=== PATIENT | male | born 1950 | race Caucasian/White ===

== ENCOUNTER → 2016-07-11 | Outpatient (REF) | payer OTHER, MEDICARE ==
[~2016-07-11] MED LIST: ALBU17IN INH; ALBU83IN INH; ALLO100T PO; AMLO10TA2 PO; AMLO5TAB2 PO; ASPI81TA85 PO; AUGM875T27 PO; BAYE81TA10 PO; CARV25TA PO; CARV6.25 PO; CHLO25TA PO; COLA100C PO; DRIS50002 PO; FERR325T3 PO; FERR32TA PO; GEMF600T PO; HUMA100I5 SC; INDO50CA PO; INSULANT SC; IRON10VL IV; KION15SU PO; LABE20TAB PO; LANTINJ4 SC; LASI20TA PO; MAGN64TASA PO; METF1000 PO; MINO25TA PO; MUCI600T34 PO; OMEP40CA2 PO; OXYC1TAB23 PO; PLAV75TA38 PO; PROT1TAB2 PO; SENN1TAB2 PO; SODI15SS PO; SUCR1TA PO; TORS20TA2 PO; TYLE325T5 PO; TYLE650T35 PO; ULOR80TA PO; VITA-130 PO
[2016-07-11 14:50] LABS: PERCENT SATURATION 13.7 % (19.7-37.4)
== END ==
LOC: M LAB REF 13:26
PROVIDERS: ATTEND Internal Medicine Nephrology
DX: D50.9 Iron deficiency anemia, unspecified (principal)

== ENCOUNTER 2016-07-24 06:47 | Outpatient (CLI) | payer OTHER, MEDICARE ==
[~2016-07-24] VITALS: Ht 177.8 cm; Wt 109.0 kg
[2016-07-24] MEDS ORDERED: IRON SUCROSE 375 MG in NS 250 ML IV ONE (07:00)
[2016-07-24] MEDS ORDERED: IRON SUCROSE 25 MG in NS 50 ML IV ONE (07:00)
== END 2016-07-24 11:45 | disposition home or self-care (01) ==
LOC: M INFU 06:47
PROVIDERS: ATTEND Internal Medicine Nephrology
DX: D50.9 Iron deficiency anemia, unspecified (principal); I10 Essential (primary) hypertension; I50.9 Heart failure, unspecified; J44.9 Chronic obstructive pulmonary disease, unspecified; Z79.51 Long term (current) use of inhaled steroids; Z79.899 Other long term (current) drug therapy
CPT/HCPCS: 96365; 96366; J1756

== ENCOUNTER → 2016-08-13 | Outpatient (CLI) | payer OTHER, MEDICARE ==
[2016-08-13 18:01] LABS: ALBUMIN 3.6 GM/DL (3.2-5.2); CALCIUM LEVEL 8.7 MG/DL (8.8-10.2); CREATININE FOR GFR 2.81 MG/DL (0.70-1.30); GLOMERULAR FILTRATION RATE 24.2 (>49); PHOSPHORUS LEVEL 3.9 MG/DL (2.5-4.9); POTASSIUM SERUM 3.6 MEQ/L (3.5-5.1); URIC ACID 10.4 MG/DL (3.5-7.2)
== END ==
LOC: M WUC 11:13
PROVIDERS: ATTEND Physician Assistant
DX: M10.022 Idiopathic gout, left elbow (principal)

== ENCOUNTER → 2016-08-23 | Outpatient (CLI) | payer OTHER, MEDICARE ==
[2016-08-23 18:54] LABS: BASO # 0.1 K/mm3 (0.0-0.2); BASO % 0.3 % (0.0-1.0); EOS # 0.3 K/mm3 (0.0-0.50); EOS % 1.7 % (0.0-3.0); LARGE UNSTAINED CELL # 0.1 K/mm3 (0.0-0.4); LARGE UNSTAINED CELL % 0.6 % (0.0-4.0); LYMPH # 0.9 K/mm3 (1.5-4.5); MEAN CORPUSCULAR HEMOGLOBIN 27.4 pg (27.0-33.0); MEAN CORPUSCULAR HGB CONC 32.8 g/dl (32.0-36.5); MEAN CORPUSCULAR VOLUME 83.7 fl (80.0-96.0); MONO # 0.5 K/mm3 (0.0-0.8); MONO % 2.5 % (0.0-5.0); NEUTROPHILS # 16.3 K/mm3 (1.8-7.7); PLATELET COUNT, AUTOMATED 419 k/mm3 (150-450); RED CELL DISTRIBUTION WIDTH 14.9 % (11.5-14.5); WHITE BLOOD COUNT 18.1 K/mm3 (4.0-10.0)
[2016-08-23 19:02] LABS: CALCIUM LEVEL 8.4 MG/DL (8.8-10.2); CREATININE FOR GFR 2.19 MG/DL (0.70-1.30); GLOMERULAR FILTRATION RATE 32.3 (>49); URIC ACID 9.3 MG/DL (3.5-7.2)
== END ==
LOC: M WUC 09:54
PROVIDERS: ATTEND Physician Assistant
DX: M10.042 Idiopathic gout, left hand (principal)

== ENCOUNTER 2016-09-16 07:08 | Inpatient (IN) | payer OTHER, MEDICARE ==
[~2016-09-16] VITALS: Ht 177.8 cm; Wt 105.3 kg
[2016-09-16] MEDS ORDERED: ALLO10TA PO (07:28)
[2016-09-16 08:35] LABS: INR 1.13
[2016-09-16 08:42] LABS: DIFF SLIDE NUMBER 121; MEAN CORPUSCULAR HEMOGLOBIN 26.7 pg (27.0-33.0); MEAN CORPUSCULAR HGB CONC 32.3 g/dl (32.0-36.5); MEAN CORPUSCULAR VOLUME 82.8 fl (80.0-96.0); PLATELET COUNT, AUTOMATED 420 k/mm3 (150-450); RED CELL DISTRIBUTION WIDTH 16.8 % (11.5-14.5); WHITE BLOOD COUNT 6.6 K/mm3 (4.0-10.0)
--- NOTE | 2016-09-16 08:52 | REP ---
Clinical: Pain. Technique: AP, lateral, bilateral oblique views of the left hand. Findings: Vascular calcifications are identified along with arthritic degenerative changes including heterogeneity and narrowing at the interphalangeal joints and first metacarpophalangeal joint as well as areas of cortical irregularity, subchondral sclerosis and subtle cystic changes and narrowing involving the radiocarpal joint and first and second carpometacarpal joints. No acute fracture dislocation. Impression: Arthritic degenerative changes. No acute fracture or dislocation. Signed by Christopher Bautista MD 09/16/2016 08:43 A
[2016-09-16 08:55] LABS: ALBUMIN 2.7 GM/DL (3.2-5.2); ALBUMIN/GLOBULIN RATIO 0.64 (1.00-1.93); ALKALINE PHOSPHATASE 82 U/L (45-117); ALT/SGPT 9 U/L (12-78); ANION GAP 9 MEQ/L (8-16); AST/SGOT 5 U/L (15-37); BILIRUBIN,DIRECT < 0.1 MG/DL (0.0-0.2); BILIRUBIN,TOTAL 0.3 MG/DL (0.2-1.0); BLOOD UREA NITROGEN 53 MG/DL (7-18); CALCIUM LEVEL 7.9 MG/DL (8.8-10.2); CARBON DIOXIDE LEVEL 24 MEQ/L (21-32); CHLORIDE LEVEL 105 MEQ/L (98-107); CREATININE FOR GFR 2.35 MG/DL (0.70-1.30); GLOMERULAR FILTRATION RATE 29.8 (>49); GLUCOSE, FASTING 168 MG/DL (80-110); POTASSIUM SERUM 3.5 MEQ/L (3.5-5.1); SODIUM LEVEL 138 MEQ/L (136-145); TOTAL PROTEIN 6.9 GM/DL (6.4-8.2); URIC ACID 10.4 MG/DL (3.5-7.2)
--- NOTE | 2016-09-16 08:58 | REP ---
Clinical: Pain. Technique: AP and lateral views of the left forearm. Findings: No acute fracture or dislocation. 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 Impression: 1. No acute fracture dislocation 2. 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 Signed by Christopher Bautista MD 09/16/2016 08:50 A
--- NOTE | 2016-09-16 08:59 | REP ---
Clinical: Dyspnea and cough. Technique: PA and lateral. Comparison: 06/04/2016. Findings: Stable cardiomegaly. Subtle hazy infiltrates involving the mid to lower lung zones cannot be excluded and may reflect bronchitis. No discrete focal consolidation, effusion, or pneumothorax. Skeletal structures intact. Impression: Cannot exclude bronchitis. No focal consolidation. Signed by Christopher Bautista MD 09/16/2016 08:52 A
--- NOTE | 2016-09-16 09:27 | REP ---
LEFT UPPER EXTREMITY DOPPLER VENOUS ULTRASOUND: 09/16/2016. Clinical history: Left hand swelling, subcutaneous edema in the forearm and antecubital fossa. Findings: No prior study. The deep venous structures were studied and show color flow filling the jugular and subclavian veins on that left side. There is respiratory variation and augmented flow there. The axillary and brachial veins are also showing color flow and duplex Doppler showing respiratory variation and augmentation. There is complete compressibility in these vessels. The basilic and cephalic veins show full compressibility and no thrombus. In the medial upper arm, there are a few small lymph nodes the largest of which is 1.7 x 1.7 x 1 cm. There is subcutaneous edema in the antecubital fossa. Impression: 1. No Doppler venous ultrasound evidence of DVT nor superficial thrombophlebitis in the left upper arm. 2. Subcutaneous edema in the antecubital fossa noted and a few small lymph nodes in the upper arm medially, likely reactive nodes. Signed by Vamshi Gandhi MD 09/16/2016 05:02 P
[2016-09-16 09:45] LABS: ERYTHROCYTE SEDIMENTATION RATE 127 mm/hr (0-20)
[2016-09-16 09:49] LABS: BANDS 4 % (< 11); EOSINOPHILS 3 % (0-5)
[2016-09-16 09:50] LABS: OVALOCYTES 2+; POIKILOCYTOSIS 2+; POLYCHROMASIA 1+
[2016-09-16 09:51] LABS: ANISOCYTOSIS 2+
[2016-09-16 09:53] LABS: HYPOCHROMASIA 1+; MICROCYTOSIS 2+
[2016-09-16] MEDS ORDERED: FERR325T PO (10:13)
[2016-09-16] MEDS ORDERED: ASPI1TAB PO (10:14)
--- NOTE | 2016-09-16 10:41 | ECGEPIP ---
Stationary ECG Study [facility] - ED Test Date: 2016-09-16 Pat Name: RADHA MONTES Department: Room: - Gender: M Envelope Folder: ct : 1950 Requested By: Keara Romero Order Number: [id number] Reading MD: Donell Hernandez Measurements Intervals [place] Rate: 75 P: 53 DE: 214 QRS: -21 QRSD: 109 T: 36 QT: 397 QTc: 444 Interpretive Statements SINUS RHYTHM WITH FIRST DEGREE AV BLOCK NONSPECIFIC T-WAVE ABNORMALITY Electronically Signed On 09-16-2016 10:40:50 EDT by Donell Hernandez
[2016-09-16] MEDS ORDERED: DEXTROSE 50% 50 ML SYRINGE IV PRN (11:15)
[2016-09-16] MEDS ORDERED: GLUCAGON FOR INJ 1 MG VIAL (J1610) SC PRN (11:15)
[2016-09-16] MEDS ORDERED: GLUCOSE 4 GM CHEW TABLET PO PRN (11:15)
[2016-09-16] MEDS ORDERED: SOD POLYSTYRENE SULFONATE SUSP 15 GM/60 ML UD PO SCH (11:45)
[2016-09-16] MEDS ORDERED: ACETAMINOPHEN TAB 650MG DOSE (2X325MG) PO PRN (11:45)
[2016-09-16] MEDS ORDERED: ALBUTEROL SULFATE 2.5 MG/0.5 ML INH NEB SOLN INH PRN (11:45)
[2016-09-16] MEDS ORDERED: ALBUTEROL 90 MCG/ACT 8GM HFA INHALER INH PRN (11:45)
[2016-09-16] MEDS ORDERED: BISACODYL 5 MG TAB PO PRN (11:45)
[2016-09-16] MEDS: FUROSEMIDE 100 MG/10 ML VIAL (J1940) IV SCH ×2 (11:49→18:05)
[2016-09-16] MEDS: HumaLOG INSULIN (NovoLOG) PER UNIT SC SCH ×3 (12:00→20:58)
[2016-09-16 13:05] VITALS: BP 139/63
[2016-09-16] MEDS ORDERED: HEPARIN SOD (PORCINE) 5000 UNITS/ML VIAL SC SCH (14:00)
[2016-09-16] MEDS: predniSONE 20 MG TAB PO SCH ×2 (16:24→20:56)
[2016-09-16] MEDS ORDERED: FUROSEMIDE 40 MG/4 ML VIAL (J1940) IV SCH (17:00)
[2016-09-16 17:34] VITALS: BP 190/84
[2016-09-16 18:00] VITALS: BP 201/93
[2016-09-16 18:30] VITALS: BP 194/106
[2016-09-16 18:40] VITALS: BP 193/84
[2016-09-16] MEDS: FEBUXOSTAT 40 MG TABLET (ULORIC) PO SCH (18:43)
[2016-09-16 20:00] VITALS: BP 143/63
[2016-09-16] MEDS: CARVedilol 12.5 MG TAB PO SCH (20:56)
[2016-09-16] MEDS: MINOXIDIL 2.5 MG TAB PO SCH (20:57)
[2016-09-16] MEDS: amLODIPine 10 MG TAB PO SCH (20:57)
[2016-09-16] MEDS: GEMFIBROZIL 600 MG TAB PO SCH (20:58)
[2016-09-16] MEDS: MAGNESIUM CHLORIDE 64 MG TABCR (SLO MAG) PO SCH (20:58)
[2016-09-16] MEDS ORDERED: MAGNESIUM CHLORIDE 64 MG TABCR (SLO MAG) PO SCH (21:00)
[2016-09-16] MEDS: POTASSIUM CHLORIDE 10 MEQ SR TABLET PO SCH (21:06)
--- NOTE | 2016-09-16 21:20 | HPEPDOC ---
General Date of Admission Sep 16, 2016 at 12:16 Primary Care Physician: Sabino Mayers MD Other Providers Cardiology: Dr. Nadeem Stern Attending Physician: ROSHNI MATHEWS MD Chief Complaint The patient is a 66-year-old male admitted with a reason for visit of Acute Blood Loss Anemia, Symptomatic Anemia. Source: Patient History of Present Illness PRIMARY CARE PROVIDER: As per patient, considers Dr. Sabino Mayers to be his PCP CHIEF COMPLAINT: Dr. Mayers requested for patient to be evaluated in the ED for SOB, lower extremity edema, and Gout related pain: L elbow, forearm, hand HISTORY OF PRESENT ILLNESS: This is a 65-year-old gentleman with a past medical history significant for insulin-dependent diabetes mellitus, coronary artery disease with no stents, CHF, Gout, hyperlipidemia, hypertension, obesity with BMI of 35.9, obstructive sleep apnea noncompliant with CPAP due to intolerance, COPD, CKD stage IV, iron deficiency anemia, carotid vascular disease, GERD, presents to [facility] ED for lower extremity edema retaining fluid in the feet and calves. States that last winter in May 2016, gout flared up in the left forearm, hand, elbow which had not gone away and is present even still now. States it is so debilitating that he cannot do anything but lay in bed. States that [address] Mayers started him on colchicine, but he began to have very volatile diarrhea from it and became very sick. Patient had discontinued the colchicine at around 2 days ago. States that he was going to get back on allopurinol and had called Dr. Mayers because he was still having a problem with retaining fluid in his feet and calves. Reports that Dr. Mayers recommended for him to go to the hospital, get some blood work checked, but patient states that he did not go to the ED yesterday when advised by Dr. Mayers. He decided to come to the emergency department today instead. States that his blood count was found to be low today. States his hemoglobin levels have always been low, has had an EGD, has had a colonoscopy done, but they always came out to show nothing. States that he believes that this is kidney related since his kidney function is around 29%. States that last time, he had to have at least 2 transfusions in the past with 3-4 pints of blood previous times. Upon review of systems, patient denies fevers, chills, chest pain, headache, dizziness, nausea, vomiting, diarrhea, abdominal pain. Admits to a tiny bit of shortness of breath due to fluid which he states comes and goes and is on and off every week. Admits to weakness and that he is not as active as before. Admits to swelling in his legs and feet. Admits to 2 out of 10 pain in his left elbow on the ulnar side of his forearm, and left hand. Admits to left hand swelling and left wrist swelling. 24 hours ago his left sided elbow pain was 7 out of 10 and now it is 2 out of 10. He also states that he cannot close his left hand. If he forces to close it, it hurts. ALLERGIES: No known drug allergies PAST MEDICAL HISTORY: IDDM Coronary artery disease no stents CHF Gout Hyperlipidemia Hypertension Obesity BMI 35.9 Obstructive sleep apnea noncompliant with CPAP COPD CKD stage IV Iron deficiency anemia Cardiovascular disease GERD PAST SURGICAL HISTORY: Left carotid endarterectomy 2015 EGD Colonoscopy: A few of them. Thinks his last colonoscopy was in 2014 and nothing was found. States he had it in [place]. MEDICATIONS: Albuterol Sulfate 200 Puff/8 Gm Aers INH Q4H PRN SOB Albuterol Sulfate 2.5 Mg/3 Ml Nebu 2.5 Mg INH Q4H PRN SOB/WHEEZING Allopurinol 300 Mg PO daily Amlodipine Besylate 10 Mg Tab PO QHS Aspirin 81 Mg PO daily Carvedilol 25 Mg PO BID Chlorthalidone 25 Mg PO daily Ferrous Sulfate 325 Mg PO Q2D Gemfibrozil 600 Mg PO BID Insulin Glargine 100 Unit/Ml Inj (Lantus Solostar) 50 Units SC QAM Magnesium Chloride 64 Mg Tabcr PO BID Minoxidil 5 Mg PO QAM Minoxidil 2.5 Mg PO QHS Pantoprazole Sodium Sesquihydr (Protonix) 40 Mg Tab PO daily Sodium Polystyrene Sulfonate 15 Gm/60 Ml Susp 15 Gm PO as directed Torsemide 40 Mg PO BID Vitamin D 50,000 Unit Cap (Drisdol) 50,000 Unit PO QMONTH SOCIAL HISTORY: Lives in [place] with his , 13-year-old and 15-year-old sons. 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 Father: from prostate cancer with medical metastases to brain and lung , had bypass surgery at [facility], may have had gout. Siblings: Oldest brother from suicide: Sister from lung cancer Children: Alive and well CODE STATUS: Full code REVIEW OF SYSTEMS: All other review of systems were negative except for those stated in the HPI above. PHYSICAL EXAMINATION: Vitals: T: 97.6, BP: 119/55, RR: 20, P: 79, O2 Saturation: 94% room air General: Pleasant and cooperative male sitting at bedside in no acute distress. Awake alert oriented 3. HEENT: Head: Normocephalic, atraumatic. Eyes: sclera are nonicteric. Nose: No external lesions Neck: Supple. No cervical lymphadenopathy bilaterally. No thyromegaly. +JVD. Respiratory: Minor crackles in bases appreciated bilaterally. No wheezes or rales. Cardiovascular: regular rate and rhythm, with no murmurs, rubs or gallops. Abdomen: soft, nontender, nondistended, no hepatosplenomegaly appreciated. Bowel sounds present. Extremities: +3 pitting edema in lower extremities bilaterally. + L wrist and hand edema. Neurological: No focal neurologic deficits appreciated bilaterally. Integumentary: Skin free from rashes, lesions, abrasions Vascular: +2 radial pulses bilaterally. LABORATORY DATA: Please see below. Hemoglobin 6.6 Hematocrit 20.4 White blood cell count 6.6 BUN 53 Creatinine 2.35 GFR 29.8 Anion gap 9 Uric acid: 10.4 C-reactive protein: 2.44 BNP pending Albumin: 2.7 PT: 14 46 INR: 1.13 APTT: 34.6 MICROBOIOLOGY: Blood cultures pending 2 ELECTROCARDIOGRAM: Sinus rhythm with first-degree AV block.eft axis deviation. Nonspecific T-wave abnormality. Rate: 75 bpm, WI interval 214 ms, QRS duration: 109 ms, QTC interval: [address] elevations depressions. RADIOLOGY: Left upper extremity Doppler venous ultrasound: No Doppler venous ultrasound evidence of DVT nor superficial thrombophlebitis in the left upper arm. Subcutaneous edema and antecubital fossa noted and a few small lymph nodes in upper arm medially likely reactive nodes. Two-view PA and lateral chest x-ray: Stable cardiomegaly. Subtle hazy infiltrates involving the mid to lower lung zones cannot be excluded and reflect bronchitis. No discrete focal consolidation, effusion, or pneumothorax. Skeletal structures intact. Cannot exclude bronchitis. Left forearm radius, Ulna AP and lateral views of the left forearm: No acute fracture dislocation. Extensive synovial chondromatosis the elbow with the reflecting arthritic degenerative changes are possibly related to old injury. AP, lateral, and bilateral oblique views of the left hand X-ray: Arthritic degenerative changes. No acute fracture or dislocation. ASSESSMENT: 66 yo M is presenting for SOB, lower extremity edema/acute on chronic CHF exacerbation, symptomatic blood loss anemia, and L upper extremity gout flare. PLAN: Symptomatic Blood Loss Anemia: Obtain transfusion consent and FOBT. Will transfuse 2 units PRBCs. Will transfuse PRBCs as necessary. Consider consulting GI or surgery for scope for possible GI bleed if Hgb does not stabilize and counts keep dropping. Follow CBCs daily. Acute CHF Exacerbation: Has had echocardiogram on 12/05/13 with results as follows: normal L ventricular size and wall thickness, normal L ventricular wall motion and wall thickening, normal L ventricular systolic and diastolic function, LVEF 60%, mild mitral valve regurgitation. IVC plethora suggestive of elevated CVP of approximately 15 mmHg, suggestive of elevated estimated R ventricular systolic pressure. As per Nephrology, will diurese him with lasix 60 mg BID. Continue carvedilol 25 mg BID. Follow daily BMPs, strict I's/O's, daily weights. Attempt to keep Mg> 2 and K>4. Has 1500 [address] fluid restriction in place. CKD Stage 4: Baseline Cr ~2.1-2.8. Cr today at 2.35. Management as per Nephrology. Acute on Chronic Gout Flare in LUE and L hand: As per Nephrology, started uloric 80 mg and prednisone 20 mg BID. Will monitor daily blood sugars and fingersticks. Will add ISS for AC and HS coverage. Will add hypoglycemic protocol. IDDM: ISS coverage at AC and HS. Daily fingersticks. Glucose levels anticipated to increase secondary to prednisone. Will strictly monitor glucose levels and add long-acting/basal insulin if necessary. Coronary artery disease: continue aspirin, gemfibrozil, and carvedilol. Hyperlipidemia: continue gemfibrozil. Hypertension: Will hold home diuretics for now as lasix is being started. Will continue minoxidil and norvasc 10 mg QHS. Obesity BMI 35.9: Will chromosomal disorders counselor on the importance of weight loss, diet, and exercise. Obstructive sleep apnea noncompliant with CPAP: Patient apparently intolerant to CPAP. Will reevaluate and recommend outpatient follow up with Pulmonology. COPD: Stable. Satting 90s on room air. Continue proventil nebulizer 2.5 mg q4H PRN INH SOB/wheezing and 2 puffs q4H PRN INH SOB Iron deficiency anemia: continue ferrous sulfate. Cardiovascular disease: consider statin therapy as outpatient, as has diabetes and cardiovascular/stroke risk factors. GERD: pantoprazole 40 mg PO daily DVT ppx: TEDs and SCDs. No pharmacologic ppx due to bleeding risk. FULL CODE STATUS Immunizations as per protocol. My preceptor for this patient encounter was Dr. Roshni Mathews, and was physically present in the building during the encounter and was fully available. As needed , all aspects of the patient interview, examination, medical decision making process, and medical care plan development were reviewed and approved by the preceptor. Preceptor is aware and concurs with the plan as stated in the body of this note and will attest to such by his/her cosignature. I have both independently examined this patient as well as reviewed documentation. I have discussed the findings in detail with Dr. Greenwood the findings and plan of treatment as documented in the note. I will continue to follow the patient and offer further guidance to the patients care as necessary. Home Medications Scheduled (Colchicine) 0.6 Mg Tab 0.6 MG PO DAILY Amlodipine Besylate (Amlodipine Besylate) 10 Mg Tab 10 MG PO QHS (Reported) Aspirin (Aspirin 81) 81 Mg Tab 81 MG PO DAILY (Reported) Carvedilol (Carvedilol) 25 Mg Tab 25 MG PO BID (Reported) Febuxostat (Uloric) 40 Mg Tab 80 MG PO DAILY Ferrous Sulfate (Ferrous Sulfate) 325 Mg Tab 325 MG PO DAILY Gemfibrozil (Gemfibrozil) 600 Mg Tab 600 MG PO BID (Reported) Insulin Glargine (Lantus Solostar) 100 Unit/Ml Inj 50 UNITS SC QAM (Reported) Magnesium Chloride (Mag64) 64 Mg Tabcr 64 MG PO BID (Reported) Minoxidil (Minoxidil) 2.5 Mg Tab 5 MG PO QAM (Reported) Minoxidil (Minoxidil) 2.5 Mg Tab 2.5 MG PO QHS (Reported) Pantoprazole Sodium Sesquihydr (Protonix) 40 Mg Tab 40 MG PO DAILY Prednisone (Prednisone) 10 Mg Tab 10 MG PO ASDIRECTED 1 tablet PO BID for 5 days, then 1 tablet PO daily for 5 days, then 1 tablet every other day for 5 doses. Then, stop. Torsemide (Torsemide) 20 Mg Tab 40 MG PO BID (Reported) Vitamin D (Drisdol) 50,000 Unit Cap 50,000 UNIT PO QMONTH (Reported) Scheduled PRN Albuterol Sulfate (Ventolin Hfa) 200 Puff/8 Gm Aers 2 PUFF INH Q4H PRN PRN SHORTNESS OF BREATH (Reported) Albuterol Sulfate (Albuterol Sulfate) 2.5 Mg/3 Ml Nebu 2.5 MG INH Q4H PRN PRN SOB/WHEEZING (Reported) Allergies Coded Allergies: No Known Allergies (Verified , 12/26/02) Vital Signs As above. Laboratory Data Labs 24H Laboratory Tests 2 09/16/16 08:04: Activated Partial Thromboplast Time 34.6, Aspartate Amino Transf (AST/SGOT) 5L, Alanine Aminotransferase (ALT/SGPT) 9L, Alkaline Phosphatase 82, Total Bilirubin 0.3, Direct Bilirubin < 0.1, Albumin 2.7L, Albumin/Globulin Ratio 0.64L, Anion Gap 9, B-Type Natriuretic Peptide 475H, C-Reactive Protein, Quantitative 3.44H, Calcium Level 7.9L, Creatine Kinase MB 2.7, Creatine Kinase MB Relative Index 3.80, Glomerular Filtration Rate 29.8L, Lactic Acid Level 1.2 , Prothromb Time International Ratio 1.13, Prothrombin Time 14.6H, Total Creatine Kinase 71, Total Protein 6.9, Troponin I < 0.02, Uric Acid 10.4H 09/16/16 08:06: Anisocytosis 2+, Band Neutrophils 4, Basophilic Stippling 1+, Eosinophils ( Manual) 3, Erythrocyte Sedimentation Rate 127H, Hypochromasia 1+, Lymphocytes ( Manual) 12L, Microcytosis 2+, Neutrophils 81H, Ovalocytes 2+, Platelet Estimate NORMAL, Poikilocytosis 2+, Polychromasia 1+ 09/16/16 17:43: Bedside Glucose (Misc Panel) 239H 09/16/16 20:15: Bedside Glucose (Misc Panel) 242H CBC/BMP Laboratory Tests 09/16/16 08:04 09/16/16 08:06 Red Blood Count 2.46 L, Mean Corpuscular Volume 82.8, Mean Corpuscular Hemoglobin 26.7 L, Mean Corpuscular Hemoglobin Concent 32.3, Red Cell Distribution Width 16.8 H 09/16/16 20:04 Microbiology Microbiology 09/16/16 Blood Culture, Received Pending 09/16/16 Blood Culture, Received Pending Plan / VTE VTE Prophylaxis Ordered?: Yes (TEDs and SCDs) HAILEY GREENWOOD OGPR-1 Sep 16, 2016 21:20 ROSHNI MATHEWS MD Sep 22, 2016 15:54 09/16/16 20:04 Microbiology Microbiology 09/16/16 Blood Culture, Received Pending 09/16/16 Blood Culture, Received Pending Plan / VTE VTE Prophylaxis Ordered?: Yes (TEDs and SCDs) HAILEY GREENWOOD OGPR-1 Sep 16, 2016 21:20
--- NOTE | 2016-09-16 21:43 | CR ---
DATE OF CONSULTATION: 09/16/2016 PRIMARY CARE PROVIDER: Dr. Mayers CHIEF COMPLAINT: Shortness of breath. REASON FOR CONSULTATION: Assistance in management of acute on chronic kidney disease and fluid overload. HISTORY OF THE PRESENT ILLNESS: Mr. Isaac is a 66-year-old male with past medical history of stage IV kidney disease, diastolic congestive heart failure (CHF) and chronic gout who was sent in from Dr. Mayers's office for shortness of breath. Episode started last night. He states that he was sleeping and a feeling of difficulty breathing woke him up from sleep. He went on to use his nebulizer twice and after treatment and moving from his bed to sleeping in the chair, his breathing improved. It is uncertain how long the episode lasted. He states that he rarely uses his nebulizer, only uses it every few months. He is somewhat inconsistent regarding his shortness of breath. At times, he will state that he has intermittent shortness of breath but other times he states that he is able to walk for at least 1-2 blocks without significant problem with breathing as long as he does not carry heavy items in his hands. Denies cough, fevers, chills, weight gain. He does report significant leg swelling, but lost 10 pounds in the last 2 months due to being more healthy. For his gout, he has cut down his red meat intake along with alcohol. The last time he drank was 2 months ago. He used to drink a six-pack or more a day, but has stopped this altogether and has now replaced this with drinking one gallon of water a day along with 2-3 cans of sixteen ounces of diet soda. He also has increased his cheese intake at home. Because of his gout exacerbation, he was treated outpatient with colchicine for at least 1 week and stated that after he started on colchicine, he developed significant diarrhea, was going constantly but unable to quantify amount. He has since stopped his colchicine use 2 days ago and stated that his diarrhea has also resolved. Did not like to be on Uloric in the past because was causing gout flare-up and he was also drinking alcohol while on Uloric. His pain to his hand is now significantly improved compared to yesterday. PAST MEDICAL HISTORY: Chronic kidney disease, stage IV. Chronic gout. Congestive heart failure, ejection fraction (EF) of 60% in 2013. Mitral valve disorder. Obesity. Chronic obstructive pulmonary disease (COPD). Obstructive sleep apnea (ENEDIAN), non-tolerant of continuous positive airway pressure (CPAP). Aortic valve disorder. Carotid artery stenosis, status post endarterectomy. Type 2 diabetes. Hyperlipidemia. PAST SURGICAL HISTORY: Left carotid endarterectomy. Esophagogastroduodenoscopy (EGD) in May 2016 for iron deficiency anemia showed small hiatus hernia, congestive gastropathy, gastritis. Pathology did not show acute or chronic inflammation. He also had colonoscopy recently by colorectal surgeon in [place], which was unrevealing in the past. ALLERGIES: No known drug allergies. HOME MEDICATIONS: - Ventolin HFA two puffs inhaled every 4 hours as needed - albuterol sulfate 2.5 mg every 4 hours as needed - allopurinol 300 mg by mouth daily, which he has not been taking this for a few days - Norvasc 10 mg by mouth nightly - aspirin 81 mg by mouth daily - Coreg 25 mg by mouth twice a day - chlorthalidone 25 mg by mouth daily - ferrous sulfate 325 mg every 2 days - gemfibrozil 600 mg by mouth twice a day - Lantus SoloStar 50 units subcu every morning - magnesium chloride 64 mg by mouth twice a day - minoxidil 5 mg by mouth every morning - minoxidil 2.5 mg nightly - Protonix 40 mg by mouth daily - Sodium polystyrene 15 gm by mouth as directed - torsemide 40 mg by mouth twice a day - vitamin D 50,000 units every month FAMILY HISTORY: Father had coronary artery disease and BPH. One sister from lung cancer. SOCIAL HISTORY: The patient is an ex-smoker. He used to smoke for 30 years, up to four pack a day. He quit 15 years ago. He used to drink alcohol heavily, quit 2 months ago. No drug use. He lives at home with his and son. 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 He has one dog at home. No exposure to tuberculosis or asbestos he is aware of. No recent travel. REVIEW OF SYSTEMS: CONSTITUTIONAL: Denies fevers, chills, rigors. Positive for intentional 10- pound weight loss. HENT: Denies headaches, lightheadedness, difficulty with speech and swallow. EYES: No dizziness, blurry vision CARDIOVASCULAR: Positive for chronic leg swelling but not chest pain. Positive for shortness of breath and paroxysmal nocturnal dyspnea, pillow orthopnea last night. PULMONARY: No cough. Positive for shortness of breath as mentioned above. No hemotysis. Positive for ENEDINA but not on CPAP. GASTROINTESTINAL: Positive for diarrhea, which has since resolved 2 days ago. No hematemesis, hematochezia, melena. GENITOURINARY: No dysuria, frequency or hematuria. MUSCULOSKELETAL: No bone, muscle. Positive for left hand pain from gout. NEUROLOGICAL: No paralysis, paresthesia, headaches. ENDOCRINE: Positive for diabetes. LYMPHATICS: No lumps, bumps, or swelling anywhere in neck, axilla, or groin. HEMATOLOGY: No abnormal bleeding or bruising. PSYCHIATRIC: No anxiety SKIN: Positive for redness to left hand which is improved. PHYSICAL EXAMINATION: VITAL SIGNS: Blood pressure 163/75, heart rate 72, respiration rate 20, temperature 98.5, pulse oximetry 99% on room air. Weight is 108.8 kg. GENERAL: Patient is sitting in bed, comfortable, in no acute distress. He is alert, awake, oriented times three, pleasant and cooperative. HEENT: Normocephalic, atraumatic, moist oral mucosa, fair dentition. Eyes: Extraocular movements intact. Pupils equal and reactive to light. NECK: Supple, trachea midline. Jugular venous distention (JVD) is up to his ears. Left neck with a scar from his prior endarterectomy. HEART: Distant sounding but regular with normal S1 and S2. Could not appreciate murmurs, rubs or gallops. CHEST: No accessory muscle use. Breath sounds diminished bilateral lung field. EXTREMITIES: He has 3+ pitting edema extending to his knees. No sacral edema. Left hand is tender to palpation and edematous with some redness. NEUROLOGIC: No focal deficits. Alert, awake, oriented times three. Strength 5/5 in all extremities. : The patient was offered rectal exam but declined, stated that it was against his jew to have rectum examined for blood, though he was okay with blood transfusion. SKIN: There is some redness by his left hand. NEUROLOGIC: Alert, awake, oriented, without focal deficits. PSYCHIATRIC: Initially mildly anxious, pleasant, cooperative. MUSCULOSKELETAL: He is very tender to palpation of left hand, strength and mobility are decreased due to pain. LABORATORY DATA: WBC 6.6, hemoglobin 6.6, hematocrit 20.4. This is the lowest hemoglobin he has ever had. Platelets 420. Neutrophils 81. ESR 127. Sodium 138, potassium 3.5, chloride 105, carbon dioxide 24, BUN 53, creatinine 2.35, glucose 168,calcium 7.9, AST 5, ALT 9, alkaline phosphatase 82. Troponin negative. CRP 3.44. BNP 475, albumin 2.7, total protein 6. 9. PT 14.6, INR 1.13. Chest x-ray reviewed independently shows pulmonary congestion. Ultrasound of left upper extremity: No evidence of deep vein thrombosis (DVT). There is subcutaneous edema in the antecubital fossa and a few small lymph nodes at the left upper arm medially. Radius/ulna x-ray showed no acute fracture or dislocation. Extensive synovial chondromatosis of the elbow, likely reflecting arthritic or degenerative changes , or possibly related to old injury. Hand x-ray shows arthritic changes. No fracture or dislocation. IMPRESSION AND PLAN: Mr. Isaac is a 66-year-old male with a history of chronic kidney disease, stage IV, chronic gout, chronic anemia, congestive heart failure and obstructive sleep apnea, noncompliant with continuous positive airway pressure, who was sent in due to episode of shortness of breath. 1. Shortness of breath. Likely due to a combination of CHF exacerbation and severe anemia. We have given him his first dose of Lasix. Will require Lasix 60 mg twice a day IV. Continue strict intake and output. He already has two units of packed red blood cells ordered in the emergency department. 2. Congestive heart failure exacerbation, diastolic. Will be receiving Lasix 60 mg IV twice a day as mentioned. Continue daily weight, intake and output. He will be placed on 1500 mL fluid restriction. This is likely due to noncompliance with his diet. Reportedly was compliant with his medication but was drinking up to a gallon a water a day. On top of that, was drinking 2-3 cans of Diet Coke. His echo in 2013 showed ejection fraction (EF) of 60%. Continue to monitor his electrolytes while being diuresed. 3. Severe symptomatic anemia. He is currently being transfused with two units of packed red blood cells. Continue his home iron supplementation. Due to concern for worsening of his CHF, the patient will be receiving diuretics , as mentioned above. He had endoscopies for this in the past and were unrevealing. 4. Acute gout flare. He tolerated indomethacin well in the past, but unfortunately, could not be on this medication due to his renal failure. He was concerned that Uloric might worsen his flareup and, therefore, was only on this medication for a brief amount of time outpatient. The patient could not be on prednisone outpatient due to his worsening hyperglycemia and required close monitoring. Because he is currently inpatient, recommend starting him on prednisone 20 mg twice a day and continue insulin sliding scale to cover for episodes of hyperglycemia. Because we are starting him on Uloric tomorrow, recommend holding his home dose of allopurinol. 5. Obstructive sleep apnea. Could not tolerate CPAP in the past. 6. Hypertension. He is currently on Coreg 25 mg by mouth twice a day, Norvasc 10 mg nightly. He was taking torsemide at home, but he is now on Lasix as mentioned above. Thank you for allowing us to participate in Mr. Isaac's care. Will continue to follow him with you. My preceptor for this patient encounter was Dr. Mayers. The preceptor was physically present in the building during the encounter and was fully available. As needed, all aspects of the patient interview, examination, medical decision making process, and medical care plan development were reviewed and approved by the preceptor. The preceptor is aware and concurs with the plan as stated in the body of this note and will attest to such by his/her cosignature. BETZY
[2016-09-17] VITALS: BP 154/67
[2016-09-17 04:48] VITALS: BP 131/86
[2016-09-17 05:29] LABS: ALBUMIN 2.9 GM/DL (3.2-5.2); CALCIUM LEVEL 8.3 MG/DL (8.8-10.2); CREATININE FOR GFR 2.25 MG/DL (0.70-1.30); GLOMERULAR FILTRATION RATE 31.3 (>49); MEAN CORPUSCULAR HEMOGLOBIN 28.5 pg (27.0-33.0); MEAN CORPUSCULAR HGB CONC 33.8 g/dl (32.0-36.5); MEAN CORPUSCULAR VOLUME 84.5 fl (80.0-96.0); PHOSPHORUS LEVEL 4.7 MG/DL (2.5-4.9); RED CELL DISTRIBUTION WIDTH 16.2 % (11.5-14.5); URIC ACID 10.2 MG/DL (3.5-7.2); WHITE BLOOD COUNT 7.6 K/mm3 (4.0-10.0)
[2016-09-17] MEDS: HumaLOG INSULIN (NovoLOG) PER UNIT SC SCH ×4 (06:44→20:44)
[2016-09-17 08:00] VITALS: BP 133/60
[2016-09-17] MEDS: FEBUXOSTAT 40 MG TABLET (ULORIC) PO SCH (08:38)
[2016-09-17] MEDS: MAGNESIUM CHLORIDE 64 MG TABCR (SLO MAG) PO SCH ×2 (08:38→20:43)
[2016-09-17] MEDS: GEMFIBROZIL 600 MG TAB PO SCH ×2 (08:38→20:42)
[2016-09-17] MEDS: FUROSEMIDE 40 MG/4 ML VIAL (J1940) IV SCH ×2 (08:38→17:21)
[2016-09-17] MEDS: PANTOPRAZOLE 40MG TAB (PROTONIX) PO SCH (08:39)
[2016-09-17] MEDS: CARVedilol 12.5 MG TAB PO SCH ×2 (08:39→20:42)
[2016-09-17] MEDS: POTASSIUM CHLORIDE 10 MEQ SR TABLET PO SCH (08:39)
[2016-09-17] MEDS: predniSONE 20 MG TAB PO SCH ×2 (08:40→20:42)
[2016-09-17] MEDS: MINOXIDIL 2.5 MG TAB PO SCH ×2 (08:40→20:44)
[2016-09-17] MEDS ORDERED: CHLORTHALIDONE 25 MG TAB PO SCH (09:00)
[2016-09-17] MEDS ORDERED: ASPIRIN 81 MG ENTERIC TAB PO SCH (09:00)
[2016-09-17 12:00] VITALS: BP 136/65
--- NOTE | 2016-09-17 12:37 | IPN ---
DATE: 09/17/2016 This is a 66-year-old male who was seen and examined in intensive care unit (ICU ) room. He is under progressive care unit (PCU) status but due to bed availability, he is in the ICU. Overnight, he made very good urine output after receiving a total of Lasix 120 mg. Feels a lot better with his hands and denies any shortness of breath, fevers, palpitations, chest pain. Continues to deny any diarrhea episodes which he previously had prior to admission. OBJECTIVE: Blood pressure 133/60, heart rate 80, temperature 98.1, respiration rate 16, pulse oximetry 94% on room air. Intake and output the last 24 hours: 1405 and 5335, net negative of 4 liters. Weight is 105 kg. Yesterday was 108. GENERAL: The patient is lying in bed at 30 degree angle, comfortable, no acute distress. He is alert, awake, and oriented times three. Pleasant, cooperative. HEENT: Normocephalic, atraumatic. Nasal septum midline. Extraocular movements intact. NECK: Supple. No longer has jugular venous distention (JVD) today compared to yesterday. CHEST: Symmetric chest rise. No accessory muscle use. Breath sounds were diminished but clear bilaterally. HEART: Distant sounding but regular. Could not appreciate murmurs, rubs or gallops. ABDOMEN: Obese but nontender, nondistended. Bowel sounds present. No guarding. No rebound. No peritoneal signs. EXTREMITIES: Bilateral lower extremity with 1+ pitting, which is significantly better compared to 3+ yesterday. Pedal pulses are present bilaterally. Left upper extremity appears less erythematous today compared to yesterday. He is able to move his hand well. NEUROLOGIC: Alert, awake, oriented times three. No focal deficits. PSYCHIATRIC: Pleasant, cooperative. LABORATORY DATA: WBC 7.6, hemoglobin 9.5, hematocrit 28, platelets 482. Sodium 139, potassium 4.0, chloride 103, carbon dioxide 25, BUN 53, creatinine 2.25, mildly improved from yesterday 2.35. Glucose is 429. His fingerstick glucose has been ranging in the 239 to 423. Calcium 8.3, uric acid 10.2, phosphorous 4.7, magnesium 2, albumin 2.9. Blood cultures negative after 24 hours. No new imaging. MEDICATIONS: Reviewed: - Lasix is changed from 60 IV twice a day down to 40 twice a day - potassium chloride 20 mEq No other changes to his medications have been made. IMPRESSION/PLAN: Mr. Isaac is a 66-year-old male with a history of chronic kidney disease stage IV, chronic gout, congestive heart failure, who presented for shortness of breath and left hand pain. 1. Congestive heart failure (CHF) exacerbation, diastolic. He diuresed very well with Lasix 60 mg IV twice a day. Therefore, we have since decreased his Lasix to 40 mg twice a day. Continue strict input and output. Continue with 1500 mL fluid restriction. 2. Severe symptomatic anemia. He is status post 2 units of packed red blood cells and tolerates that well. His hemoglobin has improved, as expected. Continue home iron supplementation. 3. Acute on chronic gout. Continue prednisone and Uloric. He was on Colchicine outpatient until development of diarrhea. 4. Obstructive sleep apnea. Could not tolerate home CPAP. 5. Diabetes with hyperglycemia. His glucose is higher now that he is on prednisone. He is on insulin sliding scale and will start him basal insulin today. 6. Hypertension. Continue Norvasc 10 mg at night, Coreg 25 mg twice a day. He is also on Lasix, as mentioned above. My preceptor for this patient encounter was Dr. Mayers. The preceptor was physically present in the building during the encounter and was fully available. As needed, all aspects of the patient interview, examination, medical decision making process, and medical care plan development were reviewed and approved by the preceptor. The preceptor is aware and concurs with the plan as stated in the body of this note and will attest to such by his/her cosignature. BETZY
[2016-09-17] MEDS: LEVEMIR (INSULIN DETEMIR) 1 UNITS/0.01ML SC SCH (13:01)
[2016-09-17 16:00] VITALS: BP 137/63
[2016-09-17 20:00] VITALS: BP 156/67
[2016-09-17] MEDS: amLODIPine 10 MG TAB PO SCH (20:43)
--- NOTE | 2016-09-17 23:41 | IPNPDOC ---
Text Note Date of Service The patient was seen on 09/17/16. NOTE SUBJECTIVE: 66 yo M seen and examined at bedside. Denies fevers, chills, chest pain, dizziness, SOB, nausea, vomiting, abdominal pain, nausea, vomiting, diarrhea, constipation. States the swelling in his L wrist and hand has gone down and his leg swelling has gone down as well. States he has urinated a lot. Feels less SOB than yesterday and does not report SOB today. OBJECTIVE: PHYSICAL EXAMINATION: Vitals: T: 98.1, BP: 133/60, RR: 16, P: 84, O2 Saturation: 94% room air I/O: 1400/5335 mLs 24 hr yesterday, -3935 mLs balance yesterday, BMs: 0, Wt yesterday: 108.862 kg, Wt today: 104.9 kg. General: Pleasant and cooperative male sitting at bedside in no acute distress. Awake alert oriented 3. HEENT: Head: Normocephalic, atraumatic. Eyes: sclera are nonicteric. Nose: No external lesions. Neck: Supple. No cervical lymphadenopathy bilaterally. No thyromegaly. Respiratory: Minor crackles in bases appreciated bilaterally. No wheezes or rales. Diminished breath sounds in lower lung dial bilaterally. Cardiovascular: regular rate and rhythm, with no murmurs, rubs or gallops. Abdomen: soft, nontender, nondistended, no hepatosplenomegaly appreciated. Bowel sounds present. Extremities: +2 pitting edema in lower extremities bilaterally. + L wrist and hand edema improved and down from yesterday. Neurological: No focal neurologic deficits appreciated bilaterally. Integumentary: Skin free from rashes, lesions, abrasions Vascular: +2 radial pulses bilaterally. LABORATORY DATA: Please see below. Hemoglobin 9.5 from 6.6 yesterday Hematocrit 28 from 20.4 yesterday White blood cell count 7.6 from 6.6 yesterday Glucose: 429 (H)* today BUN 53 from 53 yesterday Creatinine 2.25 from 2.35 yesterday GFR 31.3 Anion gap:11 from 9 yesterday Uric acid: 10.2 from 10.4 yesterday. BNP pendin (H). MICROBOIOLOGY: Blood cultures: NGTD x 24 hours. IMAGING: No new imaging today. ASSESSMENT: 66 yo M is presenting for SOB, lower extremity edema/acute on chronic CHF exacerbation, symptomatic blood loss anemia, and L upper extremity gout flare. PLAN: Symptomatic Blood Loss Anemia: Status-post transfusion with 2 units PRBCs. Will transfuse PRBCs as necessary. Hemoglobin at 9.5 today. Will continue to monitor daily counts. Follow CBCs daily. Acute CHF Exacerbation with Echo findings of normal systolic and diastolic function with LVEF of 60% in 2013 Had ~3 L urine output. Will continue to diurese him with lasix 40 mg BID changed from 60 mg BID yesterday as per Nephrology. Continue carvedilol 25 mg BID. Follow daily BMPs, strict I's/O's, daily weights. Attempt to keep Mg>2 and K>4. Has 1500 [address] fluid restriction in place. CKD Stage 4: Baseline Cr ~2.1-2.8. Cr today at 2.25 from 2.35 yesterday. Management as per Nephrology. Acute on Chronic Gout Flare in LUE and L hand: Uric acid level still high at 10.2 from 10.4 yesterday. As per Nephrology, continue uloric 80 mg and prednisone 20 mg BID. On ISS for AC and HS coverage. Will add hypoglycemic protocol. Patient's blood glucose level was 429 today. Nephrology has added levemir 20 units sc daily. Will monitor daily blood sugars and fingersticks. IDDM: ISS coverage at AC and HS. Daily fingersticks. Glucose levels anticipated to increase secondary to prednisone. Will strictly monitor glucose levels and patient has been started on levemir 20 units sc daily. Coronary artery disease: continue aspirin, gemfibrozil, and carvedilol. Hyperlipidemia: continue gemfibrozil. Hypertension: Will hold home diuretics for now as lasix is being started. Will continue minoxidil and norvasc 10 mg QHS. Obesity BMI 35.9: Will counsellors on the importance of weight loss, diet, and exercise. Obstructive sleep apnea noncompliant with CPAP: Patient apparently intolerant to CPAP. Will reevaluate and recommend outpatient follow up with Pulmonology. COPD: Stable. Satting 90s on room air. Continue proventil nebulizer 2.5 mg q4H PRN INH SOB/wheezing and 2 puffs q4H PRN INH SOB Iron deficiency anemia: continue ferrous sulfate. Cardiovascular disease: consider statin therapy as outpatient, as has diabetes and cardiovascular/stroke risk factors. GERD: pantoprazole 40 mg PO daily DVT ppx: TEDs and SCDs. No pharmacologic ppx due to bleeding risk. FULL CODE STATUS Immunizations as per protocol. My preceptor for this patient encounter was Dr. Brennon Mathews, and was physically present in the building during the encounter and was fully available. As needed , all aspects of the patient interview, examination, medical decision making process, and medical care plan development were reviewed and approved by the preceptor. Preceptor is aware and concurs with the plan as stated in the body of this note and will attest to such by his/her cosignature. I have both independently examined this patient as well as reviewed documentation. I have discussed the findings in detail with Dr. Greenwood the findings and plan of treatment as documented in the note. I will continue to follow the patient and offer further guidance to the patients care as necessary. VS,Fishbone, I+O VS, Fishbone, I+O Laboratory Tests 09/17/16 04:55 Anion Gap 11, Uric Acid 10.2 H, Red Blood Count 3.32 L, Mean Corpuscular Volume 84.5, Mean Corpuscular Hemoglobin 28.5, Mean Corpuscular Hemoglobin Concent 33.8 , Red Cell Distribution Width 16.2 H Vital Signs Date Time Temp Pulse Resp B/P Pulse Ox O2 Delivery O2 Flow Rate FiO2 09/17/16 20:44 156/67 09/17/16 20:43 77 09/17/16 20:00 97.9 18 96 Room Air I&O- Last 24 Hours up to 6 AM 09/17/16 06:00 Intake Total 1820 ml Output Total 6085 ml Balance -4265 ml HAILEY GREENWOOD OGME-1 Sep 17, 2016 23:41 BRENNON MATHEWS MD Sep 22, 2016 15:55
[2016-09-18] VITALS: BP 113/57
[2016-09-18 04:00] VITALS: BP 153/66
[2016-09-18 05:21] LABS: MEAN CORPUSCULAR HEMOGLOBIN 27.4 pg (27.0-33.0); MEAN CORPUSCULAR HGB CONC 32.4 g/dl (32.0-36.5); MEAN CORPUSCULAR VOLUME 84.6 fl (80.0-96.0); RED CELL DISTRIBUTION WIDTH 16.8 % (11.5-14.5); WHITE BLOOD COUNT 7.3 K/mm3 (4.0-10.0)
[2016-09-18 05:33] LABS: ALBUMIN 2.9 GM/DL (3.2-5.2); CALCIUM LEVEL 8.2 MG/DL (8.8-10.2); CREATININE FOR GFR 2.14 MG/DL (0.70-1.30); GLOMERULAR FILTRATION RATE 33.2 (>49); MAGNESIUM LEVEL 1.9 MG/DL (1.8-2.4); PHOSPHORUS LEVEL 4.5 MG/DL (2.5-4.9); POTASSIUM SERUM 3.8 MEQ/L (3.5-5.1); URIC ACID 9.2 MG/DL (3.5-7.2)
[2016-09-18 08:00] VITALS: BP 134/63
[2016-09-18] MEDS: FEBUXOSTAT 40 MG TABLET (ULORIC) PO SCH (08:45)
[2016-09-18] MEDS: LEVEMIR (INSULIN DETEMIR) 1 UNITS/0.01ML SC SCH ×2 (08:45→20:47)
[2016-09-18] MEDS: HumaLOG INSULIN (NovoLOG) PER UNIT SC SCH ×4 (08:45→20:47)
[2016-09-18] MEDS: MAGNESIUM CHLORIDE 64 MG TABCR (SLO MAG) PO SCH ×2 (08:45→20:46)
[2016-09-18] MEDS: GEMFIBROZIL 600 MG TAB PO SCH ×2 (08:46→20:45)
[2016-09-18] MEDS: predniSONE 20 MG TAB PO SCH (08:46)
[2016-09-18] MEDS: PANTOPRAZOLE 40MG TAB (PROTONIX) PO SCH (08:46)
[2016-09-18] MEDS: MINOXIDIL 2.5 MG TAB PO SCH ×2 (08:46→20:45)
[2016-09-18] MEDS: FUROSEMIDE 40 MG/4 ML VIAL (J1940) IV SCH ×2 (08:47→18:01)
[2016-09-18] MEDS: CARVedilol 12.5 MG TAB PO SCH ×2 (08:47→20:44)
[2016-09-18] MEDS ORDERED: FERROUS SULFATE 325MG TAB PO SCH (09:00)
--- NOTE | 2016-09-18 11:19 | IPN ---
DATE: 09/18/2016 SUBJECTIVE: This is a 66-year-old male who was seen and examined at the bedside. Overnight, no reported acute events. This morning he feels well. Denies any chest pain, shortness of breath, nausea, vomiting, diarrhea, fevers, or chills. His left hand is significantly improved. No longer reported swelling or redness. Was seen by physical therapy and was deemed safe for discharge. He is anxious to go home. OBJECTIVE: Blood pressure 134/63, heart rate 80, temperature 98.2, respiration rate 20, pulse oximetry 98% on room air. Intake and output the last 24 hours 1820 and 2400, net negative of 580. Since midnight he has had a net negative of 1.1 liters. Weight is 104 kg. GENERAL: Patient is sitting, comfortable, in no acute distress. Alert, awake, and oriented times three. Pleasant, cooperative. HEENT: Normocephalic, atraumatic. Nasal septum midline. Moist oral mucosa. Good dentition. EYES: Extraocular movements intact. Pupils equal and reactive to light. NECK: Supple. Trachea midline. No jugular venous distention (JVD). CHEST: Symmetric chest rise. No accessory muscle use. Breath sounds were clear to auscultation bilaterally. HEART: Regular rate and rhythm, normal S1 and S2. 2/6 systolic murmur in the left 5th intercostal border radiating into the axilla. ABDOMEN: Obese but nontender, nondistended. Bowel sounds present. No guarding. No rebound. EXTREMITIES: 1-2+ pitting edema bilateral lower extremities. Pedal pulses are present, though somewhat diminished due to edematous changes. Left upper extremity is less tender to palpation today and without erythema or edema noted. NEUROLOGIC: He is alert, awake, oriented times three. PSYCHIATRIC: Pleasant, cooperative. Normal affect. LABORATORY DATA: WBC 7.3, hemoglobin 8.7, hematocrit 26.7, platelets 464. Sodium 140, carbon dioxide 26, BUN 58, creatinine 2.14, fasting glucose 327, uric acid 9.2, magnesium 1.9, phosphorous 4.5. Fasting glucose 379 range to 445. No new imaging. MEDICATIONS: Reviewed. No changes to his medications aside from long acting insulin added yesterday. IMPRESSION/PLAN: Mr. Isaac is a 66-year-old male with a history of chronic kidney disease stage IV, chronic gout, congestive heart failure, who presented for shortness of breath and left hand pain. 1. Congestive heart failure (CHF) exacerbation, diastolic. He continues to be diuresing well with Lasix 40 mg IV twice a day. Continue with current dose for now without adjustment. Continue strict input and output and a 1500 mL fluid restriction. 2. Severe symptomatic anemia. Status post 2 units of transfusions. His hemoglobin is decreased today compared to yesterday. Continue iron supplementation. He had EGD and colonoscopy recently in the past and were unrevealing. 3. Acute gout. Recommend continuing prednisone with plan for a prolonged tapering dose. Continue Uloric dose. Whenever he is discharged, he will require tapering prednisone, Uloric along with daily colchicine. 4. Obstructive sleep apnea. Could not tolerate CPAP. 5. Diabetes with hyperglycemia. His fingersticks are still high, but this is likely secondary to prednisone use. We have discussed the case with Dr. Mathews and the patient will be receiving increased dose of Levemir today. 6. Hypertension. Blood pressure is reasonable. Continue Norvasc 10 mg at night, Coreg 25 mg twice a day and Lasix twice a day. From a renal standpoint, recommend monitoring the patient's hemoglobin and hematocrit for another dasy. The patient can be transferred out of the ICU. My preceptor for this patient encounter was Dr. Sabino Mayers. The preceptor was physically present in the building during the encounter and was fully available. As needed, all aspects of the patient interview, examination, medical decision making process, and medical care plan development were reviewed and approved by the preceptor. The preceptor is aware and concurs with the plan as stated in the body of this note and will attest to such by his/her cosignature. BETZY
[2016-09-18 11:30] VITALS: BP 156/70
[2016-09-18 14:00] VITALS: BP 136/64
--- NOTE | 2016-09-18 15:42 | IPNPDOC ---
Text Note Date of Service The patient was seen on 09/18/16. NOTE SUBJECTIVE: 66 yo M seen and examined at bedside. Denies fevers, chills, chest pain, dizziness, SOB, nausea, vomiting, abdominal pain, nausea, vomiting, diarrhea, dizziness, weakness, fatigue. Admits to constipation but is not interested in any bowel regimen. L hand and wrist swelling has gone down from prior. Patient reports improvement in pain in LUE. Denies any SOB of today. OBJECTIVE: PHYSICAL EXAMINATION: Vitals: T: 98.5, BP: 153/66, RR: 18, P: 76, O2 Saturation: 96% room air I/O: 1820/2400 mLs 24 hr yesterday, -580 mLs balance yesterday, BMs: 0, Wt yesterday: 104.9 kg, Wt today: 104.2 kg General: Pleasant and cooperative male sitting up at bedside in no acute distress. Awake alert oriented 3. HEENT: Head: Normocephalic, atraumatic. Eyes: sclera are nonicteric. Nose: No external lesions. Neck: Supple. No cervical lymphadenopathy bilaterally. No thyromegaly. Respiratory: Clear to auscultation bilaterally. No wheezes, rales, rhonchi. Diminished breath sounds in lower lung idal bilaterally. Cardiovascular: regular rate and rhythm, with no murmurs, rubs or gallops. Abdomen: soft, nontender, nondistended, no hepatosplenomegaly appreciated. Bowel sounds present. Extremities: +2 pitting edema in lower extremities bilaterally. + L wrist and hand edema improved and decreased from yesterday. Neurological: No focal neurologic deficits appreciated bilaterally. Integumentary: Skin free from rashes, lesions, abrasions Vascular: +2 radial pulses bilaterally. LABORATORY DATA: Please see below. Hemoglobin 8.7 from 9.5 yesterday Hematocrit 26.7 from 28 yesterday White blood cell count 7.3 from 7.6 yesterday Glucose: 327 (H)* today from 482 yesterday BUN 58 from 53 yesterday Creatinine 2.14 from 2.25 yesterday Anion gap:10 from 11 yesterday Uric acid: 9.2 from 10.2 yesterday. MICROBIOLOGY: Blood cultures: NGTD x 48 hours. IMAGING: No new imaging today. ASSESSMENT: 66 yo M is presenting for SOB, lower extremity edema/acute on chronic CHF exacerbation, symptomatic blood loss anemia, and L upper extremity gout flare. PLAN: Symptomatic Blood Loss Anemia: Status-post transfusion with 2 units PRBCs. Will transfuse PRBCs as necessary. Hemoglobin at 8.7 from 9.5 yesterday. Will continue to monitor daily counts. Follow CBCs daily. Acute CHF Exacerbation with Echo findings of normal systolic and diastolic function with LVEF of 60% in 2014: Had ~3 L urine output. Will continue to diurese him with lasix 40 mg BID as per Nephrology. Continue carvedilol 25 mg BID. Follow daily BMPs, strict I's/O's , daily weights. Attempt to keep Mg>2 and K>4. Has 1500 [address] fluid restriction in place. CKD Stage 4: Baseline Cr ~2.1-2.8. Cr improved today at 2.14 from 2.25 yesterday. Management as per Nephrology. Acute on Chronic Gout Flare in LUE and L hand: Uric acid level still high at 9.2 from 10.2 yesterday. As per Nephrology, continue uloric 80 mg. Due to high blood sugars, will decrease prednisone 20 mg BID to prednisone 10 mg BID. On ISS for AC and HS coverage. Hypoglycemic protocol in place. Patient's blood glucose level was 327 today from 429 yesterday. Nephrology has added levemir 20 units sc daily. We will increase levemir to 25 units BID daily. Will monitor daily blood sugars and fingersticks. IDDM: ISS coverage at AC and HS. Daily fingersticks. Glucose levels anticipated to increase secondary to prednisone. Will strictly monitor glucose levels and patient has been started on levemir 10 units sc BID. Coronary artery disease: continue aspirin, gemfibrozil, and carvedilol. Hyperlipidemia: continue gemfibrozil. Hypertension: Will hold home diuretics for now as lasix is being started. Will continue minoxidil and norvasc 10 mg QHS. Obesity BMI 35.9: Recommend weight loss, diet, and exercise. Obstructive sleep apnea noncompliant with CPAP: Patient apparently intolerant to CPAP. Will reevaluate and recommend outpatient follow up with Pulmonology. COPD: Stable. Satting 90s on room air. Continue proventil nebulizer 2.5 mg q4H PRN INH SOB/wheezing and 2 puffs q4H PRN INH SOB. Iron deficiency anemia: continue ferrous sulfate. Cardiovascular disease: consider statin therapy as outpatient, as has diabetes and cardiovascular/stroke risk factors. GERD: pantoprazole 40 mg PO daily DVT ppx: TEDs and SCDs. No pharmacologic ppx due to bleeding risk. FULL CODE STATUS Immunizations as per protocol. My preceptor for this patient encounter was Dr. Brennon Mathews, and was physically present in the building during the encounter and was fully available. As needed , all aspects of the patient interview, examination, medical decision making process, and medical care plan development were reviewed and approved by the preceptor. Preceptor is aware and concurs with the plan as stated in the body of this note and will attest to such by his/her cosignature. I have both independently examined this patient as well as reviewed documentation. I have discussed the findings in detail with Dr. Greenwood the findings and plan of treatment as documented in the note. I will continue to follow the patient and offer further guidance to the patients care as necessary. VS,Fishbone, I+O VS, Fishbone, I+O Laboratory Tests 09/18/16 04:50 Anion Gap 10, Uric Acid 9.2 H, Red Blood Count 3.16 L, Mean Corpuscular Volume 84.6, Mean Corpuscular Hemoglobin 27.4, Mean Corpuscular Hemoglobin Concent 32.4 , Red Cell Distribution Width 16.8 H Vital Signs Date Time Temp Pulse Resp B/P Pulse Ox O2 Delivery O2 Flow Rate FiO2 09/18/16 14:00 98.9 77 16 136/64 96 Room Air I&O- Last 24 Hours up to 6 AM 09/18/16 06:00 Intake Total 1850 ml Output Total 3150 ml Balance -1300 ml HAILEY GREENWOOD OGME-1 Sep 18, 2016 15:42 BRENNON MATHEWS MD Sep 22, 2016 15:55
[2016-09-18] MEDS: predniSONE 10 MG TAB PO SCH (20:44)
[2016-09-18] MEDS: amLODIPine 10 MG TAB PO SCH (20:45)
[2016-09-18 22:00] VITALS: BP 141/64
[2016-09-19 06:00] VITALS: BP 158/69
[2016-09-19 07:04] LABS: MEAN CORPUSCULAR HEMOGLOBIN 27.8 pg (27.0-33.0); MEAN CORPUSCULAR HGB CONC 32.7 g/dl (32.0-36.5); MEAN CORPUSCULAR VOLUME 85.1 fl (80.0-96.0); WHITE BLOOD COUNT 8.6 K/mm3 (4.0-10.0)
[2016-09-19 07:17] LABS: ALBUMIN 3.4 GM/DL (3.2-5.2); CALCIUM LEVEL 8.7 MG/DL (8.8-10.2); CREATININE FOR GFR 2.16 MG/DL (0.70-1.30); GLOMERULAR FILTRATION RATE 32.8 (>49); MAGNESIUM LEVEL 2.2 MG/DL (1.8-2.4); PHOSPHORUS LEVEL 4.8 MG/DL (2.5-4.9); POTASSIUM SERUM 3.6 MEQ/L (3.5-5.1)
[2016-09-19] MEDS: MAGNESIUM CHLORIDE 64 MG TABCR (SLO MAG) PO SCH (08:54)
[2016-09-19] MEDS: HumaLOG INSULIN (NovoLOG) PER UNIT SC SCH (08:55)
[2016-09-19 08:56] VITALS: BP 158/69
[2016-09-19] MEDS: CARVedilol 12.5 MG TAB PO SCH (08:56)
[2016-09-19] MEDS: GEMFIBROZIL 600 MG TAB PO SCH (08:56)
[2016-09-19] MEDS: LEVEMIR (INSULIN DETEMIR) 1 UNITS/0.01ML SC SCH (08:56)
[2016-09-19] MEDS: FUROSEMIDE 40 MG/4 ML VIAL (J1940) IV SCH (08:56)
[2016-09-19] MEDS: MINOXIDIL 2.5 MG TAB PO SCH (08:57)
[2016-09-19] MEDS: predniSONE 10 MG TAB PO SCH (08:57)
[2016-09-19] MEDS: PANTOPRAZOLE 40MG TAB (PROTONIX) PO SCH (08:57)
[2016-09-19] MEDS: FEBUXOSTAT 40 MG TABLET (ULORIC) PO SCH (08:57)
[2016-09-19] MEDS ORDERED: COLCHICINE 0.6 MG TAB PO SCH (09:00)
[2016-09-19] MEDS ORDERED: FERROUS SULFATE 325MG TAB PO SCH (09:00)
[2016-09-19] MEDS ORDERED: FERR325T PO (10:55)
[2016-09-19] MEDS ORDERED: FEBU40TA PO (10:55)
[2016-09-19] MEDS ORDERED: COLC1TAB13 PO (10:55)
[2016-09-19] MEDS ORDERED: PRED10TA PO (11:07)
--- NOTE | 2016-09-19 15:23 | IPN ---
DATE: 09/19/2016 SUBJECTIVE: This is a 66-year-old male who is seen and examined at bedside. Yesterday he was transferred out of progressive care unit (PCU) to medical/surgical. This morning feels well. Denies any chest pain, shortness of breath, nausea, vomiting, diarrhea, or constipation. States that his left hand pain is significantly improved. OBJECTIVE: VITAL SIGNS: Blood pressure 158/69, heart rate 75, temperature 98.2, respiration rate 18, pulse oximetry 97% on room air. Intake and output last 24 hours: 1470 and 4 liters. Net negative of 2530. Weight is 105.3. PHYSICAL EXAMINATION: GENERAL: Patient is sitting in bed comfortable. No acute distress. He is alert, awake, oriented times three. Pleasant, cooperative. HENT: Normocephalic, atraumatic. Moist oral mucosa. NECK: Supple. Trachea midline. No jugular venous distention (JVD). EYES: Extraocular movement intact. Pupils equal and reactive to light. CHEST: Symmetric chest rise. No accessory muscle use. Breath sounds were clear to auscultation bilaterally. HEART: Regular rate and rhythm. S1, S2 normal. Systolic murmur in the 5th intercostal border, 2/6, unchanged. ABDOMEN: Obese, nontender, nondistended. Bowel sounds present. No guarding. No rebound. EXTREMITIES: Still 1-2+ pitting edema, bilateral lower extremities. Pedal pulses are diminished due to edematous changes. Left upper extremity continues to be improving without erythema or edema noted. NEUROLOGIC: He is alert, awake, oriented times three. PSYCHIATRIC: Pleasant, cooperative. Normal affect. LABORATORY DATA: WBC 8.6, hemoglobin 9.2, hematocrit 28.1, improved from yesterday, 8.7, platelets 549. Sodium 140, potassium 3.6, chloride 103, carbon dioxide 29, BUN 64, creatinine 2.16, glucose 247. Uric acid 8. Calcium 8.7, phosphorus 2.8, magnesium 2.2, albumin 3.4. MEDICATIONS: Yesterday he Solu-Medrol tapering dose down to 10 mg twice a day. IMPRESSION AND PLAN: Mr. Isaac is a 66-year-old male with history of chronic kidney disease (CKD), stage IV, chronic gout, congestive heart failure (CHF), who presented with shortness of breath and left hand pain. 1. CHF, diastolic. No longer decompensated. His decompensation was likely secondary to noncompliance with fluid restriction. We recommend resuming his home torsemide with 40 mg by mouth twice a day. Continue fluid restriction with 1500 mL daily. Patient knows that he cannot drink a gallon of water a day. 2. Severe symptomatic anemia. He is status post transfusion. Hemoglobin is improved today compared to yesterday. Patient was previously taking iron supplementation every other day. Recommend that he increase this to daily. This will also help with his bowel movements now that we are restarting him on colchicine. The patient previously was taking iron supplementation every other day only because of constipation. 3. Hyperkalemia. The patient was on Kayexalate every Thursday due to episodes of hyperkalemia. His potassium today was actually 3.6. Recommend primary team holding his Kayexalate supplementation for another week. Will consider resuming outpatient. 4. Acute gout. Continue prednisone taper. Continue Uloric dose daily. He needs to also be back on colchicine but only daily and not twice a day. He was initially hesitant on resuming his colchicine because of his diarrhea; however, discussed with him that if he takes iron supplementation daily, this might help with diarrhea. He was previously taking twice a day colchicine. 5. Obstructive sleep apnea. Could not tolerate continuous positive airway pressure (CPAP). 6. Diabetes with hyperglycemia. Hopefully this will be improving with decreased dose of prednisone. 7. Hypertension. Continue Norvasc 10 mg by mouth daily, Coreg twice a day, and resuming his home dose Torsemide. Recommend discontinuing chlorthalidone due to his multiple gout exacerbations. From a renal standpoint, the patient can go home with colchicine, Uloric, prednisone taper, iron daily, torsemide, but discontinue chlorthalidone. My preceptor for this patient encounter was Dr. Sabino Mayers. The preceptor was physically present in the building during the encounter and was fully available as needed. All aspects of the patient interview, examination, medical decision making process, and medical care plan development were reviewed and approved by the preceptor. The preceptor is aware and concurs with the plan as stated in the body of this note and will attest to such by his/her co-signature. BETZY
--- NOTE | 2016-09-21 20:30 | DS.PDOC ---
Discharge Summary General Date of Admission Sep 16, 2016 at 12:16 Date of Discharge Sep 19, 2016 at 12:47 Primary Care Physician: SABINO MAYERS MD @ Attending Physician: ROSHNI MATHEWS MD Specialist/Consultants Involve: SABINO MAYERS MD @ Discharge Summary Consults: Dr. Sabino Mayers Nephrology Discharge diagnosis: Shortness of Breath Resolved Symptomatic Blood Loss Anemia Acute on Chronic CHF Exacerbation Acute on Chronic Gout Flare in Left Upper Extremity and Left Hand Secondary diagnosis: Chronic Anemia--Iron Deficiency Anemia Chronic CHF Chronic Gout Chronic Kidney Disease Stage 4 Insulin Dependent Diabetes Mellitus Type 2 Hyperkalemia Coronary Artery Disease Hyperlipidemia Hypertension Obesity BMI 35.9 Obstructive Sleep Apnea noncompliant with CPAP COPD Iron Deficiency Anemia Cardiovascular Disease GERD Hospital course: This is a 66 yo M with PMH significant for IDDM Type 2, CAD with no stents, CHF, gout, hyperlipidemia, HTN, obesity with BMI 35.9, ENEDINA noncompliant with CPAP due to intolerance, COPD, CKD Stage IV, iron deficiency anemia, carotid vascular disease, GERD, who presented to the [facility] ED on 09/16/16 for SOB secondary to acute on chronic CHF exacerbation, symptomatic blood loss anemia, and LUE wrist/hand/elbow pain with acute on chronic gout flare. Patient was transfused 2 units PRBCs. A FOBT was not done as patient refused stating it was against his oriental orthodox to nephrology resident. H&H was monitored throughout hospital stay and remained stable without significant drops in counts. No pharmacologic DVT ppx was given due to bleeding risk. Patient was given TEDs and SCDs instead. CHF exacerbation was treated with lasix and 1500 mL fluid restriction. Carvedilol home medication was continued. Nephrology was consulted for gout and chronic kidney disease. Gout in LUE was treated by Nephrology with uloric and prednisone with strict monitoring of daily fingersticks and fasting glucose levels as patient was diabetic. Levemir and ISS with AC and HS were added for coverage throughout hospital stay. Home medications were continued. Patient reported improvement with the pain in his L hand and upper extremity. Swelling had gone down significantly and patient began to regain motion in his L hand. CHF decompensation had resolved and was most likely secondary to his noncompliance with restricting daily fluid intake. Patient initially had 3+ pitting edema which has gone down as well and improved. Initial uric acid level on presentation was 10.2 and is now down to 8 today. Patient's SOB has resolved, symptomatic blood loss anemia has resolved and Hgb & Hct have remained stable with on significant decrease in counts, CHF exacerbation has improved and is compensated, gout flare is resolving with decrease in uric acid level and decreased swelling in L hand/upper extremity with decreased pain. Patient is clinically, medically, and hemodynamically stable today. Progress note on date of discharge: Subjective: 66 yo M seen and examined at bedside. Denies fevers, chills, chest pain, dizziness, SOB, nausea, vomiting, abdominal pain, nausea, vomiting, diarrhea, dizziness, weakness, fatigue. Admits to constipation but is not interested in any bowel regimen and states that he has always had this problem since childhood. L hand and wrist swelling has gone down and patient reports improved mobility in ROM of L hand with flexion/wrist movement. Patient reports improvement in pain in LUE. Objective: Vitals: T:98.2, BP: 158/69, RR: 18, P: 75, O2 Saturation: 97% room air I/O: 1470/4000 mLs 24 hr yesterday, -2530 mLs balance yesterday, BMs: 0, Wt yesterday: 104.2 kg, Wt today: 105.3 kg General: Pleasant and cooperative male sitting up at bedside in no acute distress. Awake alert oriented 3. HEENT: Head: Normocephalic, atraumatic. Eyes: sclera are nonicteric. Nose: No external lesions. Neck: Supple. No cervical lymphadenopathy bilaterally. No thyromegaly. Respiratory: Clear to auscultation bilaterally. No wheezes, rales, rhonchi. Cardiovascular: regular rate and rhythm, with no murmurs, rubs or gallops. Abdomen: soft, nontender, nondistended, no hepatosplenomegaly appreciated. Bowel sounds present. Extremities: +1 pitting edema in lower extremities bilaterally. + L wrist and hand edema improved and decreased from yesterday. Neurological: No focal neurologic deficits appreciated bilaterally. Integumentary: Skin free from rashes, lesions, abrasions Vascular: +2 radial pulses bilaterally. Labs: Please see below. Assessment: 66 yo M presenting with SOB secondary to acute on chronic CHF exacerbation, symptomatic blood loss anemia, L upper extremity gout flare. Disposition/Plan: Home with colchicine 0.6 mg daily, uloric 80 mg PO daily, prednisone taper as directed, and ferrous sulfate to be taken daily vs. every other day to prevent diarrhea with colchicine. Continue home medications as prior with exception of discontinuing allopurinol 300 mg daily, chlorthalidone 25 mg daily, and sodium polystyrene sulfonate 15 gm as directed. Follow-up: With PCP Dr. Sabino Mayers within 7 days. Activity: As tolerated. Diet: 2 gram sodium restricted and carbohydrate consistent diet. 1500 mL fluid restriction/24 hours. Medications on discharge: Please see listed below. Time spent on discharge: 35 minutes. Vital Signs/I&Os Vital Signs Date Time Temp Pulse Resp B/P Pulse Ox O2 Delivery O2 Flow Rate FiO2 09/19/16 08:56 75 158/69 09/19/16 06:00 98.2 18 97 Room Air Microbiology Microbiology 09/16/16 Blood Culture - Final, Complete NO GROWTH AFTER 5 DAYS 09/16/16 Blood Culture - Final, Complete NO GROWTH AFTER 5 DAYS Discharge Medications Scheduled (Colchicine) 0.6 Mg Tab 0.6 MG PO DAILY Amlodipine Besylate (Amlodipine Besylate) 10 Mg Tab 10 MG PO QHS (Reported) Aspirin (Aspirin 81) 81 Mg Tab 81 MG PO DAILY (Reported) Carvedilol (Carvedilol) 25 Mg Tab 25 MG PO BID (Reported) Febuxostat (Uloric) 40 Mg Tab 80 MG PO DAILY Ferrous Sulfate (Ferrous Sulfate) 325 Mg Tab 325 MG PO DAILY Gemfibrozil (Gemfibrozil) 600 Mg Tab 600 MG PO BID (Reported) Insulin Glargine (Lantus Solostar) 100 Unit/Ml Inj 50 UNITS SC QAM (Reported) Magnesium Chloride (Mag64) 64 Mg Tabcr 64 MG PO BID (Reported) Minoxidil (Minoxidil) 2.5 Mg Tab 5 MG PO QAM (Reported) Minoxidil (Minoxidil) 2.5 Mg Tab 2.5 MG PO QHS (Reported) Pantoprazole Sodium Sesquihydr (Protonix) 40 Mg Tab 40 MG PO DAILY Prednisone (Prednisone) 10 Mg Tab 10 MG PO ASDIRECTED 1 tablet PO BID for 5 days, then 1 tablet PO daily for 5 days, then 1 tablet every other day for 5 doses. Then, stop. Torsemide (Torsemide) 20 Mg Tab 40 MG PO BID (Reported) Vitamin D (Drisdol) 50,000 Unit Cap 50,000 UNIT PO QMONTH (Reported) Scheduled PRN Albuterol Sulfate (Ventolin Hfa) 200 Puff/8 Gm Aers 2 PUFF INH Q4H PRN PRN SHORTNESS OF BREATH (Reported) Albuterol Sulfate (Albuterol Sulfate) 2.5 Mg/3 Ml Nebu 2.5 MG INH Q4H PRN PRN SOB/WHEEZING (Reported) Allergies Coded Allergies: No Known Allergies (Verified , 12/26/02) GME ATTESTATION GME ATTESTATION My preceptor for this patient encounter was Dr. Roshni Mathews, and was physically present in the building during the encounter and was fully available. As needed , all aspects of the patient interview, examination, medical decision making process, and medical care plan development were reviewed and approved by the preceptor. Preceptor is aware and concurs with the plan as stated in the body of this note and will attest to such by his/her cosignature. HAILEY LOAIZA OGME-1 Sep 21, 2016 20:30
== END 2016-09-19 12:47 | disposition home or self-care (01) | DRG 811 ==
LOC: M ED 08:14 → M ED INP 12:16 → M ICU 17:22 → M MSPAV 09-18 11:19
PROVIDERS: ADMIT Internal Medicine; ATTEND Internal Medicine
PROC: 30233N1 Transfusion of Nonautologous Red Blood Cells into Peripheral Vein, Percutaneous Approach (ICD-10-PCS; principal; 2016-09-16)
DX: D62 Acute posthemorrhagic anemia (principal); I50.33 Acute on chronic diastolic (congestive) heart failure; N18.4 Chronic kidney disease, stage 4 (severe); M10.042 Idiopathic gout, left hand; I25.10 Atherosclerotic heart disease of native coronary artery without angina pectoris; E78.5 Hyperlipidemia, unspecified; I12.9 Hypertensive chronic kidney disease with stage 1 through stage 4 chronic kidney disease, or unspecified chronic kidney disease; J44.9 Chronic obstructive pulmonary disease, unspecified; G47.33 Obstructive sleep apnea (adult) (pediatric); Z91.19 Patient's noncompliance with other medical treatment and regimen; E66.9 Obesity, unspecified; E11.65 Type 2 diabetes mellitus with hyperglycemia; E87.5 Hyperkalemia; Z68.35 Body mass index [BMI] 35.0-35.9, adult; Z79.899 Other long term (current) drug therapy; Z79.82 Long term (current) use of aspirin; Z79.52 Long term (current) use of systemic steroids; I35.0 Nonrheumatic aortic (valve) stenosis

== ENCOUNTER → 2016-12-02 | Outpatient (REF) | payer OTHER, MEDICARE ==
[~2016-12-02] MED LIST changes: +ALLO10TA PO; +ASPI1TAB PO; -COLA100C PO; +COLA100C3 PO; +COLC1TAB13 PO; +FEBU40TA PO; +FERR325T PO; +PRED10TA PO
[2016-12-02 14:47] LABS: PERCENT SATURATION 16.4 % (19.7-37.4)
== END ==
LOC: M LAB REF 13:53
PROVIDERS: ATTEND Internal Medicine Nephrology
DX: D50.9 Iron deficiency anemia, unspecified (principal)

== ENCOUNTER → 2017-03-12 | Outpatient (REF) | payer OTHER ==
[~2017-03-12] MED LIST changes: -AUGM875T27 PO; +AUGM875T28 PO; -COLA100C3 PO; +COLA100C5 PO; +FERR1TAB8 PO; -FERR325T PO; -METF1000 PO; +METF10004 PO; +MINO2.5T PO; -MINO25TA PO; -MUCI600T34 PO; +MUCI600T37 PO; +PLAV1TAB2 PO; -PLAV75TA38 PO; -PRED10TA PO; +PRED10TA2 PO; -VITA-130 PO; +VITA500T PO
== END ==
LOC: M SFHCCAPE 14:31
PROVIDERS: ATTEND Physician Assistant
DX: R05 Cough (principal); Z53.9 Procedure and treatment not carried out, unspecified reason

== ENCOUNTER → 2017-05-12 | Outpatient (REF) | payer OTHER ==
[2017-05-12 19:20] LABS: BASO # 0.1 10^3/uL (0.0-0.2); BASO % 0.5 % (0.0-1.0); EOS # 0.6 10^3/uL (0.0-0.50); EOS % 5.7 % (0.0-3.0); IMMATURE GRANULOCYTE % 0.5 % (0-0); LYMPH # 0.9 10^3/uL (1.5-4.5); LYMPH % 9.2 % (24.0-44.0); MEAN CORPUSCULAR HEMOGLOBIN 27.9 pg (27.0-33.0); MEAN CORPUSCULAR HGB CONC 32.4 g/dl (32.0-36.5); MEAN CORPUSCULAR VOLUME 86.1 fl (80.0-96.0); MONO # 0.5 10^3/uL (0.0-0.8); MONO % 5.5 % (0.0-5.0); NEUTROPHILS # 7.5 10^3/uL (1.8-7.7); NEUTROPHILS % 78.6 % (36.0-66.0); PLATELET COUNT, AUTOMATED 421 10^3/uL (150-450); RED CELL DISTRIBUTION WIDTH 16.2 % (11.5-14.5); WHITE BLOOD COUNT 9.6 10^3/uL (4.0-10.0)
[2017-05-12 20:20] LABS: ALBUMIN 3.9 GM/DL (3.2-5.2); ALBUMIN/GLOBULIN RATIO 1.18 (1.00-1.93); BILIRUBIN,TOTAL 0.6 MG/DL (0.2-1.0); CALCIUM LEVEL 8.9 MG/DL (8.8-10.2); CREATININE FOR GFR 1.92 MG/DL (0.70-1.30); GLOMERULAR FILTRATION RATE 37.5 (>49); POTASSIUM SERUM 4.3 MEQ/L (3.5-5.1); TOTAL PROTEIN 7.2 GM/DL (6.4-8.2)
== END ==
LOC: M SFHCCAPE 11:56
PROVIDERS: ATTEND Physician Assistant
DX: R06.02 Shortness of breath (principal); Z86.79 Personal history of other diseases of the circulatory system

== ENCOUNTER → 2017-08-26 | Outpatient (REF) | payer OTHER, MEDICARE ==
[2017-08-26 14:58] LABS: FERRITIN 59 NG/ML (26-388); IRON (FE) 60 UG/DL (65-175); PERCENT SATURATION 18.5 % (19.7-50.0); TOTAL IRON BINDING CAPACITY 325 UG/DL (250-450)
[2017-08-29 00:07] LABS: ANCA-ATYPICAL <1:20 titer (Neg:<1:20); ANTI-GLOMERULAR BASEMENT MEMB 5 units (0-20); CYTOPLASMIC NEUTROP AB ANCA-C <1:20 titer (Neg:<1:20); PERINUCLEAR AB ANCA-P <1:20 titer (Neg:<1:20)
== END ==
LOC: M LAB REF 13:40
DX: R80.1 Persistent proteinuria, unspecified (principal); R31.9 Hematuria, unspecified; D50.9 Iron deficiency anemia, unspecified
CPT/HCPCS: 83550

== ENCOUNTER 2017-09-11 07:39 | Outpatient (CLI) | payer OTHER ==
[2017-09-11] MEDS: IRON SUCROSE 25 MG in NS 50 ML IV (08:25)
[2017-09-11] MEDS: IRON SUCROSE 475 MG in NS 250 ML IV (09:41)
== END 2017-09-11 13:00 | disposition home or self-care (01) ==
LOC: M INFU 07:39
DX: D50.9 Iron deficiency anemia, unspecified (principal); Z79.82 Long term (current) use of aspirin; Z79.899 Other long term (current) drug therapy; Z79.4 Long term (current) use of insulin
CPT/HCPCS: J1756

== ENCOUNTER → 2017-12-09 | Outpatient (CLI) | payer OTHER ==
[2017-12-09 14:18] LABS: FERRITIN 107 NG/ML (26-388); IRON (FE) 47 UG/DL (65-175); PERCENT SATURATION 16.8 % (19.7-50.0); TOTAL IRON BINDING CAPACITY 280 UG/DL (250-450)
== END ==
LOC: M SMT 10:32
DX: J18.9 Pneumonia, unspecified organism (principal)
CPT/HCPCS: 83550

== ENCOUNTER 2017-12-30 07:41 | Outpatient (CLI) | payer OTHER ==
[2017-12-30] MEDS: IRON SUCROSE 25 MG in NS 50 ML IV (08:29)
[2017-12-30] MEDS: IRON SUCROSE 475 MG in NS 250 ML IV (08:56)
== END 2017-12-30 12:15 | disposition home or self-care (01) ==
LOC: M INFU 07:41
DX: D50.9 Iron deficiency anemia, unspecified (principal); Z79.899 Other long term (current) drug therapy; Z79.82 Long term (current) use of aspirin; Z79.4 Long term (current) use of insulin
CPT/HCPCS: J1756

== ENCOUNTER → 2018-02-08 | Outpatient (REF) | payer OTHER, MEDICARE ==
[2018-02-08 19:44] LABS: FERRITIN 39 NG/ML (26-388); IRON (FE) 43 UG/DL (65-175); PERCENT SATURATION 12.8 % (19.7-50.0); TOTAL IRON BINDING CAPACITY 337 UG/DL (250-450)
== END ==
LOC: M LAB REF 18:50
DX: D50.9 Iron deficiency anemia, unspecified (principal)
CPT/HCPCS: 83550

== ENCOUNTER 2018-03-03 07:59 | Outpatient (CLI) | payer OTHER, MEDICARE ==
[2018-03-03] MEDS: IRON SUCROSE 25 MG in NS 50 ML IV (08:43)
[2018-03-03] MEDS: IRON SUCROSE 475 MG in NS 250 ML IV (09:56)
== END 2018-03-03 13:45 | disposition home or self-care (01) ==
LOC: M INFU 07:59
DX: D50.9 Iron deficiency anemia, unspecified (principal); I50.9 Heart failure, unspecified; E11.40 Type 2 diabetes mellitus with diabetic neuropathy, unspecified; N18.4 Chronic kidney disease, stage 4 (severe); N25.81 Secondary hyperparathyroidism of renal origin; E78.5 Hyperlipidemia, unspecified; I15.0 Renovascular hypertension; M10.9 Gout, unspecified; Z79.4 Long term (current) use of insulin; Z79.82 Long term (current) use of aspirin; Z79.891 Long term (current) use of opiate analgesic; Z79.899 Other long term (current) drug therapy; Z87.891 Personal history of nicotine dependence
CPT/HCPCS: J1756

== ENCOUNTER 2018-04-06 07:00 | Day surgery (SDC) | payer OTHER, MEDICARE ==
[~2018-04-06 07:00] MED LIST changes: +ACETAMINOPHEN 325 MG TAB PO; -ALBU17IN INH; -ALBU83IN INH; -ALLO100T PO; -ALLO10TA PO; -AMLO10TA2 PO; -AMLO5TAB2 PO; -ASPI1TAB PO; -ASPI81TA85 PO; -AUGM875T28 PO; -BAYE81TA10 PO; -CARV25TA PO; -CARV6.25 PO; -CHLO25TA PO; -COLA100C5 PO; -COLC1TAB13 PO; -DRIS50002 PO; -FEBU40TA PO; -FERR1TAB8 PO; -FERR325T3 PO; -FERR32TA PO; -GEMF600T PO; -HUMA100I5 SC; -INDO50CA PO; -INSULANT SC; -IRON10VL IV; -KION15SU PO; -LABE20TAB PO; -LANTINJ4 SC; -LASI20TA PO; -MAGN64TASA PO; -METF10004 PO; +MIDAZOLAM INJ 2 MG/2 ML VIAL (J2250) As Ordered; -MINO2.5T PO; -MUCI600T37 PO; -OMEP40CA2 PO; -OXYC1TAB23 PO; +PHENYLEPHRINE HCL 10 % OPHTH. SOL 5ML OS; -PLAV1TAB2 PO; -PRED10TA2 PO; -PROT1TAB2 PO; -SENN1TAB2 PO; -SODI15SS PO; -SUCR1TA PO; -TORS20TA2 PO; -TYLE325T5 PO; -TYLE650T35 PO; -ULOR80TA PO; -VITA500T PO; +fentaNYL 100 MCG/2 ML INJECTION (J3010) As Ordered
[2018-04-06] MEDS: PHENYLEPHRINE 2.5% OPHTH SOL 2ML OS (07:49)
[2018-04-06] MEDS: TROPICAMIDE 1% OPHTH SOLN 2ML OS (07:49)
[2018-04-06] MEDS: OFLOXACIN 0.3 % (OCUFLOX) OPTH SOL 5ML OS (07:49)
[2018-04-06] MEDS: CYCLOPENTOLATE 2% OPHTH SOLN 2ML BTL OS (07:49)
[2018-04-06] MEDS: LIDOCAINE 3.5 % 1ML OPHTH TOPICAL GEL OU (07:50)
[2018-04-06 08:07] LABS: BEDSIDE GLUCOSE 212 MG/DL (80-115)
[2018-04-06] MEDS: POVIDONE-IODINE 5% OPHTH PREP SOL 30ML As Ordered (09:35)
[2018-04-06] MEDS: LIDOCAINE 1% SDV 5 ML VIAL As Ordered (09:38)
[2018-04-06] MEDS: TRIAMCINOLONE PRES FR 40 MG/ML 1ML(TRIESENCE)(OR EYE ONLY)(J3300 PER 1MG) As Ordered (09:39)
[2018-04-06] MEDS: MOXIFLOXACIN IN BSS 0.25MG/0.25ML INTRACAMERAL INJ (OR EYE ONLY)(J2280) As Ordered (09:39)
[2018-04-06] MEDS: BSS with VANC/TOB/EPI for EYE CASES IR (09:39)
[2018-04-06] MEDS: LIDOCAINE 2% W/EPIN INJ 20ML **PRES FREE As Ordered (09:39)
[2018-04-06] MEDS: HEALON DUET (HEALON 10MG/ML 0.55ML & HEALON ENDOCOAT 30MG/ML 0.85ML) As Ordered (09:39)
[2018-04-06] MEDS: AcetaZOLAMIDE 500 MG ER CAP PO (10:15)
[2018-04-06] MEDS ORDERED: TRIMETHOBENZAMIDE 300 MG CAP PO (10:15)
== END 2018-04-06 10:27 | disposition home or self-care (01) ==
LOC: M SDC 07:00
DX: H26.9 Unspecified cataract (principal); I25.10 Atherosclerotic heart disease of native coronary artery without angina pectoris; I10 Essential (primary) hypertension; E11.9 Type 2 diabetes mellitus without complications; D64.9 Anemia, unspecified; K21.9 Gastro-esophageal reflux disease without esophagitis; Z79.82 Long term (current) use of aspirin; J44.9 Chronic obstructive pulmonary disease, unspecified; Z79.899 Other long term (current) drug therapy
CPT/HCPCS: 66984

== ENCOUNTER 2018-04-26 08:11 | Day surgery (SDC) | payer OTHER, MEDICARE ==
[~2018-04-26 08:11] MED LIST changes: +PHENYLEPHRINE HCL 10 % OPHTH. SOL 5ML OD; -PHENYLEPHRINE HCL 10 % OPHTH. SOL 5ML OS
[2018-04-26] MEDS: OFLOXACIN 0.3 % (OCUFLOX) OPTH SOL 5ML OD (09:36)
[2018-04-26] MEDS: LIDOCAINE 3.5 % 1ML OPHTH TOPICAL GEL OU (09:36)
[2018-04-26] MEDS: TROPICAMIDE 1% OPHTH SOLN 2ML OD (09:37)
[2018-04-26] MEDS: PHENYLEPHRINE 2.5% OPHTH SOL 2ML OD (09:37)
[2018-04-26] MEDS: CYCLOPENTOLATE 2% OPHTH SOLN 2ML BTL OD (09:37)
[2018-04-26 09:48] LABS: BEDSIDE GLUCOSE 228 MG/DL (80-115)
[2018-04-26] MEDS: MOXIFLOXACIN IN BSS 0.25MG/0.25ML INTRACAMERAL INJ (OR EYE ONLY)(J2280) As Ordered (11:04)
[2018-04-26] MEDS: LIDOCAINE 1% SDV 5 ML VIAL As Ordered (11:04)
[2018-04-26] MEDS: POVIDONE-IODINE 5% OPHTH PREP SOL 30ML As Ordered (11:04)
[2018-04-26] MEDS: HEALON DUET (HEALON 10MG/ML 0.55ML & HEALON ENDOCOAT 30MG/ML 0.85ML) As Ordered (11:05)
[2018-04-26] MEDS: TRIAMCINOLONE PRES FR 40 MG/ML 1ML(TRIESENCE)(OR EYE ONLY)(J3300 PER 1MG) As Ordered (11:05)
[2018-04-26] MEDS: BSS with VANC/TOB/EPI for EYE CASES IR (11:05)
[2018-04-26] MEDS ORDERED: TRIMETHOBENZAMIDE 300 MG CAP PO (11:45)
[2018-04-26] MEDS: AcetaZOLAMIDE 500 MG ER CAP PO (11:47)
== END 2018-04-26 11:57 | disposition home or self-care (01) ==
LOC: M SDC 08:11
DX: H26.9 Unspecified cataract (principal); I11.0 Hypertensive heart disease with heart failure; I25.10 Atherosclerotic heart disease of native coronary artery without angina pectoris; I50.9 Heart failure, unspecified; J44.9 Chronic obstructive pulmonary disease, unspecified; E10.9 Type 1 diabetes mellitus without complications; N18.9 Chronic kidney disease, unspecified; M10.9 Gout, unspecified; K92.2 Gastrointestinal hemorrhage, unspecified; M12.9 Arthropathy, unspecified; R06.83 Snoring; G47.30 Sleep apnea, unspecified; N40.0 Benign prostatic hyperplasia without lower urinary tract symptoms; Z79.899 Other long term (current) drug therapy; Z79.82 Long term (current) use of aspirin; Z79.4 Long term (current) use of insulin
CPT/HCPCS: 66984

== ENCOUNTER → 2018-05-24 | Outpatient (REF) | payer OTHER, MEDICARE ==
[2018-05-24 14:23] LABS: PSA SCREENING 0.8 NG/ML (< 4.0)
== END ==
LOC: M LAB REF 12:50
DX: N40.1 Benign prostatic hyperplasia with lower urinary tract symptoms (principal)
CPT/HCPCS: G0103

== ENCOUNTER 2018-06-29 09:48 | Emergency (ER) | payer OTHER, MEDICARE ==
[~2018-06-29] VITALS: Ht 177.8 cm; Wt 101.7 kg
[~2018-06-29 09:48] MED LIST changes: -ACETAMINOPHEN 325 MG TAB PO; +ALBU17IN INH; +ALBU83IN INH; +ALLO100T PO; +ALLO10TA PO; +AMLO10TA5 PO; +AMLO5TAB6 PO; +ASPI1TAB PO; +ASPI81TA85 PO; +AUGM875T28 PO; +BAYE81TA10 PO; +CARV25TA PO; +CARV6.25 PO; +CHLO25TA PO; +COLA100C5 PO; +COLC1TAB13 PO; +COLC1TAB14 PO; +DRIS50003 PO; +FEBU40TA PO; +FERR1TAB8 PO; +FERR325T3 PO; +FERR32TA PO; +GEMF600T5 PO; +HUMA100I5 SC; +INDO50CA PO; +INSULANT SC; +IRON10VL IV; +KION15SU PO; +LABE20TAB PO; +LANTINJ4 SC; +LASI20TA3 PO; +MAGN64TASA PO; +METF10004 PO; -MIDAZOLAM INJ 2 MG/2 ML VIAL (J2250) As Ordered; +MINO2.5T PO; +MUCI600T37 PO; +OMEP40CA2 PO; +OXYC1TAB23 PO; -PHENYLEPHRINE HCL 10 % OPHTH. SOL 5ML OD; +PLAV1TAB2 PO; +PRED10TA2 PO; +PROT1TAB2 PO; +ROCA0.25 PO; +SENN1TAB2 PO; +SODI15SS PO; +SUCR1TA PO; +TORS20TA2 PO; +TYLE325T5 PO; +TYLE650T35 PO; +ULOR80TA PO; +VITA500T PO; -fentaNYL 100 MCG/2 ML INJECTION (J3010) As Ordered
[2018-06-29] MEDS ORDERED: PROPOFOL 200 MG/20 ML VIAL ONE (09:49)
[2018-06-29] MEDS ORDERED: SUCCINYLCHOLINE 100 MG/5 ML SYRINGE (J0330) ONE (09:49)
[2018-06-29] MEDS ORDERED: ETOMIDATE INJ 20MG/10ML VIAL ONE (09:49)
[2018-06-29] MEDS ORDERED: NALOXONE INJ 2 MG/2 ML SYRINGE (J2310) As Ordered ONE (09:52)
[2018-06-29 10:28] LABS: ABG BASE EXCESS -13.8 (-2.0-2.0); ABG HCO3 17.7 MEQ/L (22.0-26.0); ABG O2 SATURATION 92.3 % (95.0-99.0); ABG PARTIAL PRESSURE O2 89.8 mmHg (75.0-100.0); ABG STANDARD HCO3 13.7 MEQ/L (22.0-26.0); ABG TOTAL CO2 19.9 MEQ/L (23.0-31.0)
[2018-06-29] MEDS ORDERED: NS 1,000 ML IV ONE ×3 (10:30→14:45)
[2018-06-29 10:34] LABS: BASO # 0.1 10^3/uL (0.0-0.2); BASO % 0.5 % (0.0-1.0); EOS # 0.6 10^3/uL (0.0-0.50); EOS % 3.1 % (0.0-3.0); HEMATOCRIT 32.6 % (42.0-52.0); LYMPH # 3.3 10^3/uL (1.5-4.5); LYMPH % 16.6 % (24.0-44.0); MEAN CORPUSCULAR HEMOGLOBIN 29.2 pg (27.0-33.0); MEAN CORPUSCULAR HGB CONC 33.7 g/dl (32.0-36.5); MEAN CORPUSCULAR VOLUME 86.5 fl (80.0-96.0); MONO # 1.3 10^3/uL (0.0-0.8); MONO % 6.7 % (0.0-5.0); NEUTROPHILS % 70.9 % (36.0-66.0); PLATELET COUNT, AUTOMATED 500 10^3/uL (150-450); RED BLOOD COUNT 3.77 10^6/uL (4.30-6.10); WHITE BLOOD COUNT 19.8 10^3/uL (4.0-10.0)
[2018-06-29 10:39] LABS: ABG PARTIAL PRESSURE CO2 71.9 mmHg (35.0-45.0)
[2018-06-29] MEDS ORDERED: MIDAZOLAM INJ 2 MG/2 ML VIAL (J2250) As Ordered ONE (10:46)
[2018-06-29] MEDS ORDERED: PROPOFOL 1,000 MG/100 ML VIAL As Ordered ONE ×2 (10:50→11:04)
[2018-06-29 10:53] LABS: OSMOLALITY SERUM 333 MOSM/KG (280-301)
[2018-06-29] MEDS ORDERED: PROPOFOL 1,000 MG in APPROPRIATE DILUENT 1 EA IV SCH (10:53)
[2018-06-29 11:00] LABS: ACETAMINOPHEN LEVEL < 2.0 UG/ML (10.0-30.0); ALBUMIN 3.4 GM/DL (3.2-5.2); ALT/SGPT 19 U/L (12-78); BILIRUBIN,DIRECT 0.1 MG/DL (0.0-0.2); BILIRUBIN,TOTAL 0.3 MG/DL (0.2-1.0); BLOOD UREA NITROGEN 77 MG/DL (7-18); CALCIUM LEVEL 8.1 MG/DL (8.8-10.2); CARBON DIOXIDE LEVEL 20 MEQ/L (21-32); CHLORIDE LEVEL 96 MEQ/L (98-107); CPK CREATINE PHOSPHOKINASE 58 U/L (39-308); CREATININE FOR GFR 4.16 MG/DL (0.70-1.30); ETHYL ALCOHOL (ETHANOL) < 0.003 % (0.000-0.010); GLOMERULAR FILTRATION RATE 15.3 (>49); GLUCOSE, FASTING 587 MG/DL (70-100); MB/CK RELATIVE INDEX 5.52 (< OR =4); POTASSIUM SERUM 4.6 MEQ/L (3.5-5.1); SALICYLATE LEVEL < 1.7 MG/DL (5.0-30.0); SODIUM LEVEL 131 MEQ/L (136-145); TOTAL PROTEIN 7.1 GM/DL (6.4-8.2); TROPONIN I < 0.02 NG/ML (< 0.10)
[2018-06-29] MEDS ORDERED: PROPOFOL 200 MG/20 ML VIAL IV ONE (11:00)
[2018-06-29 11:03] LABS: AMPHETAMINES LEVEL URINE NEGATIVE (NEGATIVE); BARBITURATES URINE NEGATIVE (NEGATIVE); BENZODIAZEPINES URINE NEGATIVE (NEGATIVE); CANNABINOIDS URINE NEGATIVE (NEGATIVE); COCAINE METABOLITE URINE NEGATIVE (NEGATIVE); METHADONE URINE NEGATIVE (NEGATIVE); OPIATES URINE NEGATIVE (NEGATIVE); PHENCYCLIDINE URINE NEGATIVE (NEGATIVE)
--- NOTE | 2018-06-29 11:07 | REP ---
C chest one-view HISTORY: Altered mental status Comparison: None The lungs are clear. The cardiac silhouette is enlarged. The pulmonary vasculature is normal in appearance. An ET tube is present. Impression: Cardiomegaly. Electronically Signed by Aquilino Santiago MD 06/29/2018 10:59 A
[2018-06-29] MEDS ORDERED: PHENYTOIN INJection 1,000 MG in NS 100 ML IV ONE ×2 (11:15→12:30)
[2018-06-29] MEDS ORDERED: ULOR80TA PO (11:15)
[2018-06-29] MEDS ORDERED: OMEP40CA2 PO (11:21)
[2018-06-29] MEDS ORDERED: COMMENT (11:27)
[2018-06-29] MEDS ORDERED: NALOXONE INJ 2 MG/2 ML SYRINGE (J2310) IV STA (11:40)
[2018-06-29] MEDS ORDERED: MIDAZOLAM INJ 2 MG/2 ML VIAL (J2250) IV STA ×4 (11:43→14:39)
--- NOTE | 2018-06-29 11:43 | REP ---
CT Head without contrast HISTORY: Unresponsive COMPARISON: None There is an ill-defined hypodensity in the right frontal lobe with partial effacement of the overlying cortical sulci most likely representing a mass. Areas of decreased attenuation are present in the periventricular white matter. This represents small-vessel ischemic disease. There is no intraparenchymal hemorrhage, acute infarct or midline shift. The ventricular system and cortical sulci are dilated consistent with mild volume loss. There is no extra cerebral collection. There is no fracture. Mucosal thickening is present in the left ethmoid and right maxillary sinuses. IMPRESSION: 1. There is ill-defined hypodensity in the right frontal lobe with mass effect consistent with a mass. Contrast enhanced CT may be helpful for further evaluation. 2. Small vessel ischemic disease. 3. Mild volume loss. Electronically Signed by Aquilino Santiago MD 06/29/2018 11:34 A
--- NOTE | 2018-06-29 11:47 | REP ---
CT cervical spine without contrast HISTORY: Unresponsive COMPARISON: None The examination is very limited secondary to motion. There is no definite acute fracture or subluxation. A disc bulge with associated osteophyte formation is present at the C6-7 level. There is minimal narrowing of the spinal canal. Bilateral uncinate process hypertrophy is present. This produces mild narrowing of the C6 neural foramina. The remaining neural foramina are patent. The C3-4 through C6-7 intervertebral discs are decreased in height consistent with disc degeneration. An ET tube is present. IMPRESSION: 1. Limited examination demonstrating no definite fracture or subluxation. 2. There is cervical spondylosis at the C6-7 level. Electronically Signed by Aquilino Santiago MD 06/29/2018 11:39 A
[2018-06-29] MEDS ORDERED: cefTRIAXone SOD 2 GM in D5W MINI-BAG PLUS 50 ML IV ONE (12:00)
[2018-06-29] MEDS ORDERED: REFRIGERATOR IV KEYS XX PRN (12:30)
[2018-06-29] MEDS ORDERED: fentaNYL 100 MCG/2 ML INJECTION (J3010) IV ONE (12:30)
[2018-06-29] MEDS ORDERED: MIDAZOLAM HCL 100 MG in D5W 80 ML IV SCH (12:30)
[2018-06-29 12:38] LABS: ABG BASE EXCESS -11.1 (-2.0-2.0); ABG HCO3 15.9 MEQ/L (22.0-26.0); ABG O2 SATURATION 89.2 % (95.0-99.0); ABG PARTIAL PRESSURE CO2 40.1 mmHg (35.0-45.0); ABG PARTIAL PRESSURE O2 64.8 mmHg (75.0-100.0); ABG STANDARD HCO3 15.5 MEQ/L (22.0-26.0); ABG TOTAL CO2 17.2 MEQ/L (23.0-31.0)
[2018-06-29 12:41] LABS: ABG pH (ARTERIAL) 7.217 UNITS (7.350-7.450)
[2018-06-29 12:50] LABS: BILIRUBIN, URINE MANUAL NEGATIVE (NEGATIVE); GLUCOSE, URINE (UA) MANUAL 4+(1000 MG/DL) mg/dL (NEGATIVE); KETONE, URINE MANUAL NEGATIVE (NEGATIVE); UROBILINOGEN, URINE MANUAL NORMAL (NORMAL)
[2018-06-29] MEDS ORDERED: MIDAZOLAM HCL 50 MG in D5W 40 ML IV SCH (13:00)
[2018-06-29] MEDS ORDERED: MORPHINE 4 MG/ML 1ML VIAL/SYRINGE (J2270) As Ordered ONE (13:03)
[2018-06-29 13:18] LABS: BACTERIA, URINE NONE SEEN; RBC, URINE 0-1 /hpf (0-3); SQUAMOUS EPITHELIAL CELL URINE SMALL AMOUNT /hpf (SMALL AMT)
[2018-06-29 13:26] LABS: INFLUENZA A AMPLIFICATION NEGATIVE (NEGATIVE); INFLUENZA B AMPLIFICATION NEGATIVE (NEGATIVE)
[2018-06-29] MEDS ORDERED: MORPHINE 4 MG/ML 1ML VIAL/SYRINGE (J2270) IV ONE (13:30)
[2018-06-29] MEDS ORDERED: HumuLIN R (REGULAR) INSULIN (NovoLIN R) **100U/ML** PER UNIT IV ONE (13:30)
[2018-06-29 14:45] VITALS: BP 93/54
[2018-06-29] MEDS ORDERED: ETOMIDATE INJ 20MG/10ML VIAL IV ONE (14:45)
[2018-06-29] MEDS ORDERED: SUCCINYLCHOLINE INJ 200 MG/10 ML VIAL (J0330) IV ONE (14:45)
--- NOTE | 2018-06-29 18:37 | ECGEPIP ---
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
== END 2018-06-29 14:52 | disposition short-term general hospital (02) ==
LOC: EDBD 09:48 → M ED 09:48 → EDSEX 09:48 → M ED 14:52
DX: G93.9 Disorder of brain, unspecified (principal); R56.9 Unspecified convulsions; I13.0 Hypertensive heart and chronic kidney disease with heart failure and stage 1 through stage 4 chronic kidney disease, or unspecified chronic kidney disease; I50.9 Heart failure, unspecified; E11.22 Type 2 diabetes mellitus with diabetic chronic kidney disease; J44.9 Chronic obstructive pulmonary disease, unspecified; N18.9 Chronic kidney disease, unspecified; E78.9 Disorder of lipoprotein metabolism, unspecified; D64.9 Anemia, unspecified; Z87.891 Personal history of nicotine dependence; Z79.899 Other long term (current) drug therapy; Z79.4 Long term (current) use of insulin; Z79.82 Long term (current) use of aspirin
CPT/HCPCS: 31500; 36600; 51702; 70450; 71045; 72125; 80048; 80076; 80307; 82140; 82550; 82553; 82803; 83605; 83930; 84443; 84484; 85025; 87040; 87502; 93005; 93041; 96365; 96366; 96375; 96376; 99291; G0480; J0330; J0696; J1165; J2250; J2270; J2310; J3010

== ENCOUNTER 2018-07-09 16:27 | Inpatient (IN) | payer OTHER, MEDICARE ==
[~2018-07-09] VITALS: Ht 177.8 cm; Wt 94.7 kg
[~2018-07-09 16:27] MED LIST changes: +COMMENT
[2018-07-09 20:00] VITALS: BP 162/75
[2018-07-09] MEDS ORDERED: GLUCAGON FOR INJ 1 MG VIAL (J1610) SC PRN (21:00)
[2018-07-09] MEDS ORDERED: amLODIPine 5 MG TAB PO ONE (21:00)
[2018-07-09] MEDS ORDERED: GLUCOSE 4 GM CHEW TABLET PO PRN (21:00)
[2018-07-09] MEDS ORDERED: DEXTROSE 50% 50 ML SYRINGE IV PRN (21:00)
[2018-07-09] MEDS: **NOTE PATIENT COMMENT** MISC XX SCH (21:00)
[2018-07-09] MEDS ORDERED: BISACODYL 10 MG SUPP PR PRN (21:15)
[2018-07-09] MEDS ORDERED: MOM 30ML SUSPENSION UDC PO PRN (21:15)
[2018-07-09] MEDS ORDERED: LIDO5DIS41 TD (22:26)
[2018-07-09] MEDS ORDERED: IPRA0.00 INH (22:26)
[2018-07-09] MEDS ORDERED: INSUHUMDS SC (22:26)
[2018-07-09] MEDS ORDERED: DEXA4TA PO (22:26)
[2018-07-09] MEDS ORDERED: ACET-683 PO (22:26)
[2018-07-09] MEDS ORDERED: FLOM0.4C39 PO (22:36)
[2018-07-09] MEDS ORDERED: SENO8.6T5 PO (22:36)
[2018-07-09] MEDS ORDERED: PHEN50TA PO (22:36)
[2018-07-09] MEDS ORDERED: TORS100T PO (22:36)
[2018-07-09] MEDS ORDERED: [UNRECOGNIZED DRUG - CODE] SQ (22:44)
[2018-07-09] MEDS ORDERED: PILL CRUSHER/CUTTER 1 EACH XX PRN (23:30)
[2018-07-09] MEDS: HEPARIN SOD (PORCINE) 5000 UNITS/ML VIAL SQ SCH (23:36)
[2018-07-09] MEDS: OMEPRAZOLE 20 MG CAP PO SCH (23:36)
[2018-07-09] MEDS: GEMFIBROZIL 600 MG TAB PO SCH (23:36)
[2018-07-09] MEDS: TAMSULOSIN 0.4 MG CAP PO SCH (23:36)
[2018-07-09] MEDS: CARVedilol 12.5 MG TAB PO SCH (23:37)
[2018-07-09] MEDS: ACETAMINOPHEN 500 MG TAB PO SCH (23:37)
[2018-07-09] MEDS: PHENYTOIN 50 MG CHEW TABLET PO SCH (23:38)
[2018-07-09] MEDS: LEVEMIR (INSULIN DETEMIR) 1 UNITS/0.01ML SC SCH (23:38)
[2018-07-10] MEDS ORDERED: LORazepam 2 MG/ML VIAL (J2060) IV PRN (02:30)
[2018-07-10 06:00] VITALS: BP 164/80
[2018-07-10] MEDS: HEPARIN SOD (PORCINE) 5000 UNITS/ML VIAL SQ SCH ×3 (06:16→23:14)
[2018-07-10] MEDS: PHENYTOIN 50 MG CHEW TABLET PO SCH ×3 (06:17→23:12)
[2018-07-10 06:48] LABS: AMORPHOUS SEDIMENT SMALL (NEGATIVE); APPEARANCE, URINE CLEAR (CLEAR); BACTERIA, URINE AUTO 1+ (NEGATIVE); BILIRUBIN, URINE AUTO NEGATIVE (NEGATIVE); BLOOD, URINE BLOOD NEGATIVE (NEGATIVE); COLOR, URINE STRAW (YELLOW); GLUCOSE, URINE (UA) AUTO NEGATIVE (NEGATIVE); KETONE, URINE AUTO NEGATIVE (NEGATIVE); LEUKOCYTE ESTERASE, URINE AUTO NEGATIVE (NEGATIVE); MUCUS, URINE SMALL (NEGATIVE); NITRITE, URINE AUTO NEGATIVE (NEGATIVE); PROTEIN, URINE AUTO 1+ mg/dL (NEGATIVE); RBC, URINE AUTO 1 /HPF (0-3); SPECIFIC GRAVITY URINE AUTO 1.006 (1.002-1.035); SQUAMOUS EPITHELIAL CELL UR AU 0 /HPF (0-6); UROBILINOGEN, URINE AUTO 0.2 mg/dL (0.0-2.0); WBC, URINE AUTO 1 /HPF (0-3)
[2018-07-10] MEDS: HumaLOG INSULIN (NovoLOG) PER UNIT SC SCH ×3 (07:30→17:30)
[2018-07-10 07:32] LABS: BASO % 0.4 % (0.0-1.0); EOS # 0.2 10^3/uL (0.0-0.50); EOS % 1.7 % (0.0-3.0); HEMATOCRIT 28.4 % (42.0-52.0); HEMOGLOBIN 9.2 g/dl (13.5-17.5); LYMPH # 1.3 10^3/uL (1.5-4.5); LYMPH % 12.4 % (24.0-44.0); MEAN CORPUSCULAR HEMOGLOBIN 27.8 pg (27.0-33.0); MEAN CORPUSCULAR HGB CONC 32.4 g/dl (32.0-36.5); MEAN CORPUSCULAR VOLUME 85.8 fl (80.0-96.0); MONO # 0.7 10^3/uL (0.0-0.8); NEUTROPHILS # 8.4 10^3/uL (1.8-7.7); NEUTROPHILS % 77.9 % (36.0-66.0); PLATELET COUNT, AUTOMATED 123 10^3/uL (150-450); RED BLOOD COUNT 3.31 10^6/uL (4.30-6.10); WHITE BLOOD COUNT 10.8 10^3/uL (4.0-10.0)
[2018-07-10 08:08] LABS: BILIRUBIN,TOTAL 0.2 MG/DL (0.2-1.0); CALCIUM LEVEL 7.8 MG/DL (8.8-10.2); CREATININE FOR GFR 1.94 MG/DL (0.70-1.30); GLOMERULAR FILTRATION RATE 36.9 (>49); POTASSIUM SERUM 2.7 MEQ/L (3.5-5.1); TOTAL PROTEIN 5.8 GM/DL (6.4-8.2)
[2018-07-10] MEDS: IPRATROPIUM 0.5MG/ALBUTEROL 2.5MG INH SOL UD 3ML (DUONEB)(J7620) NEB SCH ×2 (08:15→20:00)
[2018-07-10] MEDS ORDERED: POTASSIUM CHLORIDE 10 MEQ SR TABLET PO ONE ×3 (08:30→16:00)
[2018-07-10] MEDS ORDERED: BOUDREAUX'S BUTT PASTE 4OZ TOP SCH (09:00)
[2018-07-10] MEDS ORDERED: TORSEMIDE (DEMADEX) 50 MG PER 1/2 TAB PO SCH (09:00)
[2018-07-10] MEDS: FEBUXOSTAT 40 MG TABLET (ULORIC) PO SCH (09:22)
[2018-07-10] MEDS: guaiFENesin 200 MG TAB PO SCH ×3 (09:22→23:17)
[2018-07-10] MEDS: ASPIRIN 81 MG ENTERIC TAB PO SCH (09:23)
[2018-07-10] MEDS: CALCITRIOL 0.25 MCG CAP (S0169) PO SCH (09:23)
[2018-07-10] MEDS: GEMFIBROZIL 600 MG TAB PO SCH ×2 (09:23→23:13)
[2018-07-10] MEDS: ACETAMINOPHEN 500 MG TAB PO SCH ×3 (09:27→23:13)
[2018-07-10] MEDS: SENOKOT S TAB PO SCH ×2 (09:28→21:00)
[2018-07-10] MEDS: LIDOCAINE 5% (LIDODERM) PATCH TD SCH (09:28)
[2018-07-10] MEDS: CARVedilol 12.5 MG TAB PO SCH ×2 (09:31→23:11)
[2018-07-10] MEDS: amLODIPine 10 MG TAB PO SCH (09:31)
[2018-07-10 10:18] LABS: FREE T4 1.2 NG/DL (0.76-1.46); THYROID STIMULATING HORMONE 2.15 uIU/ML (0.358-3.740)
--- NOTE | 2018-07-10 11:50 | NUR ---
Pt seen for clinical swallow evaluation. Noted decreased jaw ROM d/t surgery. Mastication was effective and without residue. However, Pt did fatigue quickly. Recommend: Mechanical soft solids and regular thin liquids. Meds whole with liquid wash. Pt must be in full upright position for all meals and medication administration. Oral care 3x a day. Language Assessment completed. Expression and Comprehension are [facility] Cognitive Evaluation administered with observed weaknesses in short term memory and slow processing. LISBETH Rodrigues aware of results and recommendations Addendum: 07/10/18 at 1155 by JARED RIOJAS [facility] Amended: Links added.
[2018-07-10] MEDS: DIAPER RELIEF PASTE (DESITIN) 60GM TOP SCH ×2 (13:13→23:14)
--- NOTE | 2018-07-10 13:13 | CR ---
DATE OF CONSULTATION: 07/09/2018 CHIEF COMPLAINT: The patient is status post resection of frontal cranial mass at [facility] in [place] on 07/05/2018. He presents here to [facility] for acute rehabilitation. HISTORY OF PRESENT ILLNESS: The patient is a 68-year-old male with significant past medical history of hypertension, diabetes, carotid stenosis status post endarterectomy or stenting, coronary artery disease (CAD), congestive heart failure (CHF), chronic obstructive pulmonary disease (COPD), obstructive sleep apnea on CPAP, chronic kidney disease (CKD), gastroesophageal reflux disease (GERD), and cataracts with recent repair. He was sent from [facility] in [place] after he had a craniotomy with resection of a frontal lobe mass. He was initially seen here at [facility] with seizure episodes and found to have frontal mass on CT. He was subsequently transferred to [facility]. He had resection of the frontal mass. This resection was completed on 07/05/2018. He is on seizure prophylaxis with Dilantin every 8 hours. He was subsequently transferred here to [facility] for acute rehabilitation. The patient is seen and examined at bedside. He is in no apparent distress. He denies any complaints. No chest pain, cough, shortness of breath, fevers, chills, abdominal pain, constipation, or diarrhea. PAST MEDICAL HISTORY: See history of present illness (HPI). PAST SURGICAL HISTORY: He has had a carotid endarterectomy stenting. He has recent removal of brain mass as well as cataract surgery. HOME MEDICATIONS: - torsemide - Norvasc - Dilantin - Coreg - calcitriol - aspirin - magnesium - insulin - Decadron taper currently - gemfibrozil - amlodipine SOCIAL HISTORY: He is a former smoker. Denies alcohol or illicit drug use. FAMILY HISTORY: Noncontributory. REVIEW OF SYSTEMS: 12 point review of systems was completed, all of which were negative except those listed in the HPI. VITALS ON ADMISSION: Temperature 97.6. Pulse 68. Respirations 17. Satting at 98% on room air. Blood pressure 162/75. PHYSICAL EXAMINATION: General: He is well nourished in no apparent distress. Head: He has surgical scar with wilda in, healing well. No erythema or drainage noted. Eyes: Extraocular movements are intact. Pupils equally round and reactive to light. Neck: Supple. No jugular venous distention (JVP). Lungs: Good air entry in the anterior chest. No crackles or wheezing. Cardiovascular: Regular rate and rhythm. Normal S1, S2. No murmurs, gallops or rub. Abdomen: Soft. Nontender. Nondistended. Positive bowel sounds. No rebound or guarding. Extremities: No pitting edema or calf tenderness. Skin: Appears to be intact. No rashes, lesions or breakdowns. Neurological Exam: He is alert and oriented times three. Power diminished in the bilateral lower extremities likely secondary to deconditioning, but sensation is intact. ASSESSMENT AND PLAN: Patient is status post resection of brain mass at [facility] on 07/05/2018 and transferred here for acute rehabilitation. Continue Decadron taper. Continue Dilantin. Seizure precautions. Dilantin level is ordered for the a.m. 2. For hypertension, continue Norvasc, Coreg. 3. For CAD and CHF, continue Coreg, Norvasc, torsemide. 4. For CKD, continue calcitriol. 5. For diabetes, continue sliding scale insulin as well as long acting insulin. 6. For BPH, continue Flomax. 7. Supportive deep vein thrombosis (DVT) prophylaxis, heparin subcutaneous. 8. Gastrointestinal prophylaxis, not indicated. DIET: Mechanical soft as per the primary team. Thank you for allowing me to participate in the care of this patient. Medicine will continue to follow.
[2018-07-10 14:00] VITALS: BP 150/60
[2018-07-10 15:27] LABS: CALCIUM LEVEL 7.8 MG/DL (8.8-10.2); CREATININE FOR GFR 1.86 MG/DL (0.70-1.30); GLOMERULAR FILTRATION RATE 38.8 (>49); POTASSIUM SERUM 3.2 MEQ/L (3.5-5.1)
--- NOTE | 2018-07-10 17:51 | CR ---
DATE OF CONSULTATION: 07/10/2018 REQUESTING PHYSICIAN: Dr. Elida Young CONSULTING PHYSICIAN: Dr. Joseph REASON FOR CONSULTATION: Management of chronic kidney disease stage III and electrolyte abnormalities. CHIEF COMPLAINT: The patient was admitted to the rehabilitation unit after neurosurgery. HISTORY OF PRESENT ILLNESS: Mr. Christopher Isaac is a 68-year-old male with a past medical history of chronic kidney disease stage III to early stage IV. He follows up with Dr. Mayers's office at the nephrology clinic. He also has a history of congestive heart failure (CHF), chronic obstructive pulmonary disease (COPD), sleep apnea and multiple other comorbidities, as mentioned below. The patient's reports that he initially had arrived at [facility] a few weeks ago with seizure. A CAT scan showed a right frontal lobe mass. He was transferred to [facility] in [place] where craniotomy and resection of the mass was done. As reported by , it was not a cancerous lesion. 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 The patient does not need any chemotherapy or radiation at this point. He is currently on the rehabilitation unit. Nephrology service has been called for further help in the management of chronic kidney disease stage III and electrolyte abnormalities. The patient has a potassium of 2.7 today and a creatinine of 1.9. I saw and evaluated the patient today this morning at the bedside. His was also present at the bedside. He was able to provide most of the history. The patient is able to communicate with me but he did have some memory problems. PAST MEDICAL HISTORY: 1. Chronic kidney disease stage III. 2. Hypertension. 3. Diabetes mellitus type 2. 4. History of carotid stenosis. 5. Coronary artery disease. 6. Congestive heart failure (CHF). 7. Chronic obstructive pulmonary disease (COPD). 8. Obstructive sleep apnea. Uses continuous positive airway pressure (CPAP) at night. 9. Gastroesophageal reflux disease (GERD). PAST SURGICAL HISTORY: 1. History of carotid endarterectomy in the past. 2. Cataract surgery in the past. 3. Status post right frontal lobe mass removal at [facility] on 07/05/2018. ALLERGIES: No known drug allergies. FAMILY HISTORY: No significant family history of end stage renal disease requiring hemodialysis. SOCIAL HISTORY: The patient denies any illicit drug abuse or alcohol abuse. He quit smoking many years ago. REVIEW OF SYSTEMS: CONSTITUTIONAL: He denies any fevers or chills. He does report some weakness. EYES: He denies any blurry vision or double vision. ENT: He denies any dysphagia, odynophagia, ear discharge. CARDIOVASCULAR: He denies any chest pain or palpitations. RESPIRATORY: He denies any shortness of breath or cough. GASTROINTESTINAL: He denies any nausea or vomiting. No pain in the abdomen. GENITOURINARY: He denies any dysuria or hematuria. MUSCULOSKELETAL: He denies any muscle aches or pains. SKIN: He denies any rashes or ulcers. CENTRAL NERVOUS SYSTEM (RIBBON CLEANER): He reports recent brain surgery and seizures before the surgery. PSYCHIATRIC: He denies any depression or anxiety. ENDOCRINE: He reports a history of diabetes mellitus type 2. HEMATOLOGY/ONCOLOGY: He denies any easy bleeding or bruising. All other review of systems are negative. PHYSICAL EXAMINATION: VITAL SIGNS: Temperature is 97.5 degrees Fahrenheit. Blood pressure 150/60, pulse 70, respiratory rate 18, saturating 95% on room air. HEAD AND NECK EXAM: Extraocular muscles are intact. Pupils are equal, round and reactive to light. The patient has a large incision with wilda in the right side of the scalp. CARDIOVASCULAR: S1, S2 regular rate. No edema of the bilateral lower extremities. RESPIRATORY: Chest is clear to auscultation bilaterally. Bilateral equal air entry. No rales or rhonchi. ABDOMEN: Soft, obese. Positive bowel sounds. Nontender. No organomegaly. MUSCULOSKELETAL: No clubbing or cyanosis. Pulses are 2+. CENTRAL NERVOUS SYSTEM (RIBBON CLEANER): No focal deficits. Power is 5/5 in all extremities. LABORATORY REVIEW: Complete blood count (CBC) showed a WBC of 10.8, hemoglobin is 9.2, platelets 123. Basic metabolic panel (BMP) showed sodium 141, potassium 2.7, chloride 105, bicarbonate 25, BUN 62, creatinine is 1.9, calcium 7.8, albumin 2.0. CURRENT INPATIENT MEDICATIONS: The patient's inpatient medications include: - Tylenol as needed - DuoNeb nebulization twice a day - amlodipine 10 mg by mouth daily - aspirin 81 mg by mouth daily - calcitriol 0.25 mcg by mouth daily - Coreg 12.5 mg by mouth twice a day - Decadron 2 mg by mouth 12 hours - Colace one tablet by mouth twice a day - Uloric 120 mg by mouth daily - gemfibrozil 600 mg by mouth twice a day - heparin subcutaneously - insulin Levemir 20 units subcutaneously at night - Ativan 2 mg as needed for seizures - milk of magnesia as needed - omeprazole 40 mg by mouth at night - Zofran 4 mg by mouth every 4 hours as needed for nausea - Dilantin chew tabs 125 mg every 8 hours - potassium chloride two doses were given, one at 8:30 and the other one at 12 noon - Flomax 0.4 mg by mouth at night - torsemide 50 mg by mouth twice a day - trazodone 20 mg as needed for insomnia ASSESSMENT: 68-year-old male with chronic kidney disease stage III, hypertension, chronic gout, diabetes mellitus type 2, admitted to rehabilitation after right frontal lobe brain mass surgery. Nephrology service following the patient for management of chronic kidney disease stage III and electrolyte abnormalities. PLAN: 1. Chronic kidney disease stage III. The patient's renal function is stable, close to baseline. GFR is 36. Okay to continue current medical regimen. I am going to hold his diuretics for now. 2. Hypokalemia. This is secondary to use of diuretics. Potassium is 2.7 today. Primary team has already ordered potassium chloride 40 mEq by mouth three times a day. This should be adequate to replete his stores. Continue to hold diuretic as well. 3. Chronic gout secondary to chronic kidney disease. The patient reports that he has chronic severe gout and he takes Uloric 120 mg by mouth daily. I will continue the home dose. 4. Hypertension with chronic kidney disease. Blood pressure is optimal. Continue current dose of amlodipine 10 mg daily. Coreg 12.5 mg by mouth twice a day. 5. Secondary hyperparathyroidism. Continue current dose of calcitriol 0.25 mcg by mouth daily. Thank you for involving me in the care of this patient. I shall be happy to follow the patient along with you tomorrow morning.
--- NOTE | 2018-07-10 19:58 | HPEPDOC ---
Community Midwife Note DATE OF ADMISSION: Jul 09, 2018 at 20:05 SOURCE OF ADMISSION INFORMATION: patient, his and [place] Medical Records CHIEF COMPLAINT: right frontal brain mass s/p resection HISTORY OF PRESENT ILLNESS: 68M pnh HTN and DM, left carotid artery stenosis s/p stenting, gout, CAD, ENEDINA, CKD3, recent GIB who initially presented to [facility] on 06/29/18 with reported seizures, arrived with a Arnav Coma Scale of 3, was given loading dose of Dilantin and intubated. CTH showed a right frontal mass so he was transferred to [facility] in [place], [place] for further work-up. Upon arrival to [facility] his GCS increased to 10, he was able to follow commands, was put on neuro checks and made NPO. At [place] MRI on 06-30-18 showed a 3cm by 3cm right frontal lobe lesion with a hemorrhagic component seen on DHAVAL stating, "hemorrhagic lesion involving the right frontal cortex and subcortical white matter. Differential considerations include neoplam or less likley transformation of an infarction. No distant lesions identified." He was found to have leukocytosis which was thought to be from seizure activity and remained afebrile. He had significant hyponatremia, acute on chronic CKD and elevated blood sugars managed with insulin. He was evaluated by neurosurgery and had a resection of his right frontal mass on 07/04/18 after which he was maintained on a Decadron taper and continued on Dilantin for seizure prophylaxis. He complained of bilateral knee pain whic improved with Allopurinol and the initiation of Decadron taper. He was evaluated by therapy and noted to have significant impairment in his ADLs and gait, and was deemed medically appropriate for discharge to on 07-09-18 with pathology pending from his recent tumor resection. Upon arrival he reported sternal pain and his reports she had performed CPR on his prior to his admission and that he has had this pain ever since. REVIEW OF SYSTEMS: The following is a completed review of systems and has been reviewed. Review of systems otherwise unremarkable. PAIN: Patient self reports bilateral chronic knee pain EYES: Negative for recent vision changes EARS, NOSE, & THROAT: +dysphagia, denies, rhinorrhea CARDIOVASCULAR: +sternal pain, otherwise no palpitations PULMONARY: Negative. Denies shortness of breath GASTROINTESTINAL: no diarrhea or constipation GENITOURINARY: Negative for dysuria or hematuria MUSCULOSKELETAL: bilateral knee OA vs gout NEUROLOGICAL: s/p oght frontal lobe resection , seizures HEMATOLOGICAL: Negative SKIN: sacral ulcer PSYCHIATRIC: Unremarkable All other review of systems found to be negative. PAST MEDICAL HISTORY: HTN and DM, left carotid artery stenosis s/p stenting, gout, CAD, ENEDINA, CKD3, recent GIB PAST SURGICAL HISTORY: right frontal craniotomy ALLERGIES: Please see below. MEDICATIONS: Please see below. 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 GENERAL: Pleasant and cooperative. No acute distress. HEENT: PERRL. Extraocular movements intact. Clear conjunctiva, left facial droop (eyebrow sparing) CARDIOVASCULAR: Regular rate and rhythm. No murmurs, rubs, or gallops +TTP sternal palpation LUNGS: Clear to auscultation bilaterally. No wheezes. No rhonchi ABDOMEN: Soft, nontender, nondistended. Positive bowel sounds. Normal active bowel sound NEUROLOGICAL: Alert and oriented times to self and place, not time Cranial nerves II through XII grossly intact. Sensation grossly intact able to follow 2-step commands, however unable to perform Luria, +Apraxia EXTREMITIES:5\\5 strength bilateral upper extremities. >3/5 bilateral hip flexors and knee extensors, 5/5 bilateral ankle DF and EHL Bilateral knees warm to touch with effusion SKIN: sacral ulcer, right frontal craniotonomy incision c/d/i IMAGING: Imaging documentation personally reviewed by record. FUNCTIONAL STATUS: Premorbid: Independent with all activities of daily life as well as mobility On Admission: Mod-Max assist for functional transfers, ambulating Min-Mod Assist with RW, Min-Mod for bed mobility and toileting GOALS: Mod-I fo ambulation with RW, stair ngotation, grooming, upper and lower body dressing supervision for bathing, advance diet, medical optimizarion, family training, assess for DME. ASSESSMENT:68-year-old M with past medical history of ENEDINA, HTN, CAD who presents status post right frontal mass resection with seizures. PLAN: 1. rehab: PTOT, SHOW HORSE DRIVER advance diet, assess for DME 2. Neuro:s/p right frontal mass resection, pathology results pending, Dilantin for seizure ppx, with significant apraxia -Decadron taper 3. Cardio: pmh HTn and HLD, continue home meds- medicine consulted 4. Resp: Enedina non-compliant with CPAP, will provide nocturnal 02 5. Endo: pmh DM continue home meds and adjust prn 6. Rheum: pmh gout, continue Uloric 7. DVY ppx: continue heparin 8. GI ppx: omeprazole 9. : f/u admission UA and Ucx monitor PVRs 10. Dispo: TBD POST ADMISSION PHYSICIAN EVALUATION: Medical and functional status: Description of medical status, medical assessment: As above. Rehabilitation diagnosis and current and prior cold morbid medical conditions as above. Risk of complications and plans to mitigate them as above. Description of functional status current status is as above. Prior status as above. Status compared to preadmission: There are no clinically significant differences between the patient's current status and the information described on the p readmission screening document. Treatment plan anticipated: Treatment plan is as described above. Required disciplines including physical therapy, occupational therapy, others as noted above Intensity of services: 3 hours a day, 6 days a week. Special considerations: There are no specific special or safety considerations t hat would likely preclude immediate implementation of an intensive rehabilitation program or subsequently influence the plan of care ATTESTATION: Considering all the information above, it is my best judgment that this patient requires intensive rehabilitation therapy as described above and an inpatient hospital environment due to the complexity of nursing, medical, and rehabilitation needs required by the patient. Furthermore, this patient can reasonably be expected to participate in an benefit from an inpatient rehabilitation stay with an interdisciplinary team approach to the delivery of rehabilitation care under the direction and supervision of rehabilitation physician. PROGNOSIS: Excellent ESTIMATED LENGTH OF STAY:14-18 days. PROJECTED DISCHARGE DESTINATION: Home with family support and any durable medical equipment required to increase functional safety and mobility TIME SPENT COUNSELING AND COORDINATING INITIAL CARE: Greater than 70 minutes. Vital Signs Vital Sign - Last 24 Hours 07/09/18 07/09/18 07/09/18 07/10/18 20:00 22:58 23:37 06:00 Temp 97.6 97.0 Pulse 68 69 73 77 Resp 17 17 B/P (MAP) 162/75 (104) 152/71 139/65 164/80 (108) Pulse Ox 98 97 O2 Delivery Room Air Room Air 07/10/18 07/10/18 07/10/18 07/10/18 08:17 09:31 09:31 14:00 Temp 97.5 Pulse 76 75 75 70 Resp 16 18 B/P (MAP) 138/65 138/65 150/60 (90) Pulse Ox 95 O2 Delivery Room Air Laboratory Data CBC/BMP Laboratory Tests 07/10/18 06:36 Red Blood Count 3.31 L, Mean Corpuscular Volume 85.8, Mean Corpuscular Hemoglobin 27.8, Mean Corpuscular Hemoglobin Concent 32.4, Red Cell Distribution Width 15.9 H, Neutrophils (%) (Auto) 77.9 H, Lymphocytes (%) (Auto) 12.4 L, Monocytes (%) (Auto) 6.0 H, Eosinophils (%) (Auto) 1.7, Basophils (%) (Auto) 0.4, Neutrophils # (Auto) 8.4 H, Lymphocytes # (Auto) 1.3 L, Monocytes # (Auto) 0.7, Eosinophils # (Auto) 0.2, Basophils # (Auto) 0.0, Calcium Level 7.8 L, Aspartate Amino Transf (AST/SGOT) 12, Alanine Aminotransferase (ALT/SGPT) 15, A lkaline Phosphatase 112, Total Bilirubin 0.2, Total Protein 5.8 L, Albumin 2.0 L 07/10/18 14:51 Calcium Level 7.8 L Labs 24H Laboratory Tests 2 07/09/18 22:51: Bedside Glucose (Misc Panel) 152H 07/10/18 06:36: Immature Granulocyte % (Auto) 1.6, White Blood Count 10.8H, Red Blood Count 3.31L, Hemoglobin 9.2L, Hematocrit 28.4L, Mean Corpuscular Volume 85.8, Mean Corpuscular Hemoglobin 27.8, Mean Corpuscular Hemoglobin Concent 32.4, Red Cell Distribution Width 15.9H, Platelet Count 123L, Neutrophils (%) (Auto) 77.9H, Lymphocytes (%) (Auto) 12.4L, Monocytes (%) (Auto) 6.0H, Eosinophils (%) (Auto) 1.7, Basophils (%) (Auto) 0.4, Neutrophils # (Auto) 8.4H, Lymphocytes # (Auto) 1.3L, Monocytes # (Auto) 0.7, Eosinophils # (Auto) 0.2, Basophils # (Auto) 0.0, Nucleated Red Blood Cells % (auto) 0.0, Anion Gap 11, Glomerular Filtration Rate 36.9L, Blood Urea Nitrogen 62H, Creatinine 1.94H, Sodium Level 141, Potassium Level 2.7*L, Chloride Level 105, Carbon Dioxide Level 25, Calcium Level 7.8L, Aspartate Amino Transf (AST/SGOT) 12, Alanine Aminotransferase (ALT/SGPT) 15, Alkaline Phosphatase 112, Total Bilirubin 0.2, Total Protein 5.8L, Albumin 2.0L, Albumin/Globulin Ratio 0.53L, Thyroid Stimulating Hormone (TSH) 2.150, Free Thyroxine 1.20, Phenytoin (Dilantin) Level 9.1L 07/10/18 07:15: Bedside Glucose (Misc Panel) 102 07/10/18 11:34: Bedside Glucose (Misc Panel) 164H 07/10/18 14:51: Anion Gap 10, Glomerular Filtration Rate 38.8L, Blood Urea Nitrogen 62H, Creatinine 1.86H, Sodium Level 139, Potassium Level 3.2L, Chloride Level 106, Carbon Dioxide Level 23, Calcium Level 7.8L 07/10/18 16:52: Bedside Glucose (Misc Panel) 138H FSBS Laboratory Tests Test 07/09/18 22:51 07/10/18 07:15 07/10/18 11:34 07/10/18 16:52 Range/Units Bedside Glucose (Misc Panel) 152 102 164 138 80-115 MG/DL Microbiology Microbiology 07/09/18 Urine Culture, Received Pending Home Medications Scheduled (Heparin Sodium) 5,000 Unit/Ml Inj, 5,000 UNIT SQ TID, (Reported) Acetaminophen (Acetaminophen Extra Stren) 500 Mg Tab, 1,000 MG PO Q8H, (Reported) Amlodipine Besylate (Amlodipine Besylate) 10 Mg Tab, 10 MG PO DAILY, (Reported) Aspirin (Aspirin 81) 81 Mg Tab, 81 MG PO DAILY, (Reported) Calcitriol (Rocaltrol) 0.25 Mcg Cap, 0.25 MCG PO DAILY, (Reported) Carvedilol (Carvedilol) 25 Mg Tab, 25 MG PO BID, (Reported) Dexamethasone (Dexamethasone) 4 Mg Tab, 4 MG PO BID, (Reported) Febuxostat (Uloric) 40 Mg Tab, 120 MG PO DAILY, (Reported) TAKE WITH 80MG TABLET. Febuxostat (Uloric) 80 Mg Tab, 120 MG PO DAILY, (Reported) TAKE WITH 40MG TABLET. Gemfibrozil (Gemfibrozil) 600 Mg Tab, 600 MG PO BID, (Reported) Insulin Glargine (Lantus Solostar) 100 Unit/Ml Inj, 25 UNITS SC QHS, (Reported) Insulin Human Lispro (Humalog) 1 Units/0.01 Ml Inj, 1 UNITS SC TID, (Reported) SLIDING SCALE, GIVE WITH MEALS Lidocaine (Lidoderm) 5 % Dis, 1 PATCH TD DAILY, (Reported) REMOVED 0550 07/09/2018 Magnesium Chloride (Mag64) 64 Mg Tabcr, 64 MG PO BID, (Reported) Omeprazole (Omeprazole) 40 Mg Cap, 40 MG PO QHS, (Reported) Phenytoin (Phenytoin) 50 Mg Chw, 125 MG PO Q8H, (Reported) Senna (Senokot) 8.6 Mg Tab, 2 TAB PO QHS, (Reported) Tamsulosin Hydrochloride (Flomax) 0.4 Mg Cap, 0.4 MG PO QHS, (Reported) Torsemide (Torsemide) 100 Mg Tab, 50 MG PO BID, (Reported) TAKES AT 0830 AND 1600 Scheduled PRN Albuterol/Ipratropium (Ipratropium [place]/Albut 0.5-2.5 (3) mg/3Ml) 1 Lillian Lillian, 1 LILLIAN INH Q6H PRN for WHEEZING, (Reported) Allergies Coded Allergies: No Known Allergies (Verified , 03/30/18) ESTRELLITA STANTON MD Jul 10, 2018 19:58
[2018-07-10 20:00] VITALS: BP 170/77
[2018-07-10] MEDS: **NOTE PATIENT COMMENT** MISC XX SCH (21:00)
[2018-07-10] MEDS: TAMSULOSIN 0.4 MG CAP PO SCH (23:10)
[2018-07-10] MEDS: OMEPRAZOLE 20 MG CAP PO SCH (23:12)
[2018-07-10] MEDS: LEVEMIR (INSULIN DETEMIR) 1 UNITS/0.01ML SC SCH (23:14)
[2018-07-11] MEDS ORDERED: metroNIDAZOLE (FLAGYL) 500 MG TAB PO SCH (04:00)
[2018-07-11] MEDS: PHENYTOIN 50 MG CHEW TABLET PO SCH ×3 (05:01→22:26)
[2018-07-11] MEDS: HEPARIN SOD (PORCINE) 5000 UNITS/ML VIAL SQ SCH ×3 (05:01→22:26)
[2018-07-11 06:00] VITALS: BP 134/62
[2018-07-11] MEDS: IPRATROPIUM 0.5MG/ALBUTEROL 2.5MG INH SOL UD 3ML (DUONEB)(J7620) NEB SCH ×2 (07:26→20:00)
[2018-07-11] MEDS: HumaLOG INSULIN (NovoLOG) PER UNIT SC SCH ×3 (07:30→17:31)
[2018-07-11] MEDS ORDERED: POTASSIUM CHLORIDE 10 MEQ SR TABLET PO ONE (07:30)
[2018-07-11] MEDS: SENOKOT S TAB PO SCH ×2 (09:00→22:23)
[2018-07-11] MEDS: LACTOBACILLUS ACIDOPHILUS CAP (BACID) PO SCH ×2 (09:31→17:28)
[2018-07-11] MEDS: FEBUXOSTAT 40 MG TABLET (ULORIC) PO SCH (09:32)
[2018-07-11] MEDS: CALCITRIOL 0.25 MCG CAP (S0169) PO SCH (09:32)
[2018-07-11] MEDS: ACETAMINOPHEN 500 MG TAB PO SCH ×3 (09:33→22:22)
[2018-07-11] MEDS: GEMFIBROZIL 600 MG TAB PO SCH ×2 (09:33→22:26)
[2018-07-11] MEDS: CARVedilol 12.5 MG TAB PO SCH ×2 (09:33→22:24)
[2018-07-11] MEDS: guaiFENesin 200 MG TAB PO SCH ×3 (09:33→22:21)
[2018-07-11] MEDS: ASPIRIN 81 MG ENTERIC TAB PO SCH (09:34)
[2018-07-11] MEDS: amLODIPine 10 MG TAB PO SCH (09:34)
[2018-07-11] MEDS: LIDOCAINE 5% (LIDODERM) PATCH TD SCH (09:36)
[2018-07-11] MEDS: VANCOMYCIN ORAL SOL 250MG/5ML ORAL SYRINGE PO SCH ×3 (09:47→17:29)
[2018-07-11] MEDS: DIAPER RELIEF PASTE (DESITIN) 60GM TOP SCH ×2 (09:48→22:27)
--- NOTE | 2018-07-11 10:15 | IPN ---
DATE: 07/10/2018 SUBJECTIVE: The patient is seen and examined in the afternoon today. The patient complained about persistent diarrhea. According to him, he has been having diarrhea for a week. Stool was loose appearing. He denied any fever or chills. OBJECTIVE: Vital Signs: Temperature 97, pulse 77, respiratory rate 17, blood pressure 164/80, pulse oximetry 97% in room air. General: No signs of acute distress. The patient is alert and awake. HEENT: Normocephalic, atraumatic. Extraocular movements intact. Cardiovascular: Positive S1, S2. Regular rate. Lungs: Clear to auscultation bilaterally. Abdomen: Soft. Nontender. Nondistended. Extremities: No edema. LABORATORY DATA: WBC 10.8, hemoglobin 9.3, hematocrit 28.4, platelet count 133. Sodium 141, potassium 2.7, chloride 105, carbon dioxide 25, BUN 61, creatinine 1.94, GFR 36.9, fasting glucose 94, calcium 7.8, total bilirubin 0.2, AST 12, ALT 15, alkaline phosphatase 112, total protein 5.9, TSH 3.15, free T4 1.2. ASSESSMENT AND PLAN: 1. Frontal cranial mass status post resection at [facility] in [place] on 07/05/2018. The patient is currently in [facility] for acute rehabilitation. Continue on Decadron taper. Continue on Dilantin. Seizure precautions. 2. Diarrhea. Etiology not known at this moment. Will follow with a GI panel. 3. Hypokalemia. Suspect GI loss. Will supplement accordingly. Will continue to follow the numbers. 4. Chronic kidney disease. Nephrology is assisting on the case. 5. Gout. On Uloric. 6. Hypertension. On Norvasc, carvedilol. 7. Coronary artery disease. On aspirin. 8. Carotid stenosis, status post endarterectomy or stenting. 9. Congestive heart failure. No sign of fluid overload. Diuretic is on hold. 10. Diabetes. On Levemir and sliding scale. 11. Benign prostatic hypertrophy (BPH). On Flomax. 12. Deep vein thrombosis (DVT) prophylaxis. On heparin. MTDD
[2018-07-11 15:48] LABS: HEMATOCRIT 31.7 % (42.0-52.0); HEMOGLOBIN 10.1 g/dl (13.5-17.5); MEAN CORPUSCULAR HEMOGLOBIN 27.1 pg (27.0-33.0); MEAN CORPUSCULAR HGB CONC 31.9 g/dl (32.0-36.5); PLATELET COUNT, AUTOMATED 114 10^3/uL (150-450); RED BLOOD COUNT 3.73 10^6/uL (4.30-6.10)
[2018-07-11 16:00] VITALS: BP 128/64
[2018-07-11 16:01] LABS: CALCIUM LEVEL 7.9 MG/DL (8.8-10.2); CREATININE FOR GFR 1.71 MG/DL (0.70-1.30); GLOMERULAR FILTRATION RATE 42.7 (>49)
[2018-07-11 20:00] VITALS: BP 140/82
[2018-07-11] MEDS: LEVEMIR (INSULIN DETEMIR) 1 UNITS/0.01ML SC SCH (21:00)
[2018-07-11] MEDS: TAMSULOSIN 0.4 MG CAP PO SCH (22:24)
[2018-07-11] MEDS: OMEPRAZOLE 20 MG CAP PO SCH (22:26)
[2018-07-11] MEDS: **NOTE PATIENT COMMENT** MISC XX SCH (22:26)
[2018-07-12] MEDS: VANCOMYCIN ORAL SOL 250MG/5ML ORAL SYRINGE PO SCH ×5 (00:11→23:24)
[2018-07-12] MEDS: PHENYTOIN 50 MG CHEW TABLET PO SCH ×3 (05:49→22:01)
[2018-07-12] MEDS: HEPARIN SOD (PORCINE) 5000 UNITS/ML VIAL SQ SCH ×3 (05:49→22:02)
[2018-07-12 06:00] VITALS: BP 132/84
[2018-07-12] MEDS: IPRATROPIUM 0.5MG/ALBUTEROL 2.5MG INH SOL UD 3ML (DUONEB)(J7620) NEB SCH ×2 (08:00→20:00)
[2018-07-12 08:12] LABS: HEMATOCRIT 27.8 % (42.0-52.0); MEAN CORPUSCULAR HEMOGLOBIN 27.4 pg (27.0-33.0); MEAN CORPUSCULAR HGB CONC 32.4 g/dl (32.0-36.5); MEAN CORPUSCULAR VOLUME 84.8 fl (80.0-96.0); PLATELET COUNT, AUTOMATED 108 10^3/uL (150-450); RED BLOOD COUNT 3.28 10^6/uL (4.30-6.10); WHITE BLOOD COUNT 8.9 10^3/uL (4.0-10.0)
[2018-07-12] MEDS: HumaLOG INSULIN (NovoLOG) PER UNIT SC SCH ×3 (08:27→18:00)
[2018-07-12] MEDS: guaiFENesin 200 MG TAB PO SCH ×3 (08:27→22:01)
[2018-07-12] MEDS: FEBUXOSTAT 40 MG TABLET (ULORIC) PO SCH (08:28)
[2018-07-12] MEDS: CARVedilol 12.5 MG TAB PO SCH ×2 (08:28→22:01)
[2018-07-12] MEDS: LACTOBACILLUS ACIDOPHILUS CAP (BACID) PO SCH ×2 (08:28→17:59)
[2018-07-12] MEDS: SENOKOT S TAB PO SCH ×2 (08:29→08:38)
[2018-07-12] MEDS: ASPIRIN 81 MG ENTERIC TAB PO SCH (08:29)
[2018-07-12] MEDS: amLODIPine 10 MG TAB PO SCH (08:29)
[2018-07-12] MEDS: ACETAMINOPHEN 500 MG TAB PO SCH ×3 (08:29→22:02)
[2018-07-12] MEDS: CALCITRIOL 0.25 MCG CAP (S0169) PO SCH (08:29)
[2018-07-12] MEDS: LIDOCAINE 5% (LIDODERM) PATCH TD SCH (08:30)
[2018-07-12] MEDS: GEMFIBROZIL 600 MG TAB PO SCH ×2 (08:30→22:03)
[2018-07-12] MEDS: DIAPER RELIEF PASTE (DESITIN) 60GM TOP SCH ×2 (08:35→22:04)
[2018-07-12 08:44] LABS: CALCIUM LEVEL 7.6 MG/DL (8.8-10.2); CREATININE FOR GFR 1.45 MG/DL (0.70-1.30); GLOMERULAR FILTRATION RATE 51.7 (>49); MAGNESIUM LEVEL 1.8 MG/DL (1.8-2.4); POTASSIUM SERUM 3.6 MEQ/L (3.5-5.1)
--- NOTE | 2018-07-12 10:15 | NUR ---
Pt w/ moderate cognitive impairment. Deficits in memory, attention, and executive function. 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 Addendum: 07/12/18 at 1016 by CHEY CRUZ [facility] SP Amended: Links added.
[2018-07-12] MEDS ORDERED: NS 1,000 ML IV ONE (11:15)
[2018-07-12] MEDS: FIORICET TAB PO PRN (12:58)
[2018-07-12] MEDS: POTASSIUM CHLORIDE 10 MEQ SR TABLET PO SCH (12:59)
[2018-07-12 14:00] VITALS: BP 128/82
--- NOTE | 2018-07-12 14:42 | IPNPDOC ---
Date Seen The patient was seen on 07/12/18. Progress Note HPI: 68M pnh HTN and DM, left carotid artery stenosis s/p stenting, gout, CAD, ENEDINA, CKD3, recent GIB who initially presented to [facility] on 06/29/18 with reported seizures, arrived with a Arnav Coma Scale of 3, was given loading dose of Dilantin and intubated. CTH showed a right frontal mass so he was transferred to [facility] in [place], [place] for further work-up. At [place] MRI on 06-30-18 showed a 3cm by 3cm right frontal lobe lesion with a hemorrhagic component, possible neoplam or less likley transformation of an infarction. He was found to have leukocytosis which was thought to be from seizure activity and remained afebrile. He had significant hyponatremia, acute on chronic CKD and elevated blood sugars managed with insulin. He was evaluated by neurosurgery and had a resection of his right frontal mass on 07/04/18 after which he was maintained on a Decadron taper and continued on Dilantin for seizure prophylaxis. He was evaluated by therapy and noted to have significant impairment in his ADLs and gait, and was deemed medically appropriate for transfer to [facility] ARU on 07-09-18, as per Dr Young, with pathology pending from his recent tumor resection. Pt is OOB to chair. Pt states no further diarrhea. States appetite decreased. Denies any fevers, chills, weakness, fatigue, STEPHENS, CP, SOB, cough, palpitations, abdominal pain, N/V, bladder habits. PE: GEN: 68yoM, appears stated age. Alert and oriented x 3. HEENT: Normocephalic, healing craniotomy scar. Pupils are equal, round, and reactive to light. Sclera are nonicteric. Conjunctiva without injection. No facial asymmetry. Moist mucous membranes. CHEST: Regular rate and rhythm, +S1, +S2 LUNGS: Clear to auscultation bilaterally. No wheezes, rales, or rhonchi. Breathing appears symmetric and easy. ABD: Round, soft, non-tender, non-distended. +Bowel sounds throughout. No rebound or guarding. No costovertebral angle tenderness. EXT: Pulses 2+ bilaterally dorsalis pedis and radial. No lower extremity edema appreciated. SKIN: [place], dry, warm. Capillary refill <2sec. No rashes. NEURO: Alert and oriented x 3. No focal deficits appreciated. A&P: 1. Frontal cranial mass status post resection at [facility] in [place] on 07/05/2018. Mgmt as per ARU. PT/OT/ST as per ARU Pain control as per ARU DVT prophylaxis as per ARU, SQ Heparin. F/U with Neurosurgery. Continue on Decadron taper. Continue on Dilantin seizure prophylaxis. Seizure precautions. 2. C diff. PO Vanco D2 Bacid BID. HOLD Bowel care. HOLD PPI. IVF x 1 liter today as per Attending. 3. Hypokalemia. po supplement. BMP in AM. 4. Chronic kidney disease3. Nephrology following. Diuretic on hold. 5. Gout. On Uloric. 6. Hypertension. On Norvasc, carvedilol. 7. Coronary artery disease. On aspirin. 8. Carotid stenosis, status post endarterectomy. 9. Congestive heart failure. No sign of fluid overload. Diuretic is on hold. 10. Diabetes. On Levemir and sliding scale. 11. Benign prostatic hypertrophy (BPH). On Flomax. 12. GI prophylaxis. HOLD PPI. Add pepcid. VS, I&O, 24H, [facility] Vital Signs/I&O Vital Signs Date Time Temp Pulse Resp B/P (MAP) Pulse Ox O2 Delivery O2 Flow Rate FiO2 07/12/18 13:53 18 07/12/18 08:29 82 132/84 07/12/18 06:00 97.4 100 Room Air I&O- Last 24 Hours up to 6 AM 07/12/18 06:00 Intake Total 2355 ml Output Total 1425 ml Balance 930 ml Laboratory Data 24H LABS Laboratory Tests 2 07/11/18 15:12: Nucleated Red Blood Cells % (auto) 0.0, Anion Gap 13, Glomerular Filtration Rate 42.7L, Blood Urea Nitrogen 52H, Creatinine 1.71H, Sodium Level 142, Potassium Level 4.0#, Chloride Level 108H, Carbon Dioxide Level 21, Calcium Level 7.9L 07/11/18 17:06: Bedside Glucose (Misc Panel) 182H 07/11/18 21:49: Bedside Glucose (Misc Panel) 76L 07/12/18 06:16: Bedside Glucose (Misc Panel) 195H 07/12/18 08:00: Nucleated Red Blood Cells % (auto) 0.0, Anion Gap 9, Glomerular Filtration Rate 51.7, Blood Urea Nitrogen 45H, Creatinine 1.45H, Sodium Level 140, Potassium Level 3.6, Chloride Level 110H, Carbon Dioxide Level 21, Calcium Level 7.6L, Magnesium Level 1.8 07/12/18 11:54: Bedside Glucose (Misc Panel) 152H CBC/BMP Laboratory Tests 07/11/18 15:12 Red Blood Count 3.73 L, Mean Corpuscular Volume 85.0, Mean Corpuscular Hemoglobin 27.1, Mean Corpuscular Hemoglobin Concent 31.9 L, Red Cell Distribution Width 16.7 H, Calcium Level 7.9 L 07/12/18 08:00 Red Blood Count 3.28 L, Mean Corpuscular Volume 84.8, Mean Corpuscular Hemoglobin 27.4, Mean Corpuscular Hemoglobin Concent 32.4, Red Cell Distribution Width 16.6 H, Calcium Level 7.6 L Microbiology Microbiology 07/10/18 Gastrointestinal Tract Panel (PCR) - Final, Complete Clostridium Difficile A/B 07/09/18 Urine Culture - Final, Complete Saadia Campbell Jul 12, 2018 14:42
[2018-07-12] MEDS: FAMOTIDINE 20 MG TAB PO SCH ×2 (16:22→22:02)
--- NOTE | 2018-07-12 19:01 | IPNPDOC ---
Text Note Date of Service The patient was seen on 07/12/18. NOTE Subjective: Patient was examined at bedside. Overnight patient had several bouts of diarrhea. He stated this complicated his sleep. He was afebrile overnight.Denies chest pain, denies nausea, denied vomiting. Denies shortness of breath, or difficulty breathing. Doing well with PT he states. States his appetite is poor. Objective VITAL SIGNS: See below HEAD AND NECK EXAM: The patient has a large incision with wilda in the right side of the scalp. Oral mucosa is moist, neck is supple, no thyromegaly CARDIOVASCULAR: Regular rate, regular rhythm, S1, S2 present, no murmurs RESPIRATORY: Chest is clear to auscultation bilaterally. Bilateral equal air entry. No rales or rhonchi. ABDOMEN: Soft, bowel sounds present, no organomegaly : no suprapubic fullness appreciated EXT: no edema LABORATORY REVIEW: Reviewed, see below PLAN: 1. Chronic kidney disease stage IV at baseline, presently his renal function is better than usual baseline. His diuretics are held due to diarrhea. His volume status is presently acceptable and he is saturating well on room air. Volume status will be reassessed daily and diuretics with be resumed as indicated. 2. Urinary retention. Straight cath patient twice a day. His retention and PVR is improving. Continue flomax. 3. C. difficile: currently on by mouth vancomycin and bacid, due to diarrhea we'll hold patient's diuretic. 4. Hypokalemia. Resolved with oral replacement. Currently on 20 mEq of potassium daily 5. Chronic gout secondary to chronic kidney disease. Continue home medication 6. Hypertension with chronic kidney disease. Blood pressure is optimal. Continue current dose of amlodipine 10 mg daily. Coreg 12.5 mg by mouth twice a day. 7. Secondary hyperparathyroidism. Continue current dose of calcitriol 0.25 mcg by mouth daily. VS,Fishbone, I+O VS, Fishbone, I+O Laboratory Tests 07/12/18 08:00 Red Blood Count 3.28 L, Mean Corpuscular Volume 84.8, Mean Corpuscular Hemoglobin 27.4, Mean Corpuscular Hemoglobin Concent 32.4, Red Cell Distribution Width 16.6 H, Calcium Level 7.6 L Vital Signs Date Time Temp Pulse Resp B/P (MAP) Pulse Ox O2 Delivery O2 Flow Rate FiO2 07/12/18 14:00 98.9 80 20 128/82 (97) 99 07/12/18 06:00 Room Air I&O- Last 24 Hours up to 6 AM 07/12/18 06:00 Intake Total 2355 ml Output Total 1425 ml Balance 930 ml GME ATTESTATION GME ATTESTATION My faculty preceptor for this patient encounter was physically present during the encounter and was fully available. All aspects of the patient interview, examination, medical decision making process, and medical care plan development were reviewed and approved by the faculty preceptor. The faculty preceptor is aware and concurs with the plan as stated in the body of this note and will attest to such by his/her cosignature. LE WILLIAM DO Jul 12, 2018 19:01 LEIGH SPRING DO Jul 12, 2018 20:59
--- NOTE | 2018-07-12 19:33 | IPNPDOC ---
PM&R Progress Note DATE OF SERVICE: Jul 12, 2018 Seamless Tube Drawer Progress Note Subjective: Patient with diarrhea and decreased appetite, able to participate in therapy, however fatigued. REVIEW OF SYSTEMS: The following is a completed review of systems and has been reviewed. Review of systems otherwise unremarkable. PAIN: Patient self reports bilateral chronic knee pain EYES: Negative for recent vision changes EARS, NOSE, & THROAT: +dysphagia, denies, rhinorrhea CARDIOVASCULAR: +sternal pain, otherwise no palpitations PULMONARY: Negative. Denies shortness of breath GASTROINTESTINAL: no diarrhea or constipation GENITOURINARY: Negative for dysuria or hematuria MUSCULOSKELETAL: bilateral knee OA vs gout NEUROLOGICAL: s/p oght frontal lobe resection , seizures HEMATOLOGICAL: Negative SKIN: sacral ulcer PSYCHIATRIC: Unremarkable All other review of systems found to be negative. PHYSICAL EXAMINATION: VITAL SIGNS: Please see below. GENERAL: Pleasant and cooperative. No acute distress. HEENT: PERRL. Extraocular movements intact. Clear conjunctiva, left facial droop (eyebrow sparing) CARDIOVASCULAR: Regular rate and rhythm. No murmurs, rubs, or gallops +TTP sternal palpation LUNGS: Clear to auscultation bilaterally. No wheezes. No rhonchi ABDOMEN: Soft, nontender, nondistended. Positive bowel sounds. Normal active bowel sound NEUROLOGICAL: Alert and oriented times to self and place, not time Cranial nerves II through XII grossly intact. Sensation grossly intact able to follow 2-step commands, however unable to perform Luria, +Apraxia EXTREMITIES:5\5 strength bilateral upper extremities. >3/5 bilateral hip flexors and knee extensors, 5/5 bilateral ankle DF and EHL Bilateral knees warm to touch with effusion SKIN: sacral ulcer, right frontal craniotonomy incision c/d/i ASSESSMENT:68-year-old M with past medical history of ENEDINA, HTN, CAD who presents status post right frontal mass resection with seizures. PLAN: 1. 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 Neuro:s/p right frontal mass resection, pathology results pending, Dilantin for seizures 125q8h, however levels low at 9.1, will increase to 150 qh and recheck 07/19/18 -continue Decadron taper 3. Cardio: pmh HTn and HLD, continue home meds- medicine consulted 4. Resp: Enedina non-compliant with CPAP, will provide nocturnal 02 5. Endo: pmh DM continue home meds and adjust prn 6. Rheum: pmh gout, continue Uloric 7. DVY ppx: continue heparin 8. GI ppx: omeprazole, patient found to have +C diff , started Vancomycin, IVF for dehydration 9. : admission UA and Ucx negative monitor PVRs 10. Pain: patient with headaches, Tylenol and Fiorcet prn 10. Dispo: TBD Allergies Coded Allergies: No Known Allergies (Verified , 03/30/18) Vital Signs Vital Signs Date Time Temp Pulse Resp B/P (MAP) Pulse Ox O2 Delivery O2 Flow Rate FiO2 07/12/18 14:00 98.9 80 20 128/82 (97) 99 07/12/18 06:00 Room Air Laboratory Data CBC/BMP Laboratory Tests 07/12/18 08:00 Red Blood Count 3.28 L, Mean Corpuscular Volume 84.8, Mean Corpuscular Hemoglobin 27.4, Mean Corpuscular Hemoglobin Concent 32.4, Red Cell Distribution Width 16.6 H, Calcium Level 7.6 L Labs 24H Laboratory Tests 2 07/11/18 21:49: Bedside Glucose (Misc Panel) 76L 07/12/18 06:16: Bedside Glucose (Misc Panel) 195H 07/12/18 08:00: Nucleated Red Blood Cells % (auto) 0.0, Anion Gap 9, Glomerular Filtration Rate 51.7, Blood Urea Nitrogen 45H, Creatinine 1.45H, Sodium Level 140, Potassium Level 3.6, Chloride Level 110H, Carbon Dioxide Level 21, Calcium Level 7.6L, Magnesium Level 1.8 07/12/18 11:54: Bedside Glucose (Misc Panel) 152H 07/12/18 17:14: Bedside Glucose (Misc Panel) 186H Microbiology Microbiology 07/10/18 Gastrointestinal Tract Panel (PCR) - Final, Complete Clostridium Difficile A/B 07/09/18 Urine Culture - Final, Complete Current Medications Current Medications Current Medications Acetaminophen (Tylenol Tab) 650 mg DAILY PRN PO fever; Start 07/09/18 at 21:00 Acetaminophen (Tylenol Tab) 1,000 mg TID PO Last administered on 07/12/18at 15:04; Start 07/09/18 at 21:00 Acetaminophen/ Butalbital/ Caffeine (Fioricet) 1 ea Q6HP PRN PO HEADACHE Last administered on 07/12/18 12:58; Start 07/12/18 at 11:00 Albuterol/ Ipratropium (Duoneb (Ipr 0.5mg/Alb 2.5mg)) 3 ml RBID NEB Last administered on 07/11/18 07:26; Start 07/10/18 at 08:00 Amlodipine Besylate (Norvasc) 10 mg DAILY PO Last administered on 07/12/18 08:29; Start 07/10/18 at 09:00 Aspirin (Ecotrin) 81 mg DAILY PO Last administered on 07/12/18 08:29; Start 07/10/18 at 09:00 Bisacodyl (Dulcolax Suppository) 10 mg DAILYPRN PRN [place] CONSTIPATION; Start 07/09/18 at 21:15 Calcitriol (Rocaltrol) 0.25 mcg DAILY PO Last administered on 07/12/18 08:29; Start 07/10/18 at 09:00 Carvedilol (COReg) 12.5 mg BID PO Last administered on 07/12/18 08:28; Start 07/09/18 at 21:00 Cod Liver Oil/ Zinc Oxide (Desitin) apply to sacrum BID TOP Last administered on 07/12/18 08:35; Start 07/10/18 at 09:00 Dexamethasone (Decadron) 2 mg DAILY PO ; Start 07/18/18 at 09:00; Stop 07/23/18 at 08:59 Dexamethasone (Decadron) 2 mg Q12H PO ; Start 07/13/18 at 21:00; Stop 07/17/18 at 20:59 Dexamethasone (Decadron) 4 mg Q12H PO Last administered on 07/12/18 08:28; Start 07/09/18 at 21:00; Stop 07/13/18 at 20:59 Dextrose (Dextrose 50%) 25 ml ASDIRECTED PRN IV SEE LABEL COMMENTS; Start 07/09/18 at 21:00 Famotidine (Pepcid) 10 mg BID PO Last administered on 07/12/18 16:22; Start 07/12/18 at 15:00 Febuxostat (Uloric) 120 mg DAILY PO Last administered on 1/21/19at 08:28; Start 07/10/18 at 09:00 Gemfibrozil (Lopid) 600 mg BID PO Last administered on 07/12/18at 08:30; Start 07/09/18 at 21:00 Glucagon (Glucagon) 1 mg ASDIRECTED PRN SC SEE LABEL COMMENTS; Start 07/09/18 at 21:00 Glucose (Glucose) 16 GM ASDIRECTED PRN PO SEE LABEL COMMENTS; Start 07/09/18 at 21:00 Guaifenesin (Robitussin Tab) 400 mg TID PO Last administered on 07/12/18at 15:03; Start 07/10/18 at 09:00 Heparin Sodium (Porcine) (Heparin) 5,000 units Q8H SQ Last administered on 07/12/18at 13:31; Start 07/09/18 at 22:00 Home Med (Med Rec Complete!) ASDIRECTED XX ; Start 07/09/18 at 23:00; Stop 06/22 02/07 at 23:00; Status DC Insulin Detemir (Levemir Insulin) 20 units QHS SC Last administered on at 23:14; Start 07/09/18 at 21:00 Insulin Human Lispro (HumaLOG INSULIN) SEE PROTOCOL TABLE AC SC Last administered on 07/12/18at 18:00; Start 07/10/18 at 07:30 Lactobacillus Acidophilus (Bacid) 1 ea BIDWM PO Last administered on 07/12/18at 17:59; Start 07/11/18 at 08:00 Lidocaine (Lidoderm Patch) 1 patch DAILY TD Last administered on 07/12/18at 08:30; Start 07/10/18 at 09:00 Lorazepam (Ativan) 2 mg Q6H PRN IV SEIZURES; Start 07/10/18 at 02:30 Magnesium Hydroxide (Milk Of Magnesia) 30 ml DAILYPRN PRN PO CONSTIPATION; Start 07/09/18 at 21:15 Metronidazole (Flagyl) 500 mg Q8H PO Last administered on 07/11/18at 05:01; Start 07/11/18 at 04:00; Stop 07/11/18 at 07:12; Status DC Non-Formulary Medication ( See Comment Field Below ) REMOVE LIDODERM PATCH DAILY@21 XX Last administered on 07/11/18at 22:26; Start 07/09/18 at 21:00 Omeprazole (PriLOSEC) 40 mg QHS PO Last administered on 07/11/18 22:26; Start 07/09/18 at 21:00; Stop 07/12/18 at 14:39; Status DC Ondansetron HCl (Zofran) 4 mg Q6HP PRN PO NAUSEA; Start 07/09/18 at 21:15 Phenytoin (Dilantin Chewable) 125 mg Q8H PO Last administered on 07/12/18at 05:49; Start 07/09/18 at 22:00; Stop 07/12/18 at 10:30; Status DC Phenytoin (Dilantin Chewable) 150 mg Q8H PO Last administered on 07/12/18at 13:30; Start 07/12/18 at 14:00 Potassium Chloride (Micro-K Extencaps) 20 meq DAILY PO Last administered on 07/12/18at 12:59; Start 07/12/18 at 09:00 Senna/Docusate Sodium (Senokot S) 1 tab BID PO Last administered on 07/11/18at 22:23; Start 07/10/18 at 09:00; Stop 07/12/18 at 14:39; Status DC Tamsulosin HCl (Flomax) 0.4 mg QHS PO Last administered on 07/11/18at 22:24; Start 07/09/18 at 21:00 Torsemide (Demadex) 50 mg BID@09,17 PO ; Start 07/10/18 at 09:00; Stop 07/10/18 at 09:24; Status DC Trazodone HCl (Desyrel) 25 mg QHSP PRN PO INSOMNIA; Start 07/09/18 at 21:00 Vancomycin HCl (First-Vancomycin 50(Firvanq)- 250mg/5ml) 125 mg Q6H PO Last administered on 07/12/18at 17:59; Start 07/11/18 at 06:00 Zinc Oxide (Boudreauxs Butt Paste) sacrum BID TOP ; Start 07/10/18 at 09:00; Stop 07/10/18 at 13:02; Status DC ESTRELLITA STANTON MD Jul 12, 2018 19:33
[2018-07-12 20:00] VITALS: BP 140/80
[2018-07-12] MEDS: LEVEMIR (INSULIN DETEMIR) 1 UNITS/0.01ML SC SCH (21:53)
[2018-07-12] MEDS: TAMSULOSIN 0.4 MG CAP PO SCH (22:02)
[2018-07-12] MEDS: **NOTE PATIENT COMMENT** MISC XX SCH (22:05)
[2018-07-13] MEDS: VANCOMYCIN ORAL SOL 250MG/5ML ORAL SYRINGE PO SCH ×4 (05:25→23:36)
[2018-07-13] MEDS: HEPARIN SOD (PORCINE) 5000 UNITS/ML VIAL SQ SCH ×3 (05:25→21:41)
[2018-07-13] MEDS: PHENYTOIN 50 MG CHEW TABLET PO SCH ×3 (05:26→21:40)
[2018-07-13 06:00] VITALS: BP 160/78
[2018-07-13 06:40] LABS: BASO % 0.5 % (0.0-1.0); EOS # 0.2 10^3/uL (0.0-0.50); EOS % 2.2 % (0.0-3.0); HEMATOCRIT 26.5 % (42.0-52.0); HEMOGLOBIN 8.5 g/dl (13.5-17.5); LYMPH # 1.3 10^3/uL (1.5-4.5); LYMPH % 14.3 % (24.0-44.0); MEAN CORPUSCULAR HEMOGLOBIN 27.6 pg (27.0-33.0); MEAN CORPUSCULAR HGB CONC 32.1 g/dl (32.0-36.5); MONO # 0.5 10^3/uL (0.0-0.8); MONO % 5.5 % (0.0-5.0); NEUTROPHILS # 6.5 10^3/uL (1.8-7.7); NEUTROPHILS % 73.3 % (36.0-66.0); PLATELET COUNT, AUTOMATED 121 10^3/uL (150-450); RED BLOOD COUNT 3.08 10^6/uL (4.30-6.10); WHITE BLOOD COUNT 8.8 10^3/uL (4.0-10.0)
[2018-07-13 07:01] LABS: CALCIUM LEVEL 7.7 MG/DL (8.8-10.2); CREATININE FOR GFR 1.47 MG/DL (0.70-1.30); GLOMERULAR FILTRATION RATE 50.9 (>49); POTASSIUM SERUM 3.4 MEQ/L (3.5-5.1)
[2018-07-13] MEDS: IPRATROPIUM 0.5MG/ALBUTEROL 2.5MG INH SOL UD 3ML (DUONEB)(J7620) NEB SCH ×2 (07:33→20:00)
[2018-07-13] MEDS: POTASSIUM CHLORIDE 10 MEQ SR TABLET PO SCH (08:33)
[2018-07-13] MEDS: CALCITRIOL 0.25 MCG CAP (S0169) PO SCH (08:33)
[2018-07-13] MEDS: FEBUXOSTAT 40 MG TABLET (ULORIC) PO SCH (08:33)
[2018-07-13] MEDS: ASPIRIN 81 MG ENTERIC TAB PO SCH (08:33)
[2018-07-13] MEDS: CARVedilol 12.5 MG TAB PO SCH ×2 (08:34→21:41)
[2018-07-13] MEDS: GEMFIBROZIL 600 MG TAB PO SCH ×2 (08:34→21:41)
[2018-07-13] MEDS: amLODIPine 10 MG TAB PO SCH (08:34)
[2018-07-13] MEDS: FAMOTIDINE 20 MG TAB PO SCH ×2 (08:34→21:39)
[2018-07-13] MEDS: ACETAMINOPHEN 500 MG TAB PO SCH ×3 (08:35→21:40)
[2018-07-13] MEDS: HumaLOG INSULIN (NovoLOG) PER UNIT SC SCH ×3 (08:35→17:16)
[2018-07-13] MEDS: LACTOBACILLUS ACIDOPHILUS CAP (BACID) PO SCH ×2 (08:35→17:15)
[2018-07-13] MEDS: guaiFENesin 200 MG TAB PO SCH ×3 (08:35→21:39)
[2018-07-13] MEDS: LIDOCAINE 5% (LIDODERM) PATCH TD SCH (08:36)
[2018-07-13] MEDS: DIAPER RELIEF PASTE (DESITIN) 60GM TOP SCH ×2 (08:39→21:42)
--- NOTE | 2018-07-13 11:18 | IPNPDOC ---
Date Seen The patient was seen on 07/13/18. Progress Note HPI: 68M pnh HTN and DM, left carotid artery stenosis s/p stenting, gout, CAD, ENEDINA, CKD3, recent GIB who initially presented to [facility] on 06/29/18 with reported seizures, arrived with a Arnav Coma Scale of 3, was given loading dose of Dilantin and intubated. CTH showed a right frontal mass so he was transferred to [facility] in [place], [place] for further work-up. At [place] MRI on 06-30-18 showed a 3cm by 3cm right frontal lobe lesion with a hemorrhagic component, possible neoplam or less likley transformation of an infarction. He was found to have leukocytosis which was thought to be from seizure activity and remained afebrile. He had significant hyponatremia, acute on chronic CKD and elevated blood sugars managed with insulin. He was evaluated by neurosurgery and had a resection of his right frontal mass on 07/04/18 after which he was maintained on a Decadron taper and continued on Dilantin for seizure prophylaxis. He was evaluated by therapy and noted to have significant impairment in his ADLs and gait, and was deemed medically appropriate for transfer to [facility] ARU on 07-09-18, as per Dr Young, with pathology pending from his recent tumor resection. Pt reports diarrhea is less frequent. Appetite is decreased but no N/V. Denies abdominal pain. Denies any fevers, chills, weakness, fatigue, STEPHENS, CP, SOB, cough, palpitations. PE: GEN: 68yoM, appears stated age. Alert and oriented x 3. HEENT: Normocephalic, healing craniotomy scar. Pupils are equal, round, and reactive to light. Sclera are nonicteric. Conjunctiva without injection. No facial asymmetry. Moist mucous membranes. CHEST: Regular rate and rhythm, +S1, +S2 LUNGS: Clear to auscultation bilaterally. No wheezes, rales, or rhonchi. ABD: Round, soft, non-tender, non-distended. +Bowel sounds throughout. EXT: No lower extremity edema appreciated. SKIN: [place], dry, warm. No rashes. A&P: 1. Frontal cranial mass status post resection at [facility] in [place] on 07/05/2018. Mgmt as per ARU. PT/OT/ST as per ARU Pain control as per ARU DVT prophylaxis as per ARU, SQ Heparin. Outpt F/U with Neurosurgery. Continue on Decadron taper. Continue on Dilantin seizure prophylaxis. Dilantin dose adjusted as per attending, Dilantin level 7.[address] Young plans to request Neurology Clt to further assist with anticonvulsant recommendations. Seizure precautions. 2. C diff. BM x 4 yesterday. Afebrile. WBC 8.8. PO Vanco D3 Bacid BID. HOLD Bowel care. HOLD PPI. IVF x 1 liter 07/12/18 as per Attending. 3. Hypokalemia. po supplement. Mag level 1.8 07/12/18, recheck in AM. BMP/Mag in AM. 4. Chronic kidney disease3. Nephrology following. Diuretic on hold. 5. Gout. On Uloric. 6. Hypertension. On Norvasc, carvedilol. 7. Coronary artery disease. ASA 8. Carotid stenosis, status post endarterectomy. 9. Congestive heart failure. No sign of fluid overload. Diuretic is on hold. 10. Diabetes. Levemir SSI 11. Benign prostatic hypertrophy (BPH). Flomax. 12. GI prophylaxis. HOLD PPI. Add pepcid. VS, I&O, 24H, Fishbone Vital Signs/I&O Vital Signs Date Time Temp Pulse Resp B/P (MAP) Pulse Ox O2 Delivery O2 Flow Rate FiO2 07/13/18 08:34 76 160/78 07/13/18 06:00 98.2 18 98 Room Air I&O- Last 24 Hours up to 6 AM 07/13/18 06:00 Intake Total 1580 ml Output Total 675 ml Balance 905 ml Laboratory Data 24H LABS Laboratory Tests 2 07/12/18 11:54: Bedside Glucose (Misc Panel) 152H 07/12/18 17:14: Bedside Glucose (Misc Panel) 186H 07/12/18 20:56: Bedside Glucose (Misc Panel) 85 07/13/18 06:11: Immature Granulocyte % (Auto) 4.2H, White Blood Count 8.8, Red Blood Count 3.08L, Hemoglobin 8.5L, Hematocrit 26.5L, Mean Corpuscular Volume 86.0, Mean Corpuscular Hemoglobin 27.6, Mean Corpuscular Hemoglobin Concent 32.1, Red Cell Distribution Width 17.0H, Platelet Count 121L, Neutrophils (%) (Auto) 73.3H, Lymphocytes (%) (Auto) 14.3L, Monocytes (%) (Auto) 5.5H, Eosinophils (%) (Auto) 2.2, Basophils (%) (Auto) 0.5, Neutrophils # (Auto) 6.5, Lymphocytes # (Auto) 1.3L, Monocytes # (Auto) 0.5, Eosinophils # (Auto) 0.2, Basophils # (Auto) 0.0, Nucleated Red Blood Cells % (auto) 0.0, Anion Gap 9, Glomerular Filtration Rate 50.9, Blood Urea Nitrogen 38H, Creatinine 1.47H, Sodium Level 141, Potassium Level 3.4L, Chloride Level 112H, Carbon Dioxide Level 20L, Calcium Level 7.7L, Phenytoin (Dilantin) Level 7.8L CBC/BMP Laboratory Tests 07/13/18 06:11 Red Blood Count 3.08 L, Mean Corpuscular Volume 86.0, Mean Corpuscular Hemoglobin 27.6, Mean Corpuscular Hemoglobin Concent 32.1, Red Cell Distribution Width 17.0 H, Neutrophils (%) (Auto) 73.3 H, Lymphocytes (%) (Auto) 14.3 L, Monocytes (%) (Auto) 5.5 H, Eosinophils (%) (Auto) 2.2, Basophils (%) (Auto) 0.5, Neutrophils # (Auto) 6.5, Lymphocytes # (Auto) 1.3 L, Monocytes # (Auto) 0.5, Eosinophils # (Auto) 0.2, Basophils # (Auto) 0.0, Calcium Level 7.7 L Microbiology Microbiology 07/10/18 Gastrointestinal Tract Panel (PCR) - Final, Complete Clostridium Difficile A/B 07/09/18 Urine Culture - Final, Complete Saadia Campbell Jul 13, 2018 11:18
[2018-07-13 11:26] VITALS: BP 120/60
[2018-07-13 14:00] VITALS: BP 132/60
--- NOTE | 2018-07-13 19:00 | IPNPDOC ---
PM&R Progress Note DATE OF SERVICE: Jul 13, 2018 Help Desk Manager Progress Note Subjective: Patient with urinary retention, refusing to be catheterized, fluctuating levels of participation in therapy. REVIEW OF SYSTEMS: The following is a completed review of systems and has been reviewed. Review of systems otherwise unremarkable. PAIN: Patient self reports bilateral chronic knee pain EYES: Negative for recent vision changes EARS, NOSE, & THROAT: dysphagia (resolved) denies, rhinorrhea CARDIOVASCULAR: +sternal pain, otherwise no palpitations PULMONARY: Negative. Denies shortness of breath GASTROINTESTINAL: no diarrhea or constipation GENITOURINARY: Negative for dysuria or hematuria, + retention MUSCULOSKELETAL: bilateral knee OA vs gout NEUROLOGICAL: s/p right frontal lobe resection , seizures HEMATOLOGICAL: Negative SKIN: sacral ulcer PSYCHIATRIC: Unremarkable All other review of systems found to be negative. PHYSICAL EXAMINATION: VITAL SIGNS: Please see below. GENERAL: Pleasant and cooperative. No acute distress. HEENT: PERRL. Extraocular movements intact. Clear conjunctiva, left facial droop (eyebrow sparing) CARDIOVASCULAR: Regular rate and rhythm. No murmurs, rubs, or gallops +TTP sternal palpation LUNGS: Clear to auscultation bilaterally. No wheezes. No rhonchi ABDOMEN: Soft, nontender, nondistended. Positive bowel sounds. Normal active bowel sound NEUROLOGICAL: Alert and oriented times to self and place, not time Cranial nerves II through XII grossly intact. Sensation grossly intact able to follow 2-step commands, however unable to perform Luria, +Apraxia EXTREMITIES:5\5 strength bilateral upper extremities. >3/5 bilateral hip flexors and knee extensors, 5/5 bilateral ankle DF and EHL Bilateral knees warm to touch with effusion SKIN: sacral ulcer, right frontal craniotonomy incision c/d/i ASSESSMENT:68-year-old M with past medical history of ENEDINA, HTN, CAD who presents status post right frontal mass resection with seizures. PLAN: 1. rehab: PTOT, DIRECTOR BIOLOGY advance diet, assess for DME- significant apraxia 2. Neuro:s/p right frontal mass resection, pathology results pending, Dilantin for seizures 125q8h, however levels low at 9.1, increased to 150 qh on 07/12/18 and recheck 07/19/18, will order neuro consult for possible transition to Keppra -continue Decadron taper 3. Cardio: pmh HTn and HLD, continue home meds- medicine consulted 4. Resp: Enedina non-compliant with CPAP, will provide nocturnal 02 5. Endo: pmh DM continue home meds and adjust prn 6. Rheum: pmh gout, continue Uloric 7. DVY ppx: continue heparin 8. GI ppx: omeprazole, patient found to have +C diff , continue Vancomycin, s/p IVF 9. : admission UA and Ucx negative monitor PVRs- renal consulted for retention and It Audit Manager, recs appreciated 10. Pain: patient with headaches, Tylenol and Fiorcet prn 10. Dispo: 08/02/18, progressing towards goals Allergies Coded Allergies: No Known Allergies (Verified , 03/30/18) Vital Signs Vital Signs Date Time Temp Pulse Resp B/P (MAP) Pulse Ox O2 Delivery O2 Flow Rate FiO2 07/13/18 14:00 97.5 75 18 132/60 (84) 98 Room Air Laboratory Data CBC/BMP Laboratory Tests 07/13/18 06:11 Red Blood Count 3.08 L, Mean Corpuscular Volume 86.0, Mean Corpuscular Hemoglobin 27.6, Mean Corpuscular Hemoglobin Concent 32.1, Red Cell Distribution Width 17.0 H, Neutrophils (%) (Auto) 73.3 H, Lymphocytes (%) (Auto) 14.3 L, Monocytes (%) (Auto) 5.5 H, Eosinophils (%) (Auto) 2.2, Basophils (%) (Auto) 0.5, Neutrophils # (Auto) 6.5, Lymphocytes # (Auto) 1.3 L, Monocytes # (Auto) 0.5, Eosinophils # (Auto) 0.2, Basophils # (Auto) 0.0, Calcium Level 7.7 L Labs 24H Laboratory Tests 2 07/12/18 20:56: Bedside Glucose (Misc Panel) 85 07/13/18 06:11: Immature Granulocyte % (Auto) 4.2H, White Blood Count 8.8, Red Blood Count 3 .08L, Hemoglobin 8.5L, Hematocrit 26.5L, Mean Corpuscular Volume 86.0, Mean Corpuscular Hemoglobin 27.6, Mean Corpuscular Hemoglobin Concent 32.1, Red Cell Distribution Width 17.0H, Platelet Count 121L, Neutrophils (%) (Auto) 73.3H, Lymphocytes (%) (Auto) 14.3L, Monocytes (%) (Auto) 5.5H, Eosinophils (%) (Auto) 2.2, Basophils (%) (Auto) 0.5, Neutrophils # (Auto) 6.5, Lymphocytes # (Auto) 1.3L, Monocytes # (Auto) 0.5, Eosinophils # (Auto) 0.2, Basophils # (Auto) 0.0, Nucleated Red Blood Cells % (auto) 0.0, Anion Gap 9, Glomerular Filtration Rate 50.9, Blood Urea Nitrogen 38H, Creatinine 1.47H, Sodium Level 141, Potassium Level 3.4L, Chloride Level 112H, Carbon Dioxide Level 20L, Calcium Level 7.7L, Phenytoin (Dilantin) Level 7.8L 07/13/18 11:27: Bedside Glucose (Misc Panel) 126H 07/13/18 16:48: Bedside Glucose (Misc Panel) 162H Microbiology Microbiology 07/10/18 Gastrointestinal Tract Panel (PCR) - Final, Complete Clostridium Difficile A/B 07/09/18 Urine Culture - Final, Complete Current Medications Current Medications Current Medications Acetaminophen (Tylenol Tab) 650 mg DAILY PRN PO fever; Start 07/09/18 at 21:00 Acetaminophen (Tylenol Tab) 1,000 mg TID PO Last administered on 07/13/18at 16:52; Start 07/09/18 at 21:00 Acetaminophen/ Butalbital/ Caffeine (Fioricet) 1 ea Q6HP PRN PO HEADACHE Last administered on 07/12/18at 12:58; Start 07/12/18 at 11:00 Albuterol/ Ipratropium (Duoneb (Ipr 0.5mg/Alb 2.5mg)) 3 ml RBID NEB Last ad ministered on 07/11/18at 07:26; Start 07/10/18 at 08:00 Amlodipine Besylate (Norvasc) 10 mg DAILY PO Last administered on 07/13/18at 08:34; Start 07/10/18 at 09:00 Aspirin (Ecotrin) 81 mg DAILY PO Last administered on 07/13/18at 08:33; Start 07/10/18 at 09:00 Bisacodyl (Dulcolax Suppository) 10 mg DAILYPRN PRN GA CONSTIPATION; Start 07/09/18 at 21:15 Calcitriol (Rocaltrol) 0.25 mcg DAILY PO Last administered on 07/13/18 08:33; Start 07/10/18 at 09:00 Carvedilol (COReg) 12.5 mg BID PO Last administered on 07/13/18 08:34; Start 07/09/18 at 21:00 Cod Liver Oil/ Zinc Oxide (Desitin) apply to sacrum BID TOP Last administered on 07/13/18at 08:39; Start 07/10/18 at 09:00 Dexamethasone (Decadron) 2 mg DAILY PO ; Start 07/18/18 at 09:00; Stop 07/23/18 at 08:59 Dexamethasone (Decadron) 2 mg Q12H PO ; Start 07/13/18 at 21:00; Stop 07/17/18 at 20:59 Dexamethasone (Decadron) 4 mg Q12H PO Last administered on 07/13/18at 08:35; Start 07/09/18 at 21:00; Stop 07/13/18 at 20:59 Dextrose (Dextrose 50%) 25 ml ASDIRECTED PRN IV SEE LABEL COMMENTS; Start 07/09/18 at 21:00 Famotidine (Pepcid) 10 mg BID PO Last administered on 07/13/18 08:34; Start 07/12/18 at 15:00 Febuxostat (Uloric) 120 mg DAILY PO Last administered on 07/13/18at 08:33; Start 07/10/18 at 09:00 Gemfibrozil (Lopid) 600 mg BID PO Last administered on 07/13/18 08:34; Start 07/09/18 at 21:00 Glucagon (Glucagon) 1 mg ASDIRECTED PRN SC SEE LABEL COMMENTS; Start 07/09/18 at 21:00 Glucose (Glucose) 16 GM ASDIRECTED PRN PO SEE LABEL COMMENTS; Start 07/09/18 at 21:00 Guaifenesin (Robitussin Tab) 400 mg TID PO Last administered on 07/13/18at 16:52; Start 07/10/18 at 09:00 Heparin Sodium (Porcine) (Heparin) 5,000 units Q8H SQ Last administered on 07/13/18at 13:41; Start 07/09/18 at 22:00 Home Med (Med Rec Complete!) ASDIRECTED XX ; Start 07/09/18 at 23:00; Stop 07/09/18 at 23:00; Status DC Insulin Detemir (Levemir Insulin) 20 units QHS SC Last administered on 07/10/18at 23:14; Start 07/09/18 at 21:00 Insulin Human Lispro (HumaLOG INSULIN) SEE PROTOCOL TABLE AC SC Last administered on 07/13/18at 12:14; Start 07/10/18 at 07:30 Lactobacillus Acidophilus (Bacid) 1 ea BIDWM PO Last administered on 07/13/18at 17:15; Start 07/11/18 at 08:00 Lidocaine (Lidoderm Patch) 1 patch DAILY TD Last administered on 07/13/18at 08:36; Start 07/10/18 at 09:00 Lorazepam (Ativan) 2 mg Q6H PRN IV SEIZURES; Start 07/10/18 at 02:30 Magnesium Hydroxide (Milk Of Magnesia) 30 ml DAILYPRN PRN PO CONSTIPATION; Start 07/09/18 at 21:15 Metronidazole (Flagyl) 500 mg Q8H PO Last administered on 07/11/18at 05:01; Start 07/11/18 at 04:00; Stop 07/11/18 at 07:12; Status DC Non-Formulary Medication ( See Comment Field Below ) REMOVE LIDODERM PATCH DAILY@21 XX Last administered on 07/12/18at 22:05; Start 07/09/18 at 21:00 Omeprazole (PriLOSEC) 40 mg QHS PO Last administered on 07/11/18at 22:26; Start 07/09/18 at 21:00; Stop 07/12/18 at 14:39; Status DC Ondansetron HCl (Zofran) 4 mg Q6HP PRN PO NAUSEA; Start 07/09/18 at 21:15 Phenytoin (Dilantin Chewable) 125 mg Q8H PO Last administered on 07/12/18at 05:49; Start 07/09/18 at 22:00; Stop 07/12/18 at 10:30; Status DC Phenytoin (Dilantin Chewable) 150 mg Q8H PO Last administered on 07/13/18at 13:41; Start 07/12/18 at 14:00 Potassium Chloride (Micro-K Extencaps) 20 meq DAILY PO Last administered on 07/13/18at 08:33; Start 07/12/18 at 09:00 Senna/Docusate Sodium (Senokot S) 1 tab BID PO Last administered on 07/11/18at 22:23; Start 07/10/18 at 09:00; Stop 07/12/18 at 14:39; Status DC Tamsulosin HCl (Flomax) 0.4 mg QHS PO Last administered on 07/12/18at 22:02; Start 07/09/18 at 21:00 Torsemide (Demadex) 50 mg BID@ PO ; Start 07/10/18 at 09:00; Stop 07/10/18 at 09:24; Status DC Trazodone HCl (Desyrel) 25 mg QHSP PRN PO INSOMNIA; Start 07/09/18 at 21:00 Vancomycin HCl (First-Vancomycin 50(Firvanq)- 250mg/5ml) 125 mg Q6H PO Last administered on 07/13/18at 17:15; Start 07/11/18 at 06:00 Zinc Oxide (Boudreauxs Butt Paste) sacrum BID TOP ; Start 07/10/18 at 09:00; S top 07/10/18 at 13:02; Status DC ESTRELLITA STANTON MD Jul 13, 2018 19:00
[2018-07-13 20:00] VITALS: BP 180/74
[2018-07-13] MEDS: **NOTE PATIENT COMMENT** MISC XX SCH (21:00)
[2018-07-13] MEDS: TAMSULOSIN 0.4 MG CAP PO SCH (21:41)
[2018-07-13] MEDS: LEVEMIR (INSULIN DETEMIR) 1 UNITS/0.01ML SC SCH (21:41)
--- NOTE | 2018-07-13 22:21 | IPN ---
DATE: 07/13/2018 SUBJECTIVE: Christopher is seen this morning sitting out of bed to the chair. He reports he had a tough night last night. He complains of recurrent episodes of watery diarrhea. Physical medicine and rehabilitation team gave him IV fluids overnight. He denies any shortness of breath with physical therapy/exercises. His oral intake is improving nicely. He is saturating well on room air. His urinary retention is also reportedly improving per the nursing staff. VITAL SIGNS: Temperature 97.5, pulse 75, respiratory rate 18, blood pressure 132/60, saturating 98 to 99% on room air. Intake yesterday was 1835. Urine output was 875. Weight on the bed scale today is not recorded. GENERAL: Patient is seen sitting out of bed to the chair, awake, alert and oriented, comfortable. No acute distress. Extraocular muscles are intact. Tongue is moist. Poor dentition. The jugular veins are not elevated while he is sitting upright. CARDIAC: S1, S2. Regular rate. No edema in the peripheries or in the dependent area. LUNGS: There are diminished breath sounds with some occasional rhonchi bilaterally. There is no accessory muscle use. No tachypnea. He is comfortable on room air. ABDOMEN: Soft and nontender. There are bowel sounds. EXTREMITIES: The lower extremities have no edema. NEUROLOGICAL: He is oriented and interactive. No focal deficit. SKIN: Normal temperature and turgor. LABS: Sodium 141, potassium 3.4, bicarbonate 20, BUN 38, creatinine 1.4. Hemoglobin 8.5. INPATIENT MEDICATIONS: Reviewed by myself. Noted he was started on Fioricet as needed headaches. Primary team also gave him IV fluid bolus overnight. His phenytoin dose was also adjusted per primary and he continues on oral vancomycin. Remainder of medications are unchanged from prior. PROBLEMS: 1. CKD stage 4 at baseline. Presently his renal function is better than his usual baseline and this is likely secondary to his diuretics being held. I do not think he needs any further IV fluids at present. He is tolerating oral intake well. If his diarrhea abates I plan to resume torsemide tomorrow, but at a lower dose than what he takes at home. 2. Urinary retention. Nursing staff reports that the patient is moving around better and going to the toilet now and having improved voids. I asked them to check a post void residual bladder scan today and if greater than 300 mL to continue straight catheterization twice daily. He continues on Flomax. 3. C. difficile colitis. Patient is still having watery diarrhea. He had four bowel movements yesterday. His white count is improving. He is tolerating oral intake well. I would hold off on further IV fluids. He continues on oral vancomycin. 4. Hypokalemia. Patient continues on oral potassium supplementation. 5. Hypertension. Blood pressures are acceptable at this time and no changes are being made. He continues on combination amlodipine and carvedilol. 6. Anemia. His hemoglobin has down trended from 10 to 8.5. I am going to check iron stores.
--- NOTE | 2018-07-13 22:44 | IPN ---
DATE: 07/11/2018 SUBJECTIVE: Patient is seen and examined this morning in the rehab unit, sitting out of bed to the chair. His is present at the bedside. He is having urinary retention. Postvoid residual was 800 mL. Patient was refusing Mendoza catheter or straight catheter. I spoke to him regarding his retention, and he eventually agreed for twice daily straight catheterization. He reports physical therapy is going well. Denies any shortness of breath or leg edema. His hypokalemia has improved. VITAL SIGNS: Temperature 97.8, pulse 70, respiratory rate 20, blood pressure 128/64, saturating 97% on room air. Intake yesterday was 980, urine output yesterday is not fully recorded because he had multiple incontinent voids. Weight on the bed scale today is 92.1 kg. General: The patient is seen sitting out of bed to the chair, awake, alert, oriented, and in no distress. Extraocular movements are intact. There is an approximated wound on his front scalp with wilda. Tongue is moist. Neck is supple. Jugular veins are not elevated. Cardiac: S1, S2, regular rate. Lungs are clear to auscultation bilaterally. Abdomen is soft and nontender. Extremities are negative for edema. Neurologic: He is conversational, interactive and cooperative. Psychiatric: He is tearful. LABORATORY: White count 13, hemoglobin 10.1. Sodium 142, potassium 4.0, BUN 52, creatinine 1.7. INPATIENT MEDICATIONS: Reviewed by myself, and he received one dose of oral potassium 40mEq today and is on vancomycin 125 mg by mouth every 6 hours. Remainder of medications are unchanged from prior. Microbiology: GI PCR 07/10/2018 with Clostridium difficile. PROBLEMS: 1. Urinary retention. Patient has had postvoid residual bladder scan averaging about 800 to 1150 mL. He was previously refusing Mendoza catheter or straight catheterization; however, now agrees for straight catheterization twice daily and he continues on Flomax. 2. Chronic kidney disease stage IV. His renal function is actually better than baseline and at present, I will continue to hold his home loop diuretic given that he is having significant diarrhea. His volume status is acceptable, and his electrolytes are also improved. 3. Hypokalemia. This is resolved with potassium supplementation. His diuretic was initially held because of the hypokalemia; however, given the Clostridium difficile diarrhea and controlled volume status, I am continuing to hold his diuretic at present. 4. Hypertension. Blood pressures are acceptable and no changes are being made. 5. History of congestive heart failure. Volume status is presently compensated and diuretic is on hold. His volume status will be reassessed daily.
[2018-07-14 06:00] VITALS: BP 160/64
[2018-07-14] MEDS: HEPARIN SOD (PORCINE) 5000 UNITS/ML VIAL SQ SCH ×3 (06:18→21:59)
[2018-07-14] MEDS: VANCOMYCIN ORAL SOL 250MG/5ML ORAL SYRINGE PO SCH ×4 (06:18→23:57)
[2018-07-14] MEDS: PHENYTOIN 50 MG CHEW TABLET PO SCH ×3 (06:19→22:02)
[2018-07-14] MEDS: IPRATROPIUM 0.5MG/ALBUTEROL 2.5MG INH SOL UD 3ML (DUONEB)(J7620) NEB SCH ×3 (06:19→20:00)
[2018-07-14] MEDS: HumaLOG INSULIN (NovoLOG) PER UNIT SC SCH ×3 (07:30→16:48)
[2018-07-14] MEDS ORDERED: POTASSIUM CHLORIDE 10 MEQ SR TABLET PO ONE (08:00)
[2018-07-14 08:17] LABS: HEMATOCRIT 29.2 % (42.0-52.0); HEMOGLOBIN 9.5 g/dl (13.5-17.5); MEAN CORPUSCULAR HEMOGLOBIN 27.8 pg (27.0-33.0); MEAN CORPUSCULAR HGB CONC 32.5 g/dl (32.0-36.5); MEAN CORPUSCULAR VOLUME 85.4 fl (80.0-96.0); PLATELET COUNT, AUTOMATED 158 10^3/uL (150-450); RED BLOOD COUNT 3.42 10^6/uL (4.30-6.10); WHITE BLOOD COUNT 13.4 10^3/uL (4.0-10.0)
[2018-07-14 08:46] LABS: CREATININE FOR GFR 1.61 MG/DL (0.70-1.30); GLOMERULAR FILTRATION RATE 45.8 (>49)
[2018-07-14 08:47] LABS: ALBUMIN 2.5 GM/DL (3.2-5.2); BILIRUBIN,TOTAL 0.2 MG/DL (0.2-1.0); MAGNESIUM LEVEL 1.8 MG/DL (1.8-2.4); PERCENT SATURATION 25.2 % (19.7-50.0); POTASSIUM SERUM 3.4 MEQ/L (3.5-5.1); TOTAL PROTEIN 6.6 GM/DL (6.4-8.2)
[2018-07-14] MEDS: FEBUXOSTAT 40 MG TABLET (ULORIC) PO SCH (08:58)
[2018-07-14] MEDS: ASPIRIN 81 MG ENTERIC TAB PO SCH (08:58)
[2018-07-14] MEDS: FAMOTIDINE 20 MG TAB PO SCH ×2 (08:58→22:04)
[2018-07-14] MEDS: guaiFENesin 200 MG TAB PO SCH ×3 (08:59→22:03)
[2018-07-14] MEDS: LACTOBACILLUS ACIDOPHILUS CAP (BACID) PO SCH ×2 (08:59→17:52)
[2018-07-14] MEDS: GEMFIBROZIL 600 MG TAB PO SCH ×2 (08:59→22:03)
[2018-07-14] MEDS: ACETAMINOPHEN 500 MG TAB PO SCH ×3 (08:59→22:03)
[2018-07-14] MEDS: POTASSIUM CHLORIDE 10 MEQ SR TABLET PO SCH (09:00)
[2018-07-14] MEDS: CALCITRIOL 0.25 MCG CAP (S0169) PO SCH (09:00)
[2018-07-14] MEDS: CARVedilol 12.5 MG TAB PO SCH ×2 (09:03→22:02)
[2018-07-14] MEDS: amLODIPine 10 MG TAB PO SCH (09:03)
[2018-07-14] MEDS: LIDOCAINE 5% (LIDODERM) PATCH TD SCH (09:03)
[2018-07-14] MEDS: DIAPER RELIEF PASTE (DESITIN) 60GM TOP SCH ×2 (09:15→22:02)
--- NOTE | 2018-07-14 13:19 | IPNPDOC ---
Date Seen The patient was seen on 07/14/18. Progress Note HPI: 68M pnh HTN and DM, left carotid artery stenosis s/p stenting, gout, CAD, ENEDINA, CKD3, recent GIB who initially presented to [facility] on 06/29/18 with reported seizures, arrived with a Arnav Coma Scale of 3, was given loading dose of Dilantin and intubated. CTH showed a right frontal mass so he was transferred to [facility] in [place], [place] for further work-up. At [place] MRI on 06-30-18 showed a 3cm by 3cm right frontal lobe lesion with a hemorrhagic component, possible neoplam or less likley transformation of an infarction. He was found to have leukocytosis which was thought to be from seizure activity and remained afebrile. He had significant hyponatremia, acute on chronic CKD and elevated blood sugars managed with insulin. He was evaluated by neurosurgery and had a resection of his right frontal mass on 07/04/18 after which he was maintained on a Decadron taper and continued on Dilantin for seizure prophylaxis. He was evaluated by therapy and noted to have significant impairment in his ADLs and gait, and was deemed medically appropriate for transfer to [facility]U on 07-09-18, as per Dr Young, with pathology pending from his recent tumor resection. Pt reports loose stools still occurring. 6 yesterday. 1 documented today. denies abdominal pain, N/V. Appetite is decreased. Reports some cough, non productive. Denies dyspnea. Denies any fevers, chills, weakness, fatigue, STEPHENS, CP, palpitations. PE: GEN: 68yoM, appears stated age. Alert and oriented x 3. HEENT: Normocephalic, healing craniotomy scar. Pupils are equal, round, and reactive to light. Sclera are nonicteric. Conjunctiva without injection. No facial asymmetry. Moist mucous membranes. CHEST: Regular rate and rhythm, +S1, +S2 LUNGS: Decreased BS but clear bilaterally. No wheezes, rales, or rhonchi appreciated. ABD: Round, soft, non-tender, non-distended. +Bowel sounds throughout. EXT: No lower extremity edema appreciated. SKIN: [place], dry, warm. No rashes. A&P: 1. Frontal cranial mass status post resection at [facility] in [place] on 07/05/2018. Mgmt as per ARU. PT/OT/ST as per ARU Pain control as per ARU DVT prophylaxis as per ARU, SQ Heparin. Outpt F/U with Neurosurgery. Continue on Decadron taper as per Neurosurgery. Continue on Dilantin seizure prophylaxis as per Neurosurgery. Dilantin dose adjusted as per attending, Dilantin level 7.8 07/13/18. Dr Young adjusted dose, repeat Dilantin level ordered 07/19/18. Also, planning to request Neurology Clt to further assist with anticonvulsant recommendations. Seizure precautions. 2. C diff. positive BM x 6 yesterday. x 1 today. Afebrile. WBC 13.4. PO Vanco D4 Bacid 2 tab BID. HOLD Bowel care. HOLD PPI. IVF x 1 liter 07/12/18 as per Attending. 3. Hypokalemia. po supplement x 1 dose today. Mag level 1.8 07/14/18. BMP/Mag in AM. 4. Chronic kidney disease3. Nephrology following. Diuretic on hold. 5. Gout. On Uloric. 6. Hypertension. Norvasc 10 mg daily, carvedilol 25 mg BID. 7. Coronary artery disease. ASA 8. Carotid stenosis, status post endarterectomy. 9. Congestive heart failure. No sign of fluid overload. Diuretic is on hold. Nephrology following. 10. Diabetes. Levemir SSI 11. Benign prostatic hypertrophy (BPH). Flomax. 12. Cough. Afebrile. Denies SOB/Sputum. Add CXR. CBC in AM Encourage I/S. Monitor. GI prophylaxis. HOLD PPI. Add pepcid. VS, I&O, 24H, Fishbone Vital Signs/I&O Vital Signs Date Time Temp Pulse Resp B/P (MAP) Pulse Ox O2 Delivery O2 Flow Rate FiO2 07/14/18 09:03 85 160/64 07/14/18 06:00 98.1 19 98 Room Air I&O- Last 24 Hours up to 6 AM 07/14/18 06:00 Intake Total 410 ml Output Total 350 ml Balance 60 ml Laboratory Data 24H LABS Laboratory Tests 2 07/13/18 16:48: Bedside Glucose (Misc Panel) 162H 07/13/18 21:20: Bedside Glucose (Misc Panel) 142H 07/14/18 07:50: Nucleated Red Blood Cells % (auto) 0.0, Anion Gap 9, Glomerular Filtration Rate 45.8L, Blood Urea Nitrogen 35H, Creatinine 1.61H, Sodium Level 143, Potassium Level 3.4L, Chloride Level 113H, Carbon Dioxide Level 21, Calcium Level 8.0L, Aspartate Amino Transf (AST/SGOT) 11, Alanine Aminotransferase (ALT/SGPT) 12, Alkaline Phosphatase 150H, Total Bilirubin 0.2, Total Protein 6.6, Albumin 2.5L, Magnesium Level 1.8, Iron Level 40L, Total Iron Binding Capacity 159L, Transferrin % Saturation 25.2, Ferritin 418H, Albumin/Globulin Ratio 0.61L CBC/BMP Laboratory Tests 07/14/18 07:50 Red Blood Count 3.42 L, Mean Corpuscular Volume 85.4, Mean Corpuscular Hemoglobin 27.8, Mean Corpuscular Hemoglobin Concent 32.5, Red Cell Distribution Width 17.3 H, Calcium Level 8.0 L, Aspartate Amino Transf (AST/SGOT) 11, Alanine Aminotransferase (ALT/SGPT) 12, Alkaline Phosphatase 150 H, Total Bilirubin 0.2, Total Protein 6.6, Albumin 2.5 L Microbiology Microbiology 07/10/18 Gastrointestinal Tract Panel (PCR) - Final, Complete Clostridium Difficile A/B 07/09/18 Urine Culture - Final, Complete Saadia Campbell Jul 14, 2018 13:19
[2018-07-14 14:45] LABS: FOLATE 2.2 NG/ML (>5.4)
[2018-07-14 15:00] VITALS: BP 164/74
--- NOTE | 2018-07-14 15:44 | REP ---
Chest x-ray: Two views. History: Cough. Comparison chest x-ray: June 29, 2018. Findings: Frontal and lateral views are presented. The patient is left hand overlies the lung base on the frontal view. The lungs appear to be clear. Pleural angles are sharp. Heart is not enlarged. Pulmonary vasculature is not increased. Impression: No acute disease. Electronically Signed by Gurpreet Pizano MD 07/14/2018 03:36 P
--- NOTE | 2018-07-14 16:20 | IPNPDOC ---
PM&R Progress Note DATE OF SERVICE: Jul 14, 2018 [facility] Progress Note Subjective: Patient states his diarrhea is worse at night and he has no control over when it is going to come. He would like more privacy using the toilet and denies he adaches today. He reports he is drinking plenty of fluid. REVIEW OF SYSTEMS: The following is a completed review of systems and has been reviewed. Review of systems otherwise unremarkable. PAIN: Patient self reports bilateral chronic knee pain EYES: Negative for recent vision changes EARS, NOSE, & THROAT: dysphagia (resolved) denies, rhinorrhea CARDIOVASCULAR: +sternal pain, otherwise no palpitations PULMONARY: Negative. Denies shortness of breath, + cough GASTROINTESTINAL: no diarrhea or constipation GENITOURINARY: Negative for dysuria or hematuria, + retention (improving) MUSCULOSKELETAL: bilateral knee OA vs gout NEUROLOGICAL: s/p right frontal lobe resection , seizures HEMATOLOGICAL: Negative SKIN: sacral ulcer PSYCHIATRIC: Unremarkable All other review of systems found to be negative. PHYSICAL EXAMINATION: VITAL SIGNS: Please see below. GENERAL: Pleasant and cooperative. No acute distress. HEENT: PERRL. Extraocular movements intact. Clear conjunctiva, left facial droop (eyebrow sparing) CARDIOVASCULAR: Regular rate and rhythm. No murmurs, rubs, or gallops +TTP sternal palpation LUNGS: Clear to auscultation bilaterally. No wheezes. No rhonchi ABDOMEN: Soft, nontender, nondistended. Positive bowel sounds. Normal active bowel sound NEUROLOGICAL: Alert and oriented times to self and place, not time Cranial nerves II through XII grossly intact. Sensation grossly intact able to follow 2-step commands, however unable to perform Luria, +Apraxia EXTREMITIES:5\5 strength bilateral upper extremities. >3/5 bilateral hip flexors and knee extensors, 5/5 bilateral ankle DF and EHL Bilateral knees warm to touch with effusion SKIN: sacral ulcer, right frontal craniotonomy incision c/d/i ASSESSMENT:68-year-old M with past medical history of ENEDINA, HTN, CAD who presents status post right frontal mass resection with seizures. PLAN: 1. rehab: [facility], [facility] advance diet, assess for DME- significant apraxia 2. Neuro:s/p right frontal mass resection, pathology results pending, Dilantin for seizures 125q8h, however levels low at 9.1, increased to 150 qh on 07/12/18 and recheck 07/19/18, ordered neuro consult for possible transition to Keppra -continue Decadron taper, awaiting pathology results 3. Cardio: pmh HTn and HLD, hx of CHF, continue home med, diuretics on hold per renal recs- medicine consulted 4. Resp: Enedina non-compliant with CPAP, will provide nocturnal 02, will order chest X-ray for coughing today on exam- will order Guaifenesin 5. Endo: pmh DM continue home meds and adjust prn 6. Rheum: pmh gout, continue Uloric 7. DVY ppx: continue heparin 8. GI ppx: omeprazole, patient found to have +C diff , continue Vancomycin, s/p IVF -reidual leukocytosis mat be Decadron 9. : admission UA and Ucx negative monitor PVRs- renal consulted for retention and CKD, recs appreciated 10. Pain: patient with headaches, Tylenol and Fiorcet prn 11. Dispo: 08/02/18, slowly progressing towards goals Allergies Coded Allergies: No Known Allergies (Verified , 03/30/18) Vital Signs Vital Signs Date Time Temp Pulse Resp B/P (MAP) Pulse Ox O2 Delivery O2 Flow Rate FiO2 07/14/18 09:03 85 160/64 07/14/18 06:00 98.1 19 98 Room Air Laboratory Data CBC/BMP Laboratory Tests 07/14/18 07:50 Red Blood Count 3.42 L, Mean Corpuscular Volume 85.4, Mean Corpuscular Hemoglobin 27.8, Mean Corpuscular Hemoglobin Concent 32.5, Red Cell Distribution Width 17.3 H, Calcium Level 8.0 L, Aspartate Amino Transf (AST/SGOT) 11, Alanine Aminotransferase (ALT/SGPT) 12, Alkaline Phosphatase 150 H, Total Bilirubin 0.2, Total Protein 6.6, Albumin 2.5 L Labs 24H Laboratory Tests 2 07/13/18 16:48: Bedside Glucose (Misc Panel) 162H 07/13/18 21:20: Bedside Glucose (Misc Panel) 142H 07/14/18 07:50: Nucleated Red Blood Cells % (auto) 0.0, Anion Gap 9, Glomerular Filtration Rate 45.8L, Blood Urea Nitrogen 35H, Creatinine 1.61H, Sodium Level 143, Potassium Level 3.4L, Chloride Level 113H, Carbon Dioxide Level 21, Calcium Level 8.0L, Aspartate Amino Transf (AST/SGOT) 11, Alanine Aminotransferase (ALT/SGPT) 12, Alkaline Phosphatase 150H, Total Bilirubin 0.2, Total Protein 6.6, Albumin 2.5L, Magnesium Level 1.8, Iron Level 40L, Total Iron Binding Capacity 159L, Transferrin % Saturation 25.2, Ferritin 418H, Albumin/Globulin Ratio 0.61L, Folate 2.2L Microbiology Microbiology 07/10/18 Gastrointestinal Tract Panel (PCR) - Final, Complete Clostridium Difficile A/B 07/09/18 Urine Culture - Final, Complete Current Medications Current Medications Current Medications Acetaminophen (Tylenol Tab) 650 mg DAILY PRN PO fever; Start 07/09/18 at 21:00 Acetaminophen (Tylenol Tab) 1,000 mg TID PO Last administered on 07/14/18 15:32; Start 07/09/18 at 21:00 Acetaminophen/ Butalbital/ Caffeine (Fioricet) 1 ea Q6HP PRN PO HEADACHE Last administered on 07/12/18 12:58; Start 07/12/18 at 11:00 Albuterol/ Ipratropium (Duoneb (Ipr 0.5mg/Alb 2.5mg)) 3 ml RBID NEB Last administered on 07/14/18 12:31; Start 07/10/18 at 08:00 Amlodipine Besylate (Norvasc) 10 mg DAILY PO Last administered on 07/14/18 09:03; Start 07/10/18 at 09:00 Aspirin (Ecotrin) 81 mg DAILY PO Last administered on 07/14/18 08:58; Start 07/10/18 at 09:00 Bisacodyl (Dulcolax Suppository) 10 mg DAILYPRN PRN TN CONSTIPATION; Start 07/09/18 at 21:15 Calcitriol (Rocaltrol) 0.25 mcg DAILY PO Last administered on 07/14/18 09:00; Start 07/10/18 at 09:00 Carvedilol (COReg) 12.5 mg BID PO Last administered on 07/14/18 09:03; Start 07/09/18 at 21:00; Stop 07/14/18 at 11:08; Status DC Carvedilol (COReg) 25 mg BID PO ; Start 07/14/18 at 21:00 Cod Liver Oil/ Zinc Oxide (Desitin) apply to sacrum BID TOP Last administered on 07/14/18at 09:15; Start 07/10/18 at 09:00 Dexamethasone (Decadron) 2 mg DAILY PO ; Start 07/18/18 at 09:00; Stop 07/23/18 at 08:59 Dexamethasone (Decadron) 2 mg Q12H PO Last administered on 07/14/18at 08:58; Start 07/13/18 at 21:00; Stop 07/17/18 at 20:59 Dexamethasone (Decadron) 4 mg Q12H PO Last administered on 07/13/18 08:35; Start 07/09/18 at 21:00; Stop 07/13/18 at 20:59; Status DC Dextrose (Dextrose 50%) 25 ml ASDIRECTED PRN IV SEE LABEL COMMENTS; Start 07/09/18 at 21:00 Famotidine (Pepcid) 10 mg BID PO Last administered on 07/14/18at 08:58; Start 07/12/18 at 15:00 Febuxostat (Uloric) 120 mg DAILY PO Last administered on 07/14/18 08:58; Start 07/10/18 at 09:00 Gemfibrozil (Lopid) 600 mg BID PO Last administered on 07/14/18 08:59; Start 07/09/18 at 21:00 Glucagon (Glucagon) 1 mg ASDIRECTED PRN SC SEE LABEL COMMENTS; Start 07/09/18 at 21:00 Glucose (Glucose) 16 GM ASDIRECTED PRN PO SEE LABEL COMMENTS; Start 07/09/18 at 21:00 Guaifenesin (Robitussin Tab) 400 mg TID PO Last administered on 07/14/18at 15:32; Start 07/10/18 at 09:00 Heparin Sodium (Porcine) (Heparin) 5,000 units Q8H SQ Last administered on 07/14/18at 14:28; Start 07/09/18 at 22:00 Home Med (Med Rec Complete!) ASDIRECTED XX ; Start 07/09/18 at 23:00; Stop 07/09/18 at 23:00; Status DC Insulin Detemir (Levemir Insulin) 20 units QHS SC Last administered on 07/13/18at 21:41; Start 07/09/18 at 21:00 Insulin Human Lispro (HumaLOG INSULIN) SEE PROTOCOL TABLE AC SC Last administered on 07/13/18at 12:14; Start 07/10/18 at 07:30 Lactobacillus Acidophilus (Bacid) 1 ea BIDWM PO Last administered on 07/14/18at 08:59; Start 07/11/18 at 08:00; Stop 07/14/18 at 13:09; Status DC Lactobacillus Acidophilus (Bacid) 2 ea BIDWM PO ; Start 07/14/18 at 18:00 Lidocaine (Lidoderm Patch) 1 patch DAILY TD Last administered on 07/14/18 09:03; Start 07/10/18 at 09:00 Lorazepam (Ativan) 2 mg Q6H PRN IV SEIZURES; Start 07/10/18 at 02:30 Magnesium Hydroxide (Milk Of Magnesia) 30 ml DAILYPRN PRN PO CONSTIPATION; Start 07/09/18 at 21:15 Metronidazole (Flagyl) 500 mg Q8H PO Last administered on 07/11/18at 05:01; Start 07/11/18 at 04:00; Stop 07/11/18 at 07:12; Status DC Non-Formulary Medication ( See Comment Field Below ) REMOVE LIDODERM PATCH DAILY@21 XX Last administered on 07/13/18at 21:00; Start 07/09/18 at 21:00 Omeprazole (PriLOSEC) 40 mg QHS PO Last administered on 07/11/18at 22:26; Start 07/09/18 at 21:00; Stop 07/12/18 at 14:39; Status DC Ondansetron HCl (Zofran) 4 mg Q6HP PRN PO NAUSEA; Start 07/09/18 at 21:15 Phenytoin (Dilantin Chewable) 125 mg Q8H PO Last administered on 07/12/18at 05:49; Start 07/09/18 at 22:00; Stop 07/12/18 at 10:30; Status DC Phenytoin (Dilantin Chewable) 150 mg Q8H PO Last administered on 07/14/18at 14:28; Start 07/12/18 at 14:00 Potassium Chloride (Micro-K Extencaps) 20 meq DAILY PO Last administered on 07/14/18at 09:00; Start 07/12/18 at 09:00 Senna/Docusate Sodium (Senokot S) 1 tab BID PO Last administered on 07/11/18at 22:23; Start 07/10/18 at 09:00; Stop 07/12/18 at 14:39; Status DC Tamsulosin HCl (Flomax) 0.4 mg QHS PO Last administered on 07/13/18at 21:41; Start 07/09/18 at 21:00 Torsemide (Demadex) 50 mg BID@,17 PO ; Start 07/10/18 at 09:00; Stop 07/10/18 at 09:24; Status DC Trazodone HCl (Desyrel) 25 mg QHSP PRN PO INSOMNIA; Start 07/09/18 at 21:00 Vancomycin HCl (First-Vancomycin 50(Firvanq)- 250mg/5ml) 125 mg Q6H PO Last administered on 07/14/18at 14:27; Start 07/11/18 at 06:00 Zinc Oxide (Boudreauxs Butt Paste) sacrum BID TOP ; Start 07/10/18 at 09:00; Stop 07/10/18 at 13:02; Status DC ESTRELLITA STANTON MD Jul 14, 2018 16:20
--- NOTE | 2018-07-14 19:34 | IPNPDOC ---
Text Note Date of Service The patient was seen on 07/14/18. NOTE SUBJECTIVE: Patient was examined at bedside. He was sleeping comfortably and had to be awoken. He was pleasant and conversant. He continues to admit to on going diarrhea, that is affecting his sleep. He also complained about his displeasure with his straight catheters. He is from a conservative culture and does not like having to be straight cath. The straight catheter was ordered because of his large residual volume. Currently he is able to urinate on his own and had 300 ml of urine yesterday. No post void residual volume was recorded. He was afebrile overnight. Denies chest pain, denies nausea, denied vomiting, . Denies shortness of breath, or difficulty breathing. He continues to work with rehab. SUBJECTIVE: VITAL SIGNS: See Below PE General: Sleeping, arousable, conversant, orientated, no acute distress Extraocular movements are intact. There is an approximated wound on his front scalp with wilda. Tongue is moist. Neck is supple. No JVD Cardiac: Regular rate, regular rhythm, S1 and S2 present. No murmurs Lungs: CTAB Abdomen is soft and nontender, bowel sounds present Extremities: No edema, No deformities Neurologic: He is conversational, interactive and cooperative. Psychiatric: Distract over his diarrhea, also upset over his straight cath LABORATORY: WBC 13.4, hemoglobin is 9.5, hematocrit is 29.2, sodium 143, potassium 3.4, BUN 35, creatinine 1.61 Microbiology: GI PCR 07/10/2018 with Clostridium difficile. PROBLEMS: 1. Urinary retention. Patient has had postvoid residual bladder scan averaging about 800 to 1150 mL. An order was placed for straight catheterization, because he he was refusing riggins catheter. This morning he expressed displeasure with the straight cath. Discussed with patient that his straight cath can be discon tinued if he is able to urinate on his own with a low post void residual volume. He has been able to urinate on his own, at increase volume and low residual volume. Will continue to monitor his urine output. 2. Chronic kidney disease stage IV. He currently has better renal function than his baseline. I will continue to hold his home loop diuretic given that he is having significant diarrhea. Volume status is acceptable, and his electrolytes are also improved. 3. Diarrhea secondary to C. Diff. He is currently on oral vancomycin and bacid. I recommend flagyl due to on going diarrhea 4. Hypokalemia.Resolved with potassium supplementation. His diuretic was initially held because of the hypokalemia; however, given the Clostridium difficile diarrhea and controlled volume status, I am continuing to hold his diuretic at present. 5. Hypertension. Blood pressures are acceptable and no changes are being made. 6. History of congestive heart failure. Volume status is presently compensated and diuretic is on hold. His volume status will be reassessed daily. VS,Fishbone, I+O VS, Fishbone, I+O Laboratory Tests 07/14/18 07:50 Red Blood Count 3.42 L, Mean Corpuscular Volume 85.4, Mean Corpuscular Hemoglobin 27.8, Mean Corpuscular Hemoglobin Concent 32.5, Red Cell Distribution Width 17.3 H, Calcium Level 8.0 L, Aspartate Amino Transf (AST/SGOT) 11, Alanine Aminotransferase (ALT/SGPT) 12, Alkaline Phosphatase 150 H, Total Bilirubin 0.2, Total Protein 6.6, Albumin 2.5 L Vital Signs Date Time Temp Pulse Resp B/P (MAP) Pulse Ox O2 Delivery O2 Flow Rate FiO2 07/14/18 15:00 98.4 18 164/74 (104) 95 Room Air 07/14/18 09:03 85 I&O- Last 24 Hours up to 6 AM 07/14/18 06:00 Intake Total 410 ml Output Total 350 ml Balance 60 ml GME ATTESTATION GME ATTESTATION My faculty preceptor for this patient encounter was physically present during the encounter and was fully available. All aspects of the patient interview, examination, medical decision making process, and medical care plan development were reviewed and approved by the faculty preceptor. The faculty preceptor is aware and concurs with the plan as stated in the body of this note and will attest to such by his/her cosignature. LE WILLIAM DO Jul 14, 2018 19:34
[2018-07-14 21:00] VITALS: BP 140/74
[2018-07-14] MEDS: **NOTE PATIENT COMMENT** MISC XX SCH (21:00)
[2018-07-14] MEDS ORDERED: IPRATROPIUM 0.5MG/ALBUTEROL 2.5MG INH SOL UD 3ML (DUONEB)(J7620) NEB SCH (21:00)
[2018-07-14] MEDS ORDERED: guaiFENesin 200 MG TAB PO SCH (21:00)
[2018-07-14] MEDS: TAMSULOSIN 0.4 MG CAP PO SCH (22:04)
[2018-07-14] MEDS: LEVEMIR (INSULIN DETEMIR) 1 UNITS/0.01ML SC SCH (22:04)
--- NOTE | 2018-07-14 23:09 | REPVR ---
EXAM: CT Head Without Contrast EXAM DATE/TIME: 07/14/2018 10:33 PM CLINICAL HISTORY: 68 years old, male; Injury or trauma; Fall; Prior surgery; Surgery date: 3-7 days post-operative; Additional info: Rule out head injury TECHNIQUE: Axial computed tomography images of the head/brain without contrast. All CT scans at this facility use at least one of these dose optimization techniques: automated exposure control; mA and/or kV adjustment per patient size (includes targeted exams where dose is matched to clinical indication); or iterative reconstruction. COMPARISON: CT Head without contrast 06/29/2018 10:23 AM FINDINGS: Brain: Postoperative pneumocephalus and extra-axial fluid collection surrounded by thickened membranes is demonstrated. Large focus of postsurgical macrocystic encephalomalacia in the right frontoparietal region. There is parenchymal volume loss. Mild white matter changes are again demonstrated in the subcortical, centrum semiovale and periventricular white matter consistent with small vessel white matter angiopathic gliosis. Ventricles: The degree of ventricular dilatation is normal for age. No pathologic enlargement demonstrated. Bones/joints: Status post right frontoparietal craniotomy. Sinuses: Normal as visualized. No acute sinusitis. Mastoid air cells: Normal as visualized. No mastoid effusion. Soft tissues: Normal. IMPRESSION: 1. Postoperative pneumocephalus and extra-axial fluid collection surrounded by thickened membranes is demonstrated. Large focus of postsurgical macrocystic encephalomalacia in the right frontoparietal region. 2. There is parenchymal volume loss. Mild white matter changes are again demonstrated in the subcortical, centrum semiovale and periventricular white matter consistent with small vessel white matter angiopathic gliosis. Electronically signed by: Arnold Akhtar On 07/14/2018 23:08:50 PM
[2018-07-15 06:00] VITALS: BP 142/76
[2018-07-15] MEDS: PHENYTOIN 50 MG CHEW TABLET PO SCH ×3 (06:20→21:07)
[2018-07-15] MEDS: VANCOMYCIN ORAL SOL 250MG/5ML ORAL SYRINGE PO SCH ×3 (06:20→17:53)
[2018-07-15] MEDS: HEPARIN SOD (PORCINE) 5000 UNITS/ML VIAL SQ SCH ×3 (06:21→21:10)
--- NOTE | 2018-07-15 06:30 | CR ---
DATE OF CONSULTATION: 07/14/2018 REFERRING PHYSICIAN: Dr. Young REASON FOR CONSULTATION: Seizures. HISTORY OF PRESENT ILLNESS: Christopher Isaac is a 68-year-old man with history of multiple medical problems who came to [facility] last week after two or three generalized tonic-clonic seizures. His found him on the floor unconscious and he started shaking all over his body and remained unconscious. He was postictal when EMS took him in the ambulance and he had a second witnessed seizure in the ambulance and was given Ativan to stop his seizure. He was brought to [facility] where CT scan of his head showed a possible right frontal mass. He was transferred to [facility]. The patient was given Dilantin for his seizures. Postoperatively, the neurosurgeon told the patient's that it did not appear to them that he had a tumor. They thought that he may have had a past stroke. Before they were discharged from [facility], they were told that biopsy and pathology reports were unremarkable and did not reveal any tumor. All of this information was obtained from the patient's who was present during this visit. We will request all the MRI scans and CT scans and biopsy and pathology reports from [facility]. The patient remains seizure-free. The patient told his and he was still at [facility] and that he had a third seizure before she had found him unconscious. The patient remained seizure-free for the last 1 week. The patient has a history of multiple medical problems and currently is going through physical rehabilitation. He is currently using a walker for ambulation. The patient denies having any stroke-like symptoms over last couple of months. The patient had left carotid endarterectomy [place] [address] Rosa who was also closely monitoring his right internal carotid artery. PAST MEDICAL HISTORY: Hypertension, diabetes, left carotid endarterectomy, coronary artery disease, congestive heart failure, chronic obstructive pulmonary disease (COPD), sleep apnea, chronic kidney disease stage IV, acid reflux, cataract surgery. CURRENT MEDICATIONS: - Decadron 2 mg three times a day - phenytoin 150 mg by mouth three times a day - trazodone - Flomax - Fioricet - carvedilol - Norvasc - torsemide - aspirin - magnesium - insulin - gemfibrozil SOCIAL HISTORY: Former smoker. He denies alcohol or illicit drugs. FAMILY HISTORY: There is no family history of cancers. REVIEW OF SYSTEMS: All systems were reviewed and found to be noncontributory except as mentioned in history of present illness. PHYSICAL EXAMINATION: Temperature 98.4, pulse 68, respiratory rate 18, blood pressure 164/74, 95% saturation on room air. Heart: Regular rate and rhythm. Lungs: Clear to auscultation. Abdomen: Soft, nontender, nondistended. 1+ pedal edema. No musculoskeletal abnormalities or rash. No signs of meningeal irritation. No tremor or dysmetria. The patient is awake, alert, oriented to place, month, and year. Extraocular muscles are intact. No facial weakness. Tongue and uvula are midline. Visual dial are full to confrontation. Pupils are 6 mm bilaterally and reactive to light. Recent and distant memory is intact. 4+/5 strength throughout. Deep tendon flexes are absent. He has decreased cold pinprick vibration sensation in his feet. His gait is unsteady. He is using a walker and assistance for ambulation. ASSESSMENT: 1. Focal onset, secondary generalized tonic-clonic seizures due to old right frontal lobe ischemic stroke. 2. According to the patient's , surgery and biopsy did not reveal any tumor in right frontal lobe. We will get reports of all of his scans, biopsy and pathology reports from [facility]. They were told that it was old necrotic tissue from prior stroke. 3. Multifactorial gait difficulty. 4. Diabetic peripheral neuropathy. PLAN: 1. Continue phenytoin 150 mg by mouth three times a day. Switching it to Depakote will be a better option. Keppra can cause mood changes and irritability. We may have to use a low dose of Keppra because of his stage IV kidney disease and if his creatinine fluctuates his Keppra level will fluctuate as well. Depakote extended-release will not have that problem. Depakote is cleared mostly through rhe liver. 2. Get reports of his MRI scans, CT scans and pathology reports from [facility]. 3. Taper off Decadron as it may aggravate muscle weakness and aggravate his diabetes. He can decrease Decadron to 2 mg twice a day today and once a day tomorrow and stop in a couple of days. There is no need to use Decadron, especially when there was no tumor found and it was an old stroke. 4. Follow with our office 2-4 weeks after discharge from rehabilitation. After reviewing his MRI scans from [facility], we will decide if he needs ultrasound of his carotid arteries. He is being closely followed by Dr. Rosa for his right carotid artery stenosis. He had left carotid endarterectomy [place] [address] Rosa.
[2018-07-15 06:46] LABS: HEMATOCRIT 29.7 % (42.0-52.0); HEMOGLOBIN 9.5 g/dl (13.5-17.5); MEAN CORPUSCULAR HEMOGLOBIN 27.5 pg (27.0-33.0); MEAN CORPUSCULAR VOLUME 86.1 fl (80.0-96.0); PLATELET COUNT, AUTOMATED 153 10^3/uL (150-450); RED BLOOD COUNT 3.45 10^6/uL (4.30-6.10); WHITE BLOOD COUNT 12.4 10^3/uL (4.0-10.0)
[2018-07-15] MEDS: IPRATROPIUM 0.5MG/ALBUTEROL 2.5MG INH SOL UD 3ML (DUONEB)(J7620) NEB SCH ×2 (07:11→21:20)
[2018-07-15 07:14] LABS: ALBUMIN 2.2 GM/DL (3.2-5.2); BILIRUBIN,TOTAL 0.3 MG/DL (0.2-1.0); CALCIUM LEVEL 8.4 MG/DL (8.8-10.2); CREATININE FOR GFR 1.33 MG/DL (0.70-1.30); GLOMERULAR FILTRATION RATE 57.1 (>49); MAGNESIUM LEVEL 1.9 MG/DL (1.8-2.4); POTASSIUM SERUM 3.3 MEQ/L (3.5-5.1); TOTAL PROTEIN 6.5 GM/DL (6.4-8.2)
[2018-07-15] MEDS: HumaLOG INSULIN (NovoLOG) PER UNIT SC SCH ×3 (07:30→17:13)
[2018-07-15] MEDS: DIAPER RELIEF PASTE (DESITIN) 60GM TOP SCH ×2 (09:00→21:00)
[2018-07-15] MEDS: CARVedilol 12.5 MG TAB PO SCH ×2 (09:00→21:09)
[2018-07-15] MEDS: ACETAMINOPHEN 500 MG TAB PO SCH ×3 (09:22→21:08)
[2018-07-15] MEDS: FAMOTIDINE 20 MG TAB PO SCH ×2 (09:22→21:09)
[2018-07-15] MEDS: ASPIRIN 81 MG ENTERIC TAB PO SCH (09:22)
[2018-07-15] MEDS: GEMFIBROZIL 600 MG TAB PO SCH ×2 (09:22→21:08)
[2018-07-15] MEDS: FEBUXOSTAT 40 MG TABLET (ULORIC) PO SCH (09:22)
[2018-07-15] MEDS: CALCITRIOL 0.25 MCG CAP (S0169) PO SCH (09:22)
[2018-07-15] MEDS: guaiFENesin 200 MG TAB PO SCH ×3 (09:23→21:09)
[2018-07-15] MEDS: LACTOBACILLUS ACIDOPHILUS CAP (BACID) PO SCH ×2 (09:23→17:53)
[2018-07-15] MEDS: amLODIPine 10 MG TAB PO SCH (09:24)
[2018-07-15] MEDS: LIDOCAINE 5% (LIDODERM) PATCH TD SCH (09:25)
[2018-07-15] MEDS ORDERED: POTASSIUM CHLORIDE 10 MEQ SR TABLET PO ONE (10:00)
[2018-07-15] MEDS: POTASSIUM CHLORIDE 10 MEQ SR TABLET PO SCH (12:28)
[2018-07-15 14:00] VITALS: BP 168/68
--- NOTE | 2018-07-15 14:31 | IPNPDOC ---
Date Seen The patient was seen on 07/15/18. Progress Note HPI: 68M pnh HTN and DM, left carotid artery stenosis s/p stenting, gout, CAD, ENEDINA, CKD3, recent GIB who initially presented to [facility] on 06/29/18 with reported seizures, arrived with a Arnav Coma Scale of 3, was given loading dose of Dilantin and intubated. CTH showed a right frontal mass so he was transferred to [facility] in [place], [place] for further work-up. At [place] MRI on 06-30-18 showed a 3cm by 3cm right frontal lobe lesion with a hemorrhagic component, possible neoplam or less likley transformation of an infarction. He was found to have leukocytosis which was thought to be from seizure activity and remained afebrile. He had significant hyponatremia, acute on chronic CKD and elevated blood sugars managed with insulin. He was evaluated by neurosurgery and had a resection of his right frontal mass on 07/04/18 after which he was maintained on a Decadron taper and continued on Dilantin for seizure prophylaxis. He was evaluated by therapy and noted to have significant impairment in his ADLs and gait, and was deemed medically appropriate for transfer to [facility] ARU on 07-09-18, as per Dr Young, with pathology pending from his recent tumor resection. Pt reports loose stools still occurring. 4 yesterday. None documented today. denies abdominal pain, N/V. Appetite is decreased. Has had some cough, non productive. Denies dyspnea. Slid OOB last night and was found sitting on floor at bedside. Denies any fevers, chills, weakness, fatigue, STEPHENS, CP, palpitations. PE: GEN: 68yoM, appears stated age. Alert and oriented x 3. HEENT: Normocephalic, healing craniotomy scar. Pupils are equal, round, and reactive to light. Sclera are nonicteric. Conjunctiva without injection. No facial asymmetry. Moist mucous membranes. CHEST: Regular rate and rhythm, +S1, +S2 LUNGS: Decreased BS but clear bilaterally. No wheezes, rales, or rhonchi appreciated. ABD: Round, soft, non-tender, non-distended. +Bowel sounds throughout. EXT: No lower extremity edema appreciated. SKIN: [place], dry, warm. No rashes. A&P: 1. Frontal cranial mass status post resection at [facility] in [place] on 07/05/2018. Mgmt as per ARU. PT/OT/ST as per ARU Pain control as per ARU DVT prophylaxis as per ARU, SQ Heparin. Outpt F/U with Neurosurgery. Continue on Decadron taper as per Neurosurgery. Continue on Dilantin seizure prophylaxis as per Neurosurgery. Dilantin dose adjusted as per attending, Dilantin level 7.8 07/13/18. Dr Young adjusted dose, repeat Dilantin level ordered 07/19/18. Seen by Neurology appreciate any further recommendations. Seizure precautions. Slid OOB 07/14/18- CT head completed with no acute changes. 2. C diff. positive BM x 4yesterday. None so far today. Afebrile. WBC 12.4. PO Vanco D5 Bacid 2 tab BID. HOLD Bowel care. HOLD PPI. IVF x 1 liter 07/12/18 as per Attending. 3. Hypokalemia. po supplement x 2 doses today. Mag level 1.8 07/14/18. BMP in AM. 4. Chronic kidney disease3. Nephrology following. SCr 1.33. Diuretic on hold. 5. Gout. On Uloric. 6. Hypertension. Norvasc 10 mg daily, carvedilol 25 mg BID. 7. Coronary artery disease. ASA 8. Carotid stenosis, status post endarterectomy. 9. Congestive heart failure. No sign of fluid overload. Diuretic is on hold. Nephrology following. 10. Diabetes. Hypoglycemia this AM with BS 38. Diet changed to regular mech soft, thin liq related to poor po intake. Levemir dose decreased from 20 to 10u HS SSI Monitor. 11. Benign prostatic hypertrophy (BPH). Flomax. 12. Cough/URI Afebrile. CXR 07/14/18 NAD. respiratory panel 07/14/18 RESPIRATORY PANEL Final POSITIVE by MULTIPLEXED NUCLEIC ACID PCR Organism 1 HUMAN RHINOVIRUS/ENTEROVIRUS CBC in AM Encourage I/S. Monitor. 13. GI prophylaxis. HOLD PPI. Add pepcid. VS, I&O, 24H, Fishbone Vital Signs/I&O Vital Signs Date Time Temp Pulse Resp B/P (MAP) Pulse Ox O2 Delivery O2 Flow Rate FiO2 07/15/18 09:24 67 142/76 07/15/18 06:00 97.2 20 97 Room Air I&O- Last 24 Hours up to 6 AM 07/15/18 06:00 Intake Total 840 ml Output Total 2300 ml Balance -1460 ml Laboratory Data 24H LABS Laboratory Tests 2 07/14/18 16:36: Bedside Glucose (Misc Panel) 100 07/14/18 21:45: Bedside Glucose (Misc Panel) 111 07/15/18 06:20: Nucleated Red Blood Cells % (auto) 0.0, Anion Gap 10, Glomerular Filtration Rate 57.1, Blood Urea Nitrogen 27H, Creatinine 1.33H, Sodium Level 145, Potassium Level 3.3L, Chloride Level 117H, Carbon Dioxide Level 18L, Calcium Level 8.4L, Aspartate Amino Transf (AST/SGOT) 16, Alanine Aminotransferase (ALT/SGPT) 12, Alkaline Phosphatase 143H, Total Bilirubin 0.3, Total Protein 6.5, Albumin 2.2L, Magnesium Level 1.9, Albumin/Globulin Ratio 0.51L 07/15/18 06:21: Bedside Glucose (Misc Panel) 38*L 07/15/18 07:24: Bedside Glucose (Misc Panel) 86 07/15/18 11:49: Bedside Glucose (Misc Panel) 119H CBC/BMP Laboratory Tests 07/15/18 06:20 Red Blood Count 3.45 L, Mean Corpuscular Volume 86.1, Mean Corpuscular Hemoglobin 27.5, Mean Corpuscular Hemoglobin Concent 32.0, Red Cell Distribution Width 17.4 H, Calcium Level 8.4 L, Aspartate Amino Transf (AST/SGOT) 16, Alanine Aminotransferase (ALT/SGPT) 12, Alkaline Phosphatase 143 H, Total Bilirubin 0.3, Total Protein 6.5, Albumin 2.2 L Microbiology Microbiology 07/10/18 Gastrointestinal Tract Panel (PCR) - Final, Complete Clostridium Difficile A/B 07/14/18 Respiratory Virus Panel (PCR) (MAYCOL) - Final, Complete Human Rhinovirus/Enterovirus 07/09/18 Urine Culture - Final, Complete Saadia Campbell Jul 15, 2018 14:31
[2018-07-15 15:48] VITALS: BP 148/70
[2018-07-15 20:00] VITALS: BP 162/74
[2018-07-15] MEDS: **NOTE PATIENT COMMENT** MISC XX SCH (21:00)
[2018-07-15] MEDS: TAMSULOSIN 0.4 MG CAP PO SCH (21:08)
[2018-07-15] MEDS: LEVEMIR (INSULIN DETEMIR) 1 UNITS/0.01ML SC SCH (21:08)
--- NOTE | 2018-07-15 21:59 | IPNPDOC ---
PM&R Progress Note DATE OF SERVICE: Jul 15, 2018 W[employer] Inspector Progress Note Subjective: Patient states whenever he coughs he has loose stools and is frustrated by his inability to get to the toilet on time at night. He is anxious about doing th erapy in the gym with C diff. REVIEW OF SYSTEMS: The following is a completed review of systems and has been reviewed. Review of systems otherwise unremarkable. PAIN: Patient self reports bilateral chronic knee pain EYES: Negative for recent vision changes EARS, NOSE, & THROAT: dysphagia (resolved) denies, rhinorrhea CARDIOVASCULAR: +sternal pain, otherwise no palpitations PULMONARY: Negative. Denies shortness of breath, + cough GASTROINTESTINAL: no diarrhea or constipation GENITOURINARY: Negative for dysuria or hematuria, + retention (improving) MUSCULOSKELETAL: bilateral knee OA vs gout NEUROLOGICAL: s/p right frontal lobe resection , seizures HEMATOLOGICAL: Negative SKIN: sacral ulcer PSYCHIATRIC: Unremarkable All other review of systems found to be negative. PHYSICAL EXAMINATION: VITAL SIGNS: Please see below. GENERAL: Pleasant and cooperative. No acute distress. HEENT: PERRL. Extraocular movements intact. Clear conjunctiva, left facial droop (eyebrow sparing) CARDIOVASCULAR: Regular rate and rhythm. No murmurs, rubs, or gallops +TTP sternal palpation LUNGS: Clear to auscultation bilaterally. No wheezes. No rhonchi ABDOMEN: Soft, nontender, nondistended. Positive bowel sounds. Normal active bowel sound NEUROLOGICAL: Alert and oriented times to self and place, not time Cranial nerves II through XII grossly intact. Sensation grossly intact able to follow 2-step commands, however unable to perform Luria, +Apraxia EXTREMITIES:5\5 strength bilateral upper extremities. >3/5 bilateral hip flexors and knee extensors, 5/5 bilateral ankle DF and EHL Bilateral knees warm to touch with effusion SKIN: sacral ulcer, right frontal craniotonomy incision c/d/i ASSESSMENT:68-year-old M with past medical history of ENEDINA, HTN, CAD who presents status post right frontal mass resection with seizures. PLAN: 1. rehab: PTOT, [employer] advance diet, assess for DME- significant apraxia 2. Neuro:s/p right frontal mass resection, pathology per negative however awaiting offical results results, Dilantin for seizures 125q8h, however levels low at 9.1, increased to 150 qh on 07/12/18 and recheck 07/19/18, neuro consult recs appreiacited, will taper Decadron more quickly and consider transition to Depakote given his impaired renal function -will need outpatient neuro f/u 2-4 weeks from discharge to review scans from [facility] and consider carotid US, he is s/p left CEA performed in by Dr. Rosa and currently has right carotid artery stenosis 3. Cardio: pmh HTn and HLD, hx of CHF, continue home med, diuretics on hold per renal recs- medicine consulted 4. Resp: Enedina non-compliant with CPAP, will provide nocturnal 02, will order chest X-ray for coughing today on exam- will order Guaifenesin 5. Endo: pmh DM continue home meds and adjust prn 6. Rheum: pmh gout, continue Uloric 7. DVY ppx: continue heparin 8. GI ppx: omeprazole, patient found to have +C diff , continue Vancomycin, s/p IVF -residual leukocytosis mat be Decadron 9. : admission UA and Ucx negative monitor PVRs- renal consulted for retention and CKD, recs appreciated 10. Pain: patient with headaches, Tylenol and Fiorcet prn 11. Dispo: 08/02/18, slowly progressing towards goals Allergies Coded Allergies: No Known Allergies (Verified , 03/30/18) Vital Signs Vital Signs Date Time Temp Pulse Resp B/P (MAP) Pulse Ox O2 Delivery O2 Flow Rate FiO2 07/15/18 21:09 82 164/74 07/15/18 14:00 97.4 19 97 Room Air Laboratory Data CBC/BMP Laboratory Tests 07/15/18 06:20 Red Blood Count 3.45 L, Mean Corpuscular Volume 86.1, Mean Corpuscular Hemoglobin 27.5, Mean Corpuscular Hemoglobin Concent 32.0, Red Cell Distribution Width 17.4 H, Calcium Level 8.4 L, Aspartate Amino Transf (AST/SGOT) 16, Alanine Aminotransferase (ALT/SGPT) 12, Alkaline Phosphatase 143 H, Total Bilirubin 0.3, Total Protein 6.5, Albumin 2.2 L Labs 24H Laboratory Tests 2 07/15/18 06:20: Nucleated Red Blood Cells % (auto) 0.0, Anion Gap 10, Glomerular Filtration Rate 57.1, Blood Urea Nitrogen 27H, Creatinine 1.33H, Sodium Level 145, Potassium Level 3.3L, Chloride Level 117H, Carbon Dioxide Level 18L, Calcium Level 8.4L, Aspartate Amino Transf (AST/SGOT) 16, Alanine Aminotransferase (ALT/SGPT) 12, Alkaline Phosphatase 143H, Total Bilirubin 0.3, Total Protein 6.5, Albumin 2.2L, Magnesium Level 1.9, Albumin/Globulin Ratio 0.51L 07/15/18 06:21: Bedside Glucose (Misc Panel) 38*L 07/15/18 07:24: Bedside Glucose (Misc Panel) 86 07/15/18 11:49: Bedside Glucose (Misc Panel) 119H 07/15/18 16:36: Bedside Glucose (Misc Panel) 117H Microbiology Microbiology 07/10/18 Gastrointestinal Tract Panel (PCR) - Final, Complete Clostridium Difficile A/B 07/14/18 Respiratory Virus Panel (PCR) (MAYCOL) - Final, Complete Human Rhinovirus/Enterovirus 07/09/18 Urine Culture - Final, Complete Current Medications Current Medications Current Medications Acetaminophen (Tylenol Tab) 650 mg DAILY PRN PO fever; Start 07/09/18 at 21:00 Acetaminophen (Tylenol Tab) 1,000 mg TID PO Last administered on 07/15/18at 21:08; Start 07/09/18 at 21:00 Acetaminophen/ Butalbital/ Caffeine (Fioricet) 1 ea Q6HP PRN PO HEADACHE Last administered on 07/12/18at 12:58; Start 07/12/18 at 11:00 Albuterol/ Ipratropium (Duoneb (Ipr 0.5mg/Alb 2.5mg)) 3 ml BID NEB ; Start 07/14/18 at 21:00; Status UNV Albuterol/ Ipratropium (Duoneb (Ipr 0.5mg/Alb 2.5mg)) 3 ml RBID NEB Last administered on 07/15/18at 21:20; Start 07/10/18 at 08:00 Amlodipine Besylate (Norvasc) 10 mg DAILY PO Last administered on 07/15/18at 09:24; Start 07/10/18 at 09:00 Aspirin (Ecotrin) 81 mg DAILY PO Last administered on 07/15/18at 09:22; Start 07/10/18 at 09:00 Bisacodyl (Dulcolax Suppository) 10 mg DAILYPRN PRN MS CONSTIPATION; Start 07/09/18 at 21:15 Calcitriol (Rocaltrol) 0.25 mcg DAILY PO Last administered on 07/15/18at 09:22; Start 07/10/18 at 09:00 Carvedilol (COReg) 12.5 mg BID PO Last administered on 07/14/18at 09:03; Start 07/09/18 at 21:00; Stop 07/14/18 at 11:08; Status DC Carvedilol (COReg) 25 mg BID PO Last administered on 07/15/18at 21:09; Start 07/14/18 at 21:00 Cod Liver Oil/ Zinc Oxide (Desitin) apply to sacrum BID TOP Last administered on 07/15/18at 21:00; Start 07/10/18 at 09:00 Dexamethasone (Decadron) 2 mg DAILY PO ; Start 07/18/18 at 09:00; Stop 07/23/18 at 08:59 Dexamethasone (Decadron) 2 mg Q12H PO Last administered on 07/15/18at 21:09; Start 07/13/18 at 21:00; Stop 07/17/18 at 20:59 Dexamethasone (Decadron) 4 mg Q12H PO Last administered on 07/13/18at 08:35; Start 07/09/18 at 21:00; Stop 07/13/18 at 20:59; Status DC Dextrose (Dextrose 50%) 25 ml ASDIRECTED PRN IV SEE LABEL COMMENTS; Start 07/09/18 at 21:00 Famotidine (Pepcid) 10 mg BID PO Last administered on 07/15/18at 21:09; Start 07/12/18 at 15:00 Febuxostat (Uloric) 120 mg DAILY PO Last administered on 07/15/18at 09:22; Start 07/10/18 at 09:00 Gemfibrozil (Lopid) 600 mg BID PO Last administered on 07/15/18at 21:08; Start 07/09/18 at 21:00 Glucagon (Glucagon) 1 mg ASDIRECTED PRN SC SEE LABEL COMMENTS; Start 07/09/18 at 21:00 Glucose (Glucose) 16 GM ASDIRECTED PRN PO SEE LABEL COMMENTS; Start 07/09/18 at 21:00 Guaifenesin (Robitussin Tab) 400 mg TID PO Last administered on 07/15/18at 21:09; Start 07/10/18 at 09:00 Guaifenesin (Robitussin Tab) 400 mg TID PO ; Start 07/14/18 at 21:00; Stop 07/14/18 at 21:00; Status DC Heparin Sodium (Porcine) (Heparin) 5,000 units Q8H SQ Last administered on 07/15/18at 21:10; Start 07/09/18 at 22:00 Home Med (Med Rec Complete!) ASDIRECTED XX ; Start 07/09/18 at 23:00; Stop 07/09/18 at 23:00; Status DC Insulin Detemir (Levemir Insulin) 10 units QHS SC Last administered on 07/15/18at 21:08; Start 07/15/18 at 21:00 Insulin Detemir (Levemir Insulin) 20 units QHS SC Last administered on 07/14/18at 22:04; Start 07/09/18 at 21:00; Stop 07/15/18 at 14:20; Status DC Insulin Human Lispro (HumaLOG INSULIN) SEE PROTOCOL TABLE AC SC Last administered on 07/13/18at 12:14; Start 07/10/18 at 07:30 Lactobacillus Acidophilus (Bacid) 1 ea BIDWM PO Last administered on 07/14/18at 08:59; Start 07/11/18 at 08:00; Stop 07/14/18 at 13:09; Status DC Lactobacillus Acidophilus (Bacid) 2 ea BIDWM PO Last administered on 07/15/18at 17:53; Start 07/14/18 at 18:00 Lidocaine (Lidoderm Patch) 1 patch DAILY TD Last administered on 07/15/18at 09:25; Start 07/10/18 at 09:00 Lorazepam (Ativan) 2 mg Q6H PRN IV SEIZURES; Start 07/10/18 at 02:30 Magnesium Hydroxide (Milk Of Magnesia) 30 ml DAILYPRN PRN PO CONSTIPATION; Start 07/09/18 at 21:15 Metronidazole (Flagyl) 500 mg Q8H PO Last administered on 07/11/18at 05:01; Start 07/11/18 at 04:00; Stop 07/11/18 at 07:12; Status DC Non-Formulary Medication ( See Comment Field Below ) REMOVE LIDODERM PATCH DAILY@21 XX Last administered on 07/15/18 21:00; Start 07/09/18 at 21:00 Omeprazole (PriLOSEC) 40 mg QHS PO Last administered on 07/11/18 22:26; Start 07/09/18 at 21:00; Stop 07/12/18 at 14:39; Status DC Ondansetron HCl (Zofran) 4 mg Q6HP PRN PO NAUSEA; Start 07/09/18 at 21:15 Phenytoin (Dilantin Chewable) 125 mg Q8H PO Last administered on 07/12/18 05:49; Start 07/09/18 at 22:00; Stop 07/12/18 at 10:30; Status DC Phenytoin (Dilantin Chewable) 150 mg Q8H PO Last administered on 07/15/18 21:07; Start 07/12/18 at 14:00 Potassium Chloride (Micro-K Extencaps) 20 meq DAILY PO Last administered on 07/15/18 12:28; Start 07/12/18 at 09:00 Senna/Docusate Sodium (Senokot S) 1 tab BID PO Last administered on 07/11/18 22:23; Start 07/10/18 at 09:00; Stop 07/12/18 at 14:39; Status DC Tamsulosin HCl (Flomax) 0.4 mg QHS PO Last administered on 07/15/18at 21:08; Start 07/09/18 at 21:00 Torsemide (Demadex) 50 mg BID@,17 PO ; Start 07/10/18 at 09:00; Stop 07/10/18 at 09:24; Status DC Trazodone HCl (Desyrel) 25 mg QHSP PRN PO INSOMNIA; Start 07/09/18 at 21:00 Vancomycin HCl (First-Vancomycin 50(Firvanq)- 250mg/5ml) 125 mg Q6H PO Last administered on 07/15/18at 17:53; Start 07/11/18 at 06:00 Zinc Oxide (Boudreauxs Butt Paste) sacrum BID TOP ; Start 07/10/18 at 09:00; Stop 07/10/18 at 13:02; Status DC ESTRELLITA STANTON MD Jul 15, 2018 21:55
[2018-07-16] MEDS: VANCOMYCIN ORAL SOL 250MG/5ML ORAL SYRINGE PO SCH ×2 (00:02→05:44)
[2018-07-16] MEDS: PHENYTOIN 50 MG CHEW TABLET PO SCH ×3 (05:44→21:46)
[2018-07-16] MEDS: HEPARIN SOD (PORCINE) 5000 UNITS/ML VIAL SQ SCH ×3 (05:45→21:45)
[2018-07-16 06:00] VITALS: BP 160/72
[2018-07-16 06:46] LABS: HEMATOCRIT 26.5 % (42.0-52.0); HEMOGLOBIN 8.3 g/dl (13.5-17.5); MEAN CORPUSCULAR HEMOGLOBIN 27.8 pg (27.0-33.0); MEAN CORPUSCULAR HGB CONC 31.3 g/dl (32.0-36.5); MEAN CORPUSCULAR VOLUME 88.6 fl (80.0-96.0); PLATELET COUNT, AUTOMATED 165 10^3/uL (150-450); RED BLOOD COUNT 2.99 10^6/uL (4.30-6.10); WHITE BLOOD COUNT 10.2 10^3/uL (4.0-10.0)
[2018-07-16] MEDS: IPRATROPIUM 0.5MG/ALBUTEROL 2.5MG INH SOL UD 3ML (DUONEB)(J7620) NEB SCH ×2 (07:16→20:00)
[2018-07-16] MEDS: HumaLOG INSULIN (NovoLOG) PER UNIT SC SCH ×3 (07:30→16:55)
[2018-07-16 08:15] LABS: ALBUMIN 2.1 GM/DL (3.2-5.2); BILIRUBIN,TOTAL 0.2 MG/DL (0.2-1.0); CALCIUM LEVEL 7.9 MG/DL (8.8-10.2); CREATININE FOR GFR 1.37 MG/DL (0.70-1.30); GLOMERULAR FILTRATION RATE 55.2 (>49); POTASSIUM SERUM 4.1 MEQ/L (3.5-5.1)
[2018-07-16] MEDS: LIDOCAINE 5% (LIDODERM) PATCH TD SCH (09:00)
[2018-07-16] MEDS: DIAPER RELIEF PASTE (DESITIN) 60GM TOP SCH ×2 (09:00→21:47)
[2018-07-16] MEDS: FOLIC ACID 1 MG TAB PO SCH (09:00)
[2018-07-16] MEDS: GEMFIBROZIL 600 MG TAB PO SCH ×2 (09:07→21:42)
[2018-07-16] MEDS: POTASSIUM CHLORIDE 10 MEQ SR TABLET PO SCH (09:07)
[2018-07-16] MEDS: amLODIPine 10 MG TAB PO SCH (09:07)
[2018-07-16] MEDS: LACTOBACILLUS ACIDOPHILUS CAP (BACID) PO SCH ×2 (09:07→18:00)
[2018-07-16] MEDS: FEBUXOSTAT 40 MG TABLET (ULORIC) PO SCH (09:08)
[2018-07-16] MEDS: ACETAMINOPHEN 500 MG TAB PO SCH ×3 (09:08→21:45)
[2018-07-16] MEDS: CALCITRIOL 0.25 MCG CAP (S0169) PO SCH (09:08)
[2018-07-16] MEDS: FAMOTIDINE 20 MG TAB PO SCH ×2 (09:08→21:43)
[2018-07-16] MEDS: guaiFENesin 200 MG TAB PO SCH ×3 (09:08→21:42)
[2018-07-16] MEDS: CARVedilol 12.5 MG TAB PO SCH ×2 (09:09→21:44)
[2018-07-16] MEDS: ASPIRIN 81 MG ENTERIC TAB PO SCH (09:09)
[2018-07-16 11:07] LABS: URIC ACID 6.2 MG/DL (3.5-7.2)
[2018-07-16 14:00] VITALS: BP 138/68
--- NOTE | 2018-07-16 14:11 | IPNPDOC ---
Date Seen The patient was seen on 07/16/18. Progress Note HPI: 68M pnh HTN and DM, left carotid artery stenosis s/p stenting, gout, CAD, ENEDINA, CKD3, recent GIB who initially presented to [facility] on 06/29/18 with reported seizures, arrived with a Arnav Coma Scale of 3, was given loading dose of Dilantin and intubated. CTH showed a right frontal mass so he was transferred to [facility] in [place], [place] for further work-up. At [place] MRI on 06-30-18 showed a 3cm by 3cm right frontal lobe lesion with a hemorrhagic component, possible neoplam or less likley transformation of an infarction. He was found to have leukocytosis which was thought to be from seizure activity and remained afebrile. He had significant hyponatremia, acute on chronic CKD and elevated blood sugars managed with insulin. He was evaluated by neurosurgery and had a resection of his right frontal mass on 07/04/18 after which he was maintained on a Decadron taper and continued on Dilantin for seizure prophylaxis. He was evaluated by therapy and noted to have significant impairment in his ADLs and gait, and was deemed medically appropriate for transfer to [facility] ARU on 07-09-18, as per Dr Young, with pathology pending from his recent tumor resection. Pt reports loose stools still occurring. 4 yesterday. None documented today. denies abdominal pain, N/V. Appetite is decreased. Has had some cough, non productive. Denies dyspnea. Slid OOB last night and was found sitting on floor at bedside. Denies any fevers, chills, weakness, fatigue, STEPHENS, CP, palpitations. PE: GEN: 68yoM, appears stated age. Alert and oriented x 3. HEENT: Normocephalic, healing craniotomy scar. Pupils are equal, round, and reactive to light. Sclera are nonicteric. Conjunctiva without injection. No facial asymmetry. Moist mucous membranes. CHEST: Regular rate and rhythm, +S1, +S2 LUNGS: Decreased BS but clear bilaterally. No wheezes, rales, or rhonchi appreciated. ABD: Round, soft, non-tender, non-distended. +Bowel sounds throughout. EXT: No lower extremity edema appreciated. SKIN: [place], dry, warm. No rashes. A&P: 1. Frontal cranial mass status post resection at [facility] in [place] on 07/05/2018. Mgmt as per ARU. PT/OT/ST as per ARU Pain control as per ARU DVT prophylaxis as per ARU, SQ Heparin. Outpt F/U with Neurosurgery. Continue on Decadron taper as per Neurosurgery. Continue on Dilantin seizure prophylaxis as per Neurosurgery. Dilantin dose adjusted as per attending/Neuro to 150 Q8h, repeat Dilantin level ordered . Seen by Neurology appreciate any further recommendations. Seizure precautions. Slid OOB 07/14/18- CT head completed with no acute changes. 2. C diff. positive BM x 2 yesterday, 3 toda Afebrile. WBC 10.2. PO Vanco changed to Dificid. Bacid 2 tab BID. HOLD Bowel care. HOLD PPI. IVF x 1 liter 07/12/18 as per Attending. 3. Hypokalemia. po supplement. Mag level 1.8 07/14/18. K WNL this AM BMP in AM. Monitor. 4. Chronic kidney disease3. Nephrology following. SCr 1.37. Diuretic on hold. 5. Gout. On Uloric. 6. Hypertension. Norvasc 10 mg daily, carvedilol 25 mg BID. 7. Coronary artery disease. ASA 8. Carotid stenosis, status post endarterectomy. 9. Congestive heart failure. No sign of fluid overload. Diuretic is on hold. Nephrology following. 10. Diabetes. Hypoglycemia with BS 38 07/15. Diet changed to regular mech soft, thin liq related to poor po intake. Levemir dose decreased from 20 to 10u HS 07/15/18 SSI BS 117-159. Monitor. 11. Benign prostatic hypertrophy (BPH). Flomax. 12. Cough/URI Afebrile. CXR 07/14/18 NAD. respiratory panel 07/14/18 RESPIRATORY PANEL Final POSITIVE by MULTIPLEXED NUCLEIC ACID PCR Organism 1 HUMAN RHINOVIRUS/ENTEROVIRUS CBC in AM Encourage I/S. Monitor. 13. Anemia. Normocytic. Likely related to chronic disease/CKD. Trending 8-9. Fe studies, B12, folate 07/14/18. Folate supplement added. Monitor need for transfusion. 14. GI prophylaxis. HOLD PPI. Continue pepcid. VS, I&O, 24H, Fishbone Vital Signs/I&O Vital Signs Date Time Temp Pulse Resp B/P (MAP) Pulse Ox O2 Delivery O2 Flow Rate FiO2 07/16/18 09:09 76 150/78 07/16/18 06:00 96.9 19 96 Room Air I&O- Last 24 Hours up to 6 AM 07/16/18 06:00 Intake Total 720 ml Output Total 850 ml Balance -130 ml Laboratory Data 24H LABS Laboratory Tests 2 07/15/18 16:36: Bedside Glucose (Misc Panel) 117H 07/16/18 05:29: Bedside Glucose (Misc Panel) 130H 07/16/18 06:25: Nucleated Red Blood Cells % (auto) 0.0, Anion Gap 11, Glomerular Filtration Rate 55.2, Blood Urea Nitrogen 21H, Creatinine 1.37H, Sodium Level 141, Potassium Level 4.1#, Chloride Level 113H, Carbon Dioxide Level 17L, Calcium Level 7.9L, Aspartate Amino Transf (AST/SGOT) 11, Alanine Aminotransferase (ALT/SGPT) 11L, Alkaline Phosphatase 133H, Total Bilirubin 0.2, Uric Acid 6.2, Total Protein 6.0L, Albumin 2.1L, Albumin/Globulin Ratio 0.54L 07/16/18 11:34: Bedside Glucose (Misc Panel) 159H CBC/BMP Laboratory Tests 07/16/18 06:25 Red Blood Count 2.99 L, Mean Corpuscular Volume 88.6, Mean Corpuscular Hemoglobin 27.8, Mean Corpuscular Hemoglobin Concent 31.3 L, Red Cell Distribution Width 17.8 H, Calcium Level 7.9 L, Aspartate Amino Transf (AST/SGOT) 11, Alanine Aminotransferase (ALT/SGPT) 11 L, Alkaline Phosphatase 133 H, Total Bilirubin 0.2, Uric Acid 6.2, Total Protein 6.0 L, Albumin 2.1 L Microbiology Microbiology 07/10/18 Gastrointestinal Tract Panel (PCR) - Final, Complete Clostridium Difficile A/B 07/14/18 Respiratory Virus Panel (PCR) (MAYCOL) - Final, Complete Human Rhinovirus/Enterovirus 07/09/18 Urine Culture - Final, Complete Saadia Campbell Jul 16, 2018 14:11
[2018-07-16] MEDS: FIDAXOMICIN 200 MG TAB (DIFICID) PO SCH ×2 (15:22→21:44)
[2018-07-16 20:00] VITALS: BP 152/60
[2018-07-16] MEDS: TAMSULOSIN 0.4 MG CAP PO SCH (21:44)
[2018-07-16] MEDS: traZODone 25MG PER 1/2 TABLET PO PRN (21:44)
[2018-07-16] MEDS: **NOTE PATIENT COMMENT** MISC XX SCH (21:46)
[2018-07-16] MEDS: LEVEMIR (INSULIN DETEMIR) 1 UNITS/0.01ML SC SCH (21:49)
[2018-07-17] MEDS: PHENYTOIN 50 MG CHEW TABLET PO SCH ×3 (05:39→21:58)
[2018-07-17] MEDS: HEPARIN SOD (PORCINE) 5000 UNITS/ML VIAL SQ SCH ×3 (05:40→22:00)
[2018-07-17 06:00] VITALS: BP 150/84
[2018-07-17] MEDS: IPRATROPIUM 0.5MG/ALBUTEROL 2.5MG INH SOL UD 3ML (DUONEB)(J7620) NEB SCH ×2 (07:58→19:44)
[2018-07-17 09:32] LABS: HEMATOCRIT 30.8 % (42.0-52.0); HEMOGLOBIN 9.7 g/dl (13.5-17.5); MEAN CORPUSCULAR HGB CONC 31.5 g/dl (32.0-36.5); MEAN CORPUSCULAR VOLUME 88.8 fl (80.0-96.0); PLATELET COUNT, AUTOMATED 243 10^3/uL (150-450); RED BLOOD COUNT 3.47 10^6/uL (4.30-6.10); WHITE BLOOD COUNT 12.1 10^3/uL (4.0-10.0)
[2018-07-17 10:04] LABS: CALCIUM LEVEL 8.5 MG/DL (8.8-10.2); CREATININE FOR GFR 1.6 MG/DL (0.70-1.30); GLOMERULAR FILTRATION RATE 46.1 (>49); POTASSIUM SERUM 4.5 MEQ/L (3.5-5.1)
[2018-07-17] MEDS: HumaLOG INSULIN (NovoLOG) PER UNIT SC SCH ×3 (10:17→17:30)
[2018-07-17] MEDS: POTASSIUM CHLORIDE 10 MEQ SR TABLET PO SCH (10:19)
[2018-07-17] MEDS: FIDAXOMICIN 200 MG TAB (DIFICID) PO SCH ×2 (10:19→21:57)
[2018-07-17] MEDS: LIDOCAINE 5% (LIDODERM) PATCH TD SCH (10:19)
[2018-07-17] MEDS: FEBUXOSTAT 40 MG TABLET (ULORIC) PO SCH (10:19)
[2018-07-17] MEDS: CALCITRIOL 0.25 MCG CAP (S0169) PO SCH (10:20)
[2018-07-17] MEDS: FOLIC ACID 1 MG TAB PO SCH (10:20)
[2018-07-17] MEDS: guaiFENesin 200 MG TAB PO SCH ×3 (10:20→21:57)
[2018-07-17] MEDS: ACETAMINOPHEN 500 MG TAB PO SCH ×3 (10:20→21:58)
[2018-07-17] MEDS: CARVedilol 12.5 MG TAB PO SCH ×2 (10:21→21:59)
[2018-07-17] MEDS: GEMFIBROZIL 600 MG TAB PO SCH ×2 (10:21→21:59)
[2018-07-17] MEDS: ASPIRIN 81 MG ENTERIC TAB PO SCH (10:21)
[2018-07-17] MEDS: LACTOBACILLUS ACIDOPHILUS CAP (BACID) PO SCH ×2 (10:21→18:00)
[2018-07-17] MEDS: FAMOTIDINE 20 MG TAB PO SCH ×2 (10:21→21:58)
[2018-07-17] MEDS: amLODIPine 10 MG TAB PO SCH (10:21)
[2018-07-17] MEDS: DIAPER RELIEF PASTE (DESITIN) 60GM TOP SCH ×2 (10:22→22:00)
--- NOTE | 2018-07-17 12:23 | IPN ---
DATE: 07/16/2018 SUBJECTIVE: Patient is seen and examined at the bedside. He is very frustrated by the diarrhea, is having stool incontinence. Reports the diarrhea is very voluminous and watery. I discussed with Dr. Young to change his oral vancomycin over to Dificid. Temperature 97.9, pulse 72, respiratory rate 20, blood pressure 138/68, saturating 99% on room air. Intake yesterday was 660, urine output yesterday was 975. Weight on the bed scale today is 96.9 kg. General: The patient is seen sitting at the edge of the bed. He has just completed some physical therapy. He is awake, alert, oriented, in no acute distress. He is in poor spirits. Extraocular muscles are intact. Tongue is moist. Neck veins are not elevated. Cardiac: S1, S2, regular rate and rhythm. Lungs: Clear breath sounds bilaterally. Abdomen: Soft and nontender. There were bowel sounds are present. Extremities: Negative for edema. Neurologic: He is oriented. No focal deficits. Psychiatric: Appropriate mood but does seem depressed. LABORATORY: White count 10.2, hemoglobin 8.3, platelets 165. Sodium 141, potassium 4.1, bicarbonate 17, creatinine 1.3. INPATIENT MEDICATIONS: Reviewed by myself. His oral vancomycin was switched to Dificid 200 mg by mouth twice a day. His insulin was adjusted per primary team. Remainder of medications are unchanged from prior. PROBLEMS: 1. Clostridium difficile colitis diarrhea. Patient is still having a significant number of stools, very watery in nature. It is day #5 of vancomycin. I suggest to switch to Dificid 200 mg by mouth twice a day and have discussed the same with Dr. Young. No need for IV fluids at this time. He is tolerating oral intake. 2. Non-anion gap metabolic acidosis. Serum bicarbonate is down to 17. It is due to his significant diarrhea. We are switching the vancomycin to Dificid. He may need some bicarbonate-containing fluids if the diarrhea does not start to improve in the coming 24 hours. 3. Chronic kidney disease stage IV. Renal function is better than his usual baseline. His diuretics continue to be held given the Clostridium difficile colitis, and his volume status is presently acceptable. 4. Hypertension. Blood pressures are stable and no changes are being made. 5. Hypokalemia. This has resolved. His serum potassium has now been greater than 20. I am going to discontinue his oral potassium supplement.
--- NOTE | 2018-07-17 12:25 | IPNPDOC ---
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 REVIEW OF SYSTEMS: The following is a completed review of systems and has been reviewed. Review of systems otherwise unremarkable. PAIN: Patient self reports bilateral chronic knee pain EYES: Negative for recent vision changes EARS, NOSE, & THROAT: dysphagia (resolved) denies, rhinorrhea CARDIOVASCULAR: +sternal pain, otherwise no palpitations PULMONARY: Negative. Denies shortness of breath, + cough GASTROINTESTINAL:+ diarrhea GENITOURINARY: Negative for dysuria or hematuria, + retention (improving) MUSCULOSKELETAL: bilateral knee OA vs gout NEUROLOGICAL: s/p right frontal lobe resection , seizures HEMATOLOGICAL: Negative SKIN: sacral ulcer PSYCHIATRIC: Unremarkable All other review of systems found to be negative. PHYSICAL EXAMINATION: VITAL SIGNS: Please see below. GENERAL: Pleasant and cooperative. No acute distress. HEENT: PERRL. Extraocular movements intact. Clear conjunctiva, left facial droop (eyebrow sparing) CARDIOVASCULAR: Regular rate and rhythm. No murmurs, rubs, or gallops +TTP sternal palpation LUNGS: Clear to auscultation bilaterally. No wheezes. No rhonchi ABDOMEN: Soft, nontender, nondistended. Positive bowel sounds. Normal active bowel sound NEUROLOGICAL: Alert and oriented times to self and place, not time Cranial nerves II through XII grossly intact. Sensation grossly intact able to follow 2-step commands, however unable to perform Luria, +Apraxia EXTREMITIES:5\5 strength bilateral upper extremities. >3/5 bilateral hip flexors and knee extensors, 5/5 bilateral ankle DF and EHL Bilateral knees warm to touch with effusion SKIN: sacral ulcer, right frontal craniotonomy incision c/d/i ASSESSMENT:68-year-old M with past medical history of ENEDINA, HTN, CAD who presents status post right frontal mass resection with seizures. PLAN: 1. rehab: [facility], [employer] advance diet, assess for DME- significant apraxia, able to participate more in therapy 2. Neuro:s/p right frontal mass resection, pathology per negative however awaiting offical results results, Dilantin for seizures 125q8h, however levels low at 9.1, increased to 150 qh on 07/12/18 and recheck 07/19/18, neuro consult recs appreciated, will taper Decadron more quickly and consider transition to Depakote given his impaired renal function -will need outpatient neuro f/u 2-4 weeks from discharge to review scans from [facility] and consider carotid US, he is s/p left CEA performed in by Dr. Rosa and currently has right carotid artery stenosis 3. Cardio: pmh HTn and HLD, hx of CHF, continue home med, diuretics on hold per renal recs- medicine consulted 4. Resp: Enedina non-compliant with CPAP, will provide nocturnal 02, will order chest X-ray for coughing today on exam- continue Guaifenesin and duonebs 5. Endo: pmh DM continue home meds and adjust prn 6. Rheum: pmh gout, continue Uloric 7. DVY ppx: continue heparin 8. GI ppx: omeprazole, patient found to have +C diff , given persistent diarrhea on Vancomycin, will switch to Difficit 200mg BID x 10 days -however residual leukocytosis may be from Decadron 9. : admission UA and Ucx negative monitor PVRs- renal consulted for retention and CKD, recs appreciated 10. Pain: patient with headaches, Tylenol and Fiorcet prn 11. Dispo: 08/02/18, slowly progressing towards goals Allergies Coded Allergies: No Known Allergies (Verified , 03/30/18) Vital Signs Vital Signs Date Time Temp Pulse Resp B/P (MAP) Pulse Ox O2 Delivery O2 Flow Rate FiO2 07/17/18 10:21 78 150/84 07/17/18 06:00 98.9 18 99 Room Air Laboratory Data CBC/BMP Laboratory Tests 07/17/18 09:22 Red Blood Count 3.47 L, Mean Corpuscular Volume 88.8, Mean Corpuscular Hemoglobin 28.0, Mean Corpuscular Hemoglobin Concent 31.5 L, Red Cell Distribution Width 18.1 H, Calcium Level 8.5 L Labs 24H Laboratory Tests 2 07/16/18 16:37: Bedside Glucose (Misc Panel) 99 07/16/18 20:23: Bedside Glucose (Misc Panel) 108 07/17/18 06:55: Bedside Glucose (Misc Panel) 108 07/17/18 09:22: Nucleated Red Blood Cells % (auto) 0.0, Anion Gap 10, Glomerular Filtration Rate 46.1L, Blood Urea Nitrogen 22H, Creatinine 1.60H, Sodium Level 142, Potassium Level 4.5, Chloride Level 114H, Carbon Dioxide Level 18L, Calcium Level 8.5L 07/17/18 11:59: Bedside Glucose (Misc Panel) 111 Microbiology Microbiology 07/10/18 Gastrointestinal Tract Panel (PCR) - Final, Complete Clostridium Difficile A/B 07/14/18 Respiratory Virus Panel (PCR) (MAYCOL) - Final, Complete Human Rhinovirus/Enterovirus 07/09/18 Urine Culture - Final, Complete Current Medications Current Medications Current Medications Acetaminophen (Tylenol Tab) 650 mg DAILY PRN PO fever; Start 07/09/18 at 21:00 Acetaminophen (Tylenol Tab) 1,000 mg TID PO Last administered on 07/17/18 10:20; Start 07/09/18 at 21:00 Acetaminophen/ Butalbital/ Caffeine (Fioricet) 1 ea Q6HP PRN PO HEADACHE Last administered on 07/12/18 12:58; Start 07/12/18 at 11:00 Albuterol/ Ipratropium (Duoneb (Ipr 0.5mg/Alb 2.5mg)) 3 ml BID NEB ; Start 07/14/18 at 21:00; Status UNV Albuterol/ Ipratropium (Duoneb (Ipr 0.5mg/Alb 2.5mg)) 3 ml RBID NEB Last administered on 07/17/18at 07:58; Start 07/10/18 at 08:00 Amlodipine Besylate (Norvasc) 10 mg DAILY PO Last administered on 07/17/18 10:21; Start 07/10/18 at 09:00 Aspirin (Ecotrin) 81 mg DAILY PO Last administered on 07/17/18 10:21; Start 07/10/18 at 09:00 Bisacodyl (Dulcolax Suppository) 10 mg DAILYPRN PRN RI CONSTIPATION; Start 07/09/18 at 21:15 Calcitriol (Rocaltrol) 0.25 mcg DAILY PO Last administered on 07/17/18 10:20; Start 07/10/18 at 09:00 Carvedilol (COReg) 12.5 mg BID PO Last administered on 07/14/18 09:03; Start 07/09/18 at 21:00; Stop 07/14/18 at 11:08; Status DC Carvedilol (COReg) 25 mg BID PO Last administered on 07/17/18 10:21; Start 07/14/18 at 21:00 Cod Liver Oil/ Zinc Oxide (Desitin) apply to sacrum BID TOP Last administered on 07/17/18 10:22; Start 07/10/18 at 09:00 Dexamethasone (Decadron) 2 mg DAILY PO Last administered on 07/17/18 10:22; Start 07/16/18 at 09:00; Stop 07/21/18 at 08:59 Dexamethasone (Decadron) 2 mg DAILY PO ; Start 07/18/18 at 09:00; Stop 07/18/18 at 09:00; Status DC Dexamethasone (Decadron) 2 mg Q12H PO Last administered on 07/15/18at 21:09; Start 07/13/18 at 21:00; Stop 07/15/18 at 21:55; Status DC Dexamethasone (Decadron) 4 mg Q12H PO Last administered on 07/13/18at 08:35; Start 07/09/18 at 21:00; Stop 07/13/18 at 20:59; Status DC Dextrose (Dextrose 50%) 25 ml ASDIRECTED PRN IV SEE LABEL COMMENTS; Start 07/09/18 at 21:00 Famotidine (Pepcid) 10 mg BID PO Last administered on 07/17/18at 10:21; Start 07/12/18 at 15:00 Febuxostat (Uloric) 120 mg DAILY PO Last administered on 07/17/18 10:19; Start 07/10/18 at 09:00 Fidaxomicin (Dificid) 200 mg BID PO Last administered on 07/17/18 10:19; Start 07/16/18 at 11:45; Stop 07/25/18 at 21:01 Folic Acid (Folic Acid) 1 mg DAILY PO Last administered on 07/17/18 10:20; Start 07/16/18 at 09:00 Gemfibrozil (Lopid) 600 mg BID PO Last administered on 07/17/18 10:21; Start 07/09/18 at 21:00 Glucagon (Glucagon) 1 mg ASDIRECTED PRN SC SEE LABEL COMMENTS; Start 07/09/18 at 21:00 Glucose (Glucose) 16 GM ASDIRECTED PRN PO SEE LABEL COMMENTS; Start 07/09/18 at 21:00 Guaifenesin (Robitussin Tab) 400 mg TID PO Last administered on 07/17/18at 1 0:20; Start 07/10/18 at 09:00 Guaifenesin (Robitussin Tab) 400 mg TID PO ; Start 07/14/18 at 21:00; Stop 07/14/18 at 21:00; Status DC Heparin Sodium (Porcine) (Heparin) 5,000 units Q8H SQ Last administered on 07/17/18at 05:40; Start 07/09/18 at 22:00 Home Med (Med Rec Complete!) ASDIRECTED XX ; Start 07/09/18 at 23:00; Stop 07/09/18 at 23:00; Status DC Insulin Detemir (Levemir Insulin) 10 units QHS SC Last administered on 07/16/18at 21:49; Start 07/15/18 at 21:00 Insulin Detemir (Levemir Insulin) 20 units QHS SC Last administered on 07/14/18at 22:04; Start 07/09/18 at 21:00; Stop 07/15/18 at 14:20; Status DC Insulin Human Lispro (HumaLOG INSULIN) SEE PROTOCOL TABLE AC SC Last administer ed on 07/16/18at 12:00; Start 07/10/18 at 07:30 Lactobacillus Acidophilus (Bacid) 1 ea BIDWM PO Last administered on 07/14/18at 08:59; Start 07/11/18 at 08:00; Stop 07/14/18 at 13:09; Status DC Lactobacillus Acidophilus (Bacid) 2 ea BIDWM PO Last administered on 07/17/18at 10:21; Start 07/14/18 at 18:00 Lidocaine (Lidoderm Patch) 1 patch DAILY TD Last administered on 07/17/18at 10:19; Start 07/10/18 at 09:00 Lorazepam (Ativan) 2 mg Q6H PRN IV SEIZURES; Start 07/10/18 at 02:30 Magnesium Hydroxide (Milk Of Magnesia) 30 ml DAILYPRN PRN PO CONSTIPATION; Start 07/09/18 at 21:15 Metronidazole (Flagyl) 500 mg Q8H PO Last administered on 07/11/18 05:01; Start 07/11/18 at 04:00; Stop 07/11/18 at 07:12; Status DC Non-Formulary Medication ( See Comment Field Below ) REMOVE LIDODERM PATCH DAILY@21 XX Last administered on 07/16/18at 21:46; Start 07/09/18 at 21:00 Omeprazole (PriLOSEC) 40 mg QHS PO Last administered on 07/11/18 22:26; Start 07/09/18 at 21:00; Stop 07/12/18 at 14:39; Status DC Ondansetron HCl (Zofran) 4 mg Q6HP PRN PO NAUSEA; Start 07/09/18 at 21:15 Phenytoin (Dilantin Chewable) 125 mg Q8H PO Last administered on 07/12/18at 05:49; Start 07/09/18 at 22:00; Stop 07/12/18 at 10:30; Status DC Phenytoin (Dilantin Chewable) 150 mg Q8H PO Last administered on 07/17/18at 05:39; Start 07/12/18 at 14:00 Potassium Chloride (Micro-K Extencaps) 20 meq DAILY PO Last administered on 07/17/18 10:19; Start 07/12/18 at 09:00; Stop 07/17/18 at 11:48; Status DC Senna/Docusate Sodium (Senokot S) 1 tab BID PO Last administered on 07/11/18at 22:23; Start 07/10/18 at 09:00; Stop 07/12/18 at 14:39; Status DC Tamsulosin HCl (Flomax) 0.4 mg QHS PO Last administered on 07/16/18 21:44; Start 07/09/18 at 21:00 Torsemide (Demadex) 50 mg BID@ PO ; Start 07/10/18 at 09:00; Stop 07/10/18 at 09:24; Status DC Trazodone HCl (Desyrel) 25 mg QHSP PRN PO INSOMNIA Last administered on 07/16/18 21:44; Start 07/09/18 at 21:00 Vancomycin HCl (First-Vancomycin 50(Firvanq)- 250mg/5ml) 125 mg Q6H PO Last administered on 07/16/18at 05:44; Start 07/11/18 at 06:00; Stop 07/16/18 at 1 1:37; Status DC Zinc Oxide (Boudreauxs Butt Paste) sacrum BID TOP ; Start 07/10/18 at 09:00; Stop 07/10/18 at 13:02; Status DC ESTRELLITA STANTON MD Jul 17, 2018 12:25
[2018-07-17 14:00] VITALS: BP 162/78
[2018-07-17] MEDS: traZODone 25MG PER 1/2 TABLET PO PRN (21:57)
[2018-07-17] MEDS: TAMSULOSIN 0.4 MG CAP PO SCH (21:58)
[2018-07-17 22:00] VITALS: BP 180/100
[2018-07-17] MEDS: **NOTE PATIENT COMMENT** MISC XX SCH (22:00)
[2018-07-17] MEDS: LEVEMIR (INSULIN DETEMIR) 1 UNITS/0.01ML SC SCH (22:14)
[2018-07-18] MEDS: PHENYTOIN 50 MG CHEW TABLET PO SCH ×3 (05:44→21:17)
[2018-07-18] MEDS: HEPARIN SOD (PORCINE) 5000 UNITS/ML VIAL SQ SCH ×3 (05:44→21:17)
[2018-07-18 06:11] VITALS: BP 142/60
--- NOTE | 2018-07-18 07:05 | IPN ---
DATE: 07/17/2018 Mr. Isaac is seen this morning on his bedside. He was admitted to [facility] for acute rehab following his craniotomy and resection of frontal lobe mass. He has known history of multiple chronic medical problems including diabetes, recurrent gout, congestive heart failure, hypertension, diabetes and chronic kidney disease. He has developed diarrhea during this hospitalization and was found to have Clostridium difficile (C diff) colitis for which he was treated with oral vancomycin without any improvement and yesterday he was switched to Dificid 200 mg twice a day. He is still quite weak and discouraged due to severe diarrhea yesterday. He denies any nausea or vomiting. PHYSICAL EXAMINATION: Temperature 98.9 degrees Fahrenheit, heart rate 78 per minute and respiratory rate 18 per minute. Blood pressure 150/84 mmHg and oxygen saturation 99% on room air. His craniotomy incision is healed very well. He has no oral thrush or ulcers and neck veins are not abnormally distended. Heart: Sounds are regular and lungs clear to auscultation. Abdomen is soft and nontender and bowel sounds are normal. Extremities have no cyanosis or clubbing. Neurologically he is awake, alert and at his baseline mentation. Intake and output records from yesterday show total intake 880 and output 1200 mL with 13 bowel movements in 24 hours. Today's labs show sodium 142, potassium 4.5, CO2 18, BUN 22 and creatinine 1.60, glucose 132 and calcium 8.5. WBC count is 12.1, hemoglobin 9.7 and hematocrit 30.8. Platelets 243. PROBLEMS: 1. Acute on chronic kidney disease. The patient does have significant chronic kidney disease even at baseline. At this point, his kidney function seems to be doing very well. He did have some urinary retention which could have been the cause of his worsening kidney function previously. Now he is being monitored with bladder scans and urinary retention has improved. His electrolytes are stable, and we will continue to monitor closely. 2. Clostridium difficile colitis. The patient is now on Dificid 200 mg twice a day and diarrhea seems to be much better today compared with yesterday. He does not seem to be significantly dehydrated, and we will continue to encourage oral intake of liquids. 3. Metabolic acidosis. The patient has mild metabolic acidosis related to diarrhea which has already improved so we will not consider putting him on bicarbonate. We will recheck his chemistry tomorrow as it is likely to improve by itself. 4. Anemia. This is a chronic issue and he did have iron deficiency in the past. We have treated him with multiple doses of intravenous iron. His iron studies were checked on 07/14/2018 and iron level was 40. We will continue to monitor without any intravenous iron at this point. 5. Gout. The patient has a history of recurrent gout and has been on Uloric 120 mg daily. We will continue the same as his uric acid level was 6.2 just yesterday. 6. Hypertension. Blood pressure is reasonably well controlled, and we will continue to monitor and adjust medication as needed. 7. Status post frontal lobe mass resection. The patient is currently on Decadron 2 mg daily and continues with rehab. 8. Hyperparathyroidism. The patient has known history of secondary hyperparathyroidism and remains on calcitriol 0.25 mcg daily. MTDD
[2018-07-18] MEDS: IPRATROPIUM 0.5MG/ALBUTEROL 2.5MG INH SOL UD 3ML (DUONEB)(J7620) NEB SCH ×2 (08:04→21:04)
[2018-07-18] MEDS: LACTOBACILLUS ACIDOPHILUS CAP (BACID) PO SCH ×2 (08:39→16:37)
[2018-07-18] MEDS: HumaLOG INSULIN (NovoLOG) PER UNIT SC SCH ×3 (08:39→17:30)
[2018-07-18] MEDS: CALCITRIOL 0.25 MCG CAP (S0169) PO SCH (08:39)
[2018-07-18] MEDS: FEBUXOSTAT 40 MG TABLET (ULORIC) PO SCH (08:39)
[2018-07-18] MEDS: FIDAXOMICIN 200 MG TAB (DIFICID) PO SCH ×2 (08:39→21:17)
[2018-07-18] MEDS: guaiFENesin 200 MG TAB PO SCH ×3 (08:39→21:17)
[2018-07-18] MEDS: FOLIC ACID 1 MG TAB PO SCH (08:40)
[2018-07-18] MEDS: GEMFIBROZIL 600 MG TAB PO SCH ×2 (08:40→21:18)
[2018-07-18] MEDS: ACETAMINOPHEN 500 MG TAB PO SCH ×3 (08:40→21:18)
[2018-07-18] MEDS: amLODIPine 10 MG TAB PO SCH (08:40)
[2018-07-18] MEDS: FAMOTIDINE 20 MG TAB PO SCH ×2 (08:40→21:18)
[2018-07-18] MEDS: LIDOCAINE 5% (LIDODERM) PATCH TD SCH (08:41)
[2018-07-18] MEDS: DIAPER RELIEF PASTE (DESITIN) 60GM TOP SCH ×2 (08:41→21:16)
[2018-07-18] MEDS: ASPIRIN 81 MG ENTERIC TAB PO SCH (08:41)
[2018-07-18] MEDS: CARVedilol 12.5 MG TAB PO SCH ×2 (08:41→21:19)
[2018-07-18 14:18] VITALS: BP 128/64
[2018-07-18] MEDS: LEVEMIR (INSULIN DETEMIR) 1 UNITS/0.01ML SC SCH (21:07)
[2018-07-18] MEDS: TAMSULOSIN 0.4 MG CAP PO SCH (21:18)
[2018-07-18] MEDS: **NOTE PATIENT COMMENT** MISC XX SCH (21:19)
[2018-07-18 21:30] VITALS: BP 198/82
[2018-07-18 22:30] VITALS: BP 162/62
[2018-07-19] MEDS: HEPARIN SOD (PORCINE) 5000 UNITS/ML VIAL SQ SCH ×3 (05:26→22:09)
[2018-07-19] MEDS: PHENYTOIN 50 MG CHEW TABLET PO SCH ×3 (05:27→22:06)
--- NOTE | 2018-07-19 05:30 | IPN ---
DATE: 07/18/2018 Mr. Isaac is seen this morning on his bedside. He has been admitted for acute rehabilitation following craniotomy and frontal lobe resection for a presumed mass which turned out to be a benign tissue with calcification. In any event, he has developed Clostridium difficile (C. diff) colitis and had excessive amount of diarrhea which did not respond to oral vancomycin. He has been now switched to Dificid 200 mg twice a day and diarrhea was much better yesterday. However he reports a couple of loose stools again this morning. He denies any nausea or vomiting but reports very poor appetite. He is weak but able to walk with some assistance and is participating with rehabilitation. PHYSICAL EXAMINATION: Temperature 98.2 degrees Fahrenheit, heart rate 72 per minute and rate 18 per minute. Blood pressure 142/60 mmHg and oxygen saturation 97% on room air. HEENT: His surgical incision is healing nicely on his scalp. Neck is supple and without jugular venous distention (JVD) or thyroid enlargement. There is no oral thrush or ulcers. HEART: Sounds are regular. LUNGS: Lungs clear to auscultation. ABDOMEN: Soft and nontender and without a palpable organomegaly. Bowel sounds are normal. EXTREMITIES: Extremities have no cyanosis or clubbing. NEUROLOGICAL: Neurologically he is awake and at his baseline mentation. No labs have been done today. PROBLEMS: 1. Acute renal failure superimposed on chronic kidney disease. The patient had a stable renal function with creatinine between 1.3 and 1.6 mg/dl for last 4 days. He had excessive amount of diarrhea. However, it has now improved so we will not put him on any IV fluid. He is tolerating oral intake. 2. Clostridium difficile (C. diff). Diarrhea is improving with Dificid which will be continued and the patient is being encouraged to include yogurt in his meals. 3. Metabolic acidosis. He has mild metabolic acidosis related to diarrhea which is likely to improve and we will not use sodium bicarbonate. His renal profile will be checked tomorrow morning. 4. History of gout. The patient is currently asymptomatic with uric acid level 6.2 on July 16. He remains on Uloric 120 mg daily. 5. Anemia. The patient does have history of iron deficiency anemia with chronic gastrointestinal (GI) bleed. At present his anemia is stable and complete blood count (CBC) will be checked again tomorrow morning.
[2018-07-19 05:53] VITALS: BP 158/68
[2018-07-19 06:28] LABS: HEMATOCRIT 26.5 % (42.0-52.0); HEMOGLOBIN 8.3 g/dl (13.5-17.5); MEAN CORPUSCULAR HGB CONC 31.3 g/dl (32.0-36.5); MEAN CORPUSCULAR VOLUME 89.5 fl (80.0-96.0); PLATELET COUNT, AUTOMATED 186 10^3/uL (150-450); RED BLOOD COUNT 2.96 10^6/uL (4.30-6.10)
[2018-07-19 06:58] LABS: ALBUMIN 2.1 GM/DL (3.2-5.2); CALCIUM LEVEL 7.8 MG/DL (8.8-10.2); CREATININE FOR GFR 1.78 MG/DL (0.70-1.30); GLOMERULAR FILTRATION RATE 40.8 (>49); PHOSPHORUS LEVEL 3.5 MG/DL (2.5-4.9); POTASSIUM SERUM 4.1 MEQ/L (3.5-5.1)
[2018-07-19] MEDS: guaiFENesin 200 MG TAB PO SCH ×3 (08:39→22:06)
[2018-07-19] MEDS: amLODIPine 10 MG TAB PO SCH (08:39)
[2018-07-19] MEDS: CALCITRIOL 0.25 MCG CAP (S0169) PO SCH (08:39)
[2018-07-19] MEDS: FEBUXOSTAT 40 MG TABLET (ULORIC) PO SCH (08:39)
[2018-07-19] MEDS: LACTOBACILLUS ACIDOPHILUS CAP (BACID) PO SCH ×2 (08:39→17:37)
[2018-07-19] MEDS: FIDAXOMICIN 200 MG TAB (DIFICID) PO SCH ×2 (08:39→22:06)
[2018-07-19] MEDS: ASPIRIN 81 MG ENTERIC TAB PO SCH (08:40)
[2018-07-19] MEDS: FAMOTIDINE 20 MG TAB PO SCH ×2 (08:40→22:07)
[2018-07-19] MEDS: CARVedilol 12.5 MG TAB PO SCH ×2 (08:40→22:05)
[2018-07-19] MEDS: ACETAMINOPHEN 500 MG TAB PO SCH ×3 (08:40→22:09)
[2018-07-19] MEDS: FOLIC ACID 1 MG TAB PO SCH (08:40)
[2018-07-19] MEDS: GEMFIBROZIL 600 MG TAB PO SCH ×2 (08:40→22:07)
[2018-07-19] MEDS: HumaLOG INSULIN (NovoLOG) PER UNIT SC SCH ×3 (08:41→17:26)
[2018-07-19] MEDS: LIDOCAINE 5% (LIDODERM) PATCH TD SCH (08:41)
[2018-07-19] MEDS: DIAPER RELIEF PASTE (DESITIN) 60GM TOP SCH ×2 (08:42→22:09)
[2018-07-19] MEDS: IPRATROPIUM 0.5MG/ALBUTEROL 2.5MG INH SOL UD 3ML (DUONEB)(J7620) NEB SCH ×2 (09:05→20:48)
[2018-07-19] MEDS ORDERED: NS 1,000 ML IV ONE (12:00)
--- NOTE | 2018-07-19 13:19 | IPNPDOC ---
Date Seen The patient was seen on 07/19/18. Progress Note HPI: 68M pnh HTN and DM, left carotid artery stenosis s/p stenting, gout, CAD, ENEDINA, CKD3, recent GIB who initially presented to [facility] on 06/29/18 with reported seizures, arrived with a Arnav Coma Scale of 3, was given loading dose of Dilantin and intubated. CTH showed a right frontal mass so he was transferred to [facility] in [place], [place] for further work-up. At [place] MRI on 06-30-18 showed a 3cm by 3cm right frontal lobe lesion with a hemorrhagic component, possible neoplam or less likley transformation of an infarction. He was found to have leukocytosis which was thought to be from seizure activity and remained afebrile. He had significant hyponatremia, acute on chronic CKD and elevated blood sugars managed with insulin. He was evaluated by neurosurgery and had a resection of his right frontal mass on 07/04/18 after which he was maintained on a Decadron taper and continued on Dilantin for seizure prophylaxis. He was evaluated by therapy and noted to have significant impairment in his ADLs and gait, and was deemed medically appropriate for transfer to [facility] ARU on 07-09-18, as per Dr Young, with pathology pending from his recent tumor resection. Pt reports loose stools still occurring. 6 yesterday. 1 documented today. denies abdominal pain, N/V. Appetite remains decreased. IVF ordered as per ARU attending x 1 liter. Denies any fevers, chills, weakness, fatigue, STEPHENS, CP, palpitations. PE: GEN: 68yoM, appears stated age. Alert and oriented x 3. HEENT: Normocephalic, healing craniotomy scar. Pupils are equal, round, and reactive to light. Sclera are nonicteric. Conjunctiva without injection. No facial asymmetry. Moist mucous membranes. CHEST: Regular rate and rhythm, +S1, +S2 LUNGS: Decreased BS but clear bilaterally. No wheezes, rales, or rhonchi appreciated. ABD: Round, soft, non-tender, non-distended. +Bowel sounds throughout. EXT: No lower extremity edema appreciated. SKIN: [place], dry, warm. No rashes. A&P: 1. Frontal cranial mass status post resection at [facility] in [place] on 07/05/2018. Mgmt as per ARU. PT/OT/ST as per ARU Pain control as per ARU DVT prophylaxis as per ARU, SQ Heparin. Outpt F/U with Neurosurgery. Continue on Decadron taper as per Neurosurgery. Continue on Dilantin seizure prophylaxis as per Neurosurgery. Dilantin dose adjusted as per attending/Neuro to 150 Q8h, repeat Dilantin level ordered 07/19/18. Seen by Neurology appreciate any further recommendations. Seizure precautions. Slid OOB 07/14/18- CT head completed with no acute changes. 2. C diff. positive Afebrile. WBC 9.0. PO Vanco changed to Dificid 07/16/18. Bacid 2 tab BID. HOLD Bowel care. HOLD PPI. IVF as per Attending. 3. Hypokalemia. po supplement. Mag level 1.8 07/14/18. K WNL this AM BMP in AM. Monitor. 4. Chronic kidney disease3. Nephrology following. SCr 1.78. Diuretic on hold. IVF as per attending. 5. Gout. On Uloric. 6. Hypertension. Norvasc 10 mg daily, carvedilol 37.5 mg BID. 7. Coronary artery disease. ASA 8. Carotid stenosis, status post endarterectomy. 9. Congestive heart failure. No sign of fluid overload. Diuretic is on hold. Nephrology following. 10. Diabetes. Levemir d/cd, last 2 doses were held related to low BS. SSI Monitor 11. Benign prostatic hypertrophy (BPH). Flomax. 12. URI Respiratory panel Rhinovirus. Afebrile. CXR 07/14/18 NAD. Tylenol/Duoneb/Robitussin. Encourage I/S. Monitor. 13. Anemia. Normocytic. Likely related to chronic disease/CKD. Trending 8-9. Fe studies, B12, folate 07/14/18. Folate supplement added. Monitor need for transfusion. 14. GI prophylaxis. HOLD PPI. Continue pepcid. VS, I&O, 24H, Fishbone Vital Signs/I&O Vital Signs Date Time Temp Pulse Resp B/P (MAP) Pulse Ox O2 Delivery O2 Flow Rate FiO2 07/19/18 08:40 77 158/68 07/19/18 05:53 96.6 19 100 Room Air I&O- Last 24 Hours up to 6 AM 07/19/18 06:00 Intake Total 960 ml Output Total 600 ml Balance 360 ml Laboratory Data 24H LABS Laboratory Tests 2 07/18/18 16:44: Bedside Glucose (Misc Panel) 138H 07/18/18 20:19: Bedside Glucose (Misc Panel) 99 07/19/18 06:12: Nucleated Red Blood Cells % (auto) 0.0, Blood Urea Nitrogen 27H, Creatinine 1.78H, Sodium Level 141, Potassium Level 4.1, Chloride Level 115H, Carbon D ioxide Level 16L, Anion Gap 10, Glomerular Filtration Rate 40.8L, Calcium Level 7.8L, Phosphorus Level 3.5, Albumin 2.1L, Phenytoin (Dilantin) Level 8.6L CBC/BMP Laboratory Tests 07/19/18 06:12 Red Blood Count 2.96 L, Mean Corpuscular Volume 89.5, Mean Corpuscular Hemoglobin 28.0, Mean Corpuscular Hemoglobin Concent 31.3 L, Red Cell Distribution Width 18.7 H, Anion Gap 10 Microbiology Microbiology 07/10/18 Gastrointestinal Tract Panel (PCR) - Final, Complete Clostridium Difficile A/B 07/14/18 Respiratory Virus Panel (PCR) (MAYCOL) - Final, Complete Human Rhinovirus/Enterovirus 07/18/18 Urine Culture, Received Pending 07/09/18 Urine Culture - Final, Complete Saadia Campbell Jul 19, 2018 13:19
[2018-07-19 14:00] VITALS: BP 152/72
--- NOTE | 2018-07-19 15:39 | IPNPDOC ---
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 REVIEW OF SYSTEMS: The following is a completed review of systems and has been reviewed. Review of systems otherwise unremarkable. PAIN: Patient self reports bilateral chronic knee pain EYES: Negative for recent vision changes EARS, NOSE, & THROAT: dysphagia (resolved) denies, rhinorrhea CARDIOVASCULAR: +sternal pain, otherwise no palpitations PULMONARY: Negative. Denies shortness of breath, + cough GASTROINTESTINAL:+ diarrhea GENITOURINARY: Negative for dysuria or hematuria, + retention (improving) MUSCULOSKELETAL: bilateral knee OA vs gout NEUROLOGICAL: s/p right frontal lobe resection , seizures HEMATOLOGICAL: Negative SKIN: sacral ulcer PSYCHIATRIC: Unremarkable All other review of systems found to be negative. PHYSICAL EXAMINATION: VITAL SIGNS: Please see below. GENERAL: Pleasant and cooperative. No acute distress. HEENT: PERRL. Extraocular movements intact. Clear conjunctiva, left facial droop (eyebrow sparing) CARDIOVASCULAR: Regular rate and rhythm. No murmurs, rubs, or gallops +TTP sternal palpation LUNGS: Clear to auscultation bilaterally. No wheezes. No rhonchi ABDOMEN: Soft, nontender, nondistended. Positive bowel sounds. Normal active bowel sound NEUROLOGICAL: Alert and oriented times to self and place, not time Cranial nerves II through XII grossly intact. Sensation grossly intact able to follow 2-step commands, however unable to perform Luria, +Apraxia EXTREMITIES:5\5 strength bilateral upper extremities. >3/5 bilateral hip flexors and knee extensors, 5/5 bilateral ankle DF and EHL Bilateral knees warm to touch with effusion SKIN: sacral ulcer, right frontal craniotonomy incision c/d/i ASSESSMENT:68-year-old M with past medical history of ENEDINA, HTN, CAD who presents status post right frontal mass resection with seizures. PLAN: 1. rehab: PTOT, [employer] advance diet, assess for DME- significant apraxia, able to participate more in therapy, ambulating with RW close supervision 2. Neuro:s/p right frontal mass resection, pathology per negative however awaiting offical results results, Dilantin for seizures 125q8h, however levels low at 9.1, increased to 150 qh on 07/12/18 and on 07/19/18 8.6 will increase to 175q8h and recheck 07/26/18 - neuro consult recs appreciated, finishing up Decadron taper more quickly and will consider transition to Depakote given his impaired renal function -will need outpatient neuro f/u 2-4 weeks from discharge to review scans from [facility] and consider carotid US, he is s/p left CEA performed in by Dr. Rosa and currently has right carotid artery stenosis -[facility] surgery follow-up until 08/05/18 at 9:[address] Tello 3. Cardio: pmh HTn and HLD, hx of CHF, continue home med, diuretics on hold per renal recs- medicine consulted 4. Resp: Enedina non-compliant with CPAP, will provide nocturnal 02, will order chest X-ray for coughing today on exam- continue Guaifenesin and duonebs 5. Endo: pmh DM continue home meds and adjust prn 6. Rheum: pmh gout, continue Uloric 7. DVY ppx: continue heparin 8. GI ppx: omeprazole, patient found to have +C diff , given persistent diarrhea on Vancomycin, switched to Difficit 200mg BID x 10 days with improvement in l eukocytosis, overall very fatigued and diarrhea slightly better, but will give IVF for GI losses -however residual leukocytosis may be from Decadron 9. : admission UA and Ucx negative monitor PVRs- renal consulted for retention and CKD, recs appreciated 10. Pain: patient with headaches, Tylenol and Fiorcet prn 11. Dispo: 08/02/18, progressing towards goals Allergies Coded Allergies: No Known Allergies (Verified , 03/30/18) Vital Signs Vital Signs Date Time Temp Pulse Resp B/P (MAP) Pulse Ox O2 Delivery O2 Flow Rate FiO2 07/19/18 08:40 77 158/68 07/19/18 05:53 96.6 19 100 Room Air Laboratory Data CBC/BMP Laboratory Tests 07/19/18 06:12 Red Blood Count 2.96 L, Mean Corpuscular Volume 89.5, Mean Corpuscular Hemoglobin 28.0, Mean Corpuscular Hemoglobin Concent 31.3 L, Red Cell Distribution Width 18.7 H, Anion Gap 10 Labs 24H Laboratory Tests 2 07/18/18 16:44: Bedside Glucose (Misc Panel) 138H 07/18/18 20:19: Bedside Glucose (Misc Panel) 99 07/19/18 06:12: Nucleated Red Blood Cells % (auto) 0.0, Blood Urea Nitrogen 27H, Creatinine 1.78H, Sodium Level 141, Potassium Level 4.1, Chloride Level 115H, Carbon Dioxide Level 16L, Anion Gap 10, Glomerular Filtration Rate 40.8L, Calcium Level 7.8L, Phosphorus Level 3.5, Albumin 2.1L, Phenytoin (Dilantin) Level 8.6L 07/19/18 11:56: Bedside Glucose (Misc Panel) 91 Microbiology Microbiology 07/10/18 Gastrointestinal Tract Panel (PCR) - Final, Complete Clostridium Difficile A/B 07/14/18 Respiratory Virus Panel (PCR) (MAYCOL) - Final, Complete Human Rhinovirus/Enterovirus 07/18/18 Urine Culture, Received Pending 07/09/18 Urine Culture - Final, Complete Current Medications Current Medications Current Medications Acetaminophen (Tylenol Tab) 650 mg DAILY PRN PO fever; Start 07/09/18 at 21:00 Acetaminophen (Tylenol Tab) 1,000 mg TID PO Last administered on 07/19/18at 08:40; Start 07/09/18 at 21:00 Acetaminophen/ Butalbital/ Caffeine (Fioricet) 1 ea Q6HP PRN PO HEADACHE Last administered on 07/12/18at 12:58; Start 07/12/18 at 11:00 Albuterol/ Ipratropium (Duoneb (Ipr 0.5mg/Alb 2.5mg)) 3 ml BID NEB ; Start 07/14/18 at 21:00; Status UNV Albuterol/ Ipratropium (Duoneb (Ipr 0.5mg/Alb 2.5mg)) 3 ml RBID NEB Last administered on 07/19/18at 09:05; Start 07/10/18 at 08:00 Amlodipine Besylate (Norvasc) 10 mg DAILY PO Last administered on 07/19/18at 08:39; Start 07/10/18 at 09:00 Aspirin (Ecotrin) 81 mg DAILY PO Last administered on 07/19/18at 08:40; Start 07/10/18 at 09:00 Bisacodyl (Dulcolax Suppository) 10 mg DAILYPRN PRN PA CONSTIPATION; Start 07/09/18 at 21:15 Calcitriol (Rocaltrol) 0.25 mcg DAILY PO Last administered on 07/19/18 08:39; Start 07/10/18 at 09:00 Carvedilol (COReg) 12.5 mg BID PO Last administered on 07/14/18 09:03; Start 07/09/18 at 21:00; Stop 07/14/18 at 11:08; Status DC Carvedilol (COReg) 25 mg BID PO Last administered on 07/19/18 08:40; Start 07/14/18 at 21:00; Stop 07/19/18 at 10:30; Status DC Carvedilol (COReg) 37.5 mg BID PO ; Start 07/19/18 at 21:00 Cod Liver Oil/ Zinc Oxide (Desitin) apply to sacrum BID TOP Last administered on 07/19/18 08:42; Start 07/10/18 at 09:00 Dexamethasone (Decadron) 2 mg DAILY PO Last administered on 07/19/18 08:42; Start 07/16/18 at 09:00; Stop 07/21/18 at 08:59 Dexamethasone (Decadron) 2 mg DAILY PO ; Start 07/18/18 at 09:00; Stop 07/18/18 at 09:00; Status DC Dexamethasone (Decadron) 2 mg Q12H PO Last administered on 07/15/18at 21:09; Start 07/13/18 at 21:00; Stop 07/15/18 at 21:55; Status DC Dexamethasone (Decadron) 4 mg Q12H PO Last administered on 07/13/18at 08:35; Start 07/09/18 at 21:00; Stop 07/13/18 at 20:59; Status DC Dextrose (Dextrose 50%) 25 ml ASDIRECTED PRN IV SEE LABEL COMMENTS; Start 07/09/18 at 21:00 Famotidine (Pepcid) 10 mg BID PO Last administered on 07/19/18 08:40; Start 07/12/18 at 15:00 Febuxostat (Uloric) 120 mg DAILY PO Last administered on 07/19/18 08:39; Start 07/10/18 at 09:00 Fidaxomicin (Dificid) 200 mg BID PO Last administered on 07/19/18at 08:39; Start 07/16/18 at 11:45; Stop 07/25/18 at 21:01 Folic Acid (Folic Acid) 1 mg DAILY PO Last administered on 07/19/18at 08:40; Start 07/16/18 at 09:00 Gemfibrozil (Lopid) 600 mg BID PO Last administered on 07/19/18at 08:40; Start 07/09/18 at 21:00 Glucagon (Glucagon) 1 mg ASDIRECTED PRN SC SEE LABEL COMMENTS; Start 07/09/18 at 21:00 Glucose (Glucose) 16 GM ASDIRECTED PRN PO SEE LABEL COMMENTS; Start 07/09/18 at 21:00 Guaifenesin (Robitussin Tab) 400 mg TID PO Last administered on 07/19/18at 08 :39; Start 07/10/18 at 09:00 Guaifenesin (Robitussin Tab) 400 mg TID PO ; Start 07/14/18 at 21:00; Stop 07/14/18 at 21:00; Status DC Heparin Sodium (Porcine) (Heparin) 5,000 units Q8H SQ Last administered on 07/19/18at 13:01; Start 07/09/18 at 22:00 Home Med (Med Rec Complete!) ASDIRECTED XX ; Start 07/09/18 at 23:00; Stop 07/09/18 at 23:00; Status DC Insulin Detemir (Levemir Insulin) 10 units QHS SC Last administered on 07/16/18at 21:49; Start 07/15/18 at 21:00; Stop 07/19/18 at 13:01; Status DC Insulin Detemir (Levemir Insulin) 20 units QHS SC Last administered on 07/14/18at 22:04; Start 07/09/18 at 21:00; Stop 07/15/18 at 14:20; Status DC Insulin Human Lispro (HumaLOG INSULIN) SEE PROTOCOL TABLE AC SC Last administered on 07/19/18at 08:41; Start 07/10/18 at 07:30 Lactobacillus Acidophilus (Bacid) 1 ea BIDWM PO Last administered on 07/14/18at 08:59; Start 07/11/18 at 08:00; Stop 07/14/18 at 13:09; Status DC Lactobacillus Acidophilus (Bacid) 2 ea BIDWM PO Last administered on 07/19/18 08:39; Start 07/14/18 at 18:00 Lidocaine (Lidoderm Patch) 1 patch DAILY TD Last administered on 07/19/18at 08:41; Start 07/10/18 at 09:00 Lorazepam (Ativan) 2 mg Q6H PRN IV SEIZURES; Start 07/10/18 at 02:30 Magnesium Hydroxide (Milk Of Magnesia) 30 ml DAILYPRN PRN PO CONSTIPATION; Start 07/09/18 at 21:15 Metronidazole (Flagyl) 500 mg Q8H PO Last administered on 07/11/18at 05:01; Start 07/11/18 at 04:00; Stop 07/11/18 at 07:12; Status DC Non-Formulary Medication ( See Comment Field Below ) REMOVE LIDODERM PATCH DAILY@21 XX Last administered on 07/18/18at 21:19; Start 07/09/18 at 21:00 Omeprazole (PriLOSEC) 40 mg QHS PO Last administered on 07/11/18at 22:26; Start 07/09/18 at 21:00; Stop 07/12/18 at 14:39; Status DC Ondansetron HCl (Zofran) 4 mg Q6HP PRN PO NAUSEA; Start 07/09/18 at 21:15 Phenytoin (Dilantin Chewable) 125 mg Q8H PO Last administered on 07/12/18at 05:49; Start 07/09/18 at 22:00; Stop 07/12/18 at 10:30; Status DC Phenytoin (Dilantin Chewable) 150 mg Q8H PO Last administered on 07/19/18at 13:01; Start 07/12/18 at 14:00 Potassium Chloride (Micro-K Extencaps) 20 meq DAILY PO Last administered on 07/17/18at 10:19; Start 07/12/18 at 09:00; Stop 07/17/18 at 11:48; Status DC Senna/Docusate Sodium (Senokot S) 1 tab BID PO Last administered on 07/11/18at 2 2:23; Start 07/10/18 at 09:00; Stop 07/12/18 at 14:39; Status DC Tamsulosin HCl (Flomax) 0.4 mg QHS PO Last administered on 07/18/18 21:18; Start 07/09/18 at 21:00 Torsemide (Demadex) 50 mg BID@09,17 PO ; Start 07/10/18 at 09:00; Stop 07/10/18 at 09:24; Status DC Trazodone HCl (Desyrel) 25 mg QHSP PRN PO INSOMNIA Last administered on 07/17/18 21:57; Start 07/09/18 at 21:00 Vancomycin HCl (First-Vancomycin 50(Firvanq)- 250mg/5ml) 125 mg Q6H PO Last administered on 07/16/18at 05:44; Start 07/11/18 at 06:00; Stop 07/16/18 at 11:37; Status DC Zinc Oxide (Boudreauxs Butt Paste) sacrum BID TOP ; Start 07/10/18 at 09:00; Stop 07/10/18 at 13:02; Status DC ESTRELLITA STANTON MD Jul 19, 2018 15:39
[2018-07-19 20:00] VITALS: BP 164/70
[2018-07-19] MEDS ORDERED: CALCIUM CARBONATE 500 MG CHEW U/D PO PRN (20:00)
[2018-07-19] MEDS: **NOTE PATIENT COMMENT** MISC XX SCH (21:00)
[2018-07-19] MEDS: TAMSULOSIN 0.4 MG CAP PO SCH (22:07)
[2018-07-19 22:55] VITALS: BP 220/92
[2018-07-19] MEDS ORDERED: **hydrALAZINE** 10 MG TAB PO ONE (23:15)
[2018-07-19 23:53] LABS: HEMATOCRIT 27.1 % (42.0-52.0); HEMOGLOBIN 8.5 g/dl (13.5-17.5); MEAN CORPUSCULAR HGB CONC 31.4 g/dl (32.0-36.5); MEAN CORPUSCULAR VOLUME 89.1 fl (80.0-96.0); PLATELET COUNT, AUTOMATED 176 10^3/uL (150-450); RED BLOOD COUNT 3.04 10^6/uL (4.30-6.10); WHITE BLOOD COUNT 11.1 10^3/uL (4.0-10.0)
[2018-07-20 00:16] LABS: CALCIUM LEVEL 7.9 MG/DL (8.8-10.2); CREATININE FOR GFR 1.82 MG/DL (0.70-1.30); GLOMERULAR FILTRATION RATE 39.8 (>49); POTASSIUM SERUM 4.2 MEQ/L (3.5-5.1)
[2018-07-20 00:25] VITALS: BP 142/58
--- NOTE | 2018-07-20 02:05 | REPVR ---
EXAM: CT Head Without Contrast EXAM DATE/TIME: 07/20/2018 12:38 AM CLINICAL HISTORY: 68 years old, male; Signs and symptoms; Altered mental status/memory loss; Prior surgery; Surgery date: <1 month; Surgery type: Brain mass TECHNIQUE: Axial computed tomography images of the head/brain without contrast. All CT scans at this facility use at least one of these dose optimization techniques: automated exposure control; mA and/or kV adjustment per patient size (includes targeted exams where dose is matched to clinical indication); or iterative reconstruction. COMPARISON: CT Head without contrast 07/14/2018 10:26 PM FINDINGS: Brain: Status post right frontal craniotomy changes. No significant change is seen in the previously seen right extra-axial fluid collection with small focus of air and thickened dura measuring up to 6 mm. Low attenuation area in the right frontal lobe appears to be slightly more prominent than prior exam. Ventricles sulci are enlarged representing volume loss. No midline shift. No acute hemorrhage. Mild small vessel ischemic changes. Bones/joints: No acute fracture. Sinuses: Opacification of the visualized right maxillary sinus and mild mucosal thickening of ethmoidal air. Mastoid air cells: Normal as visualized. No mastoid effusion. Soft tissues: Normal. IMPRESSION: Status post right frontal craniotomy changes. No significant change is seen in the previously seen right extra-axial fluid collection with small focus of air and thickened dura measuring up to 6 mm. Low attenuation area in the right frontal lobe appears to be slightly more prominent than prior exam. If clinically concerned for residual tumor further evaluation with contrast-enhanced MR examination is recommended. Electronically signed by: Selina Mcmullen On 07/20/2018 02:04:30 AM
[2018-07-20] MEDS ORDERED: FOSFOMYCIN TROMETHAMINE 3 GM POWDER PACKET (MONUROL) PO ONE (02:45)
--- NOTE | 2018-07-20 03:50 | IPNPDOC ---
Date Seen The patient was seen on 07/20/18. Progress Note I went to see patient was said to have mental status change, just this evening with a blood pressure systolic to 200/92 and with a temperature of 101.6. OBJECTIVE VITAL SIGNS: Blood pressure 200/92, heart rate 87, respiratory rate 28, temperature 101.6. IMPRESSION/PLAN Hypertensive urgency, likely with poor cooperation for by mouth meds. In the setting of fever. We will panculture patient.: Chest x-ray, CBC, BMP, UA with reflex to culture. Chart review. Last UA done consistent with UTI. However, patient, no antibiotics for UTI. I will treat UTI with 3 g of fosfomycin one-time dose. All other options cross-reacts with hydantoin. Hydralazine by mouth 10 mg stat. Acetaminophen for fever. On follow-up: Patient sound asleep with blood pressure 142/58, O2 sat 97, room air, respiratory rate 20, temperature down to 100 VS, I&O, 24H, Fishbone Vital Signs/I&O Vital Signs Date Time Temp Pulse Resp B/P (MAP) Pulse Ox O2 Delivery O2 Flow Rate FiO2 07/20/18 00:25 100.0 87 28 142/58 (86) 97 Room Air I&O- Last 24 Hours up to 6 AM 07/20/18 06:00 Intake Total 1120 ml Output Total 280 ml Balance 840 ml Laboratory Data 24H LABS Laboratory Tests 2 07/19/18 06:12: Nucleated Red Blood Cells % (auto) 0.0, Blood Urea Nitrogen 27H, Creatinine 1.78H, Sodium Level 141, Potassium Level 4.1, Chloride Level 115H, Carbon Dioxide Level 16L, Anion Gap 10, Glomerular Filtration Rate 40.8L, Calcium Level 7.8L, Phosphorus Level 3.5, Albumin 2.1L, Phenytoin (Dilantin) Level 8.6L 07/19/18 11:56: Bedside Glucose (Misc Panel) 91 07/19/18 16:55: Bedside Glucose (Misc Panel) 88 07/19/18 20:55: Bedside Glucose (Misc Panel) 99 07/19/18 22:28: Bedside Glucose (Misc Panel) 95 07/19/18 23:42: Nucleated Red Blood Cells % (auto) 0.0, Anion Gap 11, Glomerular Filtration Rate 39.8L, Blood Urea Nitrogen 27H, Creatinine 1.82H, Sodium Level 141, Potassium Level 4.2, Chloride Level 116H, Carbon Dioxide Level 14L, Calcium Level 7.9L CBC/BMP Laboratory Tests 07/19/18 06:12 Red Blood Count 2.96 L, Mean Corpuscular Volume 89.5, Mean Corpuscular Hemoglobin 28.0, Mean Corpuscular Hemoglobin Concent 31.3 L, Red Cell Distribution Width 18.7 H, Anion Gap 10 07/19/18 23:42 Red Blood Count 3.04 L, Mean Corpuscular Volume 89.1, Mean Corpuscular Hemoglobin 28.0, Mean Corpuscular Hemoglobin Concent 31.4 L, Red Cell Distribution Width 19.1 H, Calcium Level 7.9 L Microbiology Microbiology 07/20/18 Blood Culture, Received Pending 07/19/18 Blood Culture, Received Pending 07/19/18 Stool Occult Blood (MAYCOL) - Final, Complete 07/10/18 Gastrointestinal Tract Panel (PCR) - Final, Complete Clostridium Difficile A/B 07/14/18 Respiratory Virus Panel (PCR) (MAYCOL) - Final, Complete Human Rhinovirus/Enterovirus 07/18/18 Urine Culture, Received Pending KAELA JANSEN MD Jul 20, 2018 03:50
--- NOTE | 2018-07-20 05:20 | IPN ---
DATE OF VISIT: 07/19/2018 HISTORY: Mr. Isaac is seen this morning on his bedside. He continues to have some loose stools and also reports a headache. The patient is discouraged today due to his condition not getting better. He also reports pain in the anterior chest wall due to resuscitation. There is no nausea or vomiting. PHYSICAL EXAMINATION: VITAL SIGNS: Temperature 96.6 degrees Fahrenheit, heart rate 77 per minute and respiratory rate 18 per minute. Blood pressure 158/68 mmHg and oxygen saturation 100%. GENERAL: The patient had six loose stools yesterday and urine output was 950 ML, while total intake was only 1140. HEENT/NECK: His craniotomy incision is healing nicely. Neck veins are not distended and there is no oral thrush or ulcers. HEART: Sounds are regular. LUNGS: Clear to auscultation. ABDOMEN: Soft and nontender. Bowel sounds are normal. EXTREMITIES: Extremities have no cyanosis or clubbing. NEUROLOGIC: He is awake, alert at his baseline mentation. SKIN: Skin has no rash or ulcers. LABORATORY DATA: Today's labs show WBC count 9.0, hemoglobin 8.3 and hematocrit 26.5. Platelets 186. Sodium 141, potassium 4.1, CO2 16, BUN 27 and creatinine 1.78. Glucose 157 and calcium 7.8. PROBLEMS: 1. Acute kidney injury superimposed on chronic kidney disease. This is related to ongoing diarrhea as he had six loose stools yesterday. We are hoping that Dificid is working and his diarrhea is going to improve. At this point he is not receiving any intravenous (IV) fluids and will continue to watch him for the next 24 hours. The patient is being advise and encouraged to continue with liberal oral fluid intake. 2. Metabolic acidosis. Slight worsening of metabolic acidosis is noted. His renal profile will be repeated again tomorrow and IV sodium bicarbonate infusion will be started should his metabolic acidosis be worse or not improve by tomorrow. 3. Clostridium difficile colitis. The patient continues to have some loose stools and remains on Dificid 200 mg twice a day. 4.Anemia. His anemia is stable at this point and does not need any urgent intervention. He has a long history of recurrent iron deficiency anemia with prior history of gastrointestinal bleed and has required transfusions in the past. At this point there is no emergent indication for a transfusion. 5. Hypertension. Blood pressure is reasonable and current antihypertensive meds are appropriate. We will make further adjustments if needed. 6. Gout. The patient remains asymptomatic on Uloric 120 mg daily which will be continued. MTDD
[2018-07-20 06:00] VITALS: BP 145/80
[2018-07-20 06:24] LABS: HEMATOCRIT 25.7 % (42.0-52.0); HEMOGLOBIN 8.1 g/dl (13.5-17.5); MEAN CORPUSCULAR HEMOGLOBIN 27.7 pg (27.0-33.0); MEAN CORPUSCULAR HGB CONC 31.5 g/dl (32.0-36.5); PLATELET COUNT, AUTOMATED 175 10^3/uL (150-450); RED BLOOD COUNT 2.92 10^6/uL (4.30-6.10); WHITE BLOOD COUNT 9.1 10^3/uL (4.0-10.0)
[2018-07-20 06:50] LABS: ALBUMIN 2.1 GM/DL (3.2-5.2); BILIRUBIN,TOTAL 0.3 MG/DL (0.2-1.0); CALCIUM LEVEL 7.7 MG/DL (8.8-10.2); CREATININE FOR GFR 1.89 MG/DL (0.70-1.30); GLOMERULAR FILTRATION RATE 38.1 (>49); TOTAL PROTEIN 5.7 GM/DL (6.4-8.2)
[2018-07-20] MEDS: PHENYTOIN 50 MG CHEW TABLET PO SCH ×3 (06:59→21:16)
[2018-07-20] MEDS: HEPARIN SOD (PORCINE) 5000 UNITS/ML VIAL SQ SCH ×3 (06:59→21:17)
[2018-07-20] MEDS: HumaLOG INSULIN (NovoLOG) PER UNIT SC SCH ×3 (07:30→18:03)
[2018-07-20] MEDS: IPRATROPIUM 0.5MG/ALBUTEROL 2.5MG INH SOL UD 3ML (DUONEB)(J7620) NEB SCH ×2 (08:00→23:22)
[2018-07-20] MEDS: SODIUM BICARBONATE 150 MEQ in STERILE WATER LITER BAG 1,000 ML IV SCH ×2 (10:14→21:16)
[2018-07-20] MEDS: FEBUXOSTAT 40 MG TABLET (ULORIC) PO SCH (10:20)
[2018-07-20] MEDS: FIDAXOMICIN 200 MG TAB (DIFICID) PO SCH ×2 (10:20→21:17)
[2018-07-20] MEDS: LIDOCAINE 5% (LIDODERM) PATCH TD SCH (10:21)
[2018-07-20] MEDS: LACTOBACILLUS ACIDOPHILUS CAP (BACID) PO SCH ×2 (10:21→18:04)
[2018-07-20] MEDS: ACETAMINOPHEN 500 MG TAB PO SCH ×3 (10:21→21:15)
[2018-07-20] MEDS: GEMFIBROZIL 600 MG TAB PO SCH ×2 (10:35→21:15)
[2018-07-20] MEDS: CALCITRIOL 0.25 MCG CAP (S0169) PO SCH (10:35)
[2018-07-20] MEDS: ASPIRIN 81 MG ENTERIC TAB PO SCH (10:35)
[2018-07-20] MEDS: FOLIC ACID 1 MG TAB PO SCH (10:35)
[2018-07-20] MEDS: FAMOTIDINE 20 MG TAB PO SCH ×2 (10:36→21:15)
[2018-07-20] MEDS: amLODIPine 10 MG TAB PO SCH (10:41)
[2018-07-20] MEDS: CARVedilol 12.5 MG TAB PO SCH ×2 (10:41→21:16)
[2018-07-20] MEDS: guaiFENesin 200 MG TAB PO SCH ×3 (10:44→21:15)
[2018-07-20] MEDS: DIAPER RELIEF PASTE (DESITIN) 60GM TOP SCH ×2 (10:44→21:13)
--- NOTE | 2018-07-20 12:23 | IPNPDOC ---
Date Seen The patient was seen on 07/20/18. Progress Note HPI: 68M pnh HTN and DM, left carotid artery stenosis s/p stenting, gout, CAD, ENEDINA, CKD3, recent GIB who initially presented to [facility] on 06/29/18 with reported seizures, arrived with a [place] Coma Scale of 3, was given loading dose of Dilantin and intubated. CTH showed a right frontal mass so he was transferred to [facility] in [place], [place] for further work-up. At [place] MRI on 06-30-18 showed a 3cm by 3cm right frontal lobe lesion with a hemorrhagic component, possible neoplam or less likley transformation of an infarction. He was found to have leukocytosis which was thought to be from seizure activity and remained afebrile. He had significant hyponatremia, acute on chronic CKD and elevated blood sugars managed with insulin. He was evaluated by neurosurgery and had a resection of his right frontal mass on 07/04/18 after which he was maintained on a Decadron taper and continued on Dilantin for seizure prophylaxis. He was evaluated by therapy and noted to have significant impairment in his ADLs and gait, and was deemed medically appropriate for transfer to [facility] on 07-09-18, as per Dr Young, with pathology pending from his recent tumor resection. Pt reports loose stools still occurring. 3 yesterday. 3 documented today. denies abdominal pain, N/V. Appetite remains decreased. IVF/Sodium Bicarb added as per Dr Mayers this AM. The pt was noted to be febrile last evening, Hospitalist called, treated with Fosfomycin for UTI. UC result available this AM indicated E Coli. Pt received fosfomycin po x 1 dose 07/20/18. Denies any fevers, chills, weakness, fatigue, STEPHENS, CP, palpitations. PE: GEN: 68yoM, appears stated age. Alert and oriented x 3. HEENT: Normocephalic, healing craniotomy scar. Pupils are equal, round, and reactive to light. Sclera are nonicteric. Conjunctiva without injection. No facial asymmetry. Moist mucous membranes. CHEST: Regular rate and rhythm, +S1, +S2 LUNGS: Decreased BS but clear bilaterally. No wheezes, rales, or rhonchi appreciated. ABD: Round, soft, non-tender, non-distended. +Bowel sounds throughout. EXT: No lower extremity edema appreciated. SKIN: [place], dry, warm. No rashes. A&P: 1. Frontal cranial mass status post resection at [facility] in [place] on 07/05/2018. Mgmt as per ARU. PT/OT/ST as per ARU Pain control as per ARU DVT prophylaxis as per ARU, SQ Heparin. Outpt F/U with Neurosurgery. Continue on Decadron taper as per Neurosurgery. Continue on Dilantin seizure prophylaxis as per Neurosurgery. Dilantin dose adjusted as per attending to 175 Q8h, repeat Dilantin level 07/26/18. Seen by Neurology appreciate any further recommendations. Seizure precautions. Slid OOB 07/14/18- CT head completed with no acute changes. Repeat CT 07/20/18 with no acute changes. 2. C diff. positive Afebrile. WBC 9.1. PO Vanco changed to Dificid 07/16/18. Bacid 2 tab BID. HOLD Bowel care. HOLD PPI. ID consulted for further recommendations. 3. Hypokalemia. Resolved. po supplement. Monitor. 4. Chronic kidney disease3. Nephrology following. SCr 1.89. Diuretic on hold. IVF/ Sodium Bicarb as per Nephrology. 5. Gout. On Uloric. 6. Hypertension. Norvasc 10 mg daily, carvedilol 37.5 mg BID. BP has been elevated, Hydralazine added 25 mg Q6 with hold parameter. Monitor. 7. Coronary artery disease. ASA 8. Carotid stenosis, status post endarterectomy. 9. Congestive heart failure. No sign of fluid overload. Diuretic is on hold. Nephrology following. 10. Diabetes. Levemir d/cd 07/19/18, no further hypoglycemia. SSI Monitor 11. Benign prostatic hypertrophy (BPH). Flomax. 12. URI/Respiratory panel Rhinovirus. Afebrile. CXR 07/14/18 NAD. Tylenol/Duoneb/Robitussin. Encourage I/S. Monitor. 13. Anemia. Normocytic. Likely related to chronic disease/CKD. Trending 8-9. Fe studies, B12, folate 07/14/18. Folate supplement added. Monitor need for transfusion. 14. UTI. E Coli pansensitive. UC 07/18/18 resulted 07/20/18 pansensitive E coli. Pt treated with Fosfomycin po x 1. UC 07/20 pending. BC x 2 pending. WBC 9.1. ID consulted for further recommendations. 15. GI prophylaxis. HOLD PPI. Continue pepcid. VS, I&O, 24H, Fishbone Vital Signs/I&O Vital Signs Date Time Temp Pulse Resp B/P (MAP) Pulse Ox O2 Delivery O2 Flow Rate FiO2 07/20/18 10:41 80 07/20/18 10:41 170/70 07/20/18 06:00 99.2 92 Room Air 07/20/18 00:25 28 I&O- Last 24 Hours up to 6 AM 07/20/18 06:00 Intake Total 1120 ml Output Total 480 ml Balance 640 ml Laboratory Data 24H LABS Laboratory Tests 2 07/19/18 16:55: Bedside Glucose (Misc Panel) 88 07/19/18 20:55: Bedside Glucose (Misc Panel) 99 07/19/18 22:28: Bedside Glucose (Misc Panel) 95 07/19/18 23:42: Nucleated Red Blood Cells % (auto) 0.0, Anion Gap 11, Glomerular Filtration Rate 39.8L, Blood Urea Nitrogen 27H, Creatinine 1.82H, Sodium Level 141, Potassium Level 4.2, Chloride Level 116H, Carbon Dioxide Level 14L, Calcium Level 7.9L 07/20/18 03:54: Urine Color YELLOW, Urine Appearance TURBIDH, Urine pH 5.0, Urine Specific [place] 1.013, Urine Protein 2+H, Urine Glucose (UA) NEGATIVE, Urine Ketones TRACEH, Urine Blood 2+H, Urine Nitrite NEGATIVE, Urine Bilirubin NEGATIVE, Urine Urobilinogen 0.2, Urine Leukocyte Esterase 3+H, Urine WBC (Auto) TNTCH, Urine RBC (Auto) 23H, Urine Hyaline Casts (Auto) 0, Urine Bacteria (Auto) 3+H, Urine Squamous Epithelial Cells 0, Urine Sperm (Auto) 07/20/18 05:55: Bedside Glucose (Misc Panel) 127H 07/20/18 06:00: Nucleated Red Blood Cells % (auto) 0.0, Anion Gap 11, Glomerular Filtration Rate 38.1L, Blood Urea Nitrogen 27H, Creatinine 1.89H, Sodium Level 140, Potassium Level 4.0, Chloride Level 115H, Carbon Dioxide Level 14L, Calcium Level 7.7L, Aspartate Amino Transf (AST/SGOT) 12, Alanine Aminotransferase (ALT/SGPT) 11L, Alkaline Phosphatase 164H, Total Bilirubin 0.3, Total Protein 5.7L, Albumin 2.1L, Albumin/Globulin Ratio 0.58L 07/20/18 11:16: Bedside Glucose (Misc Panel) 127H CBC/BMP Laboratory Tests 07/19/18 23:42 Red Blood Count 3.04 L, Mean Corpuscular Volume 89.1, Mean Corpuscular Hemoglobin 28.0, Mean Corpuscular Hemoglobin Concent 31.4 L, Red Cell Distribution Width 19.1 H, Calcium Level 7.9 L 07/20/18 06:00 Red Blood Count 2.92 L, Mean Corpuscular Volume 88.0, Mean Corpuscular Hemoglobin 27.7, Mean Corpuscular Hemoglobin Concent 31.5 L, Red Cell Distribution Width 19.2 H, Calcium Level 7.7 L, Aspartate Amino Transf (AST/SGOT) 12, Alanine Aminotransferase (ALT/SGPT) 11 L, Alkaline Phosphatase 164 H, Total Bilirubin 0.3, Total Protein 5.7 L, Albumin 2.1 L Microbiology Microbiology 07/20/18 Blood Culture, Received Pending 07/19/18 Blood Culture, Received Pending 07/19/18 Stool Occult Blood (MAYCOL) - Final, Complete 07/10/18 Gastrointestinal Tract Panel (PCR) - Final, Complete Clostridium Difficile A/B 07/14/18 Respiratory Virus Panel (PCR) (MAYCOL) - Final, Complete Human Rhinovirus/Enterovirus 07/20/18 Urine Culture, Received Pending 07/18/18 Urine Culture - Final, Complete Escherichia Coli Saadia Campbell Jul 20, 2018 12:23
--- NOTE | 2018-07-20 12:51 | IPN ---
DATE OF VISIT: 07/20/2018 Mr. Isaac is seen this morning on his bedside. He is not feeling good today and reports that his diarrhea has worsened again. He denies any nausea or vomiting. He has no dyspnea or chest pain. PHYSICAL EXAMINATION: Temperature is 99.2 now, however, earlier last evening he was 101.6. Heart rate is 74 per minute and respiratory rate 20 per minute. Blood pressure 145/80 mmHg and oxygen saturation 92% on room air. Head is atraumatic. Neck is supple and without jugular venous distention (JVD) or thyroid enlargement. Heart sounds are regular and lungs clear to auscultation. Abdomen is soft and nontender and bowel sounds are normal. Extremities have no cyanosis or clubbing. Neurologically he is awake and without a focal deficit. Today's labs show WBC count 9.1, hemoglobin 8.1 and hematocrit 25.7. Platelets 175. Sodium 140, potassium 4.0, CO2 14, BUN 27 and creatinine 1.89. PROBLEMS: 1. Metabolic acidosis. His metabolic acidosis has worsened and we are going to start sodium bicarbonate drip with 150 mEq sodium bicarbonate in each liter at 100 mL per hour. Nursing staff is being advised to start the IV fluid as soon as possible. 2. Diarrhea with C. difficile colitis. The patient remains on Dificid 200 mg twice a day. He only had three stools yesterday all day, however, this morning he already had three loose stools so far. We will continue to hydrate him now and continue with Dificid. 3. Anemia. His anemia is also getting worse and most likely related to GI problems and acute kidney injury. He also has history of chronic anemia with blood loss. At this point there is no emergent need for transfusion, however, he is likely to require transfusion soon. CBC will be checked again tomorrow morning. 4. Acute and chronic kidney disease. His kidney function is stable at baseline at present and he has no uremic symptoms.
[2018-07-20] MEDS ORDERED: CEFEPIME HCL 1 GM in D5W MINI-BAG PLUS 50 ML IV SCH (13:00)
[2018-07-20] MEDS: **hydrALAZINE HCL** 25 MG TAB PO SCH ×3 (13:19→23:55)
[2018-07-20 14:00] VITALS: BP 178/75
[2018-07-20 14:01] LABS: C REACTIVE PROTEIN QUANTITATIV 11.5 MG/DL (0.00-0.30)
[2018-07-20 14:26] LABS: ERYTHROCYTE SEDIMENTATION RATE 126 mm/hr (0-20)
[2018-07-20 20:00] VITALS: BP 150/82
[2018-07-20] MEDS: TAMSULOSIN 0.4 MG CAP PO SCH (21:14)
[2018-07-20] MEDS: **NOTE PATIENT COMMENT** MISC XX SCH (21:53)
[2018-07-21] MEDS: HEPARIN SOD (PORCINE) 5000 UNITS/ML VIAL SQ SCH ×3 (05:34→21:27)
[2018-07-21] MEDS: **hydrALAZINE HCL** 25 MG TAB PO SCH ×4 (05:34→23:47)
[2018-07-21] MEDS: PHENYTOIN 50 MG CHEW TABLET PO SCH ×3 (05:35→21:27)
[2018-07-21 05:40] VITALS: BP 164/78
[2018-07-21 06:51] LABS: HEMATOCRIT 22.1 % (42.0-52.0); HEMOGLOBIN 7.1 g/dl (13.5-17.5); MEAN CORPUSCULAR HEMOGLOBIN 27.4 pg (27.0-33.0); MEAN CORPUSCULAR HGB CONC 32.1 g/dl (32.0-36.5); MEAN CORPUSCULAR VOLUME 85.3 fl (80.0-96.0); PLATELET COUNT, AUTOMATED 152 10^3/uL (150-450); RED BLOOD COUNT 2.59 10^6/uL (4.30-6.10); WHITE BLOOD COUNT 5.2 10^3/uL (4.0-10.0)
[2018-07-21 07:15] LABS: CALCIUM LEVEL 7.1 MG/DL (8.8-10.2); CREATININE FOR GFR 1.5 MG/DL (0.70-1.30); GLOMERULAR FILTRATION RATE 49.7 (>49); PHOSPHORUS LEVEL 2.4 MG/DL (2.5-4.9); POTASSIUM SERUM 3.4 MEQ/L (3.5-5.1)
[2018-07-21] MEDS: SODIUM BICARBONATE 150 MEQ in STERILE WATER LITER BAG 1,000 ML IV SCH ×2 (08:00→17:23)
--- NOTE | 2018-07-21 08:08 | CR ---
DATE OF CONSULTATION: 07/20/2018 CONSULTING PROVIDER: Dr. Thomas REASON FOR CONSULTATION: E-coli urinary tract infection (UTI) in the setting of the C difficile diarrhea. HISTORY OF PRESENT ILLNESS: This is a very pleasant 66-year-old male who was originally seen at [facility] on June 29, 2018. He was brought into the emergency room because he had a seizure and had found him unresponsive. While in the emergency department, a CT of the head was done without contrast and showed an ill-defined hypodensity in the right frontal lobe with mass effect consistent with a mass. He and his family had recently been on vacation in [place] for 2 weeks. He had complained of a headache the Thursday prior to this, which he did not complain of again and then on Thursday and Thursday only complained of some nausea to his family members. He was intubated and transferred to [facility] in [place] for further workup. He had a [place] coma scale of 3 at [facility] and upon arrival to [facility] his Arnav coma scale increased to 10 and he was able to follow commands. MRI at [place] on 06/30/2018 showed a 3 cm x 3 cm right frontal lobe lesion with a hemorrhagic component. He was evaluated by neurosurgery and had a resection of his right frontal mass on 07/04/2018 after which he was maintained on Decadron taper and continued on Dilantin for seizure prophylaxis. While the pathology report still pending, apparently the preliminary read was negative for tumor. Upon his arrival to [facility] on 07/09/2018, he had been having diarrhea for about a week. On the 07/10/2018 gastrointestinal (GI) panel was ordered, which was positive for C difficile. On 07/11/2018 he was started on vancomycin 125 mg q.6 h and Flagyl 500 mg daily 8 hours. Flagyl was discontinued. On 07/13/2018, the patient seemed to have his diarrhea improved and then on 07/16/2018, he had 15 bowel movements, vancomycin was then changed to Dificid 200 mg twice a day 07/18/2018, a urinalysis was ordered with a reflex urine culture which was positive for E-coli. We were consulted today because overnight the patient had a fever of 101.6 and had altered mental status. The night hospitalist performed another urinalysis with a repeat culture and the results from the previous urine culture were back showing that the patient did have a positive culture for E-coli. The patient was given one dose of fosfomycin 3 grams, which was given at 03:00 a.m and started on cefepime. REVIEW OF SYSTEMS: CONSTITUTIONAL: Denies any weight changes, night sweats or chills. He states he thinks he had a fever overnight. HEENT: Denies vision changes, epistaxis, sinus pain, stuffy nose, sore throat, tinnitus or odynophagia. He states he has had a chronic headache since his neurosurgery. CARDIOVASCULAR: Denies chest pain, orthopnea, paroxysmal nocturnal dyspnea, edema or palpitations. RESPIRATORY: Denies cough, sputum production, wheezing, hemoptysis or shortness of breath. GASTROINTESTINAL: Denies abdominal pain, difficulty swallowing, indigestion, bloating, nausea or vomiting, constipation, obstipation, hematemesis, hematochezia, melena or tenesmus. Does admit to diarrhea, which he states is keeping him awake and causing his bottom to be raw. GENITOURINARY: Denies incontinence, dysuria, hematuria, nocturia, polyuria, hesitancy or retention. MUSCULOSKELETAL: Denies joint swelling, decreased range of motion, crepitus or arthritis. INTEGUMENTARY: Denies rashes striatal lesions, wounds or pruritus. NEURO: Admits to difficulty with his memory but denies any changes to sight, smell, hearing or taste. He states he thinks he has a seizure and he does have a chronic headache from his surgery. Denies any paresthesias or numbness. PSYCHIATRIC: Denies any depression, anxiety, paranoia or anhedonia or episodes of jesus. ENDOCRINE: Denies mood swings, tremors, palpitations, appetite changes, constipation or dry ski. Denies polydipsia. HEMATOLOGIC: Denies purpura, petechiae or easy bruising or bleeding. LYMPHATIC: Denies new lumps or bumps anywhere. PAST MEDICAL HISTORY: 1. Hypertension. 2. Diabetes. 3. Coronary artery disease. 4. Congestive heart failure (CHF). 5. Chronic obstructive pulmonary disease (COPD). 6. Obstructive sleep apnea (ENEDINA) with CPAP. 7. Chronic kidney disease (CKD) stage III-[address] Mayers. 8. Gastroesophageal reflux disease (GERD). 9. 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 10. Benign prostatic hypertrophy (BPH). CURRENT MEDICATIONS: - hydralazine 25 mg by mouth every 6 hours. - sodium bicarbonate 150 mEq IV - Dilantin [id number] mg by mouth every 8 hours - Coreg 37.5 mg by mouth twice a day - Tums 500 mg daily as needed - Dificid 200 mg by mouth twice a day dose #9 out of 20 - Decadron 2 mg daily by mouth - folic acid 1 mg by mouth daily - Bacid two each by mouth twice a day with meals - Pepcid 10 mg by mouth twice a day - Fioricet every 6 hours as needed for headache - Norvasc 10 mg by mouth daily - aspirin 81 mg by mouth daily - calcitriol 0.25 mcg by mouth daily - Uloric 120 mg by mouth daily - Lidoderm patch transdermal daily - guaifenesin 400 mg by mouth three times a day - Desitin topical twice a day - DuoNebs twice a day - sliding-scale insulin - Ativan 2 mg every 6 hours as needed IV - heparin 5000 units every 8 hours subcutaneously - Zofran 4 mg every 6 hours as needed - Tylenol 1000 mg by mouth three times a day - Tylenol 650 mg by mouth daily as needed - gemfibrozil 600 mg by mouth twice a day - hypoglycemic protocol - Flomax 0.4 mg nightly - trazodone 25 mg nightly as needed PAST SURGICAL HISTORY: 1. Craniotomy 2019. 2. Endarterectomy of the carotids. 3. Cataracts. FAMILY HISTORY: Noncontributory. ALLERGIES: None. SOCIAL HISTORY: Former smoker. Denies any alcohol or drug use. to his of 28 years. LABORATORY DATA: CBC: WBC 9.1, hemoglobin 8.1, hematocrit 25.7, platelets 175, ESR 126. Chemistry: Sodium 140, potassium 4.0, chloride 115, carbon dioxide 14, BUN 27, creatinine 1.89, fasting glucose 135, calcium 7.7, AST 12, ALT 11, alkaline phosphatase 164, CRP 11.5, total protein 5.7, albumin 2.1. Urinalysis: Yellow and turbid with a specific gravity of 1.013, 2+ protein, trace ketones, 2+ blood, 3+ leukocyte esterase, WBCs too numerous to count, RBCs 23, 3+ bacteria. Phenytoin level 8.6. MICROBIOLOGY: GI panel from 07/10/2018 was positive for a C difficile. Urine culture from 07/09/2018 was negative. Urine culture from 07/18/2018 was positive for E-coli. Urine culture from 07/20/2018 is pending. Respiratory panel positive for rhinovirus. Stool occult on 07/19/2018 was negative for blood. Blood cultures times two are from and 07/20/2018 are pending. IMAGING STUDIES: Chest x-ray from 07/14/2018 showed no acute disease. Head CT from 07/14/2018 showed postoperative pneumocephalic and extra axial fluid collection surrounded by thickened membranes with a large focus of postsurgical macrocystic encephalomalacia in the right frontoparietal region. There is parenchymal volume loss. Mild white matter changes again demonstrated in the subcortical centrum semiovale and periventricular white matter consistent with small vessel white matter angiopathic gliosis. Head CT from 07/20/2018 showed status post right frontal craniotomy changes. No significant change is seen in the previously seen right extra-axial fluid collection with small focus of air and thickened dura measuring up to 6 mm. Low attenuation in the area in the right frontal lobe appears to be slightly more prominent than prior exam. PHYSICAL EXAMINATION: VITALS: Temperature 97.4, pulse 67, respiratory rate 18, blood pressure 178/75, 99% on room air. GENERAL: Pleasant older male in no acute distress. He is very conversant. HEENT: Atraumatic, normocephalic, there is a long curved scar over the patient's right frontal temporal area which shows granulomatous tissue and multiple stages of healing. There is no erythema, exudate or drainage. This looks to be healing well. There are no lesions in the mouth. The patient has been his own teeth and dentition is fair. Eyes are clear and pupils are equal, round and reactive to light. NECK: Supple, no neck stiffness or rigidity. No masses are appreciated. LUNGS: Clear to auscultation bilaterally. No wheezes, rhonchi or rales. HEART: Regular rate and rhythm. No murmurs, gallops or rubs. ABDOMEN: Normoactive bowel sounds normal. No pain to palpation in all four quadrants. No tympany to percussion. No pain upon palpation of the suprapubic area. BACK: No costovertebral angle (CVA) tenderness bilaterally. EXTREMITIES: No clubbing, cyanosis or edema. NEURO: The patient has 5/5 muscle strength in the lower extremities. He does have some weakness in the right upper extremity compared to the left upper extremity. He obeys commands, but does seem to forget what he is doing in the middle of a commands sometimes. He does have a tendency to fall asleep, and does have to be aroused multiple times during my interview. SKIN: No rashes or lesions on the extremities are noted. IMPRESSION: This 68-year-old male who was recently at [facility] for a craniotomy secondary to a right frontotemporal brain mass. Pathology is still pending. He was transferred to [facility] with diarrhea and subsequently diagnosed with C. Difficile colitis, as well as pyuria with E-coli. PLAN: 1. C difficile colitis: We agree with the use of Dificid D#4. Current recommendations show Dificid 200 mg twice a day for 10 days as the appropriate treatment. If diarrhea is persistent, however, we can consider a stool transplant. 2. Pyuria with the E-coli: Urinary tract infection in men is always considered complicated. We agree with fosfomycin not cefepime narrower spectrum with Hx Cdiff however, because this is a complicated urinary tract infection, we would do 3 grams every other day for a total three doses. If the patient's fever returns we should probably consider a CT of the abdomen and pelvis, especially if there is a concern for urinary retention. His E-coli UTI may be because of his stool incontinence secondary to C. Difficile diarrhea. His was concerned that the patient had not been showering after soiling himself, which would make a urinary tract infection more likely to occur. My faculty preceptor for this patient encounter was physically present during the encounter and was fully available. All aspects of the patient interview, examination, medical decision making process, and medical care plan development were reviewed and approved by the faculty preceptor. The faculty preceptor is aware and concurs with the plan as stated in the body of this note and will attest to such by his/her co-signature. BETZY
[2018-07-21 08:49] LABS: MAGNESIUM LEVEL 1.5 MG/DL (1.8-2.4)
[2018-07-21] MEDS: IPRATROPIUM 0.5MG/ALBUTEROL 2.5MG INH SOL UD 3ML (DUONEB)(J7620) NEB SCH ×2 (08:53→20:21)
[2018-07-21] MEDS: LIDOCAINE 5% (LIDODERM) PATCH TD SCH (08:57)
[2018-07-21] MEDS: HumaLOG INSULIN (NovoLOG) PER UNIT SC SCH ×3 (08:57→17:22)
[2018-07-21] MEDS: FEBUXOSTAT 40 MG TABLET (ULORIC) PO SCH (08:58)
[2018-07-21] MEDS: ASPIRIN 81 MG ENTERIC TAB PO SCH (08:58)
[2018-07-21] MEDS: GEMFIBROZIL 600 MG TAB PO SCH ×2 (08:58→21:29)
[2018-07-21] MEDS: LACTOBACILLUS ACIDOPHILUS CAP (BACID) PO SCH ×2 (08:58→18:13)
[2018-07-21] MEDS: guaiFENesin 200 MG TAB PO SCH ×3 (08:59→21:26)
[2018-07-21] MEDS: FAMOTIDINE 20 MG TAB PO SCH ×2 (08:59→21:30)
[2018-07-21] MEDS: CARVedilol 12.5 MG TAB PO SCH ×2 (09:00→21:30)
[2018-07-21] MEDS ORDERED: POTASSIUM CHLORIDE 10 MEQ SR TABLET PO ONE ×2 (09:00→12:00)
[2018-07-21] MEDS: FIDAXOMICIN 200 MG TAB (DIFICID) PO SCH ×2 (09:00→21:30)
[2018-07-21] MEDS: FOLIC ACID 1 MG TAB PO SCH (09:01)
[2018-07-21] MEDS: CALCITRIOL 0.25 MCG CAP (S0169) PO SCH (09:01)
[2018-07-21] MEDS: ACETAMINOPHEN 500 MG TAB PO SCH ×3 (09:01→21:28)
[2018-07-21] MEDS: amLODIPine 10 MG TAB PO SCH (09:01)
[2018-07-21] MEDS: DIAPER RELIEF PASTE (DESITIN) 60GM TOP SCH ×2 (09:02→21:32)
--- NOTE | 2018-07-21 12:04 | IPN ---
DATE OF VISIT: 07/21/2017 Mr. Isaac is seen this morning on his bedside. He is sitting in the chair this morning and reports that he continues to have loose stools. He is in better spirits today and feels better despite the loose stools. He denies any nausea, vomiting, dyspnea or chest pain. He was started on IV sodium bicarbonate drip yesterday due to worsening metabolic acidosis. On physical examination, temperature 98.8 degrees Fahrenheit, heart rate 76 per minute and respiratory rate 18 per minute. Blood pressure 164/78 mmHg and oxygen saturation 99% on room air. Head is with a healing craniotomy incision. Neck veins are not abnormally distended. There is no oral thrush or ulcers. Heart sounds regular and lungs clear to auscultation. Abdomen is soft and nontender and bowel sounds are normal. Extremities have no cyanosis or clubbing. Neurologically he is awake, alert and oriented times three. Today's labs show WBC count 5.2, hemoglobin 7.1 and hematocrit 22.1. Platelets 152. Sodium 141, potassium 3.4, CO2 18, BUN 25 and creatinine 1.50. Magnesium is 1.5 and calcium 7.1 with albumin 2.0. PROBLEMS: 1. Acute renal failure superimposed on chronic kidney disease. The patient had persistent diarrhea for several days. Kidney function did improve compared to yesterday and we will continue with IV fluid hydration. 2. Metabolic acidosis. His acidosis is improving with sodium bicarbonate infusion which will be continued at 100 mL per hour. 3. Hypokalemia. This is mild and related to IV fluids and correction of metabolic acidosis. The patient has slightly improved oral intake. We encouraged him to drink his orange juice. He will be given one dose of potassium chloride 40 mEq and we will recheck his electrolytes tomorrow morning. 4. Anemia. His anemia did get worse and the patient is going to receive 2 units of packed red blood cells (RBCs). The patient consented for transfusion. 5. Clostridium difficile colitis. The patient continues to have loose stools and he is still on Dificid 200 mg twice a day.
--- NOTE | 2018-07-21 13:13 | IPNPDOC ---
Date Seen The patient was seen on 07/21/18. Progress Note HPI: 68M pnh HTN and DM, left carotid artery stenosis s/p stenting, gout, CAD, ENEDINA, CKD3, recent GIB who initially presented to [facility] on 06/29/18 with reported seizures, arrived with a Arnav Coma Scale of 3, was given loading dose of Dilantin and intubated. CTH showed a right frontal mass so he was transferred to [facility] in [place], [place] for further work-up. At [place] MRI on 06-30-18 showed a 3cm by 3cm right frontal lobe lesion with a hemorrhagic component, possible neoplam or less likley transformation of an infarction. He was found to have leukocytosis which was thought to be from seizure activity and remained afebrile. He had significant hyponatremia, acute on chronic CKD and elevated blood sugars managed with insulin. He was evaluated by neurosurgery and had a resection of his right frontal mass on 07/04/18 after which he was maintained on a Decadron taper and continued on Dilantin for seizure prophylaxis. He was evaluated by therapy and noted to have significant impairment in his ADLs and gait, and was deemed medically appropriate for transfer to [facility] ARU on 07-09-18, as per Dr Young, with pathology pending from his recent tumor resection. Pt reports loose stools still occurring. 5 yesterday. 2 documented today. denies abdominal pain, N/V. Appetite remains decreased. IVF/Sodium Bicarb added as per Dr Mayers. 2 u PRBC ordered as per Nephrology. ID consulted to assist with antibiotic recommendations. UC 07/18 indicated E Coli. Pt received fosfomycin po x 1 dose 07/20/18. UC 07/20 pending. Denies any fevers, chills, weakness, fatigue, STEPHENS, CP, palpitations. PE: GEN: 68yoM, appears stated age. Alert and oriented x 3. HEENT: Normocephalic, healing craniotomy scar. Sclera are nonicteric. Conjunctiva without injection. No facial asymmetry. Moist mucous membranes. CHEST: Regular rate and rhythm, +S1, +S2 LUNGS: Decreased BS but clear bilaterally. No wheezes, rales, or rhonchi appreciated. ABD: Round, soft, non-tender, non-distended. +Bowel sounds throughout. EXT: No lower extremity edema appreciated. SKIN: [place], dry, warm. No rashes. A&P: 1. Frontal cranial mass status post resection at [facility] in [place] on 07/05/2018. Mgmt as per ARU. PT/OT/ST as per ARU Pain control as per ARU DVT prophylaxis as per ARU, SQ Heparin. Outpt F/U with Neurosurgery. Continue on Decadron taper as per Neurosurgery. Continue on Dilantin seizure prophylaxis as per Neurosurgery. Dilantin dose adjusted as per attending to 175 Q8h, repeat Dilantin level 07/26/18. Pt seen by Neurology appreciate any further recommendations. Seizure precautions. Slid OOB 07/14/18- CT head completed with no acute changes. Repeat CT 07/20/18 with no acute changes. 2. C diff. positive Afebrile. WBC 5.2. PO Vanco changed to Dificid 07/16/18. Bacid 2 tab BID. HOLD Bowel care. HOLD PPI. ID consulted for further recommendations. 3. Hypokalemia. po supplement x 2 doses today. Monitor. 4. Hypomagnesemia. mag run today. Monitor mag level. Chronic kidney disease3. Nephrology following. SCr 1.50. Diuretic on hold. IVF/ Sodium Bicarb as per Nephrology. 5. Gout. On Uloric. 6. Hypertension. Norvasc 10 mg daily, carvedilol 37.5 mg BID. Hydralazine 25 mg Q6 with hold parameter. BP 144/62 Monitor. 7. Coronary artery disease. ASA 8. Carotid stenosis, status post endarterectomy. 9. Congestive heart failure. No sign of fluid overload. Diuretic is on hold. Nephrology following. 10. Diabetes. Levemir d/cd 07/19/18, no further hypoglycemia. SSI Monitor 11. Benign prostatic hypertrophy (BPH). Flomax. 12. URI/Respiratory panel Rhinovirus. Afebrile. CXR 07/14/18 NAD. Tylenol/Duoneb/Robitussin. Encourage I/S. Monitor. 13. Anemia. Normocytic. Likely related to chronic disease/CKD. hgb 7.1 this AM. Fe studies, B12, folate 07/14/18. Folate supplement added. PRBC x 2 units today. Monitor. 14. UTI. E Coli pansensitive. UC 07/18/18 resulted 07/20/18 pansensitive E coli. Pt treated with Fosfomycin as per ID. UC 07/20 pending. BC x 2 negative x 24 hrs. WBC 5.2. ID following, appreciate further recommendations. 15. GI prophylaxis. HOLD PPI. Continue pepcid. VS, I&O, 24H, Fishbone Vital Signs/I&O Vital Signs Date Time Temp Pulse Resp B/P (MAP) Pulse Ox O2 Delivery O2 Flow Rate FiO2 07/21/18 12:31 144/62 07/21/18 09:01 76 07/21/18 05:40 98.8 18 99 Room Air I&O- Last 24 Hours up to 6 AM 07/21/18 06:00 Intake Total 2160 ml Output Total 500 ml Balance 1660 ml Laboratory Data 24H LABS Laboratory Tests 2 07/20/18 17:59: Bedside Glucose (Misc Panel) 88 07/20/18 20:24: Bedside Glucose (Misc Panel) 113 07/21/18 05:46: Bedside Glucose (Misc Panel) 132H 07/21/18 06:22: Nucleated Red Blood Cells % (auto) 0.0, Blood Urea Nitrogen 25H, Creatinine 1.50H, Sodium Level 141, Potassium Level 3.4L, Chloride Level 111H, Carbon Di oxide Level 18L, Anion Gap 12, Glomerular Filtration Rate 49.7, Calcium Level 7.1L, Phosphorus Level 2.4#L, Magnesium Level 1.5L, Albumin 2.0L 07/21/18 12:19: Bedside Glucose (Misc Panel) 109 CBC/BMP Laboratory Tests 07/21/18 06:22 Red Blood Count 2.59 L, Mean Corpuscular Volume 85.3, Mean Corpuscular Hemoglobin 27.4, Mean Corpuscular Hemoglobin Concent 32.1, Red Cell Distribution Width 18.9 H, Anion Gap 12 Microbiology Microbiology 07/20/18 Blood Culture - Preliminary, Resulted No growth after 24 hours . All specim... 07/19/18 Blood Culture - Preliminary, Resulted No growth after 24 hours . All specim... 07/19/18 Stool Occult Blood (MAYCOL) - Final, Complete 07/14/18 Respiratory Virus Panel (PCR) (MAYCOL) - Final, Complete Human Rhinovirus/Enterovirus 07/20/18 Urine Culture, Received Pending 07/18/18 Urine Culture - Final, Complete Escherichia Coli Saadia Campbell Jul 21, 2018 13:12
[2018-07-21] MEDS ORDERED: MAG SULF 1GM/100ML (MAG RUN) 1 GM in APPROPRIATE DILUENT 1 EA IV ONE (14:00)
[2018-07-21 14:08] VITALS: BP 138/80
[2018-07-21 20:00] VITALS: BP 174/86
[2018-07-21] MEDS: **NOTE PATIENT COMMENT** MISC XX SCH (21:00)
[2018-07-21] MEDS: TAMSULOSIN 0.4 MG CAP PO SCH (21:30)
--- NOTE | 2018-07-21 22:07 | IPNPDOC ---
PM&R Progress Note DATE OF SERVICE: Jul 20, 2018 [employer] Progress Note Subjective: Patient still with loose stools and fatigue, participation level waxes and wanes. He had episode of uncontrolled HTN and started on Fosfomycin for positive Urine culture. REVIEW OF SYSTEMS: The following is a completed review of systems and has been reviewed. Review of systems otherwise unremarkable. PAIN: Patient self reports bilateral chronic knee pain EYES: Negative for recent vision changes EARS, NOSE, & THROAT: dysphagia (resolved) denies, rhinorrhea CARDIOVASCULAR: +sternal pain, otherwise no palpitations PULMONARY: Negative. Denies shortness of breath, + cough GASTROINTESTINAL:+ diarrhea GENITOURINARY: Negative for dysuria or hematuria, + retention (improving) MUSCULOSKELETAL: bilateral knee OA vs gout NEUROLOGICAL: s/p right frontal lobe resection , seizures HEMATOLOGICAL: Negative SKIN: sacral ulcer PSYCHIATRIC: Unremarkable All other review of systems found to be negative. PHYSICAL EXAMINATION: VITAL SIGNS: Please see below. GENERAL: Pleasant and cooperative. No acute distress. HEENT: PERRL. Extraocular movements intact. Clear conjunctiva, left facial droop (eyebrow sparing) CARDIOVASCULAR: Regular rate and rhythm. No murmurs, rubs, or gallops +TTP sternal palpation LUNGS: Clear to auscultation bilaterally. No wheezes. No rhonchi ABDOMEN: Soft, nontender, nondistended. Positive bowel sounds. Normal active bowel sound NEUROLOGICAL: Alert and oriented times to self and place, not time Cranial nerves II through XII grossly intact. Sensation grossly intact able to follow 2-step commands, however unable to perform Luria, +Apraxia EXTREMITIES:5\5 strength bilateral upper extremities. >3/5 bilateral hip flexors and knee extensors, 5/5 bilateral ankle DF and EHL Bilateral knees warm to touch with effusion SKIN: sacral ulcer, right frontal craniotonomy incision c/d/i ASSESSMENT:68-year-old M with past medical history of ENEDINA, HTN, CAD who presents status post right frontal mass resection with seizures. PLAN: 1. rehab: PTOT, TEASELER advance diet, assess for DME- significant apraxia, able to participate more in therapy, ambulating with RW close supervision 2. Neuro:s/p right frontal mass resection, pathology per negative however awaiting offical results results, Dilantin for seizures 125q8h, however levels low at 9.1, increased to 150 qh on 07/12/18 and on 07/19/18 8.6 will increase to 175q8h and recheck 07/26/18 - neuro consult recs appreciated, finishing up Decadron taper more quickly and will consider transition to Depakote given his impaired renal function -will need outpatient neuro f/u 2-4 weeks from discharge to review scans from [facility] and consider carotid US, he is s/p left CEA performed in by Dr. Rosa and currently has right carotid artery stenosis -[facility] surgery follow-up until 08/05/18 at 9:[address] Telol 3. Cardio: pmh HTn and HLD, hx of CHF, continue home med, diuretics on hold per renal recs- medicine consulted 4. Resp: Enedina non-compliant with CPAP, will provide nocturnal 02, will order chest X-ray for coughing today on exam- continue Guaifenesin and duonebs 5. Endo: pmh DM continue home meds and adjust prn 6. Rheum: pmh gout, continue Uloric 7. DVY ppx: continue heparin 8. GI ppx: omeprazole, patient found to have +C diff , given persistent diarrhea on Vancomycin, switched to Difficit 200mg BID x 10 days with improvement in leukocytosis, overall very fatigued and diarrhea slightly better, s/p IVF for GI losses -however residual leukocytosis may be from Decadron 9. : admission UA and Ucx negative monitor PVRs- repeat Ua and Ucx positive for E. Coli, ID consulted, continue Fosfomycin, recs appreciated, renal consulted for retention and metabolic acidosis requiring Bicarb drips recs appreciated 10. Pain: patient with headaches, Tylenol and Fiorcet prn 11. Dispo: 08/02/18, progressing towards goals - concerned about cleanliness of his room, bathroom, and lack of overall showering-discussed need for room cleaning with staff and ordered showers every other day Allergies Coded Allergies: No Known Allergies (Verified , 03/30/18) Vital Signs Vital Signs Date Time Temp Pulse Resp B/P (MAP) Pulse Ox O2 Delivery O2 Flow Rate FiO2 07/21/18 21:30 71 174/86 07/21/18 14:08 98.9 18 99 07/21/18 05:40 Room Air Laboratory Data CBC/BMP Laboratory Tests 07/21/18 06:22 Red Blood Count 2.59 L, Mean Corpuscular Volume 85.3, Mean Corpuscular Hemoglobin 27.4, Mean Corpuscular Hemoglobin Concent 32.1, Red Cell Distribution Width 18.9 H, Anion Gap 12 Labs 24H Laboratory Tests 2 07/21/18 05:46: Bedside Glucose (Misc Panel) 132H 07/21/18 06:22: Nucleated Red Blood Cells % (auto) 0.0, Blood Urea Nitrogen 25H, Creatinine 1.50H, Sodium Level 141, Potassium Level 3.4L, Chloride Level 111H, Carbon Dioxide Level 18L, Anion Gap 12, Glomerular Filtration Rate 49.7, Calcium Level 7.1L, Phosphorus Level 2.4#L, Magnesium Level 1.5L, Albumin 2.0L 07/21/18 12:19: Bedside Glucose (Misc Panel) 109 07/21/18 17:05: Bedside Glucose (Misc Panel) 174H 07/21/18 19:57: Bedside Glucose (Misc Panel) 98 Microbiology Microbiology 07/20/18 Blood Culture - Preliminary, Resulted No growth after 24 hours . All specim... 07/19/18 Blood Culture - Preliminary, Resulted No growth after 24 hours . All specim... 07/19/18 Stool Occult Blood (MAYCOL) - Final, Complete 07/14/18 Respiratory Virus Panel (PCR) (MAYCOL) - Final, Complete Human Rhinovirus/Enterovirus 07/20/18 Urine Culture, Received Pending 07/18/18 Urine Culture - Final, Complete Escherichia Coli Current Medications Current Medications Current Medications Acetaminophen (Tylenol Tab) 650 mg DAILY PRN PO fever; Start 07/09/18 at 21:00 Acetaminophen (Tylenol Tab) 1,000 mg TID PO Last administered on 07/21/18at 21:28; Start 07/09/18 at 21:00 Acetaminophen/ Butalbital/ Caffeine (Fioricet) 1 ea Q6HP PRN PO HEADACHE Last administered on 07/12/18at 12:58; Start 07/12/18 at 11:00 Albuterol/ Ipratropium (Duoneb (Ipr 0.5mg/Alb 2.5mg)) 3 ml BID NEB ; Start 07/14/18 at 21:00; Status UNV Albuterol/ Ipratropium (Duoneb (Ipr 0.5mg/Alb 2.5mg)) 3 ml RBID NEB Last administered on 07/21/18 20:21; Start 07/10/18 at 08:00 Amlodipine Besylate (Norvasc) 10 mg DAILY PO Last administered on 07/21/18 09:01; Start 07/10/18 at 09:00 Aspirin (Ecotrin) 81 mg DAILY PO Last administered on 07/21/18 08:58; Start 07/10/18 at 09:00 Bisacodyl (Dulcolax Suppository) 10 mg DAILYPRN PRN HI CONSTIPATION; Start at 21:15; Stop 07/20/18 at 14:26; Status DC Calcitriol (Rocaltrol) 0.25 mcg DAILY PO Last administered on 07/21/18 09:01; Start 07/10/18 at 09:00 Calcium Carbonate (Tums) 500 mg DAILYPRN PRN PO INDIGESTION Last administered on 07/20/18 01:22; Start 07/19/18 at 20:00 Carvedilol (COReg) 12.5 mg BID PO Last administered on 07/14/18 09:03; Start 07/09/18 at 21:00; Stop 07/14/18 at 11:08; Status DC Carvedilol (COReg) 25 mg BID PO Last administered on 07/19/18 08:40; Start 07/14/18 at 21:00; Stop 07/19/18 at 10:30; Status DC Carvedilol (COReg) 37.5 mg BID PO Last administered on 07/21/18 21:30; Start 07/19/18 at 21:00 Cefepime HCl 1 gm/ Dextrose 50 ml @ 100 mls/hr Q24H IV Last administered on 07/20/18 15:15; Start 07/20/18 at 13:00; Stop 07/20/18 at 19:38; Status DC Cod Liver Oil/ Zinc Oxide (Desitin) apply to sacrum BID TOP Last administered on 07/21/18 21:32; Start 07/10/18 at 09:00 Dexamethasone (Decadron) 2 mg DAILY PO Last administered on 07/20/18 10:34; Start 07/16/18 at 09:00; Stop 07/21/18 at 08:59; Status DC Dexamethasone (Decadron) 2 mg DAILY PO ; Start 07/18/18 at 09:00; Stop 07/18/18 at 09:00; Status DC Dexamethasone (Decadron) 2 mg Q12H PO Last administered on 07/15/18at 21:09; Start 07/13/18 at 21:00; Stop 07/15/18 at 21:55; Status DC Dexamethasone (Decadron) 4 mg Q12H PO Last administered on 07/13/18at 08:35; Start 07/09/18 at 21:00; Stop 07/13/18 at 20:59; Status DC Dextrose (Dextrose 50%) 25 ml ASDIRECTED PRN IV SEE LABEL COMMENTS; Start 07/09/18 at 21:00 Famotidine (Pepcid) 10 mg BID PO Last administered on 07/21/18at 21:30; Start 07/12/18 at 15:00 Febuxostat (Uloric) 120 mg DAILY PO Last administered on 07/21/18at 08:58; Star t 07/10/18 at 09:00 Fidaxomicin (Dificid) 200 mg BID PO Last administered on 07/21/18at 21:30; Start 07/16/18 at 11:45; Stop 07/25/18 at 21:01 Folic Acid (Folic Acid) 1 mg DAILY PO Last administered on 07/21/18at 09:01; Start 07/16/18 at 09:00 Fosfomycin Tromethamine (Monurol) 3 gm Q2D PO ; Start 07/22/18 at 09:00; Stop 07/24/18 at 12:00 Gemfibrozil (Lopid) 600 mg BID PO Last administered on 07/21/18at 21:29; Start 07/09/18 at 21:00 Glucagon (Glucagon) 1 mg ASDIRECTED PRN SC SEE LABEL COMMENTS; Start 07/09/18 at 21:00 Glucose (Glucose) 16 GM ASDIRECTED PRN PO SEE LABEL COMMENTS; Start 07/09/18 at 21:00 Guaifenesin (Robitussin Tab) 400 mg TID PO Last administered on 07/21/18at 21:26; Start 07/10/18 at 09:00 Guaifenesin (Robitussin Tab) 400 mg TID PO ; Start 07/14/18 at 21:00; Stop 07/14/18 at 21:00; Status DC Heparin Sodium (Porcine) (Heparin) 5,000 units Q8H SQ Last administered on 07/21at 21:27; Start 07/09/18 at 22:00 Home Med (Med Rec Complete!) ASDIRECTED XX ; Start 07/09/18 at 23:00; Stop 07/09/18 at 23:00; Status DC Hydralazine HCl (Apresoline) 25 mg Q6H PO Last administered on 07/21/18 18:13; Start 07/20/18 at 12:00 Insulin Detemir (Levemir Insulin) 10 units QHS SC Last administered on 07/16/18 21:49; Start 07/15/18 at 21:00; Stop 07/19/18 at 13:01; Status DC Insulin Detemir (Levemir Insulin) 20 units QHS SC Last administered on 07/14/18at 22:04; Start 07/09/18 at 21:00; Stop 07/15/18 at 14:20; Status DC Insulin Human Lispro (HumaLOG INSULIN) SEE PROTOCOL TABLE AC SC Last administered on 07/21/18 08:57; Start 07/10/18 at 07:30 Lactobacillus Acidophilus (Bacid) 1 ea BIDWM PO Last administered on 07/14/18at 08:59; Start 07/11/18 at 08:00; Stop 07/14/18 at 13:09; Status DC Lactobacillus Acidophilus (Bacid) 2 ea BIDWM PO Last administered on 07/21/18at 18:13; Start 07/14/18 at 18:00 Lidocaine (Lidoderm Patch) 1 patch DAILY TD Last administered on 07/21/18 08:57; Start 07/10/18 at 09:00 Lorazepam (Ativan) 2 mg Q6H PRN IV SEIZURES; Start 07/10/18 at 02:30 Magnesium Hydroxide (Milk Of Magnesia) 30 ml DAILYPRN PRN PO CONSTIPATION; Start 07/09/18 at 21:15; Stop 07/20/18 at 14:26; Status DC Metronidazole (Flagyl) 500 mg Q8H PO Last administered on 07/11/18at 05:01; Start 07/11/18 at 04:00; Stop 07/11/18 at 07:12; Status DC Miscellaneous (Unresolved Clarification Entry) SEE LABEL COMMENTS DAILY XX ; Start 07/21/18 at 09:00 Non-Formulary Medication ( See Comment Field Below ) REMOVE LIDODERM PATCH DAILY@21 XX Last administered on 07/21/18at 21:00; Start 07/09/18 at 21:00 Omeprazole (PriLOSEC) 40 mg QHS PO Last administered on 07/11/18at 22:26; Start 07/09/18 at 21:00; Stop 07/12/18 at 14:39; Status DC Ondansetron HCl (Zofran) 4 mg Q6HP PRN PO NAUSEA; Start 07/09/18 at 21:15 Phenytoin (Dilantin Chewable) 125 mg Q8H PO Last administered on 07/12/18at 05:49; Start 07/09/18 at 22:00; Stop 07/12/18 at 10:30; Status DC Phenytoin (Dilantin Chewable) 150 mg Q8H PO Last administered on 07/19/18at 13:01; Start 07/12/18 at 14:00; Stop 07/19/18 at 15:37; Status DC Phenytoin (Dilantin Chewable) 175 mg Q8H PO Last administered on 07/21/18at 21:27; Start 07/19/18 at 22:00 Potassium Chloride (Micro-K Extencaps) 20 meq DAILY PO Last administered on 07/17/18at 10:19; Start 07/12/18 at 09:00; Stop 07/17/18 at 11:48; Status DC Senna/Docusate Sodium (Senokot S) 1 tab BID PO Last administered on 07/11/18 22:23; Start 07/10/18 at 09:00; Stop 07/12/18 at 14:39; Status DC Sodium Bicarbonate 150 meq/Sterile Water 1,150 ml @ 100 mls/hr [id number] IV Last administered on 07/21/18at 17:23; Start 07/20/18 at 09:00 Tamsulosin HCl (Flomax) 0.4 mg QHS PO Last administered on 07/21/18at 21:30; Start 07/09/18 at 21:00 Torsemide (Demadex) 50 mg BID@09,17 PO ; Start 07/10/18 at 09:00; Stop 07/10/18 at 09:24; Status DC Trazodone HCl (Desyrel) 25 mg QHSP PRN PO INSOMNIA Last administered on 07/17/18at 21:57; Start 07/09/18 at 21:00 Vancomycin HCl (First-Vancomycin 50(Firvanq)- 250mg/5ml) 125 mg Q6H PO Last administered on 07/16/18at 05:44; Start 07/11/18 at 06:00; Stop 07/16/18 at 11:37; Status DC Zinc Oxide (Boudreauxs Butt Paste) sacrum BID TOP ; Start 07/10/18 at 09:00; Stop 07/10/18 at 13:02; Status DC ESTRELLITA STANTON MD Jul 21, 2018 22:07
[2018-07-21] MEDS: traZODone 25MG PER 1/2 TABLET PO PRN (23:46)
[2018-07-22] MEDS: SODIUM BICARBONATE 150 MEQ in STERILE WATER LITER BAG 1,000 ML IV SCH ×2 (05:12→17:42)
[2018-07-22] MEDS: PHENYTOIN 50 MG CHEW TABLET PO SCH ×3 (05:13→21:21)
[2018-07-22] MEDS: **hydrALAZINE HCL** 25 MG TAB PO SCH ×4 (05:13→22:54)
[2018-07-22] MEDS: HEPARIN SOD (PORCINE) 5000 UNITS/ML VIAL SQ SCH ×3 (05:14→21:31)
[2018-07-22 06:00] VITALS: BP 172/88
[2018-07-22 07:24] LABS: HEMATOCRIT 26.5 % (42.0-52.0); HEMOGLOBIN 8.8 g/dl (13.5-17.5); MEAN CORPUSCULAR HEMOGLOBIN 27.8 pg (27.0-33.0); MEAN CORPUSCULAR HGB CONC 33.2 g/dl (32.0-36.5); MEAN CORPUSCULAR VOLUME 83.9 fl (80.0-96.0); PLATELET COUNT, AUTOMATED 176 10^3/uL (150-450); RED BLOOD COUNT 3.16 10^6/uL (4.30-6.10); WHITE BLOOD COUNT 5.2 10^3/uL (4.0-10.0)
[2018-07-22 07:43] LABS: ALT/SGPT 12 U/L (12-78); BILIRUBIN,TOTAL 0.4 MG/DL (0.2-1.0); BLOOD UREA NITROGEN 18 MG/DL (7-18); CALCIUM LEVEL 7.2 MG/DL (8.8-10.2); CARBON DIOXIDE LEVEL 26 MEQ/L (21-32); CHLORIDE LEVEL 108 MEQ/L (98-107); CREATININE FOR GFR 1.15 MG/DL (0.70-1.30); GLOMERULAR FILTRATION RATE > 60.0 (>49); GLUCOSE, FASTING 127 MG/DL (70-100); MAGNESIUM LEVEL 1.6 MG/DL (1.8-2.4); PHOSPHORUS LEVEL 2.3 MG/DL (2.5-4.9); POTASSIUM SERUM 3.6 MEQ/L (3.5-5.1); SODIUM LEVEL 141 MEQ/L (136-145); TOTAL PROTEIN 5.7 GM/DL (6.4-8.2)
[2018-07-22] MEDS: IPRATROPIUM 0.5MG/ALBUTEROL 2.5MG INH SOL UD 3ML (DUONEB)(J7620) NEB SCH ×2 (07:44→19:39)
[2018-07-22 08:04] LABS: ERYTHROCYTE SEDIMENTATION RATE 70 mm/hr (0-20)
[2018-07-22] MEDS: FOSFOMYCIN TROMETHAMINE 3 GM POWDER PACKET (MONUROL) PO SCH (08:54)
[2018-07-22] MEDS: LIDOCAINE 5% (LIDODERM) PATCH TD SCH (08:54)
[2018-07-22] MEDS: HumaLOG INSULIN (NovoLOG) PER UNIT SC SCH ×3 (08:55→17:30)
[2018-07-22] MEDS: guaiFENesin 200 MG TAB PO SCH ×3 (08:55→21:22)
[2018-07-22] MEDS: FEBUXOSTAT 40 MG TABLET (ULORIC) PO SCH (08:59)
[2018-07-22] MEDS: GEMFIBROZIL 600 MG TAB PO SCH ×2 (08:59→21:28)
[2018-07-22] MEDS: amLODIPine 10 MG TAB PO SCH (08:59)
[2018-07-22] MEDS: CALCITRIOL 0.25 MCG CAP (S0169) PO SCH (08:59)
[2018-07-22] MEDS: ASPIRIN 81 MG ENTERIC TAB PO SCH (09:00)
[2018-07-22] MEDS ORDERED: MAG SULF 1GM/100ML (MAG RUN) 1 GM in APPROPRIATE DILUENT 1 EA IV ONE (09:00)
[2018-07-22] MEDS: FAMOTIDINE 20 MG TAB PO SCH ×2 (09:00→21:25)
[2018-07-22] MEDS: LACTOBACILLUS ACIDOPHILUS CAP (BACID) PO SCH ×2 (09:00→17:42)
[2018-07-22] MEDS: CARVedilol 12.5 MG TAB PO SCH ×2 (09:01→21:25)
[2018-07-22] MEDS: FOLIC ACID 1 MG TAB PO SCH (09:01)
[2018-07-22] MEDS: ACETAMINOPHEN 500 MG TAB PO SCH ×3 (09:02→21:28)
[2018-07-22] MEDS: FIDAXOMICIN 200 MG TAB (DIFICID) PO SCH ×2 (09:03→21:28)
[2018-07-22] MEDS: DIAPER RELIEF PASTE (DESITIN) 60GM TOP SCH ×2 (09:03→21:00)
--- NOTE | 2018-07-22 13:32 | IPNPDOC ---
Date Seen The patient was seen on 07/22/18. Progress Note HPI: 68M pnh HTN and DM, left carotid artery stenosis s/p stenting, gout, CAD, ENEDINA, CKD3, recent GIB who initially presented to [facility] on 06/29/18 with reported seizures, arrived with a Arnav Coma Scale of 3, was given loading dose of Dilantin and intubated. CTH showed a right frontal mass so he was transferred to [facility] in [place], [place] for further work-up. At [place] MRI on 06-30-18 showed a 3cm by 3cm right frontal lobe lesion with a hemorrhagic component, possible neoplam or less likley transformation of an infarction. He was found to have leukocytosis which was thought to be from seizure activity and remained afebrile. He had significant hyponatremia, acute on chronic CKD and elevated blood sugars managed with insulin. He was evaluated by neurosurgery and had a resection of his right frontal mass on 07/04/18 after which he was maintained on a Decadron taper and continued on Dilantin for seizure prophylaxis. He was evaluated by therapy and noted to have significant impairment in his ADLs and gait, and was deemed medically appropriate for transfer to [facility] ARU on 07-09-18, as per Dr Young, with pathology pending from his recent tumor resection. Pt reports loose stools still occurring. 5 yesterday. 3 documented so far today. denies abdominal pain, N/V. Appetite remains decreased. IVF/Sodium Bicarb added as per Dr Mayers. 2 u PRBC ordered as per Nephrology 07/21/18. ID consulted to assist with antibiotic recommendations. Fosfomycin as per ID. UC 07/18 indicated E Coli. UC 07/20 E coli. Denies any fevers, chills, weakness, fatigue, STEPHENS, CP, palpitations. PE: GEN: 68yoM, appears stated age. Alert and oriented x 3. HEENT: Normocephalic, healing craniotomy scar. Sclera are nonicteric. Conjunctiva without injection. No facial asymmetry. Moist mucous membranes. CHEST: Regular rate and rhythm, +S1, +S2 LUNGS: Decreased BS but clear bilaterally. No wheezes, rales, or rhonchi appreciated. ABD: Round, soft, non-tender, non-distended. +Bowel sounds throughout. EXT: No lower extremity edema appreciated. SKIN: [place], dry, warm. No rashes. A&P: 1. Frontal cranial mass status post resection at [facility] in [place] on 07/05/2018. Mgmt as per ARU. PT/OT/ST as per ARU Pain control as per ARU DVT prophylaxis as per ARU, SQ Heparin. Outpt F/U with Neurosurgery. Continue on Decadron taper as per Neurosurgery. Continue on Dilantin seizure prophylaxis as per Neurosurgery. Dilantin dose adjusted as per attending to 175 Q8h, repeat Dilantin level 07/26/18. Pt seen by Neurology appreciate any further recommendations. Seizure precautions. Slid OOB 07/14/18- CT head completed with no acute changes. Repeat CT 07/20/18 with no acute changes. 2. C diff. positive Afebrile. WBC 5.2. PO Vanco changed to Dificid 07/16/18. Dificid D 12/29. Bacid 2 tab BID. HOLD Bowel care. HOLD PPI. ID consulted for further recommendations. 3. Hypokalemia. S/P po supplement . Monitor. 4. Hypomagnesemia. mag run x 1 today. Monitor mag level. Chronic kidney disease3. Nephrology following. SCr 1.15. trend improved. Diuretic on hold. IVF/ Sodium Bicarb as per Nephrology. 5. Gout. On Uloric. 6. Hypertension. Norvasc 10 mg daily, carvedilol 37.5 mg BID. Hydralazine 25 mg Q6 with hold parameter. Monitor. 7. Coronary artery disease. ASA 8. Carotid stenosis, status post endarterectomy. 9. Congestive heart failure. No sign of fluid overload. Diuretic is on hold. Nephrology following. 10. Diabetes. Levemir d/cd 07/19/18, no further hypoglycemia. SSI Monitor 11. Benign prostatic hypertrophy (BPH). Flomax. 12. URI/Respiratory panel Rhinovirus. Afebrile. CXR 07/14/18 NAD. Tylenol/Duoneb/Robitussin. Encourage I/S. Monitor. 13. Anemia. Normocytic. Likely related to chronic disease/CKD. hgb 8.8 this AM. Fe studies, B12, folate 07/14/18. Folate supplement added. PRBC x 2 units 07/21. Monitor. 14. UTI. E Coli pansensitive. UC 07/18/18 pansensitive E coli. 07/20 E coli Pt treated with Fosfomycin as per ID. BC x 2 negative x 24 hrs. WBC 5.2. ID following, appreciate further recommendations. 15. GI prophylaxis. HOLD PPI. Continue pepcid. VS, I&O, 24H, Fishbone Vital Signs/I&O Vital Signs Date Time Temp Pulse Resp B/P (MAP) Pulse Ox O2 Delivery O2 Flow Rate FiO2 07/22/18 12:13 178/80 07/22/18 09:01 80 07/22/18 06:00 97.6 18 97 07/21/18 05:40 Room Air I&O- Last 24 Hours up to 6 AM 07/22/18 06:00 Intake Total 4390 ml Output Total 875 ml Balance 3515 ml Laboratory Data 24H LABS Laboratory Tests 2 07/21/18 17:05: Bedside Glucose (Misc Panel) 174H 07/21/18 19:57: Bedside Glucose (Misc Panel) 98 07/22/18 07:03: Nucleated Red Blood Cells % (auto) 0.0, Erythrocyte Sedimentation Rate 70H, Anion Gap 7L, Glomerular Filtration Rate > 60.0, Blood Urea Nitrogen 18, Creatinine 1.15, Sodium Level 141, Potassium Level 3.6, Chloride Level 108H, Carbon Dioxide Level 26, Calcium Level 7.2L, Phosphorus Level 2.3L, Aspartate Amino Transf (AST/SGOT) 9, Alanine Aminotransferase (ALT/SGPT) 12, Alkaline Phosphatase 135H, Total Bilirubin 0.4, Total Protein 5.7L, Albumin 2.0L, Magnesium Level 1.6L, C-Reactive Protein, Quantitative 12.30H, Albumin/Globulin Ratio 0.54L 07/22/18 07:18: Bedside Glucose (Misc Panel) 127H 07/22/18 11:55: Bedside Glucose (Misc Panel) 89 CBC/BMP Laboratory Tests 07/22/18 07:03 Red Blood Count 3.16 L, Mean Corpuscular Volume 83.9, Mean Corpuscular Hemoglobin 27.8, Mean Corpuscular Hemoglobin Concent 33.2, Red Cell Distribution Width 17.6 H, Calcium Level 7.2 L, Phosphorus Level 2.3 L, Aspartate Amino Transf (AST/SGOT) 9, Alanine Aminotransferase (ALT/SGPT) 12, Alkaline Phosphatase 135 H, Total Bilirubin 0.4, Total Protein 5.7 L, Albumin 2.0 L Microbiology Microbiology 07/20/18 Blood Culture - Preliminary, Resulted No Growth after 48 hours. All Specime... 07/19/18 Blood Culture - Preliminary, Resulted No Growth after 48 hours. All Specime... 07/19/18 Stool Occult Blood (MAYCOL) - Final, Complete 07/14/18 Respiratory Virus Panel (PCR) (MAYCOL) - Final, Complete Human Rhinovirus/Enterovirus 07/20/18 Urine Culture - Final, Complete Escherichia Coli 07/18/18 Urine Culture - Final, Complete Escherichia Coli Saadia Campbell Jul 22, 2018 13:32
[2018-07-22 14:00] VITALS: BP 155/82
--- NOTE | 2018-07-22 17:18 | IPN ---
DATE: 07/22/2018 Mr. Isaac is seen this morning on his bedside. He remains on sodium bicarbonate infusion due to metabolic acidosis caused by diarrhea. He was also given two units of packed red blood cells (RBCs) yesterday due to worsening anemia. The patient is sitting at the edge of bed this morning and seems in better spirits and stronger. Physical therapist reports that the patient walked about 300 feet in the hallway today. He denies any dyspnea, chest pain, nausea or vomiting but does have loose stools. He remains on Dificid for Clostridium (C) difficile colitis. PHYSICAL EXAMINATION: Temperature 97.6 degrees Fahrenheit, heart rate 80 per minute and respiratory rate 18 per minute. Blood pressure 172/80 mmHg and oxygen saturation 97% on room air. His craniotomy incisions are nicely healed. Neck is supple and without jugular venous distention (JVD) or thyroid enlargement. There is no oral thrush or ulcers. Heart sounds are regular. Lungs sound clear to auscultation. Abdomen is soft and nontender and bowel sounds are normal. Extremities have no cyanosis or clubbing. Skin has no rash or ulcers. Neurologically, he is awake, alert and oriented times three. LABORATORY DATA: Today's laboratories show WBC count 5.2, hemoglobin 8.8 and hematocrit 26.5. Platelets 176. Sodium 141, potassium 3.6, CO2 26, BUN 18 and creatinine 1.15. Glucose 127 and calcium 7.2. Phosphorus is 2.3 and magnesium 1.6. PROBLEMS: 1. Severe metabolic acidosis. This was related to ongoing diarrhea and has improved with sodium bicarbonate infusion. I am going to cut down his IV fluid to 60 mL per hour. I will consider to stop tomorrow if his diarrhea improves. 2. Hypokalemia. Potassium level has also corrected and he will remain on regular potassium diet. 3. Acute renal failure, superimposed on chronic kidney disease. Kidney function has improved significantly with IV fluid hydration. We will continue to monitor on a daily basis. 4. Anemia. The patient had worsening anemia which improved after transfusion of two units of packed red blood cells (RBCs). He does have a history of iron deficiency. However, at this point, I am not going to give him intravenous iron as he has acute medical problems. We will wait until he is improved and then give him a dose of intravenous iron prior to discharge. 5. Clostridium (C) difficile colitis with ongoing diarrhea. The patient did not respond very well to oral vancomycin and he is also not responding well to Dificid so far. His diarrhea did slow down but has not resolved as yet. We will continue and complete 10 days of Dificid. If this fails then he will be considered for a fecal transplant. 6. Generalized weakness and deconditioning following craniotomy and frontal lobe lobectomy. The patient is improving and his spirits have improved along with physical strength. I have encouraged him to continue with good nutrition.
[2018-07-22] MEDS ORDERED: cloNIDine 0.2 MG TAB PO ONE (19:00)
[2018-07-22 19:36] VITALS: BP 180/90
[2018-07-22] MEDS: **NOTE PATIENT COMMENT** MISC XX SCH (21:00)
[2018-07-22] MEDS: TAMSULOSIN 0.4 MG CAP PO SCH (21:28)
[2018-07-22] MEDS: traZODone 25MG PER 1/2 TABLET PO PRN (22:54)
[2018-07-23 05:50] VITALS: BP 170/80
[2018-07-23] MEDS: **hydrALAZINE HCL** 25 MG TAB PO SCH (05:52)
[2018-07-23] MEDS: PHENYTOIN 50 MG CHEW TABLET PO SCH ×3 (05:54→20:54)
[2018-07-23] MEDS: HEPARIN SOD (PORCINE) 5000 UNITS/ML VIAL SQ SCH ×3 (05:54→20:54)
[2018-07-23 06:19] LABS: HEMATOCRIT 30.2 % (42.0-52.0); HEMOGLOBIN 9.9 g/dl (13.5-17.5); MEAN CORPUSCULAR HEMOGLOBIN 28.2 pg (27.0-33.0); MEAN CORPUSCULAR HGB CONC 32.8 g/dl (32.0-36.5); PLATELET COUNT, AUTOMATED 209 10^3/uL (150-450); RED BLOOD COUNT 3.51 10^6/uL (4.30-6.10); WHITE BLOOD COUNT 6.2 10^3/uL (4.0-10.0)
[2018-07-23 06:49] LABS: ALBUMIN 2.1 GM/DL (3.2-5.2); ALT/SGPT 12 U/L (12-78); BILIRUBIN,TOTAL 0.5 MG/DL (0.2-1.0); BLOOD UREA NITROGEN 13 MG/DL (7-18); CALCIUM LEVEL 7.5 MG/DL (8.8-10.2); CARBON DIOXIDE LEVEL 29 MEQ/L (21-32); CHLORIDE LEVEL 101 MEQ/L (98-107); CREATININE FOR GFR 1.02 MG/DL (0.70-1.30); GLOMERULAR FILTRATION RATE > 60.0 (>49); GLUCOSE, FASTING 101 MG/DL (70-100); MAGNESIUM LEVEL 1.9 MG/DL (1.8-2.4); POTASSIUM SERUM 3.6 MEQ/L (3.5-5.1); SODIUM LEVEL 141 MEQ/L (136-145); TOTAL PROTEIN 5.8 GM/DL (6.4-8.2)
[2018-07-23] MEDS: HumaLOG INSULIN (NovoLOG) PER UNIT SC SCH ×3 (07:30→17:28)
[2018-07-23] MEDS: IPRATROPIUM 0.5MG/ALBUTEROL 2.5MG INH SOL UD 3ML (DUONEB)(J7620) NEB SCH ×2 (07:33→19:27)
[2018-07-23] MEDS ORDERED: SODIUM BICARBONATE 150 MEQ in STERILE WATER LITER BAG 1,000 ML IV SCH (08:00)
[2018-07-23] MEDS: guaiFENesin 200 MG TAB PO SCH ×3 (08:12→20:53)
[2018-07-23] MEDS: LACTOBACILLUS ACIDOPHILUS CAP (BACID) PO SCH ×2 (08:12→17:45)
[2018-07-23] MEDS: FIDAXOMICIN 200 MG TAB (DIFICID) PO SCH ×2 (08:12→20:52)
[2018-07-23] MEDS: CARVedilol 12.5 MG TAB PO SCH ×2 (08:13→20:52)
[2018-07-23] MEDS: ACETAMINOPHEN 500 MG TAB PO SCH ×3 (08:13→20:53)
[2018-07-23] MEDS: CALCITRIOL 0.25 MCG CAP (S0169) PO SCH (08:13)
[2018-07-23] MEDS: FEBUXOSTAT 40 MG TABLET (ULORIC) PO SCH (08:14)
[2018-07-23] MEDS: GEMFIBROZIL 600 MG TAB PO SCH ×2 (08:14→20:52)
[2018-07-23] MEDS: FAMOTIDINE 20 MG TAB PO SCH ×2 (08:14→20:52)
[2018-07-23] MEDS: ASPIRIN 81 MG ENTERIC TAB PO SCH (08:14)
[2018-07-23] MEDS: FOLIC ACID 1 MG TAB PO SCH (08:14)
[2018-07-23] MEDS: amLODIPine 10 MG TAB PO SCH (08:14)
[2018-07-23] MEDS: DIAPER RELIEF PASTE (DESITIN) 60GM TOP SCH ×2 (08:15→20:54)
[2018-07-23] MEDS: LIDOCAINE 5% (LIDODERM) PATCH TD SCH (08:15)
--- NOTE | 2018-07-23 11:34 | REP ---
Right upper extremity duplex Doppler venous ultrasound. Real time compression and duplex Doppler evaluation of the right upper extremity deep venous system is performed. The right subclavian, jugular, axillary, brachial, basilic and cephalic veins are fully compressible where accessible with transducer pressure, and demonstrate no intraluminal thrombus and normal venous waveforms. There is no evidence of deep venous thrombosis. Impression: No evidence of deep venous thrombosis of the right upper extremity deep vein system. Electronically Signed by Torres Reyes MD 07/23/2018 11:26 A
--- NOTE | 2018-07-23 11:42 | REP ---
Clinical: Pain and swelling. Technique: AP, lateral, bilateral oblique views of the right hand. Findings: Generalized age-related arthritic changes are appreciated. Scattered peripheral vascular disease noted. No acute fracture or dislocation. No subcutaneous emphysema or foreign body. Impression: Generalized degenerative changes and evidence for peripheral vascular disease. Electronically Signed by Christopher Bautista MD 07/23/2018 11:34 A
--- NOTE | 2018-07-23 11:45 | IPNPDOC ---
Date Seen The patient was seen on 07/23/18. Progress Note HPI: 68M pnh HTN and DM, left carotid artery stenosis s/p stenting, gout, CAD, ENEDINA, CKD3, recent GIB who initially presented to [facility] on 06/29/18 with reported seizures, arrived with a Arnav Coma Scale of 3, was given loading dose of Dilantin and intubated. CTH showed a right frontal mass so he was transferred to [facility] in [place], [place] for further work-up. At [place] MRI on 06-30-18 showed a 3cm by 3cm right frontal lobe lesion with a hemorrhagic component, possible neoplam or less likley transformation of an infarction. He was found to have leukocytosis which was thought to be from seizure activity and remained afebrile. He had significant hyponatremia, acute on chronic CKD and elevated blood sugars managed with insulin. He was evaluated by neurosurgery and had a resection of his right frontal mass on 07/04/18 after which he was maintained on a Decadron taper and continued on Dilantin for seizure prophylaxis. He was evaluated by therapy and noted to have significant impairment in his ADLs and gait, and was deemed medically appropriate for transfer to [facility] on 07-09-18, as per Dr Young, with pathology pending from his recent tumor resection. Pt reports loose stools still occurring. 3 yesterday. 2 documented so far today. denies abdominal pain, N/V. Appetite remains decreased. IVF/Sodium Bicarb D/Cd today per Dr Mayers. 2 u PRBC 07/21/18. ID consulted to assist with antibiotic recommendations. Fosfomycin as per ID. UC 07/18 indicated E Coli. UC 07/20 E coli. Denies any fevers, chills, weakness, fatigue, STEPHENS, CP, palpitations. PE: GEN: 68yoM, appears stated age. Alert and oriented x 3. HEENT: Normocephalic, healing craniotomy scar. Sclera are nonicteric. Conjunctiva without injection. No facial asymmetry. Moist mucous membranes. CHEST: Regular rate and rhythm, +S1, +S2 LUNGS: Decreased BS but clear bilaterally. No wheezes, rales, or rhonchi appreciated. ABD: Round, soft, non-tender, non-distended. +Bowel sounds throughout. EXT: trace lower extremity edema appreciated. Rt hand edematous (possible IV infiltration) no erythema or warmth. SKIN: [place], dry, warm. No rashes. A&P: 1. Frontal cranial mass status post resection at [facility] in [place] on 07/05/2018. Mgmt as per ARU. PT/OT/ST as per ARU Pain control as per ARU DVT prophylaxis as per ARU, SQ Heparin. Outpt F/U with Neurosurgery. Continue on Decadron taper as per Neurosurgery. Continue on Dilantin seizure prophylaxis as per Neurosurgery. Dilantin dose adjusted as per attending to 175 Q8h, repeat Dilantin level 07/26/18. Pt seen by Neurology appreciate any further recommendations. Seizure precautions. Slid OOB 07/14/18- CT head completed with no acute changes. Repeat CT 07/20/18 with no acute changes. 2. C diff. positive Afebrile. WBC 6.2. PO Vanco changed to Dificid 07/16/18. Dificid D 01/29. Bacid 2 tab BID. HOLD Bowel care. HOLD PPI. ID consulted for further recommendations. 3. Hypokalemia. S/P po supplement . Monitor. 4. Hypomagnesemia. S/P mag run. Continue to monitor mag level. 5. Chronic kidney disease3. Nephrology following. SCr 1.02. trend improved. Diuretic on hold. IVF/ Sodium Bicarb d/c 07/23/18 as per Nephrology. 6. Gout. On Uloric. 7. Hypertension. Norvasc 10 mg daily, carvedilol 37.5 mg BID. Hydralazine 25 mg Q6 with hold parameter. Monitor. 8. Coronary artery disease. ASA 9. Carotid stenosis, status post endarterectomy. 10. Congestive heart failure. Diuretic is on hold. Nephrology following. 10. Diabetes. Levemir d/cd 07/19/18, no further hypoglycemia. SSI Monitor 11. Benign prostatic hypertrophy (BPH). Flomax. 12. URI/Respiratory panel Rhinovirus. Afebrile. CXR 07/14/18 NAD. Tylenol/Duoneb/Robitussin. Encourage I/S. Monitor. 13. Anemia. Normocytic. Likely related to chronic disease/CKD. hgb 9.9 this AM. Fe studies, B12, folate 07/14/18. Folate supplement added. PRBC x 2 units 1/30. Monitor. 14. UTI. E Coli pansensitive. UC 07/18/18 pansensitive E coli. UC 07/20 E coli Pt treated with Fosfomycin as per ID. BC x 2 negative x 24 hrs. WBC 6.2. ID following, appreciate further recommendations. 15. GI prophylaxis. HOLD PPI. Continue pepcid. 16. Rt hand edema. Possible IV infiltration. No erythema/warmth. Check U/S RUE. Check XR Rt hand. Monitor. Elevate/warm packs. VS, I&O, 24H, Fishbone Vital Signs/I&O Vital Signs Date Time Temp Pulse Resp B/P (MAP) Pulse Ox O2 Delivery O2 Flow Rate FiO2 07/23/18 08:14 86 170/90 07/23/18 05:50 98.7 18 20 07/21/18 05:40 Room Air I&O- Last 24 Hours up to 6 AM 07/23/18 06:00 Intake Total 1298 ml Output Total 300 ml Balance 998 ml Laboratory Data 24H LABS Laboratory Tests 2 07/22/18 11:55: Bedside Glucose (Misc Panel) 89 07/22/18 17:07: Bedside Glucose (Misc Panel) 100 07/22/18 20:30: Bedside Glucose (Misc Panel) 93 07/23/18 05:58: Nucleated Red Blood Cells % (auto) 0.0, Anion Gap 11, Glomerular Filtration Rate > 60.0, Blood Urea Nitrogen 13, Creatinine 1.02, Sodium Level 141, Potassium Level 3.6, Chloride Level 101, Carbon Dioxide Level 29, Calcium Level 7.5L, Aspartate Amino Transf (AST/SGOT) 15, Alanine Aminotransferase (ALT/SGPT) 12, Alkaline Phosphatase 170H, Total Bilirubin 0.5, Total Protein 5.8L, Albumin 2.1L, Magnesium Level 1.9, Albumin/Globulin Ratio 0.57L CBC/BMP Laboratory Tests 07/23/18 05:58 Red Blood Count 3.51 L, Mean Corpuscular Volume 86.0, Mean Corpuscular Hemoglobin 28.2, Mean Corpuscular Hemoglobin Concent 32.8, Red Cell Distribution Width 17.5 H, Calcium Level 7.5 L, Aspartate Amino Transf (AST/SGOT) 15, Alanine Aminotransferase (ALT/SGPT) 12, Alkaline Phosphatase 170 H, Total Bilirubin 0.5, Total Protein 5.8 L, Albumin 2.1 L Microbiology Microbiology 07/20/18 Blood Culture - Preliminary, Resulted No Growth after 72 hours. All specime... 07/19/18 Blood Culture - Preliminary, Resulted No Growth after 72 hours. All specime... 07/19/18 Stool Occult Blood ([facility]YCOL) - Final, Complete 07/14/18 Respiratory Virus Panel (PCR) (MAYCOL) - Final, Complete Human Rhinovirus/Enterovirus 07/20/18 Urine Culture - Final, Complete Escherichia Coli 07/18/18 Urine Culture - Final, Complete Escherichia Coli Saadia Campbell Jul 23, 2018 11:45
[2018-07-23] MEDS ORDERED: predniSONE 20 MG TAB PO ONE (12:15)
[2018-07-23] MEDS: **hydrALAZINE** 50 MG TAB PO SCH ×2 (13:07→17:47)
[2018-07-23 14:00] VITALS: BP 148/70
--- NOTE | 2018-07-23 14:31 | IPN ---
DATE: 07/23/2018 Mr. Isaac is seen this morning on his bedside. He has a complaint of gout symptoms in his right wrist. His right wrist is swollen and hand was also slightly swollen. He denies any trauma. He has been receiving IV sodium bicarbonate infusion for last couple of days due to metabolic acidosis caused by severe diarrhea. His diarrhea still persists, though slightly improved. The patient denies any dyspnea or chest pain. PHYSICAL EXAMINATION: Temperature 98.7 degrees Fahrenheit, heart rate 86 per minute and respiratory rate 18 per minute. Blood pressure 170/80 mmHg and oxygen saturation 99%. His head is with craniotomy incisions which have almost completely healed. His neck is supple and without JVD or thyroid enlargement. He has no oral thrush or ulcers. Heart: Sounds are regular and lungs clear to auscultation. Abdomen: Soft and nontender. Bowel sounds are present. Extremities: Without any cyanosis or clubbing. Right wrist is slightly swollen and tender in right hand is also slightly swollen. Neurologically he is awake, alert and oriented times three. Today's labs show WBC count 6.2, hemoglobin 9.9 and hematocrit 30.2. Platelets 209. Sodium 141, potassium 3.6, CO2 29, BUN 13 and creatinine 1.02. Calcium level is 7.5 and magnesium 1.9. PROBLEMS: 1. Acute kidney injury superimposed on chronic kidney disease. Kidney function has improved and at present. This is his best kidney function so far. He does not seem to be dehydrated anymore and IV fluid is being stopped. 2. Metabolic acidosis. His acidosis has also resolved and sodium bicarbonate infusion is being stopped. We will continue to monitor for recurrence of acidosis. 3. Hypokalemia. Potassium level has corrected and is likely now to stay corrected as his bicarbonate infusion is being stopped. 4. Gout in the right wrist. The patient seems to have acute gout symptoms so he has been on Uloric 120 mg daily and uric acid level was only 6.2. He will be treated with prednisone 20 mg twice a day for 2 days and will see how he responds. 5. Anemia. Anemia has improved following transfusion and remained stable. 6. C diff colitis. The patient remains on deficient 200 mg twice a day.
--- NOTE | 2018-07-23 15:33 | IPNPDOC ---
PM&R Progress Note DATE OF SERVICE: Jul 23, 2018 [facility] Progress Note Subjective: Patient able to ambulate long distances, but is still having diarrhea and one episode of incontinence today. Right hand IV infiltrated today with swelling. REVIEW OF SYSTEMS: The following is a completed review of systems and has been reviewed. Review of systems otherwise unremarkable. PAIN: Patient self reports bilateral chronic knee pain EYES: Negative for recent vision changes EARS, NOSE, & THROAT: dysphagia (resolved) denies, rhinorrhea CARDIOVASCULAR: +sternal pain, otherwise no palpitations PULMONARY: Negative. Denies shortness of breath, cough resolved. GASTROINTESTINAL:+ diarrhea GENITOURINARY: Negative for dysuria or hematuria, + retention (improving) MUSCULOSKELETAL: bilateral knee OA vs gout NEUROLOGICAL: s/p right frontal lobe resection , seizures HEMATOLOGICAL: Negative SKIN: sacral ulcer PSYCHIATRIC: Unremarkable All other review of systems found to be negative. PHYSICAL EXAMINATION: VITAL SIGNS: Please see below. GENERAL: Pleasant and cooperative. No acute distress. HEENT: PERRL. Extraocular movements intact. Clear conjunctiva, left facial droop (eyebrow sparing) CARDIOVASCULAR: Regular rate and rhythm. No murmurs, rubs, or gallops +TTP sternal palpation LUNGS: Clear to auscultation bilaterally. No wheezes. No rhonchi ABDOMEN: Soft, nontender, nondistended. Positive bowel sounds. Normal active bowel sound NEUROLOGICAL: Alert and oriented times to self and place, not time Cranial nerves II through XII grossly intact. Sensation grossly intact able to follow 2-step commands, however unable to perform Luria, +Apraxia EXTREMITIES:5\5 strength bilateral upper extremities. >3/5 bilateral hip flexors and knee extensors, 5/5 bilateral ankle DF and EHL Bilateral knees warm to touch with effusion right wrist, mildly warm to touch and tender SKIN: sacral ulcer, right frontal craniotonomy incision c/d/i ASSESSMENT:68-year-old M with past medical history of ENEDINA, HTN, CAD who presents status post right frontal mass resection with seizures. PLAN: 1. rehab: PTOT, MULESER advance diet, assess for DME- significant apraxia, able to participate more in therapy, ambulating further with RW, however cognition impaired and will resume MULESER on Thursday and encourage for cognitive tasks in OT for safe discharge to home 2. Neuro:s/p right frontal mass resection, pathology per negative however awaiting offical results results, Dilantin for seizures 125q8h, however levels low at 9.1, increased to 150 qh on 07/12/18 and on 07/19/18 8.6 will increase to 175q8h and recheck 07/26/18 - neuro consult recs appreciated, s/p Decadron taper more quickly and will consider transition to Depakote given his impaired renal function -will need outpatient neuro f/u 2-4 weeks from discharge to review scans from [facility] and consider carotid US, he is s/p left CEA performed in by Dr. Rosa and currently has right carotid artery stenosis -reschedule surgery follow-up until 08/05/18 at 9:[address] Tello, have called twice for path results to be faxed, still waiting 3. Cardio: pmh HTn and HLD, hx of CHF, diuretics on hold per renal recs- medicine consulted, increased beta-ronda and added hydralazine for elevated BP s 4. Resp: ENEDINA non-compliant with CPAP, will provide nocturnal 02, cough improved, recent diagnosis of Rhinovirus, off droplet precautions now 5. Endo: pmh DM continue home meds and adjust prn 6. Rheum: pmh gout, continue Uloric 7. DVT ppx: continue heparin, US of right UE negative for DVT 8. GI ppx: omeprazole, patient found to have +C diff , given persistent diarrhea on Vancomycin, switched to Difficit 200mg BID x 10 days with improvement in leukocytosis, overall very fatigued and diarrhea slightly better, s/p IVF for GI losses -leukocytosis resolved, still with diarrhea, appreciated ID recs, will awit until Thursday to consider fecal transplant 9. : admission UA and Ucx negative monitor PVRs- repeat Ua and Ucx positive for E. Coli, ID consulted, continue Fosfomycin, recs appreciated, renal consulted for retention and metabolic acidosis requiring Bicarb drips recs appreciated 10. Heme: patient with anemia of chronic disease, given 2 units prbc per renal recs on 07/21, concern for possible gout in right hand, short course of steroids per renal- recs appreciated 10. Pain: patient with headaches, Tylenol and Fiorcet prn 11. Dispo: 08/02/18, slowly progressing towards goals Allergies Coded Allergies: No Known Allergies (Verified , 03/30/18) Vital Signs Vital Signs Date Time Temp Pulse Resp B/P (MAP) Pulse Ox O2 Delivery O2 Flow Rate FiO2 07/23/18 14:00 98.3 81 18 148/70 (96) 97 07/21/18 05:40 Room Air Laboratory Data CBC/BMP Laboratory Tests 07/23/18 05:58 Red Blood Count 3.51 L, Mean Corpuscular Volume 86.0, Mean Corpuscular Hemoglobin 28.2, Mean Corpuscular Hemoglobin Concent 32.8, Red Cell Distribution Width 17.5 H, Calcium Level 7.5 L, Aspartate Amino Transf (AST/SGOT) 15, Alanine Aminotransferase (ALT/SGPT) 12, Alkaline Phosphatase 170 H, Total Bilirubin 0.5, Total Protein 5.8 L, Albumin 2.1 L Labs 24H Laboratory Tests 2 07/22/18 17:07: Bedside Glucose (Misc Panel) 100 07/22/18 20:30: Bedside Glucose (Misc Panel) 93 07/23/18 05:58: Nucleated Red Blood Cells % (auto) 0.0, Anion Gap 11, Glomerular Filtration Rate > 60.0, Blood Urea Nitrogen 13, Creatinine 1.02, Sodium Level 141, Potassium Level 3.6, Chloride Level 101, Carbon Dioxide Level 29, Calcium Level 7.5L, Aspartate Amino Transf (AST/SGOT) 15, Alanine Aminotransferase (ALT/SGPT) 12, Alkaline Phosphatase 170H, Total Bilirubin 0.5, Total Protein 5.8L, Albumin 2.1L, Magnesium Level 1.9, Albumin/Globulin Ratio 0.57L 07/23/18 12:54: Bedside Glucose (Misc Panel) 107 Microbiology Microbiology 07/20/18 Blood Culture - Preliminary, Resulted No Growth after 72 hours. All specime... 07/19/18 Blood Culture - Preliminary, Resulted No Growth after 72 hours. All specime... 07/19/18 Stool Occult Blood (MAYCOL) - Final, Complete 07/14/18 Respiratory Virus Panel (PCR) (MAYCOL) - Final, Complete Human Rhinovirus/Enterovirus 07/20/18 Urine Culture - Final, Complete Escherichia Coli 07/18/18 Urine Culture - Final, Complete Escherichia Coli Current Medications Current Medications Current Medications Acetaminophen (Tylenol Tab) 650 mg DAILY PRN PO fever; Start 07/09/18 at 21:00 Acetaminophen (Tylenol Tab) 1,000 mg TID PO Last administered on 07/23/18 08:13; Start 07/09/18 at 21:00 Acetaminophen/ Butalbital/ Caffeine (Fioricet) 1 ea Q6HP PRN PO HEADACHE Last administered on 07/12/18 12:58; Start 07/12/18 at 11:00 Albuterol/ Ipratropium (Duoneb (Ipr 0.5mg/Alb 2.5mg)) 3 ml BID NEB ; Start 07/14/18 at 21:00; Status UNV Albuterol/ Ipratropium (Duoneb (Ipr 0.5mg/Alb 2.5mg)) 3 ml RBID NEB Last administered on 07/23/18 07:33; Start 07/10/18 at 08:00 Amlodipine Besylate (Norvasc) 10 mg DAILY PO Last administered on 07/23/18 08:14; Start 07/10/18 at 09:00 Aspirin (Ecotrin) 81 mg DAILY PO Last administered on 07/23/18 08:14; Start 07/10/18 at 09:00 Bisacodyl (Dulcolax Suppository) 10 mg DAILYPRN PRN UT CONSTIPATION; Start 07/09/18 at 21:15; Stop 07/20/18 at 14:26; Status DC Calcitriol (Rocaltrol) 0.25 mcg DAILY PO Last administered on 07/23/18 08:13; Start 07/10/18 at 09:00 Calcium Carbonate (Tums) 500 mg DAILYPRN PRN PO INDIGESTION Last administered on 07/20/18 01:22; Start 07/19/18 at 20:00 Carvedilol (COReg) 12.5 mg BID PO Last administered on 07/14/18 09:03; Start 07/09/18 at 21:00; Stop 07/14/18 at 11:08; Status DC Carvedilol (COReg) 25 mg BID PO Last administered on 07/19/18 08:40; Start at 21:00; Stop 07/19/18 at 10:30; Status DC Carvedilol (COReg) 37.5 mg BID PO Last administered on 07/23/18 08:13; Start 07/19/18 at 21:00 Cefepime HCl 1 gm/ Dextrose 50 ml @ 100 mls/hr Q24H IV Last administered on 07/20/18 15:15; Start 07/20/18 at 13:00; Stop 07/20/18 at 19:38; Status DC Cod Liver Oil/ Zinc Oxide (Desitin) apply to sacrum BID TOP Last administered on 07/23/18 08:15; Start 07/10/18 at 09:00 Dexamethasone (Decadron) 2 mg DAILY PO Last administered on 07/20/18at 10:34; Start 07/16/18 at 09:00; Stop 07/21/18 at 08:59; Status DC Dexamethasone (Decadron) 2 mg DAILY PO ; Start 07/18/18 at 09:00; Stop 07/18/18 at 09:00; Status DC Dexamethasone (Decadron) 2 mg Q12H PO Last administered on 07/15/18at 21:09; Start 07/13/18 at 21:00; Stop 07/15/18 at 21:55; Status DC Dexamethasone (Decadron) 4 mg Q12H PO Last administered on 07/13/18at 08:35; Start 07/09/18 at 21:00; Stop 07/13/18 at 20:59; Status DC Dextrose (Dextrose 50%) 25 ml ASDIRECTED PRN IV SEE LABEL COMMENTS; Start 07/09/18 at 21:00 Famotidine (Pepcid) 10 mg BID PO Last administered on 07/23/18 08:14; Start 07/12/18 at 15:00 Febuxostat (Uloric) 120 mg DAILY PO Last administered on 07/23/18 08:14; Start 07/10/18 at 09:00 Fidaxomicin (Dificid) 200 mg BID PO Last administered on 07/23/18 08:12; Start 07/16/18 at 11:45; Stop 07/25/18 at 21:01 Folic Acid (Folic Acid) 1 mg DAILY PO Last administered on 07/23/18 08:14; Start 07/16/18 at 09:00 Fosfomycin Tromethamine (Monurol) 3 gm Q2D PO Last administered on 07/22/18at 08:54; Start 07/22/18 at 09:00; Stop 07/24/18 at 12:00 Gemfibrozil (Lopid) 600 mg BID PO Last administered on 07/23/18at 08:14; Start 07/09/18 at 21:00 Glucagon (Glucagon) 1 mg ASDIRECTED PRN SC SEE LABEL COMMENTS; Start 07/09/18 at 21:00 Glucose (Glucose) 16 GM ASDIRECTED PRN PO SEE LABEL COMMENTS; Start 07/09/18 at 21:00 Guaifenesin (Robitussin Tab) 400 mg TID PO Last administered on 07/23/18at 08:12; Start 07/10/18 at 09:00 Guaifenesin (Robitussin Tab) 400 mg TID PO ; Start 07/14/18 at 21:00; Stop 07/14/18 at 21:00; Status DC Heparin Sodium (Porcine) (Heparin) 5,000 units Q8H SQ Last administered on 07/23/18at 13:07; Start 07/09/18 at 22:00 Home Med (Med Rec Complete!) ASDIRECTED XX ; Start 07/09/18 at 23:00; Stop 07/09/18 at 23:00; Status DC Hydralazine HCl (Apresoline) 25 mg Q6H PO Last administered on 07/23/18at 05:52; Start 07/20/18 at 12:00; Stop 07/23/18 at 11:52; Status DC Hydralazine HCl (Apresoline) 50 mg Q6H PO Last administered on 07/23/18at 13:07; Start 07/23/18 at 12:00 Insulin Detemir (Levemir Insulin) 10 units QHS SC Last administered on 9at 21:49; Start 07/15/18 at 21:00; Stop 07/19/18 at 13:01; Status DC Insulin Detemir (Levemir Insulin) 20 units QHS SC Last administered on 07/14/18at 22:04; Start 07/09/18 at 21:00; Stop 07/15/18 at 14:20; Status DC Insulin Human Lispro (HumaLOG INSULIN) SEE PROTOCOL TABLE AC SC Last administer ed on 07/22/18at 08:55; Start 07/10/18 at 07:30 Lactobacillus Acidophilus (Bacid) 1 ea BIDWM PO Last administered on 07/14/18at 08:59; Start 07/11/18 at 08:00; Stop 07/14/18 at 13:09; Status DC Lactobacillus Acidophilus (Bacid) 2 ea BIDWM PO Last administered on 07/23/18at 08:12; Start 07/14/18 at 18:00 Lidocaine (Lidoderm Patch) 1 patch DAILY TD Last administered on 07/23/18at 08:15; Start 07/10/18 at 09:00 Lorazepam (Ativan) 2 mg Q6H PRN IV SEIZURES; Start 07/10/18 at 02:30; Stop 07/22/18 at 12:01; Status DC Magnesium Hydroxide (Milk Of Magnesia) 30 ml DAILYPRN PRN PO CONSTIPATION; Start 07/09/18 at 21:15; Stop 07/20/18 at 14:26; Status DC Metronidazole (Flagyl) 500 mg Q8H PO Last administered on 07/11/18at 05:01; Start 07/11/18 at 04:00; Stop 07/11/18 at 07:12; Status DC Miscellaneous (Unresolved Clarification Entry) SEE LABEL COMMENTS DAILY XX ; Start 07/21/18 at 09:00; Stop 07/22/18 at 07:12; Status DC Miscellaneous (Unresolved Clarification Entry) SEE LABEL COMMENTS DAILY XX ; Start 07/22/18 at 09:00; Stop 07/23/18 at 04:46; Status DC Non-Formulary Medication ( See Comment Field Below ) REMOVE LIDODERM PATCH DAILY@21 XX Last administered on 07/22/18at 21:00; Start 07/09/18 at 21:00 Omeprazole (PriLOSEC) 40 mg QHS PO Last administered on 07/11/18at 22:26; Start 07/09/18 at 21:00; Stop 07/12/18 at 14:39; Status DC Ondansetron HCl (Zofran) 4 mg Q6HP PRN PO NAUSEA; Start 07/09/18 at 21:15 Phenytoin (Dilantin Chewable) 125 mg Q8H PO Last administered on 07/12/18at 05:49; Start 07/09/18 at 22:00; Stop 07/12/18 at 10:30; Status DC Phenytoin (Dilantin Chewable) 150 mg Q8H PO Last administered on 07/19/18 13:01; Start 07/12/18 at 14:00; Stop 07/19/18 at 15:37; Status DC Phenytoin (Dilantin Chewable) 175 mg Q8H PO Last administered on 07/23/18 13:07; Start 07/19/18 at 22:00 Potassium Chloride (Micro-K Extencaps) 20 meq DAILY PO Last administered on 07/17/18at 10:19; Start 07/12/18 at 09:00; Stop 07/17/18 at 11:48; Status DC Prednisone (Deltasone) 20 mg BID PO ; Start 07/23/18 at 21:00; Stop 07/25/18 at 10:00 Senna/Docusate Sodium (Senokot S) 1 tab BID PO Last administered on 07/11/18at 22:23; Start 07/10/18 at 09:00; Stop 07/12/18 at 14:39; Status DC Sodium Bicarbonate 150 meq/Sterile Water 1,150 ml @ 60 mls/hr [id number] IV Last administered on 07/22/18 17:42; Start 07/20/18 at 09:00; Stop 07/23/18 at 04:19; Status DC Sodium Bicarbonate 150 meq/Sterile Water 1,150 ml @ 60 mls/hr [id number] IV ; Start 07/23/18 at 08:00; Stop 07/23/18 at 08:00; Status DC Tamsulosin HCl (Flomax) 0.4 mg QHS PO Last administered on 07/22/18at 21:28; Start 07/09/18 at 21:00 Torsemide (Demadex) 50 mg BID@09,17 PO ; Start 07/10/18 at 09:00; Stop 07/10/18 at 09:24; Status DC Trazodone HCl (Desyrel) 25 mg QHSP PRN PO INSOMNIA Last administered on 07/22/18at 22:54; Start 07/09/18 at 21:00 Vancomycin HCl (First-Vancomycin 50(Firvanq)- 250mg/5ml) 125 mg Q6H PO Last a dministered on 07/16/18 05:44; Start 07/11/18 at 06:00; Stop 07/16/18 at 11:37; Status DC Zinc Oxide (Boudreauxs Butt Paste) sacrum BID TOP ; Start 07/10/18 at 09:00; Stop 07/10/18 at 13:02; Status DC ESTRELLITA STANTON MD Jul 23, 2018 15:29
--- NOTE | 2018-07-23 18:38 | IPN ---
DATE: 07/23/2018 SUBJECTIVE: The patient is seen on his way back from radiology. He states that he has developed more pain in his hand, especially his right hand as well as his feet. He does have a history of gout, which he states was diagnosed 40 years ago. He is also still having diarrhea, and states that he will probably have diarrhea at least five times per day, and is able to make it to the toilet about 1 out of all of those, the rest he remains incontinent for. He denies any fevers, chills, nausea or vomiting. He states that he is not having any urinary symptoms at this time, denies any hematuria, dysuria, urgency, hesitancy or dribbling. OBJECTIVE: Vitals: Temperature 98.7, pulse 86 and regular, respiratory rate 18, blood pressure 170/80, pulse ox is 97% on room air. General: Pleasant older male in no acute distress. He is very conversant. HEENT: Atraumatic, normocephalic. There is a long curve scar over the patient's right frontal temporal area which shows granulomatous tissue in multiple stages of healing. There is no erythema, exudate or drainage. There are no lesions of the mouth. The patient has own teeth and dentition is fair. Lungs: Clear to auscultation bilaterally. No wheezes, rhonchi or rales. Heart: Regular rate and rhythm. No murmurs, gallops or rubs. Abdomen: Hyperactive bowel sounds. No pain to palpation in all four quadrants. Back: No CVA tenderness bilaterally new line Extremities: The patient does have some swelling especially the right wrist. He also has swelling in his lower extremities bilaterally around the ankles. Palpation of all three of these joints does induce pain. He is still able to flex and extend his wrist, though range of motion does seem to be somewhat limited. He is also able to flex and extend his ankles. Skin: No rashes or lesions of the extremities are noted. LABORATORY DATA: CBC: WBC 6.2, hemoglobin 9.9, hematocrit 30.2, platelets 209. Chemistry: Sodium 141, potassium 3.6, chloride 101, carbon dioxide 29, BUN 13, creatinine 1.020, fasting glucose 101, calcium 7.5, magnesium 1.9, total bili 0.3, AST 15, ALT 12, alkaline phosphatase 170, CRP from yesterday was 12.3, total protein from today was 5.8, albumin from today was 2.1. Micro: A urine culture from 07/20/2018 was positive for E-coli with sensitivities to fosfomycin IMAGING STUDIES: Vascular ultrasound on 07/23/2018 showed no evidence for DVT in the right upper extremity. Hand x-ray from 07/23/2018 showed generalized degenerative changes and evidence for peripheral vascular disease. . IMPRESSION: This is a 68-year-old male who was recently at [facility] for a craniotomy secondary to a right frontotemporal brain mass. He was transferred to [facility] with diarrhea and subsequently diagnosed with C. Diff colitis as well as pyuria with E-coli. Also patient may have gout attack and may benefit from prednisone [place] PLAN: 1. C. Diff colitis. We agree with the use Dificid and he is on day #8. Current recommendations show Dificid 200 mg twice a day for 10 days is the appropriate treatment. Diarrhea is still persisting however, so we think that stool transplant should be considered. This was discussed with Dr. Hector Haines 2. Pyuria with E-coli. Patient received his second dose of fosfomycin yesterday, his last dose is supposed to be tomorrow, for a total of three doses. If the patient's fever returns maybe consider a CT of the abdomen and pelvis, especially as there is concern for urinary retention. My faculty preceptor for this patient encounter was physically present during the encounter and was fully available. All aspects of the patient interview, examination, medical decision making process, and medical care plan development were reviewed and approved by the faculty preceptor. The faculty preceptor is aware and concurs with the plan as stated in the body of this note and will attest to such by his/her cosignature. ABRAND
[2018-07-23 20:00] VITALS: BP 160/82
[2018-07-23] MEDS: TAMSULOSIN 0.4 MG CAP PO SCH (20:52)
[2018-07-23] MEDS: traZODone 25MG PER 1/2 TABLET PO PRN (20:53)
[2018-07-23] MEDS: predniSONE 20 MG TAB PO SCH (20:53)
[2018-07-23] MEDS: **NOTE PATIENT COMMENT** MISC XX SCH (20:55)
[2018-07-24] MEDS: **hydrALAZINE** 50 MG TAB PO SCH ×5 (00:32→23:46)
[2018-07-24 05:00] VITALS: BP 158/88
[2018-07-24] MEDS: HEPARIN SOD (PORCINE) 5000 UNITS/ML VIAL SQ SCH ×3 (05:00→20:56)
[2018-07-24] MEDS: PHENYTOIN 50 MG CHEW TABLET PO SCH ×3 (05:01→20:59)
[2018-07-24 07:06] LABS: HEMATOCRIT 27.4 % (42.0-52.0); MEAN CORPUSCULAR HEMOGLOBIN 28.4 pg (27.0-33.0); MEAN CORPUSCULAR HGB CONC 32.8 g/dl (32.0-36.5); MEAN CORPUSCULAR VOLUME 86.4 fl (80.0-96.0); PLATELET COUNT, AUTOMATED 205 10^3/uL (150-450); RED BLOOD COUNT 3.17 10^6/uL (4.30-6.10); WHITE BLOOD COUNT 5.4 10^3/uL (4.0-10.0)
[2018-07-24] MEDS: HumaLOG INSULIN (NovoLOG) PER UNIT SC SCH ×3 (07:30→16:36)
[2018-07-24 07:41] LABS: ALBUMIN 1.9 GM/DL (3.2-5.2); ALT/SGPT 11 U/L (12-78); BILIRUBIN,TOTAL 0.4 MG/DL (0.2-1.0); BLOOD UREA NITROGEN 15 MG/DL (7-18); CALCIUM LEVEL 7.6 MG/DL (8.8-10.2); CARBON DIOXIDE LEVEL 29 MEQ/L (21-32); CHLORIDE LEVEL 101 MEQ/L (98-107); CREATININE FOR GFR 1.11 MG/DL (0.70-1.30); GLOMERULAR FILTRATION RATE > 60.0 (>49); GLUCOSE, FASTING 106 MG/DL (70-100); MAGNESIUM LEVEL 1.8 MG/DL (1.8-2.4); POTASSIUM SERUM 3.3 MEQ/L (3.5-5.1); SODIUM LEVEL 140 MEQ/L (136-145); TOTAL PROTEIN 5.3 GM/DL (6.4-8.2)
[2018-07-24 08:30] VITALS: BP 142/70
[2018-07-24] MEDS: FOSFOMYCIN TROMETHAMINE 3 GM POWDER PACKET (MONUROL) PO SCH (08:52)
[2018-07-24] MEDS: LIDOCAINE 5% (LIDODERM) PATCH TD SCH (08:52)
[2018-07-24] MEDS: ACETAMINOPHEN 500 MG TAB PO SCH ×3 (08:53→20:58)
[2018-07-24] MEDS: GEMFIBROZIL 600 MG TAB PO SCH ×2 (08:53→20:59)
[2018-07-24] MEDS: CALCITRIOL 0.25 MCG CAP (S0169) PO SCH (08:53)
[2018-07-24] MEDS: FAMOTIDINE 20 MG TAB PO SCH ×2 (08:53→20:58)
[2018-07-24] MEDS: ASPIRIN 81 MG ENTERIC TAB PO SCH (08:54)
[2018-07-24] MEDS: guaiFENesin 200 MG TAB PO SCH ×3 (08:54→20:57)
[2018-07-24] MEDS: LACTOBACILLUS ACIDOPHILUS CAP (BACID) PO SCH ×2 (08:54→17:45)
[2018-07-24] MEDS: FIDAXOMICIN 200 MG TAB (DIFICID) PO SCH ×2 (08:54→20:57)
[2018-07-24] MEDS: FEBUXOSTAT 40 MG TABLET (ULORIC) PO SCH (08:54)
[2018-07-24] MEDS: predniSONE 20 MG TAB PO SCH ×2 (08:55→20:57)
[2018-07-24] MEDS: amLODIPine 10 MG TAB PO SCH (08:55)
[2018-07-24] MEDS: FOLIC ACID 1 MG TAB PO SCH (08:55)
[2018-07-24] MEDS: CARVedilol 12.5 MG TAB PO SCH ×2 (08:56→20:59)
[2018-07-24] MEDS: DIAPER RELIEF PASTE (DESITIN) 60GM TOP SCH ×2 (09:00→21:00)
[2018-07-24] MEDS ORDERED: POTASSIUM CHLORIDE 10 MEQ SR TABLET PO ONE (09:00)
[2018-07-24] MEDS: IPRATROPIUM 0.5MG/ALBUTEROL 2.5MG INH SOL UD 3ML (DUONEB)(J7620) NEB SCH ×2 (09:08→21:30)
[2018-07-24 14:00] VITALS: BP 144/62
[2018-07-24 20:00] VITALS: BP 142/80
[2018-07-24] MEDS: TAMSULOSIN 0.4 MG CAP PO SCH (20:59)
[2018-07-24] MEDS: **NOTE PATIENT COMMENT** MISC XX SCH (21:00)
--- NOTE | 2018-07-24 22:10 | IPN ---
DATE: 07/24/2018 SUBJECTIVE: Patient is seen and examined in the room today. Patient continues to have frequent loose stools. Patient states he has been having more formed bowel movements in the last 24 hours. Denies any fevers or chills. OBJECTIVE: VITAL SIGNS: Temperature 98.2, pulse 81, respirations 18, blood pressure is 158/88, pulse oximetry 96% in room air. GENERAL: No sign of acute distress. Patient is alert and awake, comfortable. HEENT: Normocephalic, atraumatic. Extraocular motor grossly intact. CARDIOVASCULAR: Positive S1, S2, regular rate. LUNGS: Clear to auscultation bilaterally. ABDOMEN: Soft, nontender, nondistended. Bowel sounds present. EXTREMITIES: Mild edema appreciated. LABORATORY DATA: WBC 5.4, hemoglobin 9, hematocrit 97.4, platelet count is 205. Sodium is 140, potassium 3.3, chloride 101, carbon dioxide 29, BUN 15, creatinine 1.11, GFR greater than 60, fasting glucose 106, calcium 7.6, magnesium 1.8. Total bilirubin 0.4, AST 13, ALT 11, alkaline phosphatase 148, total protein 5.3, albumin 1.9. ASSESSMENT AND PLAN: 1. Frontocranial mass, status post resection. Surgery was performed in [facility] in [place] on 07/05/2018. Patient currently continues rehabilitation in acute rehabilitation unit. Refer physical therapy (PT), occupational therapy (OT), pain control per acute rehabilitation unit (ARU) instructions. Continue Decadron taper per neurosurgery. Continue Dilantin for seizure prophylaxis per neurosurgery. On seizure precautions. 2. Clostridium (C) difficile colitis, status post oral vancomycin. Currently patient is on Dificid and Bacid twice a day. Infectious disease consulted. 3. Chronic kidney disease, stage III. Nephrology consulted. Diuretic on hold. Currently renal function within normal range. 4. Electrolyte abnormalities. Patient had hypokalemia and hypomagnesemia. Will supplement accordingly and as needed. 5. Gout, on Uloric. 6. Hypertension. Patient is currently on amlodipine, carvedilol, hydralazine. 7. Coronary artery disease, on aspirin. 8. History of carotid stenosis, status post endarterectomy. 9. Congestive heart failure. Currently diuretics on hold. 10. Diabetes, on Levemir, on sliding scale. Continue consistent-carbohydrate diet. 11. BPH, on Flomax. 12. History of rhinovirus infection. Continue to monitor. 13. Normocytic anemia. Continue to monitor hemoglobin and hematocrit. Patient had two packed red blood cells transfusion on 07/21/2018. 14. Escherichia (E) coli urinary tract infection (UTI), status post fosfomycin treatment. 15. Deep vein thrombosis (DVT) prophylaxis, on heparin. MTDD
[2018-07-24 23:46] VITALS: BP 158/75
[2018-07-25 04:49] VITALS: BP 148/72
[2018-07-25] MEDS: HEPARIN SOD (PORCINE) 5000 UNITS/ML VIAL SQ SCH ×3 (04:50→21:52)
[2018-07-25] MEDS: **hydrALAZINE** 50 MG TAB PO SCH ×4 (04:51→23:20)
[2018-07-25] MEDS: PHENYTOIN 50 MG CHEW TABLET PO SCH ×3 (04:51→21:54)
[2018-07-25] MEDS: IPRATROPIUM 0.5MG/ALBUTEROL 2.5MG INH SOL UD 3ML (DUONEB)(J7620) NEB SCH ×2 (07:30→20:00)
[2018-07-25] MEDS: HumaLOG INSULIN (NovoLOG) PER UNIT SC SCH ×3 (07:30→17:30)
[2018-07-25 08:07] LABS: HEMATOCRIT 30.3 % (42.0-52.0); HEMOGLOBIN 9.7 g/dl (13.5-17.5); MEAN CORPUSCULAR VOLUME 87.6 fl (80.0-96.0); PLATELET COUNT, AUTOMATED 270 10^3/uL (150-450); RED BLOOD COUNT 3.46 10^6/uL (4.30-6.10); WHITE BLOOD COUNT 5.6 10^3/uL (4.0-10.0)
[2018-07-25 08:32] LABS: ALBUMIN 2.1 GM/DL (3.2-5.2); ALT/SGPT 11 U/L (12-78); BILIRUBIN,TOTAL 0.3 MG/DL (0.2-1.0); BLOOD UREA NITROGEN 15 MG/DL (7-18); CALCIUM LEVEL 7.9 MG/DL (8.8-10.2); CARBON DIOXIDE LEVEL 30 MEQ/L (21-32); CHLORIDE LEVEL 101 MEQ/L (98-107); CREATININE FOR GFR 1.18 MG/DL (0.70-1.30); GLOMERULAR FILTRATION RATE > 60.0 (>49); GLUCOSE, FASTING 108 MG/DL (70-100); MAGNESIUM LEVEL 1.9 MG/DL (1.8-2.4); POTASSIUM SERUM 3.3 MEQ/L (3.5-5.1); SODIUM LEVEL 139 MEQ/L (136-145); TOTAL PROTEIN 6.5 GM/DL (6.4-8.2)
[2018-07-25] MEDS: LACTOBACILLUS ACIDOPHILUS CAP (BACID) PO SCH ×2 (08:47→18:23)
[2018-07-25] MEDS: GEMFIBROZIL 600 MG TAB PO SCH ×2 (08:47→21:54)
[2018-07-25] MEDS: ACETAMINOPHEN 500 MG TAB PO SCH ×3 (08:47→21:53)
[2018-07-25] MEDS: predniSONE 20 MG TAB PO SCH (08:47)
[2018-07-25] MEDS: CALCITRIOL 0.25 MCG CAP (S0169) PO SCH (08:47)
[2018-07-25] MEDS: FIDAXOMICIN 200 MG TAB (DIFICID) PO SCH ×2 (08:47→21:55)
[2018-07-25] MEDS: FOLIC ACID 1 MG TAB PO SCH (08:47)
[2018-07-25] MEDS: guaiFENesin 200 MG TAB PO SCH ×3 (08:47→21:55)
[2018-07-25] MEDS: ASPIRIN 81 MG ENTERIC TAB PO SCH (08:48)
[2018-07-25] MEDS: CARVedilol 12.5 MG TAB PO SCH ×2 (08:48→21:55)
[2018-07-25] MEDS: FEBUXOSTAT 40 MG TABLET (ULORIC) PO SCH (08:48)
[2018-07-25] MEDS: FAMOTIDINE 20 MG TAB PO SCH ×2 (08:49→21:54)
[2018-07-25] MEDS: amLODIPine 10 MG TAB PO SCH (08:49)
[2018-07-25] MEDS: LIDOCAINE 5% (LIDODERM) PATCH TD SCH (08:51)
[2018-07-25] MEDS: DIAPER RELIEF PASTE (DESITIN) 60GM TOP SCH ×2 (09:19→21:56)
[2018-07-25] MEDS ORDERED: POTASSIUM CHLORIDE 10 MEQ SR TABLET PO ONE (11:00)
--- NOTE | 2018-07-25 12:03 | IPN ---
DATE: 07/24/2018 SUBJECTIVE: Patient is seen and examined at the bedside. He was getting ready to start his physical therapy. His is afebrile. Hemodynamically stable. He is still having some diarrhea secondary to C difficile colitis. However, the frequency of diarrhea is improving. Renal function is stable with a creatinine of 1.1 on today's labs. OBJECTIVE: VITAL SIGNS: Temperature 98.2 degrees Fahrenheit, blood pressure 142/70, pulse 85, respiratory rate of 18, saturating 95% in room air. Intake and output: Urine output recorded as 850 mL since overnight. He has had three bowel movements since overnight. Weight on the bed scale is 98.3 kg. PHYSICAL EXAMINATION: GENERAL: Patient is awake, alert, oriented times three. No apparent distress. HEAD/NECK: Extraocular muscles intact. Pupils equal, round, and reactive to light. His craniotomy incision has healed now. Neck is supple. There is no jugular venous distention (JVD). CARDIOVASCULAR: S1, S2. Regular rate. No murmur, rub or gallop. No edema of the bilateral lower extremities. RESPIRATORY: Chest clear to auscultation bilaterally. Bilaterally good air entry. No rales or rhonchi. ABDOMEN: Soft, positive bowel sounds. Nontender. No organomegaly. MUSCULOSKELETAL: No clubbing or cyanosis. Pulses are 2+. MANAGER ADMINISTRATION: Patient is moving all four extremities now. He is oriented times three. LAB REVIEW: CBC showed a WBC 5.4, hemoglobin 9, platelets 205. BMP showed sodium 140, potassium 3.3, chloride 101, bicarbonate 20, BUN 15, creatinine 1.1. It was 1.2 yesterday. Calcium 7.6, magnesium 1.8, albumin 1.9. Microbiology: Urine culture done on 07/20/2018 is growing E Coli. CURRENT INPATIENT MEDICATIONS: Patient's medications are all reviewed by me. He got fosfomycin for 2 days. No other changes in the medications today as compared with yesterday. ASSESSMENT/PLAN: 1. Acute kidney injury superimposed on chronic kidney disease: Patient's renal function has improved back to baseline. Creatinine has been fluctuating around 1.1. No need for IV fluids at this time. 2. Hypokalemia: Patient was given a dose of potassium chloride 40 mEq by mouth times one dose this morning. 3. Gout in the right wrist: Continue current dose of Uloric 120 mg daily. The patient is on prednisone 20 mg by mouth twice a day. Last dose will be tomorrow. 4. Anemia secondary to chronic kidney disease: Patient's hemoglobin is 9, which is optimal at this point. He is status post 2 units PRBC packed red blood cell transfusion during this admission. 5. C Difficile colitis: Patient is currently on Dificid 200 mg by mouth twice a day. The rest of the management is per infectious disease (ID) recommendations. 6. Urinary tract infection: Patient's repeat urine culture was again growing E Coli. He was given fosfomycin for 2 days. Aggressive antibiotic therapy is being avoided because of C difficile colitis.
[2018-07-25 15:03] VITALS: BP 158/72
--- NOTE | 2018-07-25 18:57 | IPNPDOC ---
Text Note Date of Service The patient was seen on 07/25/18. NOTE SUBJECTIVE: Patient is seen and examined in the room today. Patient states his bowel movement frequency has decreased today compared to yesterday. Denies fever or chill. Patient reports poor oral intake. OBJECTIVE: VITAL SIGNS: Listed below. GENERAL: No sign of acute distress. Patient is alert and awake, comfortable. HEENT: Normocephalic, atraumatic. Extraocular motor grossly intact. CARDIOVASCULAR: Positive S1, S2, regular rate. LUNGS: Clear to auscultation bilaterally. ABDOMEN: Soft, nontender, nondistended. Bowel sounds present. EXTREMITIES: Mild edema appreciated. LABORATORY DATA: Listed below. ASSESSMENT AND PLAN: #. Frontocranial mass - status post resection in [facility] in [place] on 07/05/2018. - Continues rehabilitation in acute rehabilitation unit. Refer physical therapy (PT), occupational therapy (OT), pain control per acute rehabilitation unit (ARU) instructions. - Prednisone tapered per neurosurgery. Continue Dilantin for seizure prophylaxis per neurosurgery. On seizure precautions. #. Clostridium (C) difficile colitis - status post oral vancomycin. Currently patient is on Dificid and Bacid twice a day. Infectious disease consulted. # Severe metabolic acidosis. - Secondary to diarrhea. S/P sodium bicarb infusion. #. Acute renal failure on Chronic kidney disease, stage III. Nephrology consulted. Diuretic on hold. Currently renal function within normal range. #. Electrolyte abnormalities. Patient had hypokalemia and hypomagnesemia. Will supplement accordingly and as needed. #. Gout, on Uloric. #. Hypertension. Patient is currently on amlodipine, carvedilol, hydralazine. #. Coronary artery disease, on aspirin. #. History of carotid stenosis, status post endarterectomy. #. Congestive heart failure. Currently diuretics on hold. #. Diabetes, on Levemir, on sliding scale. Continue consistent-carbohydrate t. #. BPH, on Flomax. #. History of rhinovirus infection. Continue to monitor. #. Normocytic anemia. - Continue to monitor hemoglobin and hematocrit. Patient had two packed red blood cells transfusion on 07/21/2018. #. Escherichia (E) coli urinary tract infection (UTI), status post fosfomycin treatment. #. Deep vein thrombosis (DVT) prophylaxis, on heparin. VS,Fishbone, I+O VS, Fishbone, I+O Laboratory Tests 07/25/18 06:27 Red Blood Count 3.46 L, Mean Corpuscular Volume 87.6, Mean Corpuscular Hemoglobin 28.0, Mean Corpuscular Hemoglobin Concent 32.0, Red Cell Distribution Width 17.6 H, Calcium Level 7.9 L, Aspartate Amino Transf (AST/SGOT) 13, Alanine Aminotransferase (ALT/SGPT) 11 L, Alkaline Phosphatase 148 H, Total Bilirubin 0.3, Total Protein 6.5 #, Albumin 2.1 L Vital Signs Date Time Temp Pulse Resp B/P (MAP) Pulse Ox O2 Delivery O2 Flow Rate FiO2 07/25/18 18:23 158/72 07/25/18 15:03 96.2 72 18 98 07/21/18 05:40 Room Air I&O- Last 24 Hours up to 6 AM 07/25/18 06:00 Intake Total 1440 ml Output Total 1500 ml Balance -60 ml CLEMENT HAAS DO Jul 25, 2018 18:57
[2018-07-25 20:00] VITALS: BP 140/66
[2018-07-25] MEDS: **NOTE PATIENT COMMENT** MISC XX SCH (21:00)
[2018-07-25] MEDS: TAMSULOSIN 0.4 MG CAP PO SCH (21:55)
[2018-07-26] MEDS: **hydrALAZINE** 50 MG TAB PO SCH ×4 (05:30→23:13)
[2018-07-26] MEDS: PHENYTOIN 50 MG CHEW TABLET PO SCH ×3 (05:31→21:25)
[2018-07-26] MEDS: HEPARIN SOD (PORCINE) 5000 UNITS/ML VIAL SQ SCH ×3 (05:31→21:24)
[2018-07-26 06:00] VITALS: BP 164/82
[2018-07-26 07:31] LABS: HEMATOCRIT 30.4 % (42.0-52.0); HEMOGLOBIN 9.9 g/dl (13.5-17.5); MEAN CORPUSCULAR HEMOGLOBIN 28.2 pg (27.0-33.0); MEAN CORPUSCULAR HGB CONC 32.6 g/dl (32.0-36.5); MEAN CORPUSCULAR VOLUME 86.6 fl (80.0-96.0); PLATELET COUNT, AUTOMATED 300 10^3/uL (150-450); RED BLOOD COUNT 3.51 10^6/uL (4.30-6.10); WHITE BLOOD COUNT 6.8 10^3/uL (4.0-10.0)
[2018-07-26 07:57] LABS: ALBUMIN 2.3 GM/DL (3.2-5.2); ALT/SGPT 13 U/L (12-78); BILIRUBIN,TOTAL 0.3 MG/DL (0.2-1.0); BLOOD UREA NITROGEN 16 MG/DL (7-18); CALCIUM LEVEL 7.9 MG/DL (8.8-10.2); CARBON DIOXIDE LEVEL 29 MEQ/L (21-32); CHLORIDE LEVEL 103 MEQ/L (98-107); CREATININE FOR GFR 1.22 MG/DL (0.70-1.30); GLOMERULAR FILTRATION RATE > 60.0 (>49); GLUCOSE, FASTING 142 MG/DL (70-100); MAGNESIUM LEVEL 1.8 MG/DL (1.8-2.4); PHENYTOIN (DILANTIN) 10.8 UG/ML (10.0-20.0); POTASSIUM SERUM 3.7 MEQ/L (3.5-5.1); SODIUM LEVEL 140 MEQ/L (136-145); TOTAL PROTEIN 6.1 GM/DL (6.4-8.2)
[2018-07-26] MEDS: IPRATROPIUM 0.5MG/ALBUTEROL 2.5MG INH SOL UD 3ML (DUONEB)(J7620) NEB SCH ×2 (07:59→19:54)
[2018-07-26] MEDS: ONDANSETRON 4 MG TAB (S0181) PO PRN ×2 (08:17→21:26)
[2018-07-26] MEDS: FAMOTIDINE 20 MG TAB PO SCH ×2 (09:24→21:26)
[2018-07-26] MEDS: LACTOBACILLUS ACIDOPHILUS CAP (BACID) PO SCH ×2 (09:25→17:32)
[2018-07-26] MEDS: LIDOCAINE 5% (LIDODERM) PATCH TD SCH (09:25)
[2018-07-26] MEDS: HumaLOG INSULIN (NovoLOG) PER UNIT SC SCH ×3 (09:25→17:32)
[2018-07-26] MEDS: FOLIC ACID 1 MG TAB PO SCH (09:26)
[2018-07-26] MEDS: guaiFENesin 200 MG TAB PO SCH ×3 (09:26→21:26)
[2018-07-26] MEDS: ACETAMINOPHEN 500 MG TAB PO SCH ×3 (09:26→21:25)
[2018-07-26] MEDS: GEMFIBROZIL 600 MG TAB PO SCH ×2 (09:26→21:26)
[2018-07-26] MEDS: amLODIPine 10 MG TAB PO SCH (09:26)
[2018-07-26] MEDS: ASPIRIN 81 MG ENTERIC TAB PO SCH (09:26)
[2018-07-26] MEDS: CALCITRIOL 0.25 MCG CAP (S0169) PO SCH (09:26)
[2018-07-26] MEDS: FEBUXOSTAT 40 MG TABLET (ULORIC) PO SCH (09:26)
[2018-07-26] MEDS: CARVedilol 12.5 MG TAB PO SCH ×2 (09:27→21:26)
[2018-07-26] MEDS: DIAPER RELIEF PASTE (DESITIN) 60GM TOP SCH ×2 (09:27→21:27)
--- NOTE | 2018-07-26 11:32 | IPNPDOC ---
Date Seen The patient was seen on 07/26/18. Progress Note HPI: 68M pnh HTN and DM, left carotid artery stenosis s/p stenting, gout, CAD, ENEDINA, CKD3, recent GIB who initially presented to [facility] on 06/29/18 with reported seizures, arrived with a Arnav Coma Scale of 3, was given loading dose of Dilantin and intubated. CTH showed a right frontal mass so he was transferred to [facility] in [place], [place] for further work-up. At [place] MRI on 06-30-18 showed a 3cm by 3cm right frontal lobe lesion with a hemorrhagic component, possible neoplam or less likley transformation of an infarction. He was found to have leukocytosis which was thought to be from seizure activity and remained afebrile. He had significant hyponatremia, acute on chronic CKD and elevated blood sugars managed with insulin. He was evaluated by neurosurgery and had a resection of his right frontal mass on 07/04/18 after which he was maintained on a Decadron taper and continued on Dilantin for seizure prophylaxis. He was evaluated by therapy and noted to have significant impairment in his ADLs and gait, and was deemed medically appropriate for transfer to [facility] ARU on 07-09-18, as per Dr Young, with pathology pending from his recent tumor resection. Pt reports loose stools have improved, 1 yesterday. 1 documented so far today. denies abdominal pain, N/V. Appetite remains decreased. ID consulted to assist with antibiotic recommendations. S/P Fosfomycin as per ID for E coli UTI. Denies any fevers, chills, weakness, fatigue, STEPHENS, CP, palpitations. PE: GEN: 68yoM, appears stated age. Alert and oriented x 3. HEENT: Normocephalic, healing craniotomy scar. Sclera are nonicteric. Conjunctiva without injection. No facial asymmetry. Moist mucous membranes. CHEST: Regular rate and rhythm, +S1, +S2 LUNGS: Decreased BS but clear bilaterally. No wheezes, rales, or rhonchi appreciated. ABD: Round, soft, non-tender, non-distended. +Bowel sounds throughout. EXT: trace lower extremity edema appreciated. Rt hand edema improved, no erythema or TTP. SKIN: [place], dry, warm. No rashes. A&P: 1. Frontal cranial mass status post resection at [facility] in [place] on 07/05/2018. Mgmt as per ARU. PT/OT/ST as per ARU Pain control as per ARU DVT prophylaxis as per ARU, SQ Heparin. Outpt F/U with Neurosurgery. Continue on Decadron taper as per Neurosurgery. Continue on Dilantin seizure prophylaxis as per Neurosurgery. Dilantin dose adjusted as per attending to 175 Q8h, Dilantin level 07/26/18 10.8. Pt seen by Neurology. Outpt F/U planned. Seizure precautions. Slid OOB 07/14/18- CT head completed with no acute changes. Repeat CT 07/20/18 with no acute changes. 2. C diff. positive Afebrile. WBC 6.8. PO Vanco changed to Dificid 07/16/18. Dificid x 10d completed 07/25/18. Bacid 2 tab BID. HOLD Bowel care. HOLD PPI. ID following. 3. Hypokalemia. S/P po supplement . Monitor. 4. Hypomagnesemia. S/P mag run. Continue to monitor mag level. 5. Chronic kidney disease3. Nephrology following. SCr 1.22. trend improved. Diuretic on hold. S/P IVF as per Nephrology. 6. Gout. On Uloric. 7. Hypertension. Norvasc 10 mg daily, carvedilol 50mg mg BID. Hydralazine 25 mg Q6 with hold parameter. Monitor. 8. Coronary artery disease. ASA 9. Carotid stenosis, status post endarterectomy. 10. Congestive heart failure. Diuretic is on hold. Nephrology following. 10. Diabetes. Levemir d/cd 07/19/18, no further hypoglycemia. SSI Monitor 11. Benign prostatic hypertrophy (BPH). Flomax. 12. URI/Respiratory panel Rhinovirus. Afebrile. CXR 07/14/18 NAD. Tylenol/Duoneb/Robitussin. Encourage I/S. Monitor. 13. Anemia. Normocytic. Likely related to chronic disease/CKD. hgb 9.9. Fe studies, B12, folate 07/14/18. Folate supplement added. PRBC x 2 units 07/21. Monitor. 14. UTI. E Coli pansensitive. UC 07/18/18 pansensitive E coli. UC 07/20 E coli Pt treated with Fosfomycin as per ID. BC x 2 negative. ID following. 15. GI prophylaxis. HOLD PPI. Continue pepcid. 16. Rt hand edema. Improved. Possible IV infiltration. No erythema/warmth. VS, I&O, 24H, Fishbone Vital Signs/I&O Vital Signs Date Time Temp Pulse Resp B/P (MAP) Pulse Ox O2 Delivery O2 Flow Rate FiO2 07/26/18 09:26 78 164/82 07/26/18 06:00 97.6 18 97 07/21/18 05:40 Room Air I&O- Last 24 Hours up to 6 AM 07/26/18 06:00 Intake Total 1680 ml Output Total 1400 ml Balance 280 ml Laboratory Data 24H LABS Laboratory Tests 2 07/25/18 11:35: Bedside Glucose (Misc Panel) 217H 07/25/18 16:38: Bedside Glucose (Misc Panel) 136H 07/25/18 20:14: Bedside Glucose (Misc Panel) 133H 07/26/18 07:10: Nucleated Red Blood Cells % (auto) 0.0, Anion Gap 8, Glomerular Filtration Rate > 60.0, Blood Urea Nitrogen 16, Creatinine 1.22, Sodium Level 140, Potassium Level 3.7, Chloride Level 103, Carbon Dioxide Level 29, Calcium Level 7.9L, Aspartate Amino Transf (AST/SGOT) 16, Alanine Aminotransferase (ALT/SGPT) 13, Alkaline Phosphatase 159H, Total Bilirubin 0.3, Total Protein 6.1L, Albumin 2. 3L, Magnesium Level 1.8, Albumin/Globulin Ratio 0.61L, Phenytoin (Dilantin) Level 10.8 CBC/BMP Laboratory Tests 07/26/18 07:10 Red Blood Count 3.51 L, Mean Corpuscular Volume 86.6, Mean Corpuscular Hemoglobin 28.2, Mean Corpuscular Hemoglobin Concent 32.6, Red Cell Distribution Width 17.7 H, Calcium Level 7.9 L, Aspartate Amino Transf (AST/SGOT) 16, Alanine Aminotransferase (ALT/SGPT) 13, Alkaline Phosphatase 159 H, Total Bilirubin 0.3, Total Protein 6.1 L, Albumin 2.3 L Microbiology Microbiology 07/20/18 Blood Culture - Final, Complete NO GROWTH AFTER 5 DAYS 07/19/18 Blood Culture - Final, Complete NO GROWTH AFTER 5 DAYS 07/19/18 Stool Occult Blood (MAYCOL) - Final, Complete 07/20/18 Urine Culture - Final, Complete Escherichia Coli 07/18/18 Urine Culture - Final, Complete Escherichia Coli Saadia Campbell Jul 26, 2018 11:32
[2018-07-26 13:49] VITALS: BP 128/60
--- NOTE | 2018-07-26 14:28 | IPN ---
DATE OF SERVICE: 07/25/2018 SUBJECTIVE: Patient was seen and examined at the bedside today morning. He was laying in the bed. He was sleepy. Otherwise, he denies any active complaints. Renal function is stable. He is making a good amount of urine. OBJECTIVE: VITAL SIGNS: Temperature 96.2 degrees Fahrenheit, blood pressure 158/72, pulse 72, respiratory rate of 18, saturating 98% on room air. Intake and output: Urine output recorded is 1.2 liters so far today since overnight. Weight in the bed scale is 98 kg. PHYSICAL EXAMINATION: GENERAL: Patient is awake, alert, oriented times three. Laying in bed. Otherwise, he is slightly drowsy. HEAD/NECK: Extraocular muscles intact. Pupils equal, round, and reactive to light. His right sided craniotomy incision has healed. Neck is supple. There is no jugular venous distention (JVD). CARDIOVASCULAR: S1, S2. Regular rate. No murmur, rub or gallop. No edema of the bilateral lower extremities. RESPIRATORY: Chest clear to auscultation bilaterally. Bilaterally equal air entry. No rales or rhonchi. ABDOMEN: Soft, positive bowel sounds. Nontender. No organomegaly. MUSCULOSKELETAL: No clubbing or cyanosis. Pulses are 2+. [employer]: Patient moves all four extremities. No focal deficit. LAB REVIEW: CBC showed a WBC 5.6, hemoglobin 9.7, platelets 270. BMP showed sodium 139, potassium 3.3, chloride 101, bicarbonate 30, BUN 15, creatinine 1.1, calcium 7.9, magnesium 1.9, albumin 2.1. CURRENT INPATIENT MEDICATIONS: Patient's medications were all reviewed by me. His Coreg dose has been increased to 50 mg by mouth twice a day. He continues to be on Dificid. ASSESSMENT/PLAN: 1. Acute kidney injury superimposed on chronic kidney disease. Renal function has improved close to baseline. Creatinine is 1.1. Volume status is optimal at this point. 2. Hypokalemia. Patient was again given potassium chloride 20 mEq by mouth times one dose this morning. 3. Gout in the right wrist. His symptoms are significantly better. Continue current dose of Uloric 120 mg daily. The patient is currently on prednisone 20 mg by mouth twice a day. Last dose will be tonight. 4. Anemia secondary to chronic kidney disease. Hemoglobin is 9.7 which is optimal at this point. 5. C Difficile colitis. Patient is getting Dificid 200 mg by mouth twice a day. Diarrhea frequency is decreasing now 6. Urinary tract infection. Patient's E Coli urinary tract infection (UTI). He was given fosfomycin. No aggressive antibiotics at this point because of his C. difficile colitis.
--- NOTE | 2018-07-26 18:25 | IPNPDOC ---
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 REVIEW OF SYSTEMS: The following is a completed review of systems and has been reviewed. Review of systems otherwise unremarkable. PAIN: Patient self reports bilateral chronic knee pain EYES: Negative for recent vision changes EARS, NOSE, & THROAT: dysphagia (resolved) denies, rhinorrhea CARDIOVASCULAR: +sternal pain, otherwise no palpitations PULMONARY: Negative. Denies shortness of breath, cough resolved. GASTROINTESTINAL:+ diarrhea GENITOURINARY: Negative for dysuria or hematuria, + retention (improving) MUSCULOSKELETAL: bilateral knee OA vs gout NEUROLOGICAL: s/p right frontal lobe resection , seizures HEMATOLOGICAL: Negative SKIN: sacral ulcer PSYCHIATRIC: Unremarkable All other review of systems found to be negative. PHYSICAL EXAMINATION: VITAL SIGNS: Please see below. GENERAL: Pleasant and cooperative. No acute distress. HEENT: PERRL. Extraocular movements intact. Clear conjunctiva, left facial droop (eyebrow sparing) CARDIOVASCULAR: Regular rate and rhythm. No murmurs, rubs, or gallops +TTP sternal palpation LUNGS: Clear to auscultation bilaterally. No wheezes. No rhonchi ABDOMEN: Soft, nontender, nondistended. Positive bowel sounds. Normal active bowel sound NEUROLOGICAL: Alert and oriented times to self and place, not time Cranial nerves II through XII grossly intact. Sensation grossly intact able to follow 2-step commands, however unable to perform Luria, +Apraxia EXTREMITIES:5\5 strength bilateral upper extremities. >3/5 bilateral hip flexors and knee extensors, 5/5 bilateral ankle DF and EHL Bilateral knees warm to touch with effusion right wrist, mildly warm to touch and tender SKIN: sacral ulcer, right frontal craniotonomy incision c/d/i ASSESSMENT:68-year-old M with past medical history of ENEDINA, HTN, CAD who presents status post right frontal mass resection with seizures. PLAN: 1. rehab: PTOT, MANAGER BILLING advance diet, assess for DME- significant apraxia, able to participate more in therapy, ambulating further with RW, however cognition impaired and will resume MANAGER BILLING on Thursday and encourage for cognitive tasks in OT for safe discharge to home 2. Neuro:s/p right frontal mass resection, pathology per negative however awaiting offical results results, Dilantin for seizures 125q8h, however levels low at 9.1, increased to 150 qh on 07/12/18 and on 07/19/18 8.6 will increase to 175q8h and recheck 07/26/18 - neuro consult recs appreciated, s/p Decadron taper more quickly and will consider transition to Depakote given his impaired renal function -will need outpatient neuro f/u 2-4 weeks from discharge to review scans from [facility] and consider carotid US, he is s/p left CEA performed in by Dr. Rosa and currently has right carotid artery stenosis -reschedule surgery follow-up until 08/05/18 at 9:[address] Tello, path results do not suggest malignant tissue 3. Cardio: pmh HTn and HLD, hx of CHF, diuretics on hold per renal recs- medicine consulted, increased beta-ronda and added hydralazine for elevated BPs-imrproving 4. Resp: ENEDINA non-compliant with CPAP, cough improved, recent diagnosis of Rhinovirus, off droplet precautions now 5. Endo: pmh DM continue home meds and adjust prn 6. Rheum: pmh gout, continue Uloric 7. DVT ppx: continue heparin, US of right UE negative for DVT 8. GI ppx: omeprazole, patient found to have +C diff , given persistent diarrhea on Vancomycin, switched to Difficit 200mg BID x 10 days, reports no diarrhea today and was seen eating chicken wings, s/p IVF for GI losses, will hold off on fecal transplant 9. : admission UA and Ucx negative monitor PVRs- repeat Ua and Ucx positive for E. Coli, ID consulted, s/p Fosfomycin, recs appreciated, renal consulted for retention and metabolic acidosis requiring Bicarb drips recs appreciated 10. Heme: patient with anemia of chronic disease, given 2 units prbc per renal recs on 07/21, concern for possible gout in right hand, short course of steroids per renal- recs appreciated 10. Pain: patient with headaches, Tylenol and Fiorcet prn 11. Dispo: 08/02/18, slowly progressing towards goals, will request more time to work on safer discharge to home where he will not have 12/01 supervision Allergies Coded Allergies: No Known Allergies (Verified , 03/30/18) Vital Signs Vital Signs Date Time Temp Pulse Resp B/P (MAP) Pulse Ox O2 Delivery O2 Flow Rate FiO2 07/26/18 17:35 152/66 07/26/18 13:49 96.7 74 18 100 07/21/18 05:40 Room Air Laboratory Data CBC/BMP Laboratory Tests 07/26/18 07:10 Red Blood Count 3.51 L, Mean Corpuscular Volume 86.6, Mean Corpuscular Hemoglobin 28.2, Mean Corpuscular Hemoglobin Concent 32.6, Red Cell Distribution Width 17.7 H, Calcium Level 7.9 L, Aspartate Amino Transf (AST/SGOT) 16, Alanine Aminotransferase (ALT/SGPT) 13, Alkaline Phosphatase 159 H, Total Bilirubin 0.3, Total Protein 6.1 L, Albumin 2.3 L Labs 24H Laboratory Tests 2 07/25/18 20:14: Bedside Glucose (Misc Panel) 133H 07/26/18 07:10: Nucleated Red Blood Cells % (auto) 0.0, Anion Gap 8, Glomerular Filtration Rate > 60.0, Blood Urea Nitrogen 16, Creatinine 1.22, Sodium Level 140, Potassium Level 3.7, Chloride Level 103, Carbon Dioxide Level 29, Calcium Level 7.9L, Aspartate Amino Transf (AST/SGOT) 16, Alanine Aminotransferase (ALT/SGPT) 13, Alkaline Phosphatase 159H, Total Bilirubin 0.3, Total Protein 6.1L, Albumin 2.3L, Magnesium Level 1.8, Albumin/Globulin Ratio 0.61L, Phenytoin (Dilantin) Level 10.8 07/26/18 17:03: Bedside Glucose (Misc Panel) 111 Microbiology Microbiology 07/20/18 Blood Culture - Final, Complete NO GROWTH AFTER 5 DAYS 07/19/18 Blood Culture - Final, Complete NO GROWTH AFTER 5 DAYS 07/19/18 Stool Occult Blood (MAYCOL) - Final, Complete 07/20/18 Urine Culture - Final, Complete Escherichia Coli 07/18/18 Urine Culture - Final, Complete Escherichia Coli Current Medications Current Medications Current Medications Acetaminophen (Tylenol Tab) 650 mg DAILY PRN PO fever; Start 07/09/18 at 21:00 Acetaminophen (Tylenol Tab) 1,000 mg TID PO Last administered on 07/26/18at 16:34; Start 07/09/18 at 21:00 Acetaminophen/ Butalbital/ Caffeine (Fioricet) 1 ea Q6HP PRN PO HEADACHE Last administered on 07/12/18 12:58; Start 07/12/18 at 11:00 Albuterol/ Ipratropium (Duoneb (Ipr 0.5mg/Alb 2.5mg)) 3 ml BID NEB ; Start 07/14/18 at 21:00; Status UNV Albuterol/ Ipratropium (Duoneb (Ipr 0.5mg/Alb 2.5mg)) 3 ml RBID NEB Last administered on 07/26/18 07:59; Start 07/10/18 at 08:00 Amlodipine Besylate (Norvasc) 10 mg DAILY PO Last administered on 07/26/18 09:26; Start 07/10/18 at 09:00 Aspirin (Ecotrin) 81 mg DAILY PO Last administered on 07/26/18 09:26; Start 07/10/18 at 09:00 Bisacodyl (Dulcolax Suppository) 10 mg DAILYPRN PRN OR CONSTIPATION; Start 07/09/18 at 21:15; Stop 07/20/18 at 14:26; Status DC Calcitriol (Rocaltrol) 0.25 mcg DAILY PO Last administered on 07/26/18 09:26; Start 07/10/18 at 09:00 Calcium Carbonate (Tums) 500 mg DAILYPRN PRN PO INDIGESTION Last administered on 07/20/18at 01:22; Start 07/19/18 at 20:00 Carvedilol (COReg) 12.5 mg BID PO Last administered on 07/14/18at 09:03; Start 07/09/18 at 21:00; Stop 07/14/18 at 11:08; Status DC Carvedilol (COReg) 25 mg BID PO Last administered on 07/19/18 08:40; Start 07/14/18 at 21:00; Stop 07/19/18 at 10:30; Status DC Carvedilol (COReg) 37.5 mg BID PO Last administered on 07/25/18 08:48; Start 07/19/18 at 21:00; Stop 07/25/18 at 18:46; Status DC Carvedilol (COReg) 50 mg BID PO Last administered on 07/26/18 09:27; Start 07/25/18 at 21:00 Cefepime HCl 1 gm/ Dextrose 50 ml @ 100 mls/hr Q24H IV Last administered on 07/20/18 15:15; Start 07/20/18 at 13:00; Stop 07/20/18 at 19:38; Status DC Cod Liver Oil/ Zinc Oxide (Desitin) apply to sacrum BID TOP Last administered on 07/26/18 09:27; Start 07/10/18 at 09:00 Dexamethasone (Decadron) 2 mg DAILY PO Last administered on 07/20/18 10:34; Start 07/16/18 at 09:00; Stop 07/21/18 at 08:59; Status DC Dexamethasone (Decadron) 2 mg DAILY PO ; Start 07/18/18 at 09:00; Stop 07/18/18 at 09:00; Status DC Dexamethasone (Decadron) 2 mg Q12H PO Last administered on 07/15/18at 21:09; Start 07/13/18 at 21:00; Stop 07/15/18 at 21:55; Status DC Dexamethasone (Decadron) 4 mg Q12H PO Last administered on 07/13/18at 08:35; Start 07/09/18 at 21:00; Stop 07/13/18 at 20:59; Status DC Dextrose (Dextrose 50%) 25 ml ASDIRECTED PRN IV SEE LABEL COMMENTS; Start 07/09/18 at 21:00 Famotidine (Pepcid) 10 mg BID PO Last administered on 07/26/18 09:24; Start 07/12/18 at 15:00 Febuxostat (Uloric) 120 mg DAILY PO Last administered on 07/26/18 09:26; Start 07/10/18 at 09:00 Fidaxomicin (Dificid) 200 mg BID PO Last administered on 07/25/18 21:55; Start 07/16/18 at 11:45; Stop 07/25/18 at 21:01; Status DC Folic Acid (Folic Acid) 1 mg DAILY PO Last administered on 07/26/18 09:26; Start 07/16/18 at 09:00 Fosfomycin Tromethamine (Monurol) 3 gm Q2D PO Last administered on 07/24/18 08:52; Start 07/22/18 at 09:00; Stop 07/24/18 at 12:00; Status DC Gemfibrozil (Lopid) 600 mg BID PO Last administered on 07/26/18 09:26; Start 07/09/18 at 21:00 Glucagon (Glucagon) 1 mg ASDIRECTED PRN SC SEE LABEL COMMENTS; Start 07/09/18 at 21:00 Glucose (Glucose) 16 GM ASDIRECTED PRN PO SEE LABEL COMMENTS; Start 07/09/18 at 21:00 Guaifenesin (Robitussin Tab) 400 mg TID PO Last administered on 07/26/18 16:34; Start 07/10/18 at 09:00 Guaifenesin (Robitussin Tab) 400 mg TID PO ; Start 07/14/18 at 21:00; Stop at 21:00; Status DC Heparin Sodium (Porcine) (Heparin) 5,000 units Q8H SQ Last administered on 07/26/18 13:47; Start 07/09/18 at 22:00 Home Med (Med Rec Complete!) ASDIRECTED XX ; Start 07/09/18 at 23:00; Stop 07/09/18 at 23:00; Status DC Hydralazine HCl (Apresoline) 25 mg Q6H PO Last administered on 07/23/18 05:52; Start 07/20/18 at 12:00; Stop 07/23/18 at 11:52; Status DC Hydralazine HCl (Apresoline) 50 mg Q6H PO Last administered on 07/26/18 17:35; Start 07/23/18 at 12:00 Insulin Detemir (Levemir Insulin) 10 units QHS SC Last administered on 07/16/18 21:49; Start 07/15/18 at 21:00; Stop 07/19/18 at 13:01; Status DC Insulin Detemir (Levemir Insulin) 20 units QHS SC Last administered on 07/14/18 22:04; Start 07/09/18 at 21:00; Stop 07/15/18 at 14:20; Status DC Insulin Human Lispro (HumaLOG INSULIN) SEE PROTOCOL TABLE AC SC Last administered on 07/26/18 17:32; Start 07/10/18 at 07:30 Lactobacillus Acidophilus (Bacid) 1 ea BIDWM PO Last administered on 07/14/18 08:59; Start 07/11/18 at 08:00; Stop 07/14/18 at 13:09; Status DC Lactobacillus Acidophilus (Bacid) 2 ea BIDWM PO Last administered on 07/26/18 17:32; Start 07/14/18 at 18:00 Lidocaine (Lidoderm Patch) 1 patch DAILY TD Last administered on 07/26/18 09:25; Start 07/10/18 at 09:00 Lorazepam (Ativan) 2 mg Q6H PRN IV SEIZURES; Start 07/10/18 at 02:30; Stop 07/22/18 at 12:01; Status DC Magnesium Hydroxide (Milk Of Magnesia) 30 ml DAILYPRN PRN PO CONSTIPATION; Start 07/09/18 at 21:15; Stop 07/20/18 at 14:26; Status DC Metronidazole (Flagyl) 500 mg Q8H PO Last administered on 07/11/18at 05:01; St art 07/11/18 at 04:00; Stop 07/11/18 at 07:12; Status DC Miscellaneous (Unresolved Clarification Entry) SEE LABEL COMMENTS DAILY XX ; Start 07/21/18 at 09:00; Stop 07/22/18 at 07:12; Status DC Miscellaneous (Unresolved Clarification Entry) SEE LABEL COMMENTS DAILY XX ; Start 07/22/18 at 09:00; Stop 07/23/18 at 04:46; Status DC Non-Formulary Medication ( See Comment Field Below ) REMOVE LIDODERM PATCH DAILY@21 XX Last administered on 07/25/18at 21:00; Start 07/09/18 at 21:00 Omeprazole (PriLOSEC) 40 mg QHS PO Last administered on 07/11/18 22:26; Start 07/09/18 at 21:00; Stop 07/12/18 at 14:39; Status DC Ondansetron HCl (Zofran) 4 mg Q6HP PRN PO NAUSEA Last administered on 07/26/18 08:17; Start 07/09/18 at 21:15 Phenytoin (Dilantin Chewable) 125 mg Q8H PO Last administered on 1/21/19at 05:49; Start 07/09/18 at 22:00; Stop 07/12/18 at 10:30; Status DC Phenytoin (Dilantin Chewable) 150 mg Q8H PO Last administered on 07/19/18at 13:01; Start 07/12/18 at 14:00; Stop 07/19/18 at 15:37; Status DC Phenytoin (Dilantin Chewable) 175 mg Q8H PO Last administered on 07/26/18at 13:46; Start 07/19/18 at 22:00 Potassium Chloride (Micro-K Extencaps) 20 meq DAILY PO Last administered on 06/23 12/08at 10:19; Start 07/12/18 at 09:00; Stop 07/17/18 at 11:48; Status DC Prednisone (Deltasone) 20 mg BID PO Last administered on 07/25/18 08:47; Start 07/23/18 at 21:00; Stop 07/25/18 at 10:00; Status DC Senna/Docusate Sodium (Senokot S) 1 tab BID PO Last administered on 07/11/18 22:23; Start 07/10/18 at 09:00; Stop 07/12/18 at 14:39; Status DC Sodium Bicarbonate 150 meq/Sterile Water 1,150 ml @ 60 mls/hr [id number] IV Last administered on 07/22/18at 17:42; Start 07/20/18 at 09:00; Stop 07/23/18 at 04:19; Status DC Sodium Bicarbonate 150 meq/Sterile Water 1,150 ml @ 60 mls/hr [id number] IV ; Start 07/23/18 at 08:00; Stop 07/23/18 at 08:00; Status DC Tamsulosin HCl (Flomax) 0.4 mg QHS PO Last administered on 07/25/18 21:55; Start 07/09/18 at 21:00 Torsemide (Demadex) 50 mg BID@09,17 PO ; Start 07/10/18 at 09:00; Stop 07/10/18 at 09:24; Status DC Trazodone HCl (Desyrel) 25 mg QHSP PRN PO INSOMNIA Last administered on 07/23/18at 20:53; Start 07/09/18 at 21:00 Vancomycin HCl (First-Vancomycin 50(Firvanq)- 250mg/5ml) 125 mg Q6H PO Last administered on 07/16/18at 05:44; Start 07/11/18 at 06:00; Stop 07/16/18 at 11:37; Status DC Zinc Oxide (Boudreauxs Butt Paste) sacrum BID TOP ; Start 07/10/18 at 09:00; Stop 07/10/18 at 13:02; Status DC ESTRELLITA STANTON MD Jul 26, 2018 18:25
--- NOTE | 2018-07-26 18:26 | IPNPDOC ---
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 He is having trouble sleeping. REVIEW OF SYSTEMS: The following is a completed review of systems and has been reviewed. Review of systems otherwise unremarkable. PAIN: Patient self reports bilateral chronic knee pain EYES: Negative for recent vision changes EARS, NOSE, & THROAT: dysphagia (resolved) denies, rhinorrhea CARDIOVASCULAR: +sternal pain, otherwise no palpitations PULMONARY: Negative. Denies shortness of breath, cough resolved. GASTROINTESTINAL:+ diarrhea GENITOURINARY: Negative for dysuria or hematuria, + retention (improving) MUSCULOSKELETAL: bilateral knee OA vs gout NEUROLOGICAL: s/p right frontal lobe resection , seizures HEMATOLOGICAL: Negative SKIN: sacral ulcer PSYCHIATRIC: Unremarkable All other review of systems found to be negative. PHYSICAL EXAMINATION: VITAL SIGNS: Please see below. GENERAL: Pleasant and cooperative. No acute distress. HEENT: PERRL. Extraocular movements intact. Clear conjunctiva, left facial droop (eyebrow sparing) CARDIOVASCULAR: Regular rate and rhythm. No murmurs, rubs, or gallops +TTP sternal palpation LUNGS: Clear to auscultation bilaterally. No wheezes. No rhonchi ABDOMEN: Soft, nontender, nondistended. Positive bowel sounds. Normal active bowel sound NEUROLOGICAL: Alert and oriented times to self and place, not time Cranial nerves II through XII grossly intact. Sensation grossly intact able to follow 2-step commands, however unable to perform Luria, +Apraxia EXTREMITIES:5\5 strength bilateral upper extremities. >3/5 bilateral hip flexors and knee extensors, 5/5 bilateral ankle DF and EHL Bilateral knees warm to touch with effusion right wrist, mildly warm to touch and tender SKIN: sacral ulcer, right frontal craniotonomy incision c/d/i ASSESSMENT:68-year-old M with past medical history of ENEDINA, HTN, CAD who presents status post right frontal mass resection with seizures. PLAN: 1. rehab: PTOT, SYSTEMS ADMIN advance diet, assess for DME- significant apraxia, able to participate more in therapy, ambulating further with RW, however cognition impaired and will resume SYSTEMS ADMIN on Thursday and encourage for cognitive tasks in OT for safe discharge to home 2. Neuro:s/p right frontal mass resection, pathology per negative however awaiting offical results results, Dilantin for seizures 125q8h, however levels low at 9.1, increased to 150 qh on 07/12/18 and on 07/19/18 8.6 will increase to 175q8h and recheck 07/26/18 - neuro consult recs appreciated, s/p Decadron taper more quickly and will consider transition to Depakote given his impaired renal function -will need outpatient neuro f/u 2-4 weeks from discharge to review scans from [facility] and consider carotid US, he is s/p left CEA performed in by Dr. Rosa and currently has right carotid artery stenosis -reschedule surgery follow-up until 08/05/18 at 9:[address] Tello, path results do not suggest malignant tissue 3. Cardio: pmh HTn and HLD, hx of CHF, diuretics on hold per renal recs- medicine consulted, increased beta-ronda and added hydralazine for elevated BPs-imrproving 4. Resp: ENEDINA non-compliant with CPAP, cough improved, recent diagnosis of Rhinovirus, off droplet precautions now 5. Endo: pmh DM continue home meds and adjust prn 6. Rheum: pmh gout, continue Uloric 7. DVT ppx: continue heparin, US of right UE negative for DVT 8. GI ppx: omeprazole, patient found to have +C diff , given persistent diarrhea on Vancomycin, switched to Difficit 200mg BID x 10 days, reports no diarrhea today and was seen eating chicken wings, s/p IVF for GI losses, will hold off on fecal transplant 9. : admission UA and Ucx negative monitor PVRs- repeat Ua and Ucx positive for E. Coli, ID consulted, s/p Fosfomycin, recs appreciated, renal consulted for retention and metabolic acidosis requiring Bicarb drips recs appreciated 10. Heme: patient with anemia of chronic disease, given 2 units prbc per renal recs on 07/21, concern for possible gout in right hand, short course of steroids per renal- recs appreciated 10. Pain: patient with headaches, Tylenol and Fiorcet prn 11. Dispo: 08/02/18, slowly progressing towards goals, will request more time to work on safer discharge to home where he will not have 24/7 supervision, spoke with and she would prefer 08/06/18 for discharge and plans to obtain security camera and be home with him for 10 days for vacation Allergies Coded Allergies: No Known Allergies (Verified , 03/30/18) Vital Signs Vital Signs Date Time Temp Pulse Resp B/P (MAP) Pulse Ox O2 Delivery O2 Flow Rate FiO2 07/26/18 17:35 152/66 07/26/18 13:49 96.7 74 18 100 07/21/18 05:40 Room Air Laboratory Data CBC/BMP Laboratory Tests 07/26/18 07:10 Red Blood Count 3.51 L, Mean Corpuscular Volume 86.6, Mean Corpuscular Hemoglobin 28.2, Mean Corpuscular Hemoglobin Concent 32.6, Red Cell Distribution Width 17.7 H, Calcium Level 7.9 L, Aspartate Amino Transf (AST/SGOT) 16, Alanine Aminotransferase (ALT/SGPT) 13, Alkaline Phosphatase 159 H, Total Bilirubin 0.3, Total Protein 6.1 L, Albumin 2.3 L Labs 24H Laboratory Tests 2 07/25/18 20:14: Bedside Glucose (Misc Panel) 133H 07/26/18 07:10: Nucleated Red Blood Cells % (auto) 0.0, Anion Gap 8, Glomerular Filtration Rate > 60.0, Blood Urea Nitrogen 16, Creatinine 1.22, Sodium Level 140, Potassium Level 3.7, Chloride Level 103, Carbon Dioxide Level 29, Calcium Level 7.9L, Aspartate Amino Transf (AST/SGOT) 16, Alanine Aminotransferase (ALT/SGPT) 13, Alkaline Phosphatase 159H, Total Bilirubin 0.3, Total Protein 6.1L, Albumin 2.3L, Magnesium Level 1.8, Albumin/Globulin Ratio 0.61L, Phenytoin (Dilantin) Level 10.8 07/26/18 17:03: Bedside Glucose (Misc Panel) 111 Microbiology Microbiology 07/20/18 Blood Culture - Final, Complete NO GROWTH AFTER 5 DAYS 07/19/18 Blood Culture - Final, Complete NO GROWTH AFTER 5 DAYS 07/19/18 Stool Occult Blood (MAYCOL) - Final, Complete 07/20/18 Urine Culture - Final, Complete Escherichia Coli 07/18/18 Urine Culture - Final, Complete Escherichia Coli Current Medications Current Medications Current Medications Acetaminophen (Tylenol Tab) 650 mg DAILY PRN PO fever; Start 07/09/18 at 21:00 Acetaminophen (Tylenol Tab) 1,000 mg TID PO Last administered on 07/26/18 16:34; Start 07/09/18 at 21:00 Acetaminophen/ Butalbital/ Caffeine (Fioricet) 1 ea Q6HP PRN PO HEADACHE Last administered on 07/12/18 12:58; Start 07/12/18 at 11:00 Albuterol/ Ipratropium (Duoneb (Ipr 0.5mg/Alb 2.5mg)) 3 ml BID NEB ; Start 07/14/18 at 21:00; Status UNV Albuterol/ Ipratropium (Duoneb (Ipr 0.5mg/Alb 2.5mg)) 3 ml RBID NEB Last administered on 07/26/18 07:59; Start 07/10/18 at 08:00 Amlodipine Besylate (Norvasc) 10 mg DAILY PO Last administered on 07/26/18 09:26; Start 07/10/18 at 09:00 Aspirin (Ecotrin) 81 mg DAILY PO Last administered on 07/26/18 09:26; Start 07/10/18 at 09:00 Bisacodyl (Dulcolax Suppository) 10 mg DAILYPRN PRN MD CONSTIPATION; Start 07/09/18 at 21:15; Stop 07/20/18 at 14:26; Status DC Calcitriol (Rocaltrol) 0.25 mcg DAILY PO Last administered on 07/26/18 09:26; Start 07/10/18 at 09:00 Calcium Carbonate (Tums) 500 mg DAILYPRN PRN PO INDIGESTION Last administered on 07/20/18 01:22; Start 07/19/18 at 20:00 Carvedilol (COReg) 12.5 mg BID PO Last administered on 07/14/18 09:03; Start 07/09/18 at 21:00; Stop 07/14/18 at 11:08; Status DC Carvedilol (COReg) 25 mg BID PO Last administered on 07/19/18 08:40; Start 07/14/18 at 21:00; Stop 07/19/18 at 10:30; Status DC Carvedilol (COReg) 37.5 mg BID PO Last administered on 07/25/18 08:48; Start 07/19/18 at 21:00; Stop 07/25/18 at 18:46; Status DC Carvedilol (COReg) 50 mg BID PO Last administered on 07/26/18 09:27; Start 07/25/18 at 21:00 Cefepime HCl 1 gm/ Dextrose 50 ml @ 100 mls/hr Q24H IV Last administered on 07/20/18 15:15; Start 07/20/18 at 13:00; Stop 07/20/18 at 19:38; Status DC Cod Liver Oil/ Zinc Oxide (Desitin) apply to sacrum BID TOP Last administered on 07/26/18 09:27; Start 07/10/18 at 09:00 Dexamethasone (Decadron) 2 mg DAILY PO Last administered on 07/20/18 10:34; Start 07/16/18 at 09:00; Stop 07/21/18 at 08:59; Status DC Dexamethasone (Decadron) 2 mg DAILY PO ; Start 07/18/18 at 09:00; Stop 07/18/18 at 09:00; Status DC Dexamethasone (Decadron) 2 mg Q12H PO Last administered on 07/15/18 21:09; Start 07/13/18 at 21:00; Stop 07/15/18 at 21:55; Status DC Dexamethasone (Decadron) 4 mg Q12H PO Last administered on 07/13/18 08:35; Start 07/09/18 at 21:00; Stop 07/13/18 at 20:59; Status DC Dextrose (Dextrose 50%) 25 ml ASDIRECTED PRN IV SEE LABEL COMMENTS; Start 07/09/18 at 21:00 Famotidine (Pepcid) 10 mg BID PO Last administered on 07/26/18 09:24; Start 07/12/18 at 15:00 Febuxostat (Uloric) 120 mg DAILY PO Last administered on 07/26/18 09:26; Start 07/10/18 at 09:00 Fidaxomicin (Dificid) 200 mg BID PO Last administered on 07/25/18 21:55; Start 07/16/18 at 11:45; Stop 07/25/18 at 21:01; Status DC Folic Acid (Folic Acid) 1 mg DAILY PO Last administered on 07/26/18 09:26; Start 07/16/18 at 09:00 Fosfomycin Tromethamine (Monurol) 3 gm Q2D PO Last administered on 07/24/18 08:52; Start 07/22/18 at 09:00; Stop 07/24/18 at 12:00; Status DC Gemfibrozil (Lopid) 600 mg BID PO Last administered on 07/26/18 09:26; Start 07/09/18 at 21:00 Glucagon (Glucagon) 1 mg ASDIRECTED PRN SC SEE LABEL COMMENTS; Start 07/09/18 at 21:00 Glucose (Glucose) 16 GM ASDIRECTED PRN PO SEE LABEL COMMENTS; Start 07/09/18 at 21:00 Guaifenesin (Robitussin Tab) 400 mg TID PO Last administered on 07/26/18 16:34; Start 07/10/18 at 09:00 Guaifenesin (Robitussin Tab) 400 mg TID PO ; Start 07/14/18 at 21:00; Stop 07/14/18 at 21:00; Status DC Heparin Sodium (Porcine) (Heparin) 5,000 units Q8H SQ Last administered on 07/26/18 13:47; Start 07/09/18 at 22:00 Home Med (Med Rec Complete!) ASDIRECTED XX ; Start 07/09/18 at 23:00; Stop 07/09/18 at 23:00; Status DC Hydralazine HCl (Apresoline) 25 mg Q6H PO Last administered on 07/23/18 05:52; Start 07/20/18 at 12:00; Stop 07/23/18 at 11:52; Status DC Hydralazine HCl (Apresoline) 50 mg Q6H PO Last administered on 07/26/18 17:35; Start 07/23/18 at 12:00 Insulin Detemir (Levemir Insulin) 10 units QHS SC Last administered on 07/16/18 21:49; Start 07/15/18 at 21:00; Stop 07/19/18 at 13:01; Status DC Insulin Detemir (Levemir Insulin) 20 units QHS SC Last administered on 07/14/18at 22:04; Start 07/09/18 at 21:00; Stop 07/15/18 at 14:20; Status DC Insulin Human Lispro (HumaLOG INSULIN) SEE PROTOCOL TABLE AC SC Last administered on 07/26/18at 17:32; Start 07/10/18 at 07:30 Lactobacillus Acidophilus (Bacid) 1 ea BIDWM PO Last administered on 07/14/18at 08:59; Start 07/11/18 at 08:00; Stop 07/14/18 at 13:09; Status DC Lactobacillus Acidophilus (Bacid) 2 ea BIDWM PO Last administered on 07/26/18at 17:32; Start 07/14/18 at 18:00 Lidocaine (Lidoderm Patch) 1 patch DAILY TD Last administered on 07/26/18 09:25; Start 07/10/18 at 09:00 Lorazepam (Ativan) 2 mg Q6H PRN IV SEIZURES; Start 07/10/18 at 02:30; Stop 07/22/18 at 12:01; Status DC Magnesium Hydroxide (Milk Of Magnesia) 30 ml DAILYPRN PRN PO CONSTIPATION; Start 07/09/18 at 21:15; Stop 07/20/18 at 14:26; Status DC Metronidazole (Flagyl) 500 mg Q8H PO Last administered on 07/11/18at 05:01; Start 07/11/18 at 04:00; Stop 07/11/18 at 07:12; Status DC Miscellaneous (Unresolved Clarification Entry) SEE LABEL COMMENTS DAILY XX ; Start 07/21/18 at 09:00; Stop 07/22/18 at 07:12; Status DC Miscellaneous (Unresolved Clarification Entry) SEE LABEL COMMENTS DAILY XX ; Start 07/22/18 at 09:00; Stop 07/23/18 at 04:46; Status DC Non-Formulary Medication ( See Comment Field Below ) REMOVE LIDODERM PATCH DAILY@21 XX Last administered on 07/25/18at 21:00; Start 07/09/18 at 21:00 Omeprazole (PriLOSEC) 40 mg QHS PO Last administered on 07/11/18at 22:26; Start 07/09/18 at 21:00; Stop 07/12/18 at 14:39; Status DC Ondansetron HCl (Zofran) 4 mg Q6HP PRN PO NAUSEA Last administered on 07/26/18 08:17; Start 07/09/18 at 21:15 Phenytoin (Dilantin Chewable) 125 mg Q8H PO Last administered on 07/12/18at 05:49; Start 07/09/18 at 22:00; Stop 07/12/18 at 10:30; Status DC Phenytoin (Dilantin Chewable) 150 mg Q8H PO Last administered on 07/19/18at 13:01; Start 07/12/18 at 14:00; Stop 07/19/18 at 15:37; Status DC Phenytoin (Dilantin Chewable) 175 mg Q8H PO Last administered on 07/26/18at 13:46; Start 07/19/18 at 22:00 Potassium Chloride (Micro-K Extencaps) 20 meq DAILY PO Last administered on 07/17/18at 10:19; Start 07/12/18 at 09:00; Stop 07/17/18 at 11:48; Status DC Prednisone (Deltasone) 20 mg BID PO Last administered on 07/25/18 08:47; Start 07/23/18 at 21:00; Stop 07/25/18 at 10:00; Status DC Senna/Docusate Sodium (Senokot S) 1 tab BID PO Last administered on 07/11/18at 22:23; Start 07/10/18 at 09:00; Stop 07/12/18 at 14:39; Status DC Sodium Bicarbonate 150 meq/Sterile Water 1,150 ml @ 60 mls/hr [id number] IV Last administered on 07/22/18at 17:42; Start 07/20/18 at 09:00; Stop 07/23/18 at 04:19; Status DC Sodium Bicarbonate 150 meq/Sterile Water 1,150 ml @ 60 mls/hr [id number] IV ; Start 07/23/18 at 08:00; Stop 07/23/18 at 08:00; Status DC Tamsulosin HCl (Flomax) 0.4 mg QHS PO Last administered on 07/25/18at 21:55; Start 07/09/18 at 21:00 Torsemide (Demadex) 50 mg BID@09,17 PO ; Start 07/10/18 at 09:00; Stop 07/10/18 at 09:24; Status DC Trazodone HCl (Desyrel) 25 mg QHSP PRN PO INSOMNIA Last administered on 07/23/18at 20:53; Start 07/09/18 at 21:00 Vancomycin HCl (First-Vancomycin 50(Firvanq)- 250mg/5ml) 125 mg Q6H PO Last administered on 07/16/18at 05:44; Start 07/11/18 at 06:00; Stop 07/16/18 at 11:37; Status DC Zinc Oxide (Boudreauxs Butt Paste) sacrum BID TOP ; Start 07/10/18 at 09:00; Stop 07/10/18 at 13:02; Status DC ESTRELLITA STANTON MD Jul 26, 2018 18:26
[2018-07-26 20:00] VITALS: BP 152/80
[2018-07-26] MEDS: **NOTE PATIENT COMMENT** MISC XX SCH (21:00)
[2018-07-26] MEDS: TAMSULOSIN 0.4 MG CAP PO SCH (21:26)
[2018-07-26] MEDS: traZODone 25MG PER 1/2 TABLET PO PRN (23:12)
[2018-07-27] MEDS: HEPARIN SOD (PORCINE) 5000 UNITS/ML VIAL SQ SCH ×3 (05:45→21:47)
[2018-07-27] MEDS: PHENYTOIN 50 MG CHEW TABLET PO SCH ×3 (05:45→21:46)
[2018-07-27] MEDS: **hydrALAZINE** 50 MG TAB PO SCH ×4 (05:45→23:06)
[2018-07-27 06:10] VITALS: BP 158/82
[2018-07-27 07:20] LABS: HEMOGLOBIN 9.1 g/dl (13.5-17.5); MEAN CORPUSCULAR HEMOGLOBIN 28.5 pg (27.0-33.0); MEAN CORPUSCULAR HGB CONC 32.5 g/dl (32.0-36.5); MEAN CORPUSCULAR VOLUME 87.8 fl (80.0-96.0); PLATELET COUNT, AUTOMATED 253 10^3/uL (150-450); RED BLOOD COUNT 3.19 10^6/uL (4.30-6.10); WHITE BLOOD COUNT 5.5 10^3/uL (4.0-10.0)
[2018-07-27] MEDS: IPRATROPIUM 0.5MG/ALBUTEROL 2.5MG INH SOL UD 3ML (DUONEB)(J7620) NEB SCH ×2 (07:49→20:58)
[2018-07-27] MEDS: HumaLOG INSULIN (NovoLOG) PER UNIT SC SCH (07:52)
[2018-07-27] MEDS: GEMFIBROZIL 600 MG TAB PO SCH ×2 (07:52→21:45)
[2018-07-27] MEDS: LACTOBACILLUS ACIDOPHILUS CAP (BACID) PO SCH ×2 (07:52→17:34)
[2018-07-27 07:53] LABS: ALBUMIN 2.1 GM/DL (3.2-5.2); BILIRUBIN,TOTAL 0.2 MG/DL (0.2-1.0); CALCIUM LEVEL 7.8 MG/DL (8.8-10.2); CREATININE FOR GFR 1.3 MG/DL (0.70-1.30); GLOMERULAR FILTRATION RATE 58.6 (>49); MAGNESIUM LEVEL 1.6 MG/DL (1.8-2.4); POTASSIUM SERUM 3.6 MEQ/L (3.5-5.1); TOTAL PROTEIN 6.1 GM/DL (6.4-8.2)
[2018-07-27] MEDS: FEBUXOSTAT 40 MG TABLET (ULORIC) PO SCH (07:53)
[2018-07-27] MEDS: amLODIPine 10 MG TAB PO SCH (07:53)
[2018-07-27] MEDS: CARVedilol 12.5 MG TAB PO SCH ×2 (07:53→21:46)
[2018-07-27] MEDS: FAMOTIDINE 20 MG TAB PO SCH ×2 (07:53→21:45)
[2018-07-27] MEDS: ASPIRIN 81 MG ENTERIC TAB PO SCH (07:53)
[2018-07-27] MEDS: guaiFENesin 200 MG TAB PO SCH ×3 (07:54→21:46)
[2018-07-27] MEDS: FOLIC ACID 1 MG TAB PO SCH (07:54)
[2018-07-27] MEDS: LIDOCAINE 5% (LIDODERM) PATCH TD SCH (07:54)
[2018-07-27] MEDS: CALCITRIOL 0.25 MCG CAP (S0169) PO SCH (07:54)
[2018-07-27] MEDS: DIAPER RELIEF PASTE (DESITIN) 60GM TOP SCH ×2 (07:55→21:00)
--- NOTE | 2018-07-27 08:14 | IPN ---
DATE OF SERVICE: 07/26/2018 SUBJECTIVE: Patient was seen and examined at the bedside today morning. Patient is afebrile. Hemodynamically stable. His renal function is stable. His creatinine is at 1.2 today. He denies any active complaints. OBJECTIVE: VITAL SIGNS: Temperature 96.7 degrees Fahrenheit, blood pressure 128/60, pulse 74, respiratory rate of 18, saturating 100% on room air. Intake and output: Urine output recorded is 1500 mL overnight. Weight in the bed scale is not available today. PHYSICAL EXAMINATION: GENERAL: Patient is awake, alert, oriented times three. Sitting up in the bed, in no distress. HEAD/NECK: Extraocular muscles intact. Pupils equal, round, and reactive to light. Mucous membranes are moist. Neck is supple. CARDIOVASCULAR: S1, S2. Regular rate. No edema of the bilateral lower extremities. RESPIRATORY: Chest clear to auscultation bilaterally. Bilaterally equal air entry. No rales or rhonchi. ABDOMEN: Soft, positive bowel sounds. Nontender. No organomegaly. MUSCULOSKELETAL: No clubbing or cyanosis. Pulses are 2+. 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 No focal deficit. Right sized craniotomy incision has healed now. LAB REVIEW: CBC showed a WBC 6.8, hemoglobin 9.9, platelets 300. BMP showed sodium 140, potassium 3.7, chloride 103, bicarbonate 29, BUN 16, creatinine 1.2, calcium 7.9, albumin 2.3. CURRENT INPATIENT MEDICATIONS: Patient's medications were all reviewed by me. There is no change in the medications today as compared with yesterday except that his Dificid course has completed. ASSESSMENT AND PLAN: 1. Acute kidney injury superimposed on chronic kidney disease. Renal function is stable and improved. Creatinine is 1.2 which is close to his baseline. 2. Hypokalemia. Potassium level is improved after improvement of his diarrhea. Potassium is 3.7 today. 3. Gout in the right wrist. His gout symptoms have improved. He was given prednisone for a short course. Continue current dose of Uloric 120 mg by mouth daily. 4. Anemia secondary to chronic kidney disease. Hemoglobin is 9.9 which is optimal at this point. 5. C Difficile colitis. Patient is status post Dificid, his diarrhea has improved now. Patient's renal function is back to his baseline. Nephrology service was peripherally to follow his labs only. Please call nephrology service for any help in the management of this patient during this hospitalization.
[2018-07-27 14:00] VITALS: BP 136/60
--- NOTE | 2018-07-27 14:01 | IPNPDOC ---
Date Seen The patient was seen on 07/27/18. Progress Note HPI: 68M pnh HTN and DM, left carotid artery stenosis s/p stenting, gout, CAD, ENEDINA, CKD3, recent GIB who initially presented to [facility] on 06/29/18 with reported seizures, arrived with a Arnav Coma Scale of 3, was given loading dose of Dilantin and intubated. CTH showed a right frontal mass so he was transferred to [facility] in [place], [place] for further work-up. At [place] MRI on 06-30-18 showed a 3cm by 3cm right frontal lobe lesion with a hemorrhagic component, possible neoplam or less likley transformation of an infarction. He was found to have leukocytosis which was thought to be from seizure activity and remained afebrile. He had significant hyponatremia, acute on chronic CKD and elevated blood sugars managed with insulin. He was evaluated by neurosurgery and had a resection of his right frontal mass on 07/04/18 after which he was maintained on a Decadron taper and continued on Dilantin for seizure prophylaxis. He was evaluated by therapy and noted to have significant impairment in his ADLs and gait, and was deemed medically appropriate for transfer to [facility] ARU on 07-09-18, as per Dr Young, with pathology pending from his recent tumor resection. Pt reports loose stools have improved, frequency decreasing and none so far today. denies abdominal pain, N/V. Appetite is better. Denies any fevers, chills, weakness, fatigue, STEPHENS, CP, palpitations. PE: GEN: 68yoM, appears stated age. Alert and oriented x 3. HEENT: Normocephalic, healing craniotomy scar. Sclera are nonicteric. Conjunctiva without injection. No facial asymmetry. Moist mucous membranes. CHEST: Regular rate and rhythm, +S1, +S2 LUNGS: Decreased BS but clear bilaterally. No wheezes, rales, or rhonchi appreciated. ABD: Round, soft, non-tender, non-distended. +Bowel sounds throughout. EXT: trace lower extremity edema appreciated. Rt hand edema improved, no erythema or TTP. SKIN: Benavides, dry, warm. No rashes. A&P: 1. Frontal cranial mass status post resection at [facility] in [place] on 07/05/2018. Mgmt as per ARU. PT/OT/ST as per ARU Pain control as per ARU DVT prophylaxis as per ARU, SQ Heparin. Outpt F/U with Neurosurgery. Continue on Decadron taper as per Neurosurgery. Continue on Dilantin seizure prophylaxis as per Neurosurgery. Dilantin dose adjusted as per attending to 175 Q8h, Dilantin level 07/26/18 10.8. Pt seen by Neurology. Outpt F/U planned. Seizure precautions. Slid OOB 07/14/18- CT head completed with no acute changes. Repeat CT 07/20/18 with no acute changes. 2. C diff. positive Afebrile. WBC 5.5 PO Vanco changed to Dificid 07/16/18. Dificid x 10d completed 07/25/18. Bacid 2 tab BID. HOLD Bowel care. HOLD PPI. Improving. 3. Hypokalemia. S/P po supplement . Monitor. 4. Hypomagnesemia. S/P mag run. Continue to monitor mag level. 5. Chronic kidney disease3. Nephrology following. SCr 1.30. trend improved. Diuretic on hold. S/P IVF as per Nephrology. 6. Gout. On Uloric. 7. Hypertension. Norvasc 10 mg daily, carvedilol 50mg mg BID. Hydralazine 25 mg Q6 with hold parameter. Monitor. 8. Coronary artery disease. ASA 9. Carotid stenosis, status post endarterectomy. 10. Congestive heart failure. Diuretic is on hold. Nephrology following. 10. Diabetes. Levemir d/cd 07/19/18, no further hypoglycemia. SSI Monitor 11. Benign prostatic hypertrophy (BPH). Flomax. 12. URI/Respiratory panel Rhinovirus. Resolved. Afebrile. CXR 07/14/18 NAD. Tylenol/Duoneb/Robitussin. Encourage I/S. Monitor. 13. Anemia. Normocytic. Likely related to chronic disease/CKD. hgb 9.1. Fe studies, B12, folate 07/14/18. Folate supplement added. PRBC x 2 units 07/21. Monitor. 14. UTI. E Coli pansensitive. UC 07/18/18 pansensitive E coli. UC 07/20 E coli Pt treated with Fosfomycin as per ID. BC x 2 negative. Appreciate ID assistance. 15. GI prophylaxis. HOLD PPI. Continue pepcid. 16. Rt hand edema. Improved. Possible IV infiltration. No erythema/warmth. VS, I&O, 24H, Fishbone Vital Signs/I&O Vital Signs Date Time Temp Pulse Resp B/P (MAP) Pulse Ox O2 Delivery O2 Flow Rate FiO2 07/27/18 12:00 126/58 07/27/18 07:53 74 07/27/18 06:10 98.0 18 97 07/21/18 05:40 Room Air I&O- Last 24 Hours up to 6 AM 07/27/18 05:59 Intake Total 1800 ml Output Total 1650 ml Balance 150 ml Laboratory Data 24H LABS Laboratory Tests 2 07/26/18 17:03: Bedside Glucose (Misc Panel) 111 07/26/18 20:37: Bedside Glucose (Misc Panel) 124H 07/27/18 06:45: Bedside Glucose (Misc Panel) 127H 07/27/18 06:59: Nucleated Red Blood Cells % (auto) 0.0, Anion Gap 7L, Glomerular Filtration Rate 58.6, Blood Urea Nitrogen 15, Creatinine 1.30, Sodium Level 139, Potassium Level 3.6, Chloride Level 103, Carbon Dioxide Level 29, Calcium Level 7.8L, Aspartate Amino Transf (AST/SGOT) 11, Alanine Aminotransferase (ALT/SGPT) 11L, Alkaline Phosphatase 145H, Total Bilirubin 0.2, Total Protein 6.1L, Albumin 2.1L, Magnesium Level 1.6L, Albumin/Globulin Ratio 0.53L 07/27/18 11:32: Bedside Glucose (Misc Panel) 158H CBC/BMP Laboratory Tests 07/27/18 06:59 Red Blood Count 3.19 L, Mean Corpuscular Volume 87.8, Mean Corpuscular Hemoglo bin 28.5, Mean Corpuscular Hemoglobin Concent 32.5, Red Cell Distribution Width 17.8 H, Calcium Level 7.8 L, Aspartate Amino Transf (AST/SGOT) 11, Alanine Aminotransferase (ALT/SGPT) 11 L, Alkaline Phosphatase 145 H, Total Bilirubin 0.2, Total Protein 6.1 L, Albumin 2.1 L Microbiology Microbiology 07/20/18 Blood Culture - Final, Complete NO GROWTH AFTER 5 DAYS 07/19/18 Blood Culture - Final, Complete NO GROWTH AFTER 5 DAYS 07/19/18 Stool Occult Blood (MAYCOL) - Final, Complete 07/20/18 Urine Culture - Final, Complete Escherichia Coli 07/18/18 Urine Culture - Final, Complete Escherichia Coli Saadia Campbell Jul 27, 2018 14:01
[2018-07-27 20:00] VITALS: BP 158/86
[2018-07-27] MEDS: TAMSULOSIN 0.4 MG CAP PO SCH (21:45)
[2018-07-27] MEDS: ACETAMINOPHEN 500 MG TAB PO SCH (21:46)
[2018-07-27] MEDS: **NOTE PATIENT COMMENT** MISC XX SCH (21:47)
[2018-07-27 22:00] VITALS: BP 158/86
[2018-07-27] MEDS: traZODone 25MG PER 1/2 TABLET PO PRN (23:05)
[2018-07-27] MEDS: ONDANSETRON 4 MG TAB (S0181) PO PRN (23:05)
[2018-07-28 05:06] VITALS: BP 158/84
[2018-07-28] MEDS: **hydrALAZINE** 50 MG TAB PO SCH ×4 (05:29→23:50)
[2018-07-28] MEDS: HEPARIN SOD (PORCINE) 5000 UNITS/ML VIAL SQ SCH (05:29)
[2018-07-28] MEDS: PHENYTOIN 50 MG CHEW TABLET PO SCH ×3 (05:30→22:37)
[2018-07-28] MEDS: ACETAMINOPHEN TAB 650MG DOSE (2X325MG) PO PRN (05:30)
[2018-07-28 06:52] LABS: HEMATOCRIT 26.4 % (42.0-52.0); HEMOGLOBIN 8.6 g/dl (13.5-17.5); MEAN CORPUSCULAR HEMOGLOBIN 28.1 pg (27.0-33.0); MEAN CORPUSCULAR HGB CONC 32.6 g/dl (32.0-36.5); MEAN CORPUSCULAR VOLUME 86.3 fl (80.0-96.0); PLATELET COUNT, AUTOMATED 248 10^3/uL (150-450); RED BLOOD COUNT 3.06 10^6/uL (4.30-6.10); WHITE BLOOD COUNT 5.4 10^3/uL (4.0-10.0)
[2018-07-28] MEDS: IPRATROPIUM 0.5MG/ALBUTEROL 2.5MG INH SOL UD 3ML (DUONEB)(J7620) NEB SCH ×2 (07:15→20:27)
[2018-07-28 07:26] LABS: ALT/SGPT 12 U/L (12-78); BILIRUBIN,TOTAL 0.3 MG/DL (0.2-1.0); BLOOD UREA NITROGEN 16 MG/DL (7-18); CALCIUM LEVEL 7.7 MG/DL (8.8-10.2); CARBON DIOXIDE LEVEL 28 MEQ/L (21-32); CHLORIDE LEVEL 105 MEQ/L (98-107); GLOMERULAR FILTRATION RATE > 60.0 (>49); GLUCOSE, FASTING 140 MG/DL (70-100); MAGNESIUM LEVEL 1.7 MG/DL (1.8-2.4); POTASSIUM SERUM 3.5 MEQ/L (3.5-5.1); SODIUM LEVEL 139 MEQ/L (136-145); TOTAL PROTEIN 5.9 GM/DL (6.4-8.2)
[2018-07-28] MEDS: LIDOCAINE 5% (LIDODERM) PATCH TD SCH (08:46)
[2018-07-28] MEDS: ONDANSETRON 4 MG TAB (S0181) PO PRN (08:47)
[2018-07-28] MEDS: amLODIPine 10 MG TAB PO SCH (08:47)
[2018-07-28] MEDS: GEMFIBROZIL 600 MG TAB PO SCH ×2 (08:47→22:35)
[2018-07-28] MEDS: FAMOTIDINE 20 MG TAB PO SCH ×2 (08:47→22:36)
[2018-07-28] MEDS: guaiFENesin 200 MG TAB PO SCH ×3 (08:47→22:35)
[2018-07-28] MEDS: FOLIC ACID 1 MG TAB PO SCH (08:47)
[2018-07-28] MEDS: FEBUXOSTAT 40 MG TABLET (ULORIC) PO SCH (08:48)
[2018-07-28] MEDS: LACTOBACILLUS ACIDOPHILUS CAP (BACID) PO SCH ×2 (08:48→18:23)
[2018-07-28] MEDS: ASPIRIN 81 MG ENTERIC TAB PO SCH (08:48)
[2018-07-28] MEDS: DIAPER RELIEF PASTE (DESITIN) 60GM TOP SCH ×2 (08:49→21:00)
[2018-07-28] MEDS: CALCITRIOL 0.25 MCG CAP (S0169) PO SCH (08:49)
[2018-07-28] MEDS: CARVedilol 12.5 MG TAB PO SCH ×2 (08:49→22:36)
--- NOTE | 2018-07-28 10:04 | IPNPDOC ---
PM&R Progress Note DATE OF SERVICE: Jul 27, 2018 Staff Cytotechnologist Progress Note Subjective: Patient seen in his room states he thinks his gout is back in his left foot and is wondering if his Uloric dose needs to be adjusted. He reports his right wrist pain and swelling is better. REVIEW OF SYSTEMS: The following is a completed review of systems and has been reviewed. Review of systems otherwise unremarkable. PAIN: Patient self reports bilateral chronic knee pain EYES: Negative for recent vision changes EARS, NOSE, & THROAT: dysphagia (resolved) denies rhinorrhea CARDIOVASCULAR: +sternal pain, otherwise no palpitations PULMONARY: Negative. Denies shortness of breath, cough resolved. GASTROINTESTINAL:+ diarrhea GENITOURINARY: Negative for dysuria or hematuria, + retention (improved) MUSCULOSKELETAL: bilateral knee OA vs gout NEUROLOGICAL: s/p right frontal lobe resection , seizures HEMATOLOGICAL: Negative SKIN: sacral ulcer PSYCHIATRIC: Unremarkable All other review of systems found to be negative. PHYSICAL EXAMINATION: VITAL SIGNS: Please see below. GENERAL: Pleasant and cooperative. No acute distress. HEENT: PERRL. Extraocular movements intact. Clear conjunctiva, left facial droop (eyebrow sparing) CARDIOVASCULAR: Regular rate and rhythm. No murmurs, rubs, or gallops +TTP sternal palpation LUNGS: Clear to auscultation bilaterally. No wheezes. No rhonchi ABDOMEN: Soft, nontender, nondistended. Positive bowel sounds. Normal active bowel sound NEUROLOGICAL: Alert and oriented times to self and place, not time Cranial nerves II through XII grossly intact. Sensation grossly intact able to follow 2-step commands, however unable to perform Luria, +Apraxia EXTREMITIES:5\5 strength bilateral upper extremities. >3/5 bilateral hip flexors and knee extensors, 5/5 bilateral ankle DF and EHL Bilateral knees warm to touch with effusion right wrist, non-tender to palpation Left mid-foot warm to touch and mild TTP SKIN: sacral ulcer, right frontal craniotonomy incision c/d/i ASSESSMENT:68-year-old M with past medical history of ENEDINA, HTN, CAD who presents status post right frontal mass resection with seizures. PLAN: 1. rehab: PTOT, RN SOCIAL WORK advance diet, assess for DME- significant apraxia, able to participate more in therapy, ambulating further with RW, however cognition impaired, continu RN SOCIAL WORK for cognitive tasks in OT for safe discharge to home 2. Neuro:s/p right frontal mass resection, pathology per negative however awaiting offical results results, Dilantin for seizures 125q8h, however levels low at 9.1, increased to 150 qh on 07/12/18 and on 07/19/18 8.6 will increase to 175q8h and recheck 07/26/18 - neuro consult recs appreciated, s/p Decadron taper, will consider transition to Depakote given his impaired renal function -will need outpatient neuro f/u 2-4 weeks from discharge to review scans from [facility] and consider carotid US, he is s/p left CEA performed in by Dr. Rosa and currently has right carotid artery stenosis -reschedule surgery follow-up until 08/05/18 at 9:[address] Tello, path results do not suggest malignant tissue 3. Cardio: pmh HTn and HLD, hx of CHF, diuretics on hold per renal recs- medicine consulted, increased beta-ronda and added hydralazine for elevated BPs-imrproving 4. Resp: ENEDINA non-compliant with CPAP, cough improved, recent diagnosis of Rhinovirus, off droplet precautions now 5. Endo: pmh DM continue home meds and adjust prn 6. Rheum: pmh gout, continue Uloric, s/p recent short dose of prednisone for right writs will consider another steroid dosing, patient encouraged to drink more water and avoid pepsi 7. DVT ppx: continue heparin, US of right UE negative for DVT 8. GI ppx: omeprazole, patient found to have +C diff , given persistent diarrhea on Vancomycin, switched to Difficid 200mg BID x 10 days which is complete- diarrhea resolved 9. : admission UA and Ucx negative monitor PVRs- repeat Ua and Ucx positive for E. Coli, ID consulted, s/p Fosfomycin, recs appreciated, renal consulted for retention and metabolic acidosis s/p Bicarb drips recs appreciated 10. Heme: patient with anemia of chronic disease, given 2 units prbc per renal r ecs on 07/21, concern for possible gout in right hand s/p short course of steroids per renal- recs appreciated 10. Pain: patient with headaches, Tylenol and Fiorcet prn 11. Dispo: 08/02/18, slowly progressing towards goals, will request more time to work on safer discharge to home where he will not have 12/01 supervision, spoke with and she would prefer 08/06/18 for discharge and plans to obtain security camera and be home with him for 10 days for vacation Allergies Coded Allergies: No Known Allergies (Verified , 03/30/18) Vital Signs Vital Signs Date Time Temp Pulse Resp B/P (MAP) Pulse Ox O2 Delivery O2 Flow Rate FiO2 07/28/18 08:47 75 158/84 07/28/18 05:06 97.1 18 98 Laboratory Data CBC/BMP Laboratory Tests 07/28/18 06:30 Red Blood Count 3.06 L, Mean Corpuscular Volume 86.3, Mean Corpuscular Hemoglobin 28.1, Mean Corpuscular Hemoglobin Concent 32.6, Red Cell Distribution Width 17.5 H, Calcium Level 7.7 L, Aspartate Amino Transf (AST/SGOT) 13, Alanine Aminotransferase (ALT/SGPT) 12, Alkaline Phosphatase 149 H, Total Bilirubin 0.3, Total Protein 5.9 L, Albumin 2.0 L Labs 24H Laboratory Tests 2 07/27/18 11:32: Bedside Glucose (Misc Panel) 158H 07/27/18 16:46: Bedside Glucose (Misc Panel) 106 07/28/18 06:30: Nucleated Red Blood Cells % (auto) 0.0, Anion Gap 6L, Glomerular Filtration Rate > 60.0, Blood Urea Nitrogen 16, Creatinine 1.20, Sodium Level 139, Potassium L evel 3.5, Chloride Level 105, Carbon Dioxide Level 28, Calcium Level 7.7L, Aspartate Amino Transf (AST/SGOT) 13, Alanine Aminotransferase (ALT/SGPT) 12, Alkaline Phosphatase 149H, Total Bilirubin 0.3, Total Protein 5.9L, Albumin 2.0L, Magnesium Level 1.7L, Albumin/Globulin Ratio 0.51L Microbiology Microbiology 07/20/18 Blood Culture - Final, Complete NO GROWTH AFTER 5 DAYS 07/19/18 Blood Culture - Final, Complete NO GROWTH AFTER 5 DAYS 07/19/18 Stool Occult Blood (MAYCOL) - Final, Complete 07/20/18 Urine Culture - Final, Complete Escherichia Coli 07/18/18 Urine Culture - Final, Complete Escherichia Coli Current Medications Current Medications Current Medications Acetaminophen (Tylenol Tab) 650 mg DAILY PRN PO fever Last administered on 2/6/19at 05:30; Start 07/09/18 at 21:00 Acetaminophen (Tylenol Tab) 1,000 mg QHS PO Last administered on 07/27/18 21:46; Start 07/26/18 at 21:00 Acetaminophen (Tylenol Tab) 1,000 mg TID PO Last administered on 07/26/18 16:34; Start 07/09/18 at 21:00; Stop 07/26/18 at 18:28; Status DC Acetaminophen/ Butalbital/ Caffeine (Fioricet) 1 ea Q6HP PRN PO HEADACHE Last administered on 07/12/18 12:58; Start 07/12/18 at 11:00 Albuterol/ Ipratropium (Duoneb (Ipr 0.5mg/Alb 2.5mg)) 3 ml BID NEB ; Start 07/14/18 at 21:00; Status UNV Albuterol/ Ipratropium (Duoneb (Ipr 0.5mg/Alb 2.5mg)) 3 ml RBID NEB Last administered on 07/28/18 07:15; Start 07/10/18 at 08:00 Amlodipine Besylate (Norvasc) 10 mg DAILY PO Last administered on 07/28/18 08:47; Start 07/10/18 at 09:00 Aspirin (Ecotrin) 81 mg DAILY PO Last administered on 07/28/18 08:48; Start 07/10/18 at 09:00 Bisacodyl (Dulcolax Suppository) 10 mg DAILYPRN PRN ID CONSTIPATION; Start 07/09/18 at 21:15; Stop 07/20/18 at 14:26; Status DC Calcitriol (Rocaltrol) 0.25 mcg DAILY PO Last administered on 07/28/18 08:49; Start 07/10/18 at 09:00 Calcium Carbonate (Tums) 500 mg DAILYPRN PRN PO INDIGESTION Last administered on 07/20/18 01:22; Start 07/19/18 at 20:00 Carvedilol (COReg) 12.5 mg BID PO Last administered on 07/14/18 09:03; Start 07/09/18 at 21:00; Stop 07/14/18 at 11:08; Status DC Carvedilol (COReg) 25 mg BID PO Last administered on 07/19/18 08:40; Start 07/14/18 at 21:00; Stop 07/19/18 at 10:30; Status DC Carvedilol (COReg) 37.5 mg BID PO Last administered on 07/25/18 08:48; Start 07/19/18 at 21:00; Stop 07/25/18 at 18:46; Status DC Carvedilol (COReg) 50 mg BID PO Last administered on 07/28/18 08:49; Start 07/25/18 at 21:00 Cefepime HCl 1 gm/ Dextrose 50 ml @ 100 mls/hr Q24H IV Last administered on 07/20/18at 15:15; Start 07/20/18 at 13:00; Stop 07/20/18 at 19:38; Status DC Cod Liver Oil/ Zinc Oxide (Desitin) apply to sacrum BID TOP Last administered on 07/28/18 08:49; Start 07/10/18 at 09:00 Dexamethasone (Decadron) 2 mg DAILY PO Last administered on 07/20/18at 10:34; Start 07/16/18 at 09:00; Stop 07/21/18 at 08:59; Status DC Dexamethasone (Decadron) 2 mg DAILY PO ; Start 07/18/18 at 09:00; Stop 07/18/18 at 09:00; Status DC Dexamethasone (Decadron) 2 mg Q12H PO Last administered on 07/15/18at 21:09; Start 07/13/18 at 21:00; Stop 07/15/18 at 21:55; Status DC Dexamethasone (Decadron) 4 mg Q12H PO Last administered on 07/13/18at 08:35; Start 07/09/18 at 21:00; Stop 07/13/18 at 20:59; Status DC Dextrose (Dextrose 50%) 25 ml ASDIRECTED PRN IV SEE LABEL COMMENTS; Start 07/09/18 at 21:00 Famotidine (Pepcid) 10 mg BID PO Last administered on 07/28/18 08:47; Start 07/12/18 at 15:00 Febuxostat (Uloric) 120 mg DAILY PO Last administered on 07/28/18 08:48; Start 07/10/18 at 09:00 Fidaxomicin (Dificid) 200 mg BID PO Last administered on 07/25/18 21:55; Start 07/16/18 at 11:45; Stop 07/25/18 at 21:01; Status DC Folic Acid (Folic Acid) 1 mg DAILY PO Last administered on 07/28/18 08:47; Start 07/16/18 at 09:00 Fosfomycin Tromethamine (Monurol) 3 gm Q2D PO Last administered on 07/24/18 08:52; Start 07/22/18 at 09:00; Stop 07/24/18 at 12:00; Status DC Gemfibrozil (Lopid) 600 mg BID PO Last administered on 07/28/18 08:47; Start 07/09/18 at 21:00 Glucagon (Glucagon) 1 mg ASDIRECTED PRN SC SEE LABEL COMMENTS; Start 07/09/18 at 21:00 Glucose (Glucose) 16 GM ASDIRECTED PRN PO SEE LABEL COMMENTS; Start 07/09/18 at 21:00 Guaifenesin (Robitussin Tab) 400 mg TID PO Last administered on 07/28/18 08:47; Start 07/10/18 at 09:00 Guaifenesin (Robitussin Tab) 400 mg TID PO ; Start 07/14/18 at 21:00; Stop 06/23 09/07 at 21:00; Status DC Heparin Sodium (Porcine) (Heparin) 5,000 units Q8H SQ Last administered on 07/28/18 05:29; Start 07/09/18 at 22:00 Home Med (Med Rec Complete!) ASDIRECTED XX ; Start 07/09/18 at 23:00; Stop 07/09/18 at 23:00; Status DC Hydralazine HCl (Apresoline) 25 mg Q6H PO Last administered on 07/23/18 05:52; Start 07/20/18 at 12:00; Stop 07/23/18 at 11:52; Status DC Hydralazine HCl (Apresoline) 50 mg Q6H PO Last administered on 07/28/18 05:29; Start 07/23/18 at 12:00 Insulin Detemir (Levemir Insulin) 10 units QHS SC Last administered on 07/16/18at 21:49; Start 07/15/18 at 21:00; Stop 07/19/18 at 13:01; Status DC Insulin Detemir (Levemir Insulin) 20 units QHS SC Last administered on 07/14/18at 22:04; Start 07/09/18 at 21:00; Stop 07/15/18 at 14:20; Status DC Insulin Human Lispro (HumaLOG INSULIN) SEE PROTOCOL TABLE AC SC Last administered on 07/27/18at 07:52; Start 07/10/18 at 07:30; Stop 07/27/18 at 11:01; Status DC Lactobacillus Acidophilus (Bacid) 1 ea BIDWM PO Last administered on 07/14/18at 08:59; Start 07/11/18 at 08:00; Stop 07/14/18 at 13:09; Status DC Lactobacillus Acidophilus (Bacid) 2 ea BIDWM PO Last administered on 07/28/18at 08:48; Start 07/14/18 at 18:00 Lidocaine (Lidoderm Patch) 1 patch DAILY TD Last administered on 07/28/18at 08:46; Start 07/10/18 at 09:00 Lorazepam (Ativan) 2 mg Q6H PRN IV SEIZURES; Start 07/10/18 at 02:30; Stop 07/22/18 at 12:01; Status DC Magnesium Hydroxide (Milk Of Magnesia) 30 ml DAILYPRN PRN PO CONSTIPATION; Start 07/09/18 at 21:15; Stop 07/20/18 at 14:26; Status DC Metronidazole (Flagyl) 500 mg Q8H PO Last administered on 07/11/18at 05:01; Start 07/11/18 at 04:00; Stop 07/11/18 at 07:12; Status DC Miscellaneous (Unresolved Clarification Entry) SEE LABEL COMMENTS DAILY XX ; Start 07/21/18 at 09:00; Stop 07/22/18 at 07:12; Status DC Miscellaneous (Unresolved Clarification Entry) SEE LABEL COMMENTS DAILY XX ; Start 07/22/18 at 09:00; Stop 07/23/18 at 04:46; Status DC Non-Formulary Medication ( See Comment Field Below ) REMOVE LIDODERM PATCH DAILY@21 XX Last administered on 07/27/18at 21:47; Start 07/09/18 at 21:00 Omeprazole (PriLOSEC) 40 mg QHS PO Last administered on 07/11/18at 22:26; Start 07/09/18 at 21:00; Stop 07/12/18 at 14:39; Status DC Ondansetron HCl (Zofran) 4 mg Q6HP PRN PO NAUSEA Last administered on 07/28/18at 08:47; Start 07/09/18 at 21:15 Phenytoin (Dilantin Chewable) 125 mg Q8H PO Last administered on 07/12/18at 05:49; Start 07/09/18 at 22:00; Stop 07/12/18 at 10:30; Status DC Phenytoin (Dilantin Chewable) 150 mg Q8H PO Last administered on 07/19/18at 13:01; Start 07/12/18 at 14:00; Stop 07/19/18 at 15:37; Status DC Phenytoin (Dilantin Chewable) 175 mg Q8H PO Last administered on 07/28/18at 05:30; Start 07/19/18 at 22:00 Potassium Chloride (Micro-K Extencaps) 20 meq DAILY PO Last administered on 07/17/18at 10:19; Start 07/12/18 at 09:00; Stop 07/17/18 at 11:48; Status DC Prednisone (Deltasone) 5 mg DAILY PO ; Start 08/09/18 at 09:00; Status UNV Prednisone (Deltasone) 10 mg BID PO ; Start 07/28/18 at 21:00; Status UNV Prednisone (Deltasone) 10 mg DAILY PO ; Start 08/06/18 at 09:00; Status UNV Prednisone (Deltasone) 15 mg BID PO ; Start 07/28/18 at 21:00; Status UNV Prednisone (Deltasone) 20 mg BID PO Last administered on 07/25/18at 08:47; Start 07/23/18 at 21:00; Stop 07/25/18 at 10:00; Status DC Prednisone (Deltasone) 20 mg BID PO ; Start 07/28/18 at 21:00; Status UNV Senna/Docusate Sodium (Senokot S) 1 tab BID PO Last administered on 07/11/18at 22:23; Start 07/10/18 at 09:00; Stop 07/12/18 at 14:39; Status DC Sodium Bicarbonate 150 meq/Sterile Water 1,150 ml @ 60 mls/hr [id number] IV Last administered on 07/22/18at 17:42; Start 07/20/18 at 09:00; Stop 07/23/18 at 04:19; Status DC Sodium Bicarbonate 150 meq/Sterile Water 1,150 ml @ 60 mls/hr [id number] IV ; Start 07/23/18 at 08:00; Stop 07/23/18 at 08:00; Status DC Tamsulosin HCl (Flomax) 0.4 mg QHS PO Last administered on 07/27/18at 21:45; Start 07/09/18 at 21:00 Torsemide (Demadex) 50 mg BID@09,17 PO ; Start 07/10/18 at 09:00; Stop 07/10/18 at 09:24; Status DC Trazodone HCl (Desyrel) 25 mg QHSP PRN PO INSOMNIA Last administered on 07/27/18at 23:05; Start 07/09/18 at 21:00 Vancomycin HCl (First-Vancomycin 50(Firvanq)- 250mg/5ml) 125 mg Q6H PO Last administered on 07/16/18at 05:44; Start 07/11/18 at 06:00; Stop 07/16/18 at 11:37; Status DC Zinc Oxide (Boudreauxs Butt Paste) sacrum BID TOP ; Start 07/10/18 at 09:00; Stop 07/10/18 at 13:02; Status DC ESTRELLITA STANTON MD Jul 28, 2018 10:04
--- NOTE | 2018-07-28 10:06 | IPNPDOC ---
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 He reported feeling nauseous and was encouraged to eat breakfast. REVIEW OF SYSTEMS: The following is a completed review of systems and has been reviewed. Review of systems otherwise unremarkable. PAIN: Patient self reports bilateral chronic knee pain EYES: Negative for recent vision changes EARS, NOSE, & THROAT: dysphagia (resolved) denies rhinorrhea CARDIOVASCULAR: +sternal pain, otherwise no palpitations PULMONARY: Negative. Denies shortness of breath, cough resolved. GASTROINTESTINAL:+ diarrhea GENITOURINARY: Negative for dysuria or hematuria, + retention (improved) MUSCULOSKELETAL: bilateral knee OA vs gout NEUROLOGICAL: s/p right frontal lobe resection , seizures HEMATOLOGICAL: Negative SKIN: sacral ulcer PSYCHIATRIC: Unremarkable All other review of systems found to be negative. PHYSICAL EXAMINATION: VITAL SIGNS: Please see below. GENERAL: Pleasant and cooperative. No acute distress. HEENT: PERRL. Extraocular movements intact. Clear conjunctiva, left facial droop (eyebrow sparing) CARDIOVASCULAR: Regular rate and rhythm. No murmurs, rubs, or gallops +TTP arnold rnal palpation LUNGS: Clear to auscultation bilaterally. No wheezes. No rhonchi ABDOMEN: Soft, nontender, nondistended. Positive bowel sounds. Normal active bowel sound NEUROLOGICAL: Alert and oriented times to self and place, not time Cranial nerves II through XII grossly intact. Sensation grossly intact able to follow 2-step commands, however unable to perform Luria, +Apraxia EXTREMITIES:5\5 strength bilateral upper extremities. >3/5 bilateral hip flexors and knee extensors, 5/5 bilateral ankle DF and EHL Bilateral knees warm to touch with effusion right wrist, non-tender to palpation Left mid-foot warm to touch and mild TTP SKIN: sacral ulcer, right frontal craniotonomy incision c/d/i ASSESSMENT:68-year-old M with past medical history of ENEDINA, HTN, CAD who presents status post right frontal mass resection with seizures. PLAN: 1. rehab: PTOT, OPERATIONAL RISK CONSULTANT advance diet, assess for DME- significant apraxia, able to participate more in therapy, ambulating further with RW, however cognition impaired, continu OPERATIONAL RISK CONSULTANT for cognitive tasks in OT for safe discharge to home 2. Neuro:s/p right frontal mass resection, pathology per negative however awaiting offical results results, Dilantin for seizures 125q8h, however levels low at 9.1, increased to 150 qh on 07/12/18 and on 07/19/18 8.6 will increase to 175q8h and recheck 07/26/18 - neuro consult recs appreciated, s/p Decadron taper, will consider transition to Depakote given his impaired renal function -will need outpatient neuro f/u 2-4 weeks from discharge to review scans from [facility] and consider carotid US, he is s/p left CEA performed in by Dr. Rosa and currently has right carotid artery stenosis -reschedule surgery follow-up until 08/05/18 at 9:[address] Tello, path results do not suggest malignant tissue 3. Cardio: pmh HTn and HLD, hx of CHF, diuretics on hold per renal recs- medicine consulted, increased beta-ronda and added hydralazine for elevated BPs-imrproving 4. Resp: ENEDINA non-compliant with CPAP, cough improved, recent diagnosis of Rhinovirus, off droplet precautions now 5. Endo: pmh DM continue home meds and adjust prn 6. Rheum: pmh gout, continue Uloric, s/p recent short dose of prednisone for rig ht writs will consider another steroid dosing, patient encouraged to drink more water and avoid pepsi, will start prednisone taper for left foot 7. DVT ppx: continue heparin, US of right UE negative for DVT 8. GI ppx: omeprazole, patient found to have +C diff , given persistent diarrhea on Vancomycin, switched to Difficid 200mg BID x 10 days which is complete- diarrhea resolved 9. : admission UA and Ucx negative monitor PVRs- repeat Ua and Ucx positive for E. Coli, ID consulted, s/p Fosfomycin, recs appreciated, renal consulted for retention and metabolic acidosis s/p Bicarb drips recs appr eciated 10. Heme: patient with anemia of chronic disease, given 2 units prbc per renal recs on 07/21, 10. Pain: patient with headaches, Tylenol and Fiorcet prn 11. Dispo: 08/02/18, slowly progressing towards goals, will request more time to work on safer discharge to home where he will not have 24/7 supervision, spoke with and she would prefer 08/06/18 for discharge and plans to obtain security camera and be home with him for 10 days for vacation Allergies Coded Allergies: No Known Allergies (Verified , 03/30/18) Vital Signs Vital Signs Date Time Temp Pulse Resp B/P (MAP) Pulse Ox O2 Delivery O2 Flow Rate FiO2 07/28/18 08:47 75 158/84 07/28/18 05:06 97.1 18 98 Laboratory Data CBC/BMP Laboratory Tests 07/28/18 06:30 Red Blood Count 3.06 L, Mean Corpuscular Volume 86.3, Mean Corpuscular Hemoglobin 28.1, Mean Corpuscular Hemoglobin Concent 32.6, Red Cell Distribution Width 17.5 H, Calcium Level 7.7 L, Aspartate Amino Transf (AST/SGOT) 13, Alanine Aminotransferase (ALT/SGPT) 12, Alkaline Phosphatase 149 H, Total Bilirubin 0.3, Total Protein 5.9 L, Albumin 2.0 L Labs 24H Laboratory Tests 2 07/27/18 11:32: Bedside Glucose (Misc Panel) 158H 07/27/18 16:46: Bedside Glucose (Misc Panel) 106 07/28/18 06:30: Nucleated Red Blood Cells % (auto) 0.0, Anion Gap 6L, Glomerular Filtration Rate > 60.0, Blood Urea Nitrogen 16, Creatinine 1.20, Sodium Level 139, Potassium Level 3.5, Chloride Level 105, Carbon Dioxide Level 28, Calcium Level 7.7L, Aspartate Amino Transf (AST/SGOT) 13, Alanine Aminotransferase (ALT/SGPT) 12, Alkaline Phosphatase 149H, Total Bilirubin 0.3, Total Protein 5.9L, Albumin 2.0L, Magnesium Level 1.7L, Albumin/Globulin Ratio 0.51L Microbiology Microbiology 07/20/18 Blood Culture - Final, Complete NO GROWTH AFTER 5 DAYS 07/19/18 Blood Culture - Final, Complete NO GROWTH AFTER 5 DAYS 07/19/18 Stool Occult Blood (MAYCOL) - Final, Complete 07/20/18 Urine Culture - Final, Complete Escherichia Coli 07/18/18 Urine Culture - Final, Complete Escherichia Coli Current Medications Current Medications Current Medications Acetaminophen (Tylenol Tab) 650 mg DAILY PRN PO fever Last administered on 07/28/18at 05:30; Start 07/09/18 at 21:00 Acetaminophen (Tylenol Tab) 1,000 mg QHS PO Last administered on 07/27/18 21:46; Start 07/26/18 at 21:00 Acetaminophen (Tylenol Tab) 1,000 mg TID PO Last administered on 07/26/18 1 6:34; Start 07/09/18 at 21:00; Stop 07/26/18 at 18:28; Status DC Acetaminophen/ Butalbital/ Caffeine (Fioricet) 1 ea Q6HP PRN PO HEADACHE Last administered on 07/12/18 12:58; Start 07/12/18 at 11:00 Albuterol/ Ipratropium (Duoneb (Ipr 0.5mg/Alb 2.5mg)) 3 ml BID NEB ; Start 07/14/18 at 21:00; Status UNV Albuterol/ Ipratropium (Duoneb (Ipr 0.5mg/Alb 2.5mg)) 3 ml RBID NEB Last administered on 07/28/18 07:15; Start 07/10/18 at 08:00 Amlodipine Besylate (Norvasc) 10 mg DAILY PO Last administered on 07/28/18 08:47; Start 07/10/18 at 09:00 Aspirin (Ecotrin) 81 mg DAILY PO Last administered on 07/28/18 08:48; Start 07/10/18 at 09:00 Bisacodyl (Dulcolax Suppository) 10 mg DAILYPRN PRN NV CONSTIPATION; Start 07/09/18 at 21:15; Stop 07/20/18 at 14:26; Status DC Calcitriol (Rocaltrol) 0.25 mcg DAILY PO Last administered on 07/28/18 08:49; Start 07/10/18 at 09:00 Calcium Carbonate (Tums) 500 mg DAILYPRN PRN PO INDIGESTION Last administered on 07/20/18 01:22; Start 07/19/18 at 20:00 Carvedilol (COReg) 12.5 mg BID PO Last administered on 07/14/18 09:03; Start 07/09/18 at 21:00; Stop 07/14/18 at 11:08; Status DC Carvedilol (COReg) 25 mg BID PO Last administered on 07/19/18 08:40; Start 07/14/18 at 21:00; Stop 07/19/18 at 10:30; Status DC Carvedilol (COReg) 37.5 mg BID PO Last administered on 07/25/18 08:48; Start 07/19/18 at 21:00; Stop 07/25/18 at 18:46; Status DC Carvedilol (COReg) 50 mg BID PO Last administered on 07/28/18 08:49; Start 07/25/18 at 21:00 Cefepime HCl 1 gm/ Dextrose 50 ml @ 100 mls/hr Q24H IV Last administered on 07/20/18 15:15; Start 07/20/18 at 13:00; Stop 07/20/18 at 19:38; Status DC Cod Liver Oil/ Zinc Oxide (Desitin) apply to sacrum BID TOP Last administered on 07/28/18 08:49; Start 07/10/18 at 09:00 Dexamethasone (Decadron) 2 mg DAILY PO Last administered on 07/20/18 10:34; Start 07/16/18 at 09:00; Stop 07/21/18 at 08:59; Status DC Dexamethasone (Decadron) 2 mg DAILY PO ; Start 07/18/18 at 09:00; Stop 07/18/18 at 09:00; Status DC Dexamethasone (Decadron) 2 mg Q12H PO Last administered on 07/15/18 21:09; Start 07/13/18 at 21:00; Stop 07/15/18 at 21:55; Status DC Dexamethasone (Decadron) 4 mg Q12H PO Last administered on 07/13/18 08:35; Start 07/09/18 at 21:00; Stop 07/13/18 at 20:59; Status DC Dextrose (Dextrose 50%) 25 ml ASDIRECTED PRN IV SEE LABEL COMMENTS; Start 07/09/18 at 21:00 Famotidine (Pepcid) 10 mg BID PO Last administered on 07/28/18 08:47; Start 07/12/18 at 15:00 Febuxostat (Uloric) 120 mg DAILY PO Last administered on 07/28/18 08:48; Start 07/10/18 at 09:00 Fidaxomicin (Dificid) 200 mg BID PO Last administered on 07/25/18 21:55; Start 07/16/18 at 11:45; Stop 07/25/18 at 21:01; Status DC Folic Acid (Folic Acid) 1 mg DAILY PO Last administered on 07/28/18 08:47; Start 07/16/18 at 09:00 Fosfomycin Tromethamine (Monurol) 3 gm Q2D PO Last administered on 07/24/18 08:52; Start 07/22/18 at 09:00; Stop 07/24/18 at 12:00; Status DC Gemfibrozil (Lopid) 600 mg BID PO Last administered on 07/28/18 08:47; Start 07/09/18 at 21:00 Glucagon (Glucagon) 1 mg ASDIRECTED PRN SC SEE LABEL COMMENTS; Start 07/09/18 at 21:00 Glucose (Glucose) 16 GM ASDIRECTED PRN PO SEE LABEL COMMENTS; Start 07/09/18 at 21:00 Guaifenesin (Robitussin Tab) 400 mg TID PO Last administered on 07/28/18 08:47; Start 07/10/18 at 09:00 Guaifenesin (Robitussin Tab) 400 mg TID PO ; Start 07/14/18 at 21:00; Stop 07/14/18 at 21:00; Status DC Heparin Sodium (Porcine) (Heparin) 5,000 units Q8H SQ Last administered on 07/28/18 05:29; Start 07/09/18 at 22:00 Home Med (Med Rec Complete!) ASDIRECTED XX ; Start 07/09/18 at 23:00; Stop 07/09/18 at 23:00; Status DC Hydralazine HCl (Apresoline) 25 mg Q6H PO Last administered on 07/23/18 05:52; Start 07/20/18 at 12:00; Stop 07/23/18 at 11:52; Status DC Hydralazine HCl (Apresoline) 50 mg Q6H PO Last administered on 07/28/18 05:29; Start 07/23/18 at 12:00 Insulin Detemir (Levemir Insulin) 10 units QHS SC Last administered on 07/16/18at 21:49; Start 07/15/18 at 21:00; Stop 07/19/18 at 13:01; Status DC Insulin Detemir (Levemir Insulin) 20 units QHS SC Last administered on 07/14/18at 22:04; Start 07/09/18 at 21:00; Stop 07/15/18 at 14:20; Status DC Insulin Human Lispro (HumaLOG INSULIN) SEE PROTOCOL TABLE AC SC Last administered on 07/27/18 07:52; Start 07/10/18 at 07:30; Stop 07/27/18 at 11:01; Status DC Lactobacillus Acidophilus (Bacid) 1 ea BIDWM PO Last administered on 07/14/18at 08:59; Start 07/11/18 at 08:00; Stop 07/14/18 at 13:09; Status DC Lactobacillus Acidophilus (Bacid) 2 ea BIDWM PO Last administered on 07/28/18 08:48; Start 07/14/18 at 18:00 Lidocaine (Lidoderm Patch) 1 patch DAILY TD Last administered on 07/28/18 08:46; Start 07/10/18 at 09:00 Lorazepam (Ativan) 2 mg Q6H PRN IV SEIZURES; Start 07/10/18 at 02:30; Stop 07/22/18 at 12:01; Status DC Magnesium Hydroxide (Milk Of Magnesia) 30 ml DAILYPRN PRN PO CONSTIPATION; Start 07/09/18 at 21:15; Stop 07/20/18 at 14:26; Status DC Metronidazole (Flagyl) 500 mg Q8H PO Last administered on 07/11/18at 05:01; Start 07/11/18 at 04:00; Stop 07/11/18 at 07:12; Status DC Miscellaneous (Unresolved Clarification Entry) SEE LABEL COMMENTS DAILY XX ; Start 07/21/18 at 09:00; Stop 07/22/18 at 07:12; Status DC Miscellaneous (Unresolved Clarification Entry) SEE LABEL COMMENTS DAILY XX ; Start 07/22/18 at 09:00; Stop 07/23/18 at 04:46; Status DC Non-Formulary Medication ( See Comment Field Below ) REMOVE LIDODERM PATCH DAILY@21 XX Last administered on 07/27/18at 21:47; Start 07/09/18 at 21:00 Omeprazole (PriLOSEC) 40 mg QHS PO Last administered on 07/11/18at 22:26; Start 07/09/18 at 21:00; Stop 07/12/18 at 14:39; Status DC Ondansetron HCl (Zofran) 4 mg Q6HP PRN PO NAUSEA Last administered on 07/28/18at 08:47; Start 07/09/18 at 21:15 Phenytoin (Dilantin Chewable) 125 mg Q8H PO Last administered on 07/12/18at 05:49; Start 07/09/18 at 22:00; Stop 07/12/18 at 10:30; Status DC Phenytoin (Dilantin Chewable) 150 mg Q8H PO Last administered on 07/19/18at 13:01; Start 07/12/18 at 14:00; Stop 07/19/18 at 15:37; Status DC Phenytoin (Dilantin Chewable) 175 mg Q8H PO Last administered on 07/28/18at 05:30; Start 07/19/18 at 22:00 Potassium Chloride (Micro-K Extencaps) 20 meq DAILY PO Last administered on 07/17/18at 10:19; Start 07/12/18 at 09:00; Stop 07/17/18 at 11:48; Status DC Prednisone (Deltasone) 5 mg DAILY PO ; Start 08/09/18 at 09:00; Status UNV Prednisone (Deltasone) 10 mg BID PO ; Start 07/28/18 at 21:00; Status UNV Prednisone (Deltasone) 10 mg DAILY PO ; Start 08/06/18 at 09:00; Status UNV Prednisone (Deltasone) 15 mg BID PO ; Start 07/28/18 at 21:00; Status UNV Prednisone (Deltasone) 20 mg BID PO Last administered on 07/25/18at 08:47; Start 07/23/18 at 21:00; Stop 07/25/18 at 10:00; Status DC Prednisone (Deltasone) 20 mg BID PO ; Start 07/28/18 at 21:00; Status UNV Senna/Docusate Sodium (Senokot S) 1 tab BID PO Last administered on 07/11/18at 22:23; Start 07/10/18 at 09:00; Stop 07/12/18 at 14:39; Status DC Sodium Bicarbonate 150 meq/Sterile Water 1,150 ml @ 60 mls/hr [id number] IV Last administered on 07/22/18at 17:42; Start 07/20/18 at 09:00; Stop 07/23/18 at 04:19; Status DC Sodium Bicarbonate 150 meq/Sterile Water 1,150 ml @ 60 mls/hr [id number] IV ; S tart 07/23/18 at 08:00; Stop 07/23/18 at 08:00; Status DC Tamsulosin HCl (Flomax) 0.4 mg QHS PO Last administered on 07/27/18at 21:45; Start 07/09/18 at 21:00 Torsemide (Demadex) 50 mg BID@09,17 PO ; Start 07/10/18 at 09:00; Stop 07/10/18 at 09:24; Status DC Trazodone HCl (Desyrel) 25 mg QHSP PRN PO INSOMNIA Last administered on 07/27/18at 23:05; Start 07/09/18 at 21:00 Vancomycin HCl (First-Vancomycin 50(Firvanq)- 250mg/5ml) 125 mg Q6H PO Last administered on 07/16/18at 05:44; Start 07/11/18 at 06:00; Stop 07/16/18 at 11:37; Status DC Zinc Oxide (Boudreauxs Butt Paste) sacrum BID TOP ; Start 07/10/18 at 09:00; Stop 07/10/18 at 13:02; Status DC ESTRELLITA STANTON MD Jul 28, 2018 10:06
[2018-07-28] MEDS: TORSEMIDE 20 MG TAB PO SCH (12:30)
[2018-07-28] MEDS: predniSONE 20 MG TAB PO SCH ×2 (13:03→22:36)
[2018-07-28 14:00] VITALS: BP 122/64
--- NOTE | 2018-07-28 14:59 | IPNPDOC ---
Date Seen The patient was seen on 07/28/18. Progress Note HPI: 68M pnh HTN and DM, left carotid artery stenosis s/p stenting, gout, CAD, ENEDINA, CKD3, recent GIB who initially presented to [facility] on 06/29/18 with reported seizures, arrived with a Arnav Coma Scale of 3, was given loading dose of Dilantin and intubated. CTH showed a right frontal mass so he was transferred to [facility] in [place], [place] for further work-up. At [place] MRI on 06-30-18 showed a 3cm by 3cm right frontal lobe lesion with a hemorrhagic component, possible neoplam or less likley transformation of an infarction. He was found to have leukocytosis which was thought to be from seizure activity and remained afebrile. He had significant hyponatremia, acute on chronic CKD and elevated blood sugars managed with insulin. He was evaluated by neurosurgery and had a resection of his right frontal mass on 07/04/18 after which he was maintained on a Decadron taper and continued on Dilantin for seizure prophylaxis. He was evaluated by therapy and noted to have significant impairment in his ADLs and gait, and was deemed medically appropriate for transfer to [facility] ARU on 07-09-18, as per Dr Young, with pathology pending from his recent tumor resection. Pt reports reports feeling much better overall with resolution of loose stools and reports none yesterday or today. His dtr has been bringing in some foods that he likes and he has been eating and drinking better than he had been. Denies abdominal pain, N/V. Denies any fevers, chills, weakness, fatigue, STEPHENS, CP, palpitations. PE: GEN: 68yoM, appears stated age. Alert and oriented x 3. HEENT: Normocephalic, healing craniotomy scar. Sclera are nonicteric. Conjunctiva without injection. No facial asymmetry. Moist mucous membranes. CHEST: Regular rate and rhythm, +S1, +S2 LUNGS: CTA. No wheezes, rales, or rhonchi appreciated. ABD: Round, soft, non-tender, non-distended. +Bowel sounds throughout. EXT: 1mmlower extremity edema appreciated. SKIN: Cherry, dry, warm. No rashes. A&P: 1. Frontal cranial mass status post resection at [facility] in [place] on 07/05/2018. Mgmt as per ARU. PT/OT/ST as per ARU Pain control as per ARU DVT prophylaxis as per ARU, SQ Heparin. Outpt F/U with Neurosurgery. Continue on Decadron taper as per Neurosurgery. Continue on Dilantin seizure prophylaxis as per Neurosurgery. Dilantin dose adjusted as per attending to 175 Q8h, Dilantin level 07/26/18 10.8. Pt seen by Neurology. Outpt F/U planned. Seizure precautions. Slid OOB 07/14/18- CT head completed with no acute changes. Repeat CT 07/20/18 with no acute changes. 2. C diff. positive Afebrile. WBC 5.5 PO Vanco changed to Dificid 07/16/18. Dificid x 10d completed 07/25/18. Bacid 2 tab BID. HOLD Bowel care. HOLD PPI. Improving. 3. Hypokalemia. S/P po supplement . Monitor. 4. Hypomagnesemia. S/P mag run. Continue to monitor mag level. 5. Chronic kidney disease3. Nephrology following. Demadex 20 mg daily restarted today. Monitor. 6. Gout. On Uloric. 7. Hypertension. Norvasc 10 mg daily, carvedilol 50mg mg BID. Hydralazine 25 mg Q6 with hold parameter. Monitor. 8. Coronary artery disease. ASA 9. Carotid stenosis, status post endarterectomy. 10. Congestive heart failure. Pt is noted to have increased LE edema, Demadex is restarted today as per Nephrology. Nephrology following. 10. Diabetes. Levemir d/cd 07/19/18, no further hypoglycemia. SSI Monitor 11. Benign prostatic hypertrophy (BPH). Flomax. 13. Anemia. Normocytic. Likely related to chronic disease/CKD. hgb 8.6. Fe studies, B12, folate 07/14/18. Folate supplement added. PRBC x 2 units 07/21. Monitor need for transfusion. 14. UTI. E Coli pansensitive. UC 07/18/18 pansensitive E coli. 07/20 E coli Pt treated with Fosfomycin as per ID. BC x 2 negative. Appreciate ID assistance. 15. GI prophylaxis. HOLD PPI. Continue pepcid. VS, I&O, 24H, Fishbone Vital Signs/I&O Vital Signs Date Time Temp Pulse Resp B/P (MAP) Pulse Ox O2 Delivery O2 Flow Rate FiO2 07/28/18 12:31 146/71 07/28/18 08:47 75 07/28/18 05:06 97.1 18 98 I&O- Last 24 Hours up to 6 AM0 07/28/18 06:00 Intake Total 1350 ml Output Total 2025 ml Balance -675 ml Laboratory Data 24H LABS Laboratory Tests 2 07/27/18 16:46: Bedside Glucose (Misc Panel) 106 07/28/18 06:30: Nucleated Red Blood Cells % (auto) 0.0, Anion Gap 6L, Glomerular Filtration Rate > 60.0, Blood Urea Nitrogen 16, Creatinine 1.20, Sodium Level 139, Potassium Level 3.5, Chloride Level 105, Carbon Dioxide Level 28, Calcium Level 7.7L, Aspartate Amino Transf (AST/SGOT) 13, Alanine Aminotransferase (ALT/SGPT) 12, Alkaline Phosphatase 149H, Total Bilirubin 0.3, Total Protein 5.9L, Albumin 2.0L, Magnesium Level 1.7L, Albumin/Globulin Ratio 0.51L CBC/BMP Laboratory Tests 07/28/18 06:30 Red Blood Count 3.06 L, Mean Corpuscular Volume 86.3, Mean Corpuscular Hemoglobin 28.1, Mean Corpuscular Hemoglobin Concent 32.6, Red Cell Distribution Width 17.5 H, Calcium Level 7.7 L, Aspartate Amino Transf (AST/SGOT) 13, Alanine Aminotransferase (ALT/SGPT) 12, Alkaline Phosphatase 149 H, Total Bilirubin 0.3, Total Protein 5.9 L, Albumin 2.0 L Microbiology Microbiology 07/20/18 Blood Culture - Final, Complete NO GROWTH AFTER 5 DAYS 07/19/18 Blood Culture - Final, Complete NO GROWTH AFTER 5 DAYS 07/19/18 Stool Occult Blood (MAYCOL) - Final, Complete 07/20/18 Urine Culture - Final, Complete Escherichia Coli 07/18/18 Urine Culture - Final, Complete Escherichia Coli Saadia Campbell Jul 28, 2018 14:59
--- NOTE | 2018-07-28 17:30 | REP ---
Duplex extremity venous ultrasound: Bilateral lower extremities. History: Immobilization. Rule out DVT. Findings: The deep veins are anechoic and fully compressible from the groin to the popliteal fossa in the left and right lower extremity. Color flow imaging is homogeneous. Spectral Doppler interrogation demonstrates intact respiratory variation in flow and normal manual augmentation of flow. There is no evidence of deep vein thrombosis. There is a 5.0 x 1.2 x 3.7 cm Olmos's cyst in the left posterior popliteal soft tissues. Impression: Left Olmos's cyst, otherwise negative bilateral lower extremity duplex venous ultrasound. No evidence of deep vein thrombosis. Electronically Signed by Gurpreet Pizano MD 07/28/2018 05:21 P
[2018-07-28 20:00] VITALS: BP 198/90
[2018-07-28] MEDS: **NOTE PATIENT COMMENT** MISC XX SCH (21:00)
[2018-07-28] MEDS: TAMSULOSIN 0.4 MG CAP PO SCH (22:36)
[2018-07-28] MEDS: traZODone 25MG PER 1/2 TABLET PO PRN (22:38)
[2018-07-28] MEDS: ACETAMINOPHEN 500 MG TAB PO SCH (22:38)
[2018-07-29] MEDS ORDERED: IPRATROPIUM 0.5MG/ALBUTEROL 2.5MG INH SOL UD 3ML (DUONEB)(J7620) NEB PRN (01:00)
[2018-07-29] MEDS: RAMELTEON 8 MG TAB (ROZEREM) PO SCH ×2 (01:07→21:48)
[2018-07-29 05:20] VITALS: BP 158/78
[2018-07-29] MEDS: **hydrALAZINE** 50 MG TAB PO SCH ×4 (05:21→23:17)
[2018-07-29] MEDS: PHENYTOIN 50 MG CHEW TABLET PO SCH ×3 (05:22→21:49)
[2018-07-29] MEDS: ACETAMINOPHEN TAB 650MG DOSE (2X325MG) PO PRN (05:22)
[2018-07-29] MEDS: GEMFIBROZIL 600 MG TAB PO SCH ×2 (09:24→21:48)
[2018-07-29] MEDS: guaiFENesin 200 MG TAB PO SCH ×3 (09:24→21:48)
[2018-07-29] MEDS: LIDOCAINE 5% (LIDODERM) PATCH TD SCH (09:24)
[2018-07-29] MEDS: ASPIRIN 81 MG ENTERIC TAB PO SCH (09:25)
[2018-07-29] MEDS: FOLIC ACID 1 MG TAB PO SCH (09:25)
[2018-07-29] MEDS: predniSONE 20 MG TAB PO SCH ×2 (09:25→21:48)
[2018-07-29] MEDS: FEBUXOSTAT 40 MG TABLET (ULORIC) PO SCH (09:25)
[2018-07-29] MEDS: amLODIPine 10 MG TAB PO SCH (09:25)
[2018-07-29] MEDS: TORSEMIDE 20 MG TAB PO SCH (09:25)
[2018-07-29] MEDS: FAMOTIDINE 20 MG TAB PO SCH ×2 (09:25→21:47)
[2018-07-29] MEDS: CALCITRIOL 0.25 MCG CAP (S0169) PO SCH (09:25)
[2018-07-29] MEDS: LACTOBACILLUS ACIDOPHILUS CAP (BACID) PO SCH ×2 (09:26→18:10)
[2018-07-29] MEDS: DIAPER RELIEF PASTE (DESITIN) 60GM TOP SCH ×2 (09:26→21:00)
[2018-07-29] MEDS: CARVedilol 12.5 MG TAB PO SCH ×2 (09:26→21:48)
--- NOTE | 2018-07-29 10:41 | IPN ---
DATE: 07/28/2018 The patient was seen and examined on the bedside this morning. He is afebrile. Hemodynamically stable. His renal function is stable at baseline. He does report a mild amount of lower extremity edema. OBJECTIVE: VITAL SIGNS: Temperature 97.1 degrees Fahrenheit, blood pressure 146/71, pulse 75, respiratory rate of 18, saturating 98% on room air. Intake and output: Urine output recorded as 1.9 liters yesterday and 400 mL so far today since overnight. Weight on the bed scale is 97.9 kg. PHYSICAL EXAMINATION: GENERAL: Patient is awake, alert, oriented times three. Sitting up in the bed, no apparent distress. HEAD/NECK: Extraocular muscles intact. Pupils equal, round, and reactive to light. Right frontal scalp incision is well healed. Mucous membranes are moist. Neck is supple. There is no jugular venous distention (JVD). CARDIOVASCULAR: S1, S2. Regular rate. No edema of the bilateral lower extremities. RESPIRATORY: Chest clear to auscultation bilaterally. Bilaterally equal air entry. No rales or rhonchi. ABDOMEN: Soft, positive bowel sounds. Nontender. No organomegaly. MUSCULOSKELETAL: No clubbing or cyanosis. Pulses are 2+. 1+ edema of the bilateral lower extremities. CENTRAL NERVOUS SYSTEM (GLUING MACHINE ADJUSTER): No focal deficit. Power is 5/5 in all extremities. LAB REVIEW: CBC showed a WBC 5.4, hemoglobin 8.6, platelets 248. BMP showed sodium 139, potassium 3.5, chloride 105, bicarbonate 28, BUN 16, creatinine 1.2. IMAGING: Doppler of bilateral lower extremities showed left Olmos's cyst, otherwise negative bilateral lower extremity venous ultrasound. CURRENT INPATIENT MEDICATIONS: Patient's medications were all reviewed by me. I have started him on torsemide 20 mg by mouth daily. No other change in the medications today apart from tapering down off the prednisone dose. ASSESSMENT AND PLAN: 1. Acute kidney injury superimposed on chronic kidney disease. The patient's renal function is very stable. Creatinine has been fluctuating at 1.2. Because of lower extremity edema, I am starting low dose of diuretic. Renal function will be monitored. 2. Lower extremity edema. The patient has been started on torsemide 20 mg by mouth daily. 3. Gout in the right wrist. Range of motion in the right wrist has improved. His prednisone dose is being tapered down now. He continues to be on oral Uloric.
[2018-07-29] MEDS: IPRATROPIUM 0.5MG/ALBUTEROL 2.5MG INH SOL UD 3ML (DUONEB)(J7620) NEB SCH ×2 (11:27→19:51)
[2018-07-29 14:00] VITALS: BP 156/78
--- NOTE | 2018-07-29 16:22 | IPNPDOC ---
PM&R Progress Note DATE OF SERVICE: Jul 29, 2018 [employer] Progress Note Subjective: Patient seen in his room states he would prefer to shower only at night with his . He reports feeling much better overall and is aware of his temporal awareness deficits. He is trying to use the calendar to help him. REVIEW OF SYSTEMS: The following is a completed review of systems and has been reviewed. Review of systems otherwise unremarkable. PAIN: Patient self reports bilateral chronic knee pain EYES: Negative for recent vision changes EARS, NOSE, & THROAT: dysphagia (resolved) denies rhinorrhea CARDIOVASCULAR: +sternal pain, otherwise no palpitations PULMONARY: Negative. Denies shortness of breath, cough resolved. GASTROINTESTINAL:+ diarrhea GENITOURINARY: Negative for dysuria or hematuria, + retention (improved) MUSCULOSKELETAL: bilateral knee OA vs gout NEUROLOGICAL: s/p right frontal lobe resection , seizures HEMATOLOGICAL: Negative SKIN: sacral ulcer PSYCHIATRIC: Unremarkable All other review of systems found to be negative. PHYSICAL EXAMINATION: VITAL SIGNS: Please see below. GENERAL: Pleasant and cooperative. No acute distress. HEENT: PERRL. Extraocular movements intact. Clear conjunctiva, left facial droop (eyebrow sparing) CARDIOVASCULAR: Regular rate and rhythm. No murmurs, rubs, or gallops +TTP sternal palpation LUNGS: Clear to auscultation bilaterally. No wheezes. No rhonchi ABDOMEN: Soft, nontender, nondistended. Positive bowel sounds. Normal active bowel sound NEUROLOGICAL: Alert and oriented times to self and place, not time Cranial nerves II through XII grossly intact. Sensation grossly intact able to follow 2-step commands, however unable to perform Luria, +Apraxia EXTREMITIES:5\5 strength bilateral upper extremities. >3/5 bilateral hip flexors and knee extensors, 5/5 bilateral ankle DF and EHL Bilateral knees warm to touch with effusion right wrist, non-tender to palpation Left mid-foot warm to touch and mild TTP SKIN: sacral ulcer, right frontal craniotonomy incision c/d/i ASSESSMENT:68-year-old M with past medical history of ENEDINA, HTN, CAD who presents status post right frontal mass resection with seizures. PLAN: 1. rehab: PTOT, [employer] advance diet, assess for DME- significant apraxia, able to participate more in therapy, ambulating further with RW, however cognition impaired, continu [employer] for cognitive tasks in OT for safe discharge to home 2. Neuro:s/p right frontal mass resection, pathology per negative however awaiting offical results results, Dilantin for seizures 125q8h, however levels low at 9.1, increased to 150 qh on 07/12/18 and on 07/19/18 8.6 will increase to 175q8h and recheck 07/26/18 - neuro consult recs appreciated, s/p Decadron taper, will consider transition to Depakote given his impaired renal function -will need outpatient neuro f/u 2-4 weeks from discharge to review scans from [facility] and consider carotid US, he is s/p left CEA performed in by Dr. Rosa and currently has right carotid artery stenosis -reschedule surgery follow-up until 08/05/18 at 9:[address] Tello, path results do not suggest malignant tissue 3. Cardio: pmh HTn and HLD, hx of CHF, diuretics on hold per renal recs- medicine consulted, increased beta-ronda and added hydralazine for elevated B Ps-imrproving 4. Resp: ENEDINA non-compliant with CPAP, cough improved, recent diagnosis of Rhinovirus, off droplet precautions now 5. Endo: pmh DM continue home meds and adjust prn 6. Rheum: pmh gout, continue Uloric, s/p recent short dose of prednisone for r ight writs will consider another steroid dosing, patient encouraged to drink more water and avoid pepsi, continue prednisone taper for left foot 7. DVT ppx: continue heparin, US of right UE negative for DVT 8. GI ppx: omeprazole, patient found to have +C diff , given persistent diarrhea on Vancomycin, switched to Difficid 200mg BID x 10 days which is complete- diarrhea resolved 9. : admission UA and Ucx negative monitor PVRs- repeat Ua and Ucx positive for E. Coli, ID consulted, s/p Fosfomycin, recs appreciated, renal consulted for retention and metabolic acidosis s/p Bicarb drips recs appreciated 10. Heme: patient with anemia of chronic disease, given 2 units prbc per renal recs on 07/21, 10. Pain: patient with headaches, Tylenol and Fiorcet prn 11. Dispo: 08/02/18, slowly progressing towards goals, will request more time to work on safer discharge to home where he will not have 24/7 supervision, spoke with and she would prefer 08/06/18 for discharge and plans to obtain security camera and be home with him for 10 days for vacation Allergies Coded Allergies: No Known Allergies (Verified , 03/30/18) Vital Signs Vital Signs Date Time Temp Pulse Resp B/P (MAP) Pulse Ox O2 Delivery O2 Flow Rate FiO2 07/29/18 14:00 96.2 75 20 156/78 (104) 98 Laboratory Data Labs 24H Laboratory Tests 2 07/28/18 17:38: Bedside Glucose (Misc Panel) 230H 07/29/18 06:23: Magnesium Level 2.0 07/29/18 06:26: Bedside Glucose (Misc Panel) 158H Microbiology Microbiology 07/20/18 Blood Culture - Final, Complete NO GROWTH AFTER 5 DAYS 07/19/18 Blood Culture - Final, Complete NO GROWTH AFTER 5 DAYS 07/19/18 Stool Occult Blood (MAYCOL) - Final, Complete 07/20/18 Urine Culture - Final, Complete Escherichia Coli Current Medications Current Medications Current Medications Acetaminophen (Tylenol Tab) 650 mg DAILY PRN PO fever Last administered on 07/29/18at 05:22; Start 07/09/18 at 21:00 Acetaminophen (Tylenol Tab) 1,000 mg QHS PO Last administered on 07/28/18at 22:38; Start 07/26/18 at 21:00 Acetaminophen (Tylenol Tab) 1,000 mg TID PO Last administered on 07/26/18at 16:34; Start 07/09/18 at 21:00; Stop 07/26/18 at 18:28; Status DC Acetaminophen/ Butalbital/ Caffeine (Fioricet) 1 ea Q6HP PRN PO HEADACHE Last administered on 07/12/18at 12:58; Start 07/12/18 at 11:00 Albuterol/ Ipratropium (Duoneb (Ipr 0.5mg/Alb 2.5mg)) 3 ml BID NEB ; Start 07/14/18 at 21:00; Status UNV Albuterol/ Ipratropium (Duoneb (Ipr 0.5mg/Alb 2.5mg)) 3 ml Q4HP PRN NEB SOB/WHEEZING Last administered on 07/29/18at 01:12; Start 07/29/18 at 01:00 Albuterol/ Ipratropium (Duoneb (Ipr 0.5mg/Alb 2.5mg)) 3 ml RBID NEB Last administered on 07/29/18 11:27; Start 07/10/18 at 08:00 Amlodipine Besylate (Norvasc) 10 mg DAILY PO Last administered on 07/29/18 09:25; Start 07/10/18 at 09:00 Aspirin (Ecotrin) 81 mg DAILY PO Last administered on 07/29/18 09:25; Start 07/10/18 at 09:00 Bisacodyl (Dulcolax Suppository) 10 mg DAILYPRN PRN ID CONSTIPATION; Start 07/09/18 at 21:15; Stop 07/20/18 at 14:26; Status DC Calcitriol (Rocaltrol) 0.25 mcg DAILY PO Last administered on 07/29/18 09:25; Start 07/10/18 at 09:00 Calcium Carbonate (Tums) 500 mg DAILYPRN PRN PO INDIGESTION Last administered on 07/20/18 01:22; Start 07/19/18 at 20:00 Carvedilol (COReg) 12.5 mg BID PO Last administered on 07/14/18 09:03; Start 07/09/18 at 21:00; Stop 07/14/18 at 11:08; Status DC Carvedilol (COReg) 25 mg BID PO Last administered on 07/19/18 08:40; Start 07/14/18 at 21:00; Stop 07/19/18 at 10:30; Status DC Carvedilol (COReg) 37.5 mg BID PO Last administered on 07/25/18 08:48; Start 07/19/18 at 21:00; Stop 07/25/18 at 18:46; Status DC Carvedilol (COReg) 50 mg BID PO Last administered on 07/29/18 09:26; Start 07/25/18 at 21:00 Cefepime HCl 1 gm/ Dextrose 50 ml @ 100 mls/hr Q24H IV Last administered on 07/20/18 15:15; Start 07/20/18 at 13:00; Stop 07/20/18 at 19:38; Status DC Cod Liver Oil/ Zinc Oxide (Desitin) apply to sacrum BID TOP Last administered on 07/28/18 21:00; Start 07/10/18 at 09:00 Dexamethasone (Decadron) 2 mg DAILY PO Last administered on 07/20/18at 10:34; Start 07/16/18 at 09:00; Stop 07/21/18 at 08:59; Status DC Dexamethasone (Decadron) 2 mg DAILY PO ; Start 07/18/18 at 09:00; Stop 07/18/18 at 09:00; Status DC Dexamethasone (Decadron) 2 mg Q12H PO Last administered on 07/15/18at 21:09; Start 07/13/18 at 21:00; Stop 07/15/18 at 21:55; Status DC Dexamethasone (Decadron) 4 mg Q12H PO Last administered on 07/13/18at 08:35; Start 07/09/18 at 21:00; Stop 07/13/18 at 20:59; Status DC Dextrose (Dextrose 50%) 25 ml ASDIRECTED PRN IV SEE LABEL COMMENTS; Start 07/09/18 at 21:00 Famotidine (Pepcid) 10 mg BID PO Last administered on 07/29/18 09:25; Start 07/12/18 at 15:00 Febuxostat (Uloric) 120 mg DAILY PO Last administered on 07/29/18 09:25; Start 07/10/18 at 09:00 Fidaxomicin (Dificid) 200 mg BID PO Last administered on 07/25/18 21:55; Start 07/16/18 at 11:45; Stop 07/25/18 at 21:01; Status DC Folic Acid (Folic Acid) 1 mg DAILY PO Last administered on 07/29/18 09:25; Start 07/16/18 at 09:00 Fosfomycin Tromethamine (Monurol) 3 gm Q2D PO Last administered on 07/24/18 08:52; Start 07/22/18 at 09:00; Stop 07/24/18 at 12:00; Status DC Gemfibrozil (Lopid) 600 mg BID PO Last administered on 07/29/18 09:24; Start 07/09/18 at 21:00 Glucagon (Glucagon) 1 mg ASDIRECTED PRN SC SEE LABEL COMMENTS; Start 07/09/18 at 21:00 Glucose (Glucose) 16 GM ASDIRECTED PRN PO SEE LABEL COMMENTS; Start 07/09/18 at 21:00 Guaifenesin (Robitussin Tab) 400 mg TID PO Last administered on 07/29/18at 09:24; Start 07/10/18 at 09:00 Guaifenesin (Robitussin Tab) 400 mg TID PO ; Start 07/14/18 at 21:00; Stop 07/14/18 at 21:00; Status DC Heparin Sodium (Porcine) (Heparin) 5,000 units Q8H SQ Last administered on 07/28/18at 05:29; Start 07/09/18 at 22:00; Stop 07/28/18 at 10:00; Status DC Home Med (Med Rec Complete!) ASDIRECTED XX ; Start 07/09/18 at 23:00; Stop 07/09/18 at 23:00; Status DC Hydralazine HCl (Apresoline) 25 mg Q6H PO Last administered on 07/23/18at 05:52; Start 07/20/18 at 12:00; Stop 07/23/18 at 11:52; Status DC Hydralazine HCl (Apresoline) 50 mg Q6H PO Last administered on 07/29/18at 12:38; Start 07/23/18 at 12:00 Insulin Detemir (Levemir Insulin) 10 units QHS SC Last administered on 07/16/18at 21:49; Start 07/15/18 at 21:00; Stop 07/19/18 at 13:01; Status DC Insulin Detemir (Levemir Insulin) 20 units QHS SC Last administered on 07/14/18at 22:04; Start 07/09/18 at 21:00; Stop 07/15/18 at 14:20; Status DC Insulin Human Lispro (HumaLOG INSULIN) SEE PROTOCOL TABLE AC SC Last administered on 07/27/18at 07:52; Start 07/10/18 at 07:30; Stop 07/27/18 at 11:01; Status DC Lactobacillus Acidophilus (Bacid) 1 ea BIDWM PO Last administered on 07/14/18at 08:59; Start 07/11/18 at 08:00; Stop 07/14/18 at 13:09; Status DC Lactobacillus Acidophilus (Bacid) 2 ea BIDWM PO Last administered on 07/29/18 09:26; Start 07/14/18 at 18:00 Lidocaine (Lidoderm Patch) 1 patch DAILY TD Last administered on 07/29/18 09:24; Start 07/10/18 at 09:00 Lorazepam (Ativan) 2 mg Q6H PRN IV SEIZURES; Start 07/10/18 at 02:30; Stop 07/22/18 at 12:01; Status DC Magnesium Hydroxide (Milk Of Magnesia) 30 ml DAILYPRN PRN PO CONSTIPATION; Start 07/09/18 at 21:15; Stop 07/20/18 at 14:26; Status DC Metronidazole (Flagyl) 500 mg Q8H PO Last administered on 07/11/18 05:01; Start 07/11/18 at 04:00; Stop 07/11/18 at 07:12; Status DC Miscellaneous (Unresolved Clarification Entry) SEE LABEL COMMENTS DAILY XX ; Start 07/21/18 at 09:00; Stop 07/22/18 at 07:12; Status DC Miscellaneous (Unresolved Clarification Entry) SEE LABEL COMMENTS DAILY XX ; Start 07/22/18 at 09:00; Stop 07/23/18 at 04:46; Status DC Non-Formulary Medication ( See Comment Field Below ) REMOVE LIDODERM PATCH DAILY@21 XX Last administered on 07/28/18 21:00; Start 07/09/18 at 21:00 Omeprazole (PriLOSEC) 40 mg QHS PO Last administered on 07/11/18 22:26; Start 07/09/18 at 21:00; Stop 07/12/18 at 14:39; Status DC Ondansetron HCl (Zofran) 4 mg Q6HP PRN PO NAUSEA Last administered on 07/28/18 08:47; Start 07/09/18 at 21:15 Phenytoin (Dilantin Chewable) 125 mg Q8H PO Last administered on 07/12/18 05:49; Start 07/09/18 at 22:00; Stop 07/12/18 at 10:30; Status DC Phenytoin (Dilantin Chewable) 150 mg Q8H PO Last administered on 07/19/18 13:01; Start 07/12/18 at 14:00; Stop 07/19/18 at 15:37; Status DC Phenytoin (Dilantin Chewable) 175 mg Q8H PO Last administered on 07/29/18at 14:37; Start 07/19/18 at 22:00 Potassium Chloride (Micro-K Extencaps) 20 meq DAILY PO Last administered on 07/17/18at 10:19; Start 07/12/18 at 09:00; Stop 07/17/18 at 11:48; Status DC Prednisone (Deltasone) 5 mg DAILY PO ; Start 08/09/18 at 09:00; Stop 08/11/18 at 09:01 Prednisone (Deltasone) 10 mg BID PO ; Start 08/03/18 at 09:00; Stop 08/05/18 at 21:01 Prednisone (Deltasone) 10 mg DAILY PO ; Start 08/06/18 at 09:00; Stop 08/08/18 at 09:01 Prednisone (Deltasone) 15 mg BID PO ; Start 07/31/18 at 09:00; Stop 08/02/18 at 21:01 Prednisone (Deltasone) 20 mg BID PO Last administered on 07/25/18at 08:47; Start 07/23/18 at 21:00; Stop 07/25/18 at 10:00; Status DC Prednisone (Deltasone) 20 mg BID PO Last administered on 07/29/18at 09:25; Start 07/28/18 at 09:00; Stop 07/30/18 at 21:01 Ramelteon (Rozerem) 8 mg QHS PO Last administered on 07/29/18at 01:07; Start 07/28/18 at 21:00 Senna/Docusate Sodium (Senokot S) 1 tab BID PO Last administered on 07/11/18at 22:23; Start 07/10/18 at 09:00; Stop 07/12/18 at 14:39; Status DC Sodium Bicarbonate 150 meq/Sterile Water 1,150 ml @ 60 mls/hr [id number] IV Last administered on 07/22/18at 17:42; Start 07/20/18 at 09:00; Stop 07/23/18 at 04:19; Status DC Sodium Bicarbonate 150 meq/Sterile Water 1,150 ml @ 60 mls/hr [id number] IV ; Start 07/23/18 at 08:00; Stop 07/23/18 at 08:00; Status DC Tamsulosin HCl (Flomax) 0.4 mg QHS PO Last administered on 07/28/18at 22:36; Start 07/09/18 at 21:00 Torsemide (Demadex) 20 mg DAILY PO Last administered on 07/29/18 09:25; Start 07/28/18 at 12:00 Torsemide (Demadex) 50 mg BID@,17 PO ; Start 07/10/18 at 09:00; Stop 07/10/18 at 09:24; Status DC Trazodone HCl (Desyrel) 25 mg QHSP PRN PO INSOMNIA Last administered on 07/28/18 22:38; Start 07/09/18 at 21:00 Vancomycin HCl (First-Vancomycin 50(Firvanq)- 250mg/5ml) 125 mg Q6H PO Last administered on 07/16/18at 05:44; Start 07/11/18 at 06:00; Stop 07/16/18 at 11:37; Status DC Zinc Oxide (Boudreauxs Butt Paste) sacrum BID TOP ; Start 07/10/18 at 09:00; Stop 07/10/18 at 13:02; Status DC ESTRELLITA STANTON MD Jul 29, 2018 16:22
--- NOTE | 2018-07-29 16:37 | IPN ---
DATE: 07/29/2018 Mr. Isaac seems sleepy this afternoon, but he has no new complaints. He states his bowel movements have finally improved. His diarrhea resolved on Thursday. He is on probiotics two tablets twice a day. He denies any urinary symptoms, fever, chills or night sweats. His last dose of fidaxomicin was on 07/25/2018, 10 days. On physical exam, temperature is 96.2, pulse 75, respirations 20, blood pressure 156/78, oxygen saturation 98% on room air. Heart: Normal S1, S2. No murmurs. Lungs are clear. Abdomen: Obese, soft, nontender. Extremities: No edema. Labs from 07/28/2018: White count 5.4, hemoglobin 8.6, hematocrit 26.4, platelets 248. Sodium 139, potassium 3.5, chloride 105, bicarbonate 28, BUN 16, creatinine 1.2, glucose 140, calcium 7.7, magnesium 1.7, AST 13, ALT 12, alkaline phosphatase 149, total protein 5.9, albumin 2. IMPRESSION: 1. Urinary tract infection with Escherichia coli (E-coli). Treated with three doses of fosfomycin, 3 grams every other day. 2. Clostridium difficile (C difficile) colitis. Failed vancomycin treatment, received 10 days of fidaxomicin with resolution of symptoms. The patient is continued on probiotics. Fidaxomicin was discontinued on 07/25/2018. PLAN: Infectious disease signing off. Thank you for consultation. Monitor for recurrent C difficile that occurs in at least 30% of patients.
[2018-07-29 20:00] VITALS: BP 150/72
[2018-07-29] MEDS: **NOTE PATIENT COMMENT** MISC XX SCH (21:00)
[2018-07-29] MEDS: TAMSULOSIN 0.4 MG CAP PO SCH (21:48)
[2018-07-29] MEDS: ACETAMINOPHEN 500 MG TAB PO SCH (21:49)
[2018-07-29] MEDS: traZODone 25MG PER 1/2 TABLET PO PRN (23:17)
[2018-07-30] MEDS: PHENYTOIN 50 MG CHEW TABLET PO SCH ×3 (05:00→22:45)
[2018-07-30] MEDS: **hydrALAZINE** 50 MG TAB PO SCH ×4 (05:00→22:52)
[2018-07-30 05:15] VITALS: BP 158/70
[2018-07-30 07:38] LABS: BASO % 0.8 % (0.0-1.0); EOS # 0.1 10^3/uL (0.0-0.50); EOS % 2.5 % (0.0-3.0); HEMATOCRIT 25.3 % (42.0-52.0); HEMOGLOBIN 8.2 g/dl (13.5-17.5); LYMPH % 18.4 % (24.0-44.0); MEAN CORPUSCULAR HEMOGLOBIN 28.8 pg (27.0-33.0); MEAN CORPUSCULAR HGB CONC 32.4 g/dl (32.0-36.5); MEAN CORPUSCULAR VOLUME 88.8 fl (80.0-96.0); MONO # 0.4 10^3/uL (0.0-0.8); MONO % 7.2 % (0.0-5.0); NEUTROPHILS # 3.7 10^3/uL (1.8-7.7); NEUTROPHILS % 70.7 % (36.0-66.0); PLATELET COUNT, AUTOMATED 277 10^3/uL (150-450); RED BLOOD COUNT 2.85 10^6/uL (4.30-6.10); WHITE BLOOD COUNT 5.3 10^3/uL (4.0-10.0)
[2018-07-30 07:57] LABS: ALBUMIN 2.1 GM/DL (3.2-5.2); CALCIUM LEVEL 7.8 MG/DL (8.8-10.2); CREATININE FOR GFR 1.44 MG/DL (0.70-1.30); GLOMERULAR FILTRATION RATE 52.1 (>49); PHOSPHORUS LEVEL 3.1 MG/DL (2.5-4.9); POTASSIUM SERUM 3.8 MEQ/L (3.5-5.1)
[2018-07-30] MEDS: IPRATROPIUM 0.5MG/ALBUTEROL 2.5MG INH SOL UD 3ML (DUONEB)(J7620) NEB SCH ×2 (08:14→21:05)
[2018-07-30] MEDS: ANALGESIC BALM CRM 120 GM TOP SCH ×3 (09:00→22:45)
[2018-07-30] MEDS: guaiFENesin 200 MG TAB PO SCH ×3 (09:00→22:48)
[2018-07-30] MEDS: DIAPER RELIEF PASTE (DESITIN) 60GM TOP SCH ×2 (09:00→22:44)
[2018-07-30] MEDS: GEMFIBROZIL 600 MG TAB PO SCH ×2 (10:32→22:49)
[2018-07-30] MEDS: amLODIPine 10 MG TAB PO SCH (10:33)
[2018-07-30] MEDS: LACTOBACILLUS ACIDOPHILUS CAP (BACID) PO SCH ×2 (10:33→19:10)
[2018-07-30] MEDS: FOLIC ACID 1 MG TAB PO SCH (10:33)
[2018-07-30] MEDS: FEBUXOSTAT 40 MG TABLET (ULORIC) PO SCH (10:33)
[2018-07-30] MEDS: CARVedilol 12.5 MG TAB PO SCH ×2 (10:35→22:50)
[2018-07-30] MEDS: FAMOTIDINE 20 MG TAB PO SCH ×2 (10:36→22:45)
[2018-07-30] MEDS: CALCITRIOL 0.25 MCG CAP (S0169) PO SCH (10:37)
[2018-07-30] MEDS: predniSONE 20 MG TAB PO SCH ×2 (10:37→22:55)
[2018-07-30] MEDS: ASPIRIN 81 MG ENTERIC TAB PO SCH (10:37)
[2018-07-30] MEDS: LIDOCAINE 5% (LIDODERM) PATCH TD SCH (10:41)
--- NOTE | 2018-07-30 13:43 | IPNPDOC ---
Date Seen The patient was seen on 07/30/18. Progress Note HPI: 68M pnh HTN and DM, left carotid artery stenosis s/p stenting, gout, CAD, ENEDINA, CKD3, recent GIB who initially presented to [facility] on 06/29/18 with reported seizures, arrived with a Arnav Coma Scale of 3, was given loading dose of Dilantin and intubated. CTH showed a right frontal mass so he was transferred to [facility] in [place], [place] for further work-up. At [place] MRI on 06-30-18 showed a 3cm by 3cm right frontal lobe lesion with a hemorrhagic component, possible neoplam or less likley transformation of an infarction. He was found to have leukocytosis which was thought to be from seizure activity and remained afebrile. He had significant hyponatremia, acute on chronic CKD and elevated blood sugars managed with insulin. He was evaluated by neurosurgery and had a resection of his right frontal mass on 07/04/18 after which he was maintained on a Decadron taper and continued on Dilantin for seizure prophylaxis. He was evaluated by therapy and noted to have significant impairment in his ADLs and gait, and was deemed medically appropriate for transfer to [facility] ARU on 07-09-18, as per Dr Young, with pathology pending from his recent tumor resection. Pt reports reports feeling much better overall with resolution of loose stools. Denies abdominal pain, N/V. Denies any fevers, chills, weakness, fatigue, STEPHENS, CP, palpitations. PE: GEN: 68yoM, appears stated age. Alert and oriented x 3. HEENT: Normocephalic, healing craniotomy scar. Sclera are nonicteric. Conjunctiva without injection. No facial asymmetry. Moist mucous membranes. CHEST: Regular rate and rhythm, +S1, +S2 LUNGS: CTA. No wheezes, rales, or rhonchi appreciated. ABD: Round, soft, non-tender, non-distended. +Bowel sounds throughout. EXT: Tr lower extremity edema appreciated. SKIN: [place], dry, warm. No rashes. A&P: 1. Frontal cranial mass status post resection at [facility] in [place] on 07/05/2018. Mgmt as per ARU. PT/OT/ST as per ARU Pain control as per ARU DVT prophylaxis as per ARU, SQ Heparin. Outpt F/U with Neurosurgery. Continue on Decadron taper as per Neurosurgery. Continue on Dilantin seizure prophylaxis as per Neurosurgery. Dilantin dose adjusted as per attending to 175 Q8h, Dilantin level 07/26/18 10.8. Pt seen by Neurology. Outpt F/U planned. Seizure precautions. Slid OOB 07/14/18- CT head completed with no acute changes. Repeat CT 07/20/18 with no acute changes. 2. C diff. positive Afebrile. WBC 5.5 PO Vanco changed to Dificid 07/16/18. Dificid x 10d completed 07/25/18. Bacid 2 tab BID. Resolved. 3. Hypokalemia. S/P po supplement . Monitor. 4. Hypomagnesemia. S/P mag run. Continue to monitor mag level. 5. Chronic kidney disease3. Nephrology following. Demadex 20 mg daily ON HOLD. Monitor. 6. Gout. On Uloric. 7. Hypertension. Norvasc 10 mg daily, carvedilol 50mg mg BID. Hydralazine 25 mg Q6 with hold parameter. Monitor. 8. Coronary artery disease. ASA 9. Carotid stenosis, status post endarterectomy. 10. Congestive heart failure. Demadex ON HOLD Nephrology following. 10. Diabetes. Levemir d/cd 07/19/18, no further hypoglycemia. SSI Monitor 11. Benign prostatic hypertrophy (BPH). Flomax. 13. Anemia. Normocytic. Likely related to chronic disease/CKD. hgb 8.2. Fe studies, B12, folate 07/14/18. Folate supplement added. PRBC x 2 units 07/21. Monitor need for transfusion. 14. H/o UTI. E Coli. Possible recurrent UTI. UC 07/18/18 pansensitive E coli. 07/20 E coli Pt treated with Fosfomycin x 3 doses completed 07/24/18 as per ID. UA 07/30 with nitrite and LE, UC 07/30/18 pending. Pt afebrile, no leukocytosis. Discussed with Dr Hewitt, await results. Renal U/S pending. Appreciate ID assistance. 15. GI prophylaxis. HOLD PPI. Continue pepcid. VS, I&O, 24H, Fishbone Vital Signs/I&O Vital Signs Date Time Temp Pulse Resp B/P (MAP) Pulse Ox O2 Delivery O2 Flow Rate FiO2 07/30/18 10:35 69 158/70 07/30/18 05:15 96.4 18 96 I&O- Last 24 Hours up to 6 AM 07/30/18 06:00 Intake Total 765 ml Output Total 1600 ml Balance -835 ml Laboratory Data 24H LABS Laboratory Tests 2 07/29/18 16:42: Bedside Glucose (Misc Panel) 188H 07/30/18 06:09: Bedside Glucose (Misc Panel) 257H 07/30/18 07:20: Immature Granulocyte % (Auto) 0.4, White Blood Count 5.3, Red Blood Count 2.85L, Hemoglobin 8.2L, Hematocrit 25.3L, Mean Corpuscular Volume 88.8, Mean Corpuscular Hemoglobin 28.8, Mean Corpuscular Hemoglobin Concent 32.4, Red Cell Distribution Width 17.6H, Platelet Count 277, Neutrophils (%) (Auto) 70.7H, Lymphocytes (%) (Auto) 18.4L, Monocytes (%) (Auto) 7.2H, Eosinophils (%) (Auto) 2.5, Basophils (%) (Auto) 0.8, Neutrophils # (Auto) 3.7, Lymphocytes # (Auto) 1.0L, Monocytes # (Auto) 0.4, Eosinophils # (Auto) 0.1, Basophils # (Auto) 0.0, Nucleated Red Blood Cells % (auto) 0.0, Blood Urea Nitrogen 21H, Creatinine 1.44H, Sodium Level 140, Potassium Level 3.8, Chloride Level 107, Carbon Dioxide Level 26, Anion Gap 7L, Glomerular Filtration Rate 52.1, Calcium Level 7.8L, Phosphorus Level 3.1, Albumin 2.1L 07/30/18 07:29: Urine Color YELLOW, Urine Appearance CLOUDYH, Urine pH 6.0, Urine Specific [place] 1.006, Urine Protein 2+H, Urine Glucose (UA) 1+H, Urine Ketones NEGATIVE, Urine Blood 1+H, Urine Nitrite POSITIVEH, Urine Bilirubin NEGATIVE, Urine Urobilinogen 0.2, Urine Leukocyte Esterase 3+H, Urine WBC (Auto) TNTCH, Urine RBC (Auto) 17H, Urine Hyaline Casts (Auto) 0, Urine Bacteria (Auto) 2+H, Urine Squamous Epithelial Cells 1, Urine Amorphous Sediment SMALLH, Urine Sperm (Auto) CBC/BMP Laboratory Tests 07/30/18 07:20 Red Blood Count 2.85 L, Mean Corpuscular Volume 88.8, Mean Corpuscular Hemoglobin 28.8, Mean Corpuscular Hemoglobin Concent 32.4, Red Cell Distribution Width 17.6 H, Neutrophils (%) (Auto) 70.7 H, Lymphocytes (%) (Auto) 18.4 L, Monocytes (%) (Auto) 7.2 H, Eosinophils (%) (Auto) 2.5, Basophils (%) (Auto) 0.8, Neutrophils # (Auto) 3.7, Lymphocytes # (Auto) 1.0 L, Monocytes # (Auto) 0. 4, Eosinophils # (Auto) 0.1, Basophils # (Auto) 0.0, Anion Gap 7 L Microbiology Microbiology 07/20/18 Blood Culture - Final, Complete NO GROWTH AFTER 5 DAYS 07/30/18 Urine Culture, Received Pending 07/20/18 Urine Culture - Final, Complete Escherichia Coli Saadia Campbell Jul 30, 2018 13:43
[2018-07-30 14:00] VITALS: BP 148/60
[2018-07-30] MEDS: AMOXICILLIN 500 MG CAP PO SCH ×2 (14:00→22:50)
--- NOTE | 2018-07-30 15:48 | IPNPDOC ---
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 REVIEW OF SYSTEMS: The following is a completed review of systems and has been reviewed. Review of systems otherwise unremarkable. PAIN: Patient self reports bilateral chronic knee pain EYES: Negative for recent vision changes EARS, NOSE, & THROAT: dysphagia (resolved) denies rhinorrhea CARDIOVASCULAR: +sternal pain, otherwise no palpitations PULMONARY: Negative. Denies shortness of breath, cough resolved. GASTROINTESTINAL:+ diarrhea GENITOURINARY: Negative for dysuria or hematuria, + retention (improved) MUSCULOSKELETAL: bilateral knee OA vs gout NEUROLOGICAL: s/p right frontal lobe resection , seizures HEMATOLOGICAL: Negative SKIN: sacral ulcer PSYCHIATRIC: Unremarkable All other review of systems found to be negative. PHYSICAL EXAMINATION: VITAL SIGNS: Please see below. GENERAL: Pleasant and cooperative. No acute distress. HEENT: PERRL. Extraocular movements intact. Clear conjunctiva, left facial droop (eyebrow sparing) CARDIOVASCULAR: Regular rate and rhythm. No murmurs, rubs, or gallops +TTP sternal palpation LUNGS: Clear to auscultation bilaterally. No wheezes. No rhonchi ABDOMEN: Soft, nontender, nondistended. Positive bowel sounds. Normal active bowel sound NEUROLOGICAL: Alert and oriented times to self and place, not time Cranial nerves II through XII grossly intact. Sensation grossly intact able to follow 2-step commands, however unable to perform Luria, +Apraxia EXTREMITIES:5\5 strength bilateral upper extremities. >3/5 bilateral hip flexors and knee extensors, 5/5 bilateral ankle DF and EHL Bilateral knees warm to touch with effusion right wrist, non-tender to palpation Left mid-foot warm to touch and mild TTP SKIN: sacral ulcer, right frontal craniotonomy incision c/d/i ASSESSMENT:68-year-old M with past medical history of ENEDINA, HTN, CAD who presents status post right frontal mass resection with seizures. PLAN: 1. rehab: PTOT, HISTOTECHNICIAN advance diet, assess for DME- significant apraxia, able to participate more in therapy, ambulating further with RW, however cognition impaired, continu HISTOTECHNICIAN for cognitive tasks in OT for safe discharge to home 2. Neuro:s/p right frontal mass resection, pathology per negative however awaiting offical results results, Dilantin for seizures 125q8h, however levels low at 9.1, increased to 150 qh on 07/12/18 and on 07/19/18 8.6 will increase to 175q8h and recheck 07/26/18 - neuro consult recs appreciated, s/p Decadron taper, will consider transition to Depakote given his impaired renal function -will need outpatient neuro f/u 2-4 weeks from discharge to review scans from [facility] and consider carotid US, he is s/p left CEA performed in by Dr. Rosa and currently has right carotid artery stenosis -reschedule surgery follow-up until 08/05/18 at 9:[address] Tello, path results do not suggest malignant tissue 3. Cardio: pmh HTn and HLD, hx of CHF, diuretics on hold per renal recs- medicine consulted, increased beta-ronda and added hydralazine for elevated BPs-imrproving 4. Resp: ENEDINA non-compliant with CPAP, cough improved, recent diagnosis of R hinovirus, off droplet precautions now 5. Endo: pmh DM continue home meds and adjust prn 6. Rheum: pmh gout, continue Uloric, s/p recent short dose of prednisone for right writs will consider another steroid dosing, patient encouraged to drink more water and avoid pepsi, continue prednisone taper for left foot 7. DVT ppx: continue heparin, US of right UE negative for DVT 8. GI ppx: omeprazole, patient found to have +C diff , given persistent diarrhea on Vancomycin, switched to Difficid 200mg BID x 10 days which is complete- diarrhea resolved 9. : admission UA and Ucx negative monitor PVRs- repeat Ua and Ucx positive for E. Coli, ID consulted, s/p Fosfomycin, recs appreciated-repeat UA +LE and nitrites, patient reports polyuria overnight, will start IV ampicillin 500q6h x 14 days -Renal US ordered, results pending renal consulted for retention and metabolic acidosis s/p Bicarb drips recs appreciated 10. Heme: patient with anemia of chronic disease, given 2 units prbc per renal recs on 07/21, 10. Pain: patient with headaches, Tylenol and Fiorcet prn 11. Dispo: 08/02/18, slowly progressing towards goals, will request more time to work on safer discharge to home where he will not have 12/01 supervision, spoke with and she would prefer 08/06/18 for discharge and plans to obtain se curity camera and be home with him for 10 days for vacation Allergies Coded Allergies: No Known Allergies (Verified , 03/30/18) Vital Signs Vital Signs Date Time Temp Pulse Resp B/P (MAP) Pulse Ox O2 Delivery O2 Flow Rate FiO2 07/30/18 14:33 140/60 07/30/18 10:35 69 07/30/18 05:15 96.4 18 96 Laboratory Data CBC/BMP Laboratory Tests 07/30/18 07:20 Red Blood Count 2.85 L, Mean Corpuscular Volume 88.8, Mean Corpuscular Hemoglobin 28.8, Mean Corpuscular Hemoglobin Concent 32.4, Red Cell Distribution Width 17.6 H, Neutrophils (%) (Auto) 70.7 H, Lymphocytes (%) (Auto) 18.4 L, Monocytes (%) (Auto) 7.2 H, Eosinophils (%) (Auto) 2.5, Basophils (%) (Auto) 0.8, Neutrophils # (Auto) 3.7, Lymphocytes # (Auto) 1.0 L, Monocytes # (Auto) 0.4, Eosinophils # (Auto) 0.1, Basophils # (Auto) 0.0, Anion Gap 7 L Labs 24H Laboratory Tests 2 07/29/18 16:42: Bedside Glucose (Misc Panel) 188H 07/30/18 06:09: Bedside Glucose (Misc Panel) 257H 07/30/18 07:20: Immature Granulocyte % (Auto) 0.4, White Blood Count 5.3, Red Blood Count 2.85L, Hemoglobin 8.2L, Hematocrit 25.3L, Mean Corpuscular Volume 88.8, Mean Corpuscular Hemoglobin 28.8, Mean Corpuscular Hemoglobin Concent 32.4, Red Cell Distribution Width 17.6H, Platelet Count 277, Neutrophils (%) (Auto) 70.7H, Lymphocytes (%) (Auto) 18.4L, Monocytes (%) (Auto) 7.2H, Eosinophils (%) (Auto) 2.5, Basophils (%) (Auto) 0.8, Neutrophils # (Auto) 3.7, Lymphocytes # (Auto) 1.0L, Monocytes # (Auto) 0.4, Eosinophils # (Auto) 0.1, Basophils # (Auto) 0.0, Nucleated Red Blood Cells % (auto) 0.0, Blood Urea Nitrogen 21H, Creatinine 1.44H, Sodium Level 140, Potassium Level 3.8, Chloride Level 107, Carbon Dioxide Level 26, Anion Gap 7L, Glomerular Filtration Rate 52.1, Calcium Level 7.8L, Phosphorus Level 3.1, Albumin 2.1L 07/30/18 07:29: Urine Color YELLOW, Urine Appearance CLOUDYH, Urine pH 6.0, Urine Specific Central 1.006, Urine Protein 2+H, Urine Glucose (UA) 1+H, Urine Ketones NEGATIVE, Urine Blood 1+H, Urine Nitrite POSITIVEH, Urine Bilirubin NEGATIVE, Urine Urobilinogen 0.2, Urine Leukocyte Esterase 3+H, Urine WBC (Auto) TNTCH, Urine RBC (Auto) 17H, Urine Hyaline Casts (Auto) 0, Urine Bacteria (Auto) 2+H, Urine Squamous Epithelial Cells 1, Urine Amorphous Sediment SMALLH, Urine Sperm (Auto) Microbiology Microbiology 07/20/18 Blood Culture - Final, Complete NO GROWTH AFTER 5 DAYS 07/30/18 Urine Culture, Received Pending 07/20/18 Urine Culture - Final, Complete Escherichia Coli Current Medications Current Medications Current Medications Acetaminophen (Tylenol Tab) 650 mg DAILY PRN PO fever Last administered on 07/29/18at 05:22; Start 07/09/18 at 21:00 Acetaminophen (Tylenol Tab) 1,000 mg QHS PO Last administered on 07/29/18 21:49; Start 07/26/18 at 21:00 Acetaminophen (Tylenol Tab) 1,000 mg TID PO Last administered on 07/26/18at 16:34; Start 07/09/18 at 21:00; Stop 07/26/18 at 18:28; Status DC Acetaminophen/ Butalbital/ Caffeine (Fioricet) 1 ea Q6HP PRN PO HEADACHE Last administered on 07/12/18at 12:58; Start 07/12/18 at 11:00 Albuterol/ Ipratropium (Duoneb (Ipr 0.5mg/Alb 2.5mg)) 3 ml BID NEB ; Start 07/14/18 at 21:00; Status UNV Albuterol/ Ipratropium (Duoneb (Ipr 0.5mg/Alb 2.5mg)) 3 ml Q4HP PRN NEB SOB/WHEEZING Last administered on 07/29/18 01:12; Start 07/29/18 at 01:00 Albuterol/ Ipratropium (Duoneb (Ipr 0.5mg/Alb 2.5mg)) 3 ml RBID NEB Last administered on 07/30/18 08:14; Start 07/10/18 at 08:00 Amlodipine Besylate (Norvasc) 10 mg DAILY PO Last administered on 07/30/18 10:33; Start 07/10/18 at 09:00 Amoxicillin (Amoxicillin) 500 mg Q8H PO ; Start 07/30/18 at 14:00 Ampicillin Sodium 500 mg/Dextrose 50 ml @ 100 mls/hr Q6H IV ; Start 07/30/18 at 18:00; Stop 07/30/18 at 18:00; Status DC Aspirin (Ecotrin) 81 mg DAILY PO Last administered on 07/30/18 10:37; Start 07/10/18 at 09:00 Bisacodyl (Dulcolax Suppository) 10 mg DAILYPRN PRN [place] CONSTIPATION; Start 07/09/18 at 21:15; Stop 07/20/18 at 14:26; Status DC Calcitriol (Rocaltrol) 0.25 mcg DAILY PO Last administered on 07/30/18 10:37; Start 07/10/18 at 09:00 Calcium Carbonate (Tums) 500 mg DAILYPRN PRN PO INDIGESTION Last administered on 07/20/18 01:22; Start 07/19/18 at 20:00 Carvedilol (COReg) 12.5 mg BID PO Last administered on 07/14/18 09:03; Start 07/09/18 at 21:00; Stop 07/14/18 at 11:08; Status DC Carvedilol (COReg) 25 mg BID PO Last administered on 07/19/18 08:40; Start 07/14/18 at 21:00; Stop 07/19/18 at 10:30; Status DC Carvedilol (COReg) 37.5 mg BID PO Last administered on 07/25/18 08:48; Start 07/19/18 at 21:00; Stop 07/25/18 at 18:46; Status DC Carvedilol (COReg) 50 mg BID PO Last administered on 07/30/18 10:35; Start 07/25/18 at 21:00 Cefepime HCl 1 gm/ Dextrose 50 ml @ 100 mls/hr Q24H IV Last administered on 07/20/18 15:15; Start 07/20/18 at 13:00; Stop 07/20/18 at 19:38; Status DC Cod Liver Oil/ Zinc Oxide (Desitin) apply to sacrum BID TOP Last administered on 07/30/18 09:00; Start 07/10/18 at 09:00 Dexamethasone (Decadron) 2 mg DAILY PO Last administered on 07/20/18 10:34; Start 07/16/18 at 09:00; Stop 07/21/18 at 08:59; Status DC Dexamethasone (Decadron) 2 mg DAILY PO ; Start 07/18/18 at 09:00; Stop 07/18/18 at 09:00; Status DC Dexamethasone (Decadron) 2 mg Q12H PO Last administered on 07/15/18at 21:09; Start 07/13/18 at 21:00; Stop 07/15/18 at 21:55; Status DC Dexamethasone (Decadron) 4 mg Q12H PO Last administered on 07/13/18at 08:35; Start 07/09/18 at 21:00; Stop 07/13/18 at 20:59; Status DC Dextrose (Dextrose 50%) 25 ml ASDIRECTED PRN IV SEE LABEL COMMENTS; Start 07/09/18 at 21:00 Famotidine (Pepcid) 10 mg BID PO Last administered on 07/30/18at 10:36; Start 07/12/18 at 15:00 Febuxostat (Uloric) 120 mg DAILY PO Last administered on 07/30/18 10:33; Start 07/10/18 at 09:00 Fidaxomicin (Dificid) 200 mg BID PO Last administered on 07/25/18 21:55; Start 07/16/18 at 11:45; Stop 07/25/18 at 21:01; Status DC Fidaxomicin (Dificid) 200 mg BID PO ; Start 07/30/18 at 21:00; Status UNV Folic Acid (Folic Acid) 1 mg DAILY PO Last administered on 07/30/18 10:33; Start 07/16/18 at 09:00 Fosfomycin Tromethamine (Monurol) 3 gm Q2D PO Last administered on 07/24/18 08:52; Start 07/22/18 at 09:00; Stop 07/24/18 at 12:00; Status DC Gemfibrozil (Lopid) 600 mg BID PO Last administered on 07/30/18at 10:32; Start 07/09/18 at 21:00 Glucagon (Glucagon) 1 mg ASDIRECTED PRN SC SEE LABEL COMMENTS; Start 07/09/18 at 21:00 Glucose (Glucose) 16 GM ASDIRECTED PRN PO SEE LABEL COMMENTS; Start 07/09/18 at 21:00 Guaifenesin (Robitussin Tab) 400 mg TID PO Last administered on 07/29/18at 21:48; Start 07/10/18 at 09:00 Guaifenesin (Robitussin Tab) 400 mg TID PO ; Start 07/14/18 at 21:00; Stop 07/14/18 at 21:00; Status DC Heparin Sodium (Porcine) (Heparin) 5,000 units Q8H SQ Last administered on 07/28/18 05:29; Start 07/09/18 at 22:00; Stop 07/28/18 at 10:00; Status DC Home Med (Med Rec Complete!) ASDIRECTED XX ; Start 07/09/18 at 23:00; Stop 07/09/18 at 23:00; Status DC Hydralazine HCl (Apresoline) 25 mg Q6H PO Last administered on 07/23/18at 05:52; Start 07/20/18 at 12:00; Stop 07/23/18 at 11:52; Status DC Hydralazine HCl (Apresoline) 50 mg Q6H PO Last administered on 07/30/18at 14:33; Start 07/23/18 at 12:00 Insulin Detemir (Levemir Insulin) 5 units QHS SC ; Start 07/30/18 at 21:00 Insulin Detemir (Levemir Insulin) 10 units QHS SC Last administered on 07/16/18at 21:49; Start 07/15/18 at 21:00; Stop 07/19/18 at 13:01; Status DC Insulin Detemir (Levemir Insulin) 20 units QHS SC Last administered on 07/14/18at 22:04; Start 07/09/18 at 21:00; Stop 07/15/18 at 14:20; Status DC Insulin Human Lispro (HumaLOG INSULIN) SEE PROTOCOL TABLE AC SC Last administered on 07/27/18at 07:52; Start 07/10/18 at 07:30; Stop 07/27/18 at 11:01; Status DC Lactobacillus Acidophilus (Bacid) 1 ea BIDWM PO Last administered on 07/14/18at 08:59; Start 07/11/18 at 08:00; Stop 07/14/18 at 13:09; Status DC Lactobacillus Acidophilus (Bacid) 1 ea TID PO ; Start 07/30/18 at 16:00; Stop 07/30/18 at 16:00; Status DC Lactobacillus Acidophilus (Bacid) 2 ea BIDWM PO Last administered on 07/30/18at 10:33; Start 07/14/18 at 18:00 Lidocaine (Lidoderm Patch) 1 patch DAILY TD Last administered on 07/30/18at 10:41; Start 07/10/18 at 09:00 Lorazepam (Ativan) 2 mg Q6H PRN IV SEIZURES; Start 07/10/18 at 02:30; Stop 07/22/18 at 12:01; Status DC Magnesium Hydroxide (Milk Of Magnesia) 30 ml DAILYPRN PRN PO CONSTIPATION; Start 07/09/18 at 21:15; Stop 07/20/18 at 14:26; Status DC Menthol/Methyl Salicylate (Bengay Cream) 1 dose BID TOP ; Start 07/30/18 at 09:00 Metronidazole (Flagyl) 500 mg Q8H PO Last administered on 07/11/18at 05:01; Start 07/11/18 at 04:00; Stop 07/11/18 at 07:12; Status DC Miscellaneous (Unresolved Clarification Entry) SEE LABEL COMMENTS DAILY XX ; Start 07/21/18 at 09:00; Stop 07/22/18 at 07:12; Status DC Miscellaneous (Unresolved Clarification Entry) SEE LABEL COMMENTS DAILY XX ; Start 07/22/18 at 09:00; Stop 07/23/18 at 04:46; Status DC Non-Formulary Medication ( See Comment Field Below ) REMOVE LIDODERM PATCH DAILY@21 XX Last administered on 07/29/18at 21:00; Start 07/09/18 at 21:00 Omeprazole (PriLOSEC) 40 mg QHS PO Last administered on 07/11/18at 22:26; Start 07/09/18 at 21:00; Stop 07/12/18 at 14:39; Status DC Ondansetron HCl (Zofran) 4 mg Q6HP PRN PO NAUSEA Last administered on 07/28/18 08:47; Start 07/09/18 at 21:15 Phenytoin (Dilantin Chewable) 125 mg Q8H PO Last administered on 07/12/18at 05:49; Start 07/09/18 at 22:00; Stop 07/12/18 at 10:30; Status DC Phenytoin (Dilantin Chewable) 150 mg Q8H PO Last administered on 07/19/18at 13:01; Start 07/12/18 at 14:00; Stop 07/19/18 at 15:37; Status DC Phenytoin (Dilantin Chewable) 175 mg Q8H PO Last administered on 07/30/18 14:28; Start 07/19/18 at 22:00 Potassium Chloride (Micro-K Extencaps) 20 meq DAILY PO Last administered on 07/17/18at 10:19; Start 07/12/18 at 09:00; Stop 07/17/18 at 11:48; Status DC Prednisone (Deltasone) 5 mg DAILY PO ; Start 08/09/18 at 09:00; Stop 08/11/18 at 09:01 Prednisone (Deltasone) 10 mg BID PO ; Start 08/03/18 at 09:00; Stop 08/05/18 at 21:01 Prednisone (Deltasone) 10 mg DAILY PO ; Start 08/06/18 at 09:00; Stop 08/08/18 at 09:01 Prednisone (Deltasone) 15 mg BID PO ; Start 07/31/18 at 09:00; Stop 08/02/18 at 21:01 Prednisone (Deltasone) 20 mg BID PO Last administered on 07/25/18 08:47; Start 07/23/18 at 21:00; Stop 07/25/18 at 10:00; Status DC Prednisone (Deltasone) 20 mg BID PO Last administered on 07/30/18 10:37; Start 07/28/18 at 09:00; Stop 07/30/18 at 21:01 Ramelteon (Rozerem) 8 mg QHS PO Last administered on 07/29/18 21:48; Start 07/28/18 at 21:00 Senna/Docusate Sodium (Senokot S) 1 tab BID PO Last administered on 07/11/18at 22:23; Start 07/10/18 at 09:00; Stop 07/12/18 at 14:39; Status DC Sodium Bicarbonate 150 meq/Sterile Water 1,150 ml @ 60 mls/hr [id number] IV Last administered on 07/22/18at 17:42; Start 07/20/18 at 09:00; Stop 07/23/18 at 04:19; Status DC Sodium Bicarbonate 150 meq/Sterile Water 1,150 ml @ 60 mls/hr [id number] IV ; Start 07/23/18 at 08:00; Stop 07/23/18 at 08:00; Status DC Tamsulosin HCl (Flomax) 0.4 mg QHS PO Last administered on 07/29/18 21:48; Start 07/09/18 at 21:00 Torsemide (Demadex) 20 mg DAILY PO Last administered on 07/29/18 09:25; Start 07/28/18 at 12:00; Stop 07/30/18 at 09:40; Status DC Torsemide (Demadex) 50 mg BID@09,17 PO ; Start 07/10/18 at 09:00; Stop 07/10/18 at 09:24; Status DC Trazodone HCl (Desyrel) 25 mg QHSP PRN PO INSOMNIA Last administered on 07/29/18 23:17; Start 07/09/18 at 21:00 Vancomycin HCl (First-Vancomycin 50(Firvanq)- 250mg/5ml) 125 mg Q6H PO Last administered on 07/16/18at 05:44; Start 07/11/18 at 06:00; Stop 07/16/18 at 11:37; Status DC Zinc Oxide (Boudreauxs Butt Paste) sacrum BID TOP ; Start 07/10/18 at 09:00; Stop 07/10/18 at 13:02; Status DC ESTRELLITA STANTON MD Jul 30, 2018 15:48
[2018-07-30] MEDS ORDERED: LACTOBACILLUS ACIDOPHILUS CAP (BACID) PO SCH (16:00)
--- NOTE | 2018-07-30 16:42 | REP ---
RENAL ULTRASOUND: Real-time sonographic evaluation of the kidneys performed. The kidneys are normal in size and echotexture, the right kidney measuring 10.4 x 6.3 x 5.9 cm and left kidney 11.4 x 4.9 x 6.7 cm. There is no hydronephrosis bilaterally. No renal mass is seen. Incidental note is made of multiple gallstones in the gallbladder. The urinary bladder is not well distended and not well evaluated. IMPRESSION: No hydronephrosis. Incidental note made of multiple gallstones in the gallbladder. Electronically Signed by Torres Reyes MD 07/30/2018 07:40 P
--- NOTE | 2018-07-30 16:56 | IPN ---
DATE: 07/30/2018 Christopher is doing well, except that this morning when he woke up he had foul-smelling urine, and it was very cloudy, so urinalysis was sent. He denied any dysuria, pelvic pain, hematuria, or flank pain. No fever or chills. LABORATORY DATA: White count is 5.3, hemoglobin 8.2, hematocrit 25.3, platelets 277, 70% neutrophils, 18% lymphocytes, 7% monocytes. Sodium 140, potassium 3.8, chloride 107, bicarbonate 26, BUN 21, creatinine 1.4, up from 1.2, glucose 222, calcium 7.8, phosphorus 3.1, albumin 2.1. Urine culture is pending. Urinalysis had many white cells +3 leukocyte esterase, 17 red cells. IMPRESSION: 1. Urinary tract infection with Escherichia (E) coli. Culture was positive on July 18 and . The patient was treated with three doses of fosfomycin over 1 week. Seems to have recurrent symptoms. 2. History of Clostridium (C) difficile colitis. The patient will be restarted on fidaxomicin to prevent recurrence of C. difficile. PLAN: Start amoxicillin 500 mg by mouth three times a day for 10-14 days and fidaxomicin 200 mg every other day to prevent recurrent C. difficile.
[2018-07-30] MEDS ORDERED: AMPICILLIN SOD 500 MG in D5W 50 ML IV SCH (18:00)
[2018-07-30 20:00] VITALS: BP 160/78
[2018-07-30] MEDS ORDERED: DEXTROSE 50% 50 ML SYRINGE IV PRN (20:00)
[2018-07-30] MEDS ORDERED: GLUCOSE 4 GM CHEW TABLET PO PRN (20:00)
[2018-07-30] MEDS ORDERED: GLUCAGON FOR INJ 1 MG VIAL (J1610) SC PRN (20:00)
[2018-07-30] MEDS: **NOTE PATIENT COMMENT** MISC XX SCH (22:45)
[2018-07-30] MEDS: ACETAMINOPHEN 500 MG TAB PO SCH (22:46)
[2018-07-30] MEDS: FIDAXOMICIN 200 MG TAB (DIFICID) PO SCH (22:48)
[2018-07-30] MEDS: RAMELTEON 8 MG TAB (ROZEREM) PO SCH (22:49)
[2018-07-30] MEDS: LEVEMIR (INSULIN DETEMIR) 1 UNITS/0.01ML SC SCH (22:55)
[2018-07-30] MEDS: TAMSULOSIN 0.4 MG CAP PO SCH (22:55)
[2018-07-31 06:00] VITALS: BP 136/92
[2018-07-31] MEDS: AMOXICILLIN 500 MG CAP PO SCH ×3 (06:50→22:25)
[2018-07-31] MEDS: PHENYTOIN 50 MG CHEW TABLET PO SCH ×3 (06:50→22:27)
[2018-07-31] MEDS: **hydrALAZINE** 50 MG TAB PO SCH ×4 (06:51→22:26)
[2018-07-31] MEDS: IPRATROPIUM 0.5MG/ALBUTEROL 2.5MG INH SOL UD 3ML (DUONEB)(J7620) NEB SCH ×2 (07:28→20:36)
--- NOTE | 2018-07-31 07:47 | IPN ---
DATE OF SERVICE: 07/30/2018 SUBJECTIVE: Patient was seen and examined at the bedside today morning. The patient reports that the right wrist gout pain is getting better. He still reports very foul smelling urine which is very cloudy. He denies any more diarrhea. There is a slight bump in his creatinine today as compared with yesterday. It has bumped up from 1.2 to 1.4. The patient was started on torsemide yesterday for lower extremity edema. OBJECTIVE: VITAL SIGNS: Temperature 97.2 degrees Fahrenheit, blood pressure 148/60, pulse 70, respiratory rate of 17, saturating 95% on room air. INTAKE AND OUTPUT: Urine output recorded as 1.7 liters yesterday and 900 mL so far today since overnight. Weight on the bed scale is 96.7 kg. PHYSICAL EXAMINATION: GENERAL: Patient is awake, alert, oriented times three, sitting up in the bed, in no apparent distress. HEAD/NECK: Extraocular muscles intact. Pupils equal, round, and reactive to light. Mucous membranes are moist. Neck is supple. There is no jugular venous distention (JVD). CARDIOVASCULAR: S1 and S2. Regular rate. Trace edema of the bilateral lower extremities. RESPIRATORY: Chest is clear to auscultation bilaterally. Bilaterally equal air entry. No rales or rhonchi. ABDOMEN: Soft, positive bowel sounds. Nontender. No organomegaly. MUSCULOSKELETAL: No clubbing or cyanosis. Pulses are 2+. Edema of the bilateral lower extremities is better today as compared with yesterday. CENTRAL NERVOUS SYSTEM (CLINICAL DIETITIAN): No focal deficit. Power is 5/5 in all extremities. LAB REVIEW: CBC showed a WBC of 5.3, hemoglobin 8.2, platelets 277. Urinalysis done today showed cloudy urine with 2+ protein, 1+ blood, 3+ leukocyte esterase, too numerous to count white blood cells. BMP showed sodium 140, potassium 3.8, chloride 107, bicarbonate 26, BUN 21, creatinine 1.4 and it was 1.2 on 07/28/2018. CURRENT INPATIENT MEDICATIONS: Patient's medications were all reviewed by me. He continues to be on Dificid 200 mg by mouth twice a day. Prednisone is being tapered down. I have stopped his torsemide dose. ASSESSMENT AND PLAN: 1. Acute kidney injury superimposed on chronic kidney disease. There is slight bump in his creatinine today as compared with two days ago. He was given a dose of torsemide for lower extremity edema. I am holding the diuretic at this point. 2. Lower extremity edema. Edema is better today as compared with yesterday, however, his creatinine bumped up with use of diuretics. I am holding the diuretic at this point. 3. Gout in the right wrist. His prednisone is being tapered down. He continues to be on Uloric. Patient will be given KRYSTEXXA infusions once he is discharged from the hospital. 4. Urinary tract infection. Patient has positive cultures for E. Coli on the urine cultures. He was treated with fosfomycin, but he reports a persistent foul smelling urine and urine is cloudy. I requested infectious disease to see the patient again. 5. History of Clostridium difficile colitis. The patient's diarrhea improved after Dificid. He is being restarted on Dificid while he is being treated for urinary tract infection. The rest of the management is as per infectious disease.
[2018-07-31] MEDS: LACTOBACILLUS ACIDOPHILUS CAP (BACID) PO SCH ×2 (08:03→17:58)
[2018-07-31] MEDS: HumaLOG INSULIN (NovoLOG) PER UNIT SC SCH ×3 (08:04→18:00)
[2018-07-31] MEDS: predniSONE 5 MG TAB PO SCH ×2 (08:24→22:27)
[2018-07-31] MEDS: ASPIRIN 81 MG ENTERIC TAB PO SCH (08:25)
[2018-07-31] MEDS: GEMFIBROZIL 600 MG TAB PO SCH ×2 (08:25→22:25)
[2018-07-31] MEDS: FIDAXOMICIN 200 MG TAB (DIFICID) PO SCH ×2 (08:25→22:25)
[2018-07-31] MEDS: FAMOTIDINE 20 MG TAB PO SCH ×2 (08:25→22:26)
[2018-07-31] MEDS: amLODIPine 10 MG TAB PO SCH (08:25)
[2018-07-31] MEDS: FOLIC ACID 1 MG TAB PO SCH (08:26)
[2018-07-31] MEDS: FEBUXOSTAT 40 MG TABLET (ULORIC) PO SCH (08:26)
[2018-07-31] MEDS: CARVedilol 12.5 MG TAB PO SCH ×2 (08:26→22:24)
[2018-07-31] MEDS: ANALGESIC BALM CRM 120 GM TOP SCH ×2 (08:27→22:28)
[2018-07-31] MEDS: guaiFENesin 200 MG TAB PO SCH ×3 (08:27→22:29)
[2018-07-31] MEDS: CALCITRIOL 0.25 MCG CAP (S0169) PO SCH (08:27)
[2018-07-31] MEDS: LIDOCAINE 5% (LIDODERM) PATCH TD SCH (08:28)
[2018-07-31] MEDS: DIAPER RELIEF PASTE (DESITIN) 60GM TOP SCH ×2 (09:00→22:28)
[2018-07-31 10:56] LABS: BASO # 0.1 10^3/uL (0.0-0.2); BASO % 0.9 % (0.0-1.0); EOS # 0.2 10^3/uL (0.0-0.50); EOS % 3.1 % (0.0-3.0); HEMATOCRIT 27.5 % (42.0-52.0); HEMOGLOBIN 8.9 g/dl (13.5-17.5); LYMPH # 1.3 10^3/uL (1.5-4.5); LYMPH % 16.8 % (24.0-44.0); MEAN CORPUSCULAR HEMOGLOBIN 28.7 pg (27.0-33.0); MEAN CORPUSCULAR HGB CONC 32.4 g/dl (32.0-36.5); MEAN CORPUSCULAR VOLUME 88.7 fl (80.0-96.0); MONO # 0.6 10^3/uL (0.0-0.8); NEUTROPHILS # 5.4 10^3/uL (1.8-7.7); NEUTROPHILS % 70.9 % (36.0-66.0); PLATELET COUNT, AUTOMATED 421 10^3/uL (150-450); WHITE BLOOD COUNT 7.6 10^3/uL (4.0-10.0)
[2018-07-31 11:14] LABS: ALBUMIN 2.5 GM/DL (3.2-5.2); CALCIUM LEVEL 8.2 MG/DL (8.8-10.2); CREATININE FOR GFR 1.49 MG/DL (0.70-1.30); GLOMERULAR FILTRATION RATE 50.1 (>49); PHOSPHORUS LEVEL 3.5 MG/DL (2.5-4.9); POTASSIUM SERUM 4.2 MEQ/L (3.5-5.1)
[2018-07-31 14:00] VITALS: BP 140/70
[2018-07-31 20:00] VITALS: BP 152/80
[2018-07-31] MEDS: LEVEMIR (INSULIN DETEMIR) 1 UNITS/0.01ML SC SCH (22:22)
[2018-07-31] MEDS: ACETAMINOPHEN 500 MG TAB PO SCH (22:23)
[2018-07-31] MEDS: RAMELTEON 8 MG TAB (ROZEREM) PO SCH (22:25)
[2018-07-31] MEDS: TAMSULOSIN 0.4 MG CAP PO SCH (22:26)
[2018-07-31] MEDS: **NOTE PATIENT COMMENT** MISC XX SCH (22:29)
[2018-08-01 06:00] VITALS: BP 110/72
[2018-08-01] MEDS: **hydrALAZINE** 50 MG TAB PO SCH ×3 (06:00→17:17)
[2018-08-01] MEDS: AMOXICILLIN 500 MG CAP PO SCH ×3 (06:20→21:00)
[2018-08-01] MEDS: PHENYTOIN 50 MG CHEW TABLET PO SCH ×3 (06:21→21:00)
[2018-08-01] MEDS: IPRATROPIUM 0.5MG/ALBUTEROL 2.5MG INH SOL UD 3ML (DUONEB)(J7620) NEB SCH ×2 (07:15→19:46)
[2018-08-01] MEDS: FEBUXOSTAT 40 MG TABLET (ULORIC) PO SCH (08:23)
[2018-08-01] MEDS: FAMOTIDINE 20 MG TAB PO SCH ×2 (08:24→20:56)
[2018-08-01] MEDS: FOLIC ACID 1 MG TAB PO SCH (08:24)
[2018-08-01] MEDS: CARVedilol 12.5 MG TAB PO SCH ×2 (08:25→20:54)
[2018-08-01] MEDS: LACTOBACILLUS ACIDOPHILUS CAP (BACID) PO SCH ×2 (08:25→17:17)
[2018-08-01] MEDS: ASPIRIN 81 MG ENTERIC TAB PO SCH (08:25)
[2018-08-01] MEDS: CALCITRIOL 0.25 MCG CAP (S0169) PO SCH (08:25)
[2018-08-01] MEDS: amLODIPine 10 MG TAB PO SCH (08:25)
[2018-08-01] MEDS: GEMFIBROZIL 600 MG TAB PO SCH ×2 (08:26→20:55)
[2018-08-01] MEDS: FIDAXOMICIN 200 MG TAB (DIFICID) PO SCH ×2 (08:26→20:55)
[2018-08-01] MEDS: guaiFENesin 200 MG TAB PO SCH ×3 (08:26→20:56)
[2018-08-01] MEDS: predniSONE 5 MG TAB PO SCH ×2 (08:27→20:54)
[2018-08-01] MEDS: HumaLOG INSULIN (NovoLOG) PER UNIT SC SCH ×3 (08:27→17:19)
[2018-08-01] MEDS: ANALGESIC BALM CRM 120 GM TOP SCH ×2 (08:28→20:57)
[2018-08-01] MEDS: LIDOCAINE 5% (LIDODERM) PATCH TD SCH (08:28)
[2018-08-01 09:00] VITALS: BP 140/90
[2018-08-01] MEDS: DIAPER RELIEF PASTE (DESITIN) 60GM TOP SCH ×2 (09:00→20:57)
[2018-08-01 14:00] VITALS: BP 138/74
[2018-08-01 20:00] VITALS: BP 164/78
[2018-08-01] MEDS: TAMSULOSIN 0.4 MG CAP PO SCH (20:55)
[2018-08-01] MEDS: ACETAMINOPHEN 500 MG TAB PO SCH (20:56)
[2018-08-01] MEDS: RAMELTEON 8 MG TAB (ROZEREM) PO SCH (20:56)
[2018-08-01] MEDS: LEVEMIR (INSULIN DETEMIR) 1 UNITS/0.01ML SC SCH (20:57)
[2018-08-01] MEDS: **NOTE PATIENT COMMENT** MISC XX SCH (20:58)
[2018-08-02] MEDS: AMOXICILLIN 500 MG CAP PO SCH (05:13)
[2018-08-02] MEDS: PHENYTOIN 50 MG CHEW TABLET PO SCH ×3 (05:13→21:42)
[2018-08-02] MEDS: **hydrALAZINE** 50 MG TAB PO SCH ×5 (05:14→23:44)
[2018-08-02 06:00] VITALS: BP 152/86
[2018-08-02] MEDS: IPRATROPIUM 0.5MG/ALBUTEROL 2.5MG INH SOL UD 3ML (DUONEB)(J7620) NEB SCH ×2 (07:45→21:09)
[2018-08-02] MEDS: LIDOCAINE 5% (LIDODERM) PATCH TD SCH (09:04)
[2018-08-02] MEDS: GEMFIBROZIL 600 MG TAB PO SCH ×2 (09:04→21:42)
[2018-08-02] MEDS: HumaLOG INSULIN (NovoLOG) PER UNIT SC SCH ×3 (09:04→18:16)
[2018-08-02] MEDS: CALCITRIOL 0.25 MCG CAP (S0169) PO SCH (09:05)
[2018-08-02] MEDS: FEBUXOSTAT 40 MG TABLET (ULORIC) PO SCH (09:05)
[2018-08-02] MEDS: FOLIC ACID 1 MG TAB PO SCH (09:05)
[2018-08-02] MEDS: ASPIRIN 81 MG ENTERIC TAB PO SCH (09:05)
[2018-08-02] MEDS: FAMOTIDINE 20 MG TAB PO SCH ×2 (09:05→21:43)
[2018-08-02] MEDS: guaiFENesin 200 MG TAB PO SCH ×3 (09:05→21:42)
[2018-08-02] MEDS: amLODIPine 10 MG TAB PO SCH (09:06)
[2018-08-02] MEDS: LACTOBACILLUS ACIDOPHILUS CAP (BACID) PO SCH ×2 (09:06→18:15)
[2018-08-02] MEDS: predniSONE 5 MG TAB PO SCH ×2 (09:06→21:42)
[2018-08-02] MEDS: FIDAXOMICIN 200 MG TAB (DIFICID) PO SCH ×2 (09:07→21:43)
[2018-08-02] MEDS: CARVedilol 12.5 MG TAB PO SCH ×2 (09:07→21:43)
[2018-08-02] MEDS: ANALGESIC BALM CRM 120 GM TOP SCH ×2 (09:07→21:44)
[2018-08-02] MEDS: DIAPER RELIEF PASTE (DESITIN) 60GM TOP SCH ×2 (09:08→21:00)
[2018-08-02 11:38] LABS: CALCIUM LEVEL 8.2 MG/DL (8.8-10.2); CREATININE FOR GFR 1.57 MG/DL (0.70-1.30); GLOMERULAR FILTRATION RATE 47.1 (>49); PHENYTOIN (DILANTIN) 14.3 UG/ML (10.0-20.0); POTASSIUM SERUM 4.4 MEQ/L (3.5-5.1)
[2018-08-02] MEDS: NITROFURANTOIN (MACROBID) 100 MG CAP PO SCH ×2 (13:47→21:43)
[2018-08-02 14:00] VITALS: BP 147/70
--- NOTE | 2018-08-02 14:06 | IPNPDOC ---
Date Seen The patient was seen on 08/02/18. Progress Note HPI: 68M pnh HTN and DM, left carotid artery stenosis s/p stenting, gout, CAD, ENEDINA, CKD3, recent GIB who initially presented to [facility] on 06/29/18 with reported seizures, arrived with a Arnav Coma Scale of 3, was given loading dose of Dilantin and intubated. CTH showed a right frontal mass so he was transferred to [facility] in [place], [place] for further work-up. At [facility] MRI on 06-30-18 showed a 3cm by 3cm right frontal lobe lesion with a hemorrhagic component, possible neoplam or less likley transformation of an infarction. He was found to have leukocytosis which was thought to be from seizure activity and remained afebrile. He had significant hyponatremia, acute on chronic CKD and elevated blood sugars managed with insulin. He was evaluated by neurosurgery and had a resection of his right frontal mass on 07/04/18 after which he was maintained on a Decadron taper and continued on Dilantin for seizure prophylaxis. He was evaluated by therapy and noted to have significant impairment in his ADLs and gait, and was deemed medically appropriate for transfer to [facility]U on 07-09-18, as per Dr Young, with pathology pending from his recent tumor resection. Pt denies any loose stools. Denies abdominal pain, N/V. OOB to chair. Anxious for d/c. Denies any fevers, chills, weakness, fatigue, STEPHENS, CP, palpitations. PE: GEN: 68yoM, appears stated age. Alert and oriented x 3. HEENT: Normocephalic, healing craniotomy scar. Sclera are nonicteric. Conjunctiva without injection. No facial asymmetry. Moist mucous membranes. CHEST: Regular rate and rhythm, +S1, +S2 LUNGS: CTA. No wheezes, rales, or rhonchi appreciated. ABD: Round, soft, non-tender, non-distended. +Bowel sounds throughout. EXT: Tr lower extremity edema appreciated. SKIN: [place], dry, warm. No rashes. A&P: 1. Frontal cranial mass status post resection at [facility] in [facility] on 07/05/2018. Mgmt as per ARU. PT/OT/ST as per ARU Pain control as per ARU DVT prophylaxis as per ARU, SQ Heparin. Outpt F/U with Neurosurgery. Continue on Decadron taper as per Neurosurgery. Continue on Dilantin seizure prophylaxis as per Neurosurgery. Dilantin dose adjusted as per attending to 175 Q8h, Dilantin level 08/02/18 14.3. Pt seen by Neurology. Outpt F/U planned. Seizure precautions. Slid OOB 07/14/18- CT head completed with no acute changes. Repeat CT 07/20/18 with no acute changes. 2. Recent C diff. PO Vanco changed to Dificid 07/16/18. Dificid x 10d completed 07/25/18. Continue Bacid 2 tab BID. Dificid Q2 days currently to prevent recurrent C diff while on antibiotic for UTI. 3. Hypokalemia. S/P po supplement . Monitor. 4. Hypomagnesemia. S/P mag run. Continue to monitor mag level. 5. Chronic kidney disease3. Nephrology following. Demadex 20 mg daily ON HOLD. Monitor. 6. Gout. On Uloric. 7. Hypertension. Norvasc 10 mg daily, carvedilol 50mg mg BID. Hydralazine 25 mg Q6 with hold parameter. Monitor. 8. Coronary artery disease. ASA 9. Carotid stenosis, status post endarterectomy. 10. Congestive heart failure. Demadex ON HOLD Nephrology following. 10. Diabetes. Levemir d/cd 07/19/18, no further hypoglycemia. SSI Monitor 11. Benign prostatic hypertrophy (BPH). Flomax. 13. Anemia. Normocytic. Likely related to chronic disease/CKD. hgb 8.2. Fe studies, B12, folate 07/14/18. Folate supplement added. PRBC x 2 units 07/21. Monitor need for transfusion. 14. Recurrent UTI. E Coli. UC 07/18/18 pansensitive E coli. UC 07/20 E coli Pt treated with Fosfomycin x 3 doses completed 07/24/18 as per ID. Amoxicillin changed to po Nitrofurantoin today related to sensitivities. ID following. 15. GI prophylaxis. HOLD PPI. Continue pepcid. VS, I&O, 24H, Fishbone Vital Signs/I&O Vital Signs Date Time Temp Pulse Resp B/P (MAP) Pulse Ox O2 Delivery O2 Flow Rate FiO2 08/02/18 13:44 145/72 08/02/18 09:06 72 08/02/18 06:00 97.8 17 99 I&O- Last 24 Hours up to 6 AM 08/02/18 06:00 Intake Total 480 ml Balance 480 ml Laboratory Data 24H LABS Laboratory Tests 2 08/01/18 17:08: Bedside Glucose (Misc Panel) 166H 08/01/18 20:12: Bedside Glucose (Misc Panel) 150H 08/02/18 05:04: Bedside Glucose (Misc Panel) 199H 08/02/18 10:43: Anion Gap 5L, Glomerular Filtration Rate 47.1L, Blood Urea Nitrogen 25H, Creatinine 1.57H, Sodium Level 141, Potassium Level 4.4, Chloride Level 107, Carbon Dioxide Level 29, Calcium Level 8.2L, Phenytoin (Dilantin) Level 14.3 08/02/18 11:25: Bedside Glucose (Misc Panel) 82 CBC/BMP Laboratory Tests 08/02/18 10:43 Calcium Level 8.2 L Microbiology Microbiology 07/30/18 Urine Culture - Final, Complete Escherichia Coli Saadia Campbell Aug 02, 2018 14:06
--- NOTE | 2018-08-02 16:06 | IPN ---
DATE: 07/31/2018 SUBJECTIVE: The patient was seen and examined at the bedside today morning. He is afebrile and hemodynamically stable. He reports that his leg swelling is better today as compared with yesterday. His right wrist gout pain is getting better. Renal function is stable with a creatinine of 1.4 today as compared with yesterday. OBJECTIVE: VITAL SIGNS: Temperature is 97.8 degrees Fahrenheit, blood pressure 140/70, pulse is 74, respiratory rate of 17, saturating 99% on room air. INTAKE AND OUTPUT: Urine output recorded is 1.2 liters yesterday and 1 liter so far today since overnight. Weight in the bed scale is not available. PHYSICAL EXAMINATION: GENERAL: The patient is awake, alert, oriented times three, sitting up in the bed, in no apparent distress. HEAD AND NECK: Extraocular muscles intact. Pupils equally round and reactive to light. Mucous membranes are moist. Neck is supple. There is no jugular venous distention (JVD). CARDIOVASCULAR: S1, S2. Regular rate. Trace edema of the bilateral lower extremities. RESPIRATORY: Chest is clear to auscultation bilaterally. Bilaterally equal air entry. No rales or rhonchi. ABDOMEN: Soft, positive bowel sounds. Nontender. No organomegaly. MUSCULOSKELETAL: No clubbing or cyanosis. Pulses are 2+. CENTRAL NERVOUS SYSTEM (GO GO DANCER): No focal deficit. Power is 5/5 in bilateral upper extremities. LABORATORY REVIEW: CBC showed a WBC of 7.6, hemoglobin 8.9, platelets are 420. BMP showed sodium 140, potassium 4.2, chloride 106, bicarbonate 29, BUN 21, creatinine is 1.49, it was 1.44 yesterday, calcium is 8.2, phosphorus is 3.5. MICROBIOLOGY: Urine culture from 07/30/2018 is pending. CURRENT INPATIENT MEDICATIONS: The patient's medications were all reviewed by me. He has been started on amoxicillin 500 mg by mouth every eight hours yesterday and he has been restarted on Dificid 200 mg by mouth twice a day. No other change in the medications today as compared with yesterday. Prednisone dose is being tapered down. ASSESSMENT AND PLAN: 1. Acute kidney injury superimposed on chronic kidney disease. The patient's renal function is stable. Creatinine is 1.4 since yesterday. Small trial of diuretic was tried but his creatinine bumped up so diuretics have been stopped. 2. Lower extremity edema. As mentioned above, the patient was given a diuretic dose which helped with the edema but his creatinine bumped up. I would only given him diuretic as needed for worsening edema only. 3. Gout in the right wrist. Prednisone dose is being tapered down. Continue current dose of Uloric. 4. Urinary tract infection. The patient was seen by infectious disease again. I appreciate their recommendations. He has been started on amoxicillin and Dificid again.
[2018-08-02] MEDS: LEVEMIR (INSULIN DETEMIR) 1 UNITS/0.01ML SC SCH (21:00)
[2018-08-02] MEDS: **NOTE PATIENT COMMENT** MISC XX SCH (21:00)
[2018-08-02 21:25] VITALS: BP 178/80
[2018-08-02] MEDS: TAMSULOSIN 0.4 MG CAP PO SCH (21:42)
[2018-08-02] MEDS: RAMELTEON 8 MG TAB (ROZEREM) PO SCH (21:43)
[2018-08-02] MEDS: ACETAMINOPHEN 500 MG TAB PO SCH (21:44)
--- NOTE | 2018-08-02 22:00 | IPN ---
DATE: 08/01/2018 SUBJECTIVE: The patient was seen and examined this morning at the bedside, sitting out of bed to the chair. He complains of gout flare in his right foot. He also complains of some mild dysuria this morning. Intake yesterday was 600. Urine output yesterday was 1000. Weight on the bed scale today is 95.8 kg, which is decreased from prior. General: The patient is seen sitting out of bed, awake, alert, oriented, comfortable, in no acute distress. Extraocular muscles are intact. Tongue is moist. Neck is supple. Jugular veins are not elevated. Cardiac: S1, S2, regular rate. Trace edema of the ankles bilaterally. Lungs are clear to auscultation. There is no rales or rhonchus. Abdomen is soft and nontender. Neurologic: No focal deficits. Oriented and interactive. Skin: Normal turgor and temperature. LABORATORY: No new labs for today with the exception of glucose of 150. Microbiology: Urine culture 07/30/2018 - Escherichia (E) coli. INPATIENT MEDICATIONS: Reviewed by myself, and he continues on amoxicillin 500 mg by mouth every 8 hours and Dificid 200 mg by mouth twice a day. His remainder of medications are unchanged from prior. PROBLEMS: 1. Chronic kidney disease stage IV underlying with better renal function over the course of this admission. His diuretics remain on hold. He can receive torsemide as needed, depending on his volume status. 2. Gout flare. The patient continues on prednisone taper. He continues on high dose Uloric, and the plan is for Krystexxa infusions as an outpatient. 3. Escherichia coli urinary tract infection (UTI). Infectious disease (ID) is treating him with amoxicillin. The patient is symptomatically improving. 4. Recent Clostridium difficile colitis. His diarrhea improved with Dificid, and he is back on Dificid while he is being treated for the UTI. 5. Anemia. Hemoglobin 8.9. Labs show iron deficiency. I will plan for Venofer infusion prior to discharge.
[2018-08-03 06:00] VITALS: BP 180/84
[2018-08-03] MEDS: PHENYTOIN 50 MG CHEW TABLET PO SCH ×3 (06:22→21:54)
[2018-08-03] MEDS: **hydrALAZINE** 50 MG TAB PO SCH (06:22)
[2018-08-03] MEDS: IPRATROPIUM 0.5MG/ALBUTEROL 2.5MG INH SOL UD 3ML (DUONEB)(J7620) NEB SCH ×2 (07:20→20:00)
[2018-08-03 07:31] LABS: HEMATOCRIT 25.2 % (42.0-52.0); HEMOGLOBIN 8.1 g/dl (13.5-17.5); MEAN CORPUSCULAR HEMOGLOBIN 28.5 pg (27.0-33.0); MEAN CORPUSCULAR HGB CONC 32.1 g/dl (32.0-36.5); MEAN CORPUSCULAR VOLUME 88.7 fl (80.0-96.0); PLATELET COUNT, AUTOMATED 313 10^3/uL (150-450); RED BLOOD COUNT 2.84 10^6/uL (4.30-6.10); WHITE BLOOD COUNT 4.5 10^3/uL (4.0-10.0)
[2018-08-03 07:59] LABS: CALCIUM LEVEL 8.2 MG/DL (8.8-10.2); CREATININE FOR GFR 1.68 MG/DL (0.70-1.30); GLOMERULAR FILTRATION RATE 43.6 (>49); POTASSIUM SERUM 4.2 MEQ/L (3.5-5.1)
[2018-08-03] MEDS: LIDOCAINE 5% (LIDODERM) PATCH TD SCH ×2 (08:43→09:00)
[2018-08-03] MEDS: HumaLOG INSULIN (NovoLOG) PER UNIT SC SCH ×3 (08:44→17:19)
[2018-08-03] MEDS: FIDAXOMICIN 200 MG TAB (DIFICID) PO SCH ×2 (08:45→21:52)
[2018-08-03] MEDS: guaiFENesin 200 MG TAB PO SCH ×3 (08:45→21:52)
[2018-08-03] MEDS: NITROFURANTOIN (MACROBID) 100 MG CAP PO SCH ×2 (08:45→21:52)
[2018-08-03] MEDS: FOLIC ACID 1 MG TAB PO SCH (08:45)
[2018-08-03] MEDS: predniSONE 10 MG TAB PO SCH ×2 (08:45→21:52)
[2018-08-03] MEDS: CALCITRIOL 0.25 MCG CAP (S0169) PO SCH (08:45)
[2018-08-03] MEDS: ASPIRIN 81 MG ENTERIC TAB PO SCH (08:45)
[2018-08-03] MEDS: FEBUXOSTAT 40 MG TABLET (ULORIC) PO SCH (08:45)
[2018-08-03] MEDS: GEMFIBROZIL 600 MG TAB PO SCH ×2 (08:46→21:52)
[2018-08-03] MEDS: FAMOTIDINE 20 MG TAB PO SCH ×2 (08:46→21:52)
[2018-08-03] MEDS: LACTOBACILLUS ACIDOPHILUS CAP (BACID) PO SCH ×2 (08:46→17:19)
[2018-08-03] MEDS: amLODIPine 10 MG TAB PO SCH (08:46)
[2018-08-03] MEDS: ANALGESIC BALM CRM 120 GM TOP SCH ×2 (08:47→21:00)
[2018-08-03] MEDS: DIAPER RELIEF PASTE (DESITIN) 60GM TOP SCH ×2 (08:48→21:00)
[2018-08-03] MEDS: CARVedilol 12.5 MG TAB PO SCH ×2 (08:49→21:53)
[2018-08-03] MEDS: **hydrALAZINE HCL** 25 MG TAB PO SCH ×2 (12:07→17:18)
[2018-08-03 14:00] VITALS: BP 120/60
--- NOTE | 2018-08-03 14:04 | IPNPDOC ---
Date Seen The patient was seen on 08/03/18. Progress Note HPI: 68M pnh HTN and DM, left carotid artery stenosis s/p stenting, gout, CAD, ENEDINA, CKD3, recent GIB who initially presented to [facility] on 06/29/18 with reported seizures, arrived with a Arnav Coma Scale of 3, was given loading dose of Dilantin and intubated. CTH showed a right frontal mass so he was transferred to [facility] in [place], [place] for further work-up. At [place] MRI on 06-30-18 showed a 3cm by 3cm right frontal lobe lesion with a hemorrhagic component, possible neoplasm or less likley transformation of an infarction. He was found to have leukocytosis which was thought to be from seizure activity and remained afebrile. He had significant hyponatremia, acute on chronic CKD and elevated blood sugars managed with insulin. He was evaluated by neurosurgery and had a resection of his right frontal mass on 07/04/18 after which he was maintained on a Decadron taper and continued on Dilantin for seizure prophylaxis. He was evaluated by therapy and noted to have significant impairment in his ADLs and gait, and was deemed medically appropriate for transfer to [facility] on 07-09-18, as per Dr Young, with pathology pending from his recent tumor resection. Pt denies any loose stools. Denies abdominal pain, N/V. OOB to chair. Anxious for d/c Thursday. Denies any fevers, chills, weakness, fatigue, STEPHENS, CP, palpitations. PE: GEN: 68yoM, appears stated age. Alert and oriented x 3. HEENT: Normocephalic, healing craniotomy scar. Sclera are nonicteric. Conjunc tiva without injection. No facial asymmetry. Moist mucous membranes. CHEST: Regular rate and rhythm, +S1, +S2 LUNGS: CTA. No wheezes, rales, or rhonchi appreciated. ABD: Round, soft, non-tender, non-distended. +Bowel sounds throughout. EXT: Tr lower extremity edema appreciated. SKIN: [place], dry, warm. No rashes. A&P: 1. Frontal cranial mass status post resection at [facility] in [place] on 07/05/2018. Mgmt as per ARU. PT/OT/ST as per ARU Pain control as per ARU DVT prophylaxis as per ARU, SQ Heparin. Outpt F/U with Neurosurgery. Continue on Decadron taper as per Neurosurgery. Continue on Dilantin seizure prophylaxis as per Neurosurgery. Dilantin dose adjusted as per attending to 175 Q8h, Dilantin level 08/02/18 14.3. Pt seen by Neurology. Outpt F/U planned. Seizure precautions. Slid OOB 07/14/18- CT head completed with no acute changes. Repeat CT 07/20/18 with no acute changes. 2. Recent C diff. PO Vanco changed to Dificid 07/16/18. Dificid x 10d completed 07/25/18. Continue Bacid 2 tab BID. Dificid Q2 days currently to prevent recurrent C diff while on antibiotic for UTI. 3. Hypokalemia. S/P po supplement . Monitor. 4. Hypomagnesemia. S/P mag run. Continue to monitor mag level. 5. Chronic kidney disease3. Nephrology following. Demadex 20 mg daily ON HOLD. Monitor. 6. Gout. On Uloric. Prednisone taper. 7. Hypertension. Medications being adjusted as per Dr. Young carvedilol 50mg mg BID. Hydralazine 75 mg Q6 with hold parameter. Norvasc discontinued as per Dr. Yuong Monitor BP control. 8. Coronary artery disease. ASA 9. Carotid stenosis, status post endarterectomy. 10. Congestive heart failure. Demadex ON HOLD Nephrology following. 10. Diabetes. Levemir d/cd 07/19/18, no further hypoglycemia. SSI Monitor 11. Benign prostatic hypertrophy (BPH). Flomax. 13. Anemia. Normocytic. Likely related to chronic disease/CKD. hgb 8.1. Fe studies, B12, folate 07/14/18. Folate supplement added. PRBC x 2 units 07/21. IV Venofer planned prior to discharge as per nephrology. Continue to monitor. 14. Recurrent UTI. E Coli. UC 07/18/18 pansensitive E coli. UC 07/20 E coli Pt treated with Fosfomycin x 3 doses completed 07/24/18 as per ID. Amoxicillin changed to po Nitrofurantoin today related to sensitivities, following discussion with ID as per Dr Young. ID following. 15. GI prophylaxis. HOLD PPI. Continue pepcid. VS, I&O, 24H, Fishbone Vital Signs/I&O Vital Signs Date Time Temp Pulse Resp B/P (MAP) Pulse Ox O2 Delivery O2 Flow Rate FiO2 08/03/18 12:07 170/68 08/03/18 08:49 72 08/03/18 06:00 95.5 18 98 I&O- Last 24 Hours up to 6 AM 08/03/18 05:59 Intake Total 960 ml Output Total 350 ml Balance 610 ml Laboratory Data 24H LABS Laboratory Tests 2 08/02/18 17:02: Bedside Glucose (Misc Panel) 173H 08/02/18 21:23: Bedside Glucose (Misc Panel) 80 08/03/18 06:16: Bedside Glucose (Misc Panel) 186H 08/03/18 06:37: Nucleated Red Blood Cells % (auto) 0.0, Anion Gap 7L, Glomerular Filtration Rate 43.6L, Blood Urea Nitrogen 27H, Creatinine 1.68H, Sodium Level 139, Potassium Level 4.2, Chloride Level 106, Carbon Dioxide Level 26, Calcium Level 8.2L CBC/BMP Laboratory Tests 08/03/18 06:37 Red Blood Count 2.84 L, Mean Corpuscular Volume 88.7, Mean Corpuscular Hemoglobin 28.5, Mean Corpuscular Hemoglobin Concent 32.1, Red Cell Distribution Width 17.9 H, Calcium Level 8.2 L Microbiology Microbiology 07/30/18 Urine Culture - Final, Complete Escherichia Coli Saadia Campbell Aug 03, 2018 14:04
--- NOTE | 2018-08-03 16:12 | IPNPDOC ---
PM&R Progress Note DATE OF SERVICE: Aug 02, 2018 Registered Nurse Cardiac Telemetry Progress Note Subjective: Patient walking around his room unassisted and participating more in therapy. REVIEW OF SYSTEMS: The following is a completed review of systems and has been reviewed. Review of systems otherwise unremarkable. PAIN: Patient self reports bilateral chronic knee pain EYES: Negative for recent vision changes EARS, NOSE, & THROAT: dysphagia (resolved) denies rhinorrhea CARDIOVASCULAR: +sternal pain, otherwise no palpitations PULMONARY: Negative. Denies shortness of breath, cough resolved. GASTROINTESTINAL:+ diarrhea (resolved) GENITOURINARY: Negative for dysuria or hematuria, + retention (improved) MUSCULOSKELETAL: bilateral knee OA vs gout NEUROLOGICAL: s/p right frontal lobe resection , seizures HEMATOLOGICAL: Negative SKIN: sacral ulcer PSYCHIATRIC: Unremarkable All other review of systems found to be negative. PHYSICAL EXAMINATION: VITAL SIGNS: Please see below. GENERAL: Pleasant and cooperative. No acute distress. HEENT: PERRL. Extraocular movements intact. Clear conjunctiva, left facial droop (eyebrow sparing) CARDIOVASCULAR: Regular rate and rhythm. No murmurs, rubs, or gallops +TTP sternal palpation LUNGS: Clear to auscultation bilaterally. No wheezes. No rhonchi ABDOMEN: Soft, nontender, nondistended. Positive bowel sounds. Normal active bowel sound NEUROLOGICAL: Alert and oriented times to self and place, not time Cranial nerves II through XII grossly intact. Sensation grossly intact able to follow 2-step commands, however unable to perform Luria, +Apraxia EXTREMITIES:5\5 strength bilateral upper extremities. >3/5 bilateral hip flexors and knee extensors, 5/5 bilateral ankle DF and EHL Bilateral knees warm to touch with effusion right wrist, non-tender to palpation Left mid-foot warm to touch and mild TTP SKIN: sacral ulcer, right frontal craniotonomy incision c/d/i ASSESSMENT:68-year-old M with past medical history of ENEDINA, HTN, CAD who presents status post right frontal mass resection with seizures. PLAN: 1. rehab: PTOT, [employer] advance diet, assess for DME- significant apraxia, able to participate more in therapy, ambulating further with RW, however cognition impaired, continu [employer] for cognitive tasks in OT for safe discharge to home 2. Neuro:s/p right frontal mass resection, pathology per negative however awaiting offical results results, Dilantin for seizures 125q8h, however levels low at 9.1, increased to 150 qh on 07/12/18 and on 07/19/18 8.6 will increase to 175q8h and recheck 07/26/18 - neuro consult recs appreciated, s/p Decadron taper, will consider transition to Depakote given his impaired renal function -will need outpatient neuro f/u 2-4 weeks from discharge to review scans from [facility] and consider carotid US, he is s/p left CEA performed in by Dr. Rosa and currently has right carotid artery stenosis -reschedule surgery follow-up until 08/05/18 at 9:[address] Tello, path results do not suggest malignant tissue 3. Cardio: pmh HTn and HLD, hx of CHF, diuretics on hold per renal recs- medicine consulted, increased beta-ronda and added hydralazine for elevated BPs-imrproving 4. Resp: ENEDINA non-compliant with CPAP, cough improved, recent diagnosis of Rhinovirus, off droplet precautions now 5. Endo: pmh DM continue home meds and adjust prn 6. Rheum: pmh gout, continue Uloric, s/p recent short dose of prednisone for right writs will consider another steroid dosing, patient encouraged to drink more water and avoid pepsi, continue prednisone taper for left foot 7. DVT ppx: continue heparin, US of right UE negative for DVT 8. GI ppx: omeprazole, patient found to have +C diff , given persistent diarrhea on Vancomycin, s/p 10 day course of Difficid 200mg BID with resolution of diarrhea, Dificid restarted to avoid recurrence while on antibiotics, will d/c precautions- ID recs appreciated 9. : admission UA and Ucx negative monitor PVRs- repeat Ua and Ucx positive for E. Coli, ID consulted, s/p Fosfomycin, recs appreciated-repeat Ucx positive for E. coli, start 14 days of macrobid per ID recs-appreciated -Renal US ordered, results pending renal consulted for retention and metabolic acidosis s/p Bicarb drips recs appreciated 10. Heme: patient with anemia of chronic disease, given 2 units prbc per renal recs on 07/21, 10. Pain: patient with headaches, Tylenol and Fioricet prn 11. Dispo: 08/02/18, slowly progressing towards goals, will request more time to work on safer discharge to home where he will not have 12/01 supervision, spoke with and she would prefer 08/06/18 for discharge and plans to obtain security camera and be home with him for 10 days for vacation Allergies Coded Allergies: No Known Allergies (Verified , 03/30/18) Vital Signs Vital Signs Date Time Temp Pulse Resp B/P (MAP) Pulse Ox O2 Delivery O2 Flow Rate FiO2 08/03/18 14:00 95.9 69 18 120/60 (80) 100 Laboratory Data CBC/BMP Laboratory Tests 08/03/18 06:37 Red Blood Count 2.84 L, Mean Corpuscular Volume 88.7, Mean Corpuscular Hemoglobin 28.5, Mean Corpuscular Hemoglobin Concent 32.1, Red Cell Distribution Width 17.9 H, Calcium Level 8.2 L Labs 24H Laboratory Tests 2 08/02/18 17:02: Bedside Glucose (Misc Panel) 173H 08/02/18 21:23: Bedside Glucose (Misc Panel) 80 08/03/18 06:16: Bedside Glucose (Misc Panel) 186H 08/03/18 06:37: Nucleated Red Blood Cells % (auto) 0.0, Anion Gap 7L, Glomerular Filtration Rate 43.6L, Blood Urea Nitrogen 27H, Creatinine 1.68H, Sodium Level 139, Potassium Level 4.2, Chloride Level 106, Carbon Dioxide Level 26, Calcium Level 8.2L 08/03/18 11:41: Bedside Glucose (Misc Panel) 73L Microbiology Microbiology 07/30/18 Urine Culture - Final, Complete Escherichia Coli Current Medications Current Medications Current Medications Acetaminophen (Tylenol Tab) 650 mg DAILY PRN PO fever Last administered on 07/29/18at 05:22; Start 07/09/18 at 21:00 Acetaminophen (Tylenol Tab) 1,000 mg QHS PO Last administered on 08/02/18at 21:44; Start 07/26/18 at 21:00 Acetaminophen (Tylenol Tab) 1,000 mg TID PO Last administered on 07/26/18at 16:34; Start 07/09/18 at 21:00; Stop 07/26/18 at 18:28; Status DC Acetaminophen/ Butalbital/ Caffeine (Fioricet) 1 ea Q6HP PRN PO HEADACHE Last administered on 07/12/18 12:58; Start 07/12/18 at 11:00 Albuterol/ Ipratropium (Duoneb (Ipr 0.5mg/Alb 2.5mg)) 3 ml BID NEB ; Start 07/14/18 at 21:00; Status UNV Albuterol/ Ipratropium (Duoneb (Ipr 0.5mg/Alb 2.5mg)) 3 ml Q4HP PRN NEB SOB/WHEEZING Last administered on 07/29/18 01:12; Start 07/29/18 at 01:00 Albuterol/ Ipratropium (Duoneb (Ipr 0.5mg/Alb 2.5mg)) 3 ml RBID NEB Last administered on 08/03/18 07:20; Start 07/10/18 at 08:00 Amlodipine Besylate (Norvasc) 10 mg DAILY PO Last administered on 08/03/18 08:46; Start 07/10/18 at 09:00; Stop 08/03/18 at 09:51; Status DC Amoxicillin (Amoxicillin) 500 mg Q8H PO Last administered on 08/02/18 05:13; Start 07/30/18 at 14:00; Stop 08/02/18 at 11:56; Status DC Ampicillin Sodium 500 mg/Dextrose 50 ml @ 100 mls/hr Q6H IV ; Start 07/30/18 at 18:00; Stop 07/30/18 at 18:00; Status DC Aspirin (Ecotrin) 81 mg DAILY PO Last administered on 08/03/18 08:45; Start 07/10/18 at 09:00 Bisacodyl (Dulcolax Suppository) 10 mg DAILYPRN PRN TX CONSTIPATION; Start 07/09/18 at 21:15; Stop 07/20/18 at 14:26; Status DC Calcitriol (Rocaltrol) 0.25 mcg DAILY PO Last administered on 08/03/18 08:45; Start 07/10/18 at 09:00 Calcium Carbonate (Tums) 500 mg DAILYPRN PRN PO INDIGESTION Last administered on 07/20/18 01:22; Start 07/19/18 at 20:00 Carvedilol (COReg) 12.5 mg BID PO Last administered on 07/14/18 09:03; Start 07/09/18 at 21:00; Stop 07/14/18 at 11:08; Status DC Carvedilol (COReg) 25 mg BID PO Last administered on 07/19/18at 08:40; Start 07/14/18 at 21:00; Stop 07/19/18 at 10:30; Status DC Carvedilol (COReg) 37.5 mg BID PO Last administered on 07/25/18 08:48; Start 07/19/18 at 21:00; Stop 07/25/18 at 18:46; Status DC Carvedilol (COReg) 50 mg BID PO Last administered on 08/03/18 08:49; Start 07/25/18 at 21:00 Cefepime HCl 1 gm/ Dextrose 50 ml @ 100 mls/hr Q24H IV Last administered on 07/20/18 15:15; Start 07/20/18 at 13:00; Stop 07/20/18 at 19:38; Status DC Cod Liver Oil/ Zinc Oxide (Desitin) apply to sacrum BID TOP Last administered on 08/03/18at 08:48; Start 07/10/18 at 09:00 Dexamethasone (Decadron) 2 mg DAILY PO Last administered on 07/20/18at 10:34; Start 07/16/18 at 09:00; Stop 07/21/18 at 08:59; Status DC Dexamethasone (Decadron) 2 mg DAILY PO ; Start 07/18/18 at 09:00; Stop 07/18/18 at 09:00; Status DC Dexamethasone (Decadron) 2 mg Q12H PO Last administered on 07/15/18at 21:09; Start 07/13/18 at 21:00; Stop 07/15/18 at 21:55; Status DC Dexamethasone (Decadron) 4 mg Q12H PO Last administered on 07/13/18at 08:35; Start 07/09/18 at 21:00; Stop 07/13/18 at 20:59; Status DC Dextrose (Dextrose 50%) 25 ml ASDIRECTED PRN IV SEE LABEL COMMENTS; Start 07/09/18 at 21:00 Dextrose (Dextrose 50%) 25 ml ASDIRECTED PRN IV SEE LABEL COMMENTS; Start 07/30/18 at 20:00; Status UNV Famotidine (Pepcid) 10 mg BID PO Last administered on 08/03/18 08:46; Start 07/12/18 at 15:00 Febuxostat (Uloric) 120 mg DAILY PO Last administered on 08/03/18 08:45; Start 07/10/18 at 09:00 Fidaxomicin (Dificid) 200 mg BID PO Last administered on 07/25/18at 21:55; Start 07/16/18 at 11:45; Stop 07/25/18 at 21:01; Status DC Fidaxomicin (Dificid) 200 mg BID PO Last administered on 08/03/18 08:45; Start 07/30/18 at 21:00; Stop 08/04/18 at 09:01 Fidaxomicin (Dificid) 200 mg Q2D PO ; Start 08/06/18 at 09:00 Folic Acid (Folic Acid) 1 mg DAILY PO Last administered on 08/03/18 08:45; Start 07/16/18 at 09:00 Fosfomycin Tromethamine (Monurol) 3 gm Q2D PO Last administered on 07/24/18 08:52; Start 07/22/18 at 09:00; Stop 07/24/18 at 12:00; Status DC Gemfibrozil (Lopid) 600 mg BID PO Last administered on 08/03/18 08:46; Start 07/09/18 at 21:00 Glucagon (Glucagon) 1 mg ASDIRECTED PRN SC SEE LABEL COMMENTS; Start 07/09/18 at 21:00 Glucagon (Glucagon) 1 mg ASDIRECTED PRN SC SEE LABEL COMMENTS; Start 07/30/18 at 20:00; Status UNV Glucose (Glucose) 16 GM ASDIRECTED PRN PO SEE LABEL COMMENTS; Start 07/09/18 at 21:00 Glucose (Glucose) 16 GM ASDIRECTED PRN PO SEE LABEL COMMENTS; Start 07/30/18 at 20:00; Status UNV Guaifenesin (Robitussin Tab) 400 mg TID PO Last administered on 08/03/18 08:45; Start 07/10/18 at 09:00 Guaifenesin (Robitussin Tab) 400 mg TID PO ; Start 07/14/18 at 21:00; Stop 07/14/18 at 21:00; Status DC Heparin Sodium (Porcine) (Heparin) 5,000 units Q8H SQ Last administered on 07/28/18 05:29; Start 07/09/18 at 22:00; Stop 07/28/18 at 10:00; Status DC Home Med (Med Rec Complete!) ASDIRECTED XX ; Start 07/09/18 at 23:00; Stop 07/09/18 at 23:00; Status DC Hydralazine HCl (Apresoline) 25 mg Q6H PO Last administered on 07/23/18at 05:52; Start 07/20/18 at 12:00; Stop 07/23/18 at 11:52; Status DC Hydralazine HCl (Apresoline) 50 mg Q6H PO Last administered on 08/03/18at 06:22; Start 07/23/18 at 12:00; Stop 08/03/18 at 09:51; Status DC Hydralazine HCl (Apresoline) 75 mg Q6H PO Last administered on 08/03/18at 12:07; Start 08/03/18 at 12:00 Insulin Detemir (Levemir Insulin) 5 units QHS SC Last administered on 08/01/18at 20:57; Start 07/30/18 at 21:00 Insulin Detemir (Levemir Insulin) 10 units QHS SC Last administered on 07/16/18at 21:49; Start 07/15/18 at 21:00; Stop 07/19/18 at 13:01; Status DC Insulin Detemir (Levemir Insulin) 20 units QHS SC Last administered on 07/14/18at 22:04; Start 07/09/18 at 21:00; Stop 07/15/18 at 14:20; Status DC Insulin Human Lispro (HumaLOG INSULIN) SEE PROTOCOL TABLE AC SC Last administered on 07/27/18 07:52; Start 07/10/18 at 07:30; Stop 07/27/18 at 11:01; Status DC Insulin Human Lispro (HumaLOG INSULIN) SEE PROTOCOL TABLE AC SC Last administered on 08/03/18at 08:44; Start 07/31/18 at 07:30 Lactobacillus Acidophilus (Bacid) 1 ea BIDWM PO Last administered on 07/14/18at 08:59; Start 07/11/18 at 08:00; Stop 07/14/18 at 13:09; Status DC Lactobacillus Acidophilus (Bacid) 1 ea TID PO ; Start 07/30/18 at 16:00; Stop 07/30/18 at 16:00; Status DC Lactobacillus Acidophilus (Bacid) 2 ea BIDWM PO Last administered on 08/03/18at 08:46; Start 07/14/18 at 18:00 Lidocaine (Lidoderm Patch) 1 patch DAILY TD Last administered on 08/02/18at 09:04; Start 07/10/18 at 09:00 Lorazepam (Ativan) 2 mg Q6H PRN IV SEIZURES; Start 07/10/18 at 02:30; Stop 07/22/18 at 12:01; Status DC Magnesium Hydroxide (Milk Of Magnesia) 30 ml DAILYPRN PRN PO CONSTIPATION; Start 07/09/18 at 21:15; Stop 07/20/18 at 14:26; Status DC Menthol/Methyl Salicylate (Bengay Cream) 1 dose BID TOP Last administered on 08/03/18at 08:47; Start 07/30/18 at 09:00 Metronidazole (Flagyl) 500 mg Q8H PO Last administered on 07/11/18at 05:01; Start 07/11/18 at 04:00; Stop 07/11/18 at 07:12; Status DC Miscellaneous (Unresolved Clarification Entry) SEE LABEL COMMENTS DAILY XX ; Start 07/21/18 at 09:00; Stop 07/22/18 at 07:12; Status DC Miscellaneous (Unresolved Clarification Entry) SEE LABEL COMMENTS DAILY XX ; Start 07/22/18 at 09:00; Stop 07/23/18 at 04:46; Status DC Nitrofurantoin Monoh/Nitrofur Macro (Macrobid) 100 mg BID PO Last administered on 08/03/18at 08:45; Start 08/02/18 at 09:00; Stop 08/08/18 at 21:01 Non-Formulary Medication ( See Comment Field Below ) REMOVE LIDODERM PATCH DAILY@21 XX Last administered on 08/02/18at 21:00; Start 07/09/18 at 21:00 Omeprazole (PriLOSEC) 40 mg QHS PO Last administered on 07/11/18at 22:26; Start 07/09/18 at 21:00; Stop 07/12/18 at 14:39; Status DC Ondansetron HCl (Zofran) 4 mg Q6HP PRN PO NAUSEA Last administered on 07/28/18at 08:47; Start 07/09/18 at 21:15 Phenytoin (Dilantin Chewable) 125 mg Q8H PO Last administered on 07/12/18at 05: 49; Start 07/09/18 at 22:00; Stop 07/12/18 at 10:30; Status DC Phenytoin (Dilantin Chewable) 150 mg Q8H PO Last administered on 07/19/18at 13:01; Start 07/12/18 at 14:00; Stop 07/19/18 at 15:37; Status DC Phenytoin (Dilantin Chewable) 175 mg Q8H PO Last administered on 08/03/18at 14:02; Start 07/19/18 at 22:00 Potassium Chloride (Micro-K Extencaps) 20 meq DAILY PO Last administered on 07/17/18at 10:19; Start 07/12/18 at 09:00; Stop 07/17/18 at 11:48; Status DC Prednisone (Deltasone) 5 mg DAILY PO ; Start 08/09/18 at 09:00; Stop 08/11/18 at 09:01 Prednisone (Deltasone) 10 mg BID PO Last administered on 08/03/18at 08:45; Start 08/03/18 at 09:00; Stop 08/05/18 at 21:01 Prednisone (Deltasone) 10 mg DAILY PO ; Start 08/06/18 at 09:00; Stop 08/08/18 at 09:01 Prednisone (Deltasone) 15 mg BID PO Last administered on 08/02/18at 21:42; Start 07/31/18 at 09:00; Stop 08/02/18 at 21:01; Status DC Prednisone (Deltasone) 20 mg BID PO Last administered on 07/25/18at 08:47; Start 07/23/18 at 21:00; Stop 07/25/18 at 10:00; Status DC Prednisone (Deltasone) 20 mg BID PO Last administered on 07/30/18at 22:55; Start 07/28/18 at 09:00; Stop 07/30/18 at 21:01; Status DC Ramelteon (Rozerem) 8 mg QHS PO Last administered on 08/02/18 21:43; Start 07/28/18 at 21:00 Senna/Docusate Sodium (Senokot S) 1 tab BID PO Last administered on 07/11/18 22:23; Start 07/10/18 at 09:00; Stop 07/12/18 at 14:39; Status DC Sodium Bicarbonate 150 meq/Sterile Water 1,150 ml @ 60 mls/hr [id number] IV Last administered on 07/22/18at 17:42; Start 07/20/18 at 09:00; Stop 07/23/18 at 04:19; Status DC Sodium Bicarbonate 150 meq/Sterile Water 1,150 ml @ 60 mls/hr [id number] IV ; Start 07/23/18 at 08:00; Stop 07/23/18 at 08:00; Status DC Tamsulosin HCl (Flomax) 0.4 mg QHS PO Last administered on 08/02/18at 21:42; Start 07/09/18 at 21:00 Torsemide (Demadex) 20 mg DAILY PO Last administered on 07/29/18 09:25; Start 07/28/18 at 12:00; Stop 07/30/18 at 09:40; Status DC Torsemide (Demadex) 50 mg BID@09,17 PO ; Start 07/10/18 at 09:00; Stop 07/10/18 at 09:24; Status DC Trazodone HCl (Desyrel) 25 mg QHSP PRN PO INSOMNIA Last administered on 07/29/18 23:17; Start 07/09/18 at 21:00 Vancomycin HCl (First-Vancomycin 50(Firvanq)- 250mg/5ml) 125 mg Q6H PO Last administered on 07/16/18 05:44; Start 07/11/18 at 06:00; Stop 07/16/18 at 11:37; Status DC Zinc Oxide (Boudreauxs Butt Paste) sacrum BID TOP ; Start 07/10/18 at 09:00; Stop 07/10/18 at 13:02; Status DC ESTRELLITA STNATON MD Aug 03, 2018 16:12
--- NOTE | 2018-08-03 16:20 | IPNPDOC ---
PM&R Progress Note DATE OF SERVICE: Aug 03, 2018 [employer] Ware[employer] Progress Note Subjective: Discussed safety concerns with going home and warned patient that driving would be unsafe and that he cannot drive when he goes home. patient and expressed understanding. REVIEW OF SYSTEMS: The following is a completed review of systems and has been reviewed. Review of systems otherwise unremarkable. PAIN: Patient self reports bilateral chronic knee pain EYES: Negative for recent vision changes EARS, NOSE, & THROAT: dysphagia (resolved) denies rhinorrhea CARDIOVASCULAR: +sternal pain, otherwise no palpitations PULMONARY: Negative. Denies shortness of breath, cough resolved. GASTROINTESTINAL:+ diarrhea (resolved) GENITOURINARY: Negative for dysuria or hematuria, + retention (improved) MUSCULOSKELETAL: bilateral knee OA vs gout NEUROLOGICAL: s/p right frontal lobe resection , seizures HEMATOLOGICAL: Negative SKIN: sacral ulcer PSYCHIATRIC: Unremarkable All other review of systems found to be negative. PHYSICAL EXAMINATION: VITAL SIGNS: Please see below. GENERAL: Pleasant and cooperative. No acute distress. HEENT: PERRL. Extraocular movements intact. Clear conjunctiva, left facial droop (eyebrow sparing) CARDIOVASCULAR: Regular rate and rhythm. No murmurs, rubs, or gallops +TTP sternal palpation LUNGS: Clear to auscultation bilaterally. No wheezes. No rhonchi ABDOMEN: Soft, nontender, nondistended. Positive bowel sounds. Normal active bowel sound NEUROLOGICAL: Alert and oriented times to self and place, not time Cranial ne rves II through XII grossly intact. Sensation grossly intact able to follow 2-step commands, however unable to perform Luria, +Apraxia EXTREMITIES:5\5 strength bilateral upper extremities. >3/5 bilateral hip flexors and knee extensors, 5/5 bilateral ankle DF and EHL Bilateral knees warm to touch with effusion right wrist, non-tender to palpation Left mid-foot warm to touch and mild TTP SKIN: sacral ulcer, right frontal craniotonomy incision c/d/i ASSESSMENT:68-year-old M with past medical history of ENEDINA, HTN, CAD who presents status post right frontal mass resection with seizures. PLAN: 1. rehab: PTOT, OPERATIONS DEVELOPER advance diet, assess for DME- significant apraxia, able to participate more in therapy, ambulating further with RW, however cognition impaired, continu OPERATIONS DEVELOPER for cognitive tasks in OT for safe discharge to home 2. Neuro:s/p right frontal mass resection, pathology per negative however awaiting offical results results, Dilantin for seizures 125q8h, however levels low at 9.1, increased to 150 qh on 07/12/18 and on 07/19/18 8.6 will increase to 175q8h- 10.8 on 07/26/18 and 14.3 on 08/02/18-will recheck 08/06/18 prior to discharge and provide script with outpatient neuro follow-up - neuro consult recs appreciated, s/p Decadron taper, will consider transition to Depakote given his impaired renal function -will need outpatient neuro f/u 2-4 weeks from discharge to review scans from [facility] and consider carotid US, he is s/p left CEA performed in by Dr. Rosa and currently has right carotid artery stenosis -reschedule surgery follow-up until 09/23/18 at 10:[address] Tello, path results do not suggest malignant tissue 3. Cardio: pmh HTn and HLD, hx of CHF, diuretics on hold per renal recs- medicine consulted, increased beta-ronda and added hydralazine for elevated BPs-imrproving 4. Resp: ENEDINA non-compliant with CPAP, cough improved, recent diagnosis of Rhinovirus, off droplet precautions now 5. Endo: pmh DM continue home meds and adjust prn 6. Rheum: pmh gout, continue Uloric, s/p recent short dose of prednisone for right wrist will consider another steroid dosing, patient encouraged to drink more water and avoid pepsi, continue prednisone taper for left foot 7. DVT ppx: continue heparin, US of right UE negative for DVT 8. GI ppx: omeprazole, patient found to have +C diff , given persistent diarrhea on Vancomycin, s/p 10 day course of Difficid 200mg BID with resolution of diarrhea, Dificid restarted to avoid recurrence while on antibiotics, will d/c precautions- ID recs appreciated 9. : admission UA and Ucx negative monitor PVRs- repeat Ua and Ucx positive for E. Coli, ID consulted, s/p Fosfomycin, recs appreciated-repeat Ucx positive for E. coli, continue 14 days of macrobid per ID recs-appreciated -Renal US ordered, results pending renal consulted for retention and metabolic acidosis s/p Bicarb drips recs appreciated 10. Heme: patient with anemia of chronic disease, given 2 units prbc per renal recs on . Pain: patient with headaches, Tylenol and Fioricet prn 11. Dispo: 08/02/18, slowly progressing towards goals, will request more time to work on safer discharge to home where he will not have 24/7 supervision, spoke with and she would prefer 08/06/18 for discharge and plans to obtain security camera and be home with him for 10 days for vacation Allergies Coded Allergies: No Known Allergies (Verified , 03/30/18) Vital Signs Vital Signs Date Time Temp Pulse Resp B/P (MAP) Pulse Ox O2 Delivery O2 Flow Rate FiO2 08/03/18 14:00 95.9 69 18 120/60 (80) 100 Laboratory Data CBC/BMP Laboratory Tests 08/03/18 06:37 Red Blood Count 2.84 L, Mean Corpuscular Volume 88.7, Mean Corpuscular Hemoglobi n 28.5, Mean Corpuscular Hemoglobin Concent 32.1, Red Cell Distribution Width 17.9 H, Calcium Level 8.2 L Labs 24H Laboratory Tests 2 08/02/18 17:02: Bedside Glucose (Misc Panel) 173H 08/02/18 21:23: Bedside Glucose (Misc Panel) 80 08/03/18 06:16: Bedside Glucose (Misc Panel) 186H 08/03/18 06:37: Nucleated Red Blood Cells % (auto) 0.0, Anion Gap 7L, Glomerular Filtration Rate 43.6L, Blood Urea Nitrogen 27H, Creatinine 1.68H, Sodium Level 139, Potassium Level 4.2, Chloride Level 106, Carbon Dioxide Level 26, Calcium Level 8.2L 08/03/18 11:41: Bedside Glucose (Misc Panel) 73L Microbiology Microbiology 07/30/18 Urine Culture - Final, Complete Escherichia Coli Current Medications Current Medications Current Medications Acetaminophen (Tylenol Tab) 650 mg DAILY PRN PO fever Last administered on 07/29/18at 05:22; Start 07/09/18 at 21:00 Acetaminophen (Tylenol Tab) 1,000 mg QHS PO Last administered on 08/02/18at 21:44; Start 07/26/18 at 21:00 Acetaminophen (Tylenol Tab) 1,000 mg TID PO Last administered on 07/26/18 16:34; Start 07/09/18 at 21:00; Stop 07/26/18 at 18:28; Status DC Acetaminophen/ Butalbital/ Caffeine (Fioricet) 1 ea Q6HP PRN PO HEADACHE Last administered on 07/12/18 12:58; Start 07/12/18 at 11:00 Albuterol/ Ipratropium (Duoneb (Ipr 0.5mg/Alb 2.5mg)) 3 ml BID NEB ; Start 07/14/18 at 21:00; Status UNV Albuterol/ Ipratropium (Duoneb (Ipr 0.5mg/Alb 2.5mg)) 3 ml Q4HP PRN NEB SOB/WHEEZING Last administered on 07/29/18 01:12; Start 07/29/18 at 01:00 Albuterol/ Ipratropium (Duoneb (Ipr 0.5mg/Alb 2.5mg)) 3 ml RBID NEB Last administered on 08/03/18 07:20; Start 07/10/18 at 08:00 Amlodipine Besylate (Norvasc) 10 mg DAILY PO Last administered on 08/03/18 08:46; Start 07/10/18 at 09:00; Stop 08/03/18 at 09:51; Status DC Amoxicillin (Amoxicillin) 500 mg Q8H PO Last administered on 08/02/18 05:13; Start 07/30/18 at 14:00; Stop 08/02/18 at 11:56; Status DC Ampicillin Sodium 500 mg/Dextrose 50 ml @ 100 mls/hr Q6H IV ; Start 07/30/18 at 18:00; Stop 07/30/18 at 18:00; Status DC Aspirin (Ecotrin) 81 mg DAILY PO Last administered on 08/03/18 08:45; Start 07/10/18 at 09:00 Bisacodyl (Dulcolax Suppository) 10 mg DAILYPRN PRN DE CONSTIPATION; Start 07/09/18 at 21:15; Stop 07/20/18 at 14:26; Status DC Calcitriol (Rocaltrol) 0.25 mcg DAILY PO Last administered on 08/03/18 08:45; Start 07/10/18 at 09:00 Calcium Carbonate (Tums) 500 mg DAILYPRN PRN PO INDIGESTION Last administered on 07/20/18at 01:22; Start 07/19/18 at 20:00 Carvedilol (COReg) 12.5 mg BID PO Last administered on 07/14/18at 09:03; Start 07/09/18 at 21:00; Stop 07/14/18 at 11:08; Status DC Carvedilol (COReg) 25 mg BID PO Last administered on 07/19/18at 08:40; Start 07/14/18 at 21:00; Stop 07/19/18 at 10:30; Status DC Carvedilol (COReg) 37.5 mg BID PO Last administered on 07/25/18 08:48; Start 07/19/18 at 21:00; Stop 07/25/18 at 18:46; Status DC Carvedilol (COReg) 50 mg BID PO Last administered on 08/03/18at 08:49; Start 07/25/18 at 21:00 Cefepime HCl 1 gm/ Dextrose 50 ml @ 100 mls/hr Q24H IV Last administered on 07/20/18at 15:15; Start 07/20/18 at 13:00; Stop 07/20/18 at 19:38; Status DC Cod Liver Oil/ Zinc Oxide (Desitin) apply to sacrum BID TOP Last administered on 08/03/18at 08:48; Start 07/10/18 at 09:00 Dexamethasone (Decadron) 2 mg DAILY PO Last administered on 07/20/18at 10:34; Start 07/16/18 at 09:00; Stop 07/21/18 at 08:59; Status DC Dexamethasone (Decadron) 2 mg DAILY PO ; Start 07/18/18 at 09:00; Stop 07/18/18 at 09:00; Status DC Dexamethasone (Decadron) 2 mg Q12H PO Last administered on 07/15/18at 21:09; Start 07/13/18 at 21:00; Stop 07/15/18 at 21:55; Status DC Dexamethasone (Decadron) 4 mg Q12H PO Last administered on 07/13/18at 08:35; Start 07/09/18 at 21:00; Stop 07/13/18 at 20:59; Status DC Dextrose (Dextrose 50%) 25 ml ASDIRECTED PRN IV SEE LABEL COMMENTS; Start 07/09/18 at 21:00 Dextrose (Dextrose 50%) 25 ml ASDIRECTED PRN IV SEE LABEL COMMENTS; Start 07/30/18 at 20:00; Status UNV Famotidine (Pepcid) 10 mg BID PO Last administered on 08/03/18 08:46; Start 07/12/18 at 15:00 Febuxostat (Uloric) 120 mg DAILY PO Last administered on 08/03/18at 08:45; Start 07/10/18 at 09:00 Fidaxomicin (Dificid) 200 mg BID PO Last administered on 07/25/18at 21:55; Start 07/16/18 at 11:45; Stop 07/25/18 at 21:01; Status DC Fidaxomicin (Dificid) 200 mg BID PO Last administered on 08/03/18at 08:45; Start 07/30/18 at 21:00; Stop 08/04/18 at 09:01 Fidaxomicin (Dificid) 200 mg Q2D PO ; Start 08/06/18 at 09:00 Folic Acid (Folic Acid) 1 mg DAILY PO Last administered on 08/03/18 08:45; Start 07/16/18 at 09:00 Fosfomycin Tromethamine (Monurol) 3 gm Q2D PO Last administered on 07/24/18 08:52; Start 07/22/18 at 09:00; Stop 07/24/18 at 12:00; Status DC Gemfibrozil (Lopid) 600 mg BID PO Last administered on 08/03/18at 08:46; Start 07/09/18 at 21:00 Glucagon (Glucagon) 1 mg ASDIRECTED PRN SC SEE LABEL COMMENTS; Start 07/09/18 at 21:00 Glucagon (Glucagon) 1 mg ASDIRECTED PRN SC SEE LABEL COMMENTS; Start 07/30/18 at 20:00; Status UNV Glucose (Glucose) 16 GM ASDIRECTED PRN PO SEE LABEL COMMENTS; Start 07/09/18 at 21:00 Glucose (Glucose) 16 GM ASDIRECTED PRN PO SEE LABEL COMMENTS; Start 07/30/18 at 20:00; Status UNV Guaifenesin (Robitussin Tab) 400 mg TID PO Last administered on 2/12/19at 08:45; Start 07/10/18 at 09:00 Guaifenesin (Robitussin Tab) 400 mg TID PO ; Start 07/14/18 at 21:00; Stop 07/14/18 at 21:00; Status DC Heparin Sodium (Porcine) (Heparin) 5,000 units Q8H SQ Last administered on 07/28/18at 05:29; Start 07/09/18 at 22:00; Stop 07/28/18 at 10:00; Status DC Home Med (Med Rec Complete!) ASDIRECTED XX ; Start 07/09/18 at 23:00; Stop 07/09/18 at 23:00; Status DC Hydralazine HCl (Apresoline) 25 mg Q6H PO Last administered on 07/23/18 05:52; Start 07/20/18 at 12:00; Stop 07/23/18 at 11:52; Status DC Hydralazine HCl (Apresoline) 50 mg Q6H PO Last administered on 08/03/18at 06:22; Start 07/23/18 at 12:00; Stop 08/03/18 at 09:51; Status DC Hydralazine HCl (Apresoline) 75 mg Q6H PO Last administered on 08/03/18at 12:07; Start 08/03/18 at 12:00 Insulin Detemir (Levemir Insulin) 5 units QHS SC Last administered on 08/01/18at 20:57; Start 07/30/18 at 21:00 Insulin Detemir (Levemir Insulin) 10 units QHS SC Last administered on 07/16/18at 21:49; Start 07/15/18 at 21:00; Stop 07/19/18 at 13:01; Status DC Insulin Detemir (Levemir Insulin) 20 units QHS SC Last administered on 07/14/18at 22:04; Start 07/09/18 at 21:00; Stop 07/15/18 at 14:20; Status DC Insulin Human Lispro (HumaLOG INSULIN) SEE PROTOCOL TABLE AC SC Last administered on 07/27/18at 07:52; Start 07/10/18 at 07:30; Stop 07/27/18 at 11:01; Status DC Insulin Human Lispro (HumaLOG INSULIN) SEE PROTOCOL TABLE AC SC Last administered on 08/03/18at 08:44; Start 07/31/18 at 07:30 Lactobacillus Acidophilus (Bacid) 1 ea BIDWM PO Last administered on 07/14/18at 08:59; Start 07/11/18 at 08:00; Stop 07/14/18 at 13:09; Status DC Lactobacillus Acidophilus (Bacid) 1 ea TID PO ; Start 07/30/18 at 16:00; Stop 07/30/18 at 16:00; Status DC Lactobacillus Acidophilus (Bacid) 2 ea BIDWM PO Last administered on 08/03/18at 08:46; Start 07/14/18 at 18:00 Lidocaine (Lidoderm Patch) 1 patch DAILY TD Last administered on 08/02/18at 09:04; Start 07/10/18 at 09:00 Lorazepam (Ativan) 2 mg Q6H PRN IV SEIZURES; Start 07/10/18 at 02:30; Stop 07/22/18 at 12:01; Status DC Magnesium Hydroxide (Milk Of Magnesia) 30 ml DAILYPRN PRN PO CONSTIPATION; St art 07/09/18 at 21:15; Stop 07/20/18 at 14:26; Status DC Menthol/Methyl Salicylate (Bengay Cream) 1 dose BID TOP Last administered on 08/03/18at 08:47; Start 07/30/18 at 09:00 Metronidazole (Flagyl) 500 mg Q8H PO Last administered on 07/11/18at 05:01; Start 07/11/18 at 04:00; Stop 07/11/18 at 07:12; Status DC Miscellaneous (Unresolved Clarification Entry) SEE LABEL COMMENTS DAILY XX ; Start 07/21/18 at 09:00; Stop 07/22/18 at 07:12; Status DC Miscellaneous (Unresolved Clarification Entry) SEE LABEL COMMENTS DAILY XX ; Start 07/22/18 at 09:00; Stop 07/23/18 at 04:46; Status DC Nitrofurantoin Monoh/Nitrofur Macro (Macrobid) 100 mg BID PO Last administered on 08/03/18at 08:45; Start 08/02/18 at 09:00; Stop 08/08/18 at 21:01 Non-Formulary Medication ( See Comment Field Below ) REMOVE LIDODERM PATCH DAILY@21 XX Last administered on 08/02/18 21:00; Start 07/09/18 at 21:00 Omeprazole (PriLOSEC) 40 mg QHS PO Last administered on 07/11/18 22:26; Start 07/09/18 at 21:00; Stop 07/12/18 at 14:39; Status DC Ondansetron HCl (Zofran) 4 mg Q6HP PRN PO NAUSEA Last administered on 07/28/18 08:47; Start 07/09/18 at 21:15 Phenytoin (Dilantin Chewable) 125 mg Q8H PO Last administered on 07/12/18 05:49; Start 07/09/18 at 22:00; Stop 07/12/18 at 10:30; Status DC Phenytoin (Dilantin Chewable) 150 mg Q8H PO Last administered on 07/19/18 13:01; Start 07/12/18 at 14:00; Stop 07/19/18 at 15:37; Status DC Phenytoin (Dilantin Chewable) 175 mg Q8H PO Last administered on 08/03/18 14:02; Start 07/19/18 at 22:00 Potassium Chloride (Micro-K Extencaps) 20 meq DAILY PO Last administered on 07/17/18 10:19; Start 07/12/18 at 09:00; Stop 07/17/18 at 11:48; Status DC Prednisone (Deltasone) 5 mg DAILY PO ; Start 08/09/18 at 09:00; Stop 08/11/18 at 09:01 Prednisone (Deltasone) 10 mg BID PO Last administered on 08/03/18at 08:45; Start 08/03/18 at 09:00; Stop 08/05/18 at 21:01 Prednisone (Deltasone) 10 mg DAILY PO ; Start 08/06/18 at 09:00; Stop 08/08/18 at 09:01 Prednisone (Deltasone) 15 mg BID PO Last administered on 08/02/18at 21:42; Start 07/31/18 at 09:00; Stop 08/02/18 at 21:01; Status DC Prednisone (Deltasone) 20 mg BID PO Last administered on 07/25/18 08:47; Start 07/23/18 at 21:00; Stop 07/25/18 at 10:00; Status DC Prednisone (Deltasone) 20 mg BID PO Last administered on 07/30/18at 22:55; Start 07/28/18 at 09:00; Stop 07/30/18 at 21:01; Status DC Ramelteon (Rozerem) 8 mg QHS PO Last administered on 08/02/18at 21:43; Start 07/28/18 at 21:00 Senna/Docusate Sodium (Senokot S) 1 tab BID PO Last administered on 07/11/18at 22:23; Start 07/10/18 at 09:00; Stop 07/12/18 at 14:39; Status DC Sodium Bicarbonate 150 meq/Sterile Water 1,150 ml @ 60 mls/hr [id number] IV Last administered on 07/22/18at 17:42; Start 07/20/18 at 09:00; Stop 07/23/18 at 04:19; Status DC Sodium Bicarbonate 150 meq/Sterile Water 1,150 ml @ 60 mls/hr [id number] IV ; Start 07/23/18 at 08:00; Stop 07/23/18 at 08:00; Status DC Tamsulosin HCl (Flomax) 0.4 mg QHS PO Last administered on 08/02/18at 21:42; St art 07/09/18 at 21:00 Torsemide (Demadex) 20 mg DAILY PO Last administered on 07/29/18at 09:25; Start 07/28/18 at 12:00; Stop 07/30/18 at 09:40; Status DC Torsemide (Demadex) 50 mg BID@09,17 PO ; Start 07/10/18 at 09:00; Stop 07/10/18 at 09:24; Status DC Trazodone HCl (Desyrel) 25 mg QHSP PRN PO INSOMNIA Last administered on 07/29/18at 23:17; Start 07/09/18 at 21:00 Vancomycin HCl (First-Vancomycin 50(Firvanq)- 250mg/5ml) 125 mg Q6H PO Last administered on 07/16/18at 05:44; Start 07/11/18 at 06:00; Stop 07/16/18 at 11:37; Status DC Zinc Oxide (Boudreauxs Butt Paste) sacrum BID TOP ; Start 07/10/18 at 09:00; Stop 07/10/18 at 13:02; Status DC ESTRELLITA STANTON MD Aug 03, 2018 16:20
[2018-08-03 20:00] VITALS: BP 151/68
[2018-08-03] MEDS: **NOTE PATIENT COMMENT** MISC XX SCH (21:00)
[2018-08-03] MEDS: LEVEMIR (INSULIN DETEMIR) 1 UNITS/0.01ML SC SCH (21:00)
[2018-08-03] MEDS: RAMELTEON 8 MG TAB (ROZEREM) PO SCH (21:52)
[2018-08-03] MEDS: TAMSULOSIN 0.4 MG CAP PO SCH (21:52)
[2018-08-03] MEDS: ACETAMINOPHEN 500 MG TAB PO SCH (21:54)
[2018-08-04] MEDS: **hydrALAZINE HCL** 25 MG TAB PO SCH ×5 (05:25→21:58)
[2018-08-04] MEDS: PHENYTOIN 50 MG CHEW TABLET PO SCH ×3 (05:25→21:56)
[2018-08-04 06:00] VITALS: BP 166/72
[2018-08-04 07:35] LABS: HEMATOCRIT 25.6 % (42.0-52.0); HEMOGLOBIN 8.2 g/dl (13.5-17.5); MEAN CORPUSCULAR HEMOGLOBIN 28.5 pg (27.0-33.0); MEAN CORPUSCULAR VOLUME 88.9 fl (80.0-96.0); PLATELET COUNT, AUTOMATED 321 10^3/uL (150-450); RED BLOOD COUNT 2.88 10^6/uL (4.30-6.10); WHITE BLOOD COUNT 4.8 10^3/uL (4.0-10.0)
[2018-08-04 07:55] LABS: CALCIUM LEVEL 7.9 MG/DL (8.8-10.2); CREATININE FOR GFR 1.64 MG/DL (0.70-1.30); GLOMERULAR FILTRATION RATE 44.8 (>49); POTASSIUM SERUM 4.1 MEQ/L (3.5-5.1)
[2018-08-04] MEDS: IPRATROPIUM 0.5MG/ALBUTEROL 2.5MG INH SOL UD 3ML (DUONEB)(J7620) NEB SCH ×2 (08:00→20:06)
[2018-08-04] MEDS: DIAPER RELIEF PASTE (DESITIN) 60GM TOP SCH ×2 (09:00→21:00)
[2018-08-04] MEDS: LIDOCAINE 5% (LIDODERM) PATCH TD SCH (09:00)
[2018-08-04] MEDS: FAMOTIDINE 20 MG TAB PO SCH ×2 (09:01→21:59)
[2018-08-04] MEDS: CARVedilol 12.5 MG TAB PO SCH ×2 (09:01→21:59)
[2018-08-04] MEDS: guaiFENesin 200 MG TAB PO SCH ×3 (09:02→21:00)
[2018-08-04] MEDS: LACTOBACILLUS ACIDOPHILUS CAP (BACID) PO SCH ×2 (09:02→17:46)
[2018-08-04] MEDS: NITROFURANTOIN (MACROBID) 100 MG CAP PO SCH ×2 (09:02→21:57)
[2018-08-04] MEDS: FEBUXOSTAT 40 MG TABLET (ULORIC) PO SCH (09:02)
[2018-08-04] MEDS: ASPIRIN 81 MG ENTERIC TAB PO SCH (09:02)
[2018-08-04] MEDS: FOLIC ACID 1 MG TAB PO SCH (09:03)
[2018-08-04] MEDS: GEMFIBROZIL 600 MG TAB PO SCH ×2 (09:03→21:57)
[2018-08-04] MEDS: FIDAXOMICIN 200 MG TAB (DIFICID) PO SCH (09:03)
[2018-08-04] MEDS: CALCITRIOL 0.25 MCG CAP (S0169) PO SCH (09:03)
[2018-08-04] MEDS: predniSONE 10 MG TAB PO SCH ×2 (09:03→21:57)
[2018-08-04] MEDS: ANALGESIC BALM CRM 120 GM TOP SCH ×2 (09:04→21:00)
[2018-08-04] MEDS: HumaLOG INSULIN (NovoLOG) PER UNIT SC SCH ×3 (09:08→17:30)
[2018-08-04 14:00] VITALS: BP 184/86
--- NOTE | 2018-08-04 14:15 | IPNPDOC ---
Date Seen The patient was seen on 08/04/18. Progress Note HPI: 68M pnh HTN and DM, left carotid artery stenosis s/p stenting, gout, CAD, ENEDINA, CKD3, recent GIB who initially presented to [facility] on 06/29/18 with reported seizures, arrived with a Arnav Coma Scale of 3, was given loading dose of Dilantin and intubated. CTH showed a right frontal mass so he was transferred to [facility] in [place], [place] for further work-up. At [place] MRI on 06-30-18 showed a 3cm by 3cm right frontal lobe lesion with a hemorrhagic component, possible neoplasm or less likley transformation of an infarction. He was found to have leukocytosis which was thought to be from seizure activity and remained afebrile. He had significant hyponatremia, acute on chronic CKD and elevated blood sugars managed with insulin. He was evaluated by neurosurgery and had a resection of his right frontal mass on 07/04/18 after which he was maintained on a Decadron taper and continued on Dilantin for seizure prophylaxis. He was evaluated by therapy and noted to have significant impairment in his ADLs and gait, and was deemed medically appropriate for transfer to [facility] ARU on 07-09-18, as per Dr Young, with pathology pending from his recent tumor resection. Pt denies any loose stools. Denies abdominal pain, N/V. OOB to chair. He reports no verbalized complaints at this time. He is anxious for discharge. Denies any fevers, chills, weakness, fatigue, STEPHENS, CP, palpitations. PE: GEN: 68yoM, appears stated age. Alert and oriented x 3. HEENT: Normocephalic, healing craniotomy scar. Sclera are nonicteric. Conjunctiva without injection. Moist mucous membranes. CHEST: Regular rate and rhythm, +S1, +S2 LUNGS: CTA. No wheezes, rales, or rhonchi appreciated. ABD: Round, soft, non-tender, non-distended. +Bowel sounds throughout. EXT: No lower extremity edema. SKIN: [place], dry, warm. No rashes. A&P: 1. Frontal cranial mass status post resection at [facility] in [place] on 07/05/2018. Mgmt as per ARU. PT/OT/ST as per ARU Pain control as per ARU DVT prophylaxis as per ARU, SQ Heparin. Outpt F/U with Neurosurgery. Continue on Decadron taper as per Neurosurgery. Continue on Dilantin seizure prophylaxis as per Neurosurgery. Dilantin dose adjusted as per attending to 175 Q8h, Dilantin level 08/02/18 14.3. Pt seen by Neurology. Outpt F/U planned. Seizure precautions. Slid OOB 07/14/18- CT head completed with no acute changes. Repeat CT 07/20/18 with no acute changes. 2. Recent C diff. PO Vanco changed to Dificid 07/16/18. Dificid x 10d completed 07/25/18. Continue Bacid 2 tab BID. Dificid Q2 days currently to prevent recurrent C diff while on antibiotic for UTI. 3. Hypokalemia. S/P po supplement . Monitor. 4. Hypomagnesemia. S/P mag run. Continue to monitor mag level. 5. Chronic kidney disease3. Nephrology following. Demadex 20 mg daily ON HOLD. Monitor. 6. Gout. On Uloric. Prednisone taper. 7. Hypertension. Medications being adjusted as per Dr. Young carvedilol 50mg mg BID. Hydralazine 75 mg Q8 with hold parameter. Norvasc discontinued Monitor BP control. 8. Coronary artery disease. ASA 9. Carotid stenosis, status post endarterectomy. 10. Congestive heart failure. Demadex ON HOLD Nephrology following. 10. Diabetes. Levemir d/cd 07/19/18, no further hypoglycemia. SSI Monitor 11. Benign prostatic hypertrophy (BPH). Flomax. 13. Anemia. Normocytic. Likely related to chronic disease/CKD. hgb 8.2. Fe studies, B12, folate 07/14/18. Folate supplement added. PRBC x 2 units 07/21. IV Venofer planned prior to discharge as per nephrology. Continue to monitor. 14. Recurrent UTI. E Coli. UC 07/18/18 pansensitive E coli. UC 07/20 E coli Pt treated with Fosfomycin x 3 doses completed 07/24/18 as per ID. Amoxicillin changed to po Nitrofurantoin 08/03 related to sensitivities, following discussion with ID as per Dr Young. ID following. 15. GI prophylaxis. HOLD PPI. Continue pepcid. VS, I&O, 24H, Fishbone Vital Signs/I&O Vital Signs Date Time Temp Pulse Resp B/P (MAP) Pulse Ox O2 Delivery O2 Flow Rate FiO2 08/04/18 14:06 18 08/04/18 12:00 126/58 08/04/18 09:01 68 08/04/18 06:00 97.0 95 I&O- Last 24 Hours up to 6 AM 08/04/18 06:00 Intake Total 1220 ml Output Total 650 ml Balance 570 ml Laboratory Data 24H LABS Laboratory Tests 2 08/03/18 16:37: Bedside Glucose (Misc Panel) 180H 08/03/18 19:49: Bedside Glucose (Misc Panel) 70L 08/04/18 05:46: Bedside Glucose (Misc Panel) 194H 08/04/18 07:20: Nucleated Red Blood Cells % (auto) 0.0, Anion Gap 8, Glomerular Filtration Rate 44.8L, Blood Urea Nitrogen 24H, Creatinine 1.64H, Sodium Level 140, Potassium Level 4.1, Chloride Level 107, Carbon Dioxide Level 25, Calcium Level 7.9L 08/04/18 11:34: Bedside Glucose (Misc Panel) 68L CBC/BMP Laboratory Tests 08/04/18 07:20 Red Blood Count 2.88 L, Mean Corpuscular Volume 88.9, Mean Corpuscular Hemoglobin 28.5, Mean Corpuscular Hemoglobin Concent 32.0, Red Cell Distribution Width 17.8 H, Calcium Level 7.9 L Microbiology Microbiology 07/30/18 Urine Culture - Final, Complete Escherichia Coli Saadia Campbell Aug 04, 2018 14:15
[2018-08-04] MEDS ORDERED: IRON SUCROSE 100MG 5ML VIAL (J1756 PER 1MG) IV ONE (16:45)
[2018-08-04] MEDS ORDERED: IRON SUCROSE 25 MG in NS 50 ML IV ONE (18:00)
[2018-08-04] MEDS ORDERED: IRON SUCROSE 275 MG in NS 250 ML IV ONE (19:00)
[2018-08-04 19:35] VITALS: BP 142/60
[2018-08-04 20:03] VITALS: BP 146/78
[2018-08-04] MEDS: ACETAMINOPHEN 500 MG TAB PO SCH (21:57)
[2018-08-04] MEDS: RAMELTEON 8 MG TAB (ROZEREM) PO SCH (21:57)
[2018-08-04] MEDS: TAMSULOSIN 0.4 MG CAP PO SCH (21:58)
[2018-08-04] MEDS: **NOTE PATIENT COMMENT** MISC XX SCH (22:00)
[2018-08-04] MEDS ORDERED: **hydrALAZINE HCL** 25 MG TAB PO SCH (22:00)
[2018-08-04 22:08] VITALS: BP 170/80
[2018-08-04 23:08] VITALS: BP 118/60
[2018-08-05] VITALS (7 sets, daily range): BP systolic 115–162; BP diastolic 60–85
[2018-08-05] MEDS: PHENYTOIN 50 MG CHEW TABLET PO SCH ×3 (06:02→21:55)
[2018-08-05] MEDS: **hydrALAZINE HCL** 25 MG TAB PO SCH ×3 (06:03→22:04)
[2018-08-05] MEDS: HumaLOG INSULIN (NovoLOG) PER UNIT SC SCH ×3 (07:30→17:47)
[2018-08-05] MEDS: IPRATROPIUM 0.5MG/ALBUTEROL 2.5MG INH SOL UD 3ML (DUONEB)(J7620) NEB SCH ×2 (07:52→19:48)
[2018-08-05] MEDS: FEBUXOSTAT 40 MG TABLET (ULORIC) PO SCH (08:43)
[2018-08-05] MEDS: CARVedilol 12.5 MG TAB PO SCH ×2 (08:43→21:55)
[2018-08-05] MEDS: LACTOBACILLUS ACIDOPHILUS CAP (BACID) PO SCH ×2 (08:43→17:47)
[2018-08-05] MEDS: predniSONE 10 MG TAB PO SCH ×2 (08:44→22:04)
[2018-08-05] MEDS: NITROFURANTOIN (MACROBID) 100 MG CAP PO SCH ×2 (08:44→21:54)
[2018-08-05] MEDS: FOLIC ACID 1 MG TAB PO SCH (08:44)
[2018-08-05] MEDS: CALCITRIOL 0.25 MCG CAP (S0169) PO SCH (08:44)
[2018-08-05] MEDS: guaiFENesin 200 MG TAB PO SCH ×3 (08:44→21:54)
[2018-08-05] MEDS: GEMFIBROZIL 600 MG TAB PO SCH ×2 (08:44→22:04)
[2018-08-05] MEDS: ASPIRIN 81 MG ENTERIC TAB PO SCH (08:44)
[2018-08-05] MEDS: FAMOTIDINE 20 MG TAB PO SCH ×2 (08:44→21:56)
[2018-08-05] MEDS: ANALGESIC BALM CRM 120 GM TOP SCH ×2 (08:50→22:06)
[2018-08-05] MEDS: LIDOCAINE 5% (LIDODERM) PATCH TD SCH (08:50)
[2018-08-05] MEDS: DIAPER RELIEF PASTE (DESITIN) 60GM TOP SCH ×2 (08:51→22:06)
[2018-08-05] MEDS ORDERED: OSELTAMIVIR PHOSPHATE 30MG CAPSULE PO ONE (12:00)
[2018-08-05] MEDS: ONDANSETRON 4 MG TAB (S0181) PO PRN (12:47)
[2018-08-05] MEDS: FIORICET TAB PO PRN (12:48)
--- NOTE | 2018-08-05 13:37 | IPNPDOC ---
PM&R Progress Note DATE OF SERVICE: Aug 04, 2018 [facility] Progress Note Subjective: Patient seen working in kitchen attempting to make a grilled ham and cheese sandwich. REVIEW OF SYSTEMS: The following is a completed review of systems and has been reviewed. Review of systems otherwise unremarkable. PAIN: Patient self reports bilateral chronic knee pain EYES: Negative for recent vision changes EARS, NOSE, & THROAT: dysphagia (resolved) denies rhinorrhea CARDIOVASCULAR: +sternal pain, otherwise no palpitations PULMONARY: Negative. Denies shortness of breath, cough resolved. GASTROINTESTINAL:+ diarrhea (resolved) GENITOURINARY: Negative for dysuria or hematuria, + retention (improved) MUSCULOSKELETAL: bilateral knee OA vs gout NEUROLOGICAL: s/p right frontal lobe resection , seizures HEMATOLOGICAL: Negative SKIN: sacral ulcer PSYCHIATRIC: Unremarkable All other review of systems found to be negative. PHYSICAL EXAMINATION: VITAL SIGNS: Please see below. GENERAL: Pleasant and cooperative. No acute distress. HEENT: PERRL. Extraocular movements intact. Clear conjunctiva, left facial droop (eyebrow sparing) CARDIOVASCULAR: Regular rate and rhythm. No murmurs, rubs, or gallops +TTP sternal palpation LUNGS: Clear to auscultation bilaterally. No wheezes. No rhonchi ABDOMEN: Soft, nontender, nondistended. Positive bowel sounds. Normal active bowel sound NEUROLOGICAL: Alert and oriented times to self and place, not time Cranial nerves II through XII grossly intact. Sensation grossly intact able to follow 2-step commands, however unable to perform Luria, +Apraxia EXTREMITIES:5\\5 strength bilateral upper extremities. >3/5 bilateral hip flexors and knee extensors, 5/5 bilateral ankle DF and EHL Bilateral knees warm to touch with effusion right wrist, non-tender to palpation Left mid-foot warm to touch and mild TTP SKIN: sacral ulcer, right frontal craniotonomy incision c/d/i ASSESSMENT:68-year-old M with past medical history of ENEDINA, HTN, CAD who presents status post right frontal mass resection with seizures. PLAN: 1. rehab: PTOT, [employer] advance diet, assess for DME- significant apraxia, able to participate more in therapy, ambulating further with RW, however cognition impaired, continue [employer] for cognitive tasks in OT for safe discharge to home 2. Neuro:s/p right frontal mass resection, pathology results, show "macrophagic infiltrate, hemosiderin and rare/scattered atypical glia...consistent with subac meredith infarction"- no concern at this time for malignancy -on Dilantin for seizures 125q8h, however levels low at 9.1, increased to 150 qh on 07/12/18 and on 07/19/18 8.6 increased to 175q8h- 10.8 on 07/26/18 and 14.3 on 08/02/18-will recheck 08/05/18 prior to discharge and provide script with outpatient neuro follow-up - neuro consult recs appreciated, s/p Decadron taper, will consider transition to Depakote given his impaired renal function -will need outpatient neuro f/u 2-4 weeks from discharge to review scans from [facility] and consider carotid US, he is s/p left CEA performed in by Dr. Rosa and currently has right carotid artery stenosis -reschedule surgery follow-up until 09/23/18 at 10:[address] Tello, path results do not suggest malignant tissue 3. Cardio: pmh HTn and HLD, hx of CHF, diuretics on hold per renal recs- medicine consulted, increased beta-ronda and added hydralazine for elevated BPs-imrproving 4. Resp: ENEDINA non-compliant with CPAP, cough improved, recent diagnosis of Rhinovirus, off droplet precautions now 5. Endo: pmh DM continue home meds and adjust prn 6. Rheum: pmh gout, continue Uloric, s/p recent short dose of prednisone for right wrist will consider another steroid dosing, patient encouraged to drink more water and avoid pepsi, continue prednisone taper for left foot 7. DVT ppx: continue heparin, US of right UE negative for DVT 8. GI ppx: omeprazole, patient found to have +C diff , given persistent diarrhea on Vancomycin, s/p 10 day course of Difficid 200mg BID with resolution of diarrhea, Dificid restarted to avoid recurrence while on antibiotics, will d/c precautions- ID recs appreciated 9. : admission UA and Ucx negative monitor PVRs- repeat Ua and Ucx positive for E. Coli, ID consulted, s/p Fosfomycin, recs appreciated-repeat Ucx positive for E. coli, continue 14 days of macrobid per ID recs-appreciated -Renal US ordered, results pending renal consulted for retention and metabolic acidosis s/p Bicarb drips recs appreciated 10. Heme: patient with anemia of chronic disease, given 2 units prbc per renal recs-appreciated 10. Pain: patient with headaches, Tylenol and Fioricet prn 11. Dispo: 08/02/18, slowly progressing towards goals, will request more time to work on safer discharge to home where he will not have 24/7 supervision, spoke with and she would prefer 08/06/18 for discharge and plans to obtain security camera and be home with him for 10 days for vacation Allergies Coded Allergies: No Known Allergies (Verified , 03/30/18) Vital Signs Vital Signs Date Time Temp Pulse Resp B/P (MAP) Pulse Ox O2 Delivery O2 Flow Rate FiO2 08/04/18 20:03 97.0 75 18 146/78 (100) 97 Laboratory Data CBC/BMP Laboratory Tests 08/04/18 07:20 Red Blood Count 2.88 L, Mean Corpuscular Volume 88.9, Mean Corpuscular Hemoglobin 28.5, Mean Corpuscular Hemoglobin Concent 32.0, Red Cell Distribution Width 17.8 H, Calcium Level 7.9 L Labs 24H Laboratory Tests 2 08/04/18 05:46: Bedside Glucose (Misc Panel) 194H 08/04/18 07:20: Nucleated Red Blood Cells % (auto) 0.0, Anion Gap 8, Glomerular Filtration Rate 44.8L, Blood Urea Nitrogen 24H, Creatinine 1.64H, Sodium Level 140, Potassium Level 4.1, Chloride Level 107, Carbon Dioxide Level 25, Calcium Level 7.9L 08/04/18 11:34: Bedside Glucose (Misc Panel) 68L 08/04/18 16:19: Bedside Glucose (Misc Panel) 145H 08/04/18 20:52: Bedside Glucose (Misc Panel) 111 Microbiology Microbiology 07/30/18 Urine Culture - Final, Complete Escherichia Coli Current Medications Current Medications Current Medications Acetaminophen (Tylenol Tab) 650 mg DAILY PRN PO fever Last administered on 07/29/18at 05:22; Start 07/09/18 at 21:00 Acetaminophen (Tylenol Tab) 1,000 mg QHS PO Last administered on 08/03/18at 21:54; Start 07/26/18 at 21:00 Acetaminophen (Tylenol Tab) 1,000 mg TID PO Last administered on 07/26/18 16:34; Start 07/09/18 at 21:00; Stop 07/26/18 at 18:28; Status DC Acetaminophen/ Butalbital/ Caffeine (Fioricet) 1 ea Q6HP PRN PO HEADACHE Last administered on 07/12/18 12:58; Start 07/12/18 at 11:00 Albuterol/ Ipratropium (Duoneb (Ipr 0.5mg/Alb 2.5mg)) 3 ml BID NEB ; Start 07/14/18 at 21:00; Status UNV Albuterol/ Ipratropium (Duoneb (Ipr 0.5mg/Alb 2.5mg)) 3 ml Q4HP PRN NEB SOB/WHEEZING Last administered on 07/29/18 01:12; Start 07/29/18 at 01:00 Albuterol/ Ipratropium (Duoneb (Ipr 0.5mg/Alb 2.5mg)) 3 ml RBID NEB Last ad ministered on 08/04/18 20:06; Start 07/10/18 at 08:00 Amlodipine Besylate (Norvasc) 10 mg DAILY PO Last administered on 08/03/18 08:46; Start 07/10/18 at 09:00; Stop 08/03/18 at 09:51; Status DC Amoxicillin (Amoxicillin) 500 mg Q8H PO Last administered on 08/02/18 05:13; Start 07/30/18 at 14:00; Stop 08/02/18 at 11:56; Status DC Ampicillin Sodium 500 mg/Dextrose 50 ml @ 100 mls/hr Q6H IV ; Start 07/30/18 at 18:00; Stop 07/30/18 at 18:00; Status DC Aspirin (Ecotrin) 81 mg DAILY PO Last administered on 08/04/18 09:02; Start 07/10/18 at 09:00 Bisacodyl (Dulcolax Suppository) 10 mg DAILYPRN PRN [place] CONSTIPATION; Start 07/09/18 at 21:15; Stop 07/20/18 at 14:26; Status DC Calcitriol (Rocaltrol) 0.25 mcg DAILY PO Last administered on 08/04/18 09:03; Start 07/10/18 at 09:00 Calcium Carbonate (Tums) 500 mg DAILYPRN PRN PO INDIGESTION Last administered on 07/20/18 01:22; Start 07/19/18 at 20:00 Carvedilol (COReg) 12.5 mg BID PO Last administered on 07/14/18at 09:03; Start 07/09/18 at 21:00; Stop 07/14/18 at 11:08; Status DC Carvedilol (COReg) 25 mg BID PO Last administered on 07/19/18at 08:40; Start 07/14/18 at 21:00; Stop 07/19/18 at 10:30; Status DC Carvedilol (COReg) 37.5 mg BID PO Last administered on 07/25/18 08:48; Start 07/19/18 at 21:00; Stop 07/25/18 at 18:46; Status DC Carvedilol (COReg) 50 mg BID PO Last administered on 08/04/18 09:01; Start 07/25/18 at 21:00 Cefepime HCl 1 gm/ Dextrose 50 ml @ 100 mls/hr Q24H IV Last administered on 07/20/18 15:15; Start 07/20/18 at 13:00; Stop 07/20/18 at 19:38; Status DC Cod Liver Oil/ Zinc Oxide (Desitin) apply to sacrum BID TOP Last administered on 08/04/18at 09:00; Start 07/10/18 at 09:00 Dexamethasone (Decadron) 2 mg DAILY PO Last administered on 07/20/18at 10:34; Start 07/16/18 at 09:00; Stop 07/21/18 at 08:59; Status DC Dexamethasone (Decadron) 2 mg DAILY PO ; Start 07/18/18 at 09:00; Stop 07/18/18 at 09:00; Status DC Dexamethasone (Decadron) 2 mg Q12H PO Last administered on 07/15/18at 21:09; Start 07/13/18 at 21:00; Stop 07/15/18 at 21:55; Status DC Dexamethasone (Decadron) 4 mg Q12H PO Last administered on 07/13/18at 08:35; Start 07/09/18 at 21:00; Stop 07/13/18 at 20:59; Status DC Dextrose (Dextrose 50%) 25 ml ASDIRECTED PRN IV SEE LABEL COMMENTS; Start 07/09/18 at 21:00 Dextrose (Dextrose 50%) 25 ml ASDIRECTED PRN IV SEE LABEL COMMENTS; Start 07/30/18 at 20:00; Status UNV Famotidine (Pepcid) 10 mg BID PO Last administered on 08/04/18at 09:01; Start 07/12/18 at 15:00 Febuxostat (Uloric) 120 mg DAILY PO Last administered on 08/04/18at 09:02; Start 07/10/18 at 09:00 Fidaxomicin (Dificid) 200 mg BID PO Last administered on 07/25/18at 21:55; Start 07/16/18 at 11:45; Stop 07/25/18 at 21:01; Status DC Fidaxomicin (Dificid) 200 mg BID PO Last administered on 08/04/18at 09:03; Start 07/30/18 at 21:00; Stop 08/04/18 at 09:01; Status DC Fidaxomicin (Dificid) 200 mg Q2D PO ; Start 08/06/18 at 09:00 Folic Acid (Folic Acid) 1 mg DAILY PO Last administered on 08/04/18at 09:03; Start 07/16/18 at 09:00 Fosfomycin Tromethamine (Monurol) 3 gm Q2D PO Last administered on 07/24/18at 08:52; Start 07/22/18 at 09:00; Stop 07/24/18 at 12:00; Status DC Gemfibrozil (Lopid) 600 mg BID PO Last administered on 08/04/18at 09:03; Start 07/09/18 at 21:00 Glucagon (Glucagon) 1 mg ASDIRECTED PRN SC SEE LABEL COMMENTS; Start 07/09/18 at 21:00 Glucagon (Glucagon) 1 mg ASDIRECTED PRN SC SEE LABEL COMMENTS; Start 07/30/18 at 20:00; Status UNV Glucose (Glucose) 16 GM ASDIRECTED PRN PO SEE LABEL COMMENTS; Start 07/09/18 at 21:00 Glucose (Glucose) 16 GM ASDIRECTED PRN PO SEE LABEL COMMENTS; Start 07/30/18 at 20:00; Status UNV Guaifenesin (Robitussin Tab) 400 mg TID PO Last administered on 08/04/18at 09:02; Start 07/10/18 at 09:00 Guaifenesin (Robitussin Tab) 400 mg TID PO ; Start 07/14/18 at 21:00; Stop 07/14/18 at 21:00; Status DC Heparin Sodium (Porcine) (Heparin) 5,000 units Q8H SQ Last administered on 07/28/18at 05:29; Start 07/09/18 at 22:00; Stop 07/28/18 at 10:00; Status DC Home Med (Med Rec Complete!) ASDIRECTED XX ; Start 07/09/18 at 23:00; Stop 07/09/18 at 23:00; Status DC Hydralazine HCl (Apresoline) 25 mg Q6H PO Last administered on 07/23/18at 05:52; Start 07/20/18 at 12:00; Stop 07/23/18 at 11:52; Status DC Hydralazine HCl (Apresoline) 50 mg Q6H PO Last administered on 08/03/18at 06:22; Start 07/23/18 at 12:00; Stop 08/03/18 at 09:51; Status DC Hydralazine HCl (Apresoline) 75 mg Q6H PO Last administered on 08/04/18at 05:25; Start 08/03/18 at 12:00; Stop 08/04/18 at 13:58; Status DC Hydralazine HCl (Apresoline) 75 mg Q8H PO Last administered on 08/04/18at 16:39; Start 08/04/18 at 14:00 Hydralazine HCl (Apresoline) 75 mg Q8H PO ; Start 08/04/18 at 22:00; Stop 08/04 at 22:00; Status DC Insulin Detemir (Levemir Insulin) 5 units QHS SC Last administered on 08/01/18at 20:57; Start 07/30/18 at 21:00; Stop 08/04/18 at 13:49; Status DC Insulin Detemir (Levemir Insulin) 10 units QHS SC Last administered on 07/16/18at 21:49; Start 07/15/18 at 21:00; Stop 07/19/18 at 13:01; Status DC Insulin Detemir (Levemir Insulin) 20 units QHS SC Last administered on 07/14/18 at 22:04; Start 07/09/18 at 21:00; Stop 07/15/18 at 14:20; Status DC Insulin Human Lispro (HumaLOG INSULIN) SEE PROTOCOL TABLE AC SC Last administered on 07/27/18at 07:52; Start 07/10/18 at 07:30; Stop 07/27/18 at 11:01; Status DC Insulin Human Lispro (HumaLOG INSULIN) SEE PROTOCOL TABLE AC SC Last administered on 08/04/18at 09:08; Start 07/31/18 at 07:30 Lactobacillus Acidophilus (Bacid) 1 ea BIDWM PO Last administered on 07/14/18at 08:59; Start 07/11/18 at 08:00; Stop 07/14/18 at 13:09; Status DC Lactobacillus Acidophilus (Bacid) 1 ea TID PO ; Start 07/30/18 at 16:00; Stop 07/30/18 at 16:00; Status DC Lactobacillus Acidophilus (Bacid) 2 ea BIDWM PO Last administered on 08/04/18at 17:46; Start 07/14/18 at 18:00 Lidocaine (Lidoderm Patch) 1 patch DAILY TD Last administered on 08/02/18at 09: 04; Start 07/10/18 at 09:00 Lorazepam (Ativan) 2 mg Q6H PRN IV SEIZURES; Start 07/10/18 at 02:30; Stop 07/22/18 at 12:01; Status DC Magnesium Hydroxide (Milk Of Magnesia) 30 ml DAILYPRN PRN PO CONSTIPATION; Start 07/09/18 at 21:15; Stop 07/20/18 at 14:26; Status DC Menthol/Methyl Salicylate (Bengay Cream) 1 dose BID TOP Last administered on 08/04/18at 09:04; Start 07/30/18 at 09:00 Metronidazole (Flagyl) 500 mg Q8H PO Last administered on 07/11/18at 05:01; Start 07/11/18 at 04:00; Stop 07/11/18 at 07:12; Status DC Miscellaneous (Unresolved Clarification Entry) SEE LABEL COMMENTS DAILY XX ; Start 07/21/18 at 09:00; Stop 07/22/18 at 07:12; Status DC Miscellaneous (Unresolved Clarification Entry) SEE LABEL COMMENTS DAILY XX ; Start 07/22/18 at 09:00; Stop 07/23/18 at 04:46; Status DC Nitrofurantoin Monoh/Nitrofur Macro (Macrobid) 100 mg BID PO Last administered on 08/04/18 09:02; Start 08/02/18 at 09:00; Stop 08/08/18 at 21:01 Non-Formulary Medication ( See Comment Field Below ) REMOVE LIDODERM PATCH DAILY@21 XX Last administered on 08/02/18at 21:00; Start 07/09/18 at 21:00 Omeprazole (PriLOSEC) 40 mg QHS PO Last administered on 07/11/18at 22:26; Start 07/09/18 at 21:00; Stop 07/12/18 at 14:39; Status DC Ondansetron HCl (Zofran) 4 mg Q6HP PRN PO NAUSEA Last administered on 07/28/18 08:47; Start 07/09/18 at 21:15 Phenytoin (Dilantin Chewable) 125 mg Q8H PO Last administered on 07/12/18at 05:49; Start 07/09/18 at 22:00; Stop 07/12/18 at 10:30; Status DC Phenytoin (Dilantin Chewable) 150 mg Q8H PO Last administered on 07/19/18at 13:01; Start 07/12/18 at 14:00; Stop 07/19/18 at 15:37; Status DC Phenytoin (Dilantin Chewable) 175 mg Q8H PO Last administered on 08/04/18at 13:50; Start 07/19/18 at 22:00 Potassium Chloride (Micro-K Extencaps) 20 meq DAILY PO Last administered on 07/17/18at 10:19; Start 07/12/18 at 09:00; Stop 07/17/18 at 11:48; Status DC Prednisone (Deltasone) 5 mg DAILY PO ; Start 08/09/18 at 09:00; Stop 08/11/18 at 09:01 Prednisone (Deltasone) 10 mg BID PO Last administered on 08/04/18at 09:03; Start 08/03/18 at 09:00; Stop 08/05/18 at 21:01 Prednisone (Deltasone) 10 mg DAILY PO ; Start 08/06/18 at 09:00; Stop 08/08/18 at 09:01 Prednisone (Deltasone) 15 mg BID PO Last administered on 08/02/18at 21:42; Start 07/31/18 at 09:00; Stop 08/02/18 at 21:01; Status DC Prednisone (Deltasone) 20 mg BID PO Last administered on 07/25/18at 08:47; Start 07/23/18 at 21:00; Stop 07/25/18 at 10:00; Status DC Prednisone (Deltasone) 20 mg BID PO Last administered on 07/30/18at 22:55; Start 07/28/18 at 09:00; Stop 07/30/18 at 21:01; Status DC Ramelteon (Rozerem) 8 mg QHS PO Last administered on 08/03/18 21:52; Start 07/28/18 at 21:00 Senna/Docusate Sodium (Senokot S) 1 tab BID PO Last administered on 07/11/18at 22:23; Start 07/10/18 at 09:00; Stop 07/12/18 at 14:39; Status DC Sodium Bicarbonate 150 meq/Sterile Water 1,150 ml @ 60 mls/hr [id number] IV Last administered on 07/22/18at 17:42; Start 07/20/18 at 09:00; Stop 07/23/18 at 04:19; Status DC Sodium Bicarbonate 150 meq/Sterile Water 1,150 ml @ 60 mls/hr [id number] IV ; Start 07/23/18 at 08:00; Stop 07/23/18 at 08:00; Status DC Tamsulosin HCl (Flomax) 0.4 mg QHS PO Last administered on 08/03/18 21:52; Start 07/09/18 at 21:00 Torsemide (Demadex) 20 mg DAILY PO Last administered on 07/29/18at 09:25; Start 07/28/18 at 12:00; Stop 07/30/18 at 09:40; Status DC Torsemide (Demadex) 50 mg BID@09,17 PO ; Start 07/10/18 at 09:00; Stop 07/10/18 at 09:24; Status DC Trazodone HCl (Desyrel) 25 mg QHSP PRN PO INSOMNIA Last administered on 07/29/18at 23:17; Start 07/09/18 at 21:00 Vancomycin HCl (First-Vancomycin 50(Firvanq)- 250mg/5ml) 125 mg Q6H PO Last administered on 07/16/18at 05:44; Start 07/11/18 at 06:00; Stop 07/16/18 at 11:37; Status DC Zinc Oxide (Boudreauxs Butt Paste) sacrum BID TOP ; Start 07/10/18 at 09:00; Stop 07/10/18 at 13:02; Status DC ESTRELLITA STANTON MD Aug 04, 2018 21:28
--- NOTE | 2018-08-05 13:47 | IPNPDOC ---
PM&R Progress Note DATE OF SERVICE: Aug 05, 2018 [employer] Progress Note Subjective: Patient seen in gym anxious to go home tomorrow. REVIEW OF SYSTEMS: The following is a completed review of systems and has been reviewed. Review of systems otherwise unremarkable. PAIN: Patient self reports bilateral chronic knee pain EYES: Negative for recent vision changes EARS, NOSE, & THROAT: dysphagia (resolved) denies rhinorrhea CARDIOVASCULAR: +sternal pain, otherwise no palpitations PULMONARY: Negative. Denies shortness of breath, cough resolved. GASTROINTESTINAL:+ diarrhea (resolved) GENITOURINARY: Negative for dysuria or hematuria, + retention (improved) MUSCULOSKELETAL: bilateral knee OA vs gout NEUROLOGICAL: s/p right frontal lobe resection , seizures HEMATOLOGICAL: Negative SKIN: sacral ulcer PSYCHIATRIC: Unremarkable All other review of systems found to be negative. PHYSICAL EXAMINATION: VITAL SIGNS: Please see below. GENERAL: Pleasant and cooperative. No acute distress. HEENT: PERRL. Extraocular movements intact. Clear conjunctiva, left facial droop (eyebrow sparing) CARDIOVASCULAR: Regular rate and rhythm. No murmurs, rubs, or gallops +TTP sternal palpation LUNGS: Clear to auscultation bilaterally. No wheezes. No rhonchi ABDOMEN: Soft, nontender, nondistended. Positive bowel sounds. Normal active bowel sound NEUROLOGICAL: Alert and oriented times to self and place, not time Cranial nerves II through XII grossly intact. Sensation grossly intact able to follow 2-step commands, however unable to perform Luria, +Apraxia EXTREMITIES:5\\5 strength bilateral upper extremities. >3/5 bilateral hip flexors and knee extensors, 5/5 bilateral ankle DF and EHL Bilateral knees warm to touch with effusion right wrist, non-tender to palpation Left mid-foot mild TTP- SKIN: sacral ulcer, right frontal craniotonomy incision c/d/i ASSESSMENT:68-year-old M with past medical history of ENEDINA, HTN, CAD who presents status post right frontal mass resection with seizures. PLAN: 1. rehab: PTOT, [employer] advance diet, assess for DME- significant apraxia, able to participate more in therapy, ambulating further with RW, however cognition impaired, continue [employer]IAN [employer] for cognitive tasks in OT for safe discharge to home 2. Neuro:s/p right frontal mass resection, pathology results, show "macrophagic infiltrate, hemosiderin and rare/scattered atypical glia...consistent with subacute infarction"- no concern at this time for malignancy -on Dilantin for seizures 125q8h, however levels low at 9.1, increased to 150 qh on 07/12/18 and on 07/19/18 8.6 increased to 175q8h- 10.8 on 07/26/18 and 14.3 on 08/02/18-will recheck 08/05/18 prior to discharge and provide script with outpatient neuro follow-up - neuro consult recs appreciated, s/p Decadron taper, will consider transition to Depakote given his impaired renal function -will need outpatient neuro f/u 2-4 weeks from discharge to review scans from [facility] and consider carotid US, he is s/p left CEA performed in by Dr. Rosa and currently has right carotid artery stenosis -reschedule surgery follow-up until 09/23/18 at 10:[address] Tello, path results do not suggest malignant tissue, "macrophagic infiltrate, hemosiderin and rare/scattered atypical glia...consistent with subacute infarction"- no concern at this time for malignancy 3. Cardio: pmh HTn and HLD, hx of CHF, diuretics on hold per renal recs- medicine consulted, increased beta-ronda and added hydralazine for elevated BPs-imrproving 4. Resp: ENEDINA non-compliant with CPAP, cough improved, recent diagnosis of Rhinovirus, off droplet precautions now 5. Endo: pmh DM continue home meds and adjust prn 6. Rheum: pmh gout, continue Uloric, s/p recent short dose of prednisone for right wrist will consider another steroid dosing, patient encouraged to drink more water and avoid pepsi, continue prednisone taper for left foot 7. DVT ppx: continue heparin, US of right UE negative for DVT 8. GI ppx: omeprazole, patient found to have +C diff , given persistent diarrhea on Vancomycin, s/p 10 day course of Difficid 200mg BID with resolution of diarrhea, Dificid restarted to avoid recurrence while on antibiotics, will d/c precautions- ID recs appreciated 9. : admission UA and Ucx negative monitor PVRs- repeat Ua and Ucx positive for E. Coli, ID consulted, s/p Fosfomycin, recs appreciated-repeat Ucx positive for E. coli, continue 14 days of macrobid per ID recs-appreciated -Renal US ordered, results pending renal consulted for retention and metabolic acidosis s/p Bicarb drips recs appreciated 10. Heme: patient with anemia of chronic disease, given 2 units prbc per renal recs-appreciated 10. Pain: patient with headaches, Tylenol and Fioricet prn 11. ID: will give prophylactic dose of Tamiflu today as patient's son recently diagnosed with the flu but has not had fevers and with mild runny nose at home, discussed importance of sanitation, and the use of masks in the home until the son's respiratory symptoms resolved- patient's understands the risks and would prefer he comes home tomorrow 11. Dispo: 08/02/18, slowly progressing towards goals, will request more time to work on safer discharge to home where he will not have 24/ supervision, spoke with and she would prefer 08/06/18 for discharge and plans to obtain security camera and be home with him for 10 days for vacation Allergies Coded Allergies: No Known Allergies (Verified , 03/30/18) Vital Signs Vital Signs Date Time Temp Pulse Resp B/P (MAP) Pulse Ox O2 Delivery O2 Flow Rate FiO2 08/05/18 12:48 20 08/05/18 08:43 70 154/80 08/05/18 06:00 97.7 96 Laboratory Data Labs 24H Laboratory Tests 2 08/04/18 16:19: Bedside Glucose (Misc Panel) 145H 08/04/18 20:52: Bedside Glucose (Misc Panel) 111 08/05/18 05:52: Bedside Glucose (Misc Panel) 150H 08/05/18 06:54: Phenytoin (Dilantin) Level 15.7 08/05/18 11:59: Bedside Glucose (Misc Panel) 119H Microbiology Microbiology 07/30/18 Urine Culture - Final, Complete Escherichia Coli Current Medications Current Medications Current Medications Acetaminophen (Tylenol Tab) 650 mg DAILY PRN PO fever Last administered on 07/29/18at 05:22; Start 07/09/18 at 21:00 Acetaminophen (Tylenol Tab) 1,000 mg QHS PO Last administered on 08/04/18at 21:57; Start 07/26/18 at 21:00 Acetaminophen (Tylenol Tab) 1,000 mg TID PO Last administered on 2/4/19at 16:34; Start 07/09/18 at 21:00; Stop 07/26/18 at 18:28; Status DC Acetaminophen/ Butalbital/ Caffeine (Fioricet) 1 ea Q6HP PRN PO HEADACHE Last administered on 08/05/18 12:48; Start 07/12/18 at 11:00 Albuterol/ Ipratropium (Duoneb (Ipr 0.5mg/Alb 2.5mg)) 3 ml BID NEB ; Start 07/14/18 at 21:00; Status UNV Albuterol/ Ipratropium (Duoneb (Ipr 0.5mg/Alb 2.5mg)) 3 ml Q4HP PRN NEB SOB/WHEEZING Last administered on 07/29/18 01:12; Start 07/29/18 at 01:00 Albuterol/ Ipratropium (Duoneb (Ipr 0.5mg/Alb 2.5mg)) 3 ml RBID NEB Last administered on 08/05/18 07:52; Start 07/10/18 at 08:00 Amlodipine Besylate (Norvasc) 10 mg DAILY PO Last administered on 08/03/18 08:46; Start 07/10/18 at 09:00; Stop 08/03/18 at 09:51; Status DC Amoxicillin (Amoxicillin) 500 mg Q8H PO Last administered on 08/02/18 05:13; Start 07/30/18 at 14:00; Stop 08/02/18 at 11:56; Status DC Ampicillin Sodium 500 mg/Dextrose 50 ml @ 100 mls/hr Q6H IV ; Start 07/30/18 at 18:00; Stop 07/30/18 at 18:00; Status DC Aspirin (Ecotrin) 81 mg DAILY PO Last administered on 08/05/18 08:44; Start 07/10/18 at 09:00 Bisacodyl (Dulcolax Suppository) 10 mg DAILYPRN PRN NC CONSTIPATION; Start 07/09/18 at 21:15; Stop 07/20/18 at 14:26; Status DC Calcitriol (Rocaltrol) 0.25 mcg DAILY PO Last administered on 08/05/18 08:44; Start 07/10/18 at 09:00 Calcium Carbonate (Tums) 500 mg DAILYPRN PRN PO INDIGESTION Last administered on 07/20/18at 01:22; Start 07/19/18 at 20:00 Carvedilol (COReg) 12.5 mg BID PO Last administered on 07/14/18at 09:03; Start 07/09/18 at 21:00; Stop 07/14/18 at 11:08; Status DC Carvedilol (COReg) 25 mg BID PO Last administered on 07/19/18at 08:40; Start 07/14/18 at 21:00; Stop 07/19/18 at 10:30; Status DC Carvedilol (COReg) 37.5 mg BID PO Last administered on 07/25/18 08:48; Start 07/19/18 at 21:00; Stop 07/25/18 at 18:46; Status DC Carvedilol (COReg) 50 mg BID PO Last administered on 08/05/18at 08:43; Start 07/25/18 at 21:00 Cefepime HCl 1 gm/ Dextrose 50 ml @ 100 mls/hr Q24H IV Last administered on 07/20/18at 15:15; Start 07/20/18 at 13:00; Stop 07/20/18 at 19:38; Status DC Cod Liver Oil/ Zinc Oxide (Desitin) apply to sacrum BID TOP Last administered on 08/05/18at 08:51; Start 07/10/18 at 09:00 Dexamethasone (Decadron) 2 mg DAILY PO Last administered on 07/20/18at 10:34; Start 07/16/18 at 09:00; Stop 07/21/18 at 08:59; Status DC Dexamethasone (Decadron) 2 mg DAILY PO ; Start 07/18/18 at 09:00; Stop 07/18/18 at 09:00; Status DC Dexamethasone (Decadron) 2 mg Q12H PO Last administered on 07/15/18at 21:09; Start 07/13/18 at 21:00; Stop 07/15/18 at 21:55; Status DC Dexamethasone (Decadron) 4 mg Q12H PO Last administered on 07/13/18at 08:35; Start 07/09/18 at 21:00; Stop 07/13/18 at 20:59; Status DC Dextrose (Dextrose 50%) 25 ml ASDIRECTED PRN IV SEE LABEL COMMENTS; Start 07/09/18 at 21:00 Dextrose (Dextrose 50%) 25 ml ASDIRECTED PRN IV SEE LABEL COMMENTS; Start 07/30/18 at 20:00; Status UNV Famotidine (Pepcid) 10 mg BID PO Last administered on 08/05/18at 08:44; Start 07/12/18 at 15:00 Febuxostat (Uloric) 120 mg DAILY PO Last administered on 08/05/18at 08:43; Start 07/10/18 at 09:00 Fidaxomicin (Dificid) 200 mg BID PO Last administered on 07/25/18at 21:55; Start 07/16/18 at 11:45; Stop 07/25/18 at 21:01; Status DC Fidaxomicin (Dificid) 200 mg BID PO Last administered on 08/04/18at 09:03; Start 07/30/18 at 21:00; Stop 08/04/18 at 09:01; Status DC Fidaxomicin (Dificid) 200 mg Q2D PO ; Start 08/06/18 at 09:00 Folic Acid (Folic Acid) 1 mg DAILY PO Last administered on 08/05/18at 08:44; Start 07/16/18 at 09:00 Fosfomycin Tromethamine (Monurol) 3 gm Q2D PO Last administered on 07/24/18 08:52; Start 07/22/18 at 09:00; Stop 07/24/18 at 12:00; Status DC Gemfibrozil (Lopid) 600 mg BID PO Last administered on 08/05/18at 08:44; Start 07/09/18 at 21:00 Glucagon (Glucagon) 1 mg ASDIRECTED PRN SC SEE LABEL COMMENTS; Start 07/09/18 at 21:00 Glucagon (Glucagon) 1 mg ASDIRECTED PRN SC SEE LABEL COMMENTS; Start 07/30/18 at 20:00; Status UNV Glucose (Glucose) 16 GM ASDIRECTED PRN PO SEE LABEL COMMENTS; Start 07/09/18 at 21:00 Glucose (Glucose) 16 GM ASDIRECTED PRN PO SEE LABEL COMMENTS; Start 07/30/18 at 20:00; Status UNV Guaifenesin (Robitussin Tab) 400 mg TID PO Last administered on 2/13/19at 09:02; Start 07/10/18 at 09:00 Guaifenesin (Robitussin Tab) 400 mg TID PO ; Start 07/14/18 at 21:00; Stop 07/14/18 at 21:00; Status DC Heparin Sodium (Porcine) (Heparin) 5,000 units Q8H SQ Last administered on 07/28/18at 05:29; Start 07/09/18 at 22:00; Stop 07/28/18 at 10:00; Status DC Home Med (Med Rec Complete!) ASDIRECTED XX ; Start 07/09/18 at 23:00; Stop 07/09/18 at 23:00; Status DC Hydralazine HCl (Apresoline) 25 mg Q6H PO Last administered on 07/23/18at 05:52; Start 07/20/18 at 12:00; Stop 07/23/18 at 11:52; Status DC Hydralazine HCl (Apresoline) 50 mg Q6H PO Last administered on 08/03/18at 06:22; Start 07/23/18 at 12:00; Stop 08/03/18 at 09:51; Status DC Hydralazine HCl (Apresoline) 75 mg Q6H PO Last administered on 08/04/18at 05:25; Start 08/03/18 at 12:00; Stop 08/04/18 at 13:58; Status DC Hydralazine HCl (Apresoline) 75 mg Q8H PO Last administered on 08/05/18at 06:03; Start 08/04/18 at 14:00 Hydralazine HCl (Apresoline) 75 mg Q8H PO ; Start 08/04/18 at 22:00; Stop 08/04/18 at 22:00; Status DC Insulin Detemir (Levemir Insulin) 5 units QHS SC Last administered on 08/01/18at 20:57; Start 07/30/18 at 21:00; Stop 08/04/18 at 13:49; Status DC Insulin Detemir (Levemir Insulin) 10 units QHS SC Last administered on 07/16/18at 21:49; Start 07/15/18 at 21:00; Stop 07/19/18 at 13:01; Status DC Insulin Detemir (Levemir Insulin) 20 units QHS SC Last administered on 07/14/18at 22:04; Start 07/09/18 at 21:00; Stop 07/15/18 at 14:20; Status DC Insulin Human Lispro (HumaLOG INSULIN) SEE PROTOCOL TABLE AC SC Last administered on 07/27/18at 07:52; Start 07/10/18 at 07:30; Stop 07/27/18 at 11:01; Status DC Insulin Human Lispro (HumaLOG INSULIN) SEE PROTOCOL TABLE AC SC Last administered on 08/04/18at 09:08; Start 07/31/18 at 07:30 Lactobacillus Acidophilus (Bacid) 1 ea BIDWM PO Last administered on 07/14/18at 08:59; Start 07/11/18 at 08:00; Stop 07/14/18 at 13:09; Status DC Lactobacillus Acidophilus (Bacid) 1 ea TID PO ; Start 07/30/18 at 16:00; Stop 07/30/18 at 16:00; Status DC Lactobacillus Acidophilus (Bacid) 2 ea BIDWM PO Last administered on 08/05/18at 08:43; Start 07/14/18 at 18:00 Lidocaine (Lidoderm Patch) 1 patch DAILY TD Last administered on 08/02/18at 09:04; Start 07/10/18 at 09:00 Lorazepam (Ativan) 2 mg Q6H PRN IV SEIZURES; Start 07/10/18 at 02:30; Stop 07/22/18 at 12:01; Status DC Magnesium Hydroxide (Milk Of Magnesia) 30 ml DAILYPRN PRN PO CONSTIPATION; Start 07/09/18 at 21:15; Stop 07/20/18 at 14:26; Status DC Menthol/Methyl Salicylate (Bengay Cream) 1 dose BID TOP Last administered on 08/05/18at 08:50; Start 07/30/18 at 09:00 Metronidazole (Flagyl) 500 mg Q8H PO Last administered on 07/11/18at 05:01; Start 07/11/18 at 04:00; Stop 07/11/18 at 07:12; Status DC Miscellaneous (Unresolved Clarification Entry) SEE LABEL COMMENTS DAILY XX ; Start 07/21/18 at 09:00; Stop 07/22/18 at 07:12; Status DC Miscellaneous (Unresolved Clarification Entry) SEE LABEL COMMENTS DAILY XX ; Start 07/22/18 at 09:00; Stop 07/23/18 at 04:46; Status DC Nitrofurantoin Monoh/Nitrofur Macro (Macrobid) 100 mg BID PO Last administered on 08/05/18at 08:44; Start 08/02/18 at 09:00; Stop 08/08/18 at 21:01 Non-Formulary Medication ( See Comment Field Below ) REMOVE LIDODERM PATCH DAILY@21 XX Last administered on 08/04/18at 22:00; Start 07/09/18 at 21:00 Omeprazole (PriLOSEC) 40 mg QHS PO Last administered on 07/11/18at 22:26; Start 07/09/18 at 21:00; Stop 07/12/18 at 14:39; Status DC Ondansetron HCl (Zofran) 4 mg Q6HP PRN PO NAUSEA Last administered on 08/05/18at 12:47; Start 07/09/18 at 21:15 Phenytoin (Dilantin Chewable) 125 mg Q8H PO Last administered on 07/12/18at 05:49; Start 07/09/18 at 22:00; Stop 07/12/18 at 10:30; Status DC Phenytoin (Dilantin Chewable) 150 mg Q8H PO Last administered on 07/19/18at 13:01; Start 07/12/18 at 14:00; Stop 07/19/18 at 15:37; Status DC Phenytoin (Dilantin Chewable) 150 mg Q8H PO ; Start 08/05/18 at 14:00 Phenytoin (Dilantin Chewable) 175 mg Q8H PO Last administered on 08/05/18at 06:02; Start 07/19/18 at 22:00; Stop 08/05/18 at 10:54; Status DC Potassium Chloride (Micro-K Extencaps) 20 meq DAILY PO Last administered on 07/17/18at 10:19; Start 07/12/18 at 09:00; Stop 07/17/18 at 11:48; Status DC Prednisone (Deltasone) 5 mg DAILY PO ; Start 08/09/18 at 09:00; Stop 08/11/18 at 09:01 Prednisone (Deltasone) 10 mg BID PO Last administered on 08/05/18 08:44; Start 08/03/18 at 09:00; Stop 08/05/18 at 21:01 Prednisone (Deltasone) 10 mg DAILY PO ; Start 08/06/18 at 09:00; Stop 08/08/18 at 09:01 Prednisone (Deltasone) 15 mg BID PO Last administered on 08/02/18 21:42; Start 07/31/18 at 09:00; Stop 08/02/18 at 21:01; Status DC Prednisone (Deltasone) 20 mg BID PO Last administered on 07/25/18 08:47; Start 07/23/18 at 21:00; Stop 07/25/18 at 10:00; Status DC Prednisone (Deltasone) 20 mg BID PO Last administered on 07/30/18 22:55; Start 07/28/18 at 09:00; Stop 07/30/18 at 21:01; Status DC Ramelteon (Rozerem) 8 mg QHS PO Last administered on 08/04/18 21:57; Start 07/28/18 at 21:00 Senna/Docusate Sodium (Senokot S) 1 tab BID PO Last administered on 07/11/18at 22:23; Start 07/10/18 at 09:00; Stop 07/12/18 at 14:39; Status DC Sodium Bicarbonate 150 meq/Sterile Water 1,150 ml @ 60 mls/hr [id number] IV Last administered on 07/22/18at 17:42; Start 07/20/18 at 09:00; Stop 07/23/18 at 04:19; Status DC Sodium Bicarbonate 150 meq/Sterile Water 1,150 ml @ 60 mls/hr [id number] IV ; Start 07/23/18 at 08:00; Stop 07/23/18 at 08:00; Status DC Tamsulosin HCl (Flomax) 0.4 mg QHS PO Last administered on 08/04/18 21:58; Start 07/09/18 at 21:00 Torsemide (Demadex) 20 mg DAILY PO Last administered on 07/29/18 09:25; Start 07/28/18 at 12:00; Stop 07/30/18 at 09:40; Status DC Torsemide (Demadex) 50 mg BID@09,17 PO ; Start 07/10/18 at 09:00; Stop 07/10/18 at 09:24; Status DC Trazodone HCl (Desyrel) 25 mg QHSP PRN PO INSOMNIA Last administered on 07/29/18at 23:17; Start 07/09/18 at 21:00 Vancomycin HCl (First-Vancomycin 50(Firvanq)- 250mg/5ml) 125 mg Q6H PO Last administered on 07/16/18at 05:44; Start 07/11/18 at 06:00; Stop 07/16/18 at 11:37; Status DC Zinc Oxide (Boudreauxs Butt Paste) sacrum BID TOP ; Start 07/10/18 at 09:00; Stop 07/10/18 at 13:02; Status DC ESTRELLITA STANTON MD Aug 05, 2018 13:47
--- NOTE | 2018-08-05 15:15 | NUR ---
Pt discharged this date w/ recommendations for continued speech therapy for cognitive skills. Addendum: 08/05/18 at 1519 by CHEY CRUZ [facility] Amended: Links added.
--- NOTE | 2018-08-05 15:16 | NUR ---
Pt is discharged this date w/ recommendations for continued speech therapy for cognitive skills. Pt's has been educated on cognitive limitations and will assist pt as he is adjusting to home. Addendum: 08/05/18 at [address] [facility] Amended: Links added.
[2018-08-05] MEDS: **NOTE PATIENT COMMENT** MISC XX SCH (21:00)
[2018-08-05] MEDS: RAMELTEON 8 MG TAB (ROZEREM) PO SCH (21:54)
[2018-08-05] MEDS: TAMSULOSIN 0.4 MG CAP PO SCH (21:56)
[2018-08-05] MEDS: ACETAMINOPHEN 500 MG TAB PO SCH (21:56)
[2018-08-06] MEDS: ONDANSETRON 4 MG TAB (S0181) PO PRN (05:18)
[2018-08-06] MEDS: PHENYTOIN 50 MG CHEW TABLET PO SCH ×2 (05:18→11:52)
[2018-08-06] MEDS: **hydrALAZINE HCL** 25 MG TAB PO SCH ×2 (05:19→11:52)
[2018-08-06 06:00] VITALS: BP 132/70
[2018-08-06] MEDS: IPRATROPIUM 0.5MG/ALBUTEROL 2.5MG INH SOL UD 3ML (DUONEB)(J7620) NEB SCH (07:25)
[2018-08-06] MEDS: LACTOBACILLUS ACIDOPHILUS CAP (BACID) PO SCH (08:00)
[2018-08-06] MEDS: DIAPER RELIEF PASTE (DESITIN) 60GM TOP SCH (09:00)
[2018-08-06] MEDS: LIDOCAINE 5% (LIDODERM) PATCH TD SCH (09:00)
[2018-08-06] MEDS ORDERED: FIDAXOMICIN 200 MG TAB (DIFICID) PO SCH (09:00)
[2018-08-06] MEDS: ANALGESIC BALM CRM 120 GM TOP SCH (09:00)
[2018-08-06] MEDS ORDERED: predniSONE 10 MG TAB PO SCH (09:00)
[2018-08-06] MEDS ORDERED: FLOM0.4C39 PO (09:35)
[2018-08-06] MEDS ORDERED: MACR100C43 PO (09:35)
[2018-08-06] MEDS ORDERED: HYDR25TA PO (09:35)
[2018-08-06] MEDS ORDERED: DIFI200T PO (09:35)
[2018-08-06] MEDS ORDERED: ASPI81TAEC PO (09:35)
[2018-08-06] MEDS ORDERED: CARV12.5 PO (09:35)
[2018-08-06] MEDS ORDERED: ROZE8TAB16 PO (09:35)
[2018-08-06] MEDS ORDERED: PRED5TA PO (09:35)
[2018-08-06] MEDS ORDERED: FEBU40TA PO (09:35)
[2018-08-06] MEDS ORDERED: CALC1CAP31 PO (09:35)
[2018-08-06] MEDS ORDERED: FOLI1TAB11 PO (09:35)
[2018-08-06] MEDS ORDERED: PHEN50TA PO (09:35)
[2018-08-06] MEDS ORDERED: GEMF600T5 PO (09:35)
[2018-08-06] MEDS ORDERED: PRED10TA2 PO (09:35)
[2018-08-06] MEDS: guaiFENesin 200 MG TAB PO SCH (10:23)
[2018-08-06] MEDS: HumaLOG INSULIN (NovoLOG) PER UNIT SC SCH (10:23)
[2018-08-06] MEDS: GEMFIBROZIL 600 MG TAB PO SCH (10:23)
[2018-08-06] MEDS: NITROFURANTOIN (MACROBID) 100 MG CAP PO SCH (10:24)
[2018-08-06] MEDS: FAMOTIDINE 20 MG TAB PO SCH (10:24)
[2018-08-06] MEDS: FOLIC ACID 1 MG TAB PO SCH (10:24)
[2018-08-06] MEDS: CALCITRIOL 0.25 MCG CAP (S0169) PO SCH (10:24)
[2018-08-06] MEDS: ASPIRIN 81 MG ENTERIC TAB PO SCH (10:24)
[2018-08-06] MEDS: FEBUXOSTAT 40 MG TABLET (ULORIC) PO SCH (10:25)
[2018-08-06] MEDS: CARVedilol 12.5 MG TAB PO SCH (10:25)
[2018-08-06] MEDS ORDERED: DARBEPOETIN 100 MCG/0.5 ML *NON-DIALYSIS* SYRINGE (J0881) SC ONE (11:00)
[2018-08-06 11:52] VITALS: BP 138/68
--- NOTE | 2018-08-06 15:46 | IPN ---
DATE: 08/04/2018 SUBJECTIVE: Christopher is seen and examined this morning at the bedside in the rehabilitation unit doing well. Denies any complaints. There is no gout flare. He is doing well with physical therapy. He is agreeable for iron infusion this evening. He denies any leg edema or shortness of breath and no recurrent diarrhea. He continues on nitrofurantoin. Vital signs: Temperature 97.2, pulse 63, respiratory rate 18, blood pressure 142/60, saturating 98% on room air. Intake yesterday was 1260, urine output yesterday was 1100. Weight in the bed scale today is not recorded. General: Patient is seen sitting out of bed to the chair, awake, alert, oriented, comfortable, no acute distress. Extraocular muscles are intact. Tongue is moist. Neck is supple. Jugular veins are not elevated. Cardiac: Regular rate and rhythm, S1, S2. Lungs are clear to auscultation bilaterally, no crackle or rale. Abdomen is soft and nontender, positive bowel sounds. Extremities are negative for edema, clubbing, or cyanosis. Neurologic: He is oriented, conversational, and at baseline mentation. LABORATORY DATA: White count 4.8, hemoglobin 8.2, platelets 321, sodium 140, potassium 4.1, bicarbonate 25, BUN 24, creatinine 1.6. INPATIENT MEDICATIONS: Reviewed by myself. I am ordering Venofer 300 mg IV infusion. His diuretics remain on hold. He has completed a course of Dificid. He continues on Macrobid and prednisone taper. Remainder of medications are unchanged from prior. PROBLEMS: 1. Chronic kidney disease (CKD) stage III. Patient's renal function is stable and close to his usual baseline. His volume status is compensated at present without use of his home diuretics and he is being kept off of his diuretics at present. His electrolytes as well are acceptable. He is being discharged likely at the end of the week and he can be discharged off of his home diuretic of torsemide and he can followup in the nephrology office for resumption of diuretic when indicated. 2. Anemia related to chronic kidney disease and iron deficiency. Patient is for Venofer infusion 300 mg this evening and I will also plan to give him a dose of Aranesp prior to discharge. His iron studies had shown borderline transferrin saturation with a low iron level. 3. Hypertension. Primary team has been adjusting his anti-hypertensives. Blood pressure has been quite variable, ranging from systolic 120-180 and he is now on carvedilol, hydralazine, and I made no changes to his anti-hypertensives today. At home, he is also on amlodipine which can be resumed at lower dose if needed. 4. Gout with recent flare now symptomatically improved. Patient continues on Uloric 120 mg by mouth daily and is on prednisone taper. 5. History of congestive heart failure. Volume status has been acceptable over the course of this admission. He has only received torsemide twice while here in the rehabilitation unit. Would continue to hold torsemide and it can be held upon discharge as well. Patient can followup with nephrology as an outpatient for resumption of diuretic as indicated.
[2018-08-09] MEDS ORDERED: predniSONE 5 MG TAB PO SCH (09:00)
--- NOTE | 2018-08-31 10:54 | PMRDS ---
DATE OF ADMISSION: 07/09/2018 DATE OF DISCHARGE: 08/06/2018 HISTORY OF PRESENT ILLNESS: 68-year-old male with a past medical history of hypertension, diabetes, status-post stenting, gout, CAD, ENEDINA, CKD III, recent GI bleed who initially presented to [facility] on 06/29/2018 with reported seizures who arrived with Glasglow coma scale of 3 and was given loading dose Dilantin and intubated. CTA showed a right frontal mass so he was transferred to [facility] in [place], [place] for further workup. Upon arrival to [facility] his GCS increased to 10. He was able to follow commands and was put on neuro checks and made nothing by mouth. At [facility] an MRI on 07/10 showed a 3 cm x 3 cm right frontal lobe lesion with a hemorrhagic component seen on Onward setting, "hemorrhagic lesion involving the right frontal cortex and subcortical white matter. Differential considering include neoplasm or less likely transformation of an infarction. No distant lesion identified." He was found to have leukocytosis which was thought to be from seizure activity and remained afebrile. He had significant hyponatremia, acute on chronic CKD and elevated blood sugars managed with insulin. He was evaluated by neurosurgery and had a resection of his right frontal mass on 07/04/2018 after which he was maintained on Decadron taper and continued on Dilantin for seizure prophylaxis. He complained of bilateral knee pain which improved with allopurinol and the initiation of Decadron taper. He was evaluated by therapy and noted to have significant impairments in his activities of daily living and gait and was deemed medically appropriate for discharged to ARU on 07/09/2018 with pathology pending from his recent tumor resection. Upon arrival he reported sternal pain and his reports she had performed cardiopulmonary resuscitation on him prior to admission and he has had this pain since. PAST MEDICAL HISTORY: As per history of present illness. HOSPITAL COURSE: Patient was admitted and enrolled in a comprehensive PT/OT, speech language pathology program. He received 24 hour nursing supervision and weekly team meetings were held to discuss his progress. Regarding his right frontal mass he was maintained on Dilantin for seizure prophylaxis and dose was adjusted for therapeutic optimal dose. Pathology from his mass resection showed "macrophagic infiltrate, hemosiderin and rare/scattered atypical glial consistent with subacute infarction. Patient upon arrival had multiple loose stools with leukocytosis and was found to have c-diff for which he was started initially on vancomycin which did not resolve his diarrhea after a week and then changed to Dificid. Patient also had e-coli urinary tract infection after which three doses of Fosfomycin were not effect, repeat UA again showed e-coli so he was started on Macrobid per infectious disease recommendations. His Dificid was restarted for a secondary recurrent c-diff. Patient was followed by renal during his hospital course in additional to infectious disease for his metabolic acidosis and any necrotic disease, given 2 units of blood. He developed right wrist swelling and left foot swelling thought to be from his chronic gout for which he was started on prednisone taper. He was deemed medically and functionally stable to return to home. DISCHARGE MEDICATIONS: Carvedilol, Uloric, Dificid , folic acid, hydralazine, Dilantin, Rozerem, DuoNeb, aspirin, calcitriol, gemfibrozil, tamsulosin. FUNCTIONAL HISTORY UPON DISCHARGE: Patient was independent without an assisted device for all function transfers, able to ambulate 300 feet, climb stairs. In occupational therapy he required supervision for a kitchen test prompting for grooming and bathing. was trained to assist with her and home services arranged and he was deemed functionally and medically stable to return to home.
== END 2018-08-06 12:15 | disposition home health service (06) | DRG 57 ==
LOC: M PM&R 20:05
PROVIDERS: ADMIT Physical Medicine & Rehabilitation; ATTEND Physical Medicine & Rehabilitation
PROC: 30233N1 Transfusion of Nonautologous Red Blood Cells into Peripheral Vein, Percutaneous Approach (ICD-10-PCS; principal; 2018-07-21)
DX: I69.398 Other sequelae of cerebral infarction (principal); N39.0 Urinary tract infection, site not specified; A04.72 Enterocolitis due to Clostridium difficile, not specified as recurrent; N18.4 Chronic kidney disease, stage 4 (severe); E87.2 Acidosis; N17.9 Acute kidney failure, unspecified; I13.0 Hypertensive heart and chronic kidney disease with heart failure and stage 1 through stage 4 chronic kidney disease, or unspecified chronic kidney disease; E11.51 Type 2 diabetes mellitus with diabetic peripheral angiopathy without gangrene; G47.33 Obstructive sleep apnea (adult) (pediatric); Z79.4 Long term (current) use of insulin; Z79.899 Other long term (current) drug therapy; Z79.82 Long term (current) use of aspirin; M10.9 Gout, unspecified; I25.10 Atherosclerotic heart disease of native coronary artery without angina pectoris; E87.6 Hypokalemia; I50.9 Heart failure, unspecified; B96.29 Other Escherichia coli [E. coli] as the cause of diseases classified elsewhere; R33.9 Retention of urine, unspecified; N40.0 Benign prostatic hyperplasia without lower urinary tract symptoms; J44.9 Chronic obstructive pulmonary disease, unspecified; K21.9 Gastro-esophageal reflux disease without esophagitis; R26.89 Other abnormalities of gait and mobility; J30.9 Allergic rhinitis, unspecified; I16.0 Hypertensive urgency; G40.909 Epilepsy, unspecified, not intractable, without status epilepticus; E83.42 Hypomagnesemia; Z91.19 Patient's noncompliance with other medical treatment and regimen

== ENCOUNTER 2018-08-07 09:06 | Inpatient (IN) | payer OTHER, MEDICARE ==
[~2018-08-07] VITALS: Ht 177.8 cm; Wt 91.4 kg
[~2018-08-07 09:06] MED LIST changes: +ACET-683 PO; +ASPI81TAEC PO; +CALC1CAP31 PO; +CARV12.5 PO; +DEXA4TA PO; +DIFI200T PO; +FLOM0.4C39 PO; +FOLI1TAB11 PO; +HYDR25TA PO; +INSUHUMDS SC; +IPRA0.00 INH; +LIDO5DIS41 TD; +MACR100C43 PO; +PHEN50TA PO; +PRED5TA PO; +ROZE8TAB16 PO; +SENO8.6T5 PO; +TORS100T PO; +[UNRECOGNIZED DRUG - CODE] SQ
--- NOTE | 2018-08-07 10:08 | REP ---
CT BRAIN WITHOUT CONTRAST: 08/07/2018. Clinical history: ED order states altered mental status. In addition, the patient is status post right frontal craniotomy for frontal lobe mass noted on CT 06/29/2018. Comparison: CT 07/20/2018, 07/14/2018, 06/29/2018. Findings: Noncontrast soft tissue and bone window images were obtained. Prior right frontal craniotomy is again seen. There is no pneumocephalus remaining. The extra-axial fluid collection at a craniotomy site has decreased since the previous study on 07/20. Hypodensity in the right frontal lobe with mass effect on the frontal horn of the right lateral ventricle is again seen, not much changed. No new or superimposed extra-axial fluid collection, hemorrhage, intraparenchymal or ventricular hemorrhage, or new hypodensities. I see no interval acute infarct. There is atrophy and proportionate ventriculomegaly, age appropriate. Heterogeneous low attenuation white matter changes in the periventricular, subcortical and deep centrum semiovale tracts as before and consistent with small-vessel ischemic disease. Brainstem intact. Cerebellum shows some atrophy but no evidence of posterior fossa hemorrhage or mass. Basal cisterns were intact. Mastoids and the visualized sinuses show only minimal mucosal thickening in some of the left ethmoid and sphenoid air cells. The maxillary sinuses are not visualized. The skull base shows some atherosclerotic calcifications in the carotid siphons. Aside from the craniotomy, I see no acute bony findings in the calvarium or skull base. Impression: 1. Status post right frontal craniotomy with interval decrease in the extra-axial fluid collection since the 07/20/2018 study and resolution of the postoperative pneumocephalus. No new extra-axial fluid collections or intracranial hemorrhage. 2. Low attenuation zone in the right frontal lobe with mass effect on the frontal horn of the right lateral ventricle again seen and unchanged consistent with a mass. I do not have pathologic results of his brain biopsy. 3. Chronic small vessel white matter ischemic changes, proportionate ventricular size and cortical atrophy and posterior fossa with some cerebellar atrophy, all stable and unchanged. 4. Some vascular calcifications carotid siphons with the skull base and calvarium showing the postoperative changes from craniotomy in the right frontal region and no other significant finding. Electronically Signed by Vamshi Gandhi MD 08/07/2018 07:35 P
--- NOTE | 2018-08-07 10:12 | REP ---
CT CERVICAL SPINE WITHOUT CONTRAST: 08/07/2018. Clinical history: Trauma. Comparison: 06/29/2018. Findings: Standard trauma protocol was utilized. There is cervical spondylosis greatest at C6-7 with anterior and posterior osteophytes and disc space narrowing. Smaller osteophytes with slight narrowing at C3-4 through C5-6. There is no compression deformity or destructive lesion. The dens show some degenerative changes with its articulation with the anterior arch of C1 but no fracture of the dens. Its relationship to the lateral masses normal on the coronal reconstructions. Craniocervical junction unremarkable. The cervical thoracic junction normal. Ring of C1 intact. Spinous processes, lamina, pedicles, facets and transverse processes are without acute finding. There is some facet hypertrophic change at multiple levels. Central canal without stenosis. Foramina are ample at C2-3 through C5-6. At C6-7, there is some mild foraminal encroachment due to uncinate spurring and some facet arthropathy bilaterally. No prevertebral swelling. There is no torticollis. There are heavy vascular calcifications in the carotid artery on the right. Surgical clips in the left carotid from presumed prior endarterectomy. No visible soft tissue masses. The portions of parotid and submandibular glands seen are unremarkable. Airway grossly intact. Impression: 1. Degenerative disc and facet arthritic changes with some foraminal encroachment at C6-7 and cervical spondylosis greatest at that level, less at C3-4 through C5-6. No central canal stenosis. No compression fracture or malalignment. No prevertebral swelling. Nothing acute. Electronically Signed by Vamshi Gandhi MD 08/07/2018 07:35 P
[2018-08-07] MEDS ORDERED: hydrALAZINE INJ 20 MG/ML VIAL IV STA (10:14)
[2018-08-07 10:15] LABS: BASO % 0.4 % (0.0-1.0); EOS # 0.1 10^3/uL (0.0-0.50); EOS % 0.9 % (0.0-3.0); HEMOGLOBIN 8.7 g/dl (13.5-17.5); LYMPH # 0.4 10^3/uL (1.5-4.5); LYMPH % 6.3 % (24.0-44.0); MEAN CORPUSCULAR HEMOGLOBIN 28.9 pg (27.0-33.0); MEAN CORPUSCULAR HGB CONC 32.2 g/dl (32.0-36.5); MEAN CORPUSCULAR VOLUME 89.7 fl (80.0-96.0); MONO # 0.5 10^3/uL (0.0-0.8); MONO % 6.9 % (0.0-5.0); NEUTROPHILS # 5.7 10^3/uL (1.8-7.7); NEUTROPHILS % 84.9 % (36.0-66.0); PLATELET COUNT, AUTOMATED 264 10^3/uL (150-450); RED BLOOD COUNT 3.01 10^6/uL (4.30-6.10); WHITE BLOOD COUNT 6.7 10^3/uL (4.0-10.0)
[2018-08-07] MEDS ORDERED: **hydrALAZINE** 50 MG TAB PO ONE (10:15)
[2018-08-07 10:37] LABS: AMPHETAMINES LEVEL URINE NEGATIVE (NEGATIVE); BARBITURATES URINE POSITIVE (NEGATIVE); BENZODIAZEPINES URINE NEGATIVE (NEGATIVE); CANNABINOIDS URINE NEGATIVE (NEGATIVE); COCAINE METABOLITE URINE NEGATIVE (NEGATIVE); METHADONE URINE NEGATIVE (NEGATIVE); OPIATES URINE NEGATIVE (NEGATIVE); PHENCYCLIDINE URINE NEGATIVE (NEGATIVE)
[2018-08-07 10:48] LABS: ALBUMIN 2.9 GM/DL (3.2-5.2); ALT/SGPT 12 U/L (12-78); BILIRUBIN,DIRECT 0.2 MG/DL (0.0-0.2); BILIRUBIN,TOTAL 0.4 MG/DL (0.2-1.0); BLOOD UREA NITROGEN 21 MG/DL (7-18); CALCIUM LEVEL 8.1 MG/DL (8.8-10.2); CARBON DIOXIDE LEVEL 26 MEQ/L (21-32); CHLORIDE LEVEL 104 MEQ/L (98-107); CK-MB VALUE MASS < 1.0 NG/ML (<3.6); CPK CREATINE PHOSPHOKINASE 52 U/L (39-308); CREATININE FOR GFR 1.62 MG/DL (0.70-1.30); ETHYL ALCOHOL (ETHANOL) < 0.003 % (0.000-0.010); GLOMERULAR FILTRATION RATE 45.5 (>49); GLUCOSE, FASTING 134 MG/DL (70-100); MB/CK RELATIVE INDEX 1.92 (< OR =4); POTASSIUM SERUM 3.8 MEQ/L (3.5-5.1); SODIUM LEVEL 138 MEQ/L (136-145); TOTAL PROTEIN 6.3 GM/DL (6.4-8.2); TROPONIN I < 0.02 NG/ML (< 0.10)
--- NOTE | 2018-08-07 11:09 | REP ---
AP PORTABLE SEATED CHEST: 08/07/2018. Clinical history: Altered mental status. Comparison: 07/14/2018, 06/29/2018. Findings. The two-view show the lung dial well inflated. There is patchy atelectasis or infiltrate in the left base lateral to the heart border on the frontal view difficult to perceive on the lateral projection with confidence. The right lung was clear. There is no gross effusion. Heart upper limits normal for portable technique. There is left atrial enlargement. The aorta is normal for age. Airway is intact. There are degenerative changes in the spine and shoulders. No free air under the diaphragms. Impression: 1. Some patchy atelectasis or infiltrate adjacent to the left heart border on the frontal view without effusion, other areas of infiltrate or atelectasis or parenchymal lesion. 2. Cardiomegaly with left atrial enlargement. No pulmonary edema. 3. Aorta and airway intact. Electronically Signed by Vamshi Gandhi MD 08/07/2018 07:39 P
[2018-08-07] MEDS ORDERED: cefTRIAXone SOD 1 GM in D5W MINI-BAG PLUS 50 ML IV ONE (11:15)
[2018-08-07] MEDS ORDERED: predniSONE 10 MG TAB PO ONE (13:00)
[2018-08-07] MEDS ORDERED: **hydrALAZINE** 50 MG TAB PO SCH (14:00)
[2018-08-07 14:45] VITALS: BP 185/80
[2018-08-07 15:25] VITALS: BP 154/74
[2018-08-07] MEDS: FEBUXOSTAT 40 MG TABLET (ULORIC) PO SCH (15:25)
[2018-08-07] MEDS: FOLIC ACID 1 MG TAB PO SCH (15:25)
[2018-08-07] MEDS: ASPIRIN 81 MG ENTERIC TAB PO SCH (15:26)
[2018-08-07] MEDS: PHENYTOIN 50 MG CHEW TABLET PO SCH ×2 (15:26→21:06)
[2018-08-07] MEDS: SENOKOT S TAB PO SCH ×2 (15:27→21:05)
[2018-08-07] MEDS: **hydrALAZINE HCL** 25 MG TAB PO SCH ×2 (15:27→21:07)
[2018-08-07] MEDS: CALCITRIOL 0.25 MCG CAP (S0169) PO SCH (15:28)
[2018-08-07] MEDS: CARVedilol 12.5 MG TAB PO SCH ×2 (15:39→21:06)
[2018-08-07] MEDS: GEMFIBROZIL 600 MG TAB PO SCH ×2 (15:40→21:05)
[2018-08-07 17:30] VITALS: BP 134/63
--- NOTE | 2018-08-07 19:35 | ECGEPIP ---
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
[2018-08-07] MEDS: TAMSULOSIN 0.4 MG CAP PO SCH (21:05)
[2018-08-07] MEDS: RAMELTEON 8 MG TAB (ROZEREM) PO SCH (21:05)
[2018-08-07 22:00] VITALS: BP 164/70
--- NOTE | 2018-08-08 02:03 | HPEPDOC ---
General Date of Admission Aug 07, 2018 at 12:50 Attending Physician: SHAR DOMINGUEZ MD Chief Complaint The patient is a 68-year-old male admitted with a reason for visit of Altered Mental Status,Uti. Source: Family, Old records History of Present Illness 68 year old male with recent hemorrhagic stroke in right frontal lobe on 06/30/18, HTN ,DM, ENEDINA non compliant with CPAP, left carotid artery stenosis s/p stenting, right carotid artery non critical stenosis being monitored for now, gout, CAD, CKD3, recent GIB who initially presented to [facility] on 06/29/18 with reported seizures, arrived with a [place] Coma Scale of 3, was given loading dose of Dilantin and intubated. CT Head showed a right frontal mass so he was transferred to [facility] in [place], [place] for further work-up. At [place] MRI on 06-30-18 showed a 3cm by 3cm right frontal lobe lesion with a hemorrhagic component, possible neoplasm or less likely transformation of an infarction. He was found to have leukocytosis which was thought to be from seizure activity and remained afebrile. He had significant hyponatremia, acute on chronic CKD and elevated blood sugars managed with insulin. He was evaluated by neurosurgery and had a resection of his right frontal mass on 07/04/18 after which he was maintained on a Decadron taper and continued on Dilantin for seizure prophylaxis. Pathology results, showed "macrophagic infiltrate, hemosiderin and rare/scattered atypical glia...consistent with subacute infarction"- no concern at this time for malignancy. He was evaluated by therapy and noted to have significant impairment in his ADLs and gait, and was deemed medically appropriate for discharge to Rehab Unit on 07-09-18. He was admitted to our ARU on 07/09/18 and was discharged from there on 08/06/18. On the day of discharge he was independent in his ADLS, gait was stable. He did have inversion of sleep wake cycle though as per even before he became sick he would sleep late into the morning till 11am and also take afternoon nap and he would be up and about most of the night. He did have significant apraxia and cognitive impairment as well as short term memory loss at discharge from ARU.Also he was being treated for a UTi with macrobid since 08/02/18. As per after going home he wanted to go upstairs to the bedroom and had to be reminded that he has been sleeping in the downstairs room for the past 2 years. He stumbled and fell in the living room at around 5:30 pm did not sustain any injury was helped up by teenage sons to the chair. He refused dinner as said his stomach was upset and he was nauseous. As the evening progressed into the night he became more and more confused and somnolent with increased tremors of the limbs and increased weakness. He had urinary incontinence and did not even know it. In the morning he was difficult to arouse and could not be got out of bed so came to the ED for evaluation. In the ED CT head did not reveal any new changes, labs were at baseline. Ua was dirty with 81 wbcs which is in fact less that previous UA. He was admitted for AMS / metabolic encephalopathy for further work up. Home Medications Scheduled Aspirin (Aspirin 81) 81 Mg Tab, 81 MG PO DAILY, (Reported) Calcitriol (Rocaltrol) 0.25 Mcg Cap, 0.25 MCG PO DAILY, (Reported) Carvedilol (Carvedilol) 12.5 Mg Tab, 50 MG PO BID Febuxostat (Uloric) 40 Mg Tab, 120 MG PO DAILY Fidaxomicin (Dificid) 200 Mg Tab, 200 MG PO Q2D Folic Acid (Folic Acid) 1 Mg Tab, 1 MG PO DAILY Gemfibrozil (Gemfibrozil) 600 Mg Tab, 600 MG PO BID, (Reported) Hydralazine HCl (Hydralazine HCl) 25 Mg Tab, 50 MG PO Q8H Levofloxacin Hemihydrate (Levaquin) 250 Mg Tab, 250 MG PO DAILY@06 Phenytoin (Phenytoin) 50 Mg Chw, 150 MG PO Q8H YOu have a 2 week supply, have your Dilantin levels checked by Dr. Mayers at our next visit to adjust the dose. Prednisone (Prednisone) 10 Mg Tab, 10 MG PO TAPER Take 4 tabs daily x 3 days, then 3 tabs daily x 3 days, then 2 tabs daily x 3 days, then 1 tab daily x 3 days and stop Ramelteon (Rozerem) 8 Mg Tab, 8 MG PO QHS Tamsulosin Hydrochloride (Flomax) 0.4 Mg Cap, 0.4 MG PO QHS, (Reported) Scheduled PRN Albuterol/Ipratropium (Ipratropium [place]/Albut 0.5-2.5 (3) mg/3Ml) 1 Lillian Lillian, 1 LILLIAN INH Q6H PRN for WHEEZING, (Reported) Allergies Coded Allergies: No Known Allergies (Verified , 03/30/18) Past Medical History Medical History Right frontal lobe Hemorrhagic stroke, HTN ,DM, ENEDINA non compliant with CPAP, left carotid artery stenosis s/p stenting, right carotid artery non clitical stenosis being monitored for now, gout, CAD, CKD3, recent GIB , Seizures, mitral regurgitation, pulmonary hypertension Surgical History Left carotid endarterectomy stenting. Right front lobe surgery Bilateral cataract surgery Review of Systems Constitutional: Denies: Chills, Fever, Night Sweats Pulmonary: Denies: Dyspnea, Cough Cardiovascular: Denies: Chest Pain, Palpitations, Orthopnea, Paroxysmal Noc. Dyspnea, Lt Headedness Gastrointestinal: Reports: Nausea; Denies: Vomiting, Abdominal Pain, Diarrhea, Constipation, Melena, Hematochezia, Other Symptoms Genitourinary: Reports: Incontinence Neurological: Reports: Weakness, Incoordination, Confusion, Seizures Psych: Reports: Memory Issues Physical Examination General Exam: Positive: No Acute Distress, Other (somnolent) Eye Exam: Positive: PERRLA, Conjunctiva & lids normal Neck Exam: Positive: Supple Chest Exam: Positive: Clear to auscultation, Normal air movement Heart Exam: Positive: Rate Normal, Regular Rhythm, Normal S1, Normal S2; Negative: Gallops, Murmurs, Rubs, Other Abdomen Exam: Positive: Normal bowel sounds, Soft Extremity Exam: Positive: Normal pulses; Negative: Clubbing, Cyanosis, Edema Skin Exam: Positive: Nl turgor and temperature Vital Signs Vital Signs Date Time Temp Pulse Resp B/P (MAP) Pulse Ox O2 Delivery O2 Flow Rate FiO2 08/07/18 22:00 97.9 63 17 164/70 (101) 96 08/07/18 14:11 Room Air Laboratory Data Labs 24H Laboratory Tests 2 08/07/18 09:50: Immature Granulocyte % (Auto) 0.6, White Blood Count 6.7, Red Blood Count 3.01L, Hemoglobin 8.7L, Hematocrit 27.0L, Mean Corpuscular Volume 89.7, Mean Corpuscu lar Hemoglobin 28.9, Mean Corpuscular Hemoglobin Concent 32.2, Red Cell Distribution Width 17.7H, Platelet Count 264, Neutrophils (%) (Auto) 84.9H, Lymphocytes (%) (Auto) 6.3L, Monocytes (%) (Auto) 6.9H, Eosinophils (%) (Auto) 0.9, Basophils (%) (Auto) 0.4, Neutrophils # (Auto) 5.7, Lymphocytes # (Auto) 0.4L, Monocytes # (Auto) 0.5, Eosinophils # (Auto) 0.1, Basophils # (Auto) 0.0, Nucleated Red Blood Cells % (auto) 0.0, Bedside Glucose (Misc Panel) 132H, Anion Gap 8, Glomerular Filtration Rate 45.5L, Calcium Level 8.1L, Aspartate Amino Transf (AST/SGOT) 10, Alanine Aminotransferase (ALT/SGPT) 12, Alkaline Phosphatase 120H, Total Bilirubin 0.4, Direct Bilirubin 0.2, Ammonia 22, Total Creatine Kinase 52, Creatine Kinase MB < 1.0, Creatine Kinase MB Relative Index 1.92, Troponin I < 0.02, Total Protein 6.3L, Albumin 2.9L, Albumin/Globulin Ratio 0.85L, Thyroid Stimulating Hormone (TSH) 1.080, Phenytoin (Dilantin) Level 17.0, Ethyl Alcohol Level < 0.003 08/07/18 10:04: Urine Color YELLOW, Urine Appearance HAZY, Urine pH 6.0, Urine Specific [place] 1.010, Urine Protein 2+H, Urine Glucose (UA) NEGATIVE, Urine Ketones NEGATIVE, Urine Blood 1+H, Urine Nitrite POSITIVEH, Urine Bilirubin NEGATIVE, Urine Urobilinogen 0.2, Urine Leukocyte Esterase 1+H, Urine WBC (Auto) 81H, Urine RBC (Auto) 6H, Urine Hyaline Casts (Auto) 0, Urine Bacteria (Auto) 3+H, Urine Squamous Epithelial Cells 0, Urine Amorphous Sediment SMALLH, Urine Mucus (Auto) SMALL, Urine Sperm (Auto) , Urine Amphetamines Screen NEGATIVE, Urine Benzodiazepines Screen NEGATIVE, Urine Opiates Screen NEGATIVE, Urine Methadone Screen NEGATIVE, Urine Barbiturates Screen POSITIVEH, Urine Phencyclidine Screen NEGATIVE, Urine Cocaine Metabolite Screen NEGATIVE, Urine Cannabinoids Screen NEGATIVE CBC/BMP Laboratory Tests 08/07/18 09:50 Red Blood Count 3.01 L, Mean Corpuscular Volume 89.7, Mean Corpuscular Hemoglobin 28.9, Mean Corpuscular Hemoglobin Concent 32.2, Red Cell Distribution Width 17.7 H, Neutrophils (%) (Auto) 84.9 H, Lymphocytes (%) (Auto) 6.3 L, Monocytes (%) (Auto) 6.9 H, Eosinophils (%) (Auto) 0.9, Basophils (%) (Auto) 0.4, Neutrophils # (Auto) 5.7, Lymphocytes # (Auto) 0.4 L, Monocytes # (Auto) 0.5, Eosinophils # (Auto) 0.1, Basophils # (Auto) 0.0 Microbiology Microbiology 08/07/18 Blood Culture, Received Pending 08/07/18 Blood Culture, Received Pending 08/07/18 Urine Culture, Received Pending Assessment/Plan 68 year old male with recent hemorrhagic stroke in right frontal lobe on 06/30/18, recent c diff infection still on treatment, HTN ,DM, ENEDINA non compliant with CPAP, left carotid artery stenosis s/p stenting, right carotid artery non clitical stenosis being monitored for now, gout, CAD, CKD3, recent GIB who initially presented to [facility] on 06/29/18 with reported seizures, arrived with a [place] Coma Scale of 3, was given loading dose of Dilantin and intubated. CT Head showed a right frontal mass so he was transferred to [facility] in [place], [place] for further work-up. At [place] MRI on 06-30-18 showed a 3cm by 3cm right frontal lobe lesion with a hemorrhagic component, possible neoplasm or less likely transformation of an infarction. He was found to have leukocytosis which was thought to be from seizure activity and remained afebrile. He had significant hyponatremia, acute on chronic CKD and elevated blood sugars managed with insulin. He was evaluated by neurosurgery and had a resection of his right frontal mass on 07/04/18 after which he was maintained on a Decadron taper and continued on Dilantin for seizure prophylaxis. Pathology results, showed "macrophagic infiltrate, hemosiderin and rare/scattered atypical glia...consistent with subacute infarction"- no concern at this time for malignancy. He was evaluated by therapy and noted to have significant impairment in his ADLs and gait, and was deemed medically appropriate for discharge to Rehab Unit on 07-09-18. He was admitted to our ARU on 07/09/18 and was discharged from there on 08/06/18. On the day of discharge he was independent in his ADLS, gait was stable. He did have inversion of sleep wake cycle though as per even before he became sick he would sleep late into the morning till 11am and also take afternoon nap and he would be up and about most of the night. He did have significant apraxia and cognitive impairment as well as short term memory loss at discharge from ARU.Also he was being treated for a UTi with macrobid since 08/02/18. As per after going home he wanted to go upstairs to the bedroom and had to be reminded that he has been sleeping in the downstairs room for the past 2 years. He stumbled and fell in the living room at around 5:30 pm did not sustain any injury was helped up by teenage sons to the chair. He refused dinner as said his stomach was upset and he was nauseous. As the evening progressed into the night he became more and more confused and somnolent with increased tremors of the limbs and increased weakness. He had urinary incontinence and did not even know it. In the morning he was difficult to arouse and could not be got out of bed so came to the ED for evaluation. In the ED CT head did not reveal any new changes, labs were at baseline. Ua was dirty with 81 wbcs which is in fact less that previous UA. He was also noted to be hypertensive with Bp 206/91 .of He was admitted for AMS / metabolic encephalopathy for further work up. Metabolic encephalopathy vs acute delirium Possible medication related along with ongoing urinary infection Rule out post ictal state. Patient may have had an unwitnessed seizure at home this could be also due to change in place. will place the patient on Telemetry. Will continue on all the home meds except macrobid UTI will give Ceftriaxone. await new urine cultures sent from ED. C diff continue on deficid Q2 days. Recent hemorrrhagic stroke most probably hypertensive stroke. continue asa continue TEDS for dvt prophylaxis Hypertension will increase hydralazine dose to 75 tid and coreg Hyperlipidemia continue gemfibrosil Gout with recent acute attack continue Uloric finish prednisone taper. now down to 10mg daily. CKD stage 3 creatinine at baseline will monitor. continue calcitriol Anemia of chronic disease received aranesp and venofer this week in ARU History of CHF volume status is now euvolemic DVT prophylaxis ordered. Plan / VTE VTE Prophylaxis Ordered?: Yes SHAR DOMINGUEZ MD Aug 08, 2018 02:03
[2018-08-08] MEDS: PHENYTOIN 50 MG CHEW TABLET PO SCH ×3 (05:50→21:45)
[2018-08-08] MEDS: **hydrALAZINE HCL** 25 MG TAB PO SCH ×2 (05:51→14:00)
[2018-08-08 06:00] VITALS: BP 140/50
[2018-08-08] MEDS ORDERED: ONDANSETRON 4MG/2ML VIAL (J2405) IV PRN (08:15)
[2018-08-08] MEDS ORDERED: predniSONE 10 MG TAB PO ONE (08:15)
[2018-08-08] MEDS: PANTOPRAZOLE 40MG INJ (PROTONIX) (C9113) IV SCH (08:36)
[2018-08-08] MEDS: FEBUXOSTAT 40 MG TABLET (ULORIC) PO SCH (08:36)
[2018-08-08] MEDS: ASPIRIN 81 MG ENTERIC TAB PO SCH (08:37)
[2018-08-08] MEDS: CALCITRIOL 0.25 MCG CAP (S0169) PO SCH (08:37)
[2018-08-08] MEDS: CARVedilol 12.5 MG TAB PO SCH ×2 (08:37→21:45)
[2018-08-08] MEDS: SENOKOT S TAB PO SCH ×2 (08:37→21:45)
[2018-08-08] MEDS: FOLIC ACID 1 MG TAB PO SCH (08:37)
[2018-08-08] MEDS: FIDAXOMICIN 200 MG TAB (DIFICID) PO SCH (08:37)
--- NOTE | 2018-08-08 09:33 | IPNPDOC ---
Subjective Date Seen The patient was seen on 08/08/18. Subjective Chief Complaint/HPI Altered mental status. Events since last encounter Feels better this morning, Awake and answering questions appropriately. still complains of abdominal upset and nausea. Refusing breakfast. No fever or chills. Blood culture 1/2 positive for gram negative rods. Objective Physical Examination General Exam: Positive: Alert, Cooperative, No Acute Distress, Other Eye Exam: Positive: PERRLA, Conjunctiva & lids normal Neck Exam: Positive: Supple Chest Exam: Positive: Clear to auscultation, Normal air movement Heart Exam: Positive: Rate Normal, Regular Rhythm, Normal S1, Normal S2; Negative: Gallops, Murmurs, Rubs, Other Abdomen Exam: Positive: BS Hyperactive, Soft, Tenderness (epigastrium) Extremity Exam: Positive: Normal pulses; Negative: Clubbing, Cyanosis, Edema Skin Exam: Positive: Nl turgor and temperature Neuro Exam: Positive: Normal Speech, Strength at 5/5 X4 ext, Sensation Intact Assessment /Plan Assessment 68 year old male with recent hemorrhagic stroke in right frontal lobe on 06/30/18, recent c diff infection still on treatment, HTN ,DM, ENEDINA non compliant with CPAP, left carotid artery stenosis s/p stenting, right carotid artery non critic al stenosis being monitored for now, gout, CAD, CKD3, recent GIB who initially presented to [facility] on 06/29/18 with reported seizures, arrived with a Arnav Coma Scale of 3, was given loading dose of Dilantin and intubated. CT Head showed a right frontal mass so he was transferred to [facility] in [place], [place] for further work-up. At [place] MRI on 06-30-18 showed a 3cm by 3cm right frontal lobe lesion with a hemorrhagic component, possible neoplasm or less likely transformation of an infarction. He was found to have leukocytosis which was thought to be from seizure activity and remained afebrile. He had significant hyponatremia, acute on chronic CKD and elevated blood sugars managed with insulin. He was evaluated by neurosurgery and had a resection of his right frontal mass on 07/04/18 after which he was maintained on a Decadron taper and continued on Dilantin for seizure prophylaxis. Pathology results, showed "macrophagic infiltrate, hemosiderin and rare/scattered atypical glia...consistent with subacute infarction"- no concern at this time for malignancy. He was evaluated by therapy and noted to have significant impairment in his ADLs and gait, and was deemed medically appropriate for discharge to Rehab Unit on 07-09-18. He was admitted to our ARU on 07/09/18 and was discharged from there on 08/06/18. On the day of discharge he was independent in his ADLS, gait was stable. He did have inversion of sleep wake cycle though as per even before he became sick he would sleep late into the morning till 11am and also take afternoon nap and he would be up and about most of the night. He did have significant apraxia and cognitive impairment as well as short term memory loss at discharge from ARU.Also he was being treated for a UTi with macrobid since 08/02/18. As per after going home he wanted to go upstairs to the bedroom and had to be reminded that he has been sleeping in the downstairs room for the past 2 years. He stumbled and fell in the living room at around 5:30 pm did not sustain any injury was helped up by teenage sons to the chair. He refused dinner as said his stomach was upset and he was nauseous. As the evening progressed into the night he became more and more confused and somnolent with increased tremors of the limbs and increased weakness. He had urinary incontinence and did not even know it. In the morning he was difficult to arouse and could not be got out of bed so came to the ED for evaluation. In the ED CT head did not reveal any new changes, labs were at baseline. Ua was dirty with 81 wbcs which is in fact less that previous UA. He was also noted to be hypertensive with Bp 206/91 .of He was admitted for AMS / metabolic encephalopathy for further work up. Gram negative bacteremia from UTi continue ceftriaxone Metabolic encephalopathy due to bacterimia and ongoing urinary infection Rule out post ictal state. Patient may have had an unwitnessed seizure at home this could be also due to change in place. will place the patient on Telemetry. Will continue on all the home meds except macrobid UTI will give Ceftriaxone. await new urine cultures sent from ED. C diff continue on deficid Q2 days. Recent hemorrrhagic stroke most probably hypertensive stroke. continue asa continue TEDS for dvt prophylaxis Hypertension will increase hydralazine dose to 75 tid and coreg Hyperlipidemia continue gemfibrosil Gout with recent acute attack continue Uloric finish prednisone taper. now down to 10mg daily. CKD stage 3 creatinine at baseline will monitor. continue calcitriol Anemia of chronic disease received aranesp and venofer this week in ARU History of CHF volume status is now euvolemic GI prophylaxis Recent h/o GIB ? stress ulcer will give pantoprazole zofran DVT prophylaxis ordered. Plan/VTE VTE Prophylaxis Ordered?: Yes VS, I&O, 24H, Fishbone Vital Signs/I&O Vital Signs Date Time Temp Pulse Resp B/P (MAP) Pulse Ox O2 Delivery O2 Flow Rate FiO2 08/08/18 08:37 140/50 08/08/18 06:00 97.4 66 17 95 08/07/18 14:11 Room Air I&O- Last 24 Hours up to 6 AM 08/08/18 06:00 Intake Total 300 ml Output Total 750 ml Balance -450 ml Laboratory Data 24H LABS Laboratory Tests 2 08/07/18 09:50: Immature Granulocyte % (Auto) 0.6, White Blood Count 6.7, Red Blood Count 3.01L, Hemoglobin 8.7L, Hematocrit 27.0L, Mean Corpuscular Volume 89.7, Mean Corpuscular Hemoglobin 28.9, Mean Corpuscular Hemoglobin Concent 32.2, Red Cell Distribution Width 17.7H, Platelet Count 264, Neutrophils (%) (Auto) 84.9H, Lymphocytes (%) (Auto) 6.3L, Monocytes (%) (Auto) 6.9H, Eosinophils (%) (Auto) 0.9, Basophils (%) (Auto) 0.4, Neutrophils # (Auto) 5.7, Lymphocytes # (Auto) 0.4L, Monocytes # (Auto) 0.5, Eosinophils # (Auto) 0.1, Basophils # (Auto) 0.0, Nucleated Red Blood Cells % (auto) 0.0, Bedside Glucose (Misc Panel) 132H, Anion Gap 8, Glomerular Filtration Rate 45.5L, Calcium Level 8.1L, Aspartate Amino Transf (AST/SGOT) 10, Alanine Aminotransferase (ALT/SGPT) 12, Alkaline Phosphatase 120H, Total Bilirubin 0.4, Direct Bilirubin 0.2, Ammonia 22, Total Creatine Kinase 52, Creatine Kinase MB < 1.0, Creatine Kinase MB Relative Index 1.92, Troponin I < 0.02, Total Protein 6.3L, Albumin 2.9L, Albumin/Globulin Ratio 0.85L, Thyroid Stimulating Hormone (TSH) 1.080, Phenytoin (Dilantin) Level 17.0, Ethyl Alcohol Level < 0.003 08/07/18 10:04: Urine Color YELLOW, Urine Appearance HAZY, Urine pH 6.0, Urine Specific [place] 1.010, Urine Protein 2+H, Urine Glucose (UA) NEGATIVE, Urine Ketones NEGATIVE, Urine Blood 1+H, Urine Nitrite POSITIVEH, Urine Bilirubin NEGATIVE, Urine Urob ilinogen 0.2, Urine Leukocyte Esterase 1+H, Urine WBC (Auto) 81H, Urine RBC (Auto) 6H, Urine Hyaline Casts (Auto) 0, Urine Bacteria (Auto) 3+H, Urine Squamous Epithelial Cells 0, Urine Amorphous Sediment SMALLH, Urine Mucus (Auto) SMALL, Urine Sperm (Auto) , Urine Amphetamines Screen NEGATIVE, Urine Benzodiazepines Screen NEGATIVE, Urine Opiates Screen NEGATIVE, Urine Methadone Screen NEGATIVE, Urine Barbiturates Screen POSITIVEH, Urine Phencyclidine Screen NEGATIVE, Urine Cocaine Metabolite Screen NEGATIVE, Urine Cannabinoids Screen NEGATIVE CBC/BMP Laboratory Tests 08/07/18 09:50 Red Blood Count 3.01 L, Mean Corpuscular Volume 89.7, Mean Corpuscular Hemoglobin 28.9, Mean Corpuscular Hemoglobin Concent 32.2, Red Cell Distribution Width 17.7 H, Neutrophils (%) (Auto) 84.9 H, Lymphocytes (%) (Auto) 6.3 L, Monocytes (%) (Auto) 6.9 H, Eosinophils (%) (Auto) 0.9, Basophils (%) (Auto) 0.4, Neutrophils # (Auto) 5.7, Lymphocytes # (Auto) 0.4 L, Monocytes # (Auto) 0.5, Eosinophils # (Auto) 0.1, Basophils # (Auto) 0.0 Microbiology Microbiology 08/07/18 Blood Culture - Preliminary, Resulted 08/07/18 Blood Culture, Received Pending 08/07/18 Urine Culture, Received Pending SHAR DOMINGUEZ MD Aug 08, 2018 09:32
[2018-08-08] MEDS: GEMFIBROZIL 600 MG TAB PO SCH ×2 (09:46→21:46)
[2018-08-08] MEDS: cefTRIAXone SOD 1 GM in D5W MINI-BAG PLUS 50 ML IV SCH (13:09)
[2018-08-08 13:41] VITALS: BP 100/50
--- NOTE | 2018-08-08 15:11 | IPN ---
DATE: 08/06/2018 Christopher is seen and examined this morning in the rehabilitation unit. He is discharge pending. He is looking forward to going home. I have requested pharmacy to send up Aranesp for him to receive one subcutaneous injection today prior to discharge and I have discussed with him that he is off of diuretic at present and should not take torsemide at home. Temperature 97.2, pulse 68, respiratory rate 18, blood pressure 132/70, saturating 99% on room air. Intake yesterday was 1700, urine output is not recorded, weight in the bed scale today is 94.7, which is stable from prior. General: Patient is seen dressed, walking around the room. Extraocular muscles are intact. Tongue is moist. Neck is supple. Jugular veins are not elevated. Cardiac: Regular rate and rhythm, S1, S2. Lungs are clear to auscultation bilaterally, no crackle or rale. Abdomen is soft and nontender. The extremities are negative for edema, clubbing, or cyanosis. Neurologic: He is oriented, interactive, and conversational, at baseline mentation. Skin: Normal turgor and temperature. LABORATORY DATA: No new labs. MEDICATIONS: I have ordered Aranesp 100 mcg subcutaneous times one. PROBLEMS: 1. Chronic kidney disease (CKD) stage III. Patient 's renal function is stable and his volume status is compensated at present without use of his home diuretics and I have discussed with him that he should stay off of diuretics upon discharge. His electrolytes are acceptable. He can followup in the nephrology office in 1-2 weeks for resumption of diuretic when indicated. 2. Anemia related to chronic kidney disease and iron deficiency. He received Venofer 300 mg infusion this past week and I have written orders for a dose of Aranesp prior to discharge. 3. Hypertension. Primary team has adjusted his antihypertensive medications. His blood pressures have been well controlled. I am making no changes. 4. Gout with recent flare now symptomatically improved. He is continuing prednisone taper and takes his usual Uloric 120 mg by mouth daily. 5. History of congestive heart failure. Volume status has been acceptable over the course of this admission. He only received torsemide twice while in the rehabilitation unit. Would continue to hold torsemide and it should be held on discharge as well. This has been discussed with the patient and with his .
[2018-08-08] MEDS: **hydrALAZINE** 50 MG TAB PO SCH (21:00)
[2018-08-08] MEDS: RAMELTEON 8 MG TAB (ROZEREM) PO SCH (21:45)
[2018-08-08] MEDS: TAMSULOSIN 0.4 MG CAP PO SCH (21:46)
[2018-08-08 22:00] VITALS: BP 150/70
[2018-08-09] MEDS: PHENYTOIN 50 MG CHEW TABLET PO SCH ×3 (05:23→21:22)
[2018-08-09 06:00] VITALS: BP 160/74
[2018-08-09] MEDS: ASPIRIN 81 MG ENTERIC TAB PO SCH (08:00)
[2018-08-09] MEDS: FOLIC ACID 1 MG TAB PO SCH (08:00)
[2018-08-09] MEDS: CALCITRIOL 0.25 MCG CAP (S0169) PO SCH (08:00)
[2018-08-09] MEDS: predniSONE 5 MG TAB PO SCH (08:01)
[2018-08-09] MEDS: PANTOPRAZOLE 40MG INJ (PROTONIX) (C9113) IV SCH (08:01)
[2018-08-09] MEDS: **hydrALAZINE** 50 MG TAB PO SCH ×2 (08:01→21:22)
[2018-08-09] MEDS: GEMFIBROZIL 600 MG TAB PO SCH ×2 (08:01→21:21)
[2018-08-09] MEDS: FEBUXOSTAT 40 MG TABLET (ULORIC) PO SCH (08:01)
[2018-08-09] MEDS: CARVedilol 12.5 MG TAB PO SCH ×2 (08:01→21:22)
[2018-08-09] MEDS: SENOKOT S TAB PO SCH ×2 (08:01→21:22)
[2018-08-09] MEDS: cefTRIAXone SOD 1 GM in D5W MINI-BAG PLUS 50 ML IV SCH (12:13)
[2018-08-09 14:00] VITALS: BP 141/58
--- NOTE | 2018-08-09 15:11 | IPNPDOC ---
Subjective Date Seen The patient was seen on 08/09/18. Subjective Chief Complaint/HPI altered mental status Events since last encounter pateint doing much better, mental status has improved. He is seen walking in the corridor with daughter, no fever or chills Objective Physical Examination General Exam: Positive: Alert, Cooperative, No Acute Distress, Other Eye Exam: Positive: PERRLA, Conjunctiva & lids normal Neck Exam: Positive: Supple Chest Exam: Positive: Clear to auscultation, Normal air movement Heart Exam: Positive: Rate Normal, Regular Rhythm, Normal S1, Normal S2; Negative: Gallops, Murmurs, Rubs, Other Abdomen Exam: Positive: BS Hyperactive, Soft, Tenderness (epigastrium) Extremity Exam: Positive: Normal pulses; Negative: Clubbing, Cyanosis, Edema Skin Exam: Positive: Nl turgor and temperature Neuro Exam: Positive: Normal Speech, Strength at 5/5 X4 ext, Sensation Intact Assessment /Plan Assessment 68 year old male with recent hemorrhagic stroke in right frontal lobe on 06/30/18, recent c diff infection still on treatment, HTN ,DM, ENEDINA non compliant with CPAP, left carotid artery stenosis s/p stenting, right carotid artery non critical stenosis being monitored for now, gout, CAD, CKD3, recent GIB who initially presented to [facility] on 06/29/18 with reported seizures, arrived with a Arnav Coma Scale of 3, was given loading dose of Dilantin and intubated. CT Head showed a right frontal mass so he was transferred to [facility] in [place], [place] for further work-up. At [place] MRI on 06-30-18 showed a 3cm by 3cm right frontal lobe lesion with a hemorrhagic component, possible neoplasm or less likely transformation of an infarction. He was found to have leukocytosis which was thought to be from seizure activity and remained afebrile. He had significant hyponatremia, acute on chronic CKD and elevated blood sugars managed with insulin. He was evaluated by neurosurgery and had a resection of his right frontal mass on 07/04/18 after which he was maintained on a Decadron taper and continued on Dilantin for seizure prophylaxis. Pathology results, showed "macrophagic infiltrate, hemosiderin and rare/scattered atypical glia...consistent with subacute infarction"- no concern at this time for malignancy. He was evaluated by therapy and noted to have significant impairment in his ADLs and gait, and was deemed medically appropriate for discharge to Rehab Unit on 07-09-18. He was admitted to our ARU on 07/09/18 and was discharged from there on 08/06/18. On the day of discharge he was independent in his ADLS, gait was stable. He did have inversion of sleep wake cycle though as per even before he became sick he would sleep late into the morning till 11am and also take afternoon nap and he would be up and about most of the night. He did have significant apraxia and cognitive impairment as well as short term memory loss at discharge from ARU.Also he was being treated for a UTi with macrobid since 08/02/18. As per after going home he wanted to go upstairs to the bedroom and had to be reminded that he has been sleeping in the downstairs room for the past 2 years. He stumbled and fell in the living room at around 5:30 pm did not sustain any injury was helped up by teenage sons to the chair. He refused dinner as said his stomach was upset and he was nauseous. As the evening progressed into the night he became more and more confused and somnolent with increased tremors of the limbs and increased weakness. He had urinary incont inence and did not even know it. In the morning he was difficult to arouse and could not be got out of bed so came to the ED for evaluation. In the ED CT head did not reveal any new changes, labs were at baseline. Ua was dirty with 81 wbcs which is in fact less that previous UA. He was also noted to be hypertensive with Bp 206/91 .of He was admitted for AMS / metabolic encephalopathy for further work up. Gram negative bacteremia from UTi continue ceftriaxone Metabolic encephalopathy due to bacterimia and ongoing urinary infection Rule out post ictal state. Patient may have had an unwitnessed seizure at home this could be also due to change in place. will place the patient on Telemetry. Will continue on all the home meds except macrobid UTI will give Ceftriaxone. await new urine cultures sent from ED. C diff continue on deficid Q2 days. Recent hemorrrhagic stroke most probably hypertensive stroke. continue asa continue TEDS for dvt prophylaxis Hypertension will increase hydralazine dose to 75 tid and coreg Hyperlipidemia continue gemfibrosil Gout with recent acute attack continue Uloric finish prednisone taper. now down to 10mg daily. CKD stage 3 creatinine at baseline will monitor. continue calcitriol Anemia of chronic disease received aranesp and venofer this week in ARU History of CHF volume status is now euvolemic GI prophylaxis Recent h/o GIB ? stress ulcer will give pantoprazole zofran DVT prophylaxis ordered. Plan/VTE VTE Prophylaxis Ordered?: Yes VS, I&O, 24H, Fishbone Vital Signs/I&O Vital Signs Date Time Temp Pulse Resp B/P (MAP) Pulse Ox O2 Delivery O2 Flow Rate FiO2 08/09/18 08:01 84 148/78 08/09/18 06:00 96.9 17 97 08/07/18 14:11 Room Air I&O- Last 24 Hours up to 6 AM 08/09/18 06:00 Intake Total 1200 ml Output Total 2220 ml Balance -1020 ml Laboratory Data Microbiology Microbiology 08/07/18 Blood Culture - Preliminary, Resulted 08/07/18 Blood Culture - Preliminary, Resulted No Growth after 48 hours. All Specime... 08/07/18 Urine Culture - Final, Complete Escherichia Coli SHAR DOMINGUEZ MD Aug 09, 2018 15:11
[2018-08-09] MEDS: RAMELTEON 8 MG TAB (ROZEREM) PO SCH (21:22)
[2018-08-09] MEDS: TAMSULOSIN 0.4 MG CAP PO SCH (21:22)
[2018-08-09 22:00] VITALS: BP 164/60
[2018-08-10] MEDS: PHENYTOIN 50 MG CHEW TABLET PO SCH ×3 (05:11→21:12)
[2018-08-10 06:00] VITALS: BP 149/77
[2018-08-10] MEDS: CALCITRIOL 0.25 MCG CAP (S0169) PO SCH (10:17)
[2018-08-10] MEDS: FIDAXOMICIN 200 MG TAB (DIFICID) PO SCH (10:17)
[2018-08-10] MEDS: FEBUXOSTAT 40 MG TABLET (ULORIC) PO SCH (10:17)
[2018-08-10] MEDS: FOLIC ACID 1 MG TAB PO SCH (10:18)
[2018-08-10] MEDS: ASPIRIN 81 MG ENTERIC TAB PO SCH (10:18)
[2018-08-10] MEDS: GEMFIBROZIL 600 MG TAB PO SCH ×2 (10:19→20:38)
[2018-08-10] MEDS: CARVedilol 12.5 MG TAB PO SCH ×2 (10:19→20:38)
[2018-08-10] MEDS: SENOKOT S TAB PO SCH ×2 (10:19→20:37)
[2018-08-10] MEDS: predniSONE 5 MG TAB PO SCH (10:19)
[2018-08-10] MEDS: PANTOPRAZOLE 40MG INJ (PROTONIX) (C9113) IV SCH (10:19)
[2018-08-10] MEDS: **hydrALAZINE** 50 MG TAB PO SCH ×2 (10:19→20:38)
--- NOTE | 2018-08-10 10:53 | IPNPDOC ---
Date Seen The patient was seen on 08/10/18. Progress Note Subjective: back to baseline mental status per family at the bedside. afebrile no new c/o. blood cx: ecoli fromtransient bacteremia from uti. continue w ceftriaxone. dc plans thu or . Physical Examination vitals pls see below General Exam: Positive: Alert, Cooperative, No Acute Distress, Other Eye Exam: Positive: PERRLA, Conjunctiva & lids normal Neck Exam: Positive: Supple Chest Exam: Positive: Clear to auscultation, Normal air movement Heart Exam: Positive: Rate Normal, Regular Rhythm, Normal S1, Normal S2; Negative: Gallops, Murmurs, Rubs, Other Abdomen Exam: Positive: BS Hyperactive, Soft, Tenderness (epigastrium) Extremity Exam: Positive: Normal pulses; Negative: Clubbing, Cyanosis, Edema Skin Exam: Positive: Nl turgor and temperature Neuro Exam: Positive: Normal Speech, Strength at 5/5 X4 ext, Sensation Intact laboratory data, pending Assessment /Plan Assessment 68 year old male with recent hemorrhagic stroke in right frontal lobe on 06/30/18, recent c diff infection still on treatment, HTN ,DM, ENEDINA non compliant with CPAP, left carotid artery stenosis s/p stenting, right carotid artery non critical stenosis being monitored for now, gout, CAD, CKD3, recent GIB who initially presented to [facility] on 06/29/18 with reported seizures, arrived with a Arnav Coma Scale of 3, was given loading dose of Dilantin and intubated. CT Head showed a right frontal mass so he was transferred to [facility] in [place], [place] for further work-up. At [place] MRI on 06-30-18 showed a 3cm by 3cm right frontal lobe lesion with a hemorrhagic component, possible neoplasm or less likely transformation of an infarction. He was found to have leukocytosis which was thought to be from seizure activity and remained afebrile. He had significant hyponatremia, acute on chronic CKD and elevated blood sugars managed with insulin. He was evaluated by neurosurgery and had a resection of his right frontal mass on 07/04/18 after which he was maintained on a Decadron taper and continued on Dilantin for seizure prophylaxis. Pathology results, showed "macrophagic infiltrate, hemosiderin and rare/scattered atypical glia...consistent with subacute infarction"- no concern at this time for malignancy. He was evaluated by therapy and noted to have significant impairment in his ADLs and gait, and was deemed medically appropriate for discharge to Rehab Unit on 07-09-18. He was admitted to our ARU on 07/09/18 and was discharged from there on 08/06/18. On the day of discharge he was independent in his ADLS, gait was stable. He did have inversion of sleep wake cycle though as per even before he became sick he would sleep late into the morning till 11am and also take afternoon nap and he would be up and about most of the night. He did have significant apraxia and cognitive impairment as well as short term memory loss at discharge from ARU.Also he was being treated for a UTi with macrobid since 08/02/18. As per after going home he wanted to go upstairs to the bedroom and had to be reminded that he has been sleeping in the downstairs room for the past 2 years. He stumbled and fell in the living room at around 5:30 pm did not sustain any injury was helped up by teenage sons to the chair. He refused dinner as said his stomach was upset and he was nauseous. As the evening progressed into the night he became more and more confused and somnolent with increased tremors of the limbs and increased weakness. He had urinary incontinence and did not even know it. In the morning he was difficult to arouse and could not be got out of bed so came to the ED for evaluation. In the ED CT head did not reveal any new changes, labs were at baseline. Ua was dirty with 81 wbcs which is in fact less that previous UA. He was also noted to be hypertensive with Bp 206/91 .of He was admitted for AMS / metabolic encephalopathy for further work up. Gram negative bacteremia from UTi continue ceftriaxone Metabolic encephalopathy due to bacterimia and ongoing urinary infection Rule out post ictal state. Patient may have had an unwitnessed seizure at home this could be also due to change in place. will place the patient on Telemetry. Will continue on all the home meds except macrobid UTI will give Ceftriaxone. await new urine cultures sent from ED. C diff continue on deficid Q2 days. Recent hemorrrhagic stroke most probably hypertensive stroke. continue asa continue TEDS for dvt prophylaxis Hypertension will increase hydralazine dose to 75 tid and coreg Hyperlipidemia continue gemfibrosil Gout with recent acute attack continue Uloric finish prednisone taper. now down to 10mg daily. CKD stage 3 creatinine at baseline will monitor. continue calcitriol Anemia of chronic disease received aranesp and venofer this week in ARU History of CHF volume status is now euvolemic GI prophylaxis Recent h/o GIB ? stress ulcer will give pantoprazole zofran DVT prophylaxis ordered. Plan/VTE VTE Prophylaxis Ordered?: Yes dispo: thu or . VS, I&O, 24H, Fishbone Vital Signs/I&O Vital Signs Date Time Temp Pulse Resp B/P (MAP) Pulse Ox O2 Delivery O2 Flow Rate FiO2 08/10/18 10:19 72 155/79 08/10/18 06:00 98.0 20 97 08/07/18 14:11 Room Air I&O- Last 24 Hours up to 6 AM 08/10/18 06:00 Intake Total 950 ml Output Total 1200 ml Balance -250 ml Laboratory Data Microbiology Microbiology 08/07/18 Blood Culture - Final, Complete Escherichia Coli 08/07/18 Blood Culture - Preliminary, Resulted No Growth after 48 hours. All Specime... 08/07/18 Urine Culture - Final, Complete Escherichia Coli EFREN ARCHER MD Aug 10, 2018 10:53
[2018-08-10 11:12] LABS: BASO % 0.7 % (0.0-1.0); EOS # 0.3 10^3/uL (0.0-0.50); EOS % 4.1 % (0.0-3.0); HEMATOCRIT 26.2 % (42.0-52.0); HEMOGLOBIN 8.6 g/dl (13.5-17.5); LYMPH % 16.3 % (24.0-44.0); MEAN CORPUSCULAR HEMOGLOBIN 28.9 pg (27.0-33.0); MEAN CORPUSCULAR HGB CONC 32.8 g/dl (32.0-36.5); MEAN CORPUSCULAR VOLUME 87.9 fl (80.0-96.0); MONO # 0.6 10^3/uL (0.0-0.8); MONO % 9.9 % (0.0-5.0); NEUTROPHILS # 4.2 10^3/uL (1.8-7.7); NEUTROPHILS % 68.7 % (36.0-66.0); PLATELET COUNT, AUTOMATED 266 10^3/uL (150-450); RED BLOOD COUNT 2.98 10^6/uL (4.30-6.10); WHITE BLOOD COUNT 6.1 10^3/uL (4.0-10.0)
[2018-08-10 11:35] LABS: CALCIUM LEVEL 8.2 MG/DL (8.8-10.2); CREATININE FOR GFR 1.65 MG/DL (0.70-1.30); GLOMERULAR FILTRATION RATE 44.5 (>49); POTASSIUM SERUM 3.6 MEQ/L (3.5-5.1)
[2018-08-10] MEDS: cefTRIAXone SOD 1 GM in D5W MINI-BAG PLUS 50 ML IV SCH (13:48)
[2018-08-10 14:00] VITALS: BP 148/67
[2018-08-10] MEDS: TAMSULOSIN 0.4 MG CAP PO SCH (20:37)
[2018-08-10] MEDS: RAMELTEON 8 MG TAB (ROZEREM) PO SCH (20:38)
[2018-08-10 22:00] VITALS: BP 164/76
[2018-08-11] MEDS ORDERED: HALOPERIDOL 5 MG/ML VIAL (J1630) IM PRN (00:30)
[2018-08-11] MEDS: PHENYTOIN 50 MG CHEW TABLET PO SCH ×4 (05:09→21:29)
[2018-08-11 06:00] VITALS: BP 159/72
[2018-08-11] MEDS: ASPIRIN 81 MG ENTERIC TAB PO SCH (09:34)
[2018-08-11] MEDS: CALCITRIOL 0.25 MCG CAP (S0169) PO SCH (09:34)
[2018-08-11] MEDS: SENOKOT S TAB PO SCH ×2 (09:35→20:19)
[2018-08-11] MEDS: FOLIC ACID 1 MG TAB PO SCH (09:35)
[2018-08-11] MEDS: FEBUXOSTAT 40 MG TABLET (ULORIC) PO SCH (09:35)
[2018-08-11] MEDS: PANTOPRAZOLE 40MG INJ (PROTONIX) (C9113) IV SCH (09:35)
[2018-08-11] MEDS: GEMFIBROZIL 600 MG TAB PO SCH ×2 (09:35→20:18)
[2018-08-11] MEDS: predniSONE 5 MG TAB PO SCH (09:35)
[2018-08-11] MEDS: **hydrALAZINE** 50 MG TAB PO SCH ×2 (09:41→20:19)
[2018-08-11] MEDS: CARVedilol 12.5 MG TAB PO SCH ×2 (09:41→20:20)
--- NOTE | 2018-08-11 12:17 | IPNPDOC ---
Date Seen The patient was seen on 08/11/18. Progress Note Subjective: Pt refused to work with physical therapy and could not be assessed. Pt remains disoriented at times. no fever, chills, dysuria, urgency or ferquency. Physical Examination vitals pls see below General Exam: Positive: Alert, Cooperative, No Acute Distress, Other Eye Exam: Positive: PERRLA, Conjunctiva & lids normal Neck Exam: Positive: Supple Chest Exam: Positive: Clear to auscultation, Normal air movement Heart Exam: Positive: Rate Normal, Regular Rhythm, Normal S1, Normal S2; Negative: Gallops, Murmurs, Rubs, Other Abdomen Exam: Positive: BS Hyperactive, Soft, Tenderness (epigastrium) Extremity Exam: Positive: Normal pulses; Negative: Clubbing, Cyanosis, Edema Skin Exam: Positive: Nl turgor and temperature Neuro Exam: Positive: Normal Speech, Strength at 5/5 X4 ext, Sensation Intact laboratory data, pending Assessment /Plan Assessment 68 year old male with recent hemorrhagic stroke in right frontal lobe on 06/30/18, recent c diff infection still on treatment, HTN ,DM, ENEDINA non compliant with CPAP, left carotid artery stenosis s/p stenting, right carotid artery non critical stenosis being monitored for now, gout, CAD, CKD3, recent GIB who initially presented to [facility] on 06/29/18 with reported seizures, arrived with a Arnav Coma Scale of 3, was given loading dose of Dilantin and intubated. CT Head showed a right frontal mass so he was transferred to [facility] in [place], [place] for further work-up. At [place] MRI on 06-30-18 showed a 3cm by 3cm right frontal lobe lesion with a hemorrhagic component, possible neoplasm or less likely transformation of an infarction. He was found to have leukocytosis which was thought to be from seizure activity and remained afebrile. He had significant hyponatremia, acute on chronic CKD and elevated blood sugars managed with insulin. He was evaluated by neurosurgery and had a resection of his right frontal mass on 07/04/18 after which he was maintained on a Decadron taper and continued on Dilantin for seizure prophylaxis. Pathology results, showed "macrophagic infiltrate, hemosiderin and rare/scattered atypical glia...consistent with subacute infarction"- no concern at this time for malignancy. He was evaluated by therapy and noted to have significant impairment in his ADLs and gait, and was deemed medically appropriate for discharge to Rehab Unit on 07-09-18. He was admitted to our ARU on 07/09/18 and was discharged from there on 08/06/18. On the day of discharge he was independent in his ADLS, gait was stable. He did have inversion of sleep wake cycle though as per even before he became sick he would sleep late into the morning till 11am and also take afternoon nap and he would be up and about most of the night. He did have significant apraxia and cognitive impairment as well as short term memory loss at discharge from ARU.Also he was being treated for a UTi with macrobid since 08/02/18. As per after going home he wanted to go upstairs to the bedroom and had to be reminded that he has been sleeping in the downstairs room for the past 2 years. He stumbled and fell in the living room at around 5:30 pm did not sustain any injury was helped up by teenage sons to the chair. He refused dinner as said his stomach was upset and he was nauseous. As the evening progressed into the night he became more and more confused and somnolent with increased tremors of the limbs and increased weakness. He had urinary incontinence and did not even know it. In the morning he was difficult to arouse and could not be got out of bed so came to the ED for evaluation. In the ED CT head did not reveal any new changes, labs were at baseline. Ua was dirty with 81 wbcs which is in fact less that previous UA. He was also noted to be hypertensive with Bp 206/91 .of He was admitted for AMS / metabolic encephalopathy for further work up. Gram negative bacteremia from UTi continue ceftriaxone Metabolic encephalopathy due to bacterimia and ongoing urinary infection Rule out post ictal state. Patient may have had an unwitnessed seizure at home this could be also due to change in place. will place the patient on Telemetry. Will continue on all the home meds except macrobid UTI on ceftriaxone x7 days. C diff continue on deficid Q2 days. Recent hemorrrhagic stroke most probably hypertensive stroke. continue asa continue TEDS for dvt prophylaxis Hypertension will increase hydralazine dose to 75 tid and coreg Hyperlipidemia continue gemfibrosil Gout with recent acute attack continue Uloric finish prednisone taper. now down to 10mg daily. CKD stage 3 creatinine at baseline will monitor. continue calcitriol Anemia of chronic disease received aranesp and venofer this week in ARU History of CHF volume status is now euvolemic GI prophylaxis Recent h/o GIB ? stress ulcer will give pantoprazole zofran DVT prophylaxis ordered. Plan/VTE VTE Prophylaxis Ordered?: Yes dispo: refused to work with physical therapy. awaiting physical therapy clearance. VS, I&O, 24H, Fishbone Vital Signs/I&O Vital Signs Date Time Temp Pulse Resp B/P (MAP) Pulse Ox O2 Delivery O2 Flow Rate FiO2 08/11/18 09:41 72 178/68 08/11/18 06:00 97.9 20 96 08/07/18 14:11 Room Air I&O- Last 24 Hours up to 6 AM 08/11/18 05:59 Intake Total 1340 ml Output Total 1575 ml Balance -235 ml Laboratory Data Microbiology Microbiology 08/07/18 Blood Culture - Final, Complete Escherichia Coli 08/07/18 Blood Culture - Preliminary, Resulted No Growth after 72 hours. All specime... 08/07/18 Urine Culture - Final, Complete Escherichia Coli EFREN ARCHER MD Aug 11, 2018 12:13
[2018-08-11] MEDS: cefTRIAXone SOD 1 GM in D5W MINI-BAG PLUS 50 ML IV SCH (12:41)
[2018-08-11 14:00] VITALS: BP 180/88
[2018-08-11] MEDS ORDERED: predniSONE 20 MG TAB PO ONE (14:30)
[2018-08-11] MEDS: RAMELTEON 8 MG TAB (ROZEREM) PO SCH (20:20)
[2018-08-11] MEDS: TAMSULOSIN 0.4 MG CAP PO SCH (20:20)
[2018-08-11 22:00] VITALS: BP_SYST 134; BP_SYST 170; BP_DIAS 63; BP_DIAS 84
[2018-08-12] MEDS: PHENYTOIN 50 MG CHEW TABLET PO SCH ×3 (05:41→23:26)
[2018-08-12 06:00] VITALS: BP 153/79
[2018-08-12] MEDS ORDERED: LevoFLOXacin 500 MG TABLET PO ONE (06:00)
[2018-08-12] MEDS: ASPIRIN 81 MG ENTERIC TAB PO SCH (08:56)
[2018-08-12] MEDS: FIDAXOMICIN 200 MG TAB (DIFICID) PO SCH (08:57)
[2018-08-12] MEDS: CALCITRIOL 0.25 MCG CAP (S0169) PO SCH (08:57)
[2018-08-12] MEDS: SENOKOT S TAB PO SCH ×2 (08:57→20:57)
[2018-08-12] MEDS: **hydrALAZINE** 50 MG TAB PO SCH ×3 (08:57→21:00)
[2018-08-12] MEDS: GEMFIBROZIL 600 MG TAB PO SCH ×2 (08:57→20:56)
[2018-08-12] MEDS: PANTOPRAZOLE 40MG INJ (PROTONIX) (C9113) IV SCH (08:58)
[2018-08-12] MEDS: FOLIC ACID 1 MG TAB PO SCH (08:58)
[2018-08-12] MEDS: FEBUXOSTAT 40 MG TABLET (ULORIC) PO SCH (08:58)
[2018-08-12] MEDS: CARVedilol 12.5 MG TAB PO SCH ×2 (08:58→20:56)
[2018-08-12] MEDS ORDERED: predniSONE 20 MG TAB PO ONE (09:00)
--- NOTE | 2018-08-12 09:28 | IPNPDOC ---
Date Seen The patient was seen on 08/12/18. Progress Note Subjective: Pt remains disoriented and confused, refusing blood tests this morning. unable to pass physical therapy. denies any fever chills or flank pain. currently on po levaquin for uti. gouty attack treated with rapid tapering of steroids and resumption of his 5mg prednisone after taper. no NSAIDs due to chronic kidney disease. Physical Examination vitals pls see below General Exam: Positive: Alert, Cooperative, No Acute Distress, Other Eye Exam: Positive: PERRLA, Conjunctiva & lids normal Neck Exam: Positive: Supple Chest Exam: Positive: Clear to auscultation, Normal air movement Heart Exam: Positive: Rate Normal, Regular Rhythm, Normal S1, Normal S2; Negative: Gallops, Murmurs, Rubs, Other Abdomen Exam: Positive: BS Hyperactive, Soft, Tenderness (epigastrium) Extremity Exam: Positive: Normal pulses; Negative: Clubbing, Cyanosis, Edema Skin Exam: Positive: Nl turgor and temperature Neuro Exam: Positive: Normal Speech, Strength at 5/5 X4 ext, Sensation Intact laboratory data, pending Assessment /Plan Assessment 68 year old male with recent hemorrhagic stroke in right frontal lobe on 06/30/18, recent c diff infection still on treatment, HTN ,DM, ENEDINA non compliant with CPAP, left carotid artery stenosis s/p stenting, right carotid artery non critical stenosis being monitored for now, gout, CAD, CKD3, recent GIB who initially presented to [facility] on 06/29/18 with reported seizures, arrived with a Arnav Coma Scale of 3, was given loading dose of Dilantin and intubated. CT Head showed a right frontal mass so he was transferred to [facility] in [place], [place] for further work-up. At [facility] MRI on 06-30-18 showed a 3cm by 3cm right frontal lobe lesion with a hemorrhagic component, possible neoplasm or less likely transformation of an infarction. He was found to have leukocytosis which was thought to be from seizure activity and remained afebrile. He had significant hyponatremia, acute on chronic CKD and elevated blood sugars managed with insulin. He was evaluated by neurosurgery and had a resection of his right frontal mass on 07/04/18 after which he was maintained on a Decadron taper and continued on Dilantin for seizure prophylaxis. Pathology results, showed "macrophagic infiltrate, hemosiderin and rare/scattered atypical glia...consistent with subacute infarction"- no concern at this time for malignancy. He was evaluated by therapy and noted to have significant impairment in his ADLs and gait, and was deemed medically appropriate for discharge to Rehab Unit on 07-09-18. He was admitted to our ARU on 07/09/18 and was discharged from there on 08/06/18. On the day of discharge he was independent in his ADLS, gait was stable. He did have inversion of sleep wake cycle though as per even before he became sick he would sleep late into the morning till 11am and also take afternoon nap and he would be up and about most of the night. He did have significant apraxia and cognitive impairment as well as short term memory loss at discharge from ARU.Also he was being treated for a UTi with macrobid since 08/02/18. As per after going home he wanted to go upstairs to the bedroom and had to be reminded that he has been sleeping in the downstairs room for the past 2 years. He stumbled and fell in the living room at around 5:30 pm did not sustain any injury was helped up by teenage sons to the chair. He refused dinner as said his stomach was upset and he was nauseous. As the evening progressed into the night he became more and more confused and somnolent with increased tremors of the limbs and increased weakness. He had urinary incontinence and did not even know it. In the morning he was difficult to arouse and could not be got out of bed so came to the ED for evaluation. In the ED CT head did not reveal any new changes, labs were at baseline. Ua was dirty with 81 wbcs which is in fact less that previous UA. He was also noted to be hypertensive with Bp 206/91 .of He was admitted for AMS / metabolic en cephalopathy for further work up. Gram negative bacteremia from UTi continue ceftriaxone Metabolic encephalopathy due to bacterimia and ongoing urinary infection Rule out post ictal state. Patient may have had an unwitnessed seizure at home this could be also due to change in place. will place the patient on Telemetry. Will continue on all the home meds except macrobid UTI on ceftriaxone x7 days. C diff continue on deficid Q2 days. Recent hemorrrhagic stroke most probably hypertensive stroke. continue asa continue TEDS for dvt prophylaxis Hypertension will increase hydralazine dose to 75 tid and coreg Hyperlipidemia continue gemfibrosil Gout with recent acute attack continue Uloric prednisone taper. CKD stage 3 creatinine at baseline will monitor. continue calcitriol Anemia of chronic disease received aranesp and venofer this week in ARU History of CHF volume status is now euvolemic GI prophylaxis Recent h/o GIB ? stress ulcer will give pantoprazole zofran DVT prophylaxis ordered. Plan/VTE VTE Prophylaxis Ordered?: Yes dispo: refused to work with physical therapy. awaiting physical therapy clearance. VS, I&O, 24H, Fishbone Vital Signs/I&O Vital Signs Date Time Temp Pulse Resp B/P (MAP) Pulse Ox O2 Delivery O2 Flow Rate FiO2 08/12/18 08:58 70 08/12/18 08:57 159/81 08/12/18 06:00 98.0 17 97 08/07/18 14:11 Room Air I&O- Last 24 Hours up to 6 AM 08/12/18 06:00 Intake Total 1610 ml Output Total 750 ml Balance 860 ml Laboratory Data Microbiology Microbiology 08/07/18 Blood Culture - Final, Complete Escherichia Coli 08/07/18 Blood Culture - Preliminary, Resulted No Growth after 72 hours. All specime... 08/07/18 Urine Culture - Final, Complete Escherichia Coli EFREN ARCHER MD Aug 12, 2018 09:28
[2018-08-12 09:58] LABS: BASO % 0.6 % (0.0-1.0); EOS # 0.2 10^3/uL (0.0-0.50); EOS % 2.4 % (0.0-3.0); HEMATOCRIT 26.2 % (42.0-52.0); HEMOGLOBIN 8.6 g/dl (13.5-17.5); LYMPH # 1.5 10^3/uL (1.5-4.5); LYMPH % 21.2 % (24.0-44.0); MEAN CORPUSCULAR HEMOGLOBIN 29.1 pg (27.0-33.0); MEAN CORPUSCULAR HGB CONC 32.8 g/dl (32.0-36.5); MEAN CORPUSCULAR VOLUME 88.5 fl (80.0-96.0); MONO # 0.7 10^3/uL (0.0-0.8); MONO % 9.9 % (0.0-5.0); NEUTROPHILS # 4.6 10^3/uL (1.8-7.7); NEUTROPHILS % 65.3 % (36.0-66.0); PLATELET COUNT, AUTOMATED 303 10^3/uL (150-450); RED BLOOD COUNT 2.96 10^6/uL (4.30-6.10); WHITE BLOOD COUNT 7.1 10^3/uL (4.0-10.0)
[2018-08-12] MEDS ORDERED: ACETAMINOPHEN TAB 650MG DOSE (2X325MG) PO PRN (10:00)
[2018-08-12 10:16] LABS: CALCIUM LEVEL 8.1 MG/DL (8.8-10.2); CREATININE FOR GFR 1.69 MG/DL (0.70-1.30); GLOMERULAR FILTRATION RATE 43.3 (>49); POTASSIUM SERUM 3.6 MEQ/L (3.5-5.1)
[2018-08-12] MEDS ORDERED: LEVA250T13 PO (12:10)
[2018-08-12] MEDS ORDERED: PRED10TA2 PO (12:11)
[2018-08-12 14:00] VITALS: BP 130/72
[2018-08-12] MEDS: RAMELTEON 8 MG TAB (ROZEREM) PO SCH (20:56)
[2018-08-12] MEDS: TAMSULOSIN 0.4 MG CAP PO SCH (20:57)
[2018-08-12] MEDS ORDERED: QUEtiapine FUMARATE 12.5 MG HALF-TAB PO SCH (21:00)
[2018-08-12 22:00] VITALS: BP 134/14
--- NOTE | 2018-08-13 05:23 | DS.PDOC ---
Discharge Summary General Date of Admission Aug 07, 2018 at 12:50 Date of Discharge 08/13/18 Discharge Summary DISCHARGE DIAGNOSES: Fall at home Gram negative bacteremia from UTI Metabolic encephalopathy due to UTI UTI History of C diff. Recent hemorrrhagic stroke SECONDARY TO hypertensive stroke. Hypertension Hyperlipidemia Gout with recent acute attack CKD stage 3 Anemia of chronic disease C6-C7 cervical spondylosis History of CHF DISCHARGE MEDS: PLS SEE BELOW HISTORY OF PRESENTING ILLNESS: 68 year old male with recent hemorrhagic stroke in right frontal lobe on 06/30/18, recent c diff infection still on treatment, HTN ,DM, ENEDINA non compliant with CPAP, left carotid artery stenosis s/p stenting, right carotid artery non critical stenosis being monitored for now, gout, CAD, CKD3, recent GIB who initially presented to [facility] on 06/29/18 with reported seizures, arrived with a Arnav Coma Scale of 3, was given loading dose of Dilantin and intubated. CT Head showed a right frontal mass so he was transferred to [facility] in [place], [place] for further work-up. At [facility] MRI on 06-30-18 showed a 3cm by 3cm right frontal lobe lesion with a hemorrhagic component, possible neoplasm or less likely transformation of an infarction. He was found to have leukocytosis which was thought to be from seizure activity and remained afebrile. He had significant hyponatremia, acute on chronic CKD and elevated blood sugars managed with insulin. He was evaluated by neurosurgery and had a resection of his right frontal mass on 07/04/18 after which he was maintained on a Decadron taper and continued on Dilantin for seizure prophylaxis. Pathology results, showed "macrophagic infiltrate, hemosiderin and rare/scattered atypical glia...consistent with subacute infarction"- no concern at this time for malignancy. He was evaluated by therapy and noted to have significant impairment in his ADLs and gait, and was deemed medically appropriate for discharge to Rehab Unit on 07-09-18. He was admitted to our ARU on 07/09/18 and was discharged from there on 08/06/18. On the day of discharge he was independent in his ADLS, gait was stable. He did have inversion of sleep wake cycle though as per even before he became sick he would sleep late into the morning till 11am and also take afternoon nap and he would be up and about most of the night. He did have significant apraxia and cognitive impairment as well as short term memory loss at discharge from ARU.Also he was being treated for a UTi with macrobid since 08/02/18. As per after going home he wanted to go upstairs to the bedroom and had to be reminded that he has been sleeping in the downstairs room for the past 2 years. He stumbled and fell in the living room at around 5:30 pm did not sustain any injury was helped up by teenage sons to the chair. He refused dinner as said his stomach was upset and he was nauseous. As the evening progressed into the night he became more and more confused and somnolent with increased tremors of the limbs and increased weakness. He had urinary incontinence and did not even know it. In the morning he was difficult to arouse and could not be got out of bed so came to the ED for evaluation. In the ED CT head did not reveal any new changes, labs were at baseline. Ua was dirty with 81 wbcs which is in fact less that previous UA. He was also noted to be hypertensive with Bp 206/91 .of He was admitted for AMS / metabolic encephalopathy for further work up. HOSPITAL COURSE: Gram negative bacteremia from UTi S/P ceftriaxone , to complete levaquin as outpt. Metabolic encephalopathy due to bacteremia and ongoing urinary infection Rule out post ictal state. Patient may have had an unwitnessed seizure at home this could be also due to change in place. s/p Telemetry. Will continue on all the home meds except macrobid UTI s/p iv ceftriaxone. to complete levaquin as outpt C diff no diarrhea as inpatient continue on deficid Q2 days. Recent hemorrrhagic stroke most probably hypertensive stroke. continue asa continue TEDS for dvt prophylaxis Hypertension will increase hydralazine dose to 75 tid and coreg Hyperlipidemia continue gemfibrosil Gout with recent acute attack continue Uloric prednisone taper. CKD stage 3 creatinine at baseline will monitor. continue calcitriol Anemia of chronic disease received aranesp and venofer this week in ARU History of CHF volume status is now euvolemic GI prophylaxis Recent h/o GIB ? stress ulcer will give pantoprazole zofran DVT prophylaxis ordered. Plan/VTE VTE Prophylaxis Ordered?: Yes DISCHARGE Physical Examination vitals pls see below General Exam: Positive: Alert, Cooperative, No Acute Distress, Other Eye Exam: Positive: PERRLA, Conjunctiva & lids normal Neck Exam: Positive: Supple Chest Exam: Positive: Clear to auscultation, Normal air movement Heart Exam: Positive: Rate Normal, Regular Rhythm, Normal S1, Normal S2; Negative: Gallops, Murmurs, Rubs, Other Abdomen Exam: Positive: BS Hyperactive, Soft, Tenderness (epigastrium) Extremity Exam: Positive: Normal pulses; Negative: Clubbing, Cyanosis, Edema Skin Exam: Positive: Nl turgor and temperature Neuro Exam: Positive: Normal Speech, Strength at 5/5 X4 ext, Sensation Intact Discharge laboratory data: pls see below IMAGING STUDIES: CT BRAIN WITHOUT CONTRAST: 08/07/2018. Clinical history: ED order states altered mental status. In addition, the patient is status post right frontal craniotomy for frontal lobe mass noted on CT 06/29/2018. Comparison: CT 07/20/2018, 07/14/2018, 06/29/2018. Findings: Noncontrast soft tissue and bone window images were obtained. Prior right frontal craniotomy is again seen. There is no pneumocephalus remaining. The extra-axial fluid collection at a craniotomy site has decreased since the previous study on 07/20. Hypodensity in the right frontal lobe with mass effect on the frontal horn of the right lateral ventricle is again seen, not much changed. No new or superimposed extra-axial fluid collection, hemorrhage, intraparenchymal or ventricular hemorrhage, or new hypodensities. I see no interval acute infarct. There is atrophy and proportionate ventriculomegaly, age appropriate. Heterogeneous low attenuation white matter changes in the periventricular, subcortical and deep centrum semiovale tracts as before and consistent with small-vessel ischemic disease. Brainstem intact. Cerebellum shows some atrophy but no evidence of posterior fossa hemorrhage or mass. Basal cisterns were intact. Mastoids and the visualized sinuses show only minimal mucosal thickening in some of the left ethmoid and sphenoid air cells. The maxillary sinuses are not visualized. The skull base shows some atherosclerotic calcifications in the carotid siphons. Aside from the craniotomy, I see no acute bony findings in the calvarium or skull base. Impression: 1. Status post right frontal craniotomy with interval decrease in the extra-axial fluid collection since the 07/20/2018 study and resolution of the postoperative pneumocephalus. No new extra-axial fluid collections or intracranial hemorrhage. 2. Low attenuation zone in the right frontal lobe with mass effect on the frontal horn of the right lateral ventricle again seen and unchanged consistent with a mass. I do not have pathologic results of his brain biopsy. 3. Chronic small vessel white matter ischemic changes, proportionate ventricular size and cortical atrophy and posterior fossa with some cerebellar atrophy, all stable and unchanged. 4. Some vascular calcifications carotid siphons with the skull base and calvarium showing the postoperative changes from craniotomy in the right frontal region and no other significant finding. Electronically Signed by Vamshi Gandhi MD 08/07/2018 07:[address] CERVICAL SPINE WITHOUT CONTRAST: 08/07/2018. Clinical history: Trauma. Comparison: 06/29/2018. Findings: Standard trauma protocol was utilized. There is cervical spondylosis greatest at C6-7 with anterior and posterior osteophytes and disc space narrowing. Smaller osteophytes with slight narrowing at C3-4 through C5-6. There is no compression deformity or destructive lesion. The dens show some degenerative changes with its articulation with the anterior arch of C1 but no fracture of the dens. Its relationship to the lateral masses normal on the coronal reconstructions. Craniocervical junction unremarkable. The cervical thoracic junction normal. Ring of C1 intact. Spinous processes, lamina, pedicles, facets and transverse processes are without acute finding. There is some facet hypertrophic change at multiple levels. Central canal without stenosis. Foramina are ample at C2-3 through C5-6. At C6-7, there is some mild foraminal encroachment due to uncinate spurring and some facet arthropathy bilaterally.No prevertebral swelling. There is no torticollis. There are heavy vascular calcifications in the carotid artery on the right. Surgical clips in the left carotid from presumed prior endarterectomy. No visible soft tissue masses. The portions of parotid and submandibular glands seen are unremarkable. Airway grossly intact. Impression: 1. Degenerative disc and facet arthritic changes with some foraminal encroachment at C6-7 and cervical spondylosis greatest at that level, less at C3-4 through C5-6. No central canal stenosis. No compression fracture or malalignment. No prevertebral swelling. Nothing acute. Electronically Signed by Vamshi Gandhi MD 08/07/2018 07:35 P TIME SPENT ON HOSPITAL DISCHARGE: 30 MIN. Vital Signs/I&Os Vital Signs Date Time Temp Pulse Resp B/P (MAP) Pulse Ox O2 Delivery O2 Flow Rate FiO2 08/12/18 22:00 98.1 68 18 134/14 (54) 97 08/07/18 14:11 Room Air I&O- Last 24 Hours up to 6 AM 08/13/18 06:00 Intake Total 720 ml Output Total 525 ml Balance 195 ml Laboratory Data Labs 24H Laboratory Tests 2 08/12/18 09:39: Immature Granulocyte % (Auto) 0.6, White Blood Count 7.1, Red Blood Count 2.96L, Hemoglobin 8.6L, Hematocrit 26.2L, Mean Corpuscular Volume 88.5, Mean Corpus cular Hemoglobin 29.1, Mean Corpuscular Hemoglobin Concent 32.8, Red Cell Distribution Width 17.9H, Platelet Count 303, Neutrophils (%) (Auto) 65.3, Lymphocytes (%) (Auto) 21.2L, Monocytes (%) (Auto) 9.9H, Eosinophils (%) (Auto) 2.4, Basophils (%) (Auto) 0.6, Neutrophils # (Auto) 4.6, Lymphocytes # (Auto) 1.5, Monocytes # (Auto) 0.7, Eosinophils # (Auto) 0.2, Basophils # (Auto) 0.0, Nucleated Red Blood Cells % (auto) 0.0, Anion Gap 11, Glomerular Filtration Rate 43.3L, Blood Urea Nitrogen 21H, Creatinine 1.69H, Sodium Level 138, Potassium Level 3.6, Chloride Level 105, Carbon Dioxide Level 22, Calcium Level 8.1L, Vitamin B12 Level 458 CBC/BMP Laboratory Tests 08/12/18 09:39 Red Blood Count 2.96 L, Mean Corpuscular Volume 88.5, Mean Corpuscular Hemoglobin 29.1, Mean Corpuscular Hemoglobin Concent 32.8, Red Cell Distribution Width 17.9 H, Neutrophils (%) (Auto) 65.3, Lymphocytes (%) (Auto) 21.2 L, Monocytes (%) (Auto) 9.9 H, Eosinophils (%) (Auto) 2.4, Basophils (%) (Auto) 0.6, Neutrophils # (Auto) 4.6, Lymphocytes # (Auto) 1.5, Monocytes # (Auto) 0.7, Eosinophils # (Auto) 0.2, Basophils # (Auto) 0.0, Calcium Level 8.1 L Microbiology Microbiology 08/07/18 Blood Culture - Final, Complete Escherichia Coli 08/07/18 Blood Culture - Final, Complete NO GROWTH AFTER 5 DAYS 08/07/18 Urine Culture - Final, Complete Escherichia Coli Discharge Medications Scheduled Aspirin (Aspirin 81) 81 Mg Tab, 81 MG PO DAILY, (Reported) Calcitriol (Rocaltrol) 0.25 Mcg Cap, 0.25 MCG PO DAILY, (Reported) Carvedilol (Carvedilol) 12.5 Mg Tab, 50 MG PO BID Febuxostat (Uloric) 40 Mg Tab, 120 MG PO DAILY Fidaxomicin (Dificid) 200 Mg Tab, 200 MG PO Q2D Folic Acid (Folic Acid) 1 Mg Tab, 1 MG PO DAILY Gemfibrozil (Gemfibrozil) 600 Mg Tab, 600 MG PO BID, (Reported) Hydralazine HCl (Hydralazine HCl) 25 Mg Tab, 50 MG PO Q8H Levofloxacin Hemihydrate (Levaquin) 250 Mg Tab, 250 MG PO DAILY@06 Phenytoin (Phenytoin) 50 Mg Chw, 150 MG PO Q8H YOu have a 2 week supply, have your Dilantin levels checked by Dr. Mayers at our next visit to adjust the dose. Prednisone (Prednisone) 10 Mg Tab, 10 MG PO TAPER Take 4 tabs daily x 3 days, then 3 tabs daily x 3 days, then 2 tabs daily x 3 days, then 1 tab daily x 3 days and stop Ramelteon (Rozerem) 8 Mg Tab, 8 MG PO QHS Tamsulosin Hydrochloride (Flomax) 0.4 Mg Cap, 0.4 MG PO QHS, (Reported) Scheduled PRN Albuterol/Ipratropium (Ipratropium Lonedell/Albut 0.5-2.5 (3) mg/3Ml) 1 Lillian Lillian, 1 LILLIAN INH Q6H PRN for WHEEZING, (Reported) Allergies Coded Allergies: No Known Allergies (Verified , 03/30/18) EFREN ARCHER MD Aug 13, 2018 05:19
[2018-08-13 06:00] VITALS: BP 138/74
[2018-08-13] MEDS ORDERED: LevoFLOXacin 250 MG TABLET PO SCH (06:00)
[2018-08-13] MEDS: PHENYTOIN 50 MG CHEW TABLET PO SCH (06:06)
[2018-08-13] MEDS ORDERED: predniSONE 10 MG TAB PO SCH (09:00)
[2018-08-13] MEDS: **hydrALAZINE** 50 MG TAB PO SCH (09:00)
[2018-08-13] MEDS: CALCITRIOL 0.25 MCG CAP (S0169) PO SCH (09:07)
[2018-08-13] MEDS: FEBUXOSTAT 40 MG TABLET (ULORIC) PO SCH (09:07)
[2018-08-13] MEDS: SENOKOT S TAB PO SCH (09:07)
[2018-08-13] MEDS: PANTOPRAZOLE 40MG INJ (PROTONIX) (C9113) IV SCH (09:07)
[2018-08-13 09:08] VITALS: BP 138/74
[2018-08-13] MEDS: CARVedilol 12.5 MG TAB PO SCH (09:08)
[2018-08-13] MEDS: GEMFIBROZIL 600 MG TAB PO SCH (09:08)
[2018-08-13] MEDS: FOLIC ACID 1 MG TAB PO SCH (09:08)
[2018-08-13] MEDS: ASPIRIN 81 MG ENTERIC TAB PO SCH (09:08)
[2018-08-14 00:07] LABS: HOMOCYST(E)INE SERUM 25.9 umol/L (0.0-15.0)
[2018-08-15] MEDS ORDERED: predniSONE 20 MG TAB PO SCH (09:00)
[2018-08-16] MEDS ORDERED: predniSONE 10 MG TAB PO SCH (09:00)
[2018-08-17] MEDS ORDERED: predniSONE 5 MG TAB PO SCH (09:00)
== END 2018-08-13 11:50 | disposition home health service (06) | DRG 689 ==
LOC: M ED 09:06 → EDBD 09:06 → M ED INP 12:50 → M MSPAV 14:16
PROVIDERS: ADMIT Internal Medicine Nephrology; ATTEND General Practice
DX: N39.0 Urinary tract infection, site not specified (principal); G93.41 Metabolic encephalopathy; R78.81 Bacteremia; I13.0 Hypertensive heart and chronic kidney disease with heart failure and stage 1 through stage 4 chronic kidney disease, or unspecified chronic kidney disease; E78.5 Hyperlipidemia, unspecified; Z86.73 Personal history of transient ischemic attack (TIA), and cerebral infarction without residual deficits; M10.9 Gout, unspecified; N18.3 Chronic kidney disease, stage 3 (moderate); I50.9 Heart failure, unspecified; D63.1 Anemia in chronic kidney disease; E11.9 Type 2 diabetes mellitus without complications; G47.33 Obstructive sleep apnea (adult) (pediatric); Z91.19 Patient's noncompliance with other medical treatment and regimen; I25.10 Atherosclerotic heart disease of native coronary artery without angina pectoris; Z79.82 Long term (current) use of aspirin; Z79.899 Other long term (current) drug therapy; I65.8 Occlusion and stenosis of other precerebral arteries; D50.9 Iron deficiency anemia, unspecified

== ENCOUNTER → 2018-08-17 | Outpatient (REF) | payer OTHER, MEDICARE ==
[~2018-08-17] MED LIST changes: +LEVA250T13 PO
== END ==
LOC: M LAB REF 17:55
PROVIDERS: ATTEND Psychiatry & Neurology Neurology
DX: R56.9 Unspecified convulsions (principal)

== ENCOUNTER → 2018-08-17 | Outpatient (REF) | payer OTHER, MEDICARE ==
[2018-08-17 14:21] LABS: CHOLESTEROL RISK RATIO 1.818 (<5)
== END ==
LOC: M LAB REF 13:11
PROVIDERS: ATTEND Internal Medicine Nephrology
DX: E78.2 Mixed hyperlipidemia (principal)

== ENCOUNTER 2018-08-24 09:23 | Outpatient (CLI) | payer OTHER, MEDICARE ==
[2018-08-24] VITALS (7 sets, daily range): BP systolic 132–178; BP diastolic 61–88
[~2018-08-24] VITALS: Ht 172.7 cm; Wt 101.7 kg
[2018-08-24] MEDS ORDERED: IRON SUCROSE 475 MG in NS 250 ML IV ONE (09:30)
[2018-08-24] MEDS ORDERED: IRON SUCROSE 25 MG in NS 50 ML IV ONE (09:30)
== END 2018-08-24 16:00 | disposition home or self-care (01) ==
LOC: M INFU 09:23
PROVIDERS: ATTEND Internal Medicine Nephrology
DX: D50.9 Iron deficiency anemia, unspecified (principal)
CPT/HCPCS: 96365; 96366; J1756

== ENCOUNTER → 2018-09-07 | Outpatient (REF) | payer OTHER, MEDICARE | LOC: M LAB REF 13:38 | PROVIDERS: ATTEND Internal Medicine Nephrology | DX: D64.9 Anemia, unspecified (principal) ==

== ENCOUNTER → 2018-09-14 | Outpatient (REF) | payer OTHER, MEDICARE | LOC: M LAB REF 13:48 | PROVIDERS: ATTEND Internal Medicine Nephrology | DX: D64.9 Anemia, unspecified (principal); N39.0 Urinary tract infection, site not specified ==

== ENCOUNTER 2018-09-17 09:13 | Outpatient (CLI) | payer OTHER, MEDICARE ==
[~2018-09-17] VITALS: Ht 172.7 cm; Wt 101.7 kg
[~2018-09-17 09:13] MED LIST changes: -ASPI1TAB PO; +ASPI81TA26 PO; +CHLO125TA PO; +HEPA500011 SQ; +IRON100V IV; -IRON10VL IV; -SENN1TAB2 PO; +SENN1TAB40 PO; -[UNRECOGNIZED DRUG - CODE] SQ
[2018-09-17 09:20] VITALS: BP 166/76
[2018-09-17 15:40] VITALS: BP 152/76
== END 2018-09-17 15:35 | disposition home or self-care (01) ==
LOC: M INFU 09:13
PROVIDERS: ATTEND Internal Medicine Nephrology
DX: D64.9 Anemia, unspecified (principal); Z79.4 Long term (current) use of insulin; Z79.82 Long term (current) use of aspirin; Z79.899 Other long term (current) drug therapy
CPT/HCPCS: 36415; 36430; 86850; 86900; 86901; 86920; P9016

== ENCOUNTER → 2018-10-08 | Outpatient (CLI) | payer OTHER, MEDICARE ==
[~2018-10-08] MED LIST changes: +DILA100C PO; +HYDR50TA PO
== END ==
LOC: M LAB 11:43
PROVIDERS: ATTEND Neurological Surgery
DX: G40.909 Epilepsy, unspecified, not intractable, without status epilepticus (principal)

== ENCOUNTER → 2018-10-09 | Outpatient (REF) | payer OTHER, MEDICARE ==
[2018-10-09 10:04] LABS: APPEARANCE, URINE CLOUDY (CLEAR); BACTERIA, URINE AUTO 3+ (NEGATIVE); BILIRUBIN, URINE AUTO NEGATIVE (NEGATIVE); BLOOD, URINE BLOOD 1+ (NEGATIVE); COLOR, URINE YELLOW (YELLOW); GLUCOSE, URINE (UA) AUTO NEGATIVE (NEGATIVE); KETONE, URINE AUTO NEGATIVE (NEGATIVE); LEUKOCYTE ESTERASE, URINE AUTO 3+ (NEGATIVE); MUCUS, URINE SMALL (NEGATIVE); NITRITE, URINE AUTO NEGATIVE (NEGATIVE); PROTEIN, URINE AUTO 2+ mg/dL (NEGATIVE); RBC, URINE AUTO 0 /HPF (0-3); SPECIFIC GRAVITY URINE AUTO 1.008 (1.002-1.035); SQUAMOUS EPITHELIAL CELL UR AU 0 /HPF (0-6); UROBILINOGEN, URINE AUTO 0.2 mg/dL (0.0-2.0); WBC, URINE AUTO TNTC /HPF (0-3)
== END ==
LOC: M LAB REF 09:17
PROVIDERS: ATTEND Internal Medicine Nephrology
DX: N39.0 Urinary tract infection, site not specified (principal)

== ENCOUNTER 2018-10-10 21:34 | Inpatient (IN) | payer OTHER, MEDICARE ==
[~2018-10-10] VITALS: Ht 175.3 cm; Wt 90.5 kg
[2018-10-10] MEDS: PHENYTOIN ER 100 MG CAP PO SCH (21:00)
[~2018-10-10 21:34] MED LIST changes: -DILA100C PO; -HYDR50TA PO; -INDO50CA PO; +INDO50CA11 PO
[2018-10-10] MEDS ORDERED: NS 1,000 ML IV SCH (22:16)
[2018-10-10 22:45] LABS: BASO # 0.1 10^3/uL (0.0-0.2); BASO % 0.5 % (0.0-1.0); EOS # 0.2 10^3/uL (0.0-0.50); EOS % 1.9 % (0.0-3.0); HEMATOCRIT 26.7 % (42.0-52.0); HEMOGLOBIN 8.6 g/dl (13.5-17.5); LYMPH # 1.2 10^3/uL (1.5-4.5); LYMPH % 9.7 % (24.0-44.0); MEAN CORPUSCULAR HEMOGLOBIN 28.1 pg (27.0-33.0); MEAN CORPUSCULAR HGB CONC 32.2 g/dl (32.0-36.5); MEAN CORPUSCULAR VOLUME 87.3 fl (80.0-96.0); MONO % 8.6 % (0.0-5.0); NEUTROPHILS # 9.6 10^3/uL (1.8-7.7); NEUTROPHILS % 78.9 % (36.0-66.0); PLATELET COUNT, AUTOMATED 493 10^3/uL (150-450); RED BLOOD COUNT 3.06 10^6/uL (4.30-6.10); WHITE BLOOD COUNT 12.1 10^3/uL (4.0-10.0)
--- NOTE | 2018-10-10 22:49 | REPVR ---
EXAM: CT Head Without Contrast EXAM DATE/TIME: 10/10/2018 10:21 PM CLINICAL HISTORY: 68 years old, male; Signs and symptoms; Altered mental status/memory loss; Prior surgery; Surgery date: 6+ months; Additional info: AMS w/ neuro def TECHNIQUE: Imaging protocol: Axial computed tomography images of the head/brain without contrast. Radiation optimization: All CT scans at this facility use at least one of these dose optimization techniques: automated exposure control; mA and/or kV adjustment per patient size (includes targeted exams where dose is matched to clinical indication); or iterative reconstruction. COMPARISON: CT Head without contrast 08/07/2018 9:17 AM FINDINGS: Brain: Focus of macrocystic encephalomalacia in the underlying parenchyma likely postsurgical. Minimal thickening of the extra-axial soft tissues at the surgical bed likely postsurgical. There is parenchymal volume loss. White matter changes are demonstrated in the subcortical, centrum semiovale and periventricular white matter consistent with small vessel white matter angiopathic gliosis. Ventricles: The degree of ventricular dilatation is normal for age. No pathologic enlargement demonstrated. Bones/joints: Right anterior parietal craniotomy. Sinuses: Visualized sinuses are unremarkable. No acute sinusitis. Mastoid air cells: Visualized mastoid air cells are unremarkable. No mastoid effusion. Soft tissues: Unremarkable. IMPRESSION: There is parenchymal volume loss. White matter changes are demonstrated in the subcortical, centrum semiovale and periventricular white matter consistent with small vessel white matter angiopathic gliosis. No acute findings. Electronically signed by: Arnold Akhtar On 10/10/2018 22:49:37 PM
[2018-10-10 23:15] LABS: ACETAMINOPHEN LEVEL < 2.0 UG/ML (10.0-30.0); ALBUMIN 3.4 GM/DL (3.2-5.2); ALT/SGPT 6 U/L (12-78); BILIRUBIN,DIRECT 0.1 MG/DL (0.0-0.2); BILIRUBIN,TOTAL 0.3 MG/DL (0.2-1.0); BLOOD UREA NITROGEN 68 MG/DL (7-18); CALCIUM LEVEL 8.5 MG/DL (8.8-10.2); CARBON DIOXIDE LEVEL 16 MEQ/L (21-32); CHLORIDE LEVEL 108 MEQ/L (98-107); CPK CREATINE PHOSPHOKINASE 26 U/L (39-308); CREATININE FOR GFR 3.59 MG/DL (0.70-1.30); GLOMERULAR FILTRATION RATE 18.2 (>49); GLUCOSE, FASTING 127 MG/DL (70-100); MB/CK RELATIVE INDEX 7.69 (< OR =4); POTASSIUM SERUM 4.4 MEQ/L (3.5-5.1); SALICYLATE LEVEL < 1.7 MG/DL (5.0-30.0); SODIUM LEVEL 137 MEQ/L (136-145); TOTAL PROTEIN 7.5 GM/DL (6.4-8.2); TROPONIN I < 0.02 NG/ML (< 0.10)
[2018-10-10 23:55] LABS: AMPHETAMINES LEVEL URINE NEGATIVE (NEGATIVE); BARBITURATES URINE NEGATIVE (NEGATIVE); BENZODIAZEPINES URINE NEGATIVE (NEGATIVE); CANNABINOIDS URINE NEGATIVE (NEGATIVE); COCAINE METABOLITE URINE NEGATIVE (NEGATIVE); METHADONE URINE NEGATIVE (NEGATIVE); OPIATES URINE NEGATIVE (NEGATIVE); PHENCYCLIDINE URINE NEGATIVE (NEGATIVE)
[2018-10-11] MEDS ORDERED: LANTINJ4 SC (00:08)
[2018-10-11] MEDS ORDERED: ULOR80TA PO (00:08)
[2018-10-11] MEDS ORDERED: DILA100C PO (00:08)
[2018-10-11] MEDS ORDERED: FOLI1TAB11 PO (00:08)
[2018-10-11] MEDS ORDERED: TORS20TA2 PO (00:08)
[2018-10-11] MEDS ORDERED: CARV25TA PO (00:08)
[2018-10-11] MEDS ORDERED: HYDR50TA PO (00:08)
[2018-10-11] MEDS ORDERED: ROZE8TAB16 PO (00:08)
[2018-10-11] MEDS ORDERED: CALC1CAP31 PO (00:08)
[2018-10-11] MEDS: NS 1,000 ML IV SCH ×2 (01:00→14:35)
[2018-10-11] MEDS ORDERED: DEXTROSE 50% 50 ML SYRINGE IV PRN (01:00)
[2018-10-11] MEDS ORDERED: GLUCOSE 4 GM CHEW TABLET PO PRN (01:00)
[2018-10-11] MEDS ORDERED: GLUCAGON FOR INJ 1 MG VIAL (J1610) SC PRN (01:00)
[2018-10-11] MEDS: cefTRIAXone SOD 1 GM in D5W MINI-BAG PLUS 50 ML IV SCH (02:00)
--- NOTE | 2018-10-11 02:21 | HPEPDOC ---
General Date of Admission Oct 11, 2018 at 00:56 Chief Complaint The patient is a 68-year-old male admitted with a reason for visit of UTI. History of Present Illness 68-year-old male with past medical history of HTN, DM, ENEDINA, CAD, CKD Stage III, C. Diff, and a right frontal lobe lesion discovered in June 2018 s/p resecti on with Neurosurgery at [facility] with pathology consistent with subacute infarction. The patient was then sent to ARU here from 07/09-08/06/18 for functional optimization.The patient was then admitted to [facility] from 08/07-08/13 for Sepsis 2/2 UTI Bacteremia. Of note, the patient has had 3 UTI's since his neurosurgical intervention in June 2018. He has been treated for this by infectious disease while in ARU and nephrology as an outpatient during this time. At this time, the patient returns with complaints of alteration in mental status. The patient's history was limited given his clinical condition. However, according to the patient's he has been increasingly lethargic and fatigued over the last several days. This culminated this evening when the patient thought that he was going to the bathroom but was urinating in the bedroom. The patient's states that his lethargy and confusion is consistent with his presentation when he has had a urinary tract infection. She also notes that the patient's urine has been having a distinct smell. She denies her noting any fevers, chills, or any complaints of dysuria at home. In the ER, the patient was noted to have a urinalysis suggestive of underlying urinary tract infection. In addition, the patient also had leukocytosis and acute kidney injury superimposed on chronic kidney disease. The patient will be admitted to the hospitalist service for further evaluation and management. Home Medications Scheduled Aspirin (Aspirin EC) 81 Mg Tab, 81 MG PO DAILY, (Reported) Calcitriol (Rocaltrol) 0.25 Mcg Cap, 0.25 MCG PO DAILY, (Reported) Calcitriol (Calcitriol) 0.25 Mcg Capsule, 0.25 MCG PO DAILY, (Reported) Carvedilol (Carvedilol) 25 Mg Tablet, 25 MG PO BID, (Reported) Febuxostat (Uloric) 80 Mg Tablet, 120 MG PO DAILY, (Reported) Folic Acid (Folic Acid) 1 Mg Tablet, 1 MG PO DAILY, (Reported) Gemfibrozil (Gemfibrozil) 600 Mg Tab, 600 MG PO BID, (Reported) Hydralazine HCl (Hydralazine HCl) 50 Mg Tablet, 50 MG PO TID, (Reported) Insulin Glargine,Hum.rec.anlog (Lantus Solostar) 100 Unit/1 Ml Insuln.pen, 12 UNIT SC QAM, (Reported) Phenytoin Sodium Extended (Dilantin) 100 Mg Capsule, 300 MG PO QHS, (Reported) Ramelteon (Rozerem) 8 Mg Tablet, 8 MG PO QHS, (Reported) Tamsulosin HCl (Flomax) 0.4 Mg Cap, 0.4 MG PO QHS, (Reported) Torsemide (Torsemide) 20 Mg Tablet, 20 MG PO BID, (Reported) Allergies Coded Allergies: No Known Allergies (Verified , 03/30/18) Past Medical History Medical History As noted in HPI. Surgical History Left carotid endarterectomy stenting. Right front lobe surgery Bilateral cataract surgery Social History * Smoker: Denies Alcohol: Denies Drugs: denies Review of Systems Other systems 10 point review of systems is limited given the patient's clinical presentation. Please refer to HPI for the full extent of review of systems. Physical Examination General Exam: Positive: Cooperative (patient arousable), No Acute Distress ENT Exam: Positive: Atraumatic; Negative: Mucous membr. moist/pink (dry mucous membranes) Chest Exam: Positive: Diminished Heart Exam: Positive: Rate Normal, Normal S1, Normal S2 Abdomen Exam: Positive: Soft; Negative: Tenderness Extremity Exam: Negative: Tenderness, Swelling Vital Signs Vital Signs Date Time Temp Pulse Resp B/P (MAP) Pulse Ox O2 Delivery O2 Flow Rate FiO2 10/10/18 22:15 10/10/18 21:36 97.2 69 12 99 Room Air Laboratory Data Labs 24H Laboratory Tests 2 10/10/18 22:07: Bedside Glucose (Misc Panel) 123H 10/10/18 22:34: Immature Granulocyte % (Auto) 0.4, White Blood Count 12.1H, Red Blood Count 3.06L, Hemoglobin 8.6L, Hematocrit 26.7L, Mean Corpuscular Volume 87.3, Mean Corpuscular Hemoglobin 28.1, Mean Corpuscular Hemoglobin Concent 32.2, Red Cell Distribution Width 15.2H, Platelet Count 493H, Neutrophils (%) (Auto) 78.9H, Lymphocytes (%) (Auto) 9.7L, Monocytes (%) (Auto) 8.6H, Eosinophils (%) (Auto) 1 .9, Basophils (%) (Auto) 0.5, Neutrophils # (Auto) 9.6H, Lymphocytes # (Auto) 1.2L, Monocytes # (Auto) 1.0H, Eosinophils # (Auto) 0.2, Basophils # (Auto) 0.1, Nucleated Red Blood Cells % (auto) 0.0, Urine Color YELLOW, Urine Appearance CLOUDYH, Urine pH 5.0, Urine Specific [place] 1.008, Urine Protein 2+H, Urine Glucose (UA) NEGATIVE, Urine Ketones TRACEH, Urine Blood 1+H, Urine Nitrite NEGATIVE, Urine Bilirubin NEGATIVE, Urine Urobilinogen 0.2, Urine Leukocyte Esterase 3+H, Urine WBC (Auto) TNTCH, Urine RBC (Auto) 18H, Urine Hyaline Casts (Auto) 0, Urine Bacteria (Auto) 3+H, Urine Squamous Epithelial Cells 0, Urine Transitional Epithelial Cells <1, Urine Amorphous Sediment SMALLH, Urine Sperm (Auto) , Anion Gap 13, Glomerular Filtration Rate 18.2L, Calcium Level 8.5L, Aspartate Amino Transf (AST/SGOT) 4L, Alanine Aminotransferase (ALT/SGPT) 6L, Alkaline Phosphatase 115, Total Bilirubin 0.3, Direct Bilirubin 0.1, Total Creatine Kinase 26L, Creatine Kinase MB 2.0, Creatine Kinase MB Relative Index 7.69H, Troponin I < 0.02, Total Protein 7.5, Albumin 3.4, Albumin/Globulin Ratio 0.83L, Thyroid Stimulating Hormone (TSH) 1.720, Salicylates Level < 1.7L, Urine Amphetamines Screen NEGATIVE, Urine Benzodiazepines Screen NEGATIVE, Urine Opiates Screen NEGATIVE, Urine Methadone Screen NEGATIVE, Acetaminophen Level < 2.0L, Urine Barbiturates Screen NEGATIVE, Urine Phencyclidine Screen NEGATIVE, Urine Cocaine Metabolite Screen NEGATIVE, Urine Cannabinoids Screen NEGATIVE CBC/BMP Laboratory Tests 10/10/18 22:34 Red Blood Count 3.06 L, Mean Corpuscular Volume 87.3, Mean Corpuscular Hemoglobin 28.1, Mean Corpuscular Hemoglobin Concent 32.2, Red Cell Distribution Width 15.2 H, Neutrophils (%) (Auto) 78.9 H, Lymphocytes (%) (Auto) 9.7 L, Monocytes (%) (Auto) 8.6 H, Eosinophils (%) (Auto) 1.9, Basophils (%) (Auto) 0.5, Neutrophils # (Auto) 9.6 H, Lymphocytes # (Auto) 1.2 L, Monocytes # (Auto) 1.0 H, Eosinophils # (Auto) 0.2, Basophils # (Auto) 0.1 Microbiology Microbiology 10/10/18 Blood Culture, Received Pending 10/10/18 Blood Culture, Received Pending 10/10/18 Urine Culture, Received Pending Plan / VTE VTE Prophylaxis Ordered?: Yes Plan Plan Recurrent Urinary Tract Infection UA from 10/09 done as an outpatient, and 10/10 on admission noted Cultures pending We will empirically start the patient on Rocephin given his previous culture susceptibilities to E. Coli Patient hemodynamically stable We will cont to monitor the patient Acute Kidney Injury superimposed on CKD Stage III Likely 2/2 Above, Decreased PO intake, while concomitantly taking diuretic therapy Baseline Serum Cr ~1.7, 3.59 on admission Hold nephrotoxins, diuretics Gentle IVF Hydration ordered Renal U/S ordered Urine Lytes Consider Nephro consult if the patient's renal function does not improve Hx of CHF with Preserved EF Patient appears to be dehydrated on presentation 2D ECHO ordered to f/u Hx of C. Diff Patient w/o any diarrhea at this time according to Diabetes Mellitus ISS ordered Hx of Right Frontal Lobe lesion/hemorrhagic stroke s/p Resection in 2019 CT Head with no acute changes noted Cont Dilantin for seizure prophylaxis Left carotid artery stenosis s/p stenting Cont ASA DVT Prophylaxis Iwona/HAILEY Norman MD Oct 11, 2018 02:21
[2018-10-11 07:47] LABS: HEMATOCRIT 24.5 % (42.0-52.0); HEMOGLOBIN 7.9 g/dl (13.5-17.5); MEAN CORPUSCULAR HEMOGLOBIN 28.2 pg (27.0-33.0); MEAN CORPUSCULAR HGB CONC 32.2 g/dl (32.0-36.5); MEAN CORPUSCULAR VOLUME 87.5 fl (80.0-96.0); WHITE BLOOD COUNT 9.7 10^3/uL (4.0-10.0)
[2018-10-11 08:03] LABS: PLATELET COUNT, AUTOMATED 383 10^3/uL (150-450)
[2018-10-11 08:07] LABS: ALBUMIN 2.9 GM/DL (3.2-5.2); ALT/SGPT < 6 U/L (12-78); BILIRUBIN,TOTAL 0.2 MG/DL (0.2-1.0); BLOOD UREA NITROGEN 70 MG/DL (7-18); CALCIUM LEVEL 8.4 MG/DL (8.8-10.2); CARBON DIOXIDE LEVEL 15 MEQ/L (21-32); CHLORIDE LEVEL 112 MEQ/L (98-107); GLOMERULAR FILTRATION RATE 19.3 (>49); GLUCOSE, FASTING 149 MG/DL (70-100); POTASSIUM SERUM 4.1 MEQ/L (3.5-5.1); SODIUM LEVEL 140 MEQ/L (136-145)
--- NOTE | 2018-10-11 08:08 | REP ---
Portable chest x-ray: Single view. History: Altered mental status. Comparison study: August 07, 2018. July 14, 2018 radiograph is also reviewed. Findings: EKG monitoring electrodes overlie the chest. Heart is not felt to be enlarged. Pulmonary vasculature is not increased. Pleural angles are sharp. There are degenerative changes at the shoulders. No other bony abnormality is seen. The thoracic aorta is slightly tortuous and calcific. There is a 9 mm nodular opacity projecting over the anterior third rib on the left in the upper lobe region. This does not appear to have been present previously. I cannot exclude a pulmonary nodule. Consider chest CT study. Impression: 9 mm nodular opacity left upper lobe region. Consider chest CT. Otherwise no acute disease. Electronically Signed by Gurpreet Pizano MD 10/11/2018 08:00 A
[2018-10-11 08:25] LABS: MAGNESIUM LEVEL 1.8 MG/DL (1.8-2.4); PHOSPHORUS LEVEL 4.6 MG/DL (2.5-4.9)
[2018-10-11] MEDS: ASPIRIN 81 MG ENTERIC TAB PO SCH ×3 (08:38→10:00)
[2018-10-11] MEDS: FOLIC ACID 1 MG TAB PO SCH ×3 (08:38→10:00)
[2018-10-11] MEDS: LACTOBACILLUS ACIDOPHILUS CAP (BACID) PO SCH ×7 (08:38→21:00)
[2018-10-11] MEDS: HumaLOG INSULIN (NovoLOG) PER UNIT SC SCH ×5 (08:39→20:27)
[2018-10-11 09:28] LABS: BASO % 0.3 % (0.0-1.0); EOS # 0.1 10^3/uL (0.0-0.50); LYMPH # 0.8 10^3/uL (1.5-4.5); LYMPH % 8.7 % (24.0-44.0); MONO # 0.8 10^3/uL (0.0-0.8); MONO % 8.2 % (0.0-5.0); NEUTROPHILS # 7.8 10^3/uL (1.8-7.7); NEUTROPHILS % 81.4 % (36.0-66.0)
[2018-10-11 09:37] LABS: PLATELET ESTIMATE NORMAL (NORMAL)
--- NOTE | 2018-10-11 10:04 | REP ---
URINARY TRACT SONOGRAPHY: HISTORY: Acute kidney injury on chronic kidney injury. FINDINGS: Incidental note is made of multiple gallstones within the lumen of the gallbladder. No pericholecystic fluid is seen. Scanning at the level of the urinary bladder demonstrates subtle echogenic debris in the posterior portion of the gallbladder. No mass lesion is seen. Gallbladder sinha are smooth. Renal cortical echogenicity pattern is normal and contours are smooth bilaterally. No hydronephrosis is seen. The right kidney measures 10.1 x 6.4 x 6.1 cm. Left renal dimensions are 9.9 x 6.5 x 6.9 cm. IMPRESSION: Cholelithiasis. Proteinaceous debris or cellular material in the lumen of the urinary bladder. No hydronephrosis is seen. Otherwise negative. Electronically Signed by Gurpreet Pizano MD 10/11/2018 11:36 A
[2018-10-11] MEDS ORDERED: NS 0.45% 1,000 ML IV SCH (15:30)
--- NOTE | 2018-10-11 15:34 | IPNPDOC ---
Subjective Date Seen The patient was seen on 10/11/18. Subjective Chief Complaint/HPI Altered mentation, weakness Objective Physical Examination General Exam: Positive: Cooperative (patient arousable), No Acute Distress ENT Exam: Positive: Atraumatic; Negative: Mucous membr. moist/pink (dry mucous membranes) Chest Exam: Positive: Diminished Heart Exam: Positive: Rate Normal, Normal S1, Normal S2 Abdomen Exam: Positive: Soft; Negative: Tenderness Extremity Exam: Negative: Tenderness, Swelling Assessment /Plan Assessment I personally saw and examined the patient earlier today in the emergency room The patient remains confused and unable to provide reliable history Patient's was present at bedside and provided some of the history Reports the patient's symptoms are similar to when he has had previous urinary tract infections Patient has decreased oral intake, odor to his urine as well as eventually progressing to confusion On exam, patient is lying in bed. No distress He is awake and alert, but not oriented He does not answer questions reliably On exam, lungs sound clear. Cardiac exam S1-S2 heard no rubs or gallops Abdomen soft, seems to have perhaps some slight abdominal discomfort to palpation in the suprapubic area Neurologically, the patient is awake, alert, seems to be able to move all 4 extremities. Did not answer orientation questions. Labs were personally reviewed. Renal ultrasound: IMPRESSION: Cholelithiasis. Proteinaceous debris or cellular material in the lumen of the urinary bladder. No hydronephrosis is seen. Otherwise negative CXR: Impression: 9 mm nodular opacity left upper lobe region. Consider chest CT. Otherwise no acute disease. Head CT: IMPRESSION: There is parenchymal volume loss. White matter changes are demonstrated in the subcortical, centrum semiovale and periventricular white matter consistent with small vessel white matter angiopathic gliosis. Acute metabolic encephalopathy secondary to recurrent UTI; -Urine cultures pending -Continue IV Rocephin -Patient had previous Escherichia coli with bacteremia -Also has previous history of C. difficilemonitor for any diarrhea with antibiotic use Acute kidney injury on chronic kidney disease stage III: -Likely secondary to poor oral intake in addition to being on torsemide -Continue IV fluids -Holding torsemide -Baseline creatinine around 1.7 -Renal ultrasound as noted aboveno hydronephrosis and no obstructive uropathy Chronic diastolic congestive heart failure/HFpEF: -2-D echocardiogram pending -Monitor for fluid overload with IV hydration History of C. 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: -Continue Dilantin for seizure prophylaxis -Head CT did not show acute findings as noted above Diabetes mellitus 2 with long-term insulin use: -Continue sliding scale -Holding basal insulin until oral intake is better Hypertension: -Patient has been refusing oral medications per RN in the ER -Ordered IV hydralazine instead Left carotid artery stenosis status post stenting: -Continue aspirin DVT prophylaxis: -SCDs and teds Plan/VTE VTE Prophylaxis Ordered?: Yes VS, I&O, 24H, Fishbone Vital Signs/I&O Vital Signs Date Time Temp Pulse Resp B/P (MAP) Pulse Ox O2 Delivery O2 Flow Rate FiO2 10/11/18 15:01 76 128/62 (84) 99 10/11/18 14:30 98.3 10/11/18 10:01 20 Room Air Laboratory Data 24H LABS Laboratory Tests 2 10/10/18 22:07: Bedside Glucose (Misc Panel) 123H 10/10/18 22:34: Immature Granulocyte % (Auto) 0.4, White Blood Count 12.1H, Red Blood Count 3.06L, Hemoglobin 8.6L, Hematocrit 26.7L, Mean Corpuscular Volume 87.3, Mean Corpuscular Hemoglobin 28.1, Mean Corpuscular Hemoglobin Concent 32.2, Red Cell Distribution Width 15.2H, Platelet Count 493H, Neutrophils (%) (Auto) 78.9H, Lymphocytes (%) (Auto) 9.7L, Monocytes (%) (Auto) 8.6H, Eosinophils (%) (Auto) 1.9, Basophils (%) (Auto) 0.5, Neutrophils # (Auto) 9.6H, Lymphocytes # (Auto) 1.2L, Monocytes # (Auto) 1.0H, Eosinophils # (Auto) 0.2, Basophils # (Auto) 0.1, Nucleated Red Blood Cells % (auto) 0.0, Urine Color YELLOW, Urine Appearance [place] UDYH, Urine pH 5.0, Urine Specific [place] 1.008, Urine Protein 2+H, Urine Glucose (UA) NEGATIVE, Urine Ketones TRACEH, Urine Blood 1+H, Urine Nitrite NEGATIVE, Urine Bilirubin NEGATIVE, Urine Urobilinogen 0.2, Urine Leukocyte Esterase 3+H, Urine WBC (Auto) TNTCH, Urine RBC (Auto) 18H, Urine Hyaline Casts (Auto) 0, Urine Bacteria (Auto) 3+H, Urine Squamous Epithelial Cells 0, Urine Transitional Epithelial Cells <1, Urine Amorphous Sediment SMALLH, Urine Sperm (Auto) , Anion Gap 13, Glomerular Filtration Rate 18.2L, Calcium Level 8.5L, Aspartate Amino Transf (AST/SGOT) 4L, Alanine Aminotransferase (ALT/SGPT) 6L, Alkaline Phosphatase 115, Total Bilirubin 0.3, Direct Bilirubin 0.1, Total Creatine Kinase 26L, Creatine Kinase MB 2.0, Creatine Kinase MB Relative Index 7.69H, Troponin I < 0.02, Total Protein 7.5, Albumin 3.4, Albumin/Globulin Ratio 0.83L, Thyroid Stimulating Hormone (TSH) 1.720, Salicylates Level < 1.7L, Urine Amphetamines Screen NEGATIVE, Urine Benzodiazepines Screen NEGATIVE, Urine Opiates Screen NEGATIVE, Urine Methadone Screen NEGATIVE, Acetaminophen Level < 2.0L, Urine Barbiturates Screen NEGATIVE, Urine Phencyclidine Screen NEGATIVE, Urine Cocaine Metabolite Screen NEGATIVE, Urine Cannabinoids Screen NEGATIVE 10/11/18 06:12: Bedside Glucose (Misc Panel) 151H 10/11/18 07:02: Immature Granulocyte % (Auto) 0.4, Neutrophils (%) (Auto) 81.4H, Lymphocytes (%) (Auto) 8.7L, Monocytes (%) (Auto) 8.2H, Eosinophils (%) (Auto) 1.0, Basophils (%) (Auto) 0.3, Neutrophils # (Auto) 7.8H, Lymphocytes # (Auto) 0.8L, Monocytes # (Auto) 0.8, Eosinophils # (Auto) 0.1, Basophils # (Auto) 0.0, Nucleated Red Blood Cells % (auto) 0.0, Anion Gap 13, Glomerular Filtration Rate 19.3L, Calcium Level 8.4L, Aspartate Amino Transf (AST/SGOT) 4L, Alanine Aminotransferase (ALT/SGPT) < 6L, Alkaline Phosphatase 94, Total Bilirubin 0.2, Total Protein 7.0, Albumin 2.9L, Albumin/Globulin Ratio 0.71L, Immature Granulocyte # (Auto) 0.0, Platelet Estimate NORMAL, Blood Urea Nitrogen 70H, Creatinine 3.40H, Sodium Level 140, Potassium Level 4.1, Chloride Level 112H, Carbon Dioxide Level 15L, Phosphorus Level 4.6, Magnesium Level 1.8 10/11/18 07:28: Bedside Glucose (Misc Panel) 145H 10/11/18 13:19: Bedside Glucose (Misc Panel) 133H CBC/BMP Laboratory Tests 10/10/18 22:34 Red Blood Count 3.06 L, Mean Corpuscular Volume 87.3, Mean Corpuscular Hemoglobin 28.1, Mean Corpuscular Hemoglobin Concent 32.2, Red Cell Distribution Width 15.2 H, Neutrophils (%) (Auto) 78.9 H, Lymphocytes (%) (Auto) 9.7 L, Monocytes (%) (Auto) 8.6 H, Eosinophils (%) (Auto) 1.9, Basophils (%) (Auto) 0.5, Neutrophils # (Auto) 9.6 H, Lymphocytes # (Auto) 1.2 L, Monocytes # (Auto) 1.0 H, Eosinophils # (Auto) 0.2, Basophils # (Auto) 0.1 10/11/18 07:02 Red Blood Count 2.80 L, Mean Corpuscular Volume 87.5, Mean Corpuscular Hemoglobin 28.2, Mean Corpuscular Hemoglobin Concent 32.2, Red Cell Distribution Width 15.2 H, Calcium Level 8.4 L, Phosphorus Level 4.6, Aspartate Amino Transf (AST/SGOT) 4 L, Alanine Aminotransferase (ALT/SGPT) < 6 L, Alkaline Phosphatase 94, Total Bilirubin 0.2, Total Protein 7.0, Albumin 2.9 L Microbiology Microbiology 10/10/18 Blood Culture, Received Pending 10/10/18 Blood Culture, Received Pending 10/10/18 Urine Culture, Received Pending VIJAY PALOMARES MD Oct 11, 2018 15:34
[2018-10-11] MEDS: hydrALAZINE INJ 20 MG/ML VIAL IV SCH ×3 (16:00→23:30)
[2018-10-11 18:50] VITALS: BP 148/68
[2018-10-11 20:00] VITALS: BP 158/81
[2018-10-11] MEDS: PHENYTOIN ER 100 MG CAP PO SCH ×2 (20:32→21:00)
[2018-10-11] MEDS: SODIUM BICARBONATE 75 MEQ in NS 0.45% 1,000 ML IV SCH (22:00)
[2018-10-12] VITALS (7 sets, daily range): BP systolic 132–192; BP diastolic 66–88
[2018-10-12] MEDS: cefTRIAXone SOD 1 GM in D5W MINI-BAG PLUS 50 ML IV SCH (00:52)
--- NOTE | 2018-10-12 01:08 | ECGEPIP ---
Stationary ECG Study [facility] - ED Test Date: 2018-10-10 Pat Name: RADHA MONTES Department: Room: [place] [address] Gender: M [employer] Tra[employer]: ETHAN : 1950 Requested By: HARJIT PACHECO Order Number: [id number] Reading MD: Donell Hernandez Measurements Intervals [place] Rate: 70 P: -15 CO: 184 QRS: -12 QRSD: 109 T: 25 QT: 410 QTc: 442 Interpretive Statements SINUS RHYTHM SEPTAL MYOCARDIAL INFARCTION, OF INDETERMINATE AGE MODERATE INTRAVENTRICULAR CONDUCTION DELAY SIMILAR TO 08/07/18 Electronically Signed On 10-12-2018 1:08:06 EDT by Donell Hernandez
[2018-10-12] MEDS: hydrALAZINE INJ 20 MG/ML VIAL IV SCH ×5 (03:30→18:05)
[2018-10-12 06:11] LABS: HEMATOCRIT 26.7 % (42.0-52.0); HEMOGLOBIN 8.4 g/dl (13.5-17.5); MEAN CORPUSCULAR HEMOGLOBIN 28.1 pg (27.0-33.0); MEAN CORPUSCULAR HGB CONC 31.5 g/dl (32.0-36.5); MEAN CORPUSCULAR VOLUME 89.3 fl (80.0-96.0); PLATELET COUNT, AUTOMATED 368 10^3/uL (150-450); RED BLOOD COUNT 2.99 10^6/uL (4.30-6.10); WHITE BLOOD COUNT 8.9 10^3/uL (4.0-10.0)
[2018-10-12 06:24] LABS: CALCIUM LEVEL 8.4 MG/DL (8.8-10.2); CREATININE FOR GFR 2.78 MG/DL (0.70-1.30); GLOMERULAR FILTRATION RATE 24.4 (>49); PHOSPHORUS LEVEL 3.9 MG/DL (2.5-4.9)
--- NOTE | 2018-10-12 08:46 | CR ---
DATE OF CONSULTATION: 10/11/2018 CONSULTATION FOR: Adan Lopez MD REASON FOR CONSULTATION: Acute renal failure and metabolic acidosis in this gentleman with altered mentation and urinary tract infection (UTI). HISTORY OF PRESENT ILLNESS: Mr. Isaac is a 68-year-old gentleman well-known to me from prior hospitalization and office followup. He has quite complicated medical problems, including hypertension, diabetes, coronary artery disease, obstructive sleep apnea, stage III chronic kidney disease (CKD), Clostridium (C) difficile colitis, and gout. He was recently admitted to acute rehab unit at [facility] following frontal lobe of brain resection in [facility] in [place] where he was transferred following seizures and was found to have a frontal lobe mass. This mass turned out to be a stroke after the surgery. In any event, patient had a complicated hospitalization during rehab and developed C diff colitis and urinary retention. He had a Mendoza catheter placed at that time and was also treated for UTI. Following discharge from the hospital, he has been treated for UTI at least twice. He was seen by Dr. Hewitt at one point. The recurrent UTIs have caused him problem again and his called my office last week and requested lab work for possible UTI. A urinalysis and culture were ordered. However, they encountered some difficulties with the lab and over the weekend they did get his urinalysis and culture done. However, patient got sick over the weekend and was brought to emergency room last night with altered mentation. He was found to have acute renal failure with dehydration and is admitted now. Nephrology consultation was requested and patient is seen in the emergency room this afternoon. PAST MEDICAL AND SURGICAL HISTORY: Significant for: 1. History of longstanding diabetes. 2. Hypertension. 3. Coronary artery disease. 4. Chronic kidney disease, stage III. 5. Multiple episodes of acute renal failure. 6. Gout. 7. Obstructive sleep apnea. 8. History of C diff colitis. 9. Recurrent UTI. 10. History of seizures. 11. Status post frontal lobe resection for subacute infarction, which was felt to be a mass prior to surgery. 12. History of hyperparathyroidism. 13. History of anemia with chronic gastrointestinal (GI) blood loss and requiring transfusions. Past surgical history is significant for multiple upper and lower endoscopies, left carotid endarterectomy, right frontal lobe surgery, and bilateral cataract surgery. MEDICATIONS: His home medications include: - aspirin 81 mg daily - calcitriol 0.25 mcg daily - Carvedilol 25 mg twice a day - Uloric 80 mg 1-1/2 tablet daily - folic acid 1 mg daily - gemfibrozil 600 mg twice a day - hydralazine 50 mg three times a day - insulin 12 units in a.m. - Dilantin 100 mg 3 tablets daily - Rozerem 8 mg at bedtime - Flomax 0.4 mg at bedtime - torsemide 20 mg twice a day - He also uses prednisone as needed for acute gout. PERSONAL AND SOCIAL HISTORY: Patient is and lives with his . He does not smoke and has quit drinking. There is no history of drug use. FAMILY HISTORY: For end-stage renal disease. REVIEW OF SYSTEMS: Patient has significant altered mentation and not able to provide information. His reports no fever or chills. There is no history of vomiting but he did have decreased oral intake for last couple of days. He kept taking his diuretic until yesterday. Ears, nose and throat are unremarkable. Cardiovascular system negative for dyspnea, chest pain or leg edema. Respiratory system negative for cough or hemoptysis. GI system is negative for vomiting or diarrhea. There is no history of rectal bleeding or black colored stools. Genitourinary () system is significant for recurrent UTIs. Musculoskeletal system is significant for history of recurrent gout. Psychosocial system negative for depression or anxiety. Neurological system is significant for history of seizure and stroke. He had right frontal lobe lobectomy. Hematological system is significant for anemia of chronic kidney disease. He also has history of GI blood loss requiring multiple transfusions. Skin is negative for rash or ulcers. PHYSICAL EXAMINATION: Temperature 98.3 degrees Fahrenheit, heart rate 80 per minute and respiratory rate 18 per minute. Blood pressure 148/68 mmHg and oxygen saturation 98% on room air. Head is atraumatic. Neck is supple and neck veins are flat. His oral mucosa is dry. Heart sounds are regular, and lungs clear to auscultation. Abdomen soft and nontender and without palpable organomegaly. There is no distended urinary bladder palpable. Extremities have no cyanosis or clubbing. Skin is dry and without any rash or ulcers. Neurologically, he is lethargic but arousable. He was able to recognize me. LABORATORY DATA: Yesterday's labs show WBC count 12.1, hemoglobin 8.6 and hematocrit 26.7. Today his WBC count is 9.7, hemoglobin 7.9 and hematocrit 24.5. Sodium today 140, potassium 4.1, CO2 15, BUN 70 and creatinine 3.40. Total protein 7.0 and albumin 2.9. Yesterday his TSH level was 1.72. Urinalysis showed too numerous to count WBCs and 3+ bacteria. PROBLEMS: 1. Acute renal failure superimposed on chronic kidney disease. Mostly this is prerenal due to dehydration caused by decreased oral intake and continued use of diuretic. Patient is being hydrated with IV fluid and I would recommend aggressive IV fluid hydration. 2. Metabolic acidosis. Mostly this is related to acute renal failure. His does not report any diarrhea, though he does have history of C diff colitis a few months ago. We will switch his IV fluid to sodium bicarbonate drip with half-normal saline and 75 mEq sodium bicarbonate in each liter to run at 100 mL/h. 3. Recurrent urinary tract infection. Patient has been seen by infectious disease in the past and has been treated multiple times for urinary tract infection. He had a renal and bladder ultrasound done today, which did show some debris in his bladder. I would strongly recommend urology to see him for a cystoscopy and possible evacuation of the debris from his bladder, which is most likely cause for recurrent urinary tract infection. 4. Anemia. Patient does have history of recurrent blood loss anemia requiring transfusions. He is likely to require transfusion again. I would suggest to go ahead and transfuse him at least 2 units of packed red blood cells (RBCs). Thank you for involving me in the care of Mr. Isaac. I will follow him along with you.
[2018-10-12] MEDS: ASPIRIN 81 MG ENTERIC TAB PO SCH (09:19)
[2018-10-12] MEDS: FOLIC ACID 1 MG TAB PO SCH (09:19)
[2018-10-12] MEDS: SODIUM BICARBONATE 75 MEQ in NS 0.45% 1,000 ML IV SCH (09:19)
[2018-10-12] MEDS: LACTOBACILLUS ACIDOPHILUS CAP (BACID) PO SCH ×4 (09:20→20:42)
[2018-10-12] MEDS: HumaLOG INSULIN (NovoLOG) PER UNIT SC SCH ×4 (09:24→21:00)
[2018-10-12] MEDS: SODIUM BICARBONATE 100 MEQ in D5W 1,000 ML IV SCH (13:55)
[2018-10-12] MEDS ORDERED: ceFAZolin SOD 1 GM in D5W MINI-BAG PLUS 50 ML IV SCH (17:00)
[2018-10-12] MEDS: ceFAZolin SOD 1 GM in D5W MINI-BAG PLUS 50 ML IV SCH (18:05)
--- NOTE | 2018-10-12 19:21 | IPNPDOC ---
Subjective Date Seen The patient was seen on 10/12/18. Subjective Chief Complaint/HPI Altered mentation, weakness Events since last encounter The patient remains confused. Did not answer questions other than answering his name. Per nurse, he did take some medications but not others. Has not eaten much by mouth. Additional history is limited given patient's confusion Objective Physical Examination General Exam: Positive: Other (lying in bed. No distress.) Eye Exam: Positive: PERRLA ENT Exam: Positive: Atraumatic, Mucous membr. moist/pink Chest Exam: Positive: Normal air movement; Negative: Rales, Rhonchi, Wheezing Heart Exam: Positive: Rate Normal, Normal S1, Normal S2 Abdomen Exam: Positive: Soft; Negative: Tenderness Extremity Exam: Negative: Tenderness, Swelling Neuro Exam: Positive: Other (awake, alert, oriented to self. Seems to move all 4 extremities. Did not follow commands) Assessment /Plan Assessment Acute metabolic encephalopathy secondary to recurrent UTI: -Urine cultures pending -Blood cultures negative -Continue IV Rocephin -Patient had previous Escherichia coli with bacteremia -Also has previous history of C. difficilemonitor for any diarrhea with antibiotic use -Ultrasound bladder showed proteinaceous debrisdiscussed with ID Dr Hewitt - recommends consulting urology to see if patient could have cystoscopy done in the near future once the infection improves, to further evaluate this "debris" -Plan will be to consult urology tomorrow for the same. Acute kidney injury on chronic kidney disease stage III: -Likely secondary to poor oral intake in addition to being on torsemide -Continue IV fluids -Holding torsemide -Baseline creatinine around 1.7 -Renal ultrasound no hydronephrosis and no obstructive uropathy Chronic diastolic congestive heart failure/HFpEF: -2-D echocardiogram pending -Monitor for fluid overload with IV hydration History of C. 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: -Continue Dilantin for seizure prophylaxis -Head CT did not show acute findings as noted above Diabetes mellitus 2 with long-term insulin use: -Continue sliding scale -Holding basal insulin until oral intake is better Hypertension: -Patient has been refusing oral medications at times - ordered his usual home carvedilol and hydralazine by mouth -Ct IV hydralazine prn as well Left carotid artery stenosis status post stenting: -Continue aspirin DVT prophylaxis: -SCDs and teds Plan/VTE VTE Prophylaxis Ordered?: Yes VS, I&O, 24H, Fishbone Vital Signs/I&O Vital Signs Date Time Temp Pulse Resp B/P (MAP) Pulse Ox O2 Delivery O2 Flow Rate FiO2 10/12/18 18:05 192/82 10/12/18 16:00 96.5 82 19 100 10/11/18 17:00 Room Air I&O- Last 24 Hours up to 6 AM 10/12/18 06:00 Intake Total 250 ml Output Total 0 ml Balance 250 ml Laboratory Data 24H LABS Laboratory Tests 2 10/11/18 20:25: Bedside Glucose (Misc Panel) 134H 10/12/18 05:24: Nucleated Red Blood Cells % (auto) 0.0, Anion Gap 13, Glomerular Filtration Rate 24.4L, Blood Urea Nitrogen 66H, Creatinine 2.78H, Sodium Level 144, Potassium Level 4.0, Chloride Level 117H, Carbon Dioxide Level 14L, Calcium Level 8.4L, Phosphorus Level 3.9, Magnesium Level 2.0 10/12/18 11:59: Bedside Glucose (Misc Panel) 172H 10/12/18 17:26: Bedside Glucose (Misc Panel) 186H CBC/BMP Laboratory Tests 10/12/18 05:24 Red Blood Count 2.99 L, Mean Corpuscular Volume 89.3, Mean Corpuscular Hemoglobin 28.1, Mean Corpuscular Hemoglobin Concent 31.5 L, Red Cell Distribution Width 15.4 H, Calcium Level 8.4 L Microbiology Microbiology 10/10/18 Blood Culture - Preliminary, Resulted No growth after 24 hours . All specim... 10/10/18 Blood Culture - Preliminary, Resulted No growth after 24 hours . All specim... 10/10/18 Urine Culture, Received Pending VIJAY PALOMARES MD Oct 12, 2018 19:21
[2018-10-12] MEDS ORDERED: hydrALAZINE INJ 20 MG/ML VIAL IV PRN (20:30)
--- NOTE | 2018-10-12 20:40 | ECHO ---
DATE OF PROCEDURE: 10/12/2018 REFERRING PHYSICIAN: Dr. Adan Lopez INDICATION: Congestive heart failure. HEIGHT: 175 cm WEIGHT: 86 kg DIMENSIONS: IVS: 1.2 LV: 4.5 LVPW: 1.3 LA: 4.2 Aorta: 3.2 IVC: 1.7 Mitral E wave velocity: 74 A wave: 114 E prime septal: 5.1 E prime lateral: 6.4 FINDINGS: The study is of limited technical quality with difficult visualization. The patient is in sinus rhythm. Left ventricle is of normal size and systolic function with estimated ejection fraction (EF) probably around 60%, but the views were limited and subtle wall motion abnormalities could have been easily missed. Mild left ventricular hypertrophy is noted. Right ventricle appears normal. Left atrium is at least mildly enlarged. Right atrium was poorly visualized. Aortic valve was heavily sclerotic. There are dense calcifications, but mobility of leaflets is preserved. There are also degenerative abnormalities of mitral valve with mitral annular calcifications but again mobility of leaflets is intact. Tricuspid valve appears normal. Pulmonic valve was not well seen. No pericardial effusion is noted. Inferior vena cava is normal size and normally collapses with respiration indicative of likely normal central venous pressure. Aortic root is normal. Aortic arch and abdominal aorta were not well seen. Doppler interrogation of aortic valve reveals no significant stenosis or insufficiency. There is trace mitral insufficiency and no significant tricuspid insufficiency. Mitral inflow pattern and tissue Doppler imaging of mitral annulus revealed grade 1 diastolic dysfunction. CONCLUSIONS: 1. Study is of fair technical quality. 2. Normal left ventricular (LV) size with mild left ventricular hypertrophy (LVH) and probably normal LV systolic function, grade 1 diastolic dysfunction. 3. Degenerative abnormalities of aortic and mitral valves but without significant functional dysfunction. 4. Normal central venous pressure. 5. Unable to estimate pulmonary artery pressure. COMMENT: Subacute bacterial endocarditis (SBE) prophylaxis is not recommended. Overall study most consistent with hypertensive heart disease. Currently, indicative of normal central venous pressure and only grade 1 diastolic dysfunction, suggestive of good compensation of heart failure.
[2018-10-12] MEDS: PHENYTOIN ER 100 MG CAP PO SCH (20:42)
[2018-10-12] MEDS: CARVedilol 12.5 MG TAB PO SCH (20:43)
[2018-10-12] MEDS: **hydrALAZINE** 50 MG TAB PO SCH (21:00)
[2018-10-13 04:00] VITALS: BP 164/78
[2018-10-13] MEDS: ceFAZolin SOD 1 GM in D5W MINI-BAG PLUS 50 ML IV SCH ×2 (05:39→16:27)
[2018-10-13 05:55] LABS: HEMATOCRIT 24.6 % (42.0-52.0); HEMOGLOBIN 8.1 g/dl (13.5-17.5); MEAN CORPUSCULAR HGB CONC 32.9 g/dl (32.0-36.5); MEAN CORPUSCULAR VOLUME 85.1 fl (80.0-96.0); PLATELET COUNT, AUTOMATED 386 10^3/uL (150-450); RED BLOOD COUNT 2.89 10^6/uL (4.30-6.10); WHITE BLOOD COUNT 8.4 10^3/uL (4.0-10.0)
[2018-10-13 06:16] LABS: CALCIUM LEVEL 8.3 MG/DL (8.8-10.2); CREATININE FOR GFR 2.27 MG/DL (0.70-1.30); GLOMERULAR FILTRATION RATE 30.8 (>49); POTASSIUM SERUM 3.2 MEQ/L (3.5-5.1)
[2018-10-13 08:00] VITALS: BP 160/92
--- NOTE | 2018-10-13 08:13 | IPNPDOC ---
Text Note Date of Service The patient was seen on 10/13/18. NOTE Subjective: Patient seen and examined at bedside. No acute overnight events reported. Patient has no medical complaints this morning. Questionable historian. Objective: General: NAD, lying comfortably in bed, disheveled HEENT: NC/AT, poor dentition Lungs: CTA B/L Heart: +S1S2, RRR Abd: soft, obese, NT, +BS A/P: 68 yo male for confusion, found to have UTI #Acute metabolic encephalopathy secondary to recurrent UTI: -Urine cultures noted - E.Coli -Blood cultures negative -Continue IV Cefazolin -Patient had previous Escherichia coli with bacteremia -Also has previous history of C. difficilemonitor for any diarrhea with antibiotic use -Ultrasound bladder showed proteinaceous debrisdiscussed with ID Dr Hewitt - recommends consulting urology to see if patient could have cystoscopy done in the near future once the infection improves, to further evaluate this "debris" #Bladder debris - as noted on ultrasound - d/w urology - consultation pending - assistance appreciated #RUSTY/CKDIII -Likely secondary to poor oral intake in addition to being on torsemide -Continue IV fluids -Holding torsemide -Baseline creatinine around 1.7 -Renal ultrasound no hydronephrosis and no obstructive uropathy #Chronic diastolic congestive heart failure/HFpEF: -2-D echocardiogram pending -Monitor for fluid overload with IV hydration #History of C. 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: -Continue Dilantin for seizure prophylaxis -Head CT did not show acute findings as noted above #Diabetes mellitus 2 with long-term insulin use: -Continue sliding scale -Holding basal insulin until oral intake is better #Hypertension: -Patient has been refusing oral medications at times - ordered his usual home carvedilol and hydralazine by mouth -Ct IV hydralazine prn as well #Left carotid artery stenosis status post stenting: -Continue aspirin #DVT prophylaxis: -SCDs and teds Dispo: IV antibiotics, pending urology consultation for possible cysto, ID follow up VS,Fishbone, I+O VS, Fishbone, I+O Laboratory Tests 10/13/18 05:30 Red Blood Count 2.89 L, Mean Corpuscular Volume 85.1, Mean Corpuscular Hemoglobin 28.0, Mean Corpuscular Hemoglobin Concent 32.9, Red Cell Distribution Width 15.2 H, Calcium Level 8.3 L Vital Signs Date Time Temp Pulse Resp B/P (MAP) Pulse Ox O2 Delivery O2 Flow Rate FiO2 10/13/18 04:00 98.4 87 24 164/78 (106) 98 10/11/18 17:00 Room Air I&O- Last 24 Hours up to 6 AM 10/13/18 06:00 Intake Total 3210 ml Output Total 0 ml Balance 3210 ml ERLIN WALLACE MD Oct 13, 2018 08:13
[2018-10-13] MEDS: HumaLOG INSULIN (NovoLOG) PER UNIT SC SCH ×4 (08:45→20:51)
[2018-10-13] MEDS: **hydrALAZINE** 50 MG TAB PO SCH ×3 (08:46→20:47)
[2018-10-13] MEDS: LACTOBACILLUS ACIDOPHILUS CAP (BACID) PO SCH ×4 (08:46→20:46)
[2018-10-13] MEDS: ASPIRIN 81 MG ENTERIC TAB PO SCH (08:46)
[2018-10-13] MEDS: FOLIC ACID 1 MG TAB PO SCH (08:46)
[2018-10-13] MEDS: CARVedilol 12.5 MG TAB PO SCH ×2 (08:47→20:46)
[2018-10-13 08:49] LABS: MAGNESIUM LEVEL 1.8 MG/DL (1.8-2.4)
[2018-10-13] MEDS ORDERED: POTASSIUM CHLORIDE 10 MEQ SR TABLET PO ONE (09:00)
--- NOTE | 2018-10-13 10:09 | IPN ---
DATE OF SERVICE: 10/12/2018 SUBJECTIVE: The patient seen and examined this morning at the bedside. He remains confused. He is able to tell me his name and his 's name. Otherwise he does not respond to questions appropriately and he had some difficulty cooperating with the physical exam as well. Vital Signs: Temperature 97.9, pulse 85, respiratory rate 24, blood pressure 180/78, saturating 98% on room air. General: The patient is seen sitting upright in bed. Appears calm, but confused, in no acute distress. Makes eye contact. Neck veins are not elevated. His tongue and oral mucosa are dry. His heart sounds are regular. His lungs are clear to auscultation bilaterally. The abdomen is soft. He does not grimace to palpation. There are bowel sounds. His bladder is not palpable. There is no incontinence noted to his bed sheets. Extremities have no cyanosis, clubbing or edema. Neurologic: He is slow to respond. He is able to tell me his name and his 's name, otherwise does not respond to simple questions appropriately nor does he reliably follow commands. LABS: White count 8.9, hemoglobin 8.4, and platelets 368. Sodium 144, potassium 4.0, bicarbonate 14, BUN 66, creatinine 2.7. INPATIENT MEDICATIONS: I changed the patient's IV fluid to D5W with 100 mEq of sodium bicarbonate to run at 100 mL/hr. The primary team has started him on Cefazolin 1 gram every 12 hours. His remainder of medications are unchanged from prior. PROBLEMS: 1. Acute kidney injury (RUSTY) superimposed on chronic kidney disease (CKD) Stage 3. RUSTY is felt to be secondary to poor oral intake, dehydration and continued use of diuretic. His renal function is improving with the IV fluids and it is not yet back to baseline. I would continue to hold his home diuretic torsemide and as he remains altered with poor oral intake we will continue him on IV fluid at this time. 2. Metabolic acidosis related to renal failure. His bicarbonate level has decreased further down to 14 and I am increasing the amount of bicarbonate in his fluids to 100 mEq to run at 100 mL/hr. 3. Recurrent urinary tract infections. The patient has had recurrent issues with the same and has seen infectious diseases in the past. I do note some debris in the bladder on his recent ultrasound and I recommend urology to evaluate him for cystoscopy and possible evacuation of the debris from the bladder which may be colonized and a source for recurrent urinary tract infection (UTI). He is presently on Cefazolin as per the primary team. His white count is improving, but he still remains altered. 4. History of diastolic congestive heart failure. Echocardiogram is noted. He has normal central venous pressure at this time. His diuretics are on hold. Continue with IV fluids at present. We will keep a close eye on his volume and respiratory status. 5. Anemia. Related to iron deficiency and chronic renal failure. Hemoglobin is suboptimal at 8.4 and I recommend transfusion of 1 unit of packed red blood cells.
--- NOTE | 2018-10-13 11:06 | CR ---
DATE OF CONSULTATION: 10/12/2018 I was asked to consult by hospitalist for evaluation and was found Escherichia (E) coli urinary tract infection. HISTORY OF PRESENT ILLNESS: Mr. Isaac is a 68-year-old gentleman known from previous hospitalization at acute rehabilitation. The patient has a history of chronic kidney disease and recurrent urinary tract infection since he was hospitalized for a frontal lobe lesion dissection, which turned out to be an infarct. The patient was in rehabilitation in June and July. He had Clostridium (C) difficile on 07/10/2018, which was treated with vancomycin without improvement. He was then switched to daptomycin. He then developed on 07/14/2018 a fever with rhinovirus infection. On 07/18/2018, he had recurrent E-coli UTI treated with fosfomycin. In the setting of C diff he was given three doses of fosfomycin by 48 hours. Repeat urine cultures were positive on 07/20/2018, 07/30/2018 and 08/07/2018 he had E-coli UTI and bacteremia. The patient had a Mendoza catheter during that hospitalization that was removed. He had post void residual, which were done during this presentation, which was only 125 mL. He did not have any fevers or chills, but he was acutely confused, and therefore, his brought into the hospital. At baseline, after his stroke, the patient has been independent at home, cooking, walking without a walker, doing most of his own independently except for mild right-sided weakness. His primary care provider is Dr. Mayers. He has chronic kidney disease with his baseline creatinine of 1.7. PAST MEDICAL HISTORY: Longstanding diabetes, hypertension, coronary artery disease, chronic kidney disease stage III, creatinine usually 1.7, recurrent episodes of acute renal failure, gouty arthritis, obstructive sleep apnea, C difficile colitis 07/10/2018, recurrent UTI. The patient just finished a 3-week treatment with Macrobid on 10/01/2018. 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 Patient required iron infusion on 09/03/2018. PAST SURGICAL HISTORY: Upper and lower endoscopies, left carotid endarterectomy, right frontal lobe surgery, bilateral cataract surgery. MEDICATIONS: - aspirin 81 mg daily - calcitriol 0.25 mcg daily - Coreg 25 mg twice a day - Uloric 120 mg daily - folic acid 1 mg daily - gemfibrozil 600 mg twice a day - hydralazine 50 mg three times a day - insulin 12 units in the morning - Dilantin 100 mg 3 tablets daily - Rozerem 8 mg at bedtime - Flomax 0.4 mg at bedtime - torsemide 20 mg twice a day (which he has been on for the past 6 weeks) - prednisone as needed for gout flare-up - Rocephin 1 gram intravenously every 24 hours PERSONAL HISTORY: He is . He lives with his . He does not smoke or drink. FAMILY HISTORY: Positive for end-stage renal disease. REVIEW OF SYSTEMS: The patient is confused. He is not able to give me much of a history, but he has been incontinent in the hospital, but usually at home he is not. He has no nausea, vomiting or recent diarrhea. Although, he had one episode of diarrhea 3 days ago at home. He has slight weakness on the right side. No headache. No neck stiffness. No rashes. No cough or shortness of breath. On physical exam, he is a pleasant gentleman, in no acute distress. Vital signs: Temperature is 97.9, pulse 85, respirations 24, blood pressure 180/78, oxygen saturation 98% on room air. He has been afebrile throughout this admission. ALLERGIES: NO KNOWN DRUG ALLERGIES. LABORATORY DATA: White count on 10/10/2018 was 12.1, today 8.9, hemoglobin 8.4, hematocrit 26.7, platelets 368. Sodium 144, potassium 4, chloride 117, bicarbonate 14, BUN 66, creatinine 2.78, glucose 117, calcium 8.4, phosphorus 3.9, magnesium 2. His creatinine was up to 3.59 on admission. 10/09/2018 urine culture has E-coli. 10/10/2018 urine culture has lactose order entry clerk, which usually remains in E-coli. Two sets of blood cultures were done and were negative. Renal ultrasound showed proteinaceous debris or cellular material in the lumen of the urinary bladder. No hydronephrosis. Otherwise, negative. Chest x-ray done on 10/10/2018 shows a 9 mm nodular opacity left upper lobe region. Consider CT chest. Head CT done for confusion shows no acute findings, parenchymal volume loss, white matter changes demonstrated in the subcortical and periventricular white matter consistent with small vessel white matter gliosis. On physical exam, heart normal S1 and S2. Systolic ejection murmur 2/6 best heard at the left upper sternal border. Lungs are clear. No wheezes or rhonchi. Abdomen soft. nontender. No visceromegaly. Back: No costovertebral angle (CVA) or lumbosacral tenderness. Extremities: No clubbing, cyanosis or edema. Neurologic exam: Patient is alert, oriented. He cannot recall my name but he knows he is in the hospital. He closes his eyes and sometimes does not answer appropriately, but at other times he does. He is improved compared to admission. Neck is not stiff. No adenopathy. IMPRESSION: This is a 68-year-old gentleman who has had recurrence of a urinary tract infection since 07/18/2018 with persistent of the same pathogen always E-coli pansensitive. The patient was treated on two different occasions between June and July. He was treated as an outpatient with Macrobid for [address] Mayers. As soon as antibiotics were discontinued, the patient was admitted in acute kidney injury, confusion and persistent urinary tract infection. There is CT evidence of some debris. The patient needs cystoscopy to rule out any other possible reasons for these recurrent UTIs other than urinary retention as he has done post void residue no documented that. Leukocyte esterase in the urinalysis was +3 and many white cells, 18 red cells. PLAN: I have discussed the case with urology. They will see the patient tomorrow. We would recommend cystoscopy as there might be a stone causing these recurrent symptoms and persistence of the same E-coli. The patient does not have clinical evidence of urinary retention. He had a post void residue of 125 mL in the ER but will obtain another post void residue. De-escalate therapy from Rocephin to cefazolin 1 gram every 12 hours, which would be renally dosed, to decrease the risk of C diff. As far as history of C diff, he will continue with probiotic 1 tablet by mouth with meals. The patient could be switched to oral Keflex when clinically stable after 3-4 days of IV antibiotic and mental status has improved. Consult urology for a cystoscopy in the morning. [facility]
[2018-10-13 12:00] VITALS: BP 160/60
[2018-10-13 16:00] VITALS: BP 156/80
[2018-10-13] MEDS: predniSONE 20 MG TAB PO SCH (18:18)
[2018-10-13] MEDS: SODIUM BICARBONATE 100 MEQ in D5W 1,000 ML IV SCH ×3 (18:19)
[2018-10-13 20:00] VITALS: BP 174/86
[2018-10-13] MEDS: PHENYTOIN ER 100 MG CAP PO SCH (20:46)
[2018-10-13] MEDS: TAMSULOSIN 0.4 MG CAP PO SCH (20:47)
[2018-10-14] VITALS: BP 154/67
[2018-10-14 04:00] VITALS: BP 171/90
[2018-10-14] MEDS: ceFAZolin SOD 1 GM in D5W MINI-BAG PLUS 50 ML IV SCH ×2 (05:00→17:41)
[2018-10-14 05:37] LABS: HEMATOCRIT 22.6 % (42.0-52.0); HEMOGLOBIN 7.3 g/dl (13.5-17.5); MEAN CORPUSCULAR HEMOGLOBIN 27.8 pg (27.0-33.0); MEAN CORPUSCULAR HGB CONC 32.3 g/dl (32.0-36.5); MEAN CORPUSCULAR VOLUME 85.9 fl (80.0-96.0); PLATELET COUNT, AUTOMATED 315 10^3/uL (150-450); RED BLOOD COUNT 2.63 10^6/uL (4.30-6.10); WHITE BLOOD COUNT 7.6 10^3/uL (4.0-10.0)
[2018-10-14 06:04] LABS: CALCIUM LEVEL 8.2 MG/DL (8.8-10.2); CREATININE FOR GFR 1.99 MG/DL (0.70-1.30); GLOMERULAR FILTRATION RATE 35.9 (>49); POTASSIUM SERUM 3.5 MEQ/L (3.5-5.1)
--- NOTE | 2018-10-14 07:37 | IPNPDOC ---
Text Note Date of Service The patient was seen on 10/14/18. NOTE Subjective: Patient seen and examined at bedside. No acute overnight events reported. Patient has no medical complaints this morning. Questionable historian. Objective: General: NAD, lying comfortably in bed, disheveled HEENT: NC/AT, poor dentition Lungs: CTA B/L Heart: +S1S2, RRR Abd: soft, obese, NT, +BS A/P: 68 yo male for confusion, found to have UTI #Acute metabolic encephalopathy secondary to recurrent UTI: -Urine cultures noted - E.Coli -Blood cultures negative -Continue IV Cefazolin day #3 - as per ID recs, transition to PO in 3-4 days and improvement in mental status -Patient had previous Escherichia coli with bacteremia -Also has previous history of C. difficilemonitor for any diarrhea with antibiotic use -Ultrasound bladder showed proteinaceous debrisdiscussed with ID Dr Hewitt - recommends consulting urology to see if patient could have cystoscopy done in the near future once the infection improves, to further evaluate this "debris" #Bladder debris - as noted on ultrasound - d/w urology - consultation pending - assistance appreciated #anemia - consent obtained over telephone from - d/w nephrology today regarding transfusion PRBC - states he does have a transfusion history #RUSTY/CKDIII -Likely secondary to poor oral intake in addition to being on torsemide -Continue IV fluids -Holding torsemide -Baseline creatinine around 1.7 -Renal ultrasound no hydronephrosis and no obstructive uropathy #Chronic diastolic congestive heart failure/HFpEF: -2-D echocardiogram pending -Monitor for fluid overload with IV hydration #History of C. 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: -Continue Dilantin for seizure prophylaxis -Head CT did not show acute findings as noted above #Diabetes mellitus 2 with long-term insulin use: -Continue sliding scale -Holding basal insulin until oral intake is better #Hypertension: -Patient has been refusing oral medications at times - ordered his usual home carvedilol and hydralazine by mouth -Ct IV hydralazine prn as well #Left carotid artery stenosis status post stenting: -Continue aspirin #DVT prophylaxis: -SCDs and teds Dispo: IV antibiotics, pending urology consultation for possible cysto, ID follow up; could consider transition to PO Abx tomorrow if mentation has returned to baseline VS,Fishbone, I+O VS, Fishbone, I+O Laboratory Tests 10/14/18 05:00 Red Blood Count 2.63 L, Mean Corpuscular Volume 85.9, Mean Corpuscular Hemoglobi n 27.8, Mean Corpuscular Hemoglobin Concent 32.3, Red Cell Distribution Width 15.3 H, Calcium Level 8.2 L Vital Signs Date Time Temp Pulse Resp B/P (MAP) Pulse Ox O2 Delivery O2 Flow Rate FiO2 10/14/18 04:00 97.8 85 18 171/90 (117) 99 10/11/18 17:00 Room Air I&O- Last 24 Hours up to 6 AM 10/14/18 06:00 Intake Total 3370 ml Output Total 2100 ml Balance 1270 ml ERLIN WALLACE MD Oct 14, 2018 07:37
[2018-10-14 08:00] VITALS: BP 140/50
[2018-10-14] MEDS: LACTOBACILLUS ACIDOPHILUS CAP (BACID) PO SCH ×4 (08:21→21:56)
[2018-10-14] MEDS: HumaLOG INSULIN (NovoLOG) PER UNIT SC SCH ×4 (08:21→21:00)
[2018-10-14] MEDS: predniSONE 20 MG TAB PO SCH (08:22)
[2018-10-14] MEDS: ASPIRIN 81 MG ENTERIC TAB PO SCH (08:22)
[2018-10-14] MEDS: FOLIC ACID 1 MG TAB PO SCH (08:22)
[2018-10-14] MEDS: **hydrALAZINE** 50 MG TAB PO SCH ×3 (08:23→21:57)
[2018-10-14] MEDS: CARVedilol 12.5 MG TAB PO SCH ×2 (08:23→21:57)
--- NOTE | 2018-10-14 10:31 | CR ---
DATE OF CONSULTATION: 10/13/2018 The patient was admitted with a urinary tract infection and a CT scan was done which showed some echoes in the bladder for which reason the urological consultation was asked. Mr. Isaac is a 68-year-old male who is slightly confused and is not able to talk in a very coherent fashion, however he has been having difficulty with his urination and it seems from his description that he had an overflow incontinence because he had been dribbling urine all the time in the bladder with no control. This specifically got more exacerbated since his last craniotomy and he has had documentation of multiple urinary tract infections at that time, which are all secondary to large residual that he has been holding and getting urinary tract infections. He currently denies any burning micturition and dysuria, but given his mental status it is difficult to believe that. PAST MEDICAL HISTORY: Significant for: Diabetes. Hypertension. Coronary artery disease (CAD). Chronic kidney disease. Sleep apnea. Recurrent urinary tract infections. Craniotomy. Left carotid endarterectomy. MEDICATIONS: Please see attached list of medications. PHYSICAL EXAMINATION: He is confused, but responsive, awake and oriented to time and space. Neck is soft and supple, nontender. Chest is normal. Abdomen is soft, nondistended, nontender. Bladder is palpable in the suprapubic area with mild tenderness. No CVA tenderness. Penis is circumcised with no lesions. Both testicles are descended, are atrophic and nontender. Rectal exam shows 40-50 gram prostate with no nodules or induration. He moves all four extremities. A bladder scan was done which only showed 18 mL of urine in the bladder; however, on the clinical exam findings, a Mendoza catheter was placed which drained 550 mL of very cloudy urine suggestive of all the infection in the bladder, which also explains all the debris which has been floating in the bladder because of the chronic retention and infection. PLAN: We will follow the cultures and treat the urinary tract infection. He needs some sales assistant entertainment and media mechanism of his bladder outlet drainage. Mendoza catheter can be used as a short term measure, but if he is not able to empty his bladder he will probably be better off with a suprapubic cystostomy tube. At the time suprapubic cystostomy tube, a cystoscopy can also be performed.
[2018-10-14 12:00] VITALS: BP 160/84
--- NOTE | 2018-10-14 14:28 | IPN ---
DATE OF SERVICE: 10/13/2018 SUBJECTIVE: The patient seen and examined this morning at the bedside. He remains confused and is only able to tell me his name and his 's name and is unable to tell me where he is, what year it is, and is unable to tell me his birthday and has trouble following simple commands. He is not at his usual mentation and remains altered. Vital Signs: Temperature 98.6, pulse 85, respiratory rate 18, blood pressure 174/876, saturating 99% on room air. Intake yesterday was 2.8 liters, weight on the bed scale today is 86 kg. There is a post void residual of 550 mL today. General: The patient is seen sitting upright in bed, head of bed elevated, propped up on pillows, appears calm, but is confused, oriented times one, but in no acute distress. Makes poor eye contact. Tongue is dry. Neck veins are not elevated. Heart sounds are regular. Lungs are clear to auscultation bilaterally. The abdomen is soft. There is no tenderness to palpation. There are bowel sounds. The lower extremities are negative for cyanosis, clubbing or edema. LABS: Sodium 144, potassium 3.2, bicarbonate 20, BUN 49, creatinine 2.2, magnesium 1.8, hemoglobin 8.1. INPATIENT MEDICATIONS: I reduced his sodium bicarbonate drip to 60 mL/hr. He continues on Cefazolin. He received a dose of potassium chloride 40 mEq by mouth times one. He is noted to be started on Flomax and prednisone 40 mg by mouth daily. PROBLEMS: 1. Recurrent E. Coli urinary tract infection with ultrasound evidence of some debris in the bladder and concern for bladder calculus causing the recurrent infection. The patient is pending urologic evaluation and cystoscopy. He has been evaluated by infectious diseases. He continues on Cefazolin. He remains with metabolic encephalopathy. 2. Acute kidney injury (RUSTY) superimposed on chronic kidney disease (CKD) Stage 3 with baseline creatinine of around 1.7. His renal function is improving. I have cut down the rate of his IV fluids. His home diuretic remains on hold as he is altered. We will keep a close eye on his volume status. 3. Metabolic acidosis related to renal failure. It is improving with bicarbonate containing fluids and I have cut the rate of the fluids down to 60 mL/hr. 4. History of diastolic congestive heart failure. Diuretics presently on hold. Iv fluid rate has been decreased. Will keep a close eye on the volume and respiratory status. Presently there is no hypervolemia. 5. Anemia related to iron deficiency and chronic renal failure. Hemoglobin is suboptimal but stable. I would plan to transfuse him for hemoglobin less than 8. 6. Hypokalemia. He received oral supplementation and the hypokalemia is due to correction of the acidosis.
[2018-10-14] MEDS ORDERED: SLF 3 ML SYR IV PRN (14:30)
[2018-10-14 16:00] VITALS: BP 150/80
[2018-10-14 20:00] VITALS: BP 161/71
--- NOTE | 2018-10-14 21:17 | IPN ---
DATE: 10/14/2018 The patient seems to be better this morning. He is afebrile with stable vital signs. Abdomen is soft, nondistended, nontender. Urine is still cloudy His laboratories this morning have improved. Since yesterday, his white cell count is down to 7.6 with a hematocrit of 22 and his creatinine has dropped from 2.27 to 1.99. His urine shows Escherichia (E) coli, sensitive to cefazolin, for which he is being treated with cefazolin. IMPRESSION: Patient with urinary tract infection (UTI), which is probably secondary to chronic retention, also explaining the debris in his bladder. PLAN: Continue with antibiotics and the Mendoza catheter. Once the infection has been treated, he should be referred to urology clinic for possible cystoscopy and suprapubic cystostomy tube placement. Urology will sign off. ABRAND
[2018-10-14] MEDS: SLF 3 ML SYR IV SCH (21:55)
[2018-10-14] MEDS: PHENYTOIN ER 100 MG CAP PO SCH (21:56)
[2018-10-14] MEDS: TAMSULOSIN 0.4 MG CAP PO SCH (21:57)
[2018-10-15] VITALS: BP 146/71
[2018-10-15 04:00] VITALS: BP 154/71
[2018-10-15] MEDS: ceFAZolin SOD 1 GM in D5W MINI-BAG PLUS 50 ML IV SCH (04:26)
[2018-10-15] MEDS: SLF 3 ML SYR IV SCH ×3 (04:26→22:00)
[2018-10-15 05:26] LABS: HEMATOCRIT 23.6 % (42.0-52.0); HEMOGLOBIN 7.7 g/dl (13.5-17.5); MEAN CORPUSCULAR HEMOGLOBIN 28.1 pg (27.0-33.0); MEAN CORPUSCULAR HGB CONC 32.6 g/dl (32.0-36.5); MEAN CORPUSCULAR VOLUME 86.1 fl (80.0-96.0); PLATELET COUNT, AUTOMATED 374 10^3/uL (150-450); RED BLOOD COUNT 2.74 10^6/uL (4.30-6.10); WHITE BLOOD COUNT 8.2 10^3/uL (4.0-10.0)
[2018-10-15 05:55] LABS: CALCIUM LEVEL 7.7 MG/DL (8.8-10.2); CREATININE FOR GFR 1.86 MG/DL (0.70-1.30); GLOMERULAR FILTRATION RATE 38.8 (>49)
[2018-10-15] MEDS ORDERED: CALCIUM CARBONATE 500 MG CHEW U/D PO ONE (06:15)
[2018-10-15] MEDS ORDERED: POTASSIUM CHLORIDE 10 MEQ SR TABLET PO ONE (06:15)
[2018-10-15] MEDS ORDERED: KCL 10MEQ/100ML SWI (KRUN) 10 MEQ in APPROPRIATE DILUENT 1 EA IV ONE (06:15)
[2018-10-15 08:00] VITALS: BP 174/72
[2018-10-15] MEDS: HumaLOG INSULIN (NovoLOG) PER UNIT SC SCH ×4 (08:23→21:00)
[2018-10-15] MEDS: FOLIC ACID 1 MG TAB PO SCH (08:24)
[2018-10-15] MEDS: **hydrALAZINE** 50 MG TAB PO SCH ×3 (08:24→20:45)
[2018-10-15] MEDS: CARVedilol 12.5 MG TAB PO SCH ×2 (08:24→20:46)
[2018-10-15] MEDS: predniSONE 20 MG TAB PO SCH (08:24)
[2018-10-15] MEDS: LACTOBACILLUS ACIDOPHILUS CAP (BACID) PO SCH ×4 (08:24→20:45)
[2018-10-15] MEDS: ASPIRIN 81 MG ENTERIC TAB PO SCH (08:24)
--- NOTE | 2018-10-15 10:36 | IPNPDOC ---
Subjective Date Seen The patient was seen on 10/15/18. Subjective Chief Complaint/HPI Patient seen and examined at bedside. Reports that he is feeling better this morning. States that he declined a blood transfusion yesterday afternoon as he was confused and thought he didn't need it. He denies any acute complaints of lightheadedness, dizziness, chest pain, or palpitations at this time. He is more amenable to receiving a transfusion this morning. Objective Physical Examination General Exam: Positive: Alert, Cooperative, No Acute Distress ENT Exam: Positive: Atraumatic, Mucous membr. moist/pink Chest Exam: Positive: Normal air movement; Negative: Rales, Rhonchi, Wheezing Heart Exam: Positive: Rate Normal, Normal S1, Normal S2 Abdomen Exam: Positive: Soft; Negative: Tenderness Extremity Exam: Negative: Tenderness, Swelling Neuro Exam: Positive: Other (awake, alert, oriented to self. Seems to move all 4 extremities. Did not follow commands) A-FIB/CHADSVASC A-FIB History Current/History of A-Fib/PAF?: No Assessment /Plan Plan/VTE VTE Prophylaxis Ordered?: Yes Plan Acute metabolic encephalopathy secondary to recurrent UTI Urine cultures noted - E.Coli Blood cultures negative ID input appreciated we will transition the patient to PO Keflex Bladder debris in the setting of Recurrent UTI's as noted on ultrasound Urology input noted--Bladder debris likely 2/2 chronic urinary retention. Continue riggins catheterization and antibiotics. Patient will need to follow up as an outpatient with Urology for cystoscopy and further evaluation for suprapubic cystostomy tube placement as per Urology. Acute Kidney Injury Superimposed on CKD Stage III 2/2 UTI Renal function has returned back to baseline Acute on Chronic Normocytic Anemia likely 2/2 Dilutional Effect from IVF, underlying AOCD Patient refused transfusion yesterday, as he was confused. However he is more awake/alert today and amenable to transfusion. 1 Unit ordered No overt bleeding noted Chronic diastolic congestive heart failure/HFpEF: 2D echocardiogram notable for Grade 1 DD History of C. 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 VS, I&O, 24H, Leonelbonminh Vital Signs/I&O Vital Signs Date Time Temp Pulse Resp B/P (MAP) Pulse Ox O2 Delivery O2 Flow Rate FiO2 10/15/18 08:24 174/72 10/15/18 08:24 74 10/15/18 08:00 98.1 18 99 10/11/18 17:00 Room Air I&O- Last 24 Hours up to 6 AM 10/15/18 06:00 Intake Total 1700 ml Output Total 1050 ml Balance 650 ml Laboratory Data 24H LABS Laboratory Tests 2 10/14/18 12:24: Bedside Glucose (Misc Panel) 134H 10/14/18 16:55: Bedside Glucose (Misc Panel) 239H 10/14/18 20:36: Bedside Glucose (Misc Panel) 213H 10/15/18 04:43: Nucleated Red Blood Cells % (auto) 0.0, Anion Gap 8, Glomerular Filtration Rate 38.8L, Blood Urea Nitrogen 49H, Creatinine 1.86H, Sodium Level 138, Potassium Level 3.0L, Chloride Level 105, Carbon Dioxide Level 25, Calcium Level 7.7L CBC/BMP Laboratory Tests 10/15/18 04:43 Red Blood Count 2.74 L, Mean Corpuscular Volume 86.1, Mean Corpuscular Hemoglobin 28.1, Mean Corpuscular Hemoglobin Concent 32.6, Red Cell Distribution Width 15.0 H, Calcium Level 7.7 L Microbiology Microbiology 10/10/18 Blood Culture - Preliminary, Resulted No Growth after 72 hours. All specime... 10/10/18 Blood Culture - Preliminary, Resulted No Growth after 72 hours. All specime... 10/10/18 Urine Culture - Final, Complete Escherichia Coli HAILEY MCKEON MD Oct 15, 2018 10:36
[2018-10-15 12:00] VITALS: BP 149/66
[2018-10-15 16:00] VITALS: BP 148/96
--- NOTE | 2018-10-15 18:54 | IPN ---
DATE: 10/15/2018 SUBJECTIVE: The patient was seen and examined this morning at the bedside. He is a lot more communicative and talkative. Unfortunately, he is also not in a good mood and not amendable to our conversation regarding further medical care. Just is preoccupied with wanting to go home. He is refusing the two units of blood that were ordered. VITAL SIGNS: Temperature 97.2, pulse 80, respiratory rate 18, blood pressure 161/71, saturating 99% on room air. Intake yesterday was 3.4 liters. Urine output yesterday was 1.1 liters. Urine output thus far today 1.5 liters. Weight in the bed scale today is 88.2 kg. GENERAL: The patient is seen in bed, appears older than stated age, depressed, more talkative today than he has been prior days. Not in a good mood. Mixed psychotic. Tongue is dry. Poor dentition. Jugular veins are not elevated. Heart sounds: S1, S2, regular rate and rhythm. Lungs are clear to auscultation bilaterally. The abdomen is soft and nontender. There are bowel sounds. GENITOURINARY (): Shows a Mendoza catheter in place. Extremities are negative for edema, clubbing or cyanosis. Good normal turgor and temperature. LABORATORY: White count 7.6, hemoglobin 7.3, platelets 315. Sodium 140, potassium 3.5, bicarbonate 23, BUN 42, creatinine 1.9. INPATIENT MEDICATIONS: His IV fluids are being stopped. His remainder of medications are unchanged from prior. PROBLEMS: 1. Acute kidney injury superimposed on chronic kidney disease (CKD) stage III based on creatinine of 1.7. Renal function is improving towards baseline. He is tolerating oral intake. I am discontinuing his IV fluids today as I would prefer that he gets packed red blood cells now instead. His home diuretic remains on hold. We will keep a close eye on his volume status. 2. Metabolic acidosis related to renal failure. It is resolved with bicarbonate containing fluids and I am discontinuing his fluids today. 3. History of diastolic congestive heart failure. Diuretics remain on hold. IV fluids are being discontinued. We will keep a close eye on his volume and respiratory status and we will resume diuretics when indicated. 4. Anemia related to iron deficiency and chronic renal failure. He is ordered for two units of packed red blood cells, but he has adamantly refusing. He states he is bruised from multiple IV lines. I assured him that the blood transfusion can be done without placing any new IV, but he is still refusing. We will readdress this again tomorrow. 5. Recurrent E. Coli urinary tract infection (UTI) with ultrasound evidence of bladder debris and history of urinary retention as well. The patient has Mendoza catheter in place. Urology has seen him and the plans is for further followup as an outpatient for cystoscopy. He continues no antibiotics as per infectious diseases.
[2018-10-15] MEDS: PHENYTOIN ER 100 MG CAP PO SCH (20:45)
[2018-10-15] MEDS: TAMSULOSIN 0.4 MG CAP PO SCH (20:45)
[2018-10-15] MEDS: CEPHALEXIN 500 MG CAP PO SCH (20:46)
[2018-10-16] VITALS: BP 172/68
[2018-10-16 04:00] VITALS: BP 172/66
[2018-10-16 05:31] LABS: HEMOGLOBIN 8.3 g/dl (13.5-17.5); MEAN CORPUSCULAR HEMOGLOBIN 27.8 pg (27.0-33.0); MEAN CORPUSCULAR HGB CONC 33.2 g/dl (32.0-36.5); MEAN CORPUSCULAR VOLUME 83.6 fl (80.0-96.0); PLATELET COUNT, AUTOMATED 352 10^3/uL (150-450); RED BLOOD COUNT 2.99 10^6/uL (4.30-6.10); WHITE BLOOD COUNT 7.5 10^3/uL (4.0-10.0)
[2018-10-16 05:59] LABS: CALCIUM LEVEL 7.9 MG/DL (8.8-10.2); CREATININE FOR GFR 1.64 MG/DL (0.70-1.30); GLOMERULAR FILTRATION RATE 44.8 (>49); POTASSIUM SERUM 3.2 MEQ/L (3.5-5.1)
[2018-10-16] MEDS: SLF 3 ML SYR IV SCH ×3 (06:00→21:28)
[2018-10-16 08:00] VITALS: BP 150/72
[2018-10-16 08:12] LABS: PERCENT SATURATION 55.1 % (19.7-50.0)
[2018-10-16] MEDS: HumaLOG INSULIN (NovoLOG) PER UNIT SC SCH ×4 (08:38→21:00)
[2018-10-16] MEDS: ASPIRIN 81 MG ENTERIC TAB PO SCH (08:38)
[2018-10-16] MEDS: LACTOBACILLUS ACIDOPHILUS CAP (BACID) PO SCH ×4 (08:39→21:26)
[2018-10-16] MEDS: **hydrALAZINE** 50 MG TAB PO SCH ×3 (08:40→21:26)
[2018-10-16] MEDS: FOLIC ACID 1 MG TAB PO SCH (08:40)
[2018-10-16] MEDS: CARVedilol 12.5 MG TAB PO SCH ×2 (08:41→21:26)
[2018-10-16] MEDS: CEPHALEXIN 500 MG CAP PO SCH ×2 (08:41→21:27)
[2018-10-16] MEDS ORDERED: DARBEPOETIN 100 MCG/0.5 ML *NON-DIALYSIS* SYRINGE (J0881) SQ SCH (09:00)
[2018-10-16] MEDS ORDERED: POTASSIUM CHLORIDE 10 MEQ SR TABLET PO ONE (09:00)
--- NOTE | 2018-10-16 10:49 | IPNPDOC ---
Subjective Date Seen The patient was seen on 10/16/18. Subjective Chief Complaint/HPI Patient seen and examined at the bedside. Reports that he is feeling much better today as he was transfused yesterday. Objective Physical Examination General Exam: Positive: Alert, Cooperative, No Acute Distress ENT Exam: Positive: Atraumatic, Mucous membr. moist/pink Chest Exam: Positive: Normal air movement; Negative: Rales, Rhonchi, Wheezing Heart Exam: Positive: Rate Normal, Normal S1, Normal S2 Abdomen Exam: Positive: Soft; Negative: Tenderness Extremity Exam: Negative: Tenderness, Swelling Neuro Exam: Positive: Other (awake, alert, oriented to self. Seems to move all 4 extremities. Did not follow commands) A-FIB/CHADSVASC A-FIB History Current/History of A-Fib/PAF?: No Assessment /Plan Plan/VTE VTE Prophylaxis Ordered?: Yes Plan Acute metabolic encephalopathy secondary to recurrent UTI Urine cultures noted - E.Coli Blood cultures negative ID input appreciated, transitioned the patient to PO Keflex Bladder debris in the setting of Recurrent UTI's as noted on ultrasound Urology input noted--Bladder debris likely 2/2 chronic urinary retention. Continue riggins catheterization and antibiotics. Patient will need to follow up as an outpatient with Urology for cystoscopy and further evaluation for suprapubic cystostomy tube placement as per Urology. Acute Kidney Injury Superimposed on CKD Stage III 2/2 UTI Renal function has returned back to baseline Acute on Chronic Normocytic Anemia likely 2/2 Dilutional Effect from IVF, underl kendra AOCD s/p 1 Unit of PRBC transfusion No overt bleeding noted Chronic diastolic congestive heart failure/HFpEF: 2D echocardiogram notable for Grade 1 DD History of C. difficile: We will monitor for diarrhea History of right frontal lobe lesion/hemorrhagic stroke status post resection 2019: Continue Dilantin for seizure prophylaxis Head CT did not show acute findings as noted above Diabetes mellitus 2 with long-term insulin use: Continue sliding scale Hypertension Cont regimen as ordered Left carotid artery stenosis status post stenting Continue aspirin DVT prophylaxis SCDs and TEDs Dispo: Pending continued clinical improvement, PT clearance. VS, I&O, 24H, Fishbone Vital Signs/I&O Vital Signs Date Time Temp Pulse Resp B/P (MAP) Pulse Ox O2 Delivery O2 Flow Rate FiO2 10/16/18 08:41 75 150/72 10/16/18 08:00 96.6 18 97 10/11/18 17:00 Room Air I&O- Last 24 Hours up to 6 AM 10/16/18 06:00 Intake Total 530 ml Output Total 2525 ml Balance -1995 ml Laboratory Data 24H LABS Laboratory Tests 2 10/15/18 11:53: Bedside Glucose (Misc Panel) 271H 10/15/18 16:30: Bedside Glucose (Misc Panel) 350H 10/15/18 21:20: Bedside Glucose (Misc Panel) 197H 10/16/18 04:59: Nucleated Red Blood Cells % (auto) 0.0, Anion Gap 6L, Glomerular Filtration Rate 44.8L, Blood Urea Nitrogen 44H, Creatinine 1.64H, Sodium Level 139, Potassium Level 3.2L, Chloride Level 107, Carbon Dioxide Level 26, Calcium Level 7.9L, Iron Level 86, Total Iron Binding Capacity 156L, Transferrin % Saturation 55.1H, Ferritin 549H CBC/BMP Laboratory Tests 10/16/18 04:59 Red Blood Count 2.99 L, Mean Corpuscular Volume 83.6, Mean Corpuscular Hemoglobin 27.8, Mean Corpuscular Hemoglobin Concent 33.2, Red Cell Distribution Width 14.7 H, Calcium Level 7.9 L Microbiology Microbiology 10/10/18 Blood Culture - Final, Complete NO GROWTH AFTER 5 DAYS 10/10/18 Blood Culture - Final, Complete NO GROWTH AFTER 5 DAYS 10/10/18 Urine Culture - Final, Complete Escherichia Coli HAILEY MCKEON MD Oct 16, 2018 10:48
[2018-10-16 12:00] VITALS: BP 152/80
[2018-10-16] MEDS: SENNA 8.6 MG TAB (SENOKOT) PO SCH ×2 (14:42→21:26)
[2018-10-16 16:00] VITALS: BP 160/80
[2018-10-16 20:00] VITALS: BP 142/68
[2018-10-16] MEDS: PHENYTOIN ER 100 MG CAP PO SCH (21:25)
[2018-10-16] MEDS: TAMSULOSIN 0.4 MG CAP PO SCH (21:27)
[2018-10-17] VITALS: BP 158/72
[2018-10-17 04:00] VITALS: BP 140/82
[2018-10-17] MEDS: SLF 3 ML SYR IV SCH ×3 (05:00→21:34)
[2018-10-17 05:56] LABS: HEMATOCRIT 26.2 % (42.0-52.0); HEMOGLOBIN 8.4 g/dl (13.5-17.5); MEAN CORPUSCULAR HEMOGLOBIN 27.6 pg (27.0-33.0); MEAN CORPUSCULAR HGB CONC 32.1 g/dl (32.0-36.5); MEAN CORPUSCULAR VOLUME 86.2 fl (80.0-96.0); PLATELET COUNT, AUTOMATED 336 10^3/uL (150-450); RED BLOOD COUNT 3.04 10^6/uL (4.30-6.10); WHITE BLOOD COUNT 7.4 10^3/uL (4.0-10.0)
[2018-10-17 06:24] LABS: CALCIUM LEVEL 7.9 MG/DL (8.8-10.2); CREATININE FOR GFR 1.84 MG/DL (0.70-1.30); GLOMERULAR FILTRATION RATE 39.3 (>49); POTASSIUM SERUM 3.9 MEQ/L (3.5-5.1)
[2018-10-17 08:00] VITALS: BP 144/82
[2018-10-17] MEDS: HumaLOG INSULIN (NovoLOG) PER UNIT SC SCH ×4 (08:03→21:00)
[2018-10-17] MEDS: LACTOBACILLUS ACIDOPHILUS CAP (BACID) PO SCH ×4 (08:03→21:30)
[2018-10-17] MEDS: CEPHALEXIN 500 MG CAP PO SCH ×2 (08:05→21:31)
[2018-10-17] MEDS: SENNA 8.6 MG TAB (SENOKOT) PO SCH ×2 (08:05→21:00)
[2018-10-17] MEDS: ASPIRIN 81 MG ENTERIC TAB PO SCH (08:05)
[2018-10-17] MEDS: FOLIC ACID 1 MG TAB PO SCH (08:05)
[2018-10-17] MEDS: **hydrALAZINE** 50 MG TAB PO SCH ×3 (08:07→21:28)
[2018-10-17] MEDS: CARVedilol 12.5 MG TAB PO SCH ×2 (08:08→21:30)
[2018-10-17 12:00] VITALS: BP 132/78
--- NOTE | 2018-10-17 12:03 | IPN ---
DATE OF SERVICE: 10/15/2018 SUBJECTIVE: The patient is seen and examined this morning at the bedside. I found him to be in much better spirits today. He is much more cooperative. Today, he is agreeing for a blood transfusion. Says he had a lengthy discussion regarding the same with his . He is feeling "more like my normal self." He denies any shortness of breath, nausea, vomiting, diarrhea, or chest pain. Is tolerating oral intake well. VITAL SIGNS: Temperature 97.3, pulse 66, respiratory rate 18, blood pressure 148/96, saturating 99% on room air. Intake yesterday was 2.1 liters. Urine output yesterday was 1.5 liters. Urine output thus far today is 2.5 liters. Weight in the bed scale today is 88.2 kg. GENERAL: The patient is seen sitting out of bed to the chair. Smiling and in a good mood today. Awake, alert, and oriented to person, place, and situation. Extraocular muscles are intact. Tongue is moist. Jugular veins are not elevated. CARDIAC: S1, S2, regular rate and rhythm. LUNGS: Are clear to auscultation bilaterally. No crackle, rales, or wheeze. The abdomen is soft. There is no tenderness to palpation. There are bowel sounds. GENITOURINARY: Shows a Mendoza catheter indwelling. LOWER EXTREMITIES: Are negative for edema. LABORATORIES: White count 8.2, hemoglobin 7.7, platelets 374. Sodium 138, potassium 3.0, BUN 49, creatinine 1.8. INPATIENT MEDICATIONS: Reviewed by me and noted the patient is now on Keflex 500 mg by mouth twice a day and the cephazolin has been stopped. The remainder of medications also show are dose of oral potassium and the rest is unchanged from prior. PROBLEMS: 1. Acute kidney injury superimposed on chronic kidney disease (CKD) stage III. Baseline creatinine is 1.7. Renal function has recovered towards his usual baseline. He is doing well with oral intake. He has been off of intravenous (IV) fluids for the past day. His diuretics remain on hold. Volume status is acceptable at present, and we will keep a close eye on the same. 2. History of diastolic congestive heart failure. Diuretics remain on hold at present. He is off of IV fluids now. We will resume the diuretics when indicated. 3. Anemia related to chronic renal failure. The patient is agreeable for a blood transfusion today. Iron panel is pending. Will also resume him on Aranesp. No signs of bleeding noted. 4. Metabolic encephalopathy secondary to recurrent urinary tract infection (UTI). Today, the patient's orientation was better than it has been on previous days, and I was able to hold a reasonable conversation with him. Infectious disease has transitioned the patient to oral Keflex. 5. Recurrent Escherichia (E.) coli urinary tract infection with bladder debris. Urology input is noted. Currently, with Mendoza catheter, and the patient will followup further with urology as an outpatient. 6. Hypertension. Blood pressures are somewhat uncontrolled. He is receiving carvedilol and hydralazine. Will monitor for now.
[2018-10-17 16:00] VITALS: BP 158/80
--- NOTE | 2018-10-17 16:27 | IPNPDOC ---
Subjective Date Seen The patient was seen on 10/17/18. Subjective Chief Complaint/HPI Patient seen and examined at the bedside. He voiced his frustration about being in the hospital and not being cleared by PT without 12/01 supervision. Does not offer any other acute complaints at this time Objective Physical Examination General Exam: Positive: Alert, Cooperative, No Acute Distress ENT Exam: Positive: Atraumatic, Mucous membr. moist/pink Chest Exam: Positive: Normal air movement; Negative: Rales, Rhonchi, Wheezing Heart Exam: Positive: Rate Normal, Normal S1, Normal S2 Abdomen Exam: Positive: Soft; Negative: Tenderness Extremity Exam: Negative: Tenderness, Swelling Psych Exam: Positive: Oriented x 3 Assessment /Plan Plan/VTE VTE Prophylaxis Ordered?: Yes Plan Acute metabolic encephalopathy secondary to recurrent UTI Urine cultures noted - E.Coli Blood cultures negative ID input appreciated, transitioned the patient to PO Keflex Bladder debris in the setting of Recurrent UTI's as noted on ultrasound Urology input noted--Bladder debris likely 2/2 chronic urinary retention. Continue riggins catheterization and antibiotics. Patient will need to follow up as an outpatient with Urology for cystoscopy and further evaluation for suprapubic cystostomy tube placement as per Urology. 9mm nodule noted on ZEHRA on CXR Findings discussed with the patient/ Johanne Isaac at length regarding the need to follow up with PCP for a follow up CT of the Chest. Malignancy cannot be ruled out until we have follow-up imaging, and possibly biopsy if indicated. The patient/ verbalized understanding of the same and has stated that he will follow up with his PCP regarding this. Acute Kidney Injury Superimposed on CKD Stage III 2/2 UTI Renal function has returned back to baseline Acute on Chronic Normocytic Anemia likely 2/2 Dilutional Effect from IVF, underlying AOCD s/p 1 Unit of PRBC transfusion No overt bleeding noted Chronic diastolic congestive heart failure/HFpEF: 2D echocardiogram notable for Grade 1 DD History of C. difficile: We will monitor for diarrhea History of right frontal lobe lesion/hemorrhagic stroke status post resection 2019: Continue Dilantin for seizure prophylaxis Head CT did not show acute findings as noted above Diabetes mellitus 2 with long-term insulin use: Continue sliding scale Hypertension Cont regimen as ordered Left carotid artery stenosis status post stenting Continue aspirin DVT prophylaxis SCDs and TEDs Dispo: I had a long conversation with the patient, his Johanne, with bedside RN Saurva present today in the room. Patient voiced his frustration about not being able to be cleared by physical therapy without / supervision. We will have physical therapy and PFS further readdress this in the a.m., and look for options that may be able to get the patient home in the safest situation possible. VS, I&O, 24H, Fishbone Vital Signs/I&O Vital Signs Date Time Temp Pulse Resp B/P (MAP) Pulse Ox O2 Delivery O2 Flow Rate FiO2 10/17/18 12:00 97.9 75 18 132/78 (96) 98 10/11/18 17:00 Room Air I&O- Last 24 Hours up to 6 AM 10/17/18 06:00 Intake Total 1220 ml Output Total 2400 ml Balance -1180 ml Laboratory Data 24H LABS Laboratory Tests 2 10/16/18 16:54: Bedside Glucose (Misc Panel) 139H 10/16/18 20:18: Bedside Glucose (Misc Panel) 138H 10/17/18 05:28: Nucleated Red Blood Cells % (auto) 0.0, Anion Gap 6L, Glomerular Filtration Rate 39.3L, Blood Urea Nitrogen 46H, Creatinine 1.84H, Sodium Level 138, Potassium Level 3.9#, Chloride Level 108H, Carbon Dioxide Level 24, Calcium Level 7.9L 10/17/18 11:48: Bedside Glucose (Misc Panel) 245H CBC/BMP Laboratory Tests 10/17/18 05:28 Red Blood Count 3.04 L, Mean Corpuscular Volume 86.2, Mean Corpuscular Hemoglobin 27.6, Mean Corpuscular Hemoglobin Concent 32.1, Red Cell Distribution Width 15.1 H, Calcium Level 7.9 L Microbiology Microbiology 10/10/18 Blood Culture - Final, Complete NO GROWTH AFTER 5 DAYS 10/10/18 Blood Culture - Final, Complete NO GROWTH AFTER 5 DAYS 10/10/18 Urine Culture - Final, Complete Escherichia Coli HAILEY MCKEON MD Oct 17, 2018 16:27
--- NOTE | 2018-10-17 16:42 | IPN ---
DATE: 10/16/2018 SUBJECTIVE: Patient was seen and examined at the bedside today morning. He was actually sitting up in the sofa. His was also present in the room. Patient is much more awake and alert today. He got 1 unit of packed red blood cells (PRBC) transfusion. Hemoglobin is nicely improved to 8.3 today. Renal function also continues to improve. Creatinine is down to 1.6 today. OBJECTIVE: VITAL SIGNS: Temperature is 97.6 degrees Fahrenheit, blood pressure 160/80, pulse is 66, respiratory rate of 18, saturating 99% on room air. INTAKE AND OUPUT: Urine output recorded is of 1.3 liters so far today since overnight. Weight in the bed scale is 88.9 kg. PHYSICAL EXAMINATION: GENERAL: Patient is awake, alert, oriented times three, sitting up in the sofa, no apparent distress. HEAD AND NECK EXAM: Extraocular muscles intact. Pupils equally round and reactive to light. Mucous membranes are moist. Neck is supple. There is no jugular venous distention (JVD). CARDIOVASCULAR: S1, S2. Regular rate. No edema of the bilateral lower extremities. RESPIRATORY: Chest is clear to auscultation bilaterally. Bilateral equal air entry. No rales or rhonchi. ABDOMEN: Soft. Positive bowel sounds. Nontender. No organomegaly. GENITOURINARY: He has an indwelling Mendoza catheter. Urine in the bag has a little bit of debris. MUSCULOSKELETAL: No clubbing or cyanosis. Pulses are 2+. CENTRAL NERVOUS SYSTEM (BENDER HELPER): No focal deficit. Power is 5/5 in bilateral upper extremities. LABORATORY REVIEW: Complete blood count (CBC) showed a WBC 7.5, hemoglobin 8.3, platelets are 352. Basic metabolic panel (BMP) showed sodium 139, potassium 3.2, chloride 107, bicarbonate 26, BUN 44, creatinine is 1.6 (it was 1.8 yesterday). Iron is 86, transferrin saturation of 55.1 and ferritin is 549. CURRENT INPATIENT MEDICATIONS: Patient's medications were all reviewed by me. I gave the patient a dose of Aranesp 100 mcg subcutaneous today morning. He was given a dose of potassium chloride 40 mEq today morning. He is not on any diuretics at this point. ASSESSMENT AND PLAN: 1. Acute kidney injury superimposed on chronic renal disease stage III. Patient's renal function continues to improve. Creatinine is down to 1.6, which is close to his baseline. No need of diuretics at this point. 2. Anemia secondary to chronic kidney disease and iron deficiency. The patient was given 1 unit of PRBC transfusion yesterday. I checked his iron levels again today, which are adequate. He was given a dose of Aranesp 100 mcg subcutaneous today morning as well. 3. Hypokalemia. The patient was given a dose of potassium chloride 40 mEq by mouth today morning. 4. Chronic diastolic congestive heart failure. Volume status is optimal. Continue current dose of Coreg and hydralazine. No need of diuretics at this point 5. Recurrent urinary tract infection. Patient has an indwelling Mendoza catheter for urinary retention. He will need to follow up with urology as outpatient. He continues to be on Keflex 500 mg by mouth twice a day, which was started yesterday.
[2018-10-17] MEDS: FEBUXOSTAT 40 MG TABLET (ULORIC) PO SCH (18:25)
[2018-10-17 20:00] VITALS: BP 166/66
[2018-10-17] MEDS: TAMSULOSIN 0.4 MG CAP PO SCH (21:31)
[2018-10-17] MEDS: PHENYTOIN ER 100 MG CAP PO SCH (21:33)
[2018-10-17] MEDS ORDERED: ACETAMINOPHEN TAB 650MG DOSE (2X325MG) PO PRN (22:15)
[2018-10-18] VITALS: BP 158/62
[2018-10-18 04:00] VITALS: BP 162/68
[2018-10-18 05:17] LABS: HEMATOCRIT 25.4 % (42.0-52.0); HEMOGLOBIN 8.4 g/dl (13.5-17.5); MEAN CORPUSCULAR HEMOGLOBIN 28.4 pg (27.0-33.0); MEAN CORPUSCULAR HGB CONC 33.1 g/dl (32.0-36.5); MEAN CORPUSCULAR VOLUME 85.8 fl (80.0-96.0); PLATELET COUNT, AUTOMATED 310 10^3/uL (150-450); RED BLOOD COUNT 2.96 10^6/uL (4.30-6.10); WHITE BLOOD COUNT 7.3 10^3/uL (4.0-10.0)
[2018-10-18 05:39] LABS: CALCIUM LEVEL 7.8 MG/DL (8.8-10.2); CREATININE FOR GFR 1.78 MG/DL (0.70-1.30); GLOMERULAR FILTRATION RATE 40.8 (>49)
[2018-10-18] MEDS: SLF 3 ML SYR IV SCH ×2 (06:00→11:59)
[2018-10-18 08:00] VITALS: BP 178/80
[2018-10-18] MEDS: FOLIC ACID 1 MG TAB PO SCH (08:27)
[2018-10-18] MEDS: ASPIRIN 81 MG ENTERIC TAB PO SCH (08:27)
[2018-10-18] MEDS: CEPHALEXIN 500 MG CAP PO SCH (08:27)
[2018-10-18 08:28] VITALS: BP 162/68
[2018-10-18] MEDS: LACTOBACILLUS ACIDOPHILUS CAP (BACID) PO SCH ×2 (08:28→11:58)
[2018-10-18] MEDS: **hydrALAZINE** 50 MG TAB PO SCH (08:28)
[2018-10-18] MEDS: CARVedilol 12.5 MG TAB PO SCH (08:28)
[2018-10-18] MEDS: FEBUXOSTAT 40 MG TABLET (ULORIC) PO SCH (08:28)
[2018-10-18] MEDS: HumaLOG INSULIN (NovoLOG) PER UNIT SC SCH ×2 (08:29→11:59)
[2018-10-18] MEDS: SENNA 8.6 MG TAB (SENOKOT) PO SCH (08:29)
[2018-10-18 12:00] VITALS: BP 154/76
[2018-10-18] MEDS ORDERED: NORV5TAB PO (12:32)
[2018-10-18] MEDS ORDERED: KEFL500C17 PO (12:32)
--- NOTE | 2018-10-18 17:26 | DS.PDOC ---
Discharge Summary General Date of Admission Oct 11, 2018 at 00:56 Date of Discharge 10/18/18 Specialist/Consultants Involve Dr. Mayers of Nephrology, Dr. Hewitt of [place], Dr. Tyler of Urology Discharge Summary PROCEDURES PERFORMED DURING STAY: None. ADMITTING/DISCHARGE DIAGNOSES: Recurrent Urinary tract infection Metabolic encephalopathy secondary to above Acute kidney injury superimposed on chronic kidney disease stage III 9mm nodule noted on ZEHRA on CXR History of chronic diastolic CHF History of CVA Hypertension Diabetes COMPLICATIONS/CHIEF COMPLAINT: UTI. HISTORY OF PRESENT ILLNESS: . 68-year-old male with past medical history of HTN, DM, ENEDINA, CAD, CKD Stage III, C. Diff, and a right frontal lobe lesion discovered in June 2018 s/p resection with Neurosurgery at [facility] with pathology consistent with subacute infarction. The patient was then sent to ARU here from 07/09-08/06/18 for functional optimization.The patient was then admitted to [facility] from 08/07-08/13 for Sepsis 2/2 UTI Bacteremia. Of note, the patient has had 3 UTI's since his neurosurgical intervention in June 2018. He has been treated for this by infectious disease while in ARU and nephrology as an outpatient during this time. At this time, the patient returns with complaints of alt eration in mental status. The patient's history was limited given his clinical condition. However, according to the patient's he has been increasingly lethargic and fatigued over the last several days. This culminated this evening when the patient thought that he was going to the bathroom but was urinating in the bedroom. The patient's states that his lethargy and confusion is consistent with his presentation when he has had a urinary tract infection. She also notes that the patient's urine has been having a distinct smell. She denies her noting any fevers, chills, or any complaints of dysuria at home. In the ER, the patient was noted to have a urinalysis suggestive of underlying urinary tract infection. In addition, the patient also had leukocytosis and acute kidney injury superimposed on chronic kidney disease. The patient was admitted to the hospitalist service for further evaluation and management. During hospitalization, the patient was provided IV fluid hydration and a consult to nephrology and infectious diseases was placed. The patient's renal function returned back to baseline. In addition, the patient was started on IV antibiotic therapy and transition to by mouth with the assistance of infectious diseases. The patient's mentation returned back to baseline following the aforementioned therapy. Urology was consulted due to the patient's history of r ecurrent urinary tract infections and proteinaceous debris's noted in the lumen of the urinary bladder. Urology suspects that the patient may have chronic urinary retention following his CVA. They have recommended that the patient be discharged home with a Mendoza catheter and complete an antibiotic course for UTI. He is to follow-up with urology thereafter in the outpatient setting for cystoscopy and further discussion for possible suprapubic cystostomy tube placement. At this time, the patient states that he is feeling much better and is eager to return home. He has been seen and cleared by physical therapy after reviewing a safety plan with the patient's . Also of note during this hospi talization, the patient was noted to have an incidental finding of a 9 mm left upper lobe nodule on chest x-ray. I have discussed these results with the patient and his Johanne Isaac, and the need for the patient to follow-up with a CT scan of the chest. Given the patient's acute kidney injury due to aforementioned infection, we were reluctant to give the patient contrast here for a CT scan of the chest for further evaluation of the nodule. Concerns for possible underlying malignancy were discussed, the patient and his have verbalized understanding of the same and will follow up with their PCP for further workup. Medication changes during this hospitalization include, discontinuing the patient's diuretic therapy as he has remained euvolemic after his diuretic therapy which was held during this hospitalization. I did discuss with the patient and his about resuming diuretic therapy if the patient begins to have lower extremity edema, worsening shortness of breath, or signif icant weight gain from fluid retention after discussing this with his PCP. The patient is to follow-up with his primary care physician within 7 days for further evaluation and management and titration of his medications. He is also to follow-up with urology in 7-10 days for further evaluation. Lastly, the patient has been counseled to return to the ER for any acute emergencies. DISCHARGE MEDICATIONS: Please see below. ALLERGIES: Please see below. PHYSICAL EXAMINATION ON DISCHARGE: VITAL SIGNS: Please see below. General Exam: Positive: Alert, Cooperative, No Acute Distress ENT Exam: Positive: Atraumatic, Mucous membr. moist/pink Chest Exam: Positive: Normal air movement; Negative: Rales, Rhonchi, Wheezing Heart Exam: Positive: Rate Normal, Normal S1, Normal S2 Abdomen Exam: Positive: Soft; Negative: Tenderness Extremity Exam: Negative: Tenderness, Swelling Neuro Exam: Positive: awake, alert, oriented to self LABORATORY DATA: Please see below. IMAGING: EXAM: CT Head Without Contrast EXAM DATE/TIME: 10/10/2018 10:21 PM CLINICAL HISTORY: 68 years old, male; Signs and symptoms; Altered mental status/memory loss; Prior surgery; Surgery date: 6+ months; Additional info: AMS w/ neuro def TECHNIQUE: Imaging protocol: Axial computed tomography images of the head/brain without contrast. Radiation optimization: All CT scans at this facility use at least one of these dose optimization techniques: automated exposure control; mA and/or kV adjustment per patient size (includes targeted exams where dose is matched to clinical indication); or iterative reconstruction. COMPARISON: CT Head without contrast 08/07/2018 9:17 AM FINDINGS: Brain: Focus of macrocystic encephalomalacia in the underlying parenchyma likely postsurgical. Minimal thickening of the extra-axial soft tissues at the surgical bed likely postsurgical. There is parenchymal volume loss. White matter changes are demonstrated in the subcortical, centrum semiovale and periventricular white matter consistent with small vessel white matter angiopathic gliosis. Ventricles: The degree of ventricular dilatation is normal for age. No pathologic enlargement demonstrated. Bones/joints: Right anterior parietal craniotomy. Sinuses: Visualized sinuses are unremarkable. No acute sinusitis. Mastoid air cells: Visualized mastoid air cells are unremarkable. No mastoid effusion. Soft tissues: Unremarkable. IMPRESSION: There is parenchymal volume loss. White matter changes are demonstrated in the subcortical, centrum semiovale and periventricular white matter consistent with small vessel white matter angiopathic gliosis. No acute findings. Portable chest x-ray: Single view. History: Altered mental status. Comparison study: August 07, 2018. July 14, 2018 radiograph is also reviewed. Findings: EKG monitoring electrodes overlie the chest. Heart is not felt to be enlarged. Pulmonary vasculature is not increased. Pleural angles are sharp. There are degenerative changes at the shoulders. No other bony abnormality is seen. The thoracic aorta is slightly tortuous and calcific. There is a 9 mm nodular opacity projecting over the anterior third rib on the left in the upper lobe region. This does not appear to have been present previously. I cannot exclude a pulmonary nodule. Consider chest CT study. Impression: 9 mm nodular opacity left upper lobe region. Consider chest CT. Otherwise no acute disease. URINARY TRACT SONOGRAPHY: HISTORY: Acute kidney injury on chronic kidney injury. FINDINGS: Incidental note is made of multiple gallstones within the lumen of the gallbladder. No pericholecystic fluid is seen. Scanning at the level of the urinary bladder demonstrates subtle echogenic debris in the posterior portion of the gallbladder. No mass lesion is seen. Gallbladder sinha are smooth. Renal cortical echogenicity pattern is normal and contours are smooth bilaterally. No hydronephrosis is seen. The right kidney measures 10.1 x 6.4 x 6.1 cm. Left renal dimensions are 9.9 x 6.5 x 6.9 cm. IMPRESSION: Cholelithiasis. Proteinaceous debris or cellular material in the lumen of the urinary bladder. No hydronephrosis is seen. Otherwise negative. PROGNOSIS: Fair ACTIVITY: As tolerated. DIET: 2 g low sodium, 1800 mL fluid restricted diet DISCHARGE PLAN: DISPOSITION: [address] [place] [address] Service. DISCHARGE INSTRUCTIONS: The patient is to follow-up with his primary care physician within 7 days for further evaluation and management and titration of his medications. F/U with PCP regarding 9mm nodule noted on CXR with CT Chest. He is also to follow-up with urology in 7-10 days for further evaluation. Lastly, the patient has been counseled to return to the ER for any acute emergencies. DISCHARGE CONDITION: Stable. TIME SPENT ON DISCHARGE: Greater than 30 minutes. Vital Signs/I&Os Vital Signs Date Time Temp Pulse Resp B/P (MAP) Pulse Ox O2 Delivery O2 Flow Rate FiO2 10/18/18 12:00 97.2 72 20 154/76 (102) 100 I&O- Last 24 Hours up to 6 AM 10/18/18 06:00 Intake Total 1730 ml Output Total 2525 ml Balance -795 ml Laboratory Data Labs 24H Laboratory Tests 2 10/17/18 17:43: Bedside Glucose (Misc Panel) 140H 10/17/18 20:09: Bedside Glucose (Misc Panel) 166H 10/18/18 04:47: Nucleated Red Blood Cells % (auto) 0.0, Anion Gap 7L, Glomerular Filtration Rate 40.8L, Blood Urea Nitrogen 42H, Creatinine 1.78H, Sodium Level 138, Potassium Level 4.0, Chloride Level 107, Carbon Dioxide Level 24, Calcium Level 7.8L 10/18/18 11:32: Bedside Glucose (Misc Panel) 162H CBC/BMP Laboratory Tests 10/18/18 04:47 Red Blood Count 2.96 L, Mean Corpuscular Volume 85.8, Mean Corpuscular Hemoglobin 28.4, Mean Corpuscular Hemoglobin Concent 33.1, Red Cell Distribution Width 15.0 H, Calcium Level 7.8 L FSBS Laboratory Tests Test 10/17/18 17:43 10/17/18 20:09 10/18/18 11:32 Range/Units Bedside Glucose (Misc Panel) 140 166 162 80-115 MG/DL Microbiology Microbiology 10/10/18 Blood Culture - Final, Complete NO GROWTH AFTER 5 DAYS 10/10/18 Blood Culture - Final, Complete NO GROWTH AFTER 5 DAYS 10/10/18 Urine Culture - Final, Complete Escherichia Coli Discharge Medications Scheduled Amlodipine Besylate (Norvasc) 5 Mg Tablet, 1 TAB PO DAILY Aspirin (Aspirin EC) 81 Mg Tab, 81 MG PO DAILY, (Reported) Calcitriol (Rocaltrol) 0.25 Mcg Cap, 0.25 MCG PO DAILY, (Reported) Calcitriol (Calcitriol) 0.25 Mcg Capsule, 0.25 MCG PO DAILY, (Reported) Carvedilol (Carvedilol) 25 Mg Tablet, 25 MG PO BID, (Reported) Cephalexin (Keflex) 500 Mg Capsule, 1 CAP PO BID Febuxostat (Uloric) 80 Mg Tablet, 120 MG PO DAILY, (Reported) Folic Acid (Folic Acid) 1 Mg Tablet, 1 MG PO DAILY, (Reported) Gemfibrozil (Gemfibrozil) 600 Mg Tab, 600 MG PO BID, (Reported) Hydralazine HCl (Hydralazine HCl) 50 Mg Tablet, 50 MG PO TID, (Reported) Insulin Glargine,Hum.rec.anlog (Lantus Solostar) 100 Unit/1 Ml Insuln.pen, 12 UNIT SC QAM, (Reported) Phenytoin Sodium Extended (Dilantin) 100 Mg Capsule, 300 MG PO QHS, (Reported) Ramelteon (Rozerem) 8 Mg Tablet, 8 MG PO QHS, (Reported) Tamsulosin HCl (Flomax) 0.4 Mg Cap, 0.4 MG PO QHS, (Reported) Allergies Coded Allergies: No Known Allergies (Verified , 03/30/18) HAILEY MCKEON MD Oct 18, 2018 17:26
--- NOTE | 2018-10-19 09:10 | IPN ---
DATE OF VISIT: 10/17/2018 SUBJECTIVE: The patient was seen and examined at the bedside today morning. He is awake and alert, hemodynamically stable. He denies any active complaints. He has a very good urine output, renal function is stable. Creatinine has been fluctuating at around 1.6-1.8. OBJECTIVE: VITAL SIGNS: Temperature is 97.9 degrees Fahrenheit , blood pressure 132/78, pulse is 75, respiratory rate of 18, saturating 98% on room air. Intake and output: Urine output recorded as 1.7 liters yesterday, 625 mL over today since overnight. Weight n the bed scale is 93.3 kg. PHYSICAL EXAMINATION: GENERAL: The patient is awake, alert, oriented times three sitting up in the sofa in no apparent distress. HEENT/NECK: Extraocular muscles intact. Pupils equally round and reactive to light. Right-sided craniotomy scar has healed now. CARDIOVASCULAR: S1-S2 regular rate. No edema of the bilateral lower extremities. RESPIRATORY: Chest is clear to auscultation bilaterally. Bilateral equal air entry. No rales or rhonchi. ABDOMEN: Soft. Positive bowel sounds. Nontender. No organomegaly. GENITOURINARY: He has an indwelling Mendoza catheter. MUSCULOSKELETAL: No clubbing or cyanosis. Pulses are 2+. CENTRAL NERVOUS SYSTEM: No focal deficits. Power is 5/5 in all extremities. LABORATORY DATA: The CBC showed a WBC 7.8, hemoglobin 8.4, platelets of 336. Basic Metabolic Profile (BMP) showed sodium 138, potassium 3.9, chloride 108, bicarb 24, BUN 46, creatinine is 1.8, calcium 7.9. CURRENT INPATIENT MEDICATIONS: The patient's medications were all reviewed by me. There is no change in the medications today as compared with yesterday. ASSESSMENT/PLAN: 1. Chronic kidney disease stage III. The patient's renal function has improved back to baseline, creatinine is stable. 2. Chronic diastolic congestive heart failure. Volume status is optimal, no need of diuretics at this point. 3. Anemia and chronic kidney disease. Iron levels are adequate. He has been started on Aranesp injections, hemoglobin is slowly improving. 4. Chronic urinary retention. The patient has an indwelling Mendoza catheter. He would need to follow up with urology as an outpatient. 5. Hypertension. Blood pressure is acceptable. Continue current dose of Coreg and hydralazine.
--- NOTE | 2018-10-19 13:39 | IPN ---
DATE: 10/18/2018 SUBJECTIVE: The patient was seen and examined at the bedside today morning. His renal function is stable. Creatinine is down to 1.74. He reports that he started having pain in the left knee, and he realized that he was not being given Uloric in the hospital. His Uloric was just restarted today. Otherwise, he is stable. He reports that he is getting ready to be discharged today. OBJECTIVE: Vital signs: Temperature is 97.2 degrees Fahrenheit, blood pressure 154/76, pulse is 72, respiratory of 20, saturating 100% on room air. Intake and output: Urine output recorded is at 2.2 liters since overnight. Weight in the bed scale is 90.5. PHYSICAL EXAMINATION: GENERAL: The patient is awake, alert, oriented times three, lying in bed. No apparent distress. HEAD AND NECK: Extraocular muscles intact. Pupils equally round and reactive to light. Mucous membranes are moist. NECK: Supple. There is no jugular venous distention (JVD). CARDIOVASCULAR: S1, S2, regular rate. No edema of the bilateral lower extremities. RESPIRATORY: Chest is clear to auscultation bilaterally. Bilateral equal air entry. No rales or rhonchi. ABDOMEN: Soft. Positive bowel sounds. Nontender. No organomegaly. GENITOURINARY: The patient has an indwelling Mendoza catheter. MUSCULOSKELETAL: No clubbing or cyanosis. Pulses are 2+. CENTRAL NERVOUS SYSTEM: No focal deficit. Power is 5/5 in all extremities. LABORATORY REVIEW: CBC showed a WBC 7.3, hemoglobin 8.4, platelets are 310. BMP showed sodium 138, potassium 4, chloride 107, bicarbonate 24, BUN 42, creatinine is 1.7; it was .8 yesterday. CURRENT INPATIENT MEDICATIONS: The patient's medications were all reviewed by me. His Uloric was restarted at 120 mg by mouth daily. No other change in the medications today as compared with yesterday. ASSESSMENT AND PLAN: 1. Chronic kidney disease. stage III. Patient's renal function is stable. Creatinine has been fluctuating at around 1.7. He will need to followup with urology as outpatient. 2. Anemia secondary to chronic kidney disease. The patient was given a dose of Aranesp. He will need to get erythropoietin stimulating agent (NICOLASA) as outpatient. That will be set up when he follows up in the clinic. 3. Chronic diastolic congestive heart failure. Volume status is optimal. No need of diuretics. Continue current dose of Coreg and hydralazine. 4. Chronic gout secondary to chronic kidney disease. The patient will need to continue Uloric 120 mg by mouth daily. He has polyarticular gout. If his symptoms persist, then he will be given Krystexxa infusions as outpatient. 5. Chronic urinary retention. Continue the Mendoza catheter at this point. He will need to followup with urology as outpatient.
== END 2018-10-18 16:20 | disposition home health service (06) | DRG 689 ==
LOC: M ED 21:34 → M ED INP 10-11 00:56 → M PCU 10-11 18:40
PROVIDERS: ADMIT Internal Medicine; ATTEND Internal Medicine
PROC: 30233N1 Transfusion of Nonautologous Red Blood Cells into Peripheral Vein, Percutaneous Approach (ICD-10-PCS; principal; 2018-10-15)
DX: N39.0 Urinary tract infection, site not specified (principal); G93.41 Metabolic encephalopathy; N17.9 Acute kidney failure, unspecified; I50.32 Chronic diastolic (congestive) heart failure; I13.0 Hypertensive heart and chronic kidney disease with heart failure and stage 1 through stage 4 chronic kidney disease, or unspecified chronic kidney disease; N25.81 Secondary hyperparathyroidism of renal origin; E87.2 Acidosis; E11.9 Type 2 diabetes mellitus without complications; Z86.73 Personal history of transient ischemic attack (TIA), and cerebral infarction without residual deficits; R91.1 Solitary pulmonary nodule; N18.3 Chronic kidney disease, stage 3 (moderate); G47.33 Obstructive sleep apnea (adult) (pediatric); I25.10 Atherosclerotic heart disease of native coronary artery without angina pectoris; Z79.899 Other long term (current) drug therapy; Z79.82 Long term (current) use of aspirin; Z79.4 Long term (current) use of insulin; M10.9 Gout, unspecified; D63.1 Anemia in chronic kidney disease; D50.9 Iron deficiency anemia, unspecified; B96.29 Other Escherichia coli [E. coli] as the cause of diseases classified elsewhere; E87.6 Hypokalemia

== ENCOUNTER → 2018-10-20 | Outpatient (REF) | payer OTHER, MEDICARE ==
[~2018-10-20] MED LIST changes: +DILA100C PO; +HYDR50TA PO; +KEFL500C17 PO; +NORV5TAB PO
[2018-10-20 19:28] LABS: PERCENT SATURATION 41.2 % (19.7-50.0)
== END ==
LOC: M LAB REF 17:21
PROVIDERS: ATTEND Internal Medicine Nephrology
DX: D50.9 Iron deficiency anemia, unspecified (principal); D63.1 Anemia in chronic kidney disease; N39.0 Urinary tract infection, site not specified

== ENCOUNTER 2018-10-30 05:53 | Emergency (ER) | payer OTHER, MEDICARE ==
[~2018-10-30] VITALS: Ht 175.3 cm; Wt 84.1 kg
[2018-10-30] MEDS ORDERED: NS 500 ML IV ONE ×2 (06:30→08:15)
[2018-10-30 07:02] LABS: BASO % 0.3 % (0.0-1.0); EOS # 0.2 10^3/uL (0.0-0.50); EOS % 2.8 % (0.0-3.0); HEMATOCRIT 31.1 % (42.0-52.0); LYMPH # 0.5 10^3/uL (1.5-4.5); LYMPH % 7.8 % (24.0-44.0); MEAN CORPUSCULAR HEMOGLOBIN 28.1 pg (27.0-33.0); MEAN CORPUSCULAR HGB CONC 32.2 g/dl (32.0-36.5); MEAN CORPUSCULAR VOLUME 87.4 fl (80.0-96.0); MONO # 0.6 10^3/uL (0.0-0.8); MONO % 8.7 % (0.0-5.0); NEUTROPHILS # 5.5 10^3/uL (1.8-7.7); NEUTROPHILS % 80.3 % (36.0-66.0); PLATELET COUNT, AUTOMATED 272 10^3/uL (150-450); RED BLOOD COUNT 3.56 10^6/uL (4.30-6.10); WHITE BLOOD COUNT 6.8 10^3/uL (4.0-10.0)
[2018-10-30] MEDS ORDERED: amLODIPine 5 MG TAB PO ONE (07:15)
[2018-10-30] MEDS ORDERED: **hydrALAZINE** 50 MG TAB PO ONE (07:15)
[2018-10-30] MEDS ORDERED: CARVedilol 12.5 MG TAB PO ONE (07:15)
--- NOTE | 2018-10-30 07:21 | REPVR ---
EXAM: CT Head Without Contrast EXAM DATE/TIME: 10/30/2018 6:16 AM CLINICAL HISTORY: 68 years old, male; HX stroke; Prior surgery; Surgery date: 1-6 months; Surgery type: Craniotomy for non tumor; Additional info: Slow mentation, confusion TECHNIQUE: Imaging protocol: Axial computed tomography images of the head/brain without contrast. Radiation optimization: All CT scans at this facility use at least one of these dose optimization techniques: automated exposure control; mA and/or kV adjustment per patient size (includes targeted exams where dose is matched to clinical indication); or iterative reconstruction. COMPARISON: CT Head without contrast 10/10/2018 10:[address] Head without contrast 08/07/2018 9:17:08 AM FINDINGS: Brain: There is no evidence for an acute large vessel territorial infarct, acute intracranial hemorrhage, mass, mass effect, or herniation. There is a region of low attenuation in the right frontal lobe, which is compatible with encephalomalacia that is similar in appearance compared to the prior CT scan on 10/10/2018. There is mild dural thickening deep to the right frontal parietal craniotomy site, which is similar in appearance compared to the prior CT scan on 10/10/2018. There are non-specific foci of low attenuation in the periventricular and subcortical white matter, which are likely the sequela of chronic small vessel ischemic injury and are similar in appearance compared to the prior CT scans on 10/10/2018 and 08/07/2018. Brainstem: Unremarkable. Midline shift: There is no midline shift. Ventricles: The ventricles are mildly to moderately dilated in proportion to the sulci, which is compatible with mild to moderate generalized cerebral volume loss that is similar in appearance compared to the prior CT scans on 10/10/2018 and 08/07/2018. Bones/joints: Postoperative changes are noted from a right frontoparietal craniotomy. No acute fracture or bony destructive changes are noted. Sinuses: There is opacification of the right maxillary sinus. The maxillary sinuses were not fully imaged. There is mild opacification of the right ethmoid sinus. No air-fluid levels are seen in the sinuses. Mastoid air cells: Visualized mastoid air cells are unremarkable. No mastoid effusion. Orbits: Incidental note is made of bilateral lens implants. Soft tissues: Unremarkable. Vasculature: There are atherosclerotic calcifications of the intracranial portion of the vertebral arteries and internal carotid arteries. IMPRESSION: 1. No CT evidence for an acute intracranial process. 2. Postoperative changes from a right frontoparietal craniotomy, with encephalomalacia in the right frontal lobe that is similar in appearance compared to the prior CT scan on 10/10/2018. Electronically signed by: Juan Ojeda On 10/30/2018 07:21:03 AM
[2018-10-30 07:45] VITALS: BP 219/88
[2018-10-30 07:47] LABS: ALBUMIN 3.3 GM/DL (3.2-5.2); ALT/SGPT 10 U/L (12-78); BILIRUBIN,DIRECT < 0.1 MG/DL (0.0-0.2); BILIRUBIN,TOTAL 0.5 MG/DL (0.2-1.0); BLOOD UREA NITROGEN 33 MG/DL (7-18); CARBON DIOXIDE LEVEL 20 MEQ/L (21-32); CHLORIDE LEVEL 112 MEQ/L (98-107); CPK CREATINE PHOSPHOKINASE 29 U/L (39-308); CREATININE FOR GFR 2.08 MG/DL (0.70-1.30); GLOMERULAR FILTRATION RATE 34.1 (>49); GLUCOSE, FASTING 114 MG/DL (70-100); MB/CK RELATIVE INDEX 4.83 (< OR =4); POTASSIUM SERUM 4.2 MEQ/L (3.5-5.1); SODIUM LEVEL 142 MEQ/L (136-145); TROPONIN I < 0.02 NG/ML (< 0.10)
[2018-10-30] MEDS ORDERED: LIDOCAINE 2% 5ML JELLY UROJET TOP ONE (09:00)
[2018-10-30] MEDS ORDERED: FEBUXOSTAT 40 MG TABLET (ULORIC) PO SCH (09:00)
[2018-10-30] MEDS ORDERED: cefTRIAXone SOD 1 GM in D5W MINI-BAG PLUS 50 ML IV ONE (10:45)
[2018-10-30] MEDS ORDERED: KEFL500C17 PO (11:29)
[2018-10-30 11:30] VITALS: BP 115/69
--- NOTE | 2018-10-30 17:11 | ECGEPIP ---
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 Order Number: [id number] Reading MD: Donell Hernandez Measurements Intervals [place] Rate: 79 P: 69 NH: 196 QRS: -28 QRSD: 105 T: 31 QT: 399 QTc: 458 Interpretive Statements SINUS RHYTHM SEPTAL MYOCARDIAL INFARCTION, OF INDETERMINATE AGE MODERATE INTRAVENTRICULAR CONDUCTION DELAY SIMILAR TO 10/10/18 Electronically Signed On 10-30-2018 17:11:03 EDT by Doenll Hernandez
== END 2018-10-30 12:00 | disposition home or self-care (01) ==
LOC: M ED 05:53
DX: N39.0 Urinary tract infection, site not specified (principal); R41.0 Disorientation, unspecified; R56.9 Unspecified convulsions; I13.0 Hypertensive heart and chronic kidney disease with heart failure and stage 1 through stage 4 chronic kidney disease, or unspecified chronic kidney disease; I50.9 Heart failure, unspecified; J44.9 Chronic obstructive pulmonary disease, unspecified; G47.30 Sleep apnea, unspecified; K92.9 Disease of digestive system, unspecified; N18.4 Chronic kidney disease, stage 4 (severe); E11.22 Type 2 diabetes mellitus with diabetic chronic kidney disease; D64.9 Anemia, unspecified; F32.9 Major depressive disorder, single episode, unspecified; Z87.440 Personal history of urinary (tract) infections; Z86.73 Personal history of transient ischemic attack (TIA), and cerebral infarction without residual deficits; Z87.891 Personal history of nicotine dependence; Z79.899 Other long term (current) drug therapy; Z79.82 Long term (current) use of aspirin; Z79.4 Long term (current) use of insulin; Z86.79 Personal history of other diseases of the circulatory system
CPT/HCPCS: 51701; 70450; 80048; 80076; 81001; 82550; 82553; 83605; 84484; 85025; 87040; 87088; 87186; 93005; 93041; 96361; 96365; 96366; 99285; J0696

== ENCOUNTER → 2018-11-22 | Outpatient (REF) | payer OTHER, MEDICARE | LOC: M LAB REF 12:25 | PROVIDERS: ATTEND Internal Medicine Nephrology | DX: N39.0 Urinary tract infection, site not specified (principal); N18.3 Chronic kidney disease, stage 3 (moderate); E11.22 Type 2 diabetes mellitus with diabetic chronic kidney disease ==

== ENCOUNTER → 2018-11-23 | Outpatient (CLI) | payer OTHER, MEDICARE ==
--- NOTE | 2018-11-24 03:54 | REP ---
Clinical: Acute renal failure. Technique: Real time powell scale ultrasound examination using curved array transducer. Findings: The bilateral kidneys are relatively normal in contour, size, echogenicity, and reniform shape without hydronephrosis, nephrolithiasis, cystic or renal mass lesion. My of increased central sinus fat may reflect early chronic renal disease. Right kidney measures 10.1 x 5.5 x 5.9 cm. Left kidney measures 10.9 x 4.6 x 5.8 cm. Bladder is normal in appearance. Prevoid bladder measures 578 ml. Postvoid bladder measures 371 ml. Postvoid residual equals 64%. Prostate gland measures 3.3 x 3.7 x 2.5 cm. Incidental cholelithiasis. Impression: 1. Essentially normal appearance the bilateral kidneys without hydronephrosis. Mild early chronic renal disease cannot be excluded. 2. Normal appearance to the bladder with increased postvoid residual volume noted. 3. Incidental cholelithiasis. Electronically Signed by Christopher Bautista MD 11/24/2018 03:46 A
== END ==
LOC: M RAD 10:28
PROVIDERS: ATTEND Internal Medicine Nephrology
DX: N17.9 Acute kidney failure, unspecified (principal); I50.32 Chronic diastolic (congestive) heart failure; N39.0 Urinary tract infection, site not specified; N40.1 Benign prostatic hyperplasia with lower urinary tract symptoms; K80.00 Calculus of gallbladder with acute cholecystitis without obstruction; R39.198 Other difficulties with micturition

== ENCOUNTER → 2018-12-16 | Outpatient (REF) | payer OTHER, MEDICARE ==
[2018-12-16 17:31] LABS: PERCENT SATURATION 27.2 % (19.7-50.0)
== END ==
LOC: M SFHCPLAZ 15:34
PROVIDERS: ATTEND Internal Medicine Infectious Disease
DX: N39.0 Urinary tract infection, site not specified (principal)

== ENCOUNTER 2018-12-27 08:22 | Outpatient (CLI) | payer OTHER, MEDICARE ==
[2018-12-27] VITALS (7 sets, daily range): BP systolic 147–169; BP diastolic 67–74
[~2018-12-27] VITALS: Ht 177.8 cm; Wt 86.3 kg
[2018-12-27] MEDS ORDERED: IRON SUCROSE 25 MG in NS 50 ML IV ONE (09:00)
[2018-12-27] MEDS ORDERED: IRON SUCROSE 475 MG in NS 250 ML IV ONE (09:00)
== END 2018-12-27 14:20 | disposition home or self-care (01) ==
LOC: M INFU 08:22
PROVIDERS: ATTEND Internal Medicine Nephrology
DX: D50.9 Iron deficiency anemia, unspecified (principal)
CPT/HCPCS: 96365; 96366; J1756

== ENCOUNTER → 2019-01-27 | Outpatient (REF) | payer OTHER, MEDICARE ==
[~2019-01-27] MED LIST changes: -FEBU40TA PO; +FEBU40TA4 PO; -INDO50CA11 PO; +INDO50CA91 PO
[2019-01-27 13:39] LABS: APPEARANCE, URINE HAZY (CLEAR); BACTERIA, URINE AUTO 1+ (NEGATIVE); BILIRUBIN, URINE AUTO NEGATIVE (NEGATIVE); BLOOD, URINE BLOOD NEGATIVE (NEGATIVE); COLOR, URINE YELLOW (YELLOW); GLUCOSE, URINE (UA) AUTO NEGATIVE (NEGATIVE); KETONE, URINE AUTO NEGATIVE (NEGATIVE); LEUKOCYTE ESTERASE, URINE AUTO 3+ (NEGATIVE); MUCUS, URINE SMALL (NEGATIVE); NITRITE, URINE AUTO NEGATIVE (NEGATIVE); PROTEIN, URINE AUTO 2+ mg/dL (NEGATIVE); RBC, URINE AUTO 2 /HPF (0-3); SQUAMOUS EPITHELIAL CELL UR AU 0 /HPF (0-6); UROBILINOGEN, URINE AUTO 0.2 mg/dL (0.0-2.0); WBC, URINE AUTO 160 /HPF (0-3)
== END ==
LOC: M SFHCPLAZ 11:54
PROVIDERS: ATTEND Internal Medicine Infectious Disease
DX: N39.0 Urinary tract infection, site not specified (principal)

== ENCOUNTER → 2019-02-22 | Outpatient (REF) | payer OTHER, MEDICARE ==
[2019-02-22 14:28] LABS: PERCENT SATURATION 52.5 % (19.7-50.0)
== END ==
LOC: M LAB REF 13:51
PROVIDERS: ATTEND Internal Medicine Nephrology
DX: D50.9 Iron deficiency anemia, unspecified (principal)

== ENCOUNTER → 2019-03-03 | Outpatient (CLI) | payer OTHER, MEDICARE ==
--- NOTE | 2019-03-03 15:37 | REP ---
BLADDER ULTRASOUND: Real-time sonographic evaluation of the bladder performed. The bladder is distended measuring 13.2 x 8.2 x 9.1 cm. Total volume is 516 mL. No mass or calculus is seen. Postvoid residual is 387 ml, 75% of the original volume. There are bilateral ureteral jets in the urinary bladder with Doppler evaluation. IMPRESSION: Significant postvoid residual. No bladder mass. Electronically Signed by Torres Reyes MD 03/03/2019 05:02 P
== END ==
LOC: M RAD 13:54
PROVIDERS: ATTEND Internal Medicine Nephrology
DX: R33.9 Retention of urine, unspecified (principal); R39.198 Other difficulties with micturition

== ENCOUNTER → 2019-03-14 | Outpatient (REF) | payer OTHER, MEDICARE | LOC: M LAB REF 17:05 | PROVIDERS: ATTEND Internal Medicine Nephrology | DX: N39.0 Urinary tract infection, site not specified (principal); N18.3 Chronic kidney disease, stage 3 (moderate); E11.22 Type 2 diabetes mellitus with diabetic chronic kidney disease ==

== ENCOUNTER → 2019-03-30 | Outpatient (CLI) | payer OTHER, MEDICARE ==
[~2019-03-30] MED LIST changes: -OMEP40CA2 PO; +OMEP40CA97 PO; +SENN-53 PO; -SENN1TAB40 PO
--- NOTE | 2019-03-30 15:15 | REP ---
URINARY BLADDER ULTRASOUND: Real-time sonographic evaluation of the urinary bladder performed. The bladder measures 14.7 x 8.8 x 9.2 cm for a total volume of 777 mL. No mass or calculus is seen. There are bilateral ureteral jets in the urinary bladder with Doppler color evaluation. Postvoid residual is 403 mL, which is 52% of the original volume. IMPRESSION: No bladder mass or calculus. Postvoid residual 52% as discussed above. Electronically Signed by Torres Reyes MD 03/30/2019 06:42 P
== END ==
LOC: M RAD 14:03
PROVIDERS: ATTEND Internal Medicine Nephrology
DX: R33.9 Retention of urine, unspecified (principal)

== ENCOUNTER → 2019-04-01 | Outpatient (REF) | payer OTHER, MEDICARE ==
[~2019-04-01] MED LIST changes: +OMEP40CA2 PO; -OMEP40CA97 PO; -SENN-53 PO; +SENN1TAB40 PO
[2019-04-01 17:41] LABS: PERCENT SATURATION 37.5 % (19.7-50.0)
== END ==
LOC: M LAB REF 16:46
PROVIDERS: ATTEND Internal Medicine Nephrology
DX: D50.9 Iron deficiency anemia, unspecified (principal)

== ENCOUNTER → 2019-05-31 | Outpatient (REF) | payer OTHER, MEDICARE ==
[~2019-05-31] MED LIST changes: -OMEP40CA2 PO; +OMEP40CA97 PO; +SENN-53 PO; -SENN1TAB40 PO
== END ==
LOC: M LAB REF 17:35
PROVIDERS: ATTEND Internal Medicine Nephrology
DX: D64.9 Anemia, unspecified (principal)

== ENCOUNTER 2019-06-01 10:29 | Outpatient (CLI) | payer OTHER, MEDICARE ==
[~2019-06-01] VITALS: Ht 177.8 cm; Wt 93.2 kg
[2019-06-01] VITALS (9 sets, daily range): BP systolic 128–158; BP diastolic 58–80
== END 2019-06-01 14:50 | disposition home or self-care (01) ==
LOC: M INFU 10:29
PROVIDERS: ATTEND Internal Medicine Nephrology
DX: D64.9 Anemia, unspecified (principal)
CPT/HCPCS: 36430; P9016

== ENCOUNTER → 2019-06-14 | Outpatient (REF) | payer OTHER, MEDICARE | LOC: M SMT 13:10 | PROVIDERS: ATTEND Urology | DX: N39.0 Urinary tract infection, site not specified (principal) ==

== ENCOUNTER → 2019-06-21 | Outpatient (REF) | payer OTHER, MEDICARE | LOC: M LAB REF 16:36 | PROVIDERS: ATTEND Internal Medicine Nephrology | DX: N18.9 Chronic kidney disease, unspecified (principal); D63.1 Anemia in chronic kidney disease ==

== ENCOUNTER 2019-06-23 09:50 | Outpatient (CLI) | payer OTHER ==
[~2019-06-23 09:50] MED LIST changes: -CIPR-249 PO; -ISOS30TA4 PO; -SODI650T PO; -VENTAER INH; +diphenhydrAMINE 25 MG CAP PO SCH
[2019-06-23 10:07] VITALS: BP 174/81
[2019-06-23] MEDS ORDERED: ACETAMINOPHEN 325 MG TAB PO ONE (10:45)
[2019-06-23 12:10] VITALS: BP 160/70
[2019-06-23 12:26] VITALS: BP 168/70
[2019-06-23 13:10] VITALS: BP 166/66
[2019-06-23 14:10] VITALS: BP 158/78
[2019-06-27] MEDS ORDERED: VENTAER INH (10:10)
[2019-06-27] MEDS ORDERED: CHLO25TA PO (10:10)
[2019-06-27] MEDS ORDERED: SODI650T PO (10:10)
[2019-06-27] MEDS ORDERED: ISOS30TA4 PO (10:10)
[2019-06-27] MEDS ORDERED: CIPR-249 PO (12:00)
== END 2019-06-23 15:12 | disposition home or self-care (01) ==
LOC: M OPCLI4PV 09:50 → M MSPAV 09:55 → M OPCLI4PV 15:12
PROVIDERS: ATTEND Internal Medicine Nephrology
DX: N18.9 Chronic kidney disease, unspecified (principal); D63.1 Anemia in chronic kidney disease
CPT/HCPCS: 36415; 36430; 86850; 86900; 86901; 86920; P9016

== ENCOUNTER → 2019-06-23 | Outpatient (CLI) | payer OTHER, MEDICARE ==
[~2019-06-23] MED LIST changes: +CIPR-249 PO; +ISOS30TA4 PO; +SODI650T PO; +VENTAER INH
--- NOTE | 2019-06-23 09:51 | REPPI ---
Clinical: Preoperative assessment . Comparison: 10/10/2018 . Technique: PA and lateral. Findings: The mediastinum and cardiac silhouette are normal. The lung dial are clear and without acute consolidation, effusion, or pneumothorax. The skeletal structures are intact and normal. Impression: 1. No acute cardiopulmonary process. Electronically Signed by Christopher Bautista MD 06/23/2019 09:43 A
[2019-06-23 13:40] LABS: HEMATOCRIT 26.4 % (42.0-52.0); HEMOGLOBIN 8.5 g/dl (13.5-17.5); MEAN CORPUSCULAR HEMOGLOBIN 29.7 pg (27.0-33.0); MEAN CORPUSCULAR HGB CONC 32.2 g/dl (32.0-36.5); MEAN CORPUSCULAR VOLUME 92.3 fl (80.0-96.0); PLATELET COUNT, AUTOMATED 239 10^3/uL (150-450); RED BLOOD COUNT 2.86 10^6/uL (4.30-6.10); WHITE BLOOD COUNT 7.2 10^3/uL (4.0-10.0)
[2019-06-23 13:51] LABS: INR 1.11
[2019-06-23 13:57] LABS: CALCIUM LEVEL 8.7 MG/DL (8.8-10.2); CREATININE FOR GFR 2.63 MG/DL (0.70-1.30); GLOMERULAR FILTRATION RATE 25.9 (>49); POTASSIUM SERUM 4.5 MEQ/L (3.5-5.1)
== END ==
LOC: M PLALAB 09:16 → M PLAIMG 09:16
PROVIDERS: ATTEND Urology
DX: Z01.810 Encounter for preprocedural cardiovascular examination (principal); D64.9 Anemia, unspecified

== ENCOUNTER → 2019-06-27 | Outpatient (CLI) | payer OTHER ==
[~2019-06-27] MED LIST changes: +CIPR-249 PO; +ISOS30TA4 PO; +SODI650T PO; +VENTAER INH; -diphenhydrAMINE 25 MG CAP PO SCH
[2019-06-27 17:41] LABS: HEMATOCRIT 28.8 % (42.0-52.0); HEMOGLOBIN 9.1 g/dl (13.5-17.5); MEAN CORPUSCULAR HEMOGLOBIN 29.1 pg (27.0-33.0); MEAN CORPUSCULAR HGB CONC 31.6 g/dl (32.0-36.5); PLATELET COUNT, AUTOMATED 242 10^3/uL (150-450); RED BLOOD COUNT 3.13 10^6/uL (4.30-6.10); WHITE BLOOD COUNT 5.1 10^3/uL (4.0-10.0)
== END ==
LOC: M PLALAB 13:17
PROVIDERS: ATTEND Urology
DX: D64.9 Anemia, unspecified (principal)

== ENCOUNTER 2019-06-29 11:11 | Day surgery (SDC) | payer OTHER, MEDICARE ==
[~2019-06-29] VITALS: Ht 177.8 cm; Wt 90.4 kg
[~2019-06-29 11:11] MED LIST changes: +LIDOCAINE 1% MDV 20ML VIAL SQ PRN; +LR 1,000 ML IV SCH; +ceFAZolin SOD 2 GM in IV 1 EA IV SCH
[2019-06-29] MEDS ORDERED: ceFAZolin SOD 2 GM in IV 1 EA IV ONE (12:15)
[2019-06-29] MEDS ORDERED: PROPOFOL 200 MG/20 ML VIAL As Ordered ONE (13:49)
[2019-06-29] MEDS ORDERED: ROCURONIUM BROMIDE 50 MG/5 ML VIAL As Ordered ONE (13:49)
[2019-06-29] MEDS ORDERED: LIDOCAINE 2% INJ 100 MG/5 ML SDV (FOR ANES.) As Ordered ONE (13:49)
[2019-06-29] MEDS ORDERED: ONDANSETRON 4MG/2ML VIAL (J2405) As Ordered ONE (13:51)
[2019-06-29] MEDS ORDERED: dexameTHASONE 4 MG/ML 1ML VIAL (J1100) As Ordered ONE (13:51)
[2019-06-29] MEDS ORDERED: fentaNYL 100 MCG/2 ML INJECTION (J3010) As Ordered ONE ×2 (14:16→15:54)
[2019-06-29] MEDS ORDERED: MIDAZOLAM INJ 2 MG/2 ML VIAL (J2250) As Ordered ONE (14:16)
[2019-06-29] MEDS ORDERED: CHLOROPROCAINE 2 % INJ PRES.FREE 20 ML VIAL (J2400) As Ordered ONE (16:27)
[2019-06-29] MEDS ORDERED: FUROSEMIDE 100 MG/10 ML VIAL (J1940) As Ordered ONE (16:27)
[2019-06-29] MEDS ORDERED: MORPHINE 2 MG/ML 1ML VIAL (J2270) IV PRN (17:15)
[2019-06-29] MEDS ORDERED: ONDANSETRON 4MG/2ML VIAL (J2405) IV PRN (17:15)
[2019-06-29] MEDS ORDERED: PERCOCET 5MG/325MG TAB PO PRN (17:15)
[2019-06-29] MEDS ORDERED: LR 1,000 ML IV SCH (17:15)
[2019-06-29] MEDS ORDERED: METOCLOPRAMIDE INJ 10MG/2ML VIAL (J2765) IV PRN (17:15)
[2019-06-29] MEDS ORDERED: LABETALOL HCL 100 MG/20 ML VIAL As Ordered ONE (17:20)
[2019-06-29] MEDS: fentaNYL 100 MCG/2 ML INJECTION (J3010) IV PRN ×4 (17:27→18:06)
[2019-06-29] MEDS: LABETALOL HCL 100 MG/20 ML VIAL IV SCH ×3 (17:27→17:55)
[2019-06-29 17:55] VITALS: BP 208/86
[2019-06-29] MEDS ORDERED: ACETAMINOPHEN TAB 650MG DOSE (2X325MG) PO PRN (18:16)
[2019-06-29 19:30] VITALS: BP 155/65
--- NOTE | 2019-06-30 07:57 | RO ---
DATE OF PROCEDURE: 06/29/2019 PREPROCEDURE DIAGNOSIS: Benign prostatic hyperplasia. POSTPROCEDURE DIAGNOSIS: Benign prostatic hyperplasia. PROCEDURE: Cystoscopy, Button transurethral electrovaporization of the prostate. SURGEON: Dr. Gabriel Worthington LINEN SORTER: None. ANESTHESIA: General. OPERATIVE INDICATIONS: This is a 69-year-old male with benign prostatic hyperplasia and bothersome lower urinary tract symptoms refractory to medical therapy. He was brought to the operating room today for the above listed procedure. DESCRIPTION OF PROCEDURE: The patient was brought to the operating room and general anesthesia was induced. Prophylactic antibiotics were infused. He was then placed in the dorsal lithotomy position and prepped and draped in the usual sterile fashion. At this point a resectoscope was inserted into the urethral meatus and advanced into the bladder using a visual obturator. Of note the patient had bilobar benign prostatic hyperplasia with a high riding bladder neck. At this point, I began vaporizing hyperplastic tissue circumferentially at the bladder neck and then on both lobes of disease. I kept doing this until there was a clear channel established. Throughout the procedure, I made sure not to vaporize close to the ureteral orifices or distal to verumontanum. Once satisfied that there was a wide open cannel hemostasis was obtained using a coagulation current. Once satisfied with hemostasis, this marked the conclusion of the procedure. The resectoscope was then removed and an #18-Cameroonian Mendoza catheter was inserted into the bladder. The balloon was filled with 15 mL of sterile water. The fluid drained clear out of the catheter at the end of the procedure. The catheter was then connected to gravity drainage, and this marked the conclusion of the procedure. The patient was then taken out of the dorsal lithotomy position, awakened from anesthesia and transported to the recovery room in stable condition. ESTIMATED BLOOD LOSS: 10 mL INTRAOPERATIVE COMPLICATIONS: None. SPECIMENS: None. PLAN: The patient will followup in clinic in a few days for catheter removal and voiding trial. BETZY
== END 2019-06-29 19:30 | disposition home or self-care (01) ==
LOC: M SDC 11:11
PROVIDERS: ATTEND Urology
DX: N40.1 Benign prostatic hyperplasia with lower urinary tract symptoms (principal); I10 Essential (primary) hypertension; I25.10 Atherosclerotic heart disease of native coronary artery without angina pectoris; E11.9 Type 2 diabetes mellitus without complications; G47.30 Sleep apnea, unspecified; J44.9 Chronic obstructive pulmonary disease, unspecified; F41.9 Anxiety disorder, unspecified; Z79.82 Long term (current) use of aspirin; Z87.891 Personal history of nicotine dependence; Z86.73 Personal history of transient ischemic attack (TIA), and cerebral infarction without residual deficits; Z79.899 Other long term (current) drug therapy
CPT/HCPCS: 52601; J0690; J1940; J2250; J2405; J3010

== ENCOUNTER → 2019-08-09 | Outpatient (REF) | payer OTHER, MEDICARE ==
[~2019-08-09] MED LIST changes: -LIDOCAINE 1% MDV 20ML VIAL SQ PRN; -LR 1,000 ML IV SCH; -ceFAZolin SOD 2 GM in IV 1 EA IV SCH
[2019-08-09 13:40] LABS: PERCENT SATURATION 37.5 % (19.7-50.0)
== END ==
LOC: M LAB REF 12:33
PROVIDERS: ATTEND Nurse Practitioner Family
DX: D50.9 Iron deficiency anemia, unspecified (principal)

== ENCOUNTER 2019-09-08 07:16 | Outpatient (CLI) | payer OTHER, MEDICARE ==
[~2019-09-08] VITALS: Ht 177.8 cm; Wt 90.9 kg
[2019-09-08] VITALS (8 sets, daily range): BP systolic 125–169; BP diastolic 60–78
== END 2019-09-08 12:00 | disposition home or self-care (01) ==
LOC: M INFU 07:16
PROVIDERS: ATTEND Internal Medicine Nephrology
DX: N18.9 Chronic kidney disease, unspecified (principal); D63.1 Anemia in chronic kidney disease
CPT/HCPCS: 36430; 86850; 86900; 86901; 86920; P9016

== ENCOUNTER → 2019-10-17 | Outpatient (REF) | payer OTHER, MEDICARE ==
[~2019-10-17] MED LIST changes: +VITA-243 PO; -VITA500T PO
[2019-10-17 17:39] LABS: PERCENT SATURATION 35.5 % (19.7-50.0)
== END ==
LOC: M LAB REF 16:49
PROVIDERS: ATTEND Nurse Practitioner Family
DX: D50.9 Iron deficiency anemia, unspecified (principal)

== ENCOUNTER → 2019-10-25 | Outpatient (CLI) | payer OTHER, MEDICARE | LOC: M LABSMTC 11:15 | PROVIDERS: ATTEND Anesthesiology | DX: Z01.812 Encounter for preprocedural laboratory examination (principal); Z11.59 Encounter for screening for other viral diseases ==

== ENCOUNTER → 2019-11-02 | Outpatient (CLI) | payer OTHER, MEDICARE | LOC: M LABSMTC 10:15 | PROVIDERS: ATTEND Anesthesiology | DX: Z01.818 Encounter for other preprocedural examination (principal); Z11.59 Encounter for screening for other viral diseases | CPT/HCPCS: C9803; U0002 ==

== ENCOUNTER 2019-11-04 09:23 | Day surgery (SDC) | payer OTHER, MEDICARE ==
[~2019-11-04] VITALS: Ht 177.8 cm; Wt 89.8 kg
[~2019-11-04 09:23] MED LIST changes: +LIDOCAINE 2% 100MG/5ML SDV (FOR ANES.) As Ordered ONE; +propofoL 200 MG/20 ML VIAL As Ordered ONE
[2019-11-04] MEDS: NS 1,000 ML IV ONE (09:41)
[2019-11-04] MEDS ORDERED: fentaNYL 100 MCG/2 ML INJECTION (J3010) As Ordered ONE (09:54)
[2019-11-04] MEDS ORDERED: propofoL 200 MG/20 ML VIAL As Ordered ONE (10:59)
[2019-11-04 11:50] VITALS: BP 146/64
--- NOTE | 2019-11-04 12:30 | ROOR ---
Patient Name: Christopher Isaac Procedure Date: 11/04/2019 10:27 AM Date of : 1950 Age: 69 Room: [facility] Gender: Male Note Status: Finalized Procedure: Small bowel enteroscopy Indications: Iron deficiency anemia secondary to chronic blood loss Providers: Nathanael Guy MD Referring MD: Sabino Mayers MD Requesting Provider: Medicines: Monitored Anesthesia Care Complications: No immediate complications. Procedure: Pre-Anesthesia Assessment: - Prior to the procedure, a History and Physical was performed, and patient medications and allergies were reviewed. The patient is competent. The risks and benefits of the procedure and the sedation options and risks were discussed with the patient. All questions were answered and informed consent was obtained. Patient identification and proposed procedure were verified by the physician, the nurse and the anesthesiologist in the procedure room. Mental Status Examination: alert and oriented. Airway Examination: normal oropharyngeal airway and neck mobility. Respiratory Examination: clear to auscultation. CV Examination: normal. Prophylactic Antibiotics: The patient does not require prophylactic antibiotics. Prior Anticoagulants: The patient has taken no previous anticoagulant or antiplatelet agents. ASA Grade Assessment: IV - A patient with severe systemic disease that is a constant threat to life. After reviewing the risks and benefits, the patient was deemed in satisfactory condition to undergo the procedure. The anesthesia plan was to use monitored anesthesia care (MAC). Immediately prior to administration of medications, the patient was re-assessed for adequacy to receive sedatives. The heart rate, respiratory rate, oxygen saturations, blood pressure, adequacy of pulmonary ventilation, and response to care were monitored throughout the procedure. The physical status of the patient was re-assessed after the procedure. The Colonoscope was introduced through the mouth, and advanced to the mid-jejunum. The small bowel enteroscopy was accomplished without difficulty. The patient tolerated the procedure well. Findings: LA Grade B (one or more mucosal breaks greater than 5 mm, not extending between the tops of two mucosal folds) esophagitis with no bleeding was found 40 cm from the incisors. Scattered moderate inflammation characterized by erythema, friability and granularity was found in the gastric antrum. Biopsies were taken with a cold forceps for Helicobacter pylori testing. Verification of patient identification for the specimen was done by the physician and nurse using the patient's name, date and medical record number. Estimated blood loss was minimal. A medium healed ulcer was found in the gastric body and in the prepyloric region of the stomach. The scar tissue was healthy in appearance. There was no evidence of significant pathology in the entire examined duodenum. A few angioectasias with stigmata of recent bleeding were found at 60 cm (distal to the pylorus). Coagulation for hemostasis using argon plasma at 0.8 liters/minute and 20 mckinley was successful. Impression: - LA Grade B reflux esophagitis. - Gastritis. Biopsied. - Scar in the gastric body and in the prepyloric region of the stomach. - Normal examined duodenum. - A few recently bleeding angioectasias in the jejunum. Treated with argon plasma coagulation (APC). Recommendation: - The patient will be observed post-procedure, until all discharge criteria are met. - Patient has a contact number available for emergencies. The signs and symptoms of potential delayed complications were discussed with the patient. Return to normal activities tomorrow. Written discharge instructions were provided to the patient. - High fiber diet. - Continue present medications. - Await pathology results. - No ibuprofen, naproxen, or other non-steroidal anti-inflammatory drugs. - Recommend acid suppression medication. - Use Pepcid (famotidine) 20 mg PO Twice daily ( take pattern attendant on empty stomach and at bedtime) for 3 months. - Check hemogram with white blood cell count and platelets and iron studies monthly. - Return to GI clinic in [facility] (address [address], [address], [place], [facility]) in 4 -- 6 weeks. Please call GI clinic @ [phone] for apppointment date and time. - Return to primary care physician. Nathanael Guy MD Nathanael Guy MD 11/04/2019 12:29:59 PM Electronically signed by Nathanael Guy MD Number of Addenda: 0 Note Initiated On: 11/04/2019 10:27 AM Estimated Blood Loss: Estimated blood loss was minimal.
--- NOTE | 2019-11-04 12:33 | ROOR ---
Patient Name: Christopher Isaac Procedure Date: 11/04/2019 10:28 AM Date of : 1950 Age: 69 Room: [facility] Gender: Male Note Status: Finalized Procedure: Colonoscopy Indications: Iron deficiency anemia secondary to chronic blood loss Providers: Nathanael Guy MD Referring MD: Sabino Mayers MD Requesting Provider: Medicines: Monitored Anesthesia Care Complications: No immediate complications. Procedure: Pre-Anesthesia Assessment: - Prior to the procedure, a History and Physical was performed, and patient medications and allergies were reviewed. The patient is competent. The risks and benefits of the procedure and the sedation options and risks were discussed with the patient. All questions were answered and informed consent was obtained. Patient identification and proposed procedure were verified by the physician, the nurse and the anesthesiologist in the procedure room. Mental Status Examination: alert and oriented. Airway Examination: normal oropharyngeal airway and neck mobility. Respiratory Examination: clear to auscultation. CV Examination: normal. Prophylactic Antibiotics: The patient does not require prophylactic antibiotics. Prior Anticoagulants: The patient has taken no previous anticoagulant or antiplatelet agents. ASA Grade Assessment: III - A patient with severe systemic disease. After reviewing the risks and benefits, the patient was deemed in satisfactory condition to undergo the procedure. The anesthesia plan was to use monitored anesthesia care (MAC). Immediately prior to administration of medications, the patient was re-assessed for adequacy to receive sedatives. The heart rate, respiratory rate, oxygen saturations, blood pressure, adequacy of pulmonary ventilation, and response to care were monitored throughout the procedure. The physical status of the patient was re-assessed after the procedure. The Colonoscope was introduced through the anus and advanced to the terminal ileum, with identification of the appendiceal orifice and IC valve. The colonoscopy was performed without difficulty. The patient tolerated the procedure well. The quality of the bowel preparation was good. The ileocecal valve, appendiceal orifice, and rectum were photographed. Scope insertion time was 3 minutes. Scope withdrawal time was 11 minutes. The total duration of the procedure was 14 minutes. Findings: The perianal and digital rectal examinations were normal. The terminal ileum appeared normal. A 4 mm polyp was found in the transverse colon. The polyp was sessile. The polyp was removed with a cold biopsy forceps. Resection and retrieval were complete. Verification of patient identification for the specimen was done by the physician and nurse using the patient's name, date and medical record number. Estimated blood loss was minimal. Multiple small and large-mouthed diverticula were found in the sigmoid colon. There was no evidence of diverticular bleeding. Non-bleeding external and internal hemorrhoids were found during retroflexion. The hemorrhoids were medium-sized. Impression: - The examined portion of the ileum was normal. - One 4 mm polyp in the transverse colon, removed with a cold biopsy forceps. Resected and retrieved. - Moderate diverticulosis in the sigmoid colon. There was no evidence of diverticular bleeding. - Non-bleeding external and internal hemorrhoids. Recommendation: - Patient has a contact number available for emergencies. The signs and symptoms of potential delayed complications were discussed with the patient. Return to normal activities tomorrow. Written discharge instructions were provided to the patient. - High fiber diet. - Continue present medications. - Use fiber, for example Citrucel, Fibercon, Konsyl or Metamucil. - Await pathology results. - Repeat colonoscopy in 5-10 years for surveillance of multiple polyps. - Telephone GI clinic for pathology results in 2 weeks. - Return to GI clinic in [facility] (address [address], [address], [place], [address]) in 4 -- 6 weeks. Please call GI clinic @ [phone] for apppointment date and time. - Return to primary care physician. Nathanael Guy MD Nathanael Guy MD 11/04/2019 12:32:56 PM Electronically signed by Nathanael Guy MD Number of Addenda: 0 Note Initiated On: 11/04/2019 10:28 AM Estimated Blood Loss: Estimated blood loss was minimal.
== END 2019-11-04 12:30 | disposition home or self-care (01) ==
LOC: M OPP 09:23
PROVIDERS: ATTEND Internal Medicine Gastroenterology
DX: K64.8 Other hemorrhoids (principal); D12.3 Benign neoplasm of transverse colon; K57.30 Diverticulosis of large intestine without perforation or abscess without bleeding; D50.0 Iron deficiency anemia secondary to blood loss (chronic); K21.0 Gastro-esophageal reflux disease with esophagitis; K29.70 Gastritis, unspecified, without bleeding; K31.89 Other diseases of stomach and duodenum; K55.21 Angiodysplasia of colon with hemorrhage; E11.9 Type 2 diabetes mellitus without complications; I50.9 Heart failure, unspecified; G47.30 Sleep apnea, unspecified; Z79.84 Long term (current) use of oral hypoglycemic drugs; Z79.899 Other long term (current) drug therapy
CPT/HCPCS: 44361; 44366; 45380; 88305; J3010

== ENCOUNTER → 2019-11-28 | Outpatient (REF) | payer OTHER, MEDICARE ==
[~2019-11-28] MED LIST changes: -LIDOCAINE 2% 100MG/5ML SDV (FOR ANES.) As Ordered ONE; -propofoL 200 MG/20 ML VIAL As Ordered ONE
[2019-12-02 18:15] LABS: PERCENT SATURATION 41.5 % (19.7-50.0)
== END ==
LOC: M LAB REF 17:52
PROVIDERS: ATTEND Nurse Practitioner Family
DX: D50.9 Iron deficiency anemia, unspecified (principal)

== ENCOUNTER → 2019-12-01 | Outpatient (CLI) | payer OTHER, MEDICARE | LOC: M LAB 11:00 | PROVIDERS: ATTEND Internal Medicine Nephrology | DX: D64.9 Anemia, unspecified (principal) ==

== ENCOUNTER 2019-12-02 07:15 | Outpatient (CLI) | payer OTHER, MEDICARE ==
[2019-12-02] VITALS (9 sets, daily range): BP systolic 160–195; BP diastolic 76–88
[~2019-12-02] VITALS: Ht 177.8 cm; Wt 89.8 kg
[~2019-12-02 07:15] MED LIST changes: +ACET650T61 PO; -AMLO10TA5 PO; +AMLO1TAB24 PO; +AMLO1TAB25 PO; -AMLO5TAB6 PO; -ASPI81TA85 PO; +ASPI81TA86 PO; +COLC0.6T47 PO; -COLC1TAB13 PO; +ISOS1TAB35 PO; -ISOS30TA4 PO; -TYLE650T35 PO
[2019-12-02] MEDS ORDERED: diphenhydrAMINE 25MG CAP PO ONE (07:30)
[2020-06-30] MEDS ORDERED: ISOS1TAB36 PO (09:54)
== END 2019-12-02 13:50 | disposition home or self-care (01) ==
LOC: M INFU 07:15
PROVIDERS: ATTEND Internal Medicine Nephrology
DX: N18.9 Chronic kidney disease, unspecified (principal); D63.1 Anemia in chronic kidney disease
CPT/HCPCS: 36430; P9016

== ENCOUNTER → 2020-01-31 | Outpatient (REF) | payer OTHER, MEDICARE ==
[~2020-01-31] MED LIST changes: -COLC0.6T47 PO; +COLC1TAB13 PO; -ISOS1TAB35 PO; +ISOS30TA4 PO
[2020-03-16 16:06] LABS: PERCENT SATURATION 20.4 % (19.7-50.0)
== END ==
LOC: M LAB REF 12:12
PROVIDERS: ATTEND Nurse Practitioner Family
DX: D50.9 Iron deficiency anemia, unspecified (principal)

== ENCOUNTER 2020-06-30 08:55 | Inpatient (IN) | payer OTHER, MEDICARE ==
[~2020-06-30] VITALS: Ht 182.9 cm; Wt 93.9 kg
[~2020-06-30 08:55] MED LIST changes: +COLC0.6T47 PO; -COLC1TAB13 PO
[2020-06-30] MEDS ORDERED: TAMSULOSIN 0.4 MG CAP PO SCH (09:00)
[2020-06-30] MEDS: ISOSORBIDE MON. (IMDUR) 60 MG XR TAB PO SCH ×2 (09:00→18:24)
[2020-06-30] MEDS ORDERED: FERR325T18 PO (09:54)
[2020-06-30] MEDS ORDERED: TAMS1CAP17 PO (09:54)
[2020-06-30] MEDS ORDERED: HYDR-3363 PO (09:54)
[2020-06-30] MEDS ORDERED: CLOP75TA2 PO (09:54)
[2020-06-30] MEDS ORDERED: AMLO1TAB25 PO (09:54)
[2020-06-30] MEDS ORDERED: ISOS60TA2 PO (09:54)
--- NOTE | 2020-06-30 09:57 | REP ---
INDICATION: Altered Mental Status COMPARISON: None. TECHNIQUE: Portable AP view of the chest FINDINGS: The mediastinum is within normal limits. The cardiac silhouette is upper limits of normal for portable technique. The lung dial are clear without acute consolidation, effusion, or pneumothorax. Skeletal structures are intact. IMPRESSION: No acute cardiopulmonary process appreciated. <Electronically signed by Christopher Bautista > 06/30/20 [id number]
--- NOTE | 2020-06-30 10:26 | REP ---
INDICATION: Altered Mental Status COMPARISON: 10/30/2018 TECHNIQUE: Axial noncontrast images from the skull base to the thoracic inlet with coronal reformations. This CT examination was performed using the following dose reduction techniques: Automated exposure control, adjustment of mA and/or kv according to the patient's size, and use of iterative reconstruction technique. FINDINGS: Evidence for prior right frontal craniotomy with underlying area of encephalomalacia remains stable. Age-related atrophy and microvascular ischemic changes are appreciated. The ventricles and sulci are symmetric. Reyes-white differentiation is maintained. There is no evidence for acute intracranial hemorrhage, mass/mass effect, pathology or infarction. No extra-axial fluid collection. Paranasal sinuses and mastoid air cells are clear. IMPRESSION: Prior right frontal craniotomy with underlying chronic encephalomalacia. Age related atrophy and microvascular ischemic changes. No acute intracranial hemorrhage, infarction, or mass/mass effect. <Electronically signed by Christopher Bautista > 06/30/20 [id number]
[2020-06-30 10:27] LABS: BASO % 0.4 % (0.0-1.0); EOS # 0.3 10^3/uL (0.0-0.5); EOS % 3.8 % (0.0-3.0); HEMATOCRIT 27.5 % (42.0-52.0); HEMOGLOBIN 8.8 g/dl (13.5-17.5); LYMPH # 0.7 10^3/uL (1.5-5.0); LYMPH % 8.2 % (24.0-44.0); MEAN CORPUSCULAR HEMOGLOBIN 28.9 pg (27.0-33.0); MEAN CORPUSCULAR VOLUME 90.2 fl (80.0-96.0); MONO # 0.4 10^3/uL (0.0-0.8); NEUTROPHILS % 81.7 % (36.0-66.0); PLATELET COUNT, AUTOMATED 222 10^3/uL (150-450); RED BLOOD COUNT 3.05 10^6/uL (4.30-6.10); WHITE BLOOD COUNT 8.5 10^3/uL (4.0-10.0)
[2020-06-30] MEDS ORDERED: **hydrALAZINE** 50 MG TAB PO ONE (10:30)
[2020-06-30] MEDS ORDERED: CARVedilol 12.5 MG TAB PO ONE (10:30)
[2020-06-30] MEDS ORDERED: CHLORTHALIDONE 25 MG TAB PO ONE (10:30)
[2020-06-30] MEDS ORDERED: amLODIPine 10 MG TAB PO ONE (10:30)
[2020-06-30 10:47] LABS: ACETAMINOPHEN LEVEL < 2.0 UG/ML (10.0-30.0); ALBUMIN 3.8 GM/DL (3.2-5.2); ALT/SGPT 31 U/L (12-78); BILIRUBIN,DIRECT 0.1 MG/DL (0.0-0.2); BILIRUBIN,TOTAL 0.3 MG/DL (0.2-1.0); BLOOD UREA NITROGEN 61 MG/DL (7-18); CALCIUM LEVEL 8.4 MG/DL (8.8-10.2); CARBON DIOXIDE LEVEL 23 MEQ/L (21-32); CHLORIDE LEVEL 109 MEQ/L (98-107); CPK CREATINE PHOSPHOKINASE 72 U/L (39-308); CREATININE FOR GFR 3.02 MG/DL (0.70-1.30); ETHYL ALCOHOL (ETHANOL) < 0.003 % (0.000-0.010); GLUCOSE, FASTING 198 MG/DL (70-100); MB/CK RELATIVE INDEX 4.17 (< OR =4); PHENYTOIN (DILANTIN) 4.6 UG/ML (10.0-20.0); POTASSIUM SERUM 5.3 MEQ/L (3.5-5.1); SALICYLATE LEVEL < 1.7 MG/DL (5.0-30.0); SODIUM LEVEL 138 MEQ/L (136-145); TOTAL PROTEIN 6.7 GM/DL (6.4-8.2); TROPONIN I < 0.02 NG/ML (< 0.10)
[2020-06-30 11:29] LABS: AMPHETAMINES LEVEL URINE NEGATIVE (NEGATIVE); BARBITURATES URINE NEGATIVE (NEGATIVE); BENZODIAZEPINES URINE NEGATIVE (NEGATIVE); CANNABINOIDS URINE NEGATIVE (NEGATIVE); COCAINE METABOLITE URINE NEGATIVE (NEGATIVE); METHADONE URINE NEGATIVE (NEGATIVE); OPIATES URINE NEGATIVE (NEGATIVE); PHENCYCLIDINE URINE NEGATIVE (NEGATIVE)
[2020-06-30] MEDS ORDERED: levETIRAcetam INJection 500 MG in D5W MINI-BAG PLUS 100 ML IV ONE (11:30)
[2020-06-30] MEDS ORDERED: TORS20TA2 PO (12:39)
[2020-06-30] MEDS ORDERED: CLON-412 PO (12:39)
[2020-06-30] MEDS ORDERED: ACETAMINOPHEN TAB 650MG DOSE (2X325MG) PO PRN (12:45)
[2020-06-30] MEDS ORDERED: HYDR100T PO (12:56)
[2020-06-30] MEDS ORDERED: ACET-683 PO (12:59)
[2020-06-30] MEDS ORDERED: ACETAMINOPHEN 500 MG TAB PO PRN (13:15)
[2020-06-30] MEDS ORDERED: hydrOXYzine 25 MG TAB PO PRN (13:15)
[2020-06-30] MEDS ORDERED: ALBUTEROL SULFATE 2.5 MG/0.5 ML INH NEB SOLN INH PRN (13:15)
--- NOTE | 2020-06-30 13:54 | HPEPDOC ---
[facility] Medical History & Physical Date of Admission Jun 30, 2020 Date of Service: Jun 30, 2020 History and Physical CHIEF COMPLAINT: Witnessed seizure HPI: 70-year-old M with past medical history of HTN, DM, ENEDINA, CAD, CKD Stage III, BPH, and history of a right frontal lobe hematoma discovered in June 2018 s/p resection by Neurosurgery at [facility] with pathology consistent with subacute infarction, and he was started maintained on Dilantin for seizures and has been on 300mg QHS without any witnessed seizures for almost 2 years until this morning, when he had a 3 minute tonic clonic seizure that was w itnessed by his who brought him to the ED. Of note, this occured in the setting of him having set up his own medication box recently and forgot to take his meds last night and this morning his found his meds to be disorganized in the box. He has not had any recent fever, chills, new out of the norm headaches, speech disturbances, asymmetrical weakness, abdominal pain, diarrhea, nausea, emesis, chest pain, palpitations or vision changes. Of note, she reports that he is due for a renal US in the outpatient setting tomorrow per Dr. Mayers who told them that he might need a stent? with worsening CKD. In the ED, he had hypertensive emergency given the seizure history and noted HTN to SBP 210s reporting that he had not taken any of his medications today. Dr. Reyes gave him his home coreg, hydral, amlodipine and clotharlidone with some mild improvement. Workup was notable for CT head that showed the known prior right frontal craniotomy associated chronic encephalomalacia without any evidence of acute bleeding, infarct or mass effect, CXR was without acute pathology, WBC 8.5, Hgb 8.8 platelets 222, na 138, K 5.3, Cr 3.02, glucose 198, troponin wnl and TSH 4.3. He is now being admitted to medicine for acute kidney injury on chronic kidney disease. Of note, Dr. Reyes spoke with Dr. Colindres who recommended 500mg Keppra IV once, and then 250mg BID PO Keppra in addition to his dilantin 300mg QHS until he is next evaluated by his outpatient neurologist at [facility]. Past Medical History HTN, DM, ENEDINA, CAD, CKD Stage III, BPH, and history of a right frontal lobe hematoma discovered in June 2018 s/p resection by Neurosurgery at [facility] with pathology consistent with subacute infarction, and he was started maintained on dilantin for seizures and has been on 300mg QHS without any witnessed seizures for almost 2 years until this morning Surgical History Bilateral carotid endarterectomies Right front lobe surgery Bilateral cataract surgery Social History Smoker: Denies Alcohol: Denies Drugs: denies Review of Systems Other systems 10 point review of systems was reviewed and otherwise negative except as noted in the HPI. Physical Examination General: No Acute Distress, awake, alert, AOx3 ENT: Atraumatic, Mucous membr. moist/pink Eyes: EOMI, anicteric, PERRLA, no injection Neck: supple Chest: CTAB Heart: RRR, Normal S1, Normal S2, no m/r/g Abdomen: Normoactive sounds, obese, soft, NTND Extremities: No LE edema, WWP Neuro: CN2-12 intact, speech clear without dysarthria, strength 5/5 in all four extremities with intact sensation. 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 These were the recommendations of Dr. Bernadine Henry of CHF with Preserved EF -Euvolemic at this time Left carotid artery stenosis s/p stenting -Cont ASA, plavix DVT Prophylaxis -SCDs/TEDs -heparin 5000u BID Vital Signs Vital Signs Date Time Temp Pulse Resp B/P (MAP) Pulse Ox O2 Delivery O2 Flow Rate FiO2 06/30/20 12:01 75 18 193/84 (120) 99 Room Air 06/30/20 09:16 96.9 Laboratory Data Labs 24H Laboratory Tests 2 06/30/20 09:53: Immature Granulocyte % (Auto) 0.9, Neutrophils (%) (Auto) 81.7H, Lymphocytes (%) (Auto) 8.2L, Monocytes (%) (Auto) 5.0, Eosinophils (%) (Auto) 3.8H, Basophils (%) (Auto) 0.4, Neutrophils # (Auto) 7.0, Lymphocytes # (Auto) 0.7L, Monocytes # (Auto) 0.4, Eosinophils # (Auto) 0.3, Basophils # (Auto) 0.0, Nucleated Red Blood Cells % (auto) 0.0, Anion Gap 6L, Glomerular Filtration Rate 22.0L, Calcium Level 8.4L, Total Bilirubin 0.3, Direct Bilirubin 0.1, Aspartate Amino Transf (AST/SGOT) 19, Alanine Aminotransferase (ALT/SGPT) 31, Alkaline Phosphatase 100, Ammonia < 10, Total Creatine Kinase 72, Creatine Kinase MB 3.0, Creatine Kinase MB Relative Index 4.17H, Troponin I < 0.02, Total Protein 6.7, Albumin 3.8, Albumin/Globulin Ratio 1.3, Thyroid Stimulating Hormone (TSH) 4.310H, Salicylates Level < 1.7L, Acetaminophen Level < 2.0L, Phenytoin ([place] n) Level 4.6L, Ethyl Alcohol Level < 0.003 06/30/20 10:51: Lactic Acid Level 1.2, Urine Opiates Screen NEGATIVE, Urine Methadone Screen NEGATIVE, Urine Barbiturates Screen NEGATIVE, Urine Phencyclidine Screen NEGATIVE, Urine Amphetamines Screen NEGATIVE, Urine Benzodiazepines Screen NEGATIVE, Urine Cocaine Metabolite Screen NEGATIVE, Urine Cannabinoids Screen NEGATIVE, Coronavirus (COVID-19)(PCR) NEGATIVE CBC/BMP Laboratory Tests 06/30/20 09:53 Home Medications Scheduled Amlodipine Besylate (Amlodipine Besylate) 10 Mg Tablet, 10 MG PO DAILY Aspirin (Aspirin EC) 81 Mg Tab, 81 MG PO DAILY Calcitriol (Rocaltrol) 0.25 Mcg Cap, 0.5 MCG PO DAILY MON-FRI Carvedilol (Carvedilol) 25 Mg Tablet, 50 MG PO BID Chlorthalidone (Chlorthalidone) 25 Mg Tablet, 25 MG PO DAILY Clopidogrel Bisulfate (Clopidogrel) 75 Mg Tablet, 75 MG PO DAILY BELIEVES HASN'T HAD IN A FEW DAYS (RAN OUT) Febuxostat (Uloric) 80 Mg Tablet, 80 MG PO DAILY Ferrous Sulfate (Ferrous Sulfate) 325 Mg Tablet, 325 MG PO DAILY Folic Acid (Folic Acid) 1 Mg Tablet, 1 MG PO DAILY Isosorbide Mononitrate (Isosorbide Mononitrate ER) 60 Mg Tab.er.24h, 60 MG PO BID Phenytoin Sodium Extended (Dilantin) 100 Mg Capsule, 300 MG PO QHS Ramelteon (Rozerem) 8 Mg Tablet, 8 MG PO QHS Sodium Bicarbonate (Sodium Bicarbonate) 650 Mg Tablet, 1,300 MG PO TID Tamsulosin Hcl (Tamsulosin HCl) 0.4 Mg Capsule, 0.4 MG PO DAILY takes one capsule daily hydrALAZINE HCL (Hydralazine HCl) 100 Mg Tablet, 100 MG PO TID Scheduled PRN Acetaminophen (Acetaminophen) 500 Mg Tablet, 1,000 MG PO Q6H PRN for PAIN Albuterol Sulf (Albuterol Sulfate) 2.5 Mg/3 Ml Vial.neb, 2.5 MG INH Q4HP PRN for SHORTNESS OF BREATH Hydroxyzine HCl (Hydroxyzine HCl) 25 Mg Tablet, 25 MG PO Q12H PRN for ITCHING Allergies Coded Allergies: No Known Allergies (Verified , 10/24/19) A-FIB/CHADSVASC A-FIB History Current/History of A-Fib/PAF?: No Current PO Anticoag Therapy: No Age/Risk Factor Scoring CHADSVASC: CHADSVASC Response (Comments) Value Age Risk Factor Age 65-74 years old 1 Gender Risk Factor Male 0 Hx of CHF No 0 Hx of HTN Yes 1 Hx of Stroke/TIA/or VTE No 0 Hx of Diabetes No 0 Hx of Vascular Disease Yes 1 Total 3 Treatment Treatment ordered: NONE Reason Anticoagulant not given: Not indicated/[id number] ADIEL SALDAÑA MD Jun 30, 2020 13:54
[2020-06-30] MEDS ORDERED: TAMSULOSIN 0.4 MG CAP PO ONE (14:30)
--- NOTE | 2020-06-30 14:33 | REP ---
INDICATION: RUSTY on CKD with hypertensive emergency and obstructive sx COMPARISON: 11/23/2018 TECHNIQUE: Real time powell scale ultrasound examination using curved array transducer. FINDINGS: The kidneys are normal in reniform shape and demonstrate increased central sinus fat consistent with chronic renal disease. There is no evidence for hydronephrosis, nephrolithiasis, cystic or renal mass lesion. Right kidney measures 10.0 x 5.3 x 5.3 cm. Left kidney measures 11.5 x 4.3 x 5.9 cm. The bladder is unremarkable and without wall thickening or mass lesion. Incidental cholelithiasis noted. IMPRESSION: 1. Chronic medical renal disease. No hydronephrosis. 2. Incidental cholelithiasis noted. <Electronically signed by Christopher Bautista > 06/30/20 1900
[2020-06-30] MEDS: SODIUM BICARBONATE 325 MG TAB PO SCH ×2 (16:00→20:54)
[2020-06-30 18:00] VITALS: BP 218/92
--- NOTE | 2020-06-30 18:03 | ECGEPIP ---
[facility] - ED Test Date: 2020-06-30 Pat Name: RADHA MONTES Department: Room: - Gender: Male [employer]ter: mookie : 1950 Requested By: Keara Romero Order Number: [id number] Reading MD: Keara Romero Measurements Intervals Winston Rate: 77 P: 75 UT: 235 QRS: -23 QRSD: 105 T: 45 QT: 382 QTc: 435 Interpretive Statements SINUS RHYTHM WITH FIRST DEGREE AV BLOCK LEFTWARD AXIS SEPTAL MYOCARDIAL INFARCTION, OF INDETERMINATE AGE PEAKED T WAVES v3-[address] T WAVE CHANGES CW 10/30/[address] T WAVE CHANGES Electronically Signed on 06-30-2020 18:03:16 EST by Keara Romero
[2020-06-30] MEDS: FERROUS SULFATE 325MG TAB PO SCH (18:16)
[2020-06-30] MEDS: FOLIC ACID 1 MG TAB PO SCH (18:17)
[2020-06-30] MEDS: **hydrALAZINE** 50 MG TAB PO SCH ×2 (18:17→20:53)
[2020-06-30] MEDS: CLOPIDOGREL 75 MG TAB PO SCH (18:18)
[2020-06-30] MEDS: ASPIRIN 81 MG ENTERIC TAB PO SCH (18:22)
[2020-06-30 20:00] VITALS: BP 168/79
[2020-06-30] MEDS: CARVedilol 12.5 MG TAB PO SCH (20:53)
[2020-06-30] MEDS: levETIRAcetam 250MG TABLET (KEPPRA) PO SCH (20:54)
[2020-06-30] MEDS: TAMSULOSIN 0.4 MG CAP PO SCH (20:54)
[2020-06-30] MEDS: HEPARIN SOD (PORCINE) 5000UNITS/ML 1ML VIAL/SYRINGE SC SCH (20:57)
[2020-06-30] MEDS ORDERED: RAMELTEON 8 MG TAB (ROZEREM) PO SCH (21:00)
[2020-06-30] MEDS ORDERED: PHENYTOIN ER 100 MG CAP PO SCH (21:00)
[2020-07-01] VITALS: BP 120/79
[2020-07-01 04:00] VITALS: BP 157/67
[2020-07-01 04:36] LABS: HEMATOCRIT 28.4 % (42.0-52.0); HEMOGLOBIN 8.7 g/dl (13.5-17.5); MEAN CORPUSCULAR HEMOGLOBIN 29.9 pg (27.0-33.0); MEAN CORPUSCULAR HGB CONC 30.6 g/dl (32.0-36.5); MEAN CORPUSCULAR VOLUME 97.6 fl (80.0-96.0); PLATELET COUNT, AUTOMATED 224 10^3/uL (150-450); RED BLOOD COUNT 2.91 10^6/uL (4.30-6.10); WHITE BLOOD COUNT 6.5 10^3/uL (4.0-10.0)
[2020-07-01 04:52] LABS: CALCIUM LEVEL 8.4 MG/DL (8.8-10.2); CREATININE FOR GFR 2.99 MG/DL (0.70-1.30); GLOMERULAR FILTRATION RATE 22.3 (>49); MAGNESIUM LEVEL 1.9 MG/DL (1.8-2.4); POTASSIUM SERUM 4.7 MEQ/L (3.5-5.1)
[2020-07-01 04:53] LABS: PERCENT SATURATION 26.4 % (19.7-50.0)
[2020-07-01 05:17] LABS: CREATININE,RANDOM URINE 62.8 MG/DL
--- NOTE | 2020-07-01 07:54 | CR ---
CONSULTATION DATE: 06/30/2020 REQUESTING PHYSICIAN: Dr. Juliana Alfaro CONSULTING PHYSICIAN: Dr. Joseph REASON FOR CONSULTATION: Management of acute renal failure. CHIEF COMPLAINT: The patient brought to the emergency room with a witnessed seizure. HISTORY OF PRESENT ILLNESS: Christopher Isaac is a 70-year-old male with past medical history of chronic renal disease stage 3, history of obstructive uropathy, well known to nephrology service from previous hospitalization. He follows up with Dr. Mayers and our nurse practitioner as outpatient. Multiple comorbidities as mentioned below. He has history of seizure disorder, no seizure activity for the last two years almost. However, today he was found to have almost three minutes of tonic-clonic seizures witnessed by his so he was brought to the emergency room. He was found to have hypertensive emergency in the ER. His blood pressures were in the 200s. He was not taking his medications at home. He was restarted on his home medications. He was also found to have acute renal failure with a creatinine of 3 and a potassium of 5.3. He was already scheduled to have an ultrasound of the kidney and bladder done in the morning because of worsening renal function. The patient was admitted under the hospitalist service with break-through seizures and acute kidney disease superimposed on chronic kidney disease. Nephrology service was called for further help in the management of this patient. The patient needed my immediate attention. I saw the patient [facility]. He was awake. He was unable to provide me with any recollection of events why he came to the emergency room. However, he is able to provide me with the rest of the history. PAST MEDICAL HISTORY: 1. Chronic kidney disease stage 3. 2. History of obstructive uropathy and BPH and requiring indwelling Mendoza catheter in the past. 3. Obstructive sleep apnea. 4. Diabetes mellitus type 2. 5. Hypertension. 6. Coronary artery disease. 7. History of right frontal lobe hematoma, resection in 2019. 8. History of seizure disorder maintained on Dilantin. PAST SURGICAL HISTORY: 1. Status post bilateral carotid endarterectomy. 2. History of right frontal lobectomy. 3. Bilateral cataract surgery. 4. History of cystoscopy in the past. He is not sure what sort of procedure was done on his prostate. ALLERGIES: No known drug allergies. FAMILY HISTORY: No significant family history of end-stage renal disease requiring hemodialysis. SOCIAL HISTORY: The patient lives at home with his . He denies any smoking, illicit drug abuse or alcohol abuse. REVIEW OF SYSTEMS: Constitutional: He denies any fevers or chills. Eyes: He denies any blurry vision, double vision. ENT: He denies any dysphagia, odynophagia. Cardiovascular: He denies any chest pain, palpitation. Respiratory: He denies any shortness of breath or cough. GI: He denies any nausea or vomiting. Genitourinary: He does report a history of BPH and difficulty with urination. Musculoskeletal: He denies any muscle aches and pains. Skin: He denies any rashes or ulcers. Endocrine: He denies any polyuria or polyphagia. Hematological/Oncological: He denies any easy bleeding or bruising. BANK BOSS: He reports that he had seizure activity today as reported by his . All other review of systems is negative. PHYSICAL EXAMINATION: GENERAL: The patient is awake, alert, oriented x3, lying in bed. VITAL SIGNS: Temperature is 97.5 degrees Fahrenheit, blood pressure 168/79, pulse is 72, respiratory rate of 20, saturating 98% on room air. HEAD AND NECK: Extraocular muscles are intact. Pupils are equally round and reactive to light. Mucous membranes are moist. Neck is supple. There is no JVD. CARDIOVASCULAR: S1, S2, regular rate. EXTREMITIES: No edema of the bilateral lower extremities. RESPIRATORY: Chest is clear to auscultation bilaterally, bilaterally currently no rales or rhonchi. ABDOMEN: Soft, positive bowel sounds, nontender, no organomegaly. GENITOURINARY: His bladder is palpable and he has suprapubic discomfort on deep palpation. I did his bedside bladder scan myself and there were more than 900 mL of postvoid residual urine. MUSCULOSKELETAL: No clubbing or cyanosis. Pulses are 2+. BANK BOSS: No focal deficits. 5/5 strength in all extremities. LABORATORY DATA: CBC showed a WBC of 8.5, hemoglobin 8.8. Platelets are 222. BMP showed sodium 138, potassium 5.3, chloride 109, bicarb 23, BUN 61, creatinine 3.02. Lactic acid is 1.2. Calcium is 8.4. Ammonia is less than 10. TSH is 4.3. Urine toxicology showed Dilantin was 4.6 which was low. The rest of the toxicology was negative. Microbiology: Blood cultures are negative. IMAGING: Renal ultrasound showed chronic medical renal disease. There was incidental cholelithiasis. Chest x-ray showed no acute cardiopulmonary process and CT scan of the head showed prior right frontal craniotomy and chronic encephalomalacia, age related atrophy. There was no acute intracranial hemorrhage. CURRENT INPATIENT MEDICATIONS: 1. The patient has been started on Keppra 500 mg IV x1 dose. 2. Tylenol p.r.n. 3. Albuterol p.r.n. 4. Amlodipine 10 mg p.o. daily. 5. Aspirin 81 mg daily. 6. Calcitriol 0.5 mcg Thursday, Thursday, Thursday, , Thursday. 7. Coreg 50 mg p.o. twice a day. 8. Chlorthalidone 25 mg p.o. daily. 9. Plavix 75 mg p.o. daily. 10. Uloric 80 mg p.o. daily. 11. Iron tablets 325 mg p.o. daily. 12. Folic acid 1 mg p.o. daily. 13. Hydralazine 100 mg p.o. three times a day. 14. Isosorbide 60 mg p.o. twice a day. 15. Dilantin 300 mg q.h.s. 16. Rozerem 8 mg q.h.s. 17. Sodium bicarbonate 1300 mg p.o. three times a day. 18. Flomax 0.4 mg p.o. twice a day. ASSESSMENT AND PLAN: 1. Acute kidney Injury superimposed on chronic kidney disease. The patient has significant urinary retention. He has history of Mendoza catheter placement in the past. He is refusing placement of the Mendoza catheter at this time. Continue Flomax at this time. 2. Hypertensive emergency. The patient came in with seizures and hypertension. He was restarted on his home medications. Blood pressures are getting better now. 3. Chronic metabolic acidosis. I am going to decrease the sodium bicarbonate tablet to twice a day. Bicarbonate level is within the acceptable range. 4. Secondary hyperparathyroidism. Continue current dose of calcitriol five days a week. PTH level is not available at this time. 5. Chronic gout secondary to chronic kidney disease. Continue current dose of Uloric 80 mg p.o. daily. 6. Breakthrough seizure. The patient had low Dilantin levels. He has been restarted on Dilantin 300 mg p.o. daily. He was also given a dose of Keppra. The rest of the management as per neurology recommendations. 7. BPH and urinary retention. The patient is refusing the Mendoza catheter placement. Continue Flomax. He will need to follow up with urology as outpatient. 8. Anemia and chronic kidney disease. I am going to check his iron level in the morning. If iron levels are low, he will be given IV iron. If iron levels are adequate, he will be started on NICOLASA once his blood pressures get better. Thank you for involving me in the care of this patient. I shall be happy to follow the patient along with you tomorrow morning. BETZY
[2020-07-01 08:00] VITALS: BP 142/72
--- NOTE | 2020-07-01 08:30 | REPVR ---
PROCEDURE INFORMATION: Exam: US Duplex Artery and Vein of the Abdominal and/or Reproductive Organs, Complete Kidneys Exam date and time: 07/01/2020 7:11 AM Age: 70 years old Clinical indication: Abdominal or pelvic symptoms: Bulmaro; Additional info: R/O frankie, HTN TECHNIQUE: Imaging protocol: Real-time duplex ultrasound scan of the arterial and venous flow with color Doppler flow and spectral waveform analysis with image documentation. Complete duplex exam focused on the kidneys. Duplex images required to evaluate vascular conditions. COMPARISON: No relevant prior studies available. FINDINGS: Peak systolic velocities within the RIGHT renal artery measure up to 70.6 cm/s. The renal artery/aortic systolic velocity ratio is 1.0 . Resistive index is 0.86, 0.88 and 0.87 in the upper, mid and lower pole. Acceleration time is 0.06 in the upper and midpole and 0.03 in the lower pole. Peak systolic velocities within the LEFT renal artery measure up to 65.1 cm/s. The renal artery/aortic systolic velocity ratio is 0.9 .Resistive index is 0.77, 0.82 and 0.78 in the upper, mid and lower pole. Acceleration time is 0.03 in the upper, midpole and the lower pole. The RIGHT kidney measures 9.4 cm in length. The LEFT kidney measuring 9.9 cm in length. There is no evidence of renal mass, calculus or hydronephrosis. There is a mild degree of renal parenchymal thinning bilaterally.There is renal cortical thinning and increased cortical echogenicity consistent with chronic medical renal disease. The peak systolic velocity in the aorta is 70.6 cm/s. IMPRESSION: No evidence of hemodynamically significant stenosis of the renal arteries. Abnormal values : RA/A ratio greater than 3.5.PSV GREATER than 200 cm/s.= 60% stenosis.RI > 0.8 and AT > 0.07 Electronically signed by: Mandeep Moncada On 07/01/2020 08:31:01 AM
[2020-07-01 08:38] VITALS: BP 142/72
[2020-07-01] MEDS: TAMSULOSIN 0.4 MG CAP PO SCH (08:38)
[2020-07-01] MEDS: levETIRAcetam 250MG TABLET (KEPPRA) PO SCH (08:38)
[2020-07-01] MEDS: CLOPIDOGREL 75 MG TAB PO SCH (08:38)
[2020-07-01 08:39] LABS: TOTAL PROTEIN,RANDOM URINE 201.1 MG/DL (0.0-12.0)
[2020-07-01] MEDS: **hydrALAZINE** 50 MG TAB PO SCH (08:39)
[2020-07-01] MEDS: ASPIRIN 81 MG ENTERIC TAB PO SCH (08:39)
[2020-07-01] MEDS: CARVedilol 12.5 MG TAB PO SCH (08:39)
[2020-07-01] MEDS: FOLIC ACID 1 MG TAB PO SCH (08:39)
[2020-07-01] MEDS: FERROUS SULFATE 325MG TAB PO SCH (08:40)
[2020-07-01] MEDS: HEPARIN SOD (PORCINE) 5000UNITS/ML 1ML VIAL/SYRINGE SC SCH (08:40)
[2020-07-01] MEDS: ISOSORBIDE MON. (IMDUR) 60 MG XR TAB PO SCH (08:40)
[2020-07-01] MEDS ORDERED: amLODIPine 10 MG TAB PO SCH (09:00)
[2020-07-01] MEDS ORDERED: SODIUM BICARBONATE 325 MG TAB PO SCH (09:00)
[2020-07-01] MEDS ORDERED: BICITRA 30ML SOLN UDC PO SCH (09:00)
[2020-07-01] MEDS ORDERED: CHLORTHALIDONE 25 MG TAB PO SCH (09:00)
[2020-07-01] MEDS ORDERED: FEBUXOSTAT 40 MG TABLET (ULORIC) PO SCH (09:00)
--- NOTE | 2020-07-01 10:14 | DS.PDOC ---
Discharge Summary General Date of Admission Jun 30, 2020 at 12:42 Date of Discharge 07/01/2020 Attending Physician: ADIEL SALDAÑA MD Discharge Summary PROCEDURES PERFORMED DURING STAY: None ADMITTING DIAGNOSES: RUSTY on CKD3 BPH with postobstructive symptoms Hypertensive urgency Seizure i/s/o missed doses of dilantin DISCHARGE DIAGNOSES: RUSTY on CKD3 BPH with postobstructive symptoms Hypertensive urgency Seizure i/s/o missed doses of dilantin History of R frontal lobe hemorrhagic stroke s/p craniotomy with residual stable encephalomalacia w/ hx of seizures on dilantin at baseline DM ENEDINA CAD COMPLICATIONS/CHIEF COMPLAINT: Acute Renal Failure. HISTORY OF PRESENT ILLNESS: 70-year-old M with past medical history of HTN, DM, ENEDINA, CAD, CKD Stage III, BPH, and history of a right frontal lobe hematoma discovered in June 2018 s/p resection by Neurosurgery at [facility] with pathology consistent with subacute infarction, and he was started maintained on Dilantin for seizures and has been on 300mg QHS without any witnessed seizures for almost 2 years until the morning of presentation, when he had a 3 minute tonic clonic seizure that was witnessed by his who brought him to the ED. Of note, this occurred in the setting of him having set up his own medication box recently and forgot to take his meds last night and this morning his found his meds to be disorganized in the box. He has not had any recent fever, chills, new out of the norm headaches, speech disturbances, asymmetrical weakness, abdominal pain, diarrhea, nausea, emesis, chest pain, palpitations or vision changes. Of note, she reports that he is due for a renal US in the outpatient setting tomorrow per Dr. Mayers who told them that he might need a stent? with worsening CKD. HOSPITAL COURSE: In the ED, he had hypertensive emergency given the seizure history and noted HTN to SBP 210s reporting that he had not taken any of his medications that day. Dr. Reyes gave him his home coreg, hydral, amlodipine and clotharlidone with some mild improvement. Workup was notable for CT head that showed the known prior right frontal craniotomy associated chronic encephalomalacia without any evidence of acute bleeding, infarct or mass effect, CXR was without acute pathology, WBC 8.5, Hgb 8.8 platelets 222, na 138, K 5.3, Cr 3.02, glucose 198, troponin wnl and TSH 4.3. He was admitted to medicine for acute kidney injury on chronic kidney disease. Of note, Dr. Reyes spoke with Dr. Colindres who recommended 500mg Keppra IV once, and then 250mg BID PO Keppra in addition to his dilantin 300mg QHS until he is next evaluated by his outpatient neurologist at [facility]. He did well overnight and given that he was due to renal US in the outpatient setting and had an RUSTY, I consulted nephrology and obtained the renal US with arterial doppler as well and he had no hydronephrosis and no significant stenoses noted. He was noted to have high PVRs i/s/o knowon BPH refused straight cath or riggins and I increased his flomax to BID dosing with improvement. He is now being discharged home to follow up with nephrology, PCP, neurology and urology. DISCHARGE MEDICATIONS: Please see below. ALLERGIES: Please see below. PHYSICAL EXAMINATION ON DISCHARGE: VITAL SIGNS: Please see below. General: No Acute Distress, awake, alert, AOx3 ENT: Atraumatic, Mucous membr. moist/pink Eyes: EOMI, anicteric, PERRLA, no injection Neck: supple Chest: CTAB Heart: RRR, Normal S1, Normal S2, no m/r/g Abdomen: Normoactive sounds, obese, soft, NTND Extremities: No LE edema, WWP Neuro: CN2-12 intact, speech clear without dysarthria, strength 5/5 in all four extremities with intact sensation. LABORATORY DATA: Please see below. IMAGING: Renal US: FINDINGS: The kidneys are normal in reniform shape and demonstrate increased central sinus fat consistent with chronic renal disease. There is no evidence for hydronephrosis, nephrolithiasis, cystic or renal mass lesion. Right kidney measures 10.0 x 5.3 x 5.3 cm. Left kidney measures 11.5 x 4.3 x 5.9 cm. The bladder is unremarkable and without wall thickening or mass lesion. Incidental cholelithiasis noted. IMPRESSION: 1. Chronic medical renal disease. No hydronephrosis. 2. Incidental cholelithiasis noted. Renal doppler study: FINDINGS: Peak systolic velocities within the RIGHT renal artery measure up to 70.6 cm/s. The renal artery/aortic systolic velocity ratio is 1.0 . Resistive index is 0.86, 0.88 and 0.87 in the upper, mid and lower pole. Acceleration time is 0.06 in the upper and midpole and 0.03 in the lower pole. Peak systolic velocities within the LEFT renal artery measure up to 65.1 cm/s. The renal artery/aortic systolic velocity ratio is 0.9 .Resistive index is 0.77, 0.82 and 0.78 in the upper, mid and lower pole. Acceleration time is 0.03 in the upper, midpole and the lower pole. The RIGHT kidney measures 9.4 cm in length. The LEFT kidney measuring 9.9 cm in length. There is no evidence of renal mass, calculus or hydronephrosis. There is a mild degree of renal parenchymal thinning bilaterally.There is renal cortical thinning and increased cortical echogenicity consistent with chronic medical renal disease. The peak systolic velocity in the aorta is 70.6 cm/s. IMPRESSION: No evidence of hemodynamically significant stenosis of the renal arteries. CXR: The mediastinum is within normal limits. The cardiac silhouette is upper limits of normal for portable technique. The lung dial are clear without acute consolidation, effusion, or pneumothorax. Skeletal structures are intact. IMPRESSION: No acute cardiopulmonary process appreciated. CT head: Evidence for prior right frontal craniotomy with underlying area of encephalomalacia remains stable. Age-related atrophy and microvascular ischemic changes are appreciated. The ventricles and sulci are symmetric. Reyes-white differentiation is maintained. There is no evidence for acute intracranial hemorrhage, mass/mass effect, pathology or infarction. No extra-axial fluid collection. Paranasal sinuses and mastoid air cells are clear. IMPRESSION: Prior right frontal craniotomy with underlying chronic encephalomalacia. Age related atrophy and microvascular ischemic changes. No acute intracranial hemorrhage, infarction, or mass/mass effect. PROGNOSIS: Good ACTIVITY: As tolerated DIET: Consistent carb, 2g sodium DISCHARGE PLAN: Home DISPOSITION: Home DISCHARGE INSTRUCTIONS: 1. Home to follow up with renal, neurology, urology and PCP. Increased flomax to BID ITEMS TO FOLLOWUP ON ON OUTPATIENT: Seizures - neurology RUSTY on CKD - nephrology BPH with obstructive symptoms - urology PCP DISCHARGE CONDITION: Stable TIME SPENT ON DISCHARGE: 47 minutes. Vital Signs/I&Os Vital Signs Date Time Temp Pulse Resp B/P (MAP) Pulse Ox O2 Delivery O2 Flow Rate FiO2 07/01/20 08:38 70 142/72 07/01/20 08:00 98.8 18 98 Room Air I&O- Last 24 Hours up to 6 AM 07/01/20 06:00 Intake Total 105 ml Output Total 2550 ml Balance -2445 ml Laboratory Data Labs 24H Laboratory Tests 2 06/30/20 10:51: Lactic Acid Level 1.2, Urine Opiates Screen NEGATIVE, Urine Methadone Screen NEGATIVE, Urine Barbiturates Screen NEGATIVE, Urine Phencyclidine Screen NEGATIVE, Urine Amphetamines Screen NEGATIVE, Urine Benzodiazepines Screen NEGATIVE, Urine Cocaine Metabolite Screen NEGATIVE, Urine Cannabinoids Screen NEGATIVE, Coronavirus (COVID-19)(PCR) NEGATIVE 07/01/20 03:38: Nucleated Red Blood Cells % (auto) 0.0, Anion Gap 8, Glomerular Filtration Rate 22.3L, Calcium Level 8.4L, Magnesium Level 1.9, Iron Level 51L, Total Iron Binding Capacity 193L, Transferrin % Saturation 26.4, Ferritin 411H 07/01/20 04:27: Urine Color YELLOW, Urine Appearance CLEAR, Urine pH 6.0, Urine Specific [place] 1.010, Urine Protein 3+H, Urine Glucose (UA) 1+H, Urine Ketones NEGATIVE, Urine Blood NEGATIVE, Urine Nitrite NEGATIVE, Urine Bilirubin NEGATIVE, Urine Urobilinogen 0.2, Urine Leukocyte Esterase NEGATIVE, Urine WBC (Auto) 2, Urine R BC (Auto) 0, Urine Hyaline Casts (Auto) 1, Urine Bacteria (Auto) NEGATIVE, Urine Squamous Epithelial Cells 0, Urine Sperm (Auto) , Urine Random Creatinine 62.8, Urine Random Total Protein 201.1H, Urine Random Sodium 78 CBC/BMP Laboratory Tests 07/01/20 03:38 Microbiology Microbiology 06/30/20 Blood Culture, Received Pending 06/30/20 Blood Culture, Received Pending Discharge Medications Scheduled Amlodipine Besylate (Amlodipine Besylate) 10 Mg Tablet, 10 MG PO DAILY, (Rep orted) Aspirin (Aspirin EC) 81 Mg Tab, 81 MG PO DAILY, (Reported) Calcitriol (Rocaltrol) 0.25 Mcg Cap, 0.5 MCG PO DAILY, (Reported) MON-FRI Carvedilol (Carvedilol) 25 Mg Tablet, 50 MG PO BID, (Reported) Chlorthalidone (Chlorthalidone) 25 Mg Tablet, 25 MG PO DAILY, (Reported) Clopidogrel Bisulfate (Clopidogrel) 75 Mg Tablet, 75 MG PO DAILY, (Reported) BELIEVES HASN'T HAD IN A FEW DAYS (RAN OUT) Febuxostat (Uloric) 80 Mg Tablet, 80 MG PO DAILY, (Reported) Ferrous Sulfate (Ferrous Sulfate) 325 Mg Tablet, 325 MG PO DAILY, (Reported) Folic Acid (Folic Acid) 1 Mg Tablet, 1 MG PO DAILY, (Reported) Isosorbide Mononitrate (Isosorbide Mononitrate ER) 60 Mg Tab.er.24h, 60 MG PO BID, (Reported) Phenytoin Sodium Extended (Dilantin) 100 Mg Capsule, 300 MG PO QHS, (Reported) Ramelteon (Rozerem) 8 Mg Tablet, 8 MG PO QHS, (Reported) Sodium Bicarbonate (Sodium Bicarbonate) 650 Mg Tablet, 1,300 MG PO TID, (Re ported) Tamsulosin Hcl (Tamsulosin HCl) 0.4 Mg Capsule, 0.4 MG PO DAILY, (Reported) takes one capsule daily hydrALAZINE HCL (Hydralazine HCl) 100 Mg Tablet, 100 MG PO TID, (Reported) Scheduled PRN Acetaminophen (Acetaminophen) 500 Mg Tablet, 1,000 MG PO Q6H PRN for PAIN, (Reported) Albuterol Sulf (Albuterol Sulfate) 2.5 Mg/3 Ml Vial.neb, 2.5 MG INH Q4HP PRN for SHORTNESS OF BREATH, (Reported) Hydroxyzine HCl (Hydroxyzine HCl) 25 Mg Tablet, 25 MG PO Q12H PRN for ITCHING, (Reported) Allergies Coded Allergies: No Known Allergies (Verified , 10/24/19) ADIEL SALDAÑA MD Jul 01, 2020 10:14
[2020-07-01] MEDS ORDERED: SODI650T PO (10:18)
[2020-07-01] MEDS ORDERED: TAMS1CAP17 PO (10:18)
[2020-07-01] MEDS ORDERED: KEPP250T5 PO (10:18)
--- NOTE | 2020-07-01 23:00 | IPN ---
NEPHROLOGY PROGRESS NOTE DATE: 07/01/2020 SUBJECTIVE: The patient was seen and examined at the bedside today morning. He is afebrile, hemodynamically stable. He refused to have the Mendoza catheter placed yesterday. He is intermittently trying to void. His renal function is stable. Creatinine is 2.9 today morning. Medical Team Hospitalist, Dr. Holly was also present at the bedside, talking to the patient and he was getting ready to be discharged. His blood pressure is better controlled today as compared with yesterday. OBJECTIVE: VITAL SIGNS: Temperature is 98.8 degrees Fahrenheit, blood pressure 14/272, pulse is 70, respiratory rate of 18, saturating 98% on room air. INTAKE AND OUTPUT: Urine output recorded as 2 liters yesterday, 525 mL so far today. Weight on the bed scale is 93.9 kg. PHYSICAL EXAMINATION: GENERAL APPEARANCE: The patient is awake, alert, oriented x3, laying in bed in no apparent distress. HEAD AND NECK: Extraocular muscles intact. Pupils are equally round and reactive to light. Mucous membranes are moist. Neck is supple. There is no jugular venous distention. CARDIOVASCULAR: S1, S2, regular rate. EXTREMITIES: No edema of the bilateral lower extremities. RESPIRATORY: Chest is clear to auscultation bilaterally. Bilaterally currently no rales or rhonchi. ABDOMEN: Soft, positive bowel sounds. GENITOURINARY: His bladder is palpable in the suprapubic region. MUSCULOSKELETAL: No clubbing, no cyanosis. Pulses are 2+. IGNITION MECHANIC: No focal deficits. Power is 5/5 in all extremities. LAB REVIEW: CBC showed a WBC of 6.5, hemoglobin 8.7, platelet count 224. BMP showed sodium 140, potassium 4.7, chloride 112, bicarbonate is 20, BUN is 65, creatinine is 2.9, it was 3 yesterday. Calcium 8.4. Iron is 51, TIBC 193, transferrin saturation 26.4, ferratin is 411. Microbiology: Blood cultures are negative so far. IMAGING: A renal artery Doppler was done. It showed no evidence of stenosis. CURRENT INPATIENT MEDICATIONS: The patient's medications were all reviewed by myself. No significant change in the medications today as compared with yesterday. I gave him Bicitra 10 mL p.o. three times daily. ASSESSMENT AND PLAN: 1. Acute kidney injury superimposed on chronic kidney disease it is most likely secondary to chronic retention. The patient is very resistant to placement of a Mendoza catheter. His Flomax dose was doubled. He was asked to frequently void. He will need to follow up with Urology as an outpatient. 2. Hypertensive urgency - The patient's blood pressures are better controlled. Continue current antihypertensive regimen on discharge. 3. Chronic metabolic acidosis the patient is requiring very high doses of sodium bicarbonate. He is getting 1,300 mg p.o. three times daily. I would recommend switching him to Bicitra. It will not affect his blood pressure. It will be done as an outpatient. 4. Secondary hyperparathyroidism - continue current dose of Calcitriol. 5. Anemia and chronic kidney disease iron levels are adequate. He will need to start NICOLASA as outpatient. 6. Disposition it is okay to discharge the patient from Nephrology's standpoint. MTDD
[2020-07-02] MEDS ORDERED: CALCITRIOL 0.25 MCG CAP (S0169) PO SCH (09:00)
== END 2020-07-01 12:38 | disposition home or self-care (01) | DRG 683 ==
LOC: EDBD 08:55 → M ED 08:55 → M ED INP 12:42 → M PCU 18:00
PROVIDERS: ADMIT Internal Medicine; ATTEND Internal Medicine
DX: N17.9 Acute kidney failure, unspecified (principal); E87.2 Acidosis; N18.30 Chronic kidney disease, stage 3 unspecified; N40.0 Benign prostatic hyperplasia without lower urinary tract symptoms; I16.0 Hypertensive urgency; G47.33 Obstructive sleep apnea (adult) (pediatric); I25.10 Atherosclerotic heart disease of native coronary artery without angina pectoris; Z91.14 Patient's other noncompliance with medication regimen; E11.9 Type 2 diabetes mellitus without complications; G40.409 Other generalized epilepsy and epileptic syndromes, not intractable, without status epilepticus; G93.89 Other specified disorders of brain; K80.20 Calculus of gallbladder without cholecystitis without obstruction; Z79.82 Long term (current) use of aspirin; Z79.899 Other long term (current) drug therapy; I12.9 Hypertensive chronic kidney disease with stage 1 through stage 4 chronic kidney disease, or unspecified chronic kidney disease; N25.81 Secondary hyperparathyroidism of renal origin; M10.30 Gout due to renal impairment, unspecified site; D63.1 Anemia in chronic kidney disease

== ENCOUNTER → 2020-08-08 | Outpatient (CLI) | payer OTHER, MEDICARE ==
[~2020-08-08] MED LIST changes: +CLON-412 PO; +CLOP75TA2 PO; +FERR325T18 PO; +HYDR-3363 PO; +HYDR100T PO; +ISOS1TAB35 PO; +ISOS1TAB36 PO; -ISOS30TA4 PO; +KEPP250T5 PO; +TAMS1CAP17 PO
== END ==
LOC: M LABSMTC 11:27
PROVIDERS: ATTEND Anesthesiology
DX: Z01.812 Encounter for preprocedural laboratory examination (principal); Z20.822 Contact with and (suspected) exposure to COVID-19

== ENCOUNTER → 2020-08-11 | Outpatient (CLI) | payer OTHER, MEDICARE ==
[2020-08-11 12:08] LABS: HEMATOCRIT 26.6 % (42.0-52.0); HEMOGLOBIN 8.5 g/dl (13.5-17.5); MEAN CORPUSCULAR HEMOGLOBIN 28.9 pg (27.0-33.0); MEAN CORPUSCULAR VOLUME 90.5 fl (80.0-96.0); PLATELET COUNT, AUTOMATED 287 10^3/uL (150-450); RED BLOOD COUNT 2.94 10^6/uL (4.30-6.10); WHITE BLOOD COUNT 6.1 10^3/uL (4.0-10.0)
[2020-08-11 12:17] LABS: INR 0.98; PROTHROMBIN TIME 13.2 SECONDS (12.5-14.3)
[2020-08-11 12:29] LABS: CALCIUM LEVEL 8.8 MG/DL (8.8-10.2); GLOMERULAR FILTRATION RATE 22.2 (>49); POTASSIUM SERUM 4.9 MEQ/L (3.5-5.1)
== END ==
LOC: M LAB 10:49
PROVIDERS: ATTEND Urology
DX: N40.1 Benign prostatic hyperplasia with lower urinary tract symptoms (principal); N32.0 Bladder-neck obstruction

== ENCOUNTER 2020-08-13 08:39 | Day surgery (SDC) | payer OTHER, MEDICARE ==
[~2020-08-13] VITALS: Ht 177.8 cm; Wt 95.3 kg
[~2020-08-13 08:39] MED LIST changes: +LR 1,000 ML IV ONE; +ceFAZolin SOD 2 GM in IV 1 EA IV ONE
--- OUTSIDE RECORDS SUMMARY | 2020-08-13 08:43 | CCD ---
Author Author [facility] Organization [facility] Address Unknown Phone Unavailable Care Team Providers Care Commodity Analyst Name Role Phone Flo Bates Unavailable PROBLEMS Type Condition ICD9-CM Code [id number] Code Onset Dates Condition S tatus SNOMED Code Notes Problem COPD (chronic obstructive pulmonary disease) J44.9 Active 07366046 Problem Hyperlipidemia E78.5 Active 75593471 Problem SOB (shortness of breath) R06.02 Active 166759 007 Problem Hx of gout Z87.39 Active 393651667 Problem HTN (hypertension) I10 Active 11024202 Problem Prostate cancer screening Z12.5 Active 138481 005 Problem Postop carotid endarterectomy surveillance, encounter for Z48.812 Active 802429449 Problem Chronic kidney failure N18.9 Active 16842306 Problem Urinary retention due to benign prostatic hyperplasia N28.89 Active 411764544 Problem Anemia secondary to renal failure D63.1 Active 660664942 Problem Chronic kidney disease, stage 3 (moderate) N18.3 Active 568164670 Problem Anemia D64.9 Active 892919516 Problem DM (diabetes mellitus) E11.9 Active 46866626 Problem Bladder neck contracture N32.0 Active 4964431 04 Problem Hx of acquired congestive heart failure Z86.79 Active 390208866 Problem BPH (benign prostatic hypertrophy) with urinary obstructio n N40.1 Active 138354958 Problem Preop testing Z01.818 Active 814713213 Problem UTI (urinary tract infection) N39.0 Active 68 469113 Problem 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 Yes with Women only REASON FOR REFERRAL No Information VITAL SIGNS No information MEDICATIONS Medication SIG (Take, Route, Frequency, Duration) Notes Start Da te End Date Status Flomax 0.4 MG 1 capsule Orally Once a day for 30 day(s) Active Levofloxacin 250 MG 1 tablet Orally Once a day for 7 days for 7 day(s ) Not-Taking Uloric 80 MG 11/2 tablet Orally Once a day Active Rozerem 8 MG 1 tablet at bedtime as needed Orally Once a day Active Nebulizer/Tubing/Mouthpiece _ as directed Apr, Active Aspir-81 81 MG 1 tablet Orally Once a day Active Carvedilol 25 MG 1 tablet with food Orally Twice a day Active Gemfibrozil 600 MG 1 tablet Orally Twice a day May, 3 Active Albuterol Sulfate (2.5 MG/3ML) 0.083% 3 ml Inhalation Three times a d ay Active Cephalexin 500 MG 1 capsule 1 hour prior to yo ur cystoscopy Orally Once for 1 days Jun, Not-Taking Lantus SoloStar 100 UNIT/ML 50units Subcutaneous Once a day Active Folic Acid 1 MG 1 tablet Orally Once a day for 30 day(s) Active HydrALAZINE HCl 50 MG 1 tablet with food Orally Three times a day Active Amlodipine 5mg 1 tab(s) oral daily A ctive Dilantin 100 MG 3 capsule Orally before bedtime Active Nebulizer/Adult Mask _ as directed Apr, Active Calcitriol 0.25 MCG 1 capsule Orally Once a day for 30 day(s) Active PROCEDURES No Information RESULTS No Results REASON FOR VISIT 07/13/2020 appt MEDICAL (GENERAL) HISTORY Type Description Date Medical History Type 2 DM Medical History HTN Medical History Gout Medical History Hyperlipidemia Medical History CKD 3 Medical History Anemia Medical History CHF Medical History COPD Surgical History Vascular Surgery 07/02/2015 Surgical History CYSTOSCOPY 10/2018 Surgical History BRAIN SURGERY.. [facility] Surgical History CYSTOSCOPY 05/31/2019 Surgical History TURP 06/29/19 Surgical History vascular surgery 02/2020 Surgical History cystoscopy 07/13/2020 Hospitalization History CHF -Admitted for 4 days 11/2013 Hospitalization History gout @ [facility] Hospitalization History UTI- 10/11/2018- 019 Hospitalization History TURP 06/29/2019 Hospitalization History seizures 06/2020 Goals Section No Information Health Concerns No Information MEDICAL EQUIPMENT No Information MENTAL STATUS No Information FUNCTIONAL STATUS No Information ASSESSMENTS No Information PLAN OF TREATMENT No Information Insurance Providers Payer Name Payer Address Payer Phone Insured Name Patient Relati onship to Insured Coverage Start Date Coverage End Date MEDICARE Part A and B [address] [facility] [phone] RADHA OMNTES [facility] [address] [address] [facility] [address] RADHA MONTES [id number]
--- OUTSIDE RECORDS SUMMARY | 2020-08-13 08:43 | CCD ---
Author Author [facility] Organization [facility] Address Unknown Phone Unavailable Care Team Providers Care Hone Operator Name Role Phone Kwaku Dobson Unavailable PROBLEMS Type Condition ICD9-CM Code [id number] Code Onset Dates Condition S tatus SNOMED Code Notes Problem Hyperlipidemia E78.5 Active 15393098 Problem Hx of gout Z87.39 Active 120216861 Problem COPD (chronic obstructive pulmonary disease) J44.9 Active 25229233 Problem Prostate cancer screening Z12.5 Active 882818 005 Problem SOB (shortness of breath) R06.02 Active 427207 007 Problem Chronic kidney failure N18.9 Active 30965074 Problem HTN (hypertension) I10 Active 00078394 Problem DM (diabetes mellitus) E11.9 Active 85854376 Problem Urinary retention due to benign prostatic hyperplasia N28.89 Active 937669509 Problem Anemia secondary to renal failure D63.1 Active 767488209 Problem Other obstructive and reflux uropathy N13.8 Ac tive 8748044 Problem Hx of acquired congestive heart failure Z86.79 Active 338574396 Problem Anemia D64.9 Active 938533239 Problem Postop carotid endarterectomy surveillance, encounter for Z48.812 Active 101173234 Problem Chronic kidney disease, stage 3 (moderate) N18.3 Active 748053614 Problem BPH (benign prostatic hypertrophy) with urinary obstructio n N40.1 Active 084844866 Problem Preop testing Z01.818 Active 540377386 Problem UTI (urinary tract infection) N39.0 Active 68 512830 ALLERGIES No Known Allergies ENCOUNTERS from 1950 to 2020-07-09 Encounter Location Date Provider Diagnosis [facility] [address] [place] [address] Jun Kwaku Dobson BPH (benign prostatic hypertrophy) with urinary obstruction N40.1 and Other obstructive and reflux uropathy N13.8 IMMUNIZATIONS No Information SOCIAL HISTORY Sex Assigned At : Social History Observation Description Sex Assigned At Unknown Education: Question Answer Notes Level of Education: Finished High School Sexual Hx: Question Answer Notes Had sex in the last 12 months (vaginal, oral, or anal)? Yes with Women only REASON FOR REFERRAL No Information VITAL SIGNS Weight 206 lbs Jun, Height 68.5 in Jun, BMI 30.86 kg/m2 Jun, Heart Rate 67 /min Jun, Respiratory Rate 16 /min Jun, Oximetry 98% Jun, Blood pressure systolic 118 mm Hg Jun, Blood pressure diastolic 68 mm Hg Jun, MEDICATIONS Medication SIG (Take, Route, Frequency, Duration) Notes Start Da te End Date Status Rozerem 8 MG 1 tablet at bedtime as needed Orally Once a day Active Folic Acid 1 MG 1 tablet Orally Once a day for 30 day(s) Active Nebulizer/Tubing/Mouthpiece _ as directed Apr, Active Cephalexin 500 MG 1 capsule 1 hour prior to yo ur cystoscopy Orally Once for 1 days Jun, Active Gemfibrozil 600 MG 1 tablet Orally Twice a day May, 3 Active Nebulizer/Adult Mask _ as directed Apr, Active HydrALAZINE HCl 50 MG 1 tablet with food Orally Three times a day Active Flomax 0.4 MG 1 capsule Orally Once a day for 30 day(s) Active Calcitriol 0.25 MCG 1 capsule Orally Once a day for 30 day(s) Active Lantus SoloStar 100 UNIT/ML 50units Subcutaneous Once a day Active Aspir-81 81 MG 1 tablet Orally Once a day Active Levofloxacin 250 MG 1 tablet Orally Once a day for 7 days for 7 day(s ) Not-Taking Amlodipine 5mg 1 tab(s) oral daily A ctive Uloric 80 MG 11/2 tablet Orally Once a day Active Carvedilol 25 MG 1 tablet with food Orally Twice a day Active Albuterol Sulfate (2.5 MG/3ML) 0.083% 3 ml Inhalation Three times a d ay Active Dilantin 100 MG 3 capsule Orally before bedtime Active PROCEDURES from 1950 to 2020-07-09 Procedure Date Ordered Result Body Site uro PVR (Post Voiding Residual) Bladder Scan 2020-07-03 N/A RESULTS No Results REASON FOR VISIT ER FU MEDICAL (GENERAL) HISTORY Type Description Date Medical History Type 2 DM Medical History HTN Medical History Gout Medical History Hyperlipidemia Medical History CKD 3 Medical History Anemia Medical History CHF Medical History COPD Surgical History Vascular Surgery 07/02/2015 Surgical History CYSTOSCOPY 10/2018 Surgical History BRAIN SURGERY.. [facility] Surgical History CYSTOSCOPY 05/31/2019 Surgical History TURP 06/29/19 Surgical History vascular surgery 02/2020 Hospitalization History CHF -Admitted for 4 days 11/2013 Hospitalization History gout @ [facility] Hospitalization History UTI- 10/11/2018- 019 Hospitalization History TURP 06/29/2019 Hospitalization History seizures 06/2019 Goals Section No Information Health Concerns No Information MEDICAL EQUIPMENT No Information MENTAL STATUS No Information FUNCTIONAL STATUS No Information ASSESSMENTS Encounter Date Diagnosis Assessment Notes Treatment Notes Treatm ent Clinical Notes Jun, BPH (benign prostatic hypert rophy) with urinary obstruction (ICD-10 - N40.1) PVR today is 139 cc. Discussed options of continuing to monitor PVR's on Flomax BID in 1 month or doing a cystoscopy to check for any scar tissue from previous TURP. He prefers to have another cystoscopy done. Procedure and consent reviewed and signed, abx sent. Jun, Other obstructive and reflux uropathy (ICD-10 - N13.8) PLAN OF TREATMENT Medication Medication Name Sig Start Date Stop Date Cephalexin 500 MG 1 capsule 1 hour prior to yo ur cystoscopy Orally Once for 1 days Jun, Treatment Notes Assessment Notes Clinical Notes BPH (benign prostatic hypertrophy) with urinary obstruction PVR today is 139 cc.Discussed options of continuing to monitor PVR's on Flomax BID in 1 month or doing a cystoscopy to check for any scar tissue from previous TURP. He prefers to have another cystoscopy done. Procedure and consent reviewed and signed, abx sent. Next Appt Details cystoscopy Reason:BPH Provider Name:Flo Bates, 2020-07-13 02:30:00 PM, [address], [place], [address], [facility] Providers Payer Name Payer Address Payer Phone Insured Name Patient Relati onship to Insured Coverage Start Date Coverage End Date MEDICARE Part A and B [address] [facility] [phone] RADHA MONTES [facility] [address] [address] [facility] [id number] RADHA MONTES [id number]
--- OUTSIDE RECORDS SUMMARY | 2020-08-13 08:43 | CCD ---
Author Author [facility] Organization [facility] Address Unknown Phone Unavailable Care Team Providers Care Rail Track Maintainer Name Role Phone Flo Bates Unavailable PROBLEMS Type Condition ICD9-CM Code [id number] Code Onset Dates Condition S tatus SNOMED Code Notes Problem COPD (chronic obstructive pulmonary disease) J44.9 Active 57657423 Problem Hyperlipidemia E78.5 Active 65742708 Problem SOB (shortness of breath) R06.02 Active 763543 007 Problem Hx of gout Z87.39 Active 791449435 Problem HTN (hypertension) I10 Active 99796083 Problem Prostate cancer screening Z12.5 Active 215483 005 Problem Postop carotid endarterectomy surveillance, encounter for Z48.812 Active 324199159 Problem Chronic kidney failure N18.9 Active 48219357 Problem Urinary retention due to benign prostatic hyperplasia N28.89 Active 825527364 Problem Anemia secondary to renal failure D63.1 Active 577331374 Problem Chronic kidney disease, stage 3 (moderate) N18.3 Active 024498763 Problem Anemia D64.9 Active 308204667 Problem DM (diabetes mellitus) E11.9 Active 94285371 Problem Bladder neck contracture N32.0 Active 9258554 04 Problem Hx of acquired congestive heart failure Z86.79 Active 691103026 Problem BPH (benign prostatic hypertrophy) with urinary obstructio n N40.1 Active 205775174 Problem Preop testing Z01.818 Active 103206115 Problem UTI (urinary tract infection) N39.0 Active 68 941535 Problem Other obstructive and reflux uropathy N13.8 Ac tive 1060883 ALLERGIES No Known Allergies ENCOUNTERS from 1950 to 2020-07-19 Encounter Location Date Provider Diagnosis [facility] [address] [place] [address] Jun Flo Bates BPH (benign prostatic hypertrophy) with urinary obstruction N40.1 ; Urinary retention due to benign prostatic hyperplasia N28.89 and Bladder neck contracture N32.0 IMMUNIZATIONS No Information SOCIAL HISTORY Sex Assigned At : Social History Observation Description Sex Assigned At Unknown Education: Question Answer Notes Level of Education: Finished High School Sexual Hx: Question Answer Notes Had sex in the last 12 months (vaginal, oral, or anal)? Yes with Women only REASON FOR REFERRAL No Information VITAL SIGNS Weight 212 lbs Jun, Height 68.5 in Jun, BMI 31.76 kg/m2 Jun, Heart Rate 77 /min Jun, Respiratory Rate 18 /min Jun, Oximetry 97 Jun, Blood pressure systolic 140 mm Hg Jun, Blood pressure diastolic 72 mm Hg Jun, MEDICATIONS Medication SIG (Take, [...] Information RESULTS No Results REASON FOR VISIT BPH MEDICAL (GENERAL) HISTORY Type Description Date Medical History Type 2 DM Medical History HTN Medical History Gout Medical History Hyperlipidemia Medical History CKD 3 Medical History Anemia Medical History CHF Medical History COPD Surgical History Vascular Surgery 07/02/2015 Surgical History CYSTOSCOPY 10/2018 Surgical History BRAIN SURGERY.. [facility] Surgical History CYSTOSCOPY 05/31/2019 Surgical History TURP 06/29/19 Surgical History vascular surgery 02/2020 Surgical History cystoscopy 07/13/2020 Hospitalization History CHF -Admitted for 4 days 11/2013 Hospitalization History gout @ [facility] Hospitalization History UTI- 10/11/2018- 019 Hospitalization History TURP 06/29/2019 Hospitalization History seizures 06/2020 Goals Section No Information Health Concerns No Information MEDICAL EQUIPMENT No Information MENTAL STATUS No Information FUNCTIONAL STATUS No Information ASSESSMENTS Encounter Date Diagnosis Assessment Notes Treatment Notes Treatm ent Clinical Notes Jun, BPH (benign prostatic hypert rophy) with urinary obstruction (ICD-10 - N40.1) Jun, Urinary retention due to mari ign prostatic hyperplasia (ICD-10 - N28.89) Jun, Bladder neck contracture (ICD-10 - N32.0) PLAN OF TREATMENT Treatment Notes Test Name Order Date CBC - Complete Blood Count 2020-07-19 Basic Metabolic Profile (BMP) 2020-07-19 PT & APTT 2020-07-19 URINE CULTURE 2020-07-19 Electrocardiogram (EKG) 2020-07-19 ADM CHEST 2 VIEW 2020-07-19 Medication: Lidocaine HCl 2% Jelly 5mL Intravesically 2020-07-19 Next Appt Details 2 weeks after transurethral resection an d incision of Reason: Insurance Providers Payer Name Payer Address Payer Phone Insured Name Patient Relati onship to Insured Coverage Start Date Coverage End Date [facility] [address] [address] [facility] [id number] RADHA MONTES [id number] MEDICARE Part A and B [address] [place] [id number] [phone] RADHA MONTES self
--- OUTSIDE RECORDS SUMMARY | 2020-08-13 08:43 | CCD | Continuity of Care Document ---
Author Christopher Bo DPM Organization Unknown Address [address] [place] [address], [address] [place] [address] Phone [phone] Care Team Providers Care Proposal Lead Writer Name Role Phone Sabino Mayers M.D. [phone] Problems Active Problems Provider Date Dystrophia unguium Sebastián Meier DPM Onset: 09/19/2017 Pain in limb Sebastián Meier DPM Onset: 09/19/2017 Type 2 diabetes mellitus Sebastián Meier DPM Onset: 018 Onychomycosis Sebastián Meier DPM Onset: 09/19/2017 Ingrowing nail Sebastián Meier DPM Onset: 09/19/2017 Social History Type Date Description Comments Sex Unknown ETOH Use Denies alcohol use quit alcohol last year after warning by Dr Victor hasdrunk beer most of his life Tobacco Use Start: Unknown End: Unknown Patient is a former smoker smoked 2ppd for 20 years Allergies, Adverse Reactions, Alerts Description No Known Drug Allergies Medications Active Medications SIG Qnty Indications Ordering Provide r Date Ammonium Lactate 12% Cream apply to feet daily 140gm Sebastián Meier DPM 07/24/2020 Hydralazine HCL 100mg Tablets Sabino Mayers MD Retacrit 04613Wrxg/ML Solution Unknown Sodium Bicarbonate 650mg Tablets Take Two Tablets By Mouth Three Times A Day Unknown Clopidogrel Bisulfate 75mg Tablets Take One Tablet By Mouth Every Day Unknown SPS 15GM/60ML Suspension Take 60ML By Mouth Once A Week Unknown Phenytoin Sodium Extended 100mg Ca psules Take Three Capsules By Mouth Every Day Unknown Hydrocodone-Acetaminophen 5-325mg Tablets Take One Tablet By Mouth Every 6 Hours as Needed For Pain Maximum Daily Dose Four Tablets Unknown Tamsulosin HCL 0.4mg Capsules Take Two Capsules By Mouth Every Day Unknown Ramelteon 8mg Tablets Take One Tablet By Mouth AT Bedtime Unknown Isosorbide Mononitrate ER 30mg Tablets ER 24HR Take One Tablet By Mouth Twice A Day Unkn own Chlorthalidone 25mg Tablets Sabino Mayers MD Peg-3350/Nacl/Na Bicarbonate/KCL 420gm Solution Rec Unknown Bisacodyl Ec 5mg Tablets DR Take 4 Tablets By Mouth Together as Per Bowel Prep Instructions Unknown Hydralazine HCL 50mg Tablets Take One Tablet By Mouth Three Times A Day Unknown Ciprofloxacin HCL 500mg Tablets Unknown Monurol 3gm Packet Use 3GM In 4 Ounces Of Water Once Weekly Unknown Cephalexin 500mg Capsules 1 By Mouth 1 Hour Prior To Cystoscopy Unknown 000 Lantus Solostar 100U nit/ML Solution Pen-Inject Sabino Mayers MD Torsemide 20mg Tablets Sabino Mayers MD Calcitriol 0.25mcg Capsules Sabino Mayers MD Minoxidil 2.5mg Tablets Sabino Mayers MD Uloric 80mg Tablets Sabino Mayers MD Albuterol Sulfate (2 .5mg/3ML) 0.083% Nebulizer Inhale 1 Vial Three Times A Day Via Nebulizer as Needed Unknown Ventolin HFA 108(90Base) mcg/Act A erosol Sabino Mayers MD Colcrys 0.6mg Tablets Sabino Mayers MD Gemfibrozil 600mg Tablets Sabino Mayers MD Amlodipine Besylate 10mg Tablets Annmarie Joseph M.D. Unifine Pentips 32G X 4 mm Misc Use as Directed With Lantus Solostar And Humalog Flexpen Four Times A Unknown Carvedilol 25mg Tablets Jarred HILLMAN [facility] Doxycycline Monohydrate 100mg Tablets Eddie Deleon RPA Prednisone 10mg Tablets Take 4 Tablets By Mouth Daily For 3 Days Then Take 3 Tablets Daily Fo Unknown Doxycycline Hyclate 100mg Tablets Take One Tablet By Mouth Every 12 Hours For 10 Days Unkno wn Ferrous Sulfate 325(65Fe) mg Table ts Take One Tablet By Mouth Every Other Day Unknown Pantoprazole Sodium 40mg Tablets D R Take One Tablet By Mouth Every Day Unknown Folic Acid 1mg Tablets Sabino Mayers MD Immunizations Description No Information Available Vital Signs Date Vital Result Comment 04/24/2020 2:05pm Height 70 inches 5'10" Weight 205.00 lb BP Systolic 180 mmHg BP Diastolic 84 mmHg Heart Rate 66 /min BMI (Body Mass Index) 29.4 kg/m2 09/17/2017 9:20am Height 70 inches 5'10" Weight 230.00 lb BP Systolic 147 mmHg BP Diastolic 88 mmHg Heart Rate 80 /min BMI (Body Mass Index) 33.0 kg/m2 Results Description No Information Available Procedures Description No Information Available Medical Devices Description No Information Available Encounters Type Date Location Provider Dx Diagnosis Office Visit 07/24/2020 2:00p [facility] Sebastián Meier DPM L60.0 Ingrowing nail M79.676 Pain in unspecified toe(s) E11.9 Type 2 diabetes mellitus wit hout complications Office Visit 04/24/2020 2:15p [facility] Sebastián Meier DPM L60.0 Ingrowing nail E11.9 Type 2 diabetes mellitus wit hout complications Assessments Date Code Description Provider 07/24/2020 L60.0 Ingrowing nail Sebastián Meier DPM 07/24/2020 M79.676 Pain in unspecified toe(s) Brain Meier DPM 07/24/2020 E11.9 Type 2 diabetes mellitus without complications Sebastián Meier DPM 04/24/2020 L60.0 Ingrowing nail Sebastián Meier DPM 04/24/2020 E11.9 Type 2 diabetes mellitus without complications Sebastián Meier DPM Plan of Treatment Future Appointment(s):* 10/23/2020 2:00 pm - Sebastián Meier DPM at [facility] Functional Status Description No Information Available Mental Status Description No Information Available Referrals Description No Information Available
--- OUTSIDE RECORDS SUMMARY | 2020-08-13 08:44 | CCD ---
Author Author [facility] Organization [facility] Address Unknown Phone Unavailable Care Team Providers Care Plaster Applicator Name Role Phone Macsherry, Hue NASCAR RACER Unavailable Unavailable Macsherry, Hue NASCAR RACER Unavailable Unavailable Macsherry, Hue NASCAR RACER Unavailable Unavailable Macsherry, Hue NASCAR RACER Unavailable Unavailable Macsherry, Hue NASCAR RACER Unavailable Unavailable Macsherry, Hue NASCAR RACER Unavailable Unavailable Macsherry, Hue NASCAR RACER Unavailable Unavailable Macsherry, Hue NASCAR RACER Unavailable Unavailable Macsherry, Hue NASCAR RACER Unavailable Unavailable Macsherry, Hue NASCAR RACER Unavailable Unavailable Macsherry, Hue NASCAR RACER Unavailable Unavailable Macsherry, Hue NASCAR RACER Unavailable Unavailable Macsherry, Hue NASCAR RACER Unavailable Unavailable Macsherry, Hue NASCAR RACER Unavailable Unavailable Macsherry, Hue NASCAR RACER Unavailable Unavailable Macsherry, Hue NASCAR RACER Unavailable Unavailable Macsherry, Hue NASCAR RACER Unavailable Unavailable Macsherry, Hue NASCAR RACER Unavailable Unavailable Macsherry, Hue NASCAR RACER Unavailable Unavailable Macsherry, Hue NASCAR RACER Unavailable Unavailable Macsherry, Hue NASCAR RACER Unavailable Unavailable Macsherry, Hue NASCAR RACER Unavailable Unavailable Macsherry, Hue NASCAR RACER Unavailable Unavailable Macsherry, Hue NASCAR RACER Unavailable Unavailable Ender HI MD Unavailable Unavailable ONDOCIN, Ender GARCIA MD Unavailable Unavailable ONDOCIN, Ender GARCIA MD Unavailable Unavailable ONDOCIN, Ender GARCIA MD Unavailable Unavailable ONDOCIN, Ender GARCIA MD Unavailable Unavailable ONDOCIN, Ender GARCIA MD Unavailable Unavailable ONDOCIN, Ender GARCIA MD Unavailable Unavailable ONDOCIN, Ender GARCIA MD Unavailable Unavailable ONDOCIN, Ender GARCAI MD Unavailable Unavailable ONDOCIN, Ender GARCIA MD Unavailable Unavailable ONDOCIN, Ender GARCIA MD Unavailable Unavailable ONDOCIN, Ender GARCIA MD Unavailable Unavailable ONDOCIN, Ender GARCIA MD Unavailable Unavailable ONDOCIN, Ender GARCIA MD Unavailable Unavailable ONDOCIN, Ender GARCIA MD Unavailable Unavailable ONDOCIN, Ender GARCIA MD Unavailable Unavailable ONDOCIN, Ender GARCIA MD Unavailable Unavailable ONDOCIN, Ender GARCIA MD Unavailable Unavailable ONDOCIN, Ender GARCIA MD Unavailable Unavailable ONDOCIN, Ender GARCIA MD Unavailable Unavailable ONDOCIN, Ender GARCIA MD Unavailable Unavailable ONDOCIN, Ender GARCIA MD Unavailable Unavailable ONDOCIN, Ender GARCIA MD Unavailable Unavailable ONDOCIN, Ender GARCIA MD Unavailable Unavailable ONDOCIN, Ender GARCIA MD Unavailable Unavailable ONDOCIN, Ender GARCIA MD Unavailable Unavailable ONDOCIN, Ender GARCIA MD Unavailable Unavailable ONDOCIN, Ender GARCIA MD Unavailable Unavailable ONDOCIN, Ender GARCIA MD Unavailable Unavailable ONDOCIN, Ender GARCIA MD Unavailable Unavailable ONDOCIN, Ender GARCIA MD Unavailable Unavailable ONDOCIN, Ender GARCIA MD Unavailable Unavailable ONDOCIN, Ender GARCIA MD Unavailable Unavailable ONDOCIN, Ender GARCIA MD Unavailable Unavailable ONDOCIN, Ender GARCIA MD Unavailable Unavailable ONDOCIN, Ender GARCIA MD Unavailable Unavailable ONDOCIN, Ender GARCIA MD Unavailable Unavailable ONDOCIN, Ender GARCIA MD Unavailable Unavailable ONDOCIN, Ender GARCIA MD Unavailable Unavailable ONDOCIN, Ender GARCIA MD Unavailable Unavailable ONDOCIN, Ender GARCIA MD Unavailable Unavailable ONDOCIN, Ender GARCIA MD Unavailable Unavailable ONDOCIN, Ender GARCIA MD Unavailable Unavailable ONDOCIN, Ender GARCIA MD Unavailable Unavailable ONDOCIN, Ender GARCIA MD Unavailable Unavailable ONDOCIN, Ender GARCIA MD Unavailable Unavailable ONDOCIN, Ender GARCIA MD Unavailable Unavailable ONDOCIN, Ender GARCIA MD Unavailable Unavailable ONDOCIN, Ender GARCIA MD Unavailable Unavailable ONDOCIN, Ender GARCIA MD Unavailable Unavailable ONDOCIN, Ender GARCIA MD Unavailable Unavailable ONDOCIN, Ender GARCIA MD Unavailable Unavailable ONDOCIN, Ender GARCIA MD Unavailable Unavailable ONDOCIN, Ender GARCIA MD Unavailable Unavailable ONDOCIN, Ender GARCIA MD Unavailable Unavailable ONDOCIN, Ender GARCIA MD Unavailable Unavailable ONDOCIN, Ender GARCIA MD Unavailable Unavailable ONDOCIN, Ender GARCIA MD Unavailable Unavailable ONDOCIN, T RADHA RIVAS Unavailable Unavailable ONDOCIN, T RADHA RIVAS Unavailable Unavailable ONDOCIN, T RADHA RIVAS Unavailable Unavailable ONDOCIN, T RADHA RIVAS Unavailable Unavailable ONDOCIN, T RADHA RIVAS Unavailable Unavailable ONDOCIN, Ender GARCIA MD Unavailable Unavailable ONDOCIN, Ender GARCIA MD Unavailable Unavailable ONDOCIN, T RADHA RIVAS Unavailable Unavailable ONDOCIN, T RADHA RIVAS Unavailable Unavailable ONDOCIN, Ender GARCIA MD Unavailable Unavailable ONDOCIN, Ender GARCIA MD Unavailable Unavailable ONDOCIN, Ender GARCIA MD Unavailable Unavailable Nadeem Stern MD Unavailable Unavailable Nadeem Stern MD Unavailable Unavailable Nadeem Stern MD Unavailable Unavailable Nadeem Stern MD Unavailable Unavailable Nadeem Stern MD Unavailable Unavailable Jaclyn Sterntech Unavailable Unavailable Jaclyn Sterntech Unavailable Unavailable Jorge Sternjtech Unavailable Unavailable Nadeem Stern MD Unavailable Unavailable Nadeem Stern MD Unavailable Unavailable Nadeem Stern MD Unavailable Unavailable Jorge Sternjtech Unavailable Unavailable Jorge Sternjgarrett RIVAS Unavailable Unavailable Jorge Sternjtech Unavailable Unavailable Nadeem Stern MD Unavailable Unavailable Jaclyn Sterntech Unavailable Unavailable Jaclyn Sterntech Unavailable Unavailable Jorge Sternjtech Unavailable Unavailable Jorge Sternjtech Unavailable Unavailable Jorge Sternjtech Unavailable Unavailable Jorge Sternjtech Unavailable Unavailable Nadeem Stern MD Unavailable Unavailable Jorge Sternjtech Unavailable Unavailable Nadeem Stern MD Unavailable Unavailable Jorge Sternjtech Unavailable Unavailable Jorge Sternjtech Unavailable Unavailable SleJorge reynagajtech Unavailable Unavailable Jorge Sternjtech Unavailable Unavailable Jorge Sternjtech Unavailable Unavailable Jorge Sternjgarrett RIVAS Unavailable Unavailable SleJaclyn reynagagarrett RIVAS Unavailable Unavailable SleyarikaNadeem MD Unavailable Unavailable SlezkaJaclyntech Unavailable Unavailable SleyarikaNadeem MD Unavailable Unavailable SleyarikaJorgejtech Unavailable Unavailable SleyarikaNadeem MD Unavailable Unavailable SleyarikaNadeem MD Unavailable Unavailable SleyarikaJaclyntech Unavailable Unavailable SleyarikaJaclyntech Unavailable Unavailable SleyarikaJaclyntech Unavailable Unavailable SleyarikaNadeem MD Unavailable Unavailable Jose MkaJaclyntech Unavailable Unavailable SonyazkaNadeem MD Unavailable Unavailable SlezkaJorgejtech Unavailable Unavailable SlezkaJorgejtech Unavailable Unavailable SonyazkaJorgejtech Unavailable Unavailable Jose MkaJaclyntech Unavailable Unavailable Jose MkaJaclyntech Unavailable Unavailable Nadeem Stern MD Unavailable Unavailable Jose MkaJorgejtech Unavailable Unavailable Jaclyn Sterntech Unavailable Unavailable Nadeem Stern MD Unavailable Unavailable Nadeem Stern MD Unavailable Unavailable Nadeem Stern MD Unavailable Unavailable Nadeem Stern MD Unavailable Unavailable Jose MkaJaclyntech Unavailable Unavailable Jaclyn Sterntech Unavailable Unavailable Jose MkaJaclyntech Unavailable Unavailable Fons, M Caryn PUBLIC IMPROVEMENT INSPECTOR Unavailable Unavailable Fons, M Caryn PUBLIC IMPROVEMENT INSPECTOR Unavailable Unavailable Fons, M Caryn PUBLIC IMPROVEMENT INSPECTOR Unavailable Unavailable Fons, M Caryn PUBLIC IMPROVEMENT INSPECTOR Unavailable Unavailable Fons, M Caryn PUBLIC IMPROVEMENT INSPECTOR Unavailable Unavailable Fons, M Caryn PUBLIC IMPROVEMENT INSPECTOR Unavailable Unavailable Fons, M Caryn PUBLIC IMPROVEMENT INSPECTOR Unavailable Unavailable Fons, M Caryn PUBLIC IMPROVEMENT INSPECTOR Unavailable Unavailable Fons, M Caryn PUBLIC IMPROVEMENT INSPECTOR Unavailable Unavailable Fons, M Caryn PUBLIC IMPROVEMENT INSPECTOR Unavailable Unavailable Fons, M Caryn PUBLIC IMPROVEMENT INSPECTOR Unavailable Unavailable Fons, M Caryn PUBLIC IMPROVEMENT INSPECTOR Unavailable Unavailable Fons, M Caryn PUBLIC IMPROVEMENT INSPECTOR Unavailable Unavailable Fons, M Caryn PUBLIC IMPROVEMENT INSPECTOR Unavailable Unavailable Fons, M Caryn PUBLIC IMPROVEMENT INSPECTOR Unavailable Unavailable Fons, M Caryn PUBLIC IMPROVEMENT INSPECTOR Unavailable Unavailable Fons, M Caryn PUBLIC IMPROVEMENT INSPECTOR Unavailable Unavailable Fons, M Caryn PUBLIC IMPROVEMENT INSPECTOR Unavailable Unavailable Fons, M Caryn PUBLIC IMPROVEMENT INSPECTOR Unavailable Unavailable Fons, M Caryn PUBLIC IMPROVEMENT INSPECTOR Unavailable Unavailable Fons, M Caryn PUBLIC IMPROVEMENT INSPECTOR Unavailable Unavailable Fons, M Caryn PUBLIC IMPROVEMENT INSPECTOR Unavailable Unavailable Fons, M Caryn PUBLIC IMPROVEMENT INSPECTOR Unavailable Unavailable Fons, M Caryn PUBLIC IMPROVEMENT INSPECTOR Unavailable Unavailable Fons, M Caryn PUBLIC IMPROVEMENT INSPECTOR Unavailable Unavailable Fons, M Caryn PUBLIC IMPROVEMENT INSPECTOR Unavailable Unavailable Fons, M Caryn PUBLIC IMPROVEMENT INSPECTOR Unavailable Unavailable Fons, M Caryn PUBLIC IMPROVEMENT INSPECTOR Unavailable Unavailable Fons, M Caryn PUBLIC IMPROVEMENT INSPECTOR Unavailable Unavailable Fons, M Caryn PUBLIC IMPROVEMENT INSPECTOR Unavailable Unavailable Fons, M Caryn PUBLIC IMPROVEMENT INSPECTOR Unavailable Unavailable Fons, M Caryn PUBLIC IMPROVEMENT INSPECTOR Unavailable Unavailable Fons, M Caryn PUBLIC IMPROVEMENT INSPECTOR Unavailable Unavailable Fons, M Caryn PUBLIC IMPROVEMENT INSPECTOR Unavailable Unavailable Fons, M Caryn PUBLIC IMPROVEMENT INSPECTOR Unavailable Unavailable Fons, M Caryn PUBLIC IMPROVEMENT INSPECTOR Unavailable Unavailable Fons, M Caryn PUBLIC IMPROVEMENT INSPECTOR Unavailable Unavailable Fons, M Caryn PUBLIC IMPROVEMENT INSPECTOR Unavailable Unavailable Fons, M Caryn PUBLIC IMPROVEMENT INSPECTOR Unavailable Unavailable Fons, M Caryn PUBLIC IMPROVEMENT INSPECTOR Unavailable Unavailable Fons, M Caryn PUBLIC IMPROVEMENT INSPECTOR Unavailable Unavailable Fons, M Caryn PUBLIC IMPROVEMENT INSPECTOR Unavailable Unavailable Fons, M Caryn PUBLIC IMPROVEMENT INSPECTOR Unavailable Unavailable Fons, M Caryn PUBLIC IMPROVEMENT INSPECTOR Unavailable Unavailable Fons, M Caryn PUBLIC IMPROVEMENT INSPECTOR Unavailable Unavailable Fons, M Caryn PUBLIC IMPROVEMENT INSPECTOR Unavailable Unavailable Fons, M Caryn PUBLIC IMPROVEMENT INSPECTOR Unavailable Unavailable Fons, M Caryn PUBLIC IMPROVEMENT INSPECTOR Unavailable Unavailable Fons, M Caryn PUBLIC IMPROVEMENT INSPECTOR Unavailable Unavailable Fons, M Caryn PUBLIC IMPROVEMENT INSPECTOR Unavailable Unavailable Fons, M Caryn PUBLIC IMPROVEMENT INSPECTOR Unavailable Unavailable Fons, M Caryn PUBLIC IMPROVEMENT INSPECTOR Unavailable Unavailable Fons, M Caryn PUBLIC IMPROVEMENT INSPECTOR Unavailable Unavailable Fons, M Caryn PUBLIC IMPROVEMENT INSPECTOR Unavailable Unavailable Fons, M Caryn PUBLIC IMPROVEMENT INSPECTOR Unavailable Unavailable SEMEL, Anastacio UHRTADO MD Unavailable Unavailable SEMEL, Anastacio HURTADO MD Unavailable Unavailable SEMEL, Anastacio HURTADO MD Unavailable Unavailable SEMEL, Anastacio HURTADO MD Unavailable Unavailable SEMEL, Anastacio HURTADO MD Unavailable Unavailable SEMEL, Anastacio HURTADO MD Unavailable Unavailable SEMEL, Anastacio HURTADO MD Unavailable Unavailable SEMEL, Anastacio HURTADO MD Unavailable Unavailable SEMEL, Anastacio HURTADO MD Unavailable Unavailable SEMEL, Anastacio HURTADO MD Unavailable Unavailable SEMEL, Anastacio HURTADO MD Unavailable Unavailable SEMEL, Anastacio HURTADO MD Unavailable Unavailable SEMEL, Anastacio HURTADO MD Unavailable Unavailable SEMEL, Anastacio HURTADO MD Unavailable Unavailable SEMEL, Anastacio HURTADO MD Unavailable Unavailable SEMEL, Anastacio HURTADO MD Unavailable Unavailable SEMEL, Anastacio HURTADO MD Unavailable Unavailable SEMEL, Anastacio HURTADO MD Unavailable Unavailable SEMEL, Anastacio HURTADO MD Unavailable Unavailable SEMEL, Anastacio HURTADO MD Unavailable Unavailable SEMEL, Anastacio HURTADO MD Unavailable Unavailable SEMEL, Anastacio HURTADO MD Unavailable Unavailable SEMEL, Anastacio HURTADO MD Unavailable Unavailable SEMEL, Anastacio HURTADO MD Unavailable Unavailable SEMEL, Anastacio HURTADO MD Unavailable Unavailable SEMEL, Anastacio HURTADO MD Unavailable Unavailable SEMEL, Anastacio HURTADO MD Unavailable Unavailable SEMEL, Anastacio HURTADO MD Unavailable Unavailable SEMEL, Anastacio HURTADO MD Unavailable Unavailable SEMEL, Anastacio HURTADO MD Unavailable Unavailable SEMEL, Anastacio HURTADO MD Unavailable Unavailable SEMEL, Anastacio HURTADO MD Unavailable Unavailable SEMEL, Anastacio HURTADO MD Unavailable Unavailable SEMEL, Anastacio HURTADO MD Unavailable Unavailable SEMEL, Anastacio HURTADO MD Unavailable Unavailable SEMEL, Anastacio HURTADO MD Unavailable Unavailable SEMEL, Anastacio HURTADO MD Unavailable Unavailable SEMEL, Anastacio HURTADO MD Unavailable Unavailable SEMEL, Anastacio HURTADO MD Unavailable Unavailable SEMEL, Anastacio HURTADO MD Unavailable Unavailable SEMEL, Anastacio HURTADO MD Unavailable Unavailable SEMEL, Anastacio HURTADO MD Unavailable Unavailable SEMEL, Anastacio HURTADO MD Unavailable Unavailable SEMEL, Anastacio HURTADO MD Unavailable Unavailable SEMEL, Anastacio HURTADO MD Unavailable Unavailable SEMEL, Anastacio HURTADO MD Unavailable Unavailable SEMEL, Anastacio HURTADO MD Unavailable Unavailable SEMEL, Anastacio HURTADO MD Unavailable Unavailable SEMEL, Anastacio HURTADO MD Unavailable Unavailable SEMEL, Anastacio HURTADO MD Unavailable Unavailable SEMEL, Anastacio HURTADO MD Unavailable Unavailable SEMEL, Anastacio HURTADO MD Unavailable Unavailable SEMEL, Anastacio HURTADO MD Unavailable Unavailable SEMEL, Anastacio HURTADO MD Unavailable Unavailable SEMEL, Anastacio HURTADO MD Unavailable Unavailable SEMEL, Anastacio HURTADO MD Unavailable Unavailable SEMEL, Anastacio HURTADO MD Unavailable Unavailable SEMEL, Anastacio HURTADO MD Unavailable Unavailable SEMEL, Anastacio HURTADO MD Unavailable Unavailable SEMEL, Anastacio HURTADO MD Unavailable Unavailable SEMEL, Anastacio HURTADO MD Unavailable Unavailable SEMEL, Anastacio HURTADO MD Unavailable Unavailable SEMEL, Anastacio HURTADO MD Unavailable Unavailable SEMEL, Anastacio HURTADO MD Unavailable Unavailable SEMEL, Anastacio HURTADO MD Unavailable Unavailable SEMEL, Anastacio HURTADO MD Unavailable Unavailable SEMEL, Anastacio HURTADO MD Unavailable Unavailable SEMEL, Anastacio HURTADO MD Unavailable Unavailable SEMEL, Anastacio HURTADO MD Unavailable Unavailable SEMEL, Anastacio HURTADO MD Unavailable Unavailable SEMEL, Anastacio HURTADO MD Unavailable Unavailable SEMEL, Anastacio HURTADO MD Unavailable Unavailable SEMEL, Anastacio HURTADO MD Unavailable Unavailable SEMEL, Anastacio HURTADO MD Unavailable Unavailable SEMEL, Anastacio HURTADO MD Unavailable Unavailable SEMEL, Anastacio HURTADO MD Unavailable Unavailable SEMEL, Anastacio HURTADO MD Unavailable Unavailable SEMEL, Anastacio HURTADO MD Unavailable Unavailable SEMEL, Anastacio HURTADO MD Unavailable Unavailable SEMEL, Anastacio HURTADO MD Unavailable Unavailable SEMEL, Anastacio HURTADO MD Unavailable Unavailable SEMEL, Anastacio HURTADO MD Unavailable Unavailable SEMEL, Anastacio HURTADO MD Unavailable Unavailable SEMEL, Anastacio HURTADO MD Unavailable Unavailable SEMEL, Anastacio HURTADO MD Unavailable Unavailable SEMEL, Anastacio HURTADO MD Unavailable Unavailable SEMEL, Anastacio HURTADO MD Unavailable Unavailable SEMEL, Anastacio HURTADO MD Unavailable Unavailable SEMEL, Anastacio HURTADO MD Unavailable Unavailable SEMEL, Anastacio HURTADO MD Unavailable Unavailable SEMEL, Anastacio HURTADO MD Unavailable Unavailable SEMEL, Anastacio HURTADO MD Unavailable Unavailable SEMEL, Anastacio HURTADO MD Unavailable Unavailable SEMEL, Anastacio HURTADO MD Unavailable Unavailable SEMEL, Anastacio HURTADO MD Unavailable Unavailable SEMEL, Anastacio HURTADO MD Unavailable Unavailable SEMEL, Anastacio HURTADO MD Unavailable Unavailable SEMEL, Anastacio HURTADO MD Unavailable Unavailable SEMEL, Anastacio HURTADO MD Unavailable Unavailable SEMEL, Anastacio HURTADO MD Unavailable Unavailable SEMEL, Anastacio HURTADO MD Unavailable Unavailable SEMEL, Anastacio HURTADO MD Unavailable Unavailable SEMEL, Anastacio HURTADO MD Unavailable Unavailable SEMEL, Anastacio HURTADO MD Unavailable Unavailable SEMEL, Anastacio HURTADO MD Unavailable Unavailable SEMEL, Anastacio HURTADO MD Unavailable Unavailable SEMEL, Anastacio HURTADO MD Unavailable Unavailable SEMEL, Anastacio HURTADO MD Unavailable Unavailable SEMEL, Anastacio HURTADO MD Unavailable Unavailable SEMEL, Anastacio HURTADO MD Unavailable Unavailable SEMEL, Anastacio HURTADO MD Unavailable Unavailable SEMEL, Anastacio HURTADO MD Unavailable Unavailable SEMEL, Anastacio HURTADO MD Unavailable Unavailable SEMEL, Anastacio HURTADO MD Unavailable Unavailable SEMEL, Anastacio HURTADO MD Unavailable Unavailable SEMEL, Anastacio HURTADO MD Unavailable Unavailable SEMEL, Anastacio HURTADO MD Unavailable Unavailable SEMEL, Anastacio HURTADO MD Unavailable Unavailable SEMEL, Anastacio HURTADO MD Unavailable Unavailable SEMEL, Anastacio HURTADO MD Unavailable Unavailable SEMEL, Anastacio HURTADO MD Unavailable Unavailable MAJAK, R WALLACE DPM Unavailable Unavailable MAJAK, R WALLACE DPM Unavailable Unavailable MAJAK, R WALLACE DPM Unavailable Unavailable MAJAK, R WALLACE DPM Unavailable Unavailable MAJAK, R WALLACE DPM Unavailable Unavailable MAJAK, R WALLACE DPM Unavailable Unavailable MAJAK, R WALLACE DPM Unavailable Unavailable MAJAK, R WALLACE DPM Unavailable Unavailable MAJAK, R WALLACE DPM Unavailable Unavailable MAJAK, R WALLACE DPM Unavailable Unavailable MAJAK, R WALLACE DPM Unavailable Unavailable MAJAK, R WALLACE DPM Unavailable Unavailable MAJAK, R WALLACE DPM Unavailable Unavailable MAJAK, R WALLACE DPM Unavailable Unavailable MAJAK, R WALLACE DPM Unavailable Unavailable MAJAK, R WALLACE DPM Unavailable Unavailable MAJAK, R WALLACE DPM Unavailable Unavailable MAJAK, R WALLACE DPM Unavailable Unavailable MAJAK, R WALLACE DPM Unavailable Unavailable MAJAK, R WALLACE DPM Unavailable Unavailable MAJAK, R WALLACE DPM Unavailable Unavailable MAJAK, R WALLACE DPM Unavailable Unavailable MAJAK, R WALLACE DPM Unavailable Unavailable MAJAK, R WALLACE DPM Unavailable Unavailable MAJAK, R WALLACE DPM Unavailable Unavailable MAJAK, R WALLACE DPM Unavailable Unavailable MAJAK, R WALLACE DPM Unavailable Unavailable VICTORIANO, R WALLACE DPM Unavailable Unavailable MAJAK, R WALLACE DPM Unavailable Unavailable MAJAK, R WALLACE DPM Unavailable Unavailable Ricketts, Jennifer Annabella PA Unavailable Unavailable Ricketts, Jennifer Annabella PA Unavailable Unavailable Ricketts, Jennifer Annabella PA Unavailable Unavailable Ricketts, Jennifer Annabella PA Unavailable Unavailable Ricketts, Jennifer Annabella PA Unavailable Unavailable Ricketts, Jennifer Annabella PA Unavailable Unavailable Ricketts, Jennifer Annabella PA Unavailable Unavailable Ricketts, Jennifer Annabella PA Unavailable Unavailable Ricketts, Jennifer Annabella PA Unavailable Unavailable Ricketts, Jennifer Annabella PA Unavailable Unavailable Ricketts, Jennifer Annabella PA Unavailable Unavailable Ricketts, Jennifer Annabella PA Unavailable Unavailable Ricketts, Jennifer Annabella PA Unavailable Unavailable Ricketts, Jennifer Annabella PA Unavailable Unavailable Ricketts, Jennifer Annabella PA Unavailable Unavailable Ricketts, Jennifer Annabella PA Unavailable Unavailable Ricketts, Jennifer Annabella PA Unavailable Unavailable Ricketts, Jennifer Annabella PA Unavailable Unavailable Ricketts, Jennifer Annabella PA Unavailable Unavailable Ricketts, Jennifer Annabella PA Unavailable Unavailable Ricketts, Jennifer Annabella PA Unavailable Unavailable Ricketts, Jennifer Annabella PA Unavailable Unavailable Ricketts, Jennifer Annabella PA Unavailable Unavailable Ricketts, Jennifer Annabella PA Unavailable Unavailable Ricketts, Jennifer Annabella PA Unavailable Unavailable Ricketts, Jennifer Annabella PA Unavailable Unavailable Ricketts, Jennifer Annabella PA Unavailable Unavailable Ricketts, Jennifer Annabella PA Unavailable Unavailable Ricketts, Jennifer Annabella PA Unavailable Unavailable Ricketts, Jennifer Annabella PA Unavailable Unavailable Ricketts, Jennifer Annabella PA Unavailable Unavailable Ricketts, Jennifer Annabella PA Unavailable Unavailable Ricketts, Jennifer Annabella PA Unavailable Unavailable Ricketts, Jennifer Annabella PA Unavailable Unavailable Ricketts, Jennifer Annabella PA Unavailable Unavailable Ricketts, Jennifer Annabella PA Unavailable Unavailable Ricketts, Jennifer Annabella PA Unavailable Unavailable Ricketts, Jennifer Annabella PA Unavailable Unavailable Ricketts, Jennifer Annabella PA Unavailable Unavailable Ricketts, Jennifer Annabella PA Unavailable Unavailable Ricketts, Jennifer Annabella PA Unavailable Unavailable Ricketts, Jennifer Annabella PA Unavailable Unavailable MIR, SALVADOR SHELLIE PA Unavailable Unavailable MIR, SALVADOR SHELLIE PA Unavailable Unavailable MIR, SALVADOR SHELLIE PA Unavailable Unavailable MIR, SALVADOR SHELLIE PA Unavailable Unavailable MIR, SALVADOR SHELLIE PA Unavailable Unavailable MIR, SALVADOR SHELLIE PA Unavailable Unavailable MIR, SALVADOR SHELLIE PA Unavailable Unavailable MIR, SALVADOR SHELLIE PA Unavailable Unavailable MIR, SALVADOR SHELLIE PA Unavailable Unavailable MIR, SALVADOR SHELLIE PA Unavailable Unavailable MIR, SALVADOR SHELLIE PA Unavailable Unavailable MIR, SALVADOR SHELLIE PA Unavailable Unavailable MIR, SALVADOR SHELLIE PA Unavailable Unavailable MIR, SALVADOR SHELLIE PA Unavailable Unavailable MIR, SALVADOR SHELLIE PA Unavailable Unavailable MIR, SALVADOR SHELLIE PA Unavailable Unavailable MIR, SALVADOR SHELLIE PA Unavailable Unavailable MIR, SALVADOR SHELLIE PA Unavailable Unavailable MIR, SALVADOR SHELLIE PA Unavailable Unavailable MIR, SALVADOR SHELLIE PA Unavailable Unavailable MIR, SALVADOR SHELLIE PA Unavailable Unavailable WALLACE MAGALLANES MD Unavailable Unavailable WALLACE MAGALLANES MD Unavailable Unavailable WALLACE MAGALLANES MD Unavailable Unavailable WALLACE MAGALLANES MD Unavailable Unavailable WALLACE MAGALLANES MD Unavailable Unavailable WALLACE MAGALLANES MD Unavailable Unavailable WALLACE MAGALLANES MD Unavailable Unavailable WALLACE MAGALLANES MD Unavailable Unavailable WALLACE MAGALLANES MD Unavailable Unavailable WALLACE MAGALLANES MD Unavailable Unavailable WALLACE MAGALLANES MD Unavailable Unavailable WALLACE MAGALLANES MD Unavailable Unavailable WALLACE MAGALLANES MD Unavailable Unavailable WALLACE MAGALLANES MD Unavailable Unavailable WALLACE MAGALLANES MD Unavailable Unavailable WALLACE MAGALLANES MD Unavailable Unavailable WALLACE MAGALLANES MD Unavailable Unavailable WALLACE MAGALLANES MD Unavailable Unavailable WALLACE MAGALLANES MD Unavailable Unavailable WALLACE MAGALLANES MD Unavailable Unavailable WALLACE MAGALLANES MD Unavailable Unavailable WALLACE MAGALLANES MD Unavailable Unavailable WALLACE MAGALLANES MD Unavailable Unavailable WALLACE MAGALLANES MD Unavailable Unavailable WALLACE MAGALLANES MD Unavailable Unavailable WALLACE MAGALLANES MD Unavailable Unavailable WALLACE MAGALLANES MD Unavailable Unavailable WALLACE MAGALLANES MD Unavailable Unavailable WALLACE MAGALLANES MD Unavailable Unavailable WALLACE MAGALLANES MD Unavailable Unavailable WALLACE MAGALLANES MD Unavailable Unavailable WALLACE MAGALLANES MD Unavailable Unavailable WALLACE MAGALLANES MD Unavailable Unavailable Re-disclosure Warning The records that you are about to access may contain information from federally-assisted alcohol or drug abuse programs. If such information is present, then the following federally mandated warning applies: This information has been disclosed to you from records protected by federal confidentiality rules (42 CFR part 2). The federal rules prohibit you from making any further disclosure of this information unless further disclosure is expressly permitted by the written consent of the person to whom it pertains or as otherwise permitted by 42 CFR part 2. A general authorization for the release of medical or other information is NOT sufficient for this purpose. The Federal rules restrict any use of the information to criminally investigate or prosecute any alcohol or drug abuse patient.The records that you are about to access may contain highly sensitive health information, the redisclosure of which is protected by Article 27-F of the [facility] Public Health law. If you continue you may have access to information: Regarding HIV / AIDS; Provided by facilities licensed or operated by the [facility] Office of Mental Health; or Provided by the [facility] Office for People With Developmental Disabilities. If such information is present, then the following [facility] mandated warning applies: This information has been disclosed to you from confidential records which are protected by state law. State law prohibits you from making any further disclosure of this information without the specific written consent of the person to whom it pertains, or as otherwise permitted by law. Any unauthorized further disclosure in violation of state law may result in a fine or nursing home sentence or both. A general authorization for the release of medical or other information is NOT sufficient authorization for further disc losure. Family History Family Member Name Family Member Gender Family Member Status Date o f Status Description Data Source(s) Unknown Male Problem [facility] ([facility] () - age 75 Encounters Encounter Providers Location Date Indications Data Source(s ) Outpatient Attender: WALLACE PASTRANA [facility] Office 07/2020 01:00:00 PM EST [facility] ([facility] (Cyst[facility]) Urology [address] [place] [address] 07/13/2020 12:00:00 AM EST eCW1 ([facility]) Unknown [address] [facility], [facility] [phone] 07/11/2020 12:00:00 AM EST eCW1 ([facility]) Outpatient [address] [facility] [id number] 07/03/2020 12:00:00 AM EST eCW1 ([facility]) Outpatient Attender: WALLACE PASTRANA [facility] 1108/2019 01:15:00 PM EST [facility] ([facility] Office Visit Attender: BRYANT ALBRECHT MD Main Office 02/17/2020 12 :30:00 PM EDT [facility] ([facility]) Outpatient Referrer: BRYANT ALBRECHT MD MOB-MOB.PAT 01/20 12:00:00 AM EDT - 01/30/2020 07:13:49 AM EDT [facility] Outpatient Attender: BRYANT ALBRECHT MDReferrer: BRYANT MCMAHON MD MOB-MOB.PAT 01/30/2020 12:00:00 AM EDT - 01/30/2020 09:10:09 AM EDT [facility] [address] [place] [phone] 01/30/2020 12:00:00 AM EDT eCW1 ([facility]) Outpatient Attender: BRYANT ALBRECHT MDReferrer: BRYANT MCMAHON MD MOB-MOB.PAT 11/16/2019 08:52:37 AM EDT - 11/16/2019 10:09:12 AM EDT [facility] Outpatient Attender: Caryn RAMIREZ.[email or web address] 0 12:00:00 AM EDT - 11/16/2019 02:12:24 PM EDT [facility] Inpatient Attender: BRYANT ALBRECHT MDAdmitter: BRYANT MCMAHON MD [id number] 10/27/2019 03:40:03 PM EDT - 02/05/2020 12:28:00 PM EDT [facility] Patient discharged. Outpatient Attender: BRYANT ALBRECHT MD Main Office 10/26/2019 11:15:0 0 AM EDT [facility] ([facility]) Outpatient Attender: BRYANT TINOCOeferrer: BRYANT MCMAHON MD [id number].MRI 10/21/2019 01:09:00 PM EDT - 10/21/2019 11:59:00 PM EDT [facility] Patient discharged. OFFICE OUTPATIENT NEW 30 MINUTES Attender: WALLACE MAGALLANES MD Ph ysical Therapy 09/01/2019 08:45:00 AM EDT [facility] ([facility]) Emergency Attender: SHELLIE Danielserrer: Hue Woodard acsherry [employer] 08/30/2019 12:02:00 PM EDT - 08/30/2019 02:01:00 PM EDT [facility] Patient discharged. [facility] [address] [place], [place] [id number] 07/28/2019 12:00:00 AM EST eCW1 ([facility]) [facility] [address] [place], [place] [id number] 07/20/2019 12:00:00 AM EST eCW1 ([facility]) [facility] [address] [place], [place] [id number] 07/07/2019 12:00:00 AM EST eCW1 ([facility]) [facility] [address] [place], [place] [id number] 07/06/2019 12:00:00 AM EST eCW1 ([facility]) [facility] [address] [place], [place] [id number] 07/05/2019 12:00:00 AM EST eCW1 ([facility]) [facility] [address] [place], [place] [id number] 07/05/2019 12:00:00 AM EST eCW1 ([facility]) Outpatient Referrer: RADHA HI MD 07/01/2019 11:39:00 AM EST [facility] [address] [place] [phone] 06/28/2019 12:00:00 AM EST eCW1 ([facility]) Outpatient Referrer: Vojgarrett RAMIREZ.[facility]-S[facility].TOM 08/2019 12:00:00 AM EST [facility] [address] [place] [phone] 06/23/2019 12:00:00 AM EST eCW1 ([facility]) [facility] [address] [place] [phone] 06/21/2019 12:00:00 AM EST eCW1 ([facility]) [facility] [address] [place] [phone] 06/17/2019 12:00:00 AM EST eCW1 ([facility]) [facility] [address] [place] [phone] 06/16/2019 12:00:00 AM EST eCW1 ([facility]) Outpatient Attender: Nadeem RAMIREZ.TOM-[email or web address].TOM 05/22 12:00:00 AM EST - 06/06/2019 11:10:58 AM EST [facility] Outpatient Attender: Annabella Salinaser: [facility] 03/15/2017 09:49:00 AM EDT - 03/15/2017 09:49:00 AM [facility] Medications Medication Brand Name Start Date Product Form Dose Route Admi nistrative Instructions Pharmacy Instructions Status Indications Reaction Description Data Source(s) 8 mg 08/07/2020 12:00:00 AM EST tablet 90 TAKE ONE TABLET BY MOUTH AT BEDTIME TAKE ONE TABLET BY MOUTH AT BEDTIME SOLD: 08/08/2020 [facility] 80 mg 08/06/2020 12:00:00 AM EST tablet 135 TAKE ONE AND ONE-HALF TABLETS BY MOUTH EVERY DAY TAKE ONE AND ONE-HALF TABLETS BY MOUTH EVERY DAY SOLD: 08/08/2020 [facility] 250 mg 07/30/2020 12:00:00 AM EST tablet 180 TAKE ONE TABLET BY MOUTH TWICE A DAY TAKE ONE TABLET BY MOUTH TWICE A DAY SOLD: 08/01/2020 [facility] 12 % 07/25/2020 12:00:00 AM EST cream 140 APPLY TO FEET DAILY APPLY TO FEET DAILY SOLD: 07/28/2020 [facility] Folic Acid 1 MG Oral Tablet FOLIC ACID 07/24/2020 12:00:00 AM EST tabl et 30 TAKE ONE TABLET BY MOUTH DAILY TAKE ONE TABLET BY MOUTH DAILY SOLD: 07/28/2020 [facility] ammonium lactate 120 MG/ML Topical Cream Ammonium Lactate 07/24/2020 12:00:00 AM EST active [facility] ([facility] Calcitriol 0.88316 MG Oral Capsule 0.25 mcg CALCITRIOL 07/06/2020 12:00:00 AM EST capsule 60 TAKE TWO CAPSULES BY MOUTH D AILY TAKE TWO CAPSULES BY MOUTH DAILY SOLD: 07/08/2020 [facility] Cephalexin 500 MG Oral Capsule Cephalexin 500 MG 07/03/2020 12:00:00 AM EST active Cephalexin 500 MG eC W1 ([facility]) 500 mg 07/03/2020 12:00:00 AM EST capsule 1 TAKE 1 CAPSULE 1 HOUR PRIOR TO YOUR CYSTOSCOPY TAKE 1 CAPSULE 1 HOUR PRIOR TO YOUR CYSTOSCOPY SOLD: [facility] Cephalexin 500 MG Oral Capsule Cephalexin 500 MG 07/03/2020 12:00:00 AM EST suspended Cephalexin 500 MG eC W1 ([facility]) Cephalexin 500 MG Oral Capsule Cephalexin 500 MG 07/03/2020 12:00:00 AM EST suspended Cephalexin 500 MG eC W1 ([facility]) 250 mg 07/01/2020 12:00:00 AM EST tablet 60 TAKE ONE TABLET BY MOUTH TWICE A DAY TAKE ONE TABLET BY MOUTH TWICE A DAY SOLD: 07/02/2020 [facility] 650 mg 07/01/2020 12:00:00 AM EST tablet 120 TAKE TWO TABLETS BY MOUTH TWICE A DAY TAKE TWO TABLETS BY MOUTH TWICE A DAY SOLD: 07/02/2020 [facility] 60 mg 06/22/2020 12:00:00 AM EST tablet extended release 24 hr 180 TAKE ONE TABLET BY MOUTH TWICE A DAY TAKE ONE TABLET BY MOUTH TWICE A DAY SOLD: 06/23/2020 [facility] Calcitriol 0.23703 MG Oral Capsule 0.25 mcg CALCITRIOL 06/16/2020 12:00:00 AM EST capsule 60 TAKE 2 CAPSULES BY MOUTH FIVE DAYS PER WEEK THURSDAY THROUGH THURSDAY TAKE 2 CAPSULES BY MOUTH FIVE DAYS PER WEEK Thursday SOLD: 06/23/2020 [facility] 10 mg 06/14/2020 12:00:00 AM EST tablet 90 TAKE ONE TABLET BY MOUTH EVERY DAY TAKE ONE TABLET BY MOUTH EVERY DAY SOLD: 06/14/2020 [facility] Clonidine Hydrochloride 0.1 MG Oral Tablet CLONIDINE HCL 06/08/2020 12:00:00 AM EST tablet 60 TAKE ONE TABLET BY MOUTH TWI CE A DAY TAKE ONE TABLET BY MOUTH TWICE A DAY SOLD: 06/14/2020 [facility] 25 mg 06/07/2020 12:00:00 AM EST tablet 30 TAKE ONE TABLET BY MOUTH EVERY 12 HOURS NEEDED FOR ITCHING TAKE ONE TABLET BY MOUTH EVERY 12 HOURS NEEDED FOR ITCHING SOLD: 06/07/2020 [facility] 325 mg (65 mg iron) 05/24/2020 12:00:00 AM EST tablet 90 TAKE ONE TABLET BY MOUTH EVERY DAY TAKE ONE TABLET BY MOUTH EVERY DAY SOLD: 05/27/2020 [facility] 1 mg 05/14/2020 12:00:00 AM EST tablet 30 TAKE ONE TABLET BY MOUTH DAILY TAKE ONE TABLET BY MOUTH DAILY SOLD: 06/23/2020 [facility] 1 mg 05/14/2020 12:00:00 AM EST tablet 30 TAKE ONE TABLET BY MOUTH DAILY TAKE ONE TABLET BY MOUTH DAILY SOLD: 05/16/2020 [facility] Hydralazine Hydrochloride 100 MG Oral Tablet HYDRALAZINE HCL 05/07/2020 12:00:00 AM EST tablet 90 TAKE ONE TABLET BY MOUTH THR EE TIMES A DAY WITH FOOD TAKE ONE TABLET BY MOUTH THREE TIMES A DAY WITH FOOD SOLD: 05/11/2020 [facility] Hydralazine Hydrochloride 100 MG Oral Tablet HYDRALAZINE HCL 05/07/2020 12:00:00 AM EST tablet 90 TAKE ONE TABLET BY MOUTH THR EE TIMES A DAY WITH FOOD TAKE ONE TABLET BY MOUTH THREE TIMES A DAY WITH FOOD SOLD: 07/20/2020 [facility] Hydralazine Hydrochloride 100 MG Oral Tablet HYDRALAZINE HCL 05/07/2020 12:00:00 AM EST tablet 90 TAKE ONE TABLET BY MOUTH THR EE TIMES A DAY WITH FOOD TAKE ONE TABLET BY MOUTH THREE TIMES A DAY WITH FOOD SOLD: 06/14/2020 [facility] 25 mg 04/26/2020 12:00:00 AM EST tablet 90 TAKE ONE TABLET BY MOUTH EVERY DAY TAKE ONE TABLET BY MOUTH EVERY DAY SOLD: 04/27/2020 [facility] 25 mg 04/26/2020 12:00:00 AM EST tablet 90 TAKE ONE TABLET BY MOUTH EVERY DAY TAKE ONE TABLET BY MOUTH EVERY DAY SOLD: 07/28/2020 [facility] 650 mg 03/21/2020 12:00:00 AM EDT tablet 540 TAKE TWO TABLETS BY MOUTH THREE TIMES A DAY TAKE TWO TABLETS BY MOUTH THREE TIMES A DAY SOLD: 03/23/2020 [facility] 90 mcg/actuation 03/21/2020 12:00:00 AM EDT HFA aerosol inha ler 8 INHALE 1-2 PUFFS BY MOUTH EVERY 4-6 HOUR NEEDED FOR COUGH OR SHORTNESS OF BREATH INHALE 1-2 PUFFS BY MOUTH EVERY 4-6 HOUR NEEDED FOR COUGH OR SHORTNESS OF BREATH SOLD: 03/23/2020 [facility] 20 mg 03/21/2020 12:00:00 AM EDT tablet 90 TAKE ONE TABLET BY MOUTH EVERY MORNING TAKE ONE TABLET BY MOUTH EVERY MORNING SOLD: 03/23/2020 [facility] 75 mg 03/20/2020 12:00:00 AM EDT tablet 90 TAKE ONE TABLET BY MOUTH EVERY DAY TAKE ONE TABLET BY MOUTH EVERY DAY SOLD: 06/30/2020 [facility] 75 mg 03/20/2020 12:00:00 AM EDT tablet 90 TAKE ONE TABLET BY MOUTH EVERY DAY TAKE ONE TABLET BY MOUTH EVERY DAY SOLD: 03/23/2020 [facility] carvedilol 25 MG Oral Tablet CARVEDILOL 03/14/2020 12:00:00 AM EDT tab let 120 TAKE TWO TABLETS BY MOUTH TWICE A DAY TAKE TWO TABLETS BY MOUTH TWICE A DAY SOLD: 07/09/2020 [facility] carvedilol 25 MG Oral Tablet CARVEDILOL 03/14/2020 12:00:00 AM EDT tab let 120 TAKE TWO TABLETS BY MOUTH TWICE A DAY TAKE TWO TABLETS BY MOUTH TWICE A DAY SOLD: 08/08/2020 [facility] carvedilol 25 MG Oral Tablet CARVEDILOL 03/14/2020 12:00:00 AM EDT tab let 120 TAKE TWO TABLETS BY MOUTH TWICE A DAY TAKE TWO TABLETS BY MOUTH TWICE A DAY SOLD: 03/23/2020 [facility] carvedilol 25 MG Oral Tablet CARVEDILOL 03/14/2020 12:00:00 AM EDT tab let 120 TAKE TWO TABLETS BY MOUTH TWICE A DAY TAKE TWO TABLETS BY MOUTH TWICE A DAY SOLD: 06/02/2020 [facility] carvedilol 25 MG Oral Tablet CARVEDILOL 03/14/2020 12:00:00 AM EDT tab let 120 TAKE TWO TABLETS BY MOUTH TWICE A DAY TAKE TWO TABLETS BY MOUTH TWICE A DAY SOLD: 05/04/2020 [facility] 75 mg 02/24/2020 12:00:00 AM EDT tablet 30 TAKE ONE TABLET BY MOUTH EVERY DAY TAKE ONE TABLET BY MOUTH EVERY DAY SOLD: 02/25/2020 [facility] Prednisone 20 MG Oral Tablet Prednisone 02/17/2020 12:00:00 AM EDT ORAL active [facility] ([facility]) 20 mg 02/17/2020 12:00:00 AM EDT tablet 3 TAKE ONE TABLET BY MOUTH EVERY DAY FOR 3 DAYS TAKE ONE TABLET BY MOUTH EVERY DAY FOR 3 DAYS SOLD: 02/18/2020 [facility] 2.5 mg /3 mL (0.083 %) 02/16/2020 12:00:00 AM EDT solu tion for nebulization 525 INHALE THE CONTENTS OF ONE VIAL VIA NEBU LIZER EVERY 4 HOURS NEEDED INHALE THE CONTENTS OF ONE VIAL VIA NEBULIZER EVERY 4 HOURS NEEDED SOLD: 02/18/2020 [facility] Chlorthalidone 25 MG Oral Tablet chlorthalidone (HYGRO TEN) tablet 25 mg chlorthalidone (HYGROTEN) tablet 25 mg 02/05/2020 09:00:00 AM EDT 2 5 mg Oral active 25 mg, Oral, Daily, First dose on 02/05/20 at 0900 [facility] Medication administered onsite febuxostat 40 MG Oral Tablet febuxostat (ULORIC) 40 MG tablet 80 mg febuxostat (ULORIC) 40 MG tablet 80 mg 02/05/2020 09:00:00 AM EDT 80 mg Oral active 80 mg, Oral, Daily, First dose on Sun at 0900 [facility] Medication administered onsite Calcitriol 0.69619 MG Oral Capsule calcitriol (ROCALTR OL) capsule 0.5 mcg calcitriol (ROCALTROL) capsule 0.5 mcg 02/05/2020 09:00:00 AM EDT 0 .5 ug Oral active 0.5 mcg, Oral, 5 x weekly (Once per day on Thu), First dose on 02/05/20 at 0900 [facility] Medication administered onsite 5-325 mg 02/05/2020 12:00:00 AM EDT tablet 15 TAKE ONE TABLET BY MOUTH EVERY 6 HOURS NEEDED FOR PAIN MAXIMUM DAILY DOSE = FOUR TABLETS TAKE ONE TABLET BY MOUTH EVERY 6 HOURS NEEDED FOR PAIN MAXIMUM DAILY DOSE = FOUR TABLETS SOLD: 02/05/2020 [facility] Acetaminophen 325 MG / Hydrocodone Tae trate 5 MG Oral Tablet HYDROcodone- acetaminophen (NORCO) 5-325 MG per tablet HYDROcodone-acetaminophen (NORCO) 5- 325 MG per tablet 02/05/2020 12:00:00 AM EDT 1 {tbl} Oral active Take 1 tablet by mouth every 6 (six) hours as needed for pain Max Daily Amount: 4 tablets [facility] normal saline flush 0.9 % injection 3 mL 53382-858-52 02/04/2020 10:00:00 PM EDT 3 mL Intravenous active 3 mL , Intravenous, PROTOCOL, First dose on 02/04/20 at 2200, Post-op
When taking PO well (600 mL x 1 shift).
[facility] Medication administered onsite Sodium Bicarbonate 650 MG Oral Tablet sodium bicarbona te tablet 1,300 mg sodium bicarbonate tablet 1,300 mg 02/04/2020 10:00:00 PM EDT 1300 mg Oral active 1,300 mg, Oral, 3 times daily, F irst dose on 02/04/20 at 2200 [facility] Medication administered onsite Hydralazine Hydrochloride 25 MG Oral Tab let hydrALAZINE (APRESOLINE) tablet 100 mg hydrALAZINE (APRESOLINE) tablet 100 mg 02/04/2020 10:00:00 PM EDT 100 mg Oral active 100 mg, Oral, 3 times daily, First dose on 02/04/20 at 2200 [facility] Medication administered onsite Zolpidem tartrate 5 MG Oral Tablet zolpidem (AMBIEN) t ablet 5 mg zolpidem (AMBIEN) tablet 5 mg 02/04/2020 09:00:00 PM EDT 5 mg Oral active 5 mg, Oral, Nightly, First dose on 02/04/20 at 2100, For 7 days [facility] Medication administered onsite Tamsulosin hydrochloride 0.4 MG Oral Cap zia tamsulosin (FLOMAX) 24 hr capsule 0.4 mg tamsulosin (FLOMAX) 24 hr capsule 0.4 mg 02/04/2020 09:00:00 PM EDT 0.4 mg Oral active 0.4 mg, Oral, Daily, Fir st dose on 02/04/20 at 2100 [facility] Medication administered onsite Phenytoin sodium 100 MG Extended Release Oral Capsule phenytoin (DILANTIN) ER capsule 300 mg phenytoin (DILANTIN) ER capsule 300 mg 02/04/2020 09:0 0:00 PM EDT 300 mg Oral active 300 mg, Oral, Nightly, First dose on 02/04/20 at 2100
Hold enteral nutrition at least 1 hour before and 2 hours after dose. Monitor drug levels. *For administration and preparation considerations refer to Hazardous Drugs in Workplace Policy on intranet.*
[facility] Medication administered onsite Gentamicin Sulfate (LONGTERM) 3 MG/ML Ophthal sylvester Solution gentamicin (GARAMYCIN) 0.3 % ophthalmic solution 2 drop gentamicin (GARAMYCIN) 0.3 % ophthalmic solution 2 drop 02/04/2020 08:00:00 PM EDT 2 [drp] active 2 drop, Left Eye, Every 4 hours (scheduled), First dose on 02/04/20 at 2000, For 2 days, Post-op [facility] Medication administered onsite Tetracaine hydrochloride 5 MG/ML Ophthal sylvester Solution tetracaine (PONTOCAINE) 0.5 % ophthalmic solution 1-2 drop tetracaine (PONTOCAINE) 0.5 % ophthalmic solution 1-2 drop 02/04/2020 07:07:12 PM EDT active 1-2 drop, Left Eye, Every 4 hours PRN, eye pain, Starting 02/04/20 at 1907, For 24 hours, Post-op [facility] Medication administered onsite cefazolin (ANCEF) injection 2 g 02/04/2020 04:00:00 PM EDT 2 g Intravenous completed Perioperative Pharmacoprophylaxis 2 g, Intravenous, Administer over 6 Minutes, Every 8 hours (relative), First dose on 02/04/20 at 1600, For 2 doses
RN may administer IV push or infuse this medication through syringe adapter set ref [id number]. Flush line after use
[facility] Perioperative Pharmacoprophylaxis Medication administered onsite Amlodipine 10 MG Oral Tablet amLODIPine (NORVASC) tabl et 10 mg amLODIPine (NORVASC) tablet 10 mg 02/04/2020 04:00:00 PM EDT 10 mg Oral active 10 mg, Oral, Daily, First dose on 02/04/20 at 1600 [facility] Medication administered onsite Aspirin 81 MG Delayed Release Oral Tablet aspirin EC t ablet 81 mg aspirin EC tablet 81 mg 02/04/2020 04:00:00 PM EDT 81 mg Oral activ e 81 mg, Oral, Daily, First dose on 02/04/20 at 1600 [facility] Medication administered onsite Folic Acid 1 MG Oral Tablet folic acid (FOLVITE) table t 1 mg folic acid (FOLVITE) tablet 1 mg 02/04/2020 04:00:00 PM EDT 1 mg Oral active 1 mg, Oral, Daily, First dose on 02/04/20 at 1600 [facility] Medication administered onsite 24 HR Isosorbide Mononitrate 30 MG Exten ded Release Oral Tablet isosorbide mononitrate (IMDUR) 24 hr tablet 30 mg isosorbide mononitrate (IMDUR) 24 hr tablet 30 mg 02/04/2020 04:00:00 PM EDT 30 mg Oral activ e 30 mg, Oral, 2 times daily, First dose on 02/04/20 at 1600 [facility] Medication administered onsite clopidogrel 75 MG Oral Tablet clopidogrel (PLAVIX) tab let 75 mg clopidogrel (PLAVIX) tablet 75 mg 02/04/2020 04:00:00 PM EDT 75 mg Oral active 75 mg, Oral, Daily, First dose on 02/04/20 at 1600 [facility] Medication administered onsite Famotidine 20 MG Oral Tablet famotidine (PEPCID) table t 20 mg famotidine (PEPCID) tablet 20 mg 02/04/2020 04:00:00 PM EDT 20 mg Oral active 20 mg, Oral, 2 times daily, First dose on 02/04/20 at 1600 [facility] Medication administered onsite carvedilol 25 MG Oral Tablet carvedilol (COREG) tablet 50 mg carvedilol (COREG) tablet 50 mg 02/04/2020 04:00:00 PM EDT 50 mg Oral activ e 50 mg, Oral, 2 times daily, First dose on 02/04/20 at 1600 [facility] Medication administered onsite Oxycodone Hydrochloride 10 MG Oral Tablet Oxycodone HC l TABS 10 mg Oxycodone HCl TABS 10 mg 02/04/2020 02:55:34 PM EDT 10 mg Oral active 10 mg, Oral, Every 4 hours PRN, severe pain (7-10), Starting 02/04/20 at 1455, For 7 days, Post-op [facility] Medication administered onsite Oxycodone Hydrochloride 5 MG Oral Tablet oxyCODONE (ROXICODONE) immediate release tablet 5 mg oxyCODONE (ROXICODONE) immediate release tablet 5 mg 02/04/2020 02:55:34 PM EDT 5 mg Oral active 5 mg, Oral, Every 4 hours PRN, moderate pain (4-6), Starting 02/04/20 at 1455, For 7 days, Post-op [facility] Medication administered onsite Albuterol 0.83 MG/ML Inhalant Solution a lbuterol (PROVENTIL) nebulizer solution 2.5 mg albuterol (PROVENTIL) nebulizer solution 2.5 mg 2019 02:55:34 PM EDT 2.5 mg active 2.5 mg, Nebulization, RT every 4 hours as needed, wheezing, shortness of breath, Starting 02/04/20 at 1455 [facility] Medication administered onsite Acetaminophen 500 MG Oral Tablet acetaminophen (TYLENO L) tablet 1,000 mg acetaminophen (TYLENOL) tablet 1,000 mg 02/04/2020 02:55:33 PM EDT 1000 mg Oral active 1,000 mg, Oral , Every 6 hours PRN, mild pain (1-3), Starting 02/04/20 at 1455 [facility] Medication administered onsite Hydralazine Hydrochloride 20 MG/ML Injec table Solution hydrALAZINE (APRESOLINE) injection 10 mg hydrALAZINE (APRESOLINE) injection 10 mg 02/04/2020 01 :04:10 PM EDT 10 mg aborted 10 mg, I ntravenous Push, Every 10 min PRN, high blood pressure, Starting 02/04/20 at 1304, For 2 doses, PACU (only) [facility] Medication administered onsite 2 ML Metoclopramide 5 MG/ML Prefilled Sy ringe metoclopramide (REGLAN) injection 10 mg metoclopramide (REGLAN) injection 10 mg 02/04/2020 12:11:53 PM E DT 10 mg Intravenous active 10 mg, I ntravenous, Every 6 hours PRN, nausea, vomiting, Starting 02/04/20 at 1211, Post-op [facility] Medication administered onsite fentaNYL Citrate (PF) (SUBLIMAZE) injection 25 mcg [id number] 02/04/2020 12:06:35 PM EDT 25 ug Intravenous aborted 25 mcg, Intravenous, Every 5 min PRN, moderate pain (4 to 6), Starting 02/04/20 at 1206, For 5 doses, PACU (only) [facility] Medication administered onsite 8 mg 01/23/2020 12:00:00 AM EDT tablet 90 TAKE ONE TABLET BY MOUTH AT BEDTIME TAKE ONE TABLET BY MOUTH AT BEDTIME SOLD: 05/04/2020 [facility] 0.4 mg 01/23/2020 12:00:00 AM EDT capsule 180 TAKE TWO CAPSULES BY MOUTH EVERY DAY TAKE TWO CAPSULES BY MOUTH EVERY DAY SOLD: 06/02/2020 [facility] 0.4 mg 01/23/2020 12:00:00 AM EDT capsule 180 TAKE TWO CAPSULES BY MOUTH EVERY DAY TAKE TWO CAPSULES BY MOUTH EVERY DAY SOLD: 01/23/2020 [facility] 24 HR Isosorbide Mononitrate 30 MG Extended Release Or al Tablet ISOSORBIDE MONONITRATE 01/23/2020 12:00:00 AM EDT tablet extended release 24 hr 180 TAKE ONE TABLET BY MOUTH TWICE A DAY TAKE ONE TABLET BY MOUTH TWICE A DAY SOLD: 01/28/2020 [facility] 8 mg 01/23/2020 12:00:00 AM EDT tablet 90 TAKE ONE TABLET BY MOUTH AT BEDTIME TAKE ONE TABLET BY MOUTH AT BEDTIME SOLD: 01/28/2020 [facility] 24 HR Isosorbide Mononitrate 30 MG Extended Release Or al Tablet ISOSORBIDE MONONITRATE 01/23/2020 12:00:00 AM EDT tablet extended release 24 hr 180 TAKE ONE TABLET BY MOUTH TWICE A DAY TAKE ONE TABLET BY MOUTH TWICE A DAY SOLD: 05/16/2020 [facility] 25 mg 01/11/2020 12:00:00 AM EDT tablet 90 TAKE ONE TABLET BY MOUTH EVERY DAY TAKE ONE TABLET BY MOUTH EVERY DAY SOLD: 01/12/2020 [facility] 650 mg 12/30/2019 12:00:00 AM EDT tablet 540 TAKE TWO TABLETS BY MOUTH THREE TIMES A DAY TAKE TWO TABLETS BY MOUTH THREE TIMES A DAY SOLD: 01/03/2020 [facility] 1 mg 12/26/2019 12:00:00 AM EDT tablet 30 TAKE ONE TABLET BY MOUTH DAILY TAKE ONE TABLET BY MOUTH DAILY SOLD: 04/18/2020 [facility] 1 mg 12/26/2019 12:00:00 AM EDT tablet 30 TAKE ONE TABLET BY MOUTH DAILY TAKE ONE TABLET BY MOUTH DAILY SOLD: 01/03/2020 [facility] 1 mg 12/26/2019 12:00:00 AM EDT tablet 30 TAKE ONE TABLET BY MOUTH DAILY TAKE ONE TABLET BY MOUTH DAILY SOLD: 01/23/2020 [facility] 1 mg 12/26/2019 12:00:00 AM EDT tablet 30 TAKE ONE TABLET BY MOUTH DAILY TAKE ONE TABLET BY MOUTH DAILY SOLD: 03/10/2020 [facility] 10 mg 11/30/2019 12:00:00 AM EDT tablet 90 TAKE ONE TABLET BY MOUTH EVERY DAY TAKE ONE TABLET BY MOUTH EVERY DAY SOLD: 12/01/2019 [facility] 10 mg 11/30/2019 12:00:00 AM EDT tablet 90 TAKE ONE TABLET BY MOUTH EVERY DAY TAKE ONE TABLET BY MOUTH EVERY DAY SOLD: 03/10/2020 [facility] Calcitriol 0.35021 MG Oral Capsule 0.25 mcg CALCITRIOL 11/30/2019 12:00:00 AM EDT capsule 180 TAKE TWO CAPSULES BY MOUTH E VERY DAY TAKE TWO CAPSULES BY MOUTH EVERY DAY SOLD: 12/01/2019 [facility] 600 mg 11/28/2019 12:00:00 AM EDT tablet 60 TAKE ONE TABLET BY MOUTH TWICE A DAY TAKE ONE TABLET BY MOUTH TWICE A DAY SOLD: 12/01/2019 [facility] 15-20 gram/60 mL 11/21/2019 12:00:00 AM EDT suspension 240 TAKE 60ML BY MOUTH ONCE A WEEK TAKE 60ML BY MOUTH ONCE A WEEK SOLD: 02/11/2020 [facility] 15-20 gram/60 mL 11/21/2019 12:00:00 AM EDT suspension 240 TAKE 60ML BY MOUTH ONCE A WEEK TAKE 60ML BY MOUTH ONCE A WEEK SOLD: 12/16/2019 [facility] 15-20 gram/60 mL 11/21/2019 12:00:00 AM EDT suspension 120 TAKE 60ML BY MOUTH ONCE A WEEK TAKE 60ML BY MOUTH ONCE A WEEK SOLD: 03/23/2020 [facility] 15-20 gram/60 mL 11/21/2019 12:00:00 AM EDT suspension 240 TAKE 60ML BY MOUTH ONCE A WEEK TAKE 60ML BY MOUTH ONCE A WEEK SOLD: 01/12/2020 [facility] 15-20 gram/60 mL 11/21/2019 12:00:00 AM EDT suspension 240 TAKE 60ML BY MOUTH ONCE A WEEK TAKE 60ML BY MOUTH ONCE A WEEK SOLD: 11/21/2019 [facility] 15-20 gram/60 mL 11/21/2019 12:00:00 AM EDT suspension 240 TAKE 60ML BY MOUTH ONCE A WEEK TAKE 60ML BY MOUTH ONCE A WEEK SOLD: 04/27/2020 [facility] 100 mg 11/09/2019 12:00:00 AM EDT tablet 90 TAKE ONE TABLET BY MOUTH THREE TIMES A DAY TAKE ONE TABLET BY MOUTH THREE TIMES A DAY SOLD: 01/23/2020 [facility] Hydralazine Hydrochloride 100 MG Oral Tablet HYDRALAZINE HCL 11/09/2019 12:00:00 AM EDT tablet 90 TAKE ONE TABLET BY MOUTH THR EE TIMES A DAY TAKE ONE TABLET BY MOUTH THREE TIMES A DAY SOLD: 04/07/2020 [facility] 100 mg 11/09/2019 12:00:00 AM EDT tablet 90 TAKE ONE TABLET BY MOUTH THREE TIMES A DAY TAKE ONE TABLET BY MOUTH THREE TIMES A DAY SOLD: 11/10/2019 [facility] 100 mg 11/09/2019 12:00:00 AM EDT tablet 90 TAKE ONE TABLET BY MOUTH THREE TIMES A DAY TAKE ONE TABLET BY MOUTH THREE TIMES A DAY SOLD: 02/25/2020 [facility] clopidogrel 75 MG Oral Tablet Clopidogrel Bisulfate 11/02/2019 1 2:00:00 AM EDT ORAL active [facility] ( [facility]) 75 mg 11/02/2019 12:00:00 AM EDT tablet 30 TAKE ONE TABLET BY MOUTH EVERY DAY STARTING 11/17/19 TAKE ONE TABLET BY MOUTH EVERY DAY STARTING 11/17/19 SO LD: 01/23/2020 [facility] 75 mg 11/02/2019 12:00:00 AM EDT tablet 30 TAKE ONE TABLET BY MOUTH EVERY DAY STARTING 11/17/19 TAKE ONE TABLET BY MOUTH EVERY DAY STARTING 11/17/19 SO LD: 12/16/2019 [facility] 75 mg 11/02/2019 12:00:00 AM EDT tablet 30 TAKE ONE TABLET BY MOUTH EVERY DAY STARTING 11/17/19 TAKE ONE TABLET BY MOUTH EVERY DAY STARTING 11/17/19 SO LD: 11/05/2019 [facility] 100 mg 10/25/2019 12:00:00 AM EDT capsule 270 TAKE THREE CAPSULES BY MOUTH EVERY DAY TAKE THREE CAPSULES BY MOUTH EVERY DAY SOLD: 11/05/2019 [facility] 100 mg 10/25/2019 12:00:00 AM EDT capsule 270 TAKE THREE CAPSULES BY MOUTH EVERY DAY TAKE THREE CAPSULES BY MOUTH EVERY DAY SOLD: 06/02/2020 [facility] 100 mg 10/25/2019 12:00:00 AM EDT capsule 270 TAKE THREE CAPSULES BY MOUTH EVERY DAY TAKE THREE CAPSULES BY MOUTH EVERY DAY SOLD: 03/05/2020 [facility] Phenytoin sodium 100 MG Extended Release Oral Capsule phenytoin (DILANTIN) 100 MG ER capsule phenytoin (DILANTIN) 100 MG ER capsule 10/25/2019 12:00:00 A M EDT 300 mg Oral active Take 300 mg by m outh nightly [facility] 650 mg 10/19/2019 12:00:00 AM EDT tablet 100 TAKE ONE TABLET BY MOUTH FOUR TIMES A DAY TAKE ONE TABLET BY MOUTH FOUR TIMES A DAY SOLD: 12/25/2019 [facility] 650 mg 10/19/2019 12:00:00 AM EDT tablet 120 TAKE ONE TABLET BY MOUTH FOUR TIMES A DAY TAKE ONE TABLET BY MOUTH FOUR TIMES A DAY SOLD: 10/20/2019 [facility] carvedilol 25 MG Oral Tablet CARVEDILOL 08/11/2019 12:00:00 AM EST tab let 120 TAKE TWO TABLETS BY MOUTH TWICE A DAY TAKE TWO TABLETS BY MOUTH TWICE A DAY SOLD: 01/03/2020 [facility] carvedilol 25 MG Oral Tablet CARVEDILOL 08/11/2019 12:00:00 AM EST tab let 120 TAKE TWO TABLETS BY MOUTH TWICE A DAY TAKE TWO TABLETS BY MOUTH TWICE A DAY SOLD: 12/01/2019 [facility] carvedilol 25 MG Oral Tablet CARVEDILOL 08/11/2019 12:00:00 AM EST tab let 120 TAKE TWO TABLETS BY MOUTH TWICE A DAY TAKE TWO TABLETS BY MOUTH TWICE A DAY SOLD: 08/11/2019 [facility] carvedilol 25 MG Oral Tablet CARVEDILOL 08/11/2019 12:00:00 AM EST tab let 120 TAKE TWO TABLETS BY MOUTH TWICE A DAY TAKE TWO TABLETS BY MOUTH TWICE A DAY SOLD: 10/19/2019 [facility] carvedilol 25 MG Oral Tablet CARVEDILOL 08/11/2019 12:00:00 AM EST tab let 120 TAKE TWO TABLETS BY MOUTH TWICE A DAY TAKE TWO TABLETS BY MOUTH TWICE A DAY SOLD: 02/14/2020 [facility] carvedilol 25 MG Oral Tablet CARVEDILOL 08/11/2019 12:00:00 AM EST tab let 120 TAKE TWO TABLETS BY MOUTH TWICE A DAY TAKE TWO TABLETS BY MOUTH TWICE A DAY SOLD: 09/10/2019 [facility] 0.25 mcg 08/10/2019 12:00:00 AM EST capsule 40 TAKE 2 CAPSULES BY MOUTH FIVE DAYS PER WEEK THURSDAY THROUGH THURSDAY TAKE 2 CAPSULES BY MOUTH FIVE DAYS PER W [place] THURSDAY THROUGH THURSDAY SOLD: 04/18/2020 [facility] 0.25 mcg 08/10/2019 12:00:00 AM EST capsule 40 TAKE 2 CAPSULES BY MOUTH FIVE DAYS PER WEEK THURSDAY THROUGH THURSDAY TAKE 2 CAPSULES BY MOUTH FIVE DAYS PER W [place] THURSDAY THROUGH THURSDAY SOLD: 05/16/2020 [facility] Calcitriol 0.54769 MG Oral Capsule 0.25 mcg CALCITRIOL 08/10/2019 12:00:00 AM EST capsule 40 TAKE 2 CAPSULES BY MOUTH FIVE DAYS PER WEEK THURSDAY THROUGH THURSDAY TAKE 2 CAPSULES BY MOUTH FIVE DAYS PER WEEK Thursday SOLD: 11/10/2019 [facility] Calcitriol 0.42322 MG Oral Capsule 0.25 mcg CALCITRIOL 08/10/2019 12:00:00 AM EST capsule 120 TAKE 2 CAPSULES BY MOUTH FIVE DAYS PER WEEK THURSDAY THROUGH THURSDAY TAKE 2 CAPSULES BY MOUTH FIVE DAYS PER WEEK THURSDAY THR Thursday SOLD: 08/11/2019 [facility] Bisacodyl 5 MG Delayed Release Oral Tablet [Dulcolax] Dulcol ax 08/09/2019 12:00:00 AM EST active M [facility]ENT ([facility], ) POLYETHYLENE GLYCOL 3350 105 MG/ML / Pot assium Chloride 0.03222 MEQ/ML / Sodium Bicarbonate 0.017 MEQ/ML / Sodium Chloride 0.0479 MEQ/ML Oral Solution [GaviLyte-N] Gavilyte-N With Flavor Pack 08/09/2019 12:00:00 AM EST active MED[facility] ([facility], ) 420 gram 08/09/2019 12:00:00 AM EST recon soln 4000 A S DIRECTED DIRECTED SOLD: 08/09/2019 [facility] 650 mg 08/09/2019 12:00:00 AM EST tablet 90 TAKE ONE TABLET BY MOUTH THREE TIMES A DAY TAKE ONE TABLET BY MOUTH THREE TIMES A DAY SOLD: 08/09/2019 [facility] 650 mg 08/09/2019 12:00:00 AM EST tablet 90 TAKE ONE TABLET BY MOUTH THREE TIMES A DAY TAKE ONE TABLET BY MOUTH THREE TIMES A DAY SOLD: 09/28/2019 [facility] 5 mg 08/09/2019 12:00:00 AM EST tablet,delayed release (DR/EC) 4 TAKE 4 TABLETS BY MOUTH TOGETHER PER BOWEL PREP INSTRUCTIONS TAKE 4 TABLETS BY MOUTH TOGETHER PER BOWEL PREP INSTRUCTIONS SOLD: 08/09/2019 [facility] 80 mg 08/06/2019 12:00:00 AM EST tablet 45 TAKE ONE AND ONE-HALF TABLETS BY MOUTH EVERY DAY TAKE ONE AND ONE-HALF TABLETS BY MOUTH EVERY DAY SOLD: 01/03/2020 [facility] 80 mg 08/06/2019 12:00:00 AM EST tablet 25 TAKE ONE AND ONE-HALF TABLETS BY MOUTH EVERY DAY TAKE ONE AND ONE-HALF TABLETS BY MOUTH EVERY DAY SOLD: 06/02/2020 [facility] 80 mg 08/06/2019 12:00:00 AM EST tablet 45 TAKE ONE AND ONE-HALF TABLETS BY MOUTH EVERY DAY TAKE ONE AND ONE-HALF TABLETS BY MOUTH EVERY DAY SOLD: 02/29/2020 [facility] 80 mg 08/06/2019 12:00:00 AM EST tablet 135 TAKE ONE AND ONE-HALF TABLETS BY MOUTH EVERY DAY TAKE ONE AND ONE-HALF TABLETS BY MOUTH EVERY DAY SOLD: 08/09/2019 [facility] 80 mg 08/06/2019 12:00:00 AM EST tablet 30 TAKE ONE AND ONE-HALF TABLETS BY MOUTH EVERY DAY TAKE ONE AND ONE-HALF TABLETS BY MOUTH EVERY DAY SOLD: 07/09/2020 [facility] 80 mg 08/06/2019 12:00:00 AM EST tablet 45 TAKE ONE AND ONE-HALF TABLETS BY MOUTH EVERY DAY TAKE ONE AND ONE-HALF TABLETS BY MOUTH EVERY DAY SOLD: 04/18/2020 [facility] 650 mg 07/11/2019 12:00:00 AM EST tablet 60 TAKE ONE TABLET BY MOUTH TWICE A DAY TAKE ONE TABLET BY MOUTH TWICE A DAY SOLD: 07/19/2019 [facility] Ciprofloxacin 500 MG Oral Tablet Ciprofloxacin HCl 500 MG Ciprofloxacin HCl 500 MG 06/16/2019 12:00:00 AM EST active 1 tablet eCW1 ([facility]) 500 mg 06/16/2019 12:00:00 AM EST tablet 28 TAKE ONE TABLET BY MOUTH EVERY 12 HOURS FOR 14 DAYS TAKE ONE TABLET BY MOUTH EVERY 12 HOURS FOR 14 DAYS SO LD: 06/16/2019 [facility] Ciprofloxacin 500 MG Oral Tablet Ciprofloxacin HCl 500 MG Ciprofloxacin HCl 500 MG 06/16/2019 12:00:00 AM EST active 1 tablet eCW1 ([facility]) Ciprofloxacin 500 MG Oral Tablet Ciprofloxacin HCl 500 MG Ciprofloxacin HCl 500 MG 06/16/2019 12:00:00 AM EST active 1 tablet eCW1 ([facility]) 8 mg 06/07/2019 12:00:00 AM EST tablet 90 TAKE ONE TABLET BY MOUTH AT BEDTIME TAKE ONE TABLET BY MOUTH AT BEDTIME SOLD: 09/10/2019 [facility] 8 mg 06/07/2019 12:00:00 AM EST tablet 90 TAKE ONE TABLET BY MOUTH AT BEDTIME TAKE ONE TABLET BY MOUTH AT BEDTIME SOLD: 06/16/2019 [facility] 5 mg 06/06/2019 12:00:00 AM EST tablet 90 TAKE ONE TABLET BY MOUTH EVERY DAY TAKE ONE TABLET BY MOUTH EVERY DAY SOLD: 09/10/2019 [facility] 1 mg 06/02/2019 12:00:00 AM EST tablet 90 TAKE ONE TABLET BY MOUTH DAILY TAKE ONE TABLET BY MOUTH DAILY SOLD: 09/10/2019 [facility] 100 mg 05/18/2019 12:00:00 AM EST capsule 90 TAKE THREE CAPSULES BY MOUTH EVERY EVENING TAKE THREE CAPSULES BY MOUTH EVERY EVENING SOLD: 06/26/2019 [facility] 100 mg 05/18/2019 12:00:00 AM EST capsule 90 TAKE THREE CAPSULES BY MOUTH EVERY EVENING TAKE THREE CAPSULES BY MOUTH EVERY EVENING SOLD: 07/30/2019 [facility] 100 mg 05/18/2019 12:00:00 AM EST capsule 90 TAKE THREE CAPSULES BY MOUTH EVERY EVENING TAKE THREE CAPSULES BY MOUTH EVERY EVENING SOLD: 09/28/2019 [facility] Phenytoin sodium 100 MG Extended Release Oral Capsule phenytoin (DILANTIN) 100 MG ER capsule phenytoin (DILANTIN) 100 MG ER capsule 05/18/2019 12:00:00 A M EST 300 mg Oral aborted Take 300 mg by m outh nightly [facility] 100 mg 05/18/2019 12:00:00 AM EST capsule 90 TAKE THREE CAPSULES BY MOUTH EVERY EVENING TAKE THREE CAPSULES BY MOUTH EVERY EVENING SOLD: 09/01/2019 [facility] Gemfibrozil 600 MG Oral Tablet GEMFIBROZIL 04/30/2019 12:00:00 AM EST tablet 60 TAKE ONE TABLET BY MOUTH TWICE A DAY TAKE ONE TABLET BY MOUT H TWICE A DAY SOLD: 09/10/2019 [facility] 600 mg 04/30/2019 12:00:00 AM EST tablet 60 TAKE ONE TABLET BY MOUTH TWICE A DAY TAKE ONE TABLET BY MOUTH TWICE A DAY SOLD: 07/09/2019 [facility] 600 mg 04/30/2019 12:00:00 AM EST tablet 60 TAKE ONE TABLET BY MOUTH TWICE A DAY TAKE ONE TABLET BY MOUTH TWICE A DAY SOLD: 08/11/2019 [facility] 600 mg 04/30/2019 12:00:00 AM EST tablet 60 TAKE ONE TABLET BY MOUTH TWICE A DAY TAKE ONE TABLET BY MOUTH TWICE A DAY SOLD: 10/19/2019 [facility] 24 HR Isosorbide Mononitrate 30 MG Extended Release Or al Tablet ISOSORBIDE MONONITRATE 03/25/2019 12:00:00 AM EDT tablet extended release 24 hr 180 TAKE ONE TABLET BY MOUTH TWICE A DAY TAKE ONE TABLET BY MOUTH TWICE A DAY SOLD: 06/26/2019 [facility] 24 HR Isosorbide Mononitrate 30 MG Extended Release Or al Tablet ISOSORBIDE MONONITRATE 03/25/2019 12:00:00 AM EDT tablet extended release 24 hr 60 TAKE ONE TABLET BY MOUTH TWICE A DAY TAKE ONE TABLET BY MOUTH TWICE A DAY SOLD: 11/10/2019 [facility] 24 HR Isosorbide Mononitrate 30 MG Extended Release Or al Tablet ISOSORBIDE MONONITRATE 03/25/2019 12:00:00 AM EDT tablet extended release 24 hr 60 TAKE ONE TABLET BY MOUTH TWICE A DAY TAKE ONE TABLET BY MOUTH TWICE A DAY SOLD: 12/16/2019 [facility] 24 HR Isosorbide Mononitrate 30 MG Extended Release Or al Tablet ISOSORBIDE MONONITRATE 03/25/2019 12:00:00 AM EDT tablet extended release 24 hr 60 TAKE ONE TABLET BY MOUTH TWICE A DAY TAKE ONE TABLET BY MOUTH TWICE A DAY SOLD: 09/28/2019 [facility] 25 mg 03/15/2019 12:00:00 AM EDT tablet 90 TAKE ONE TABLET BY MOUTH EVERY DAY TAKE ONE TABLET BY MOUTH EVERY DAY SOLD: 06/26/2019 [facility] 25 mg 03/15/2019 12:00:00 AM EDT tablet 30 TAKE ONE TABLET BY MOUTH EVERY DAY TAKE ONE TABLET BY MOUTH EVERY DAY SOLD: 12/16/2019 [facility] 25 mg 03/15/2019 12:00:00 AM EDT tablet 30 TAKE ONE TABLET BY MOUTH EVERY DAY TAKE ONE TABLET BY MOUTH EVERY DAY SOLD: 11/10/2019 [facility] 25 mg 03/15/2019 12:00:00 AM EDT tablet 30 TAKE ONE TABLET BY MOUTH EVERY DAY TAKE ONE TABLET BY MOUTH EVERY DAY SOLD: 09/28/2019 [facility] 0.4 mg 03/05/2019 12:00:00 AM EDT capsule 180 TAKE TWO CAPSULES BY MOUTH EVERY DAY TAKE TWO CAPSULES BY MOUTH EVERY DAY SOLD: 06/26/2019 [facility] Calcitriol 0.65076 MG Oral Capsule 0.25 mcg CALCITRIOL 02/28/2019 12:00:00 AM EDT capsule 30 TAKE ONE CAPSULE BY MOUTH EV MEENU DAY TAKE ONE CAPSULE BY MOUTH EVERY DAY SOLD: 07/09/2019 [facility] Fosfomycin 33.3 MG/ML Oral Suspension fosfomycin (ROSITA ROL) 3 g PACK fosfomycin (MONUROL) 3 g PACK 02/16/2019 12:00:00 AM EDT abor duong once a week [facility] 50 mg 12/17/2018 12:00:00 AM EDT tablet 270 TAKE ONE TABLET BY MOUTH THREE TIMES A DAY TAKE ONE TABLET BY MOUTH THREE TIMES A DAY SOLD: 07/19/2019 [facility] 3 gram 12/16/2018 12:00:00 AM EDT packet 3 USE 3GM IN 4 OUNCES OF WATER ONCE WEEKLY USE 3GM IN 4 OUNCES OF WATER ONCE WEEKLY SOLD: 06/16/2019 [facility] 100 mg 10/20/2018 12:00:00 AM EDT tablet 90 TAKE ONE TABLET BY MOUTH THREE TIMES A DAY TAKE ONE TABLET BY MOUTH THREE TIMES A DAY SOLD: 07/19/2019 [facility] Acetaminophen 500 MG Oral Tablet acetaminophen (TYLENO L) 500 MG tablet acetaminophen (TYLENOL) 500 MG tablet 07/09/2018 12:00:00 AM EST 10 00 mg Oral aborted Take 1,000 mg by mouth da rebecca as needed for pain [facility] ramelteon 8 MG Oral Tablet ramelteon (ROZEREM) 8 MG ta blet ramelteon (ROZEREM) 8 MG tablet 8 mg Oral aborted Take 8 mg by mouth nightly [facility] Colchicine 0.6 MG Oral Tablet colchicine (COLCRYS) 0.6 MG tablet colchicine (COLCRYS) 0.6 MG tablet aborted 3 (three) times a day As needed [facility] Allopurinol 300 MG Oral Tablet allopurinol (ZYLOPRIM) 300 MG tablet allopurinol (ZYLOPRIM) 300 MG tablet 300 mg Oral aborted Take 300 mg by mouth daily [facility] Gemfibrozil 600 MG Oral Tablet gemfibrozil (LOPID) 600 MG tablet gemfibrozil (LOPID) 600 MG tablet 600 mg Oral aborted Take 600 mg by mouth 2 (two) times a day before meals [facility] Insurance Providers Payer name Policy type / Coverage type Policy ID Covered green party ID Covered green party's relationship to oneil Policy Oneil Plan Information MEDICARE [id number] UMR [employer] [id number] WI2 [id number] UMR [id number] SPO [id number] [facility] MEDICARE DIVISION [id number] S [id number] [place]IC[place] [id number] S [id number] INSURANCE COVID-19 JEN Anjali E LE UMR [id number] Spo [id number] MEDICARE [id number] Anjali [id number] UMR [id number] MEDICARE [id number] [place] [id number] SPO [id number] MEDICARE [id number] SP [id number] UMR [facility] [id number] WI2 [id number] UMR [id number] Spo [id number] MEDICARE C [id number] S [id number] UMR O [id number] S [id number] UMR [facility] [id number] SP [id number] ANSI-Commercial [id number] ANSI-Commercial [id number] ANSI-Commercial [id number] ANSI-Commercial [id number] ANSI-Commercial [id number] ANSI-Commercial [id number] SPO [id number] ANSI-Commercial [id number] ANSI-Commercial [id number] ANSI-Commercial [id number] ANSI-Commercial [id number] ANSI-Commercial [id number] ANSI-Commercial [id number] ANSI-Commercial [id number] ANSI-Commercial [id number] ANSI-Commercial [id number] ANSI-Commercial [id number] MEDICARE [id number] SP [id number] UMR [facility] [id number] WI2 [id number] MEDICARE [id number] SP [id number] A [employer] [id number] WI2 [id number] [employer] PPO O [id number] P [id number] Medicare Natl Gov't Servi Medigap Part B [id number] Self [id number] [place] Commercial [id number] Family Dependent [id number] POMCO [id number] WI2 [id number] Medicare Natl Gov't Servi Medigap Part B [id number] Self [id number] [place] Commercial [id number] Family Dependent [id number] POMCO [id number] WI2 [id number] Medicare Natl Gov't Servi Medigap Part B [id number] Self [id number] [place] Commercial [id number] Family Dependent [id number] Medicare Natl Gov't Servi Medigap Part B [id number] Self [id number] [place] Commercial [id number] Family Dependent [id number] [place] Medigap Part B Family Dependent Medicare Natl Gov't Servi Medicare Primary Self [place] Medigap Part B [id number] Family Dependent [id number] Medicare [facility] Medicare Primary Self MEDICARE C [id number] S [id number] A [employer] PPO O [id number] P [id number] [place] Family Dependent POMCO [id number] Spo [id number] [employer] Commercial Self [id number] Problems, Conditions, and Diagnoses Code Display Name Description Problem Type Effective Dates Data Source(s) N32.0 Bladder neck obstruction Bladder neck contracture Prob alexander 07/13/2020 12:00:00 AM EST eCW1 ([facility]) I65.21 Occlusion and stenosis of right carotid artery Occlusion and stenosis of right carotid artery [id number] 02/03/2020 12:00:00 AM EDT [facility] N18.4 Stage 4 chronic kidney disease Stage 4 chronic kidney disease [id number] 11/16/2019 12:00:00 AM EDT [facility] [id number] Essential hypertension Essential hypertension Problem 09/01/2019 12:00:00 AM EDT MEDENT ([facility]) D64.9 Anemia Anemia Problem 06/24/2019 12:00:00 AM ES T eCW1 ([facility]) D64.9 Anemia Anemia Problem 06/24/2019 12:00:00 AM ES T eCW1 ([facility]) I65.21 Occlusion and stenosis of right carotid artery Occlusion and stenosis of right carotid Diagnosis 01/30/2020 08:00:41 AM EDT [facility] J98.8 Other specified respiratory disorders Ot her specified respiratory disorders Diagnosis 01/30/2020 07:13:29 AM EDT [facility] U07.1 COVID-19 COVID-19 Diagnosis 01/30/2020 07:13:29 AM ED T [facility] N18.4 Chronic kidney disease, stage 4 (severe) Chronic kidney disease, stage 4 (severe) Diagnosis 11/16/2019 01:02:53 PM EDT [facility] 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 Atherosclerotic heart disease of [place]' Diagnosis 11/16/2019 01:02:53 PM EDT [facility] I35.0 Nonrheumatic aortic (valve) stenosis Nonrheumati c aortic (valve) stenosis Diagnosis 11/16/2019 01:02:53 PM EDT [facility] Z01.810 Encounter for preprocedural cardiovascul ar examination Encounter for preprocedural cardiovascul Diagnosis 11/16/2019 01:02:53 PM EDT [facility] 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 Occlusion and stenosis of bilateral wheat Diagnosis 10/21/2019 01:09:00 PM EDT [facility] Y92.[address] in single- family (private) house as the place of occurrence of the external cause UNSP PLACE IN SINGLE-FAMILY (PRIVATE) HO USE MELISA Diagnosis 08/30/2019 12:02:00 PM EDT [facility] W01.0XXA Fall on same level from slip ping, tripping and stumbling without subsequent striking against object, initial encounter FALL SAME LEV FROM SLIP/TRIP W/O STRIKE AGAINST OB Diagnosis 08/30/2019 12:02:00 PM [facility] Z86.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), and cerebral infarction without residual deficits PRSNL HX OF TIA (TIA), AND CEREB INFRC W /O RESID D Diagnosis 08/30/2019 12:02:00 PM [facility] Y93.01 Activity, walking, marching and hiking A CTIVITY, WALKING, MARCHING AND HIKING Diagnosis 08/30/2019 12:02:00 PM [facility] Y99.8 Other external cause status OTHER EXTERNAL CAUSE STATU S Diagnosis 08/30/2019 12:02:00 PM [facility] S61.511A Laceration without foreign body of right wrist, initial encounter LACERATION WITHOUT FOREIGN BODY OF RIGHT WRIST, IN Diagnosis 03/2020 12:02:00 PM [facility] S52.514A Nondisplaced fracture of rig ht radial styloid process, initial encounter for closed fracture NONDISP FX OF RIGHT RADIAL STYLOID PROCE SS, INIT F Diagnosis 08/30/2019 12:02:00 PM [facility] S69.91XA Unspecified injury of right wrist, hand and finger(s), initial encounter UNSP INJURY OF RIGHT WRIST, HAND AND FINGER(S), INIT ENCNTR Diagnosis 08/30/2019 12:02:00 PM [facility] Surgeries/Procedures Procedure Description Date Indications Data Source(s) uro PVR (Post Voiding Residual) Bladder Scan 1 12:00:00 AM EST eCW1 ([facility]) Duplex Scan Extracranial Arteries, Follow-Up Or Limited Stud y 03/19/2020 12:00:00 AM EDT MEDENT ([facility]) Duplex Scan Extracranial Arteries, Follow-Up Or Limited Stud y 03/19/2020 12:00:00 AM EDT [facility] ([facility]) BLOOD COUNT HEMATOCRIT HEMATOCRIT Add-On 02/05/2020 7:04 AM EDT 02/05/2020 11:04:00 AM EDT [facility] BASIC METABOLIC PANEL CALCIUM TOTAL BASIC METABOLIC PANEL Routi ne 02/05/2020 7:04 AM EDT 02/05/2020 11:04:00 AM EDT [facility] BLOOD COUNT HEMATOCRIT HEMATOCRIT STAT 02/04/2020 6:26 PM EDT 02/04/2020 10:26:00 PM EDT [facility] GLUC BLD GLUC MNTR DEV CLEARED FDA SPEC HOME USE POCT GLUCOSE Routine 02/04/2020 1:41 PM EDT 02/04/2020 05:41:00 PM EDT [facility] TRANSFUSE RED BLOOD CELLS TRANSFUSE RED BLOOD CELLS Routine 02/04/2020 10:03 AM EDT 02/04/2020 02:03:37 PM EDT [facility] POC GLUCOSE POC GLUCOSE Routine 02/04/2020 7:52 AM EDT 02/04/2020 11:52:00 AM EDT [facility] POCT POTASSIUM POCT POTASSIUM Routine 02/04/2020 7:52 AM EDT 02/04/2020 11:52:00 AM EDT [facility] BLOOD COUNT HEMATOCRIT POCT HEMATOCRIT Routine 02/04/2020 7:52 AM EDT 02/04/2020 11:52:00 AM EDT [facility] BLOOD COUNT COMPLETE AUTOMATED CBC STAT 02/04/2020 7:45 A M EDT 02/04/2020 11:45:00 AM EDT [facility] POTASSIUM SERUM PLASMA/WHOLE BLOOD POTASSIUM Routine 02/04/2020 7:45 AM EDT 02/04/2020 11:45:00 AM EDT [facility] Thromboendarterectomy Carotid/Vertebral/Subclav By Neck Inci jany 02/04/2020 12:00:00 AM EDT [facility] ([facility]) PROTHROMBIN TIME PROTIME-INR Routine 01/30/2020 9:05 AM EDT Occlusion and stenosis of right carotid artery 01/30/2020 01 :05:00 PM EDT Occlusion and stenosis of right carotid artery [facility] Occlusion and stenosis of right carotid artery BLOOD COUNT COMPLETE AUTOMATED CBC Routine 0 9:05 AM EDT Occlusion and stenosis of right carotid artery 01/30/2020 01 :05:00 PM EDT Occlusion and stenosis of right carotid artery [facility] Occlusion and stenosis of right carotid artery HEMOGLOBIN GLYCOSYLATED A1C HEMOGLOBIN A1C Routine 01/30/2020 9:05 AM EDT Occlusion and stenosis of right carotid artery 01/30/2020 01 :05:00 PM EDT Occlusion and stenosis of right carotid artery [facility] Occlusion and stenosis of right carotid artery COMPREHENSIVE METABOLIC PANEL COMPREHENSIVE METABOLIC PANEL Rou yeyo 01/30/2020 9:05 AM EDT Occlusion and stenosis of right carotid artery 01/30/2020 01 :05:00 PM EDT Occlusion and stenosis of right carotid artery [facility] Occlusion and stenosis of right carotid artery ECG ROUTINE ECG W/LEAST 12 LDS TRCG ONLY W/O I&R ECG 12-LEAD Routine 11/16/2019 10:06 AM EDT Occlusion and stenosis of right carotid artery 11/16/2019 02 :06:39 PM EDT Occlusion and stenosis of right carotid artery [facility] Occlusion and stenosis of right carotid artery PROTHROMBIN TIME PROTIME-INR Routine 11/16/2019 10:00 AM EDT Occlusion and stenosis of right carotid artery 11/16/2019 02 :00:00 PM EDT Occlusion and stenosis of right carotid artery [facility] Occlusion and stenosis of right carotid artery BLOOD COUNT COMPLETE AUTOMATED CBC Routine 0 10:00 AM EDT Occlusion and stenosis of right carotid artery 11/16/2019 02 :00:00 PM EDT Occlusion and stenosis of right carotid artery [facility] Occlusion and stenosis of right carotid artery COMPREHENSIVE METABOLIC PANEL COMPREHENSIVE METABOLIC PANEL Ever [place] 11/16/2019 10:00 AM EDT Occlusion and stenosis of right carotid artery 11/16/2019 02 :00:00 PM EDT Occlusion and stenosis of right carotid artery [facility] Occlusion and stenosis of right carotid artery HEMOGLOBIN GLYCOSYLATED A1C HEMOGLOBIN A1C Routine 11/16/2019 9:43 AM EDT Occlusion and stenosis of right carotid artery 11/16/2019 01 :43:00 PM EDT Occlusion and stenosis of right carotid artery [facility] Occlusion and stenosis of right carotid artery Endoscopy Small Intestine W/Biopsy 11/04/2019 12:00:00 AM EDT [facility] ([facility]) ENTEROSCOPY > 2ND PRTN W/CONTROL BLEEDING 11/04/2019 1 2:00:00 AM EDT [facility] ([facility], ) Colonoscopy Flexible Proximal To Splenic Flexure W/Biopsy Si ngle/ 11/04/2019 12:00:00 AM EDT [facility] ([facility], ) MRA HEAD W/O CONTRST MATERIAL MRA BRAIN WO CONTRAST Routine 10/21/2019 2:26 PM EDT Occlusion and stenosis of bilateral carotid arteries 0 10/21/2019 06:26:58 PM EDT Occlusion and stenosis of bilateral carotid arteries [facility] Occlusion and stenosis of bilateral wheat tid arteries MRA NECK W/O CONTRST MATERIAL MRA NECK WO CONTRAST Routine 10/21/2019 2:25 PM EDT Occlusion and stenosis of bilateral carotid arteries 0 10/21/2019 06:25:15 PM EDT Occlusion and stenosis of bilateral carotid arteries [facility] Occlusion and stenosis of bilateral wheat tid arteries CLTX DSTL RADIAL FX/EPIPHYSL SEP W/O MANJ 09/01/2019 1 2:00:00 AM EDT [facility] ([facility]) US URINE CAPACITY MEASURE 07/28/2019 12:00:00 AM EST eCW1 ([facility]) Voiding Trial 07/06/2019 12:00:00 AM EST eCW1 ([facility]) Results ID Date Data Source [id number] 08/08/2020 11:50:00 AM EST [facility] Name Value Range Interpretation Code Description Data Maria rce(s) Supporting Document(s) SARS coronavirus 2 RNA Not Detected [facility] [place] This lab was ordered by [facility] and reported by [facility]. ID Date Data Source [id number] 06/30/2020 10:51:00 AM EST [facility] Name Value Range Interpretation Code Description Data Maria rce(s) Supporting Document(s) SARS coronavirus 2 RNA [Presence] in Res piratory specimen by URIEL with probe detection NEGATIVE [facility] This lab was ordered by [facility] a nd reported by [facility]. ID Date Data Source [id number] 03/19/2020 04:03:00 PM EDT [facility] ([facility]) Name Value Range Interpretation Code Description Data Maria rce(s) Supporting Document(s) Carotid Ultrasound Right Laboratory test result [facility] ([facility]) ID Date Data Source [id number] 02/09/2020 04:45:01 PM EDT [facility] NT INFORMATIONPatient MRN Name Date of Age Gend*PT [id number] Radha Isaac 1950 69 years M IPPT Location Admission Date/Time Visit ID Attending [id number] 02/04/20 0539 --- --- EPI ID CSN Admitting Provider [id number] Bryant Albrecht MD([id number]) Attestation signed by Bryant Albrecht MD at 02/09/2020 4:44 PMI saw and evaluated the patient and reviewed pa's note. I agree with thehistory, physical and medical decision making with the following additions,exceptions, and/or observations:Signature: RENITA Wickate: February 09, 2020Time: 4:44 PM --Surgical Discharge SummaryRadha IsaacMRN: [id number] date: 02/04/2020Admitting Physician: RENITA Wickischarge date and time:Discharge Orders Placed(From admission, onward) Start Ordered 02/05/20 1012 Discharge patient OnceExpected Discharge Date: 02/05/20Discharge Disposition: Home or Self Care 02/05/20 1015Discharge Physician: Sohail Washington Diagnosis: Occlusion and stenosis of right carotid arterySecondary Diagnoses:Active Hospital Problems Diagnosis Date Noted Occlusion and stenosis of right carotid arteryResolved Hospital ProblemsNo resolved problems to display.Discharge Medications:Your medication listSTART taking these medications Instructions Last Dose Given Morning Afternoon Evening Bedtime As NeededHYDROcodone-acetaminophen 5-325 MG per tabletCommonly known as: NORCO Take 1 tablet by mouth every 6 (six) hours as needed for pain Max Daily Amount:4 tabletsCONTINUE taking these medications Instructions Last Dose Given Morning Afternoon Evening Bedtime As Neededalbuterol 108 (90 Base) MCG/ACT inhalerCommonly known as: PROVENTIL HFA;VENTOLIN HFA Inhale 2 puffs every 4 (four) hours as needed for wheezingalbuterol (2.5 MG/3ML) 0.083% nebulizer solu tionCommonly known as: PROVENTIL Take 2.5 mg by nebulization every 6 (six) hours as needed for shortness ofbreathamLODIPine 10 MG tabletCommonly known as: NORVASC Take 10 mg by mouth dailyaspirin EC 81 MG EC tablet Take 81 mg by mouth dailycalcitriol 0.25 MCG capsuleCommonly known as: ROCALTROL Take 0.5 mcg by mouth 5 (five) times a week on Thursday, Thursday, Thursday,, and Thursdaycarvedilol 25 MG tabletCommonly known as: COREG Take 50 mg by mouth 2 (two) times a daychlorthalidone 25 MG tabletCommonly known as: HYGROTEN Take 25 mg by mouth dailyclopidogrel 75 MG tabletCommonly known as: PLAVIX Take 75 mg by mouth dailyfamotidine 20 MG tabletCommonly known as: PEPCID Take 20 mg by mouth 2 (two) times a dayfolic acid 1 MG tabletCommonly known as: FOLVITE Take 1 mg by mouth dailyhydrALAZINE 100 MG tabletCommonly known as: APRESOLINE Take 100 mg by mouth 3 (three) times a dayisosorbide mononitrate 30 MG 24 hr tabletCommonly known as: IMDUR Take 30 mg by mouth 2 (two) times a dayphenytoin 100 MG ER capsuleCommonly known as: DILANTIN Take 300 mg by mouth nightlyramelteon 8 MG tabletCommonly known as: ROZEREM Take 8 mg by mouth nightlysodium bicarbonate 650 MG tablet Take 1,300 mg by mouth 3 (three) times a daysodium polystyrene 15 GM/60ML suspensionCommonly known as: KAYEXALATE Take 15 g by mouth once a week On Thursdaytamsulosin 0.4 MG CapsCommonly known as: FLOMAX Take 0.4 mg by mouth dailyULORIC 80 MG TabsGeneric drug: Febuxostat Take 80 mg by mouth dailySTOP taking these medicationsacetaminophen 500 MG tabletCommonly known as: TYLENOLWhere to Get Your MedicationsThese medications were sent to [facility] [address] [place], [place] - [address] [place] [address] HYDROcodone-acetaminophen 5-325 MG per tabletIndication for Admission: right carotid stenosisHospital Course & Complications: uneventfulPast Medical History:Past Medical History:Diagnosis Date Anemia Carotid artery disease s/p LCEA. Dr Albrecht Carotid Ultrasound 03/28/2019 CUS - 2.3 cm area of shadowing over HARLEY. 16- 49% stenosis of LICA. CHF (congestive heart failure) Chronic kidney disease sees Dr. Spring - stg 4 Constipation COPD (chronic obstructive pulmonary disease) Coronary artery disease f/u by Dr. Stern Diabetes mellitus type 2-not on meds Echocardiogram 11/2016 EF 60-65%, moderate LVH, grade II diastolic dysfunction, mild mean joourksl76 mmHg, mild MS mean gradient 4 mmHg, elevated CVP and at least mild PHTN Echocardiogram 12/12/2014 EF 65 to 70%, moderate LVH with hyperdynamic LV systolic function, grade 2diastolic dysfunction, with trivial AR, mildly elevated CVP, unable toestimate PA P Echocardiogram 03/15/2012 Dr. Soriano: EF 60%, mildly dilated left atrium, impairment of elevateddiastolic function, aortic valve sclerosis without stenosis and very mild AI,mitral annular calcification with mild MR, normal PA P Echocardiogram 10/12/2018 Normal left ventricular (LV) size with mild left ventricular hypertrophy.(LVH) and probably normal LV systolic function, grade 1 diastolic dysfunction.Degenerative abnormalities of aortic and mitral valves but without significantfunctional dysfunction. Normal central venous pressure. Unable to estimatepulmonary artery pressure. GERD (gastroesophageal reflux disease) Gout History of ETOH abuse History of GI bleed Hyperkalemia monitored takes Kayexalate Hyperlipidemia Hypertension MRA Brain Brain MRA ([facility]) - Unremarkable MRA Neck 04/05/2019 ([facility]) - HARLEY <50% stenosis, LICA unremarkable Nicotine abuse Quit 1999 Nuclear Stress Test 06/2019 Prominent diaphragmatic attenuation. LVH, LVEF 57%. Normal perfusion.Probably normal pharmacologic SPECT Occlusion and stenosis of right carotid artery PFTs 08/10/2014 FVC 72%, FEV1 74%, DLCO 55%. Hemoglobin 10.3 Regadenoson nuclear stress test 05/2015 EF 64%, normal perfusion Right frontal lobe mass 06/29/2018 hemorrhage Seizures tonic/clonic -patient denies Sleep apnea has not tolerated CPAP Stroke 2018 hemmorhagic Valvular disease Mild /MS by echo 11/2016Surgical Procedures:Procedure(s) with comments:ENDARTERECTOMY, RIGHT CAROTID, WITH DIGITAL FLOW VISUALIZATION KISHOR (Right) - denis Wooten (try to move out of room 17)Significant Diagnostic Studies:Treatments:Discharge Exam:Vitals: Temp: [97.7 F-98.1 F] 98.1 FHeart Rate: [61-78] 74Resp: [11-24] 18BP: (115-187)/(51-79) 164/67Arterial Line BP: (142-165)/(48-62) 142/48Items needing special attention:Discharged Condition:goodDisposition: Home or Self CareSignature: Adi Guillen PADate: February 05, 2020Time: 10:15 AM Name Value Range Interpretation Code Description Data Maria rce(s) Supporting Document(s) ID Date Data Source [id number] 02/06/2020 09:00:36 AM EDT [facility] Name Value Range Interpretation Code Description Data Maria rce(s) Supporting Document(s) XR OR CAROTID CEREBRAL RIGHT [facility] ID Date Data Source [id number] 02/05/2020 01:15:00 PM EDT [facility] ([facility]) Name Value Range Interpretation Code Description Data Maria rce(s) Supporting Document(s) Hematocrit [Volume Fraction] of Blood by Automated count 23.9 % 4 1.0-53.0 [facility] ([facility]) ID Date Data Source [id number] 02/05/2020 12:50:00 PM EDT [facility] ([facility]) Name Value Range Interpretation Code Description Data Maria rce(s) Supporting Document(s) Sodium [Moles/volume] in Serum or Plasma 140 mmol/L 136-145 [facility] ([facility]) Potassium [Moles/volume] in Serum or Plasma 4.7 mmol/L 3.6-5.2 [facility] ([facility]) Chloride [Moles/volume] in Serum or Plasma 109 mmol/L 100-108 [facility] ([facility]) Anion gap in Serum or Plasma 11 mmol/L 7-16 [facility] ([facility]) Carbon dioxide, total [Moles/volume] in Serum or Plasma 20 mmol/L 22 -31 [facility] ([facility]) Creatinine [Mass/volume] in Serum or Plasma 2.18 mg/dL 0.80-1.30 [facility] ([facility]) Urea nitrogen/Creatinine [Mass Ratio] in Serum or Plasma 16.5 1 0.0-20.0 [facility] ([facility]) Urea nitrogen [Mass/volume] in Serum or Plasma 36 mg/dL 7-24 [facility] ([facility]) Calcium [Mass/volume] in Serum or Plasma 8.1 mg/dL 8.4-10.2 [facility] ([facility]) Glucose [Mass/volume] in Serum or Plasma 120 mg/dL 70-99 [facility] ([facility]) Glomerular filtration rate/1.73 sq M pre dicted among non-blacks [Volume Rate/Area] in Serum or Plasma by Creatinine-based formula (MDRD) 30 [facility] ([facility]) Glomerular filtration rate/1.73 sq M pre dicted among blacks [Volume Rate/Area] in Serum or Plasma by Creatinine-based formula (MDRD) 37 [facility]) Glomerular filtration rate/1.73 sq M pre dicted among non-blacks [Volume Rate/Area] in Serum or Plasma by Creatinine-based formula (MDRD) Laboratory test result [facility] ([facility]) -- NORMAL KIDNEY FUNCTION OR MILD DISEASE - GFR >OR= 60 CHRONIC KIDNEY DISEASE - GFR 15 - 59 RENAL FAILURE - GFR <15 Est. GFR calculation based on the MDRD study equation, which assumes a steady state for creatinine. Est. GFR should not be used for medication dosing. ID Date Data Source [id number] 02/05/2020 07:34:01 AM EDT [facility] INFORMATIONPatient MRN Name Date of Age Gend*PT [id number] Radha Isaac 1950 69 years M IPPT Location Admission Date/Time Visit ID Attending [id number] 02/04/20 0539 --- Bryant Albrecht MD ([id number]) EPI ID CSN Admitting Provider [id number] Bryant Albrecht MD([id number]) [place] [address] OPERATIVE REPORT OPNAME: RADHA ISAAC#: [id number] #: [id number] ADMISSION DATE: 02/04/2020DOB: 1950 SEX: M PT TYPE: I SURACCT #: [id number] CARE PHYSICIAN: ASH OVERTON OF OPERATION: 02/04/2020DIAGNOSIS:Symptomatic right carotid stenosis.PROCEDURE:Right carotid endarterectomy, bovine patch angioplasty, operativeangiogram.SURGEON:Dr. Albrecht.OEM SALES MANAGER:JENNIFER Lares.ANESTHESIA:General.DESCRIPTION OF PROCEDURE:Patient anesthetized. Right neck was painted with ChloraPrep and draped insterile fashion. Carotid bifurcation was exposed through an obliqueincision and he was given systemic heparin. Opening was made from thecommon carotid across the bulb where there was a severe calcific stenosis.Shunts inserted. Plaque was sharply transected at the common carotid,everted from the external carotid, feathered from the internal carotid.Bovine patch was sewn in place with 6-0 Prolene suture. Doppler signalsand operative angiogram was satisfactory. Some protamine was given.Benny-Garrido brought out the inferior apex incision, closed in layers withabsorbable suture material. The blood loss was a few 100 mL. Sponge andneedle count correct. He was brought to recovery room stable.JOE WICK/KASH Job #: [id number] DOC #: [id number] Name Value Range Interpretation Code Description Data Maria rce(s) Supporting Document(s) ID Date Data Source [id number] 02/05/2020 09:16:03 AM EDT [facility] Name Value Range Interpretation Code Description Data Maria rce(s) Supporting Document(s) HCT 23.9 % (41.0-53.0) L [facility] ID Date Data Source [id number] 02/05/2020 08:50:45 AM EDT [facility] Name Value Range Interpretation Code Description Data Maria rce(s) Supporting Document(s) SODIUM 140 mmol/L (136-145) [facility] POTASSIUM 4.7 mmol/L (3.6-5.2) [facility] CHLORIDE 109 mmol/L (100-108) H [facility] CO2 20 mmol/L (22-31) L [facility] ANION GAP 11 mmol/L (7-16) [facility] UREA NITROGEN 36 mg/dL (7-24) H [facility] CREATININE 2.18 mg/dL (0.80-1.30) H [facility] BUN/CREAT RATIO 16.5 RATIO (10.0-20.0) [facility] GLUCOSE 120 mg/dL (70-99) H [facility] CALCIUM 8.1 mg/dL (8.4-10.2) L [facility] GFR 30 ml/min/1.73m2 (>59) L [facility] GFR ( AMER) 37 ml/min/1.73m2 (>59) L [facility] GFR INTERPRETATION [facility] --NORMAL KIDNEY FUNCTION OR MILD DISEASE - GFR >OR= 60CHRONIC KIDNEY DISEASE - GFR 15 - 59RENAL FAILURE - GFR <15 Est. GFR calculation based on the MDRDstudy equation, which assumes a steadystate for creatinine. Est. GFR should notbe used for medication dosing. ID Date Data Source [id number] 02/04/2020 07:50:36 PM EDT [facility] Name Value Range Interpretation Code Description Data Maria rce(s) Supporting Document(s) HCT 23.4 % (41.0-53.0) L Lab [facility] ID Date Data Source [id number] 02/04/2020 05:42:00 PM EDT [facility] ([facility]) Name Value Range Interpretation Code Description Data Maria rce(s) Supporting Document(s) Laboratory test finding (navigational concept) 128 mg/dL 70-99 [facility] ([facility]) PERFORMED BY [facility] ID Date Data Source [id number] 02/04/2020 01:43:13 PM EDT [facility] Name Value Range Interpretation Code Description Data Maria rce(s) Supporting Document(s) POC NOVA GLU 128 mg/dL (70-99) H Lab [facility] PERFORMED BY [facility] ID Date Data Source [id number] 02/04/2020 12:41:00 PM EDT [facility] ([facility]) Name Value Range Interpretation Code Description Data Maria rce(s) Supporting Document(s) Potassium [Moles/volume] in Serum or Plasma 4.8 mmol/L 3.6-5.2 [facility] ([facility]) ID Date Data Source [id number] 02/04/2020 12:18:00 PM EDT [facility] ([facility]) Name Value Range Interpretation Code Description Data Maria rce(s) Supporting Document(s) Leukocytes [#/volume] in Blood by Automated count 5.2 10*3/uL 4.1-11. 0 [facility] ([facility]) Erythrocytes [#/volume] in Blood by Automated count 2.56 10*6/uL 4.60 -6.10 [facility] ([facility]) Hematocrit [Volume Fraction] of Blood by Automated count 22.0 % 4 1.0-53.0 [facility] ([facility]) Hemoglobin [Mass/volume] in Blood 7.8 g/dL 13.5-18.0 [facility] ([facility]) Erythrocyte mean corpuscular volume [Entitic volume] by Auto mated count 86.0 fL 80.0-95.0 [facility] ([facility] ) Erythrocyte mean corpuscular hemoglobin concentration [Mass/volume] by Automated count 35.3 g/dL 32.0-36.0 [facility] ([facility]) Erythrocyte mean corpuscular hemoglobin [Entitic mass] by Automated count 30.4 pg 27.0-32.0 [facility] ([facility]) Erythrocyte distribution width [Ratio] by Automated count 16.0 % 10.5-14.5 [facility] ([facility]) Platelet mean volume [Entitic volume] in Blood by Rishi-Vanna 7.4 fL 7.1-10.7 [facility] ([facility]) Platelets [#/volume] in Blood by Automated count 235 10*3/uL 150-450 [facility] ([facility]) ID Date Data Source [id number] 02/04/2020 12:00:00 PM EDT [facility] ([facility]) Name Value Range Interpretation Code Description Data Maria rce(s) Supporting Document(s) Poc Hematocrit 24 % 41.0-53.0 [facility] ([facility] PERFOR[facility] BY [facility] ID Date Data Source [id number] 02/04/2020 12:00:00 PM EDT [facility] ([facility]) Name Value Range Interpretation Code Description Data Maria rce(s) Supporting Document(s) Poc Glucose (iStat) 147 70-99 [facility] ([facility] BY [facility] ID Date Data Source [id number] 02/04/2020 12:00:00 PM EDT [facility] ([facility]) Name Value Range Interpretation Code Description Data Mraia rce(s) Supporting Document(s) Potassium [Moles/volume] in Serum or Plasma 4.8 3.6-5.2 [facility] ([facility]) PERFORMED BY [facility] ID Date Data Source [id number] 02/08/2020 03:33:23 PM EDT Lab [address] [address]Qiw# Surgical Pathology ReportAccession #:[id number](s) ReceivedA: Right carotid contentsClinical Diagnosis and HistoryOcclusion and stenosis of right carotid artery DIAGNOSISCAROTID ARTERY, RIGHT, ENDARTERECTOMY: FIBROCALCIFIC ATHEROSCLEROTIC PLAQUE. GROSS DIAGNOSIS ONLY. Gross DescriptionThe specimen is received in formalin labeled "right carotid contents" andconsists of a bifurcated portion of heath-yellow tubular atheroscleroticplaque material me asuring 3.5 cm in length with a diameter of up to 1.5cm. The shorter branch measures 1.8 cm in length. Sectioning revealsmarked calcification. No sections are submitted. [email or web address]/mwg Reported: 02/08/2020Electronically Signed Out By Eddie Crane MD [facility] [place] [id number] component performed at [facility], Histopathology, [address] [place] [address], [phone].Reported at [facility], [address] [place] [address], [phone]. This report may includeimmunohistochemical or in-situ hybridization results. Testing wasdeveloped and the performance characteristics determined by [employer] as required by CLIA '88. The FDA hasdetermined that approval for specific use is not necessary for clinicaluse. The quality of Hematoxylin and Eosin stains and as applicable, forall immunohistochemical and/or special stains, including positive andnegative controls, were reviewed and considered appropriate.ICD codes I65.29CPT codesA: 97647F Name Value Range Interpretation Code Description Data Maria rce(s) Supporting Document(s) ID Date Data Source [id number] 02/04/2020 10:00:56 AM EDT [facility] NT INFORMATIONPatient MRN Name Date of Age Gend*PT [id number] Radha Isaac 1950 69 years M SDAPT Location Admission Date/Time Visit ID Attending Provider --- --- --- --- EPI ID CSN Admitting Provider [id number] ---AirwayPatient location during procedure: ORUrgency: electiveDifficult airway: noAdvanced airway equipment used: noStaffingPerformed by: Elisha Ga CRNAAnesthesiologist: Juan Quezada, Domenicoications and Patient ConditionIndications for airway management: anesthesia and airway protectionPreoxygenated: yesPatient position: sniffingIn-line stabilization: yesMask ventilation: 2 - vent by mask + OA or adjuvant +/- NMBAFinal Airway/ApproachesFinal airway type: ETTNumber of attempts at final approach: 1Number of other approaches attempted: 0Final Airway DetailsFinal ETT airway: ETT - singleCuffed: yesTechnique used for successful ETT placement: direct laryngoscopy and regularstyletCricoid pressure: yesRSI: noInsertion site: oralBlade type/size: MAC 3.5ETT size: 8.0 mmMeasured from: lipsETT to lips: 23 cmPlacement verified by: chest auscultation and + [id number]: CTA and equal breath sounds bilateralGrade view: grade IIa - partial view of glottisAdditional NotesI performed this patients' endotracheal intubation which required substantiallyincreased work beyond that of the typical emergency endotracheal intubationbased on the need to use COVID-19 precautions which required increased time andskill employed through use of personal protective equipment in preparing for andduring the intubation as well as the additional time spent properly disposing ofthe equipment upon completion of the procedure. Name Value Range Interpretation Code Description Data Maria rce(s) Supporting Document(s) ID Date Data Source [id number] 02/04/2020 08:01:19 AM EDT [facility] Name Value Range Interpretation Code Description Data Maria rce(s) Supporting Document(s) POC POTASSIUM 4.8 MMOL/L (3.6-5.2) [facility] PERFORMED BY [facility] ID Date Data Source [id number] 02/04/2020 08:01:19 AM EDT [facility] Name Value Range Interpretation Code Description Data Maria rce(s) Supporting Document(s) POC GLU 147 MG/DL (70-99) H [facility] PERFOR[facility] BY [facility] ID Date Data Source [id number] 02/04/2020 08:01:19 AM EDT [facility] Name Value Range Interpretation Code Description Data Maria rce(s) Supporting Document(s) POC HCT 24 % (41.0-53.0) L [facility] ID Date Data Source [id number] 02/06/2020 07:32:38 AM EDT [facility] SPEC EXP DATE 02/07/2020PATI ENT ABO/Rh A POSITIVEANTIBODY SCREEN NEGATIVETESTING SITE PERFORMED AT [address] [place] [address] [id number] BANK COMMENT BLOOD TYPE CONFIRMED.UNIT NUMBER [id number] COMPONENT TYPE LEUKOPOOR RED CELLSUNIT DIVISION 00STATUS OF UNIT REL FROM ALLOCTRANSFUSION STATUS OK TO TRANSFUSECROSSMATCH RESULT COMPATIBLEUNIT NUMBER [id number] COMPONENT TYPE LEUKOPOOR RED CELLSUNIT DIVISION 00STATUS OF UNIT TRA NSFUSEDTRANSFUSION STATUS OK TO TRANSFUSECROSSMATCH RESULT COMPATIBLE Name Value Range Interpretation Code Description Data Maria rce(s) Supporting Document(s) TYPE AND SCREEN [facility] ID Date Data Source [id number] 02/04/2020 08:42:23 AM EDT [facility] Name Value Range Interpretation Code Description Data Maria rce(s) Supporting Document(s) POTASSIUM 4.8 mmol/L (3.6-5.2) [facility] ID Date Data Source [id number] 02/04/2020 08:18:37 AM EDT [facility] Name Value Range Interpretation Code Description Data Maria rce(s) Supporting Document(s) WBC 5.2 10*3/uL (4.1-11.0) [facility] [place] RBC 2.56 10*6/uL (4.60-6.10) L [facility] HGB 7.8 g/dL (13.5-18.0) L [facility] HCT 22.0 % (41.0-53.0) L [facility] MCV 86.0 fL (80.0-95.0) [facility] MCH 30.4 pg (27.0-32.0) [facility] MCHC 35.3 g/dL (32.0-36.0) [facility] RDW 16.0 % (10.5-14.5) H [facility] PLT 235 10*3/uL (150-450) [facility] MPV 7.4 fL (7.1-10.7) [facility] ID Date Data Source [id number] 02/04/2020 06:53:33 AM EDT [facility] NT INFORMATIONPatient MRN Name Date of Age Gend*PT [id number] Radha Isaac 1950 69 years M SDAPT [facility] Ad[facility] --- Bryant Albrecht MD([id number]) EPI ID CSN Admitting Provider [id number] Bryant Albrecht MD([id number])Progressive carotid stenosis renal disease chronic anemia risk cea strokebleeding nerve trauma explained Name Value Range Interpretation Code Description Data Maria rce(s) Supporting Document(s) ID Date Data Source [id number] 02/04/2020 06:52:28 AM EDT [facility] NT INFORMATIONPatient MRN Name Date of Age Gend*PT [id number] Radha Isaac 1950 69 years M SDAPT Location Admission Date/[facility] --- Bryant Albrecht MD([id number]) EPI ID CSN Admitting Provider [id number] Bryant Albrecht MD([id number])H&P and daily progress notes since admission reviewed. Changes to the patient'scondition since admission have been documented in the progress notes and noted.Bryant Albrecht MD6:52 AM Name Value Range Interpretation Code Description Data Maria rce(s) Supporting Document(s) ID Date Data Source [id number] 01/30/2020 09:10:58 AM EDT [facility] NT INFORMATIONPatient MRN Name Date of Age Gend*PT [id number] Radha Isaac 1950 69 years M OPPT Location Admission Date/Time Visit ID Attending Provider --- --- --- Bryant Albrecht MD([id number]) EPI ID CSN Admitting Provider [id number] ---HISTORY PHYSICALName: Radha Isaac : 1950 Sex: male Care Provider: Petros BERGER Physician: Dr. Tillmanformant: The patient who is a poor historian.Chief Complaint: I will have right carotid fixed".HISTORY OF PRESENT ILLNESS:This is a 69 years old white male was a history ofCAD, HTN, HLD, CHF, COPD, CKD stage IV, DM type II, GERD, ENEDINA and stroke [id number]. Patient lost right eye vision after stroke. He underwent multiplediagnostic tests and was found to have occlusion and stenosis of right carotidartery. Neck MRI dated 10/21/2019 revealed about a 50-60% narrowing of theproximal aspect of the right internal carotid artery. This appears increasedsince the previous exam. Patient denies slurred speech, numbness, tingling orweakness. Subsequently he was referred to Dr. Albrecht for surgical intervention.The patient met with Dr. Albrecht, options were discussed and they have elected tounder go ENDARTERECTOMY, RIGHT CAROTID, WITH DIGITAL FLOW VISUALIZATION KISHOR on02/04/2020.PAST MEDICAL HISTORY:Past Medical History:Diagnosis Date Anemia Carotid artery disease s/p LCEA. Dr Albrecht Carotid Ultrasound 03/28/2019 CUS - 2.3 cm area of shadowing over HARLEY. 16- 49% stenosis of LICA. CHF (congestive heart failure) Chronic kidney disease sees Dr. Spring - stg 4 Constipation COPD (chronic obstructive pulmonary disease) Coronary artery disease f/u by Dr. Stern Diabetes mellitus type 2-not on meds Echocardiogram 11/2016 EF 60-65%, moderate LVH, grade II diastolic dysfunction, mild mean [id number] mmHg, mild MS mean gradient 4 mmHg, elevated CVP and at least mild PHTN Echocardiogram 12/12/2014 EF 65 to 70%, moderate LVH with hyperdynamic LV systolic function, grade 2diastolic dysfunction, with trivial AR, mildly elevated CVP, unable toestimate PA P Echocardiogram 03/15/2012 Dr. Soriano: EF 60%, mildly dilated left atrium, impairment of elevateddiastolic function, aortic valve sclerosis without stenosis and very mild AI,mitral annular calcification with mild MR, normal PA P Echocardiogram 10/12/2018 Normal left ventricular (LV) size with mild left ventricular hypertrophy.(LVH) and probably normal LV systolic function, grade 1 diastolic dysfunction.Degenerative abnormalities of aortic and mitral valves but without significantfunctional dysfunction. Normal central venous pressure. Unable to estimatepulmonary artery pressure. GERD (gastroesophageal reflux disease) Gout History of ETOH abuse History of GI bleed Hyperkalemia monitored takes Kayexalate Hyperlipidemia Hypertension MRA Brain Brain MRA ([facility]) - Unremarkable MRA Neck 04/05/2019 ([facility]) - HARLEY <50% stenosis, LICA unremarkable Nicotine abuse Quit 1999 Nuclear Stress Test 06/2019 Prominent diaphragmatic attenuation. LVH, LVEF 57%. Normal perfusion.Probably normal pharmacologic SPECT Occlusion and stenosis of right carotid artery PFTs 08/10/2014 FVC 72%, FEV1 74%, DLCO 55%. Hemoglobin 10.3 Regadenoson nuclear stress test 05/2015 EF 64%, normal perfusion Right frontal lobe mass 06/29/2018 hemorrhage Seizures tonic/clonic -patient denies Sleep apnea has not tolerated CPAP Stroke 2018 hemmorhagic Valvular disease Mild /MS by echo 11/2016PA SURGICAL HISTORY:Past Surgical History:Procedure Laterality Date BRAIN TUMOR EXCISION 2018 CATARACT EXTRACTION EXTRACAPSULAR W/ INTRAOCULAR LENS IMPLANTATION Bilateral COLONOSCOPY COLONOSCOPY N/A 10/02/2015 Procedure: COLONOSCOPY W ANESTHESIA; Surgeon: Damian Menon MD; Location:[facility] Endoscopy; Service: Colorectal; Laterality: N/A; Left carotid endarterectomy Left 07/02/2015 Dr Albrecht MULTIPLE TOOTH EXTRACTIONS partial upper denture PANENDOSCOPY VASCULAR SURGERY Left 07/02/2015 Procedure: CAROTID ENDARTERECTOMY W DVF AND C ARM LEFT ; Surgeon: MD Josiah; Location: [facility]; Service: Vascular; Laterality: Left; WISDOM TOOTH EXTRACTIONALLERGIES: No Known Drug AllergiesMEDICATIONS:Prior to Admission medicationsMedication Sig Start Date End Date Taking? Authorizing Provideracetaminophen (TYLENOL) 500 MG tablet Take 1,000 mg by mouth daily as needed forpain 07/09/18 Historical Provider, MDalbuterol (PROVENTIL HFA;VENTOLIN HFA) 108 (90 BASE) MCG/ACT inhaler Inhale 2puffs every 4 (four) hours as needed for wheezing Historical Provider, Edwardlbuterol (PROVENTIL) (2.5 MG/3ML) 0.083% nebulizer solution Take 2.5 mg bynebulization every 6 (six) hours as needed for shortness of breath HistoricalProvider, EdwardmLODIPine (NORVASC) 5 MG tablet Take 5 mg by mouth daily HistoricalProvider, Edwardspirin EC 81 MG EC tablet Take 81 mg by mouth daily Historical Provider, Robalcitriol (ROCALTROL) 0.25 MCG capsule Take 0.5 mcg by mouth 5 (five) times aweek on Thursday, Thursday, Thursday, , and Thursday Historical Provider,Robarvedilol (COREG) 25 MG tablet Take 50 mg by mouth 2 (two) times a dayHistorical Provider, Robhlorthalidone (HYGROTEN) 25 MG tablet Take 25 mg by mouth daily HistoricalProvider, Roblopidogrel (PLAVIX) 75 MG tablet Take 75 mg by mouth daily HistoricalProvider, Febuxostat (ULORIC) 80 MG TABS Take 80 mg by mouth daily 03/30/17 HistoricalProvider, folic acid (FOLVITE) 1 MG tablet Take 1 mg by mouth daily HistoricalProvider, gemfibrozil (LOPID) 600 MG tablet Take 600 mg by mouth 2 (two) times a daybefore meals Historical Provider, hydrALAZINE (APRESOLINE) 100 MG tablet Take 100 mg by mouth 3 (three) times aday 05/29/19 Historical Provider, isosorbide mononitrate (IMDUR) 30 MG 24 hr tablet Take 30 mg by mouth 2 (two)times a day Historical Provider, Huehenytoin (DILANTIN) 100 MG ER capsule Take 300 mg by mouth nightly 10/25/19Historical Provider, Channingodium bicarbonate 650 MG tablet Take 650 mg by mouth 4 (four) times a dayHistorical Provider, tamsulosin (FLOMAX) 0.4 MG CAPS Take 0.4 mg by mouth daily 07/09/18 HistoricalProvider, MDSocial Histor yTobacco Use Smoking status: Former Smoker Packs/day: 3.00 Years: 31.00 Pack years: 93.00 Types: Cigarettes Last attempt to quit: 02/21/2000 Years since quittin.9 Smokeless tobacco: Never UsedSubstance Use Topics Alcohol use: Yes Comment: occasional Prior heavy ETOH use no longer since 2018 Drug use: NeverFamily HistoryProblem Relation Age of Onset Prostate cancer Father Healthy, No Significant History Mother Malig Hyperthermia Neg HxREVIEW OF SYSTEMS:Constitution: Reports intentional 50 pound weight loss in the last year. Deniesfatigue, fever or chills. Caffeine intake: 4-5 cups/day.HEENT: Right eye lost vision. Denies double vision, dizziness, tinnitus,dysphagia or headaches.Respiratory: Occasional shortness of breath secondary to COPD. Denies cough,yellow sputum production or wheezing.Cardiovascular: Denies any chest pain, pressure or tightness. Denies anyparoxysmal nocturnal dyspnea or orthopnea.Muscle/Skeletal System: Denies any muscle ache, joint ache or weakness.Neurologic: Denies any numbness, tingling, tremors or syncope.GI: Denies any nausea, vomiting, diarrhea, constipation or melena.: Denies any dysuria, hematuria or nocturia.Endocrine: Denies polyuria, polydipsia or polyphagia. Denies any heat or coldintolerance, or night sweats.Hematology: Denies any bleeding or bruising tendencies.DNR Status: Full Code per the patient.HCP: Yes per patient.PHYSICAL EXAM:General: He is a 69 years old, pleasant white male, in no acute distress at timeof examination. Vitals on arrival to the office are BP 130/80 (BP Location: Leftupper arm, Patient Position: Sitting) | Pulse 62 | Ht 1.74 m (5' 8.5") | Wt93.4 kg (205 lb 12.8 oz) | SpO2 99% | BMI 30.84 kg/m Body mass index is30.84 kg/m ..Skin is pink warm and dry.HEENT: He is normocephalic, atraumatic. Sunman conjunctivae. Anicteric sclerae.Pupils are equal, round, reactive to light and accommodation. Extraocularmovements are intact. Ears: Without drainage or les ion. Mouth: He has upperplate. Dentition is in good repair. He has a grade 4 airway. Neck is supplemidline without cervical adenopathy. There is no tonsillo pharyngeal congestion.Mucous membranes are moist. There are no oral lesions. No jugular distention. Nocarotid bruit.CHEST/BREAST: A/P less than transverse. Breast exam declined.LUNGS: Clear to auscultation. No wheezes, rhonchi or crackles.HEART: Rate rhythm regular. S1, S2. 2/4 known murmur best heard at R and L SB.No rub or gallop.ABDOMEN: Bowel sounds positive times four. Soft, non tender. No reboundtenderness. No hepatosplenomegaly. Negative CVAT.GENITAL/RECTAL: Deferred.MUSCLE/SKELETAL: Strength is 5/5. Hatchery Worker are equal.NEUROLOGICALLY: Cranial nerves II through XII are grossly intact.VASCULAR: Pulses are symmetrical. No edema.Anesthesia complications: deniesSteroid use: He denies any oral steroid therapy for three weeks or greaterwithin the last 3 months.CSHA Frailty Scale :: 4/10 Vulnerable (while not dependent on others for dailyhelp, often symptoms limit activities. A common complaint is being "slowed up",and /or being tired during the day).IMPRESSION and PLAN:Primary Diagnosis: Occlusion and stenosis of right carotid artery surgeryas per Dr. Albrecht.Secondary Diagnosis and Plan:1. Hypertension Continuation of prior to admission anti-hypertensivemedications unless precluded by clinical status.2. COPD Monitor oxygen saturation Albuterol nebulizer as needed Continue homemedications when clinically appropriate3. Sleep apnea Obstructive Patient to continue with use of home CPAP /BiPAP4. Diabetes Type 2 Routine blood glucose monitoring. Sliding scaleinsulin coverage while inpatient. Hold oral diabetic medications.5. CKD Stage IV Monitoring of lab values including creatinine withadjustments to hydration if needed Avoidance of nephrotoxic medicationsMedication review and appropriate renal adjustments to be made by Pharmacist perrenal protocol6. GI prophylaxis Per surgeon7. DVT prophylaxis Early ambulation. Pneumatic compression device.Subcutaneous Heparin or LMW Heparin if clinically indicated8. Congestive heart failure monitor daily fluid status. Adjust IV fluidrates based on fluid status as needed diuretics to optimize fluid status.Continuation of home oral diuretics when clinically appropriate.9. CAD EKG obtained in preadmission testing or external EKG within 6 months,continuation of cardiac medications postoperatively based on clinical status.Based on above medical co morbidities, length of stay may be prolonged greaterthan previously anticipated.ALLERGIES:Patient has no known drug allergies.01/30/2020 9:10 AMLyudmila Vivek, NPThis document or parts of this document, were dictated using MinuteKey speaking software. A reasonable attempt at proofreading has beenmade to minimize errors. Please call with any questions or corrections. Name Value Range Interpretation Code Description Data Maria rce(s) Supporting Document(s) ID Date Data Source [id number] 01/30/2020 01:53:49 PM EDT [facility] [facility] Name Value Range Interpretation Code Description Data Maria rce(s) Supporting Document(s) HEMOGLOBIN A1C @ <3.8 % (4.0-6.0) L [facility] [place] [facility] Performed using Siemens [place] Gl[place] immunoassa y.Care must be taken when interpreting FpD4mafoayez in patients with a hemoglobin variantor decreased erythrocyte lifespan. Values 5.7 - 6.4% suggest prediabetes.Values >=6.5% are diagnostic for diabetes.REFERENCE: DIABETES CARE 2018: 41(S13-S27).RESULT VERIFIED BY REPEAT TESTING. EST AVERAGE GLUCOSE [facility] HbA1c RESULTS <4.0% ARE UNUSUAL ANDMAY I NDICATE THE PRESENCE OF ANINTERFERING Hb VARIANT. ID Date Data Source [id number] 01/30/2020 12:15:54 PM EDT [facility] Name Value Range Interpretation Code Description Data Maria rce(s) Supporting Document(s) SODIUM 142 mmol/L (136-145) [facility] [facility] POTASSIUM 4.4 mmol/L (3.6-5.2) [facility] [facility] CHLORIDE 108 mmol/L (100-108) [facility] [facility] CO2 25 mmol/L (22-31) [facility] [facility] ANION GAP 9 mmol/L (7-16) [facility] [facility] UREA NITROGEN 60 mg/dL (7-24) H [facility] [facility] CREATININE 2.62 mg/dL (0.80-1.30) H [facility] [place] [facility] BUN/CREAT RATIO 22.9 RATIO (10.0-20.0) H [facility] GLUCOSE 150 mg/dL (70-99) H [facility] [place] [facility] CALCIUM 8.3 mg/dL (8.4-10.2) L [facility] [place] [facility] TOTAL PROTEIN 6.3 g/dL (6.4-8.2) L [facility] [place] [facility] ALBUMIN 3.5 g/dL (3.2-4.5) [facility] [facility] GLOBULIN 2.8 g/dL (2.7-4.3) [facility] [facility] ALB/GLOB RATIO 1.3 RATIO [facility] [facility] ALKALINE PHOSPHATASE 97 U/L (45-117) [facility] BILIRUBIN,TOTAL 0.4 mg/dL (0.0-1.0) [facility] [facility] PLEASE NOTE:Total bilirubin results may be falselyelevated in patients taking Eltrombopag. AST (SGOT) 14 U/L (11-39) [facility] [facility] ALT (SGPT) 19 U/L (12-78) [facility] [facility] GFR 24 ml/min/1.73m2 (>59) L [facility] [facility] GFR ( AMER) 30 ml/min/1.73m2 (>59) L [facility] [facility] GFR INTERPRETATION [facility] --NORMAL KIDNEY FUNCTION OR MILD DISEASE - GFR >OR= 60CHRONIC KIDNEY DISEASE - GFR 15 - 59RENAL FAILURE - GFR <15 Est. GFR calculation based on the MDRDstudy equation, which assumes a steadystate for creatinine. Est. GFR should notbe used for medication dosing. ID Date Data Source [id number] 01/30/2020 11:54:53 AM EDT [facility] Name Value Range Interpretation Code Description Data Maria rce(s) Supporting Document(s) PT 10.7 s (9.2-11.9) [facility] [facility] INR 1.03 [facility] [facility] SUGGESTED THERAPEUTIC RANGES USING INR F ORSTABILIZED ANTICOAGULATED PATIENTS:STANDARD DOSE THERAPY INR 2.0-3.0 DVT, PE, PREVENT DVT OR EMBOLISMHIGH DOSE THERAPY INR 2.5-3.5 PREVENT EMBOLISM FROM MECHANICAL HEART VALVE ID Date Data Source [id number] 01/30/2020 11:35:30 AM EDT [facility] [facility] Name Value Range Interpretation Code Description Data Maria rce(s) Supporting Document(s) WBC 6.7 10*3/uL (4.1-11.0) [facility] [place] [facility] [place] RBC 2.59 10*6/uL (4.60-6.10) L [facility] [place] [facility] HGB 7.9 g/dL (13.5-18.0) L [facility] [place] [facility] HCT 23.3 % (41.0-53.0) L [facility] [place] [facility] MCV 90.0 fL (80.0-95.0) [facility] [place] [facility] MCH 30.4 pg (27.0-32.0) [facility] [place] [facility] MCHC 33.8 g/dL (32.0-36.0) [facility] [facility] RDW 16.5 % (10.5-14.5) H [facility] [place] [facility] PLT 268 10*3/uL (150-450) [facility] [place] [facility] MPV 7.7 fL (7.1-10.7) [facility] [facility] ID Date Data Source [id number] 01/31/2020 12:42:42 PM EDT [facility] [place] [facility] Name Value Range Interpretation Code Description Data Maria rce(s) Supporting Document(s) SPECIMEN DESCRIPTION [facility] STAPH SCREEN RESULTS (ONEGSA) [facility] COMMENT [facility] [place] [facility] GENE TO DETECT STAPH AUREUS. (2) RT-P CR WAS PERFORMED FOR THE mecA AND SCCmec GENES TO DETECT METHICILLIN RESISTANCE IN STAPH AUREUS. ID Date Data Source [id number] 01/30/2020 07:00:00 AM EDT [facility] Name Value Range Interpretation Code Description Data Maria rce(s) Supporting Document(s) SARS coronavirus 2 RNA [facility] This lab was ordered by [facility] and reported by [facility]. ID Date Data Source [id number] 01/31/2020 08:10:18 AM EDT [facility] [place] [facility] Name Value Range Interpretation Code Description Data Maria rce(s) Supporting Document(s) SARS-COV-2 URIEL [facility] [facility] Not DetectedReference range: Not Detecte d Testing was performed using the jose(R) SARS-CoV-2 test. This test was developed and its performance characteristics determined by [facility]. This test has not been FDA cleared or approved. This test has been authorized by FDA under an Emergency Use Authorization (EUA). This test is only authorized for the duration of time the declaration that circumstances exist justifying the authorization of the emergency use of in vitro diagnostic tests for detection of SARS-CoV-2 virus and/or diagnosis of COVID-19 infection under section 564(b)(1) of the Act, 21 U.S.C. 360bbb-3(b)(1), unless the authorization is terminated or revoked sooner. When diagnostic testing is negative, the possibility of a false negative result should be considered in the context of a patient's recent exposures and the presence of clinical signs and symptoms consistent with COVID-19. An individual without symptoms of COVID-19 and who is not shedding SARS-CoV-[address] to have a negative (not detected) result in this assay. Performed At: [facility] [id number] Victoriano John MD Ph:[phone] ID Date Data Source [id number] 11/16/2019 11:36:01 AM EDT [facility]FORMATIONPatient [facility] Name Date of Age Gend*PT [id number] Radha Isaac 1950 69 years M OPPT Location Admission Date/Time Visit ID Attending Provider --- --- --- Bryant Albrecht MD([id number]) EPI ID CSN Admitting Provider [id number] ---PRE-ADMISSION TESTING HISTORY & PHYSICALName: Radha Isaac : 1950 Sex: male Care Provider: ASH SPRING MDAttending Physician: Dr. Tillmanformant: Radha Isaac, Reliable Yes; additional information obtainedfrom EMRHistory of present illness: Radha Isaac is a 69 years old White orCaucasian male with occlusion and stenosis of right carotid artery. He has ahistory of hemorrhagic stroke in June 2018 and was treated at [facility]. He developed residual right eye blindness several months following thestroke. His neurologist, Dr. Dalal in [place] was concerned for right ICAstenosis. He underwent carotid ultrasound which revealed 2.3 cm area ofshadowing over right internal carotid artery. Further evaluation with MRArevealed about 50 to 60% narrowing of the proximal aspect of the HARLEY. Hecurrently reports fatigue as well as dyspnea with exertion. He is currently onASA and Plavix.He has recently been worked up for anemia and GI blood loss. He states that heunderwent endoscopy and colonoscopy last week. His last stress test was June2019. He has appointment today with cardiology for clearance.With above findings, he was referred to Dr. Albrecht for surgical evaluation. Thepatient met with Dr. Albrecht, options were discussed and they have elected tounder go ENDARTERECTOMY, RIGHT CAROTID, WITH DIGITAL FLOW VISUALIZATION KISHOR on11/21/19.Past Medical History:Diagnosis Date Anemia Carotid artery disease s/p LCEA. Dr Albrecht Carotid Ultrasound 03/28/2019 CUS - 2.3 cm area of shadowing over HARLEY. 16- 49% stenosis of LICA. Further evalwith MRA to be scheduled. CHF (congestive heart failure) 2013 Chronic kidney disease sees Dr. Spring - stg 4 Constipation COPD (chronic obstructive pulmonary disease) Diabetes mellitus type 2-not on meds Echocardiogram 11/2016 EF 60-65%, moderate LVH, grade II diastolic dysfunction, mild mean gikmirfq49 mmHg, mild MS mean gradient 4 mmHg, elevated CVP and at least mild PHTN Echocardiogram 12/12/2014 EF 65 to 70%, moderate LVH with hyperdynamic LV systolic function, grade 2diastolic dysfunction, with trivial AR, mildly elevated CVP, unable toestimate PA P Echocardiogram 03/15/2012 Dr. Soriano: EF 60%, mildly dilated left atrium, impairment of elevateddiastolic function, aortic valve sclerosis without stenosis and very mild AI,mitral annular calcification with mild MR, normal PA P GERD (gastroesophageal reflux disease) Gout History of ETOH abuse Hyperkalemia monitored takes Kayexalate Hyperlipidemia Hypertension MRA Brain Brain MRA ([facility]) - Unremarkable MRA Neck 04/05/2019 ([facility]) - HARLEY <50% stenosis, LICA unremarkable Nicotine abuse Quit 2000 Occlusion and stenosis of right carotid artery ENEDINA (obstructive sleep apnea) 06/29/2018 PFTs 08/10/2014 FVC 72%, FEV1 74%, DLCO 55%. Hemoglobin 10.3 Regadenoson nuclear stress test 05/2015 EF 64%, normal perfusion Right frontal lobe mass 06/29/2018 hemorrhage Seizures tonic/clonic Sleep apnea has not tolerated CPAP so far Stroke hemmorhagic Valvular disease Mild /MS by echo 11/2016Pa Surgical History:Procedure Laterality Date BRAIN TUMOR EXCISION 2018 COLONOSCOPY COLONOSCOPY N/A 10/02/2015 Procedure: COLONOSCOPY W ANESTHESIA; Surgeon: Damian Menon MD; Location:[facility] Endoscopy; Service: Colorectal; Laterality: N/A; Left carotid endarterectomy Left 07/02/2015 Dr Albrecht MULTIPLE TOOTH EXTRACTIONS partial upper denture PANENDOSCOPY VASCULAR SURGERY Left 07/02/2015 Procedure: CAROTID ENDARTERECTOMY W DVF AND C ARM LEFT ; Surgeon: MD Josiah; Location: [facility]; Service: Vascular; Laterality: Left; WISDOM TOOTH EXTRACTIONNo Known Drug AllergiesPrior to Admission medicationsMedication Sig Start Date End Date Taking? Authorizing Provideracetaminophen (TYLENOL) 500 MG tablet Take 1,000 mg by mouth daily as needed forpain 07/09/18 Historical Provider, MDalbuterol (PROVENTIL HFA;VENTOLIN HFA) 108 (90 BASE) MCG/ACT inhaler Inhale 2puffs every 4 (four) hours as needed for wheezing Historical Provider, MDalbuterol (PROVENTIL) (2.5 MG/3ML) 0.083% nebulizer solution Take 2.5 mg bynebulization every 6 (six) hours as needed for shortness of breath HistoricalProvider, MDamLODIPine (NORVASC) 5 MG tablet Take 5 mg by mouth daily HistoricalProvider, MDaspirin EC 81 MG EC tablet Take 81 mg by mouth daily Historical Provider, Robalcitriol (ROCALTROL) 0.25 MCG capsule Take 0.5 mcg by mouth 5 (five) times aweek on Thursday, Thursday, Thursday, , and Thursday Historical Provider,Robarvedilol (COREG) 25 MG tablet Take 50 mg by mouth 2 (two) times a dayHistorical Provider, Robhlorthalidone (HYGROTEN) 25 MG tablet Take 25 mg by mouth daily HistoricalProvider, Roblopidogrel (PLAVIX) 75 MG tablet Take 75 mg by mouth daily HistoricalProvider, Febuxostat (ULORIC) 80 MG TABS Take 40 mg by mouth daily 03/30/17 HistoricalProvider, folic acid (FOLVITE) 1 MG tablet Take 1 mg by mouth daily HistoricalProvider, gemfibrozil (LOPID) 600 MG tablet Take 600 mg by mouth 2 (two) times a daybefore meals Historical Provider, hydrALAZINE (APRESOLINE) 100 MG tablet Take 100 mg by mouth 3 (three) times aday 05/29/19 Historical Provider, isosorbide mononitrate (IMDUR) 30 MG 24 hr tablet Take 30 mg by mouth 2 (two)times a day Historical Provider, MDphenytoin (DILANTIN) 100 MG ER capsule Take 300 mg by mouth nightly 05/18/19Historical Provider, MDramelteon (ROZEREM) 8 MG tablet Take 8 mg by mouth nightly HistoricalProvider, MDsodium bicarbonate 650 MG tablet Take 650 mg by mouth 4 (four) times a dayHistorical Provider, tamsulosin (FLOMAX) 0.4 MG CAPS Take 0.4 mg by mouth daily 07/09/18 HistoricalProvider, Edwardllopurinol (ZYLOPRIM) 300 MG tablet Take 300 mg by mouth daily 11/16/19Historical Provider, Robolchicine (COLCRYS) 0.6 MG tablet 3 (three) times a day As needed 11/16/19Historical Provider, fosfomycin (MONUROL) 3 g PACK once a week 02/16/19 11/16/19 Historical Provider,MDSteroid use: He denies any oral steroid therapy for three weeks or greaterwithin the last 3 months.Social HistoryTobacco Use Smoking status: Former Smoker Packs/day: 3.00 Years: 31.00 Pack years: 93.00 Types: Cigarettes Last attempt to quit: 02/21/2000 Years since quittin.7 Smokeless tobacco: Never UsedSubstance Use Topics Alcohol use: Not Currently Comment: occasional Prior heavy ETOH use no longer in past year Drug use: NoFamily HistoryProblem Relation Age of Onset Prostate cancer Father Malig Hyperthermia Neg HxROS:Constitutional: Denies fever, chills, general malaise or recent weight change.Reports some day time fatigueHEENT: Denies recent hearing changes. Blind right eye. Wears upper dentures.Respiratory: Denies cough, wheezing, or hemoptysis. Reports exertional dyspneaCardiovascular: Denies chest pain or pressure, or palpitations.Gastrointestinal: Denies any abdominal pain, nausea, vomiting, diarrhea,constipation or melena.Genitourinary: Denies dysuria, hematuria or difficulty urinating.Extremities/Musculoskeletal: Denies current joint pain or muscle weakness.Neurological: Denies dizziness, seizures, speech difficulty, or headaches.Psychiatric: Denies anxiety or depression.Endocrine: Denies night sweats or temperature intolerance.Hematological: Denies unusual bruising or bleeding disorder.Integumentary: Denies current rashes or lesions.Allergic/Immunology: Denies current hives/itchingAnesthesia complications: NoneCSHA Frailty Scale :: 4/10 Vulnerable (while not dependent on others for dailyhelp, often symptoms limit activities. A common complaint is being "slowed up",and /or being tired during the day).Stop Bang Questionnaire - diagnosed OSAPhysical Exam:Vitals on arrival to the office are BP 138/65 (BP Location: Right upper arm,Patient Position: Sitting) | Pulse 61 | Ht 1.753 m (5' 9") | Wt 92.1 kg (203lb 1.6 oz) | SpO2 99% | BMI 29.99 kg/m Body mass index is 29.99 kg/m ..General: Alert and oriented. NAD, cooperative.Skin: Warm and dry.Head: Atraumatic, normocephalic.Eyes: PERRL. Sclerae anicteric, conjunctivae clear bilaterally.Ears: Hearing grossly intact, external ears normal.Nose: Symmetric.Mouth: No loose teeth, Dentition is fair, oropharynx without exudates orlesions.Neck: Grade 1 airway. Supple, no lymphadenopathy, ROM appears normal. Carotidbruit present on rightHeart: S1S2 regular rate and rhythm.No rub or gallop. Grade 3 systolic murmurLungs: CTA bilaterally. Respiratory effort non-labored.Abdomen: Obese. Soft, non-distended. No rebound tenderness is noted on exam. Nolumps or hernias visible.Back: Normal curvature, no CVA tenderness.Musculoskeletal: No muscle atrophy or weakness appreciated .Vascular/Ext: No JVD, calf tenderness or LE edema. Distal pulses intact.Neurologic: Cranial nerves II-XII grossly intact. No focal deficits appreciated.Genital/rectal/breast exam: Deferred to PCP.Assessment and Plan:Primary Diagnosis/Indication: Occlusion and stenosis of right carotid artery -surgery as per Dr. Albrecht.Secondary Dx:1. Morbid Obesity Body mass index is 29.99 kg/m .2. CAD EKG obtained in Pre-Admission testing or external EKG within 6 months,Continuation of cardiac medications post-operatively based on clinical status3. Hypertension Continuation of prior to admission anti-hy pertensivemedications unless precluded by clinical status.4. Congestive heart failure unspecified Monitor daily fluid status (Input/ Output totals) Adjust IV fluid rates based on fluid status PRN diuretics tooptimize fluid status Continuation of home oral diuretics when clinicallyappropriate5. COPD Monitor oxygen saturation Albuterol nebulizer as needed Continue homemedications when clinically appropriate6. Sleep apnea Obstructive Patient to continue with use of home CPAP /BiPAP7. Diabetes Type 2 Routine blood glucose monitoring. Sliding scaleinsulin coverage while inpatient. Hold oral diabetic medications.8. CKD Stage IV Monitoring of lab values including creatinine withadjustments to hydration if needed Avoidance of nephrotoxic medicationsMedication review and appropriate renal adjustments to be made by Pharmacist perrenal protocol9. GI prophylaxis Per xenmjqj81. DVT prophylaxis Early ambulation. Pneumatic compression device.Subcutaneous Heparin or LMW Heparin if clinically indicatedCAD/CHF- Patient has appointment with cardiology today for clearancePatient unsure of Plavix instructions from surgeons office- Instructed to callsurgeons office today for clarification of Plavix instructions. He verbalizedunderstanding and agreed to this.Code status: Full Code per patientHCP: None per patientThe patient and/or HCP has been encouraged to contact appropriate medical staffwith any questions or concerns he may have in the interim. Further plan per theattending physician.Signature: Virginie Dangelo 201911:23 AM Name Value Range Interpretation Code Description Data Maria rce(s) Supporting Document(s) ID Date Data Source [id number] 11/16/2019 10:30:42 AM EDT [facility] Name Value Range Interpretation Code Description Data Maria rce(s) Supporting Document(s) EKG [facility] JOXLHe1zXkXIMpVbm0StZtJrBETmEF4wkpo1D3P8dCZfX6EgcZWlf5zuR5EyV9WoNXEpRDGJHU7IkMLo jb2 [file] Virgie/i+B6M/rONGkZ9kB+ZOh7O2Ux3dtXPD+W9ksBwSNhmXV4JGmwSNbid6QsG/RcDgQkbffBWk4UwXrs mAb/1ZmT0H9Me58l7lhqojt3yB78WSwB8sTuuzy0Iv 4AbcgW+Rylee/PqJUD76D1CpjFAz1vNdTshrxja3V9JOiGOxtl0J3vPCP3j8CAZ9tJG/StsS+++yB/Alba T10yOO8EsUYI1LlpE0lqqfG980/du10xujiZ7iqjL++kZFtdAAgEX6UY71lByI+lKFJiKi2RkxLzNw4W cdUpWu8ZtpQkWe3qGPs9rm7/asO/2lKyIfmfEj2ly1 /a8K92c+GSIGfKdnbsZdcpeIdoq823hquLTeZqyshpzYjuv3Gs0g43i6x3Uff+1YZ/lnIq4BX7P+5+94 Z/kjyMLoQ9891hE9x6QK9gu4/ayL/ayL/ayL/ayL/ayL/ayL/ayL/ayL/ayL/ayL/ayL/ayL/ayL/ayL /ayL/ayL/iRomJnNY2Yfho/diN/Jose Enrique/Jose Enrique/Ksd16/b [file] 2eAwdHm6oq714Q+5Te/rXL//e4Grh/bPb59d/bd/fvuf8/ev+rYR9tPflRG/T/956e+/036i449b/Consumer Loan Specialist [file] MDAwMDAgbiAKMDAwMDAwMDQwOSAwMDAwMCBuIAowMD DbOENmWJXrCLIyCDPeSJ6lWxPlFNVdMAI9BRPjNCSbQMRjlmJNIMSxCANxXJk8NNUwOWGwFCJzUWzwAJ HiOKBqIEE5XQRbGBUnEN9tAoVfZYEoBLZ7PdUjURVzONYyeqPCGASaXIToBAR7NsYaLVWkPJBvPEqbDF GuZBXmNNhwFPMcPAYlIH7aTgYxDBZiMMUnTNppCHIo LOEmljYRAORpLMMnOFMpSfHySUPrECDgAJsoLKUlWTQaPhO0HTSxHFOtVS4fTdJmFMNkHPL6HUwlAQSm XXVrogMCNIBgWWKrJVjtZTMeNGBaTJVtFYomZKJiIEAmGRR3LXTrGDJmLY4gXzYbIDIwKLOwKIDoGlX0 AhToSpARaFRzyWgwfyj7EIboJ6i8MTPpWFgoXM6qva RmQDOeKcknXe4hdTD3WEVrDflHFe9Ce3LfaxF8wyFxOlBrScK3WiApIW7Q ID Date Data Source [id number] 11/17/2019 10:26:12 AM EDT [facility] Name Value Range Interpretation Code Description Data Maria rce(s) Supporting Document(s) SPECIMEN DESCRIPTION [facility] STAPH SCREEN RESULTS (ONEGSA) [facility] COMMENT [facility] GENE TO DETECT STAPH AUREUS. (2) RT-P CR WAS PERFORMED FOR THE mecA AND SCCmec GENES TO DETECT METHICILLIN RESISTANCE IN STAPH AUREUS. ID Date Data Source [id number] 11/16/2019 05:32:33 PM EDT [facility] Name Value Range Interpretation Code Description Data Maria rce(s) Supporting Document(s) SODIUM 139 mmol/L (136-145) [facility] POTASSIUM 5.7 mmol/L (3.6-5.2) H [facility] CHLORIDE 110 mmol/L (100-108) H [facility] CO2 17 mmol/L (22-31) L [facility] ANION GAP 12 mmol/L (7-16) [facility] UREA NITROGEN 71 mg/dL (7-24) H [facility] CREATININE 3.18 mg/dL (0.80-1.30) H [facility] BUN/CREAT RATIO 22.3 RATIO (10.0-20.0) H [facility] GLUCOSE 117 mg/dL (70-99) H [facility] CALCIUM 7.9 mg/dL (8.4-10.2) L [facility] TOTAL PROTEIN 6.8 g/dL (6.4-8.2) [facility] ALBUMIN 3.8 g/dL (3.2-4.5) [facility] GLOBULIN 3.0 g/dL (2.7-4.3) [facility] ALB/GLOB RATIO 1.3 RATIO [facility] ALKALINE PHOSPHATASE 71 U/L (45-117) [facility] BILIRUBIN,TOTAL 0.4 mg/dL (0.0-1.0) [facility] PLEASE NOTE:Total bilirubin results may be falselyelevated in patients taking Eltrombopag. AST (SGOT) 10 U/L (11-39) L [facility] ALT (SGPT) 13 U/L (12-78) [facility] GFR 20 ml/min/1.73m2 (>59) L [facility] GFR ( AMER) 24 ml/min/1.73m2 (>59) L [facility] [place] jocelynn MARSHALL GFR INTERPRETATION [facility] --NORMAL KIDNEY FUNCTION OR MILD DISEASE - GFR >OR= 60CHRONIC KIDNEY DISEASE - GFR 15 - 59RENAL FAILURE - GFR <15 Est. GFR calculation based on the MDRDstudy equation, which assumes a steadystate for creatinine. Est. GFR should notbe used for medication dosing. ID Date Data Source [id number] 11/16/2019 03:36:08 PM EDT [facility] Name Value Range Interpretation Code Description Data Maria rce(s) Supporting Document(s) PT 10.6 s (9.2-11.9) [facility] [place] [facility]SHALL INR 1.02 [facility] SUGGESTED THERAPEUTIC RANGES USING INR F ORSTABILIZED ANTICOAGULATED PATIENTS:STANDARD DOSE THERAPY INR 2.0-3.0 DVT, PE, PREVENT DVT OR EMBOLISMHIGH DOSE THERAPY INR 2.5-3.5 PREVENT EMBOLISM FROM MECHANICAL HEART VALVE ID Date Data Source [id number] 11/16/2019 03:05:21 PM EDT [facility] Name Value Range Interpretation Code Description Data Maria rce(s) Supporting Document(s) WBC 6.3 10*3/uL (4.1-11.0) [facility] [place] RBC 2.73 10*6/uL (4.60-6.10) L [facility] HGB 8.2 g/dL (13.5-18.0) L [facility] HCT 25.0 % (41.0-53.0) L [facility] MCV 91.6 fL (80.0-95.0) [facility] MCH 30.2 pg (27.0-32.0) [facility] MCHC 33.0 g/dL (32.0-36.0) [facility] RDW 16.2 % (10.5-14.5) H [facility] [place] [facility] PLT 266 10*3/uL (150-450) [facility] [place] [facility] Ray MPV 8.3 fL (7.1-10.7) [facility] ID Date Data Source [id number] 11/16/2019 11:28:20 PM EDT [facility] Name Value Range Interpretation Code Description Data Maria rce(s) Supporting Document(s) HEMOGLOBIN A1C @ <3.8 % (4.0-6.0) L [facility] [place] [facility] Performed using Siemens Old Glory immunoassa y.Care must be taken when interpreting DeZ8cgpevpbi in patients with a hemoglobin variantor decreased erythrocyte lifespan. Values 5.7 - 6.4% suggest prediabetes.Values >=6.5% are diagnostic for diabetes.REFERENCE: DIABETES CARE 2018: 41(S13-S27).RESULT VERIFIED BY REPEAT TESTING. EST AVERAGE GLUCOSE [facility] HbA1c RESULTS <4.0% ARE UNUSUAL ANDMAY I NDICATE THE PRESENCE OF ANINTERFERING Hb VARIANT. ID Date Data Source [id number] 11/04/2019 10:40:00 AM EDT [facility] ([facility], ) Name Value Range Interpretation Code Description Data Maria rce(s) Supporting Document(s) Surgical pathology study [facility] FINAL DIAGNOSIS A-Gastric biopsy: Gastric mucosa with reactive/reparative changes and mild chronic inflammation. No H.Pylori is identified. B-Colon, transverse polyp, polypectomy: Tubular adenoma. 11/07/2019 - 929 CLINICAL DIAGNOSIS Anemia, chronic blood loss 11/06/2019 - 075 GROSS DIAGNOSIS A - Received in formalin labeled "gastric biopsy, R/O H. pylori" consists of two fragments of tissue, 0.2 x 0.1 x 0.1 cm in aggregate. All in one. B - Received in formalin labeled "biopsy transverse colon polyp" consists of a fragment of tissue, 0.2 x 0.1 x 0.1 cm. All in one. -OA 11/06/2019 - 075 Signed DEANDRA SOTELO MD 11/07/2019 0930 ID Date Data Source [id number] 10/25/2019 11:00:00 AM EDT [facility] Name Value Range Interpretation Code Description Data Maria rce(s) Supporting Document(s) SARS CORONAVIRUS 2 RNA [facility] This lab was ordered by [facility] and reported by [facility]. ID Date Data Source [id number] 10/21/2019 03:01:38 PM EDT [address] [address]Gcbkmee Name: RADHA ISAACDOB: 1950ex: MOrdering Provider: BRYANT Youngblood Prov: BRYANT Chan Provider: BRYANT Morrow Performed: MRA NECK WO CONTRASTExam Date: 10/21/2019 14:25MRN: [id number] Number: [id number] Class: OutpatientAccount #: [id number] for Exam: Occlusion and stenosis of bilateral carotid arteriesTechnique: MRA images obtained on a 1.5 brisa scanner and Maximum Intensity Projection Reconstructions.Maximum Intensity Projections (MIP) and/or other multiplanar luis ges images were created and reviewed.Comparison: MRA neck 04/05/2019.Findings: Findings:MRA neck:Right common carotid artery: Unremarkable. No significant stenosis or occlusion. No dissection.Right internal carotid artery: There is approximately a 50-60% narrowing seen of the proximal aspect of the right internal carotid artery which appears increased since the prior study.Right external carotid artery: Unremarkable.Right vertebral artery: Unremarkable. No significant stenosis or occlusion. No dissection.Left common carotid artery: Unremarkable. No significant stenosis or occlusion. No dissection.Left internal carotid artery: Unremarkable. No significant stenosis or occlusion. No dissection.Left external carotid artery: Unremarkable.Left vertebral artery: Dominant Unremarkable. No significant stenosis or occlusion. No dissection.Aortic arch: Unremarkable. Visualized portions of the great vessels demonstrate no significant abnormality.IMPRESSION: 1. There is about a 50-60% narrowing of the proximal aspect of the right internal carotid artery. This appears increased since the previous exam.2. The remainder of exam is unremarkable.Report electronically signed by: ABHISHEK MORALES On 10/21/2019 3:01 PMWorkstation ID: [id number] Name Value Range Interpretation Code Description Data Maria rce(s) Supporting Document(s) ID Date Data Source [id number] 10/21/2019 02:42:06 PM EDT [place] [address]Caydlqd Name: RADHA ISAACDOB: 1950ex: MOrdering Provider: BRYANT Youngblood Prov: BRYANT Chan Provider: BRYANT Morrow Performed: MRA BRAIN WO CONTRASTExam Date: 10/21/2019 14:26MRN: [id number] Number: [id number] Class: OutpatientAccount #: [id number] for Exam: Occlusion and stenosis of bilateral carotid arteriesTechnique: MRA images obtained on a 1.5 brisa scanner and Maximum Intensity Projection Reconstructions.Maximum Intensity Projections (MIP) and/or other multiplanar im ages images were created and reviewed.Comparison: NoneFindings: The petrous, cavernous and supraclinoid portions of both internal carotid arteries are unremarkable. Small focal 50% narrowing noted right A1 segment of the right anterior cerebral artery just at its origin from the right internal carotid artery. The remainder of the right anterior cerebral artery is unremarkable. The left anterior and and both middle cerebral arteries demonstrate flow and have an unremarkable appearance.The posterior cerebral artery is unremarkable bilaterally. There is a dominant left vertebral artery and a diminutive right vertebral artery. Vertebral arteries otherwise overall unremarkable with no significant narrowing seen. The basilar artery is unremarkable.No significant stenosis or occlusion is seen. No aneurysm is noted. Next fieldIMPRESSION: 1. Mild focal narrowing A1 segment right anterior cerebral artery.2. The remainder of the exam is unremarkable.Report electronically signed by: ABHISHEK MOARLES On 10/21/2019 2:42 PMWorkstation ID: [id number] Name Value Range Interpretation Code Description Data Maria rce(s) Supporting Document(s) ID Date Data Source [id number] 08/30/2019 02:15:00 PM EDT [facility] Patient: RADHA ISAAC Observation Rep ort - Phys[facility].VisitID: [id number] [place] [address] [phone], MRegistration Date/Time: 08/30/2019 11:40 Weight:90.7 kg. Height/Length:70 inches. BMI:28.7 PAST HISTORYProblems:CVA - Cerebrovascular Accident.Gout.Heart Disease.Congestive Heart Failure.Diabetes Mellitus.Kidney failure.Upper Extremity Pain.Hypercholesterolemia.Hypertension. Additional Surgeries:Brain surgery.Carotid Surgery. Medications:Isosorbide Mononitrate Oral 30mg, last dose 08/30/19.Rozerem Oral (Tablet 8 mg) 1 tablet, every PM, last dose 08/29/19pm.Dilantin Oral (Capsule 100 mg), last dose 08/29/19.Sodium Bicarbonate Oral unknown, 3x a day, last dose 08/30/19.Folic Acid Oral, daily, last dose 08/30/19.hydrALAZINE HCl Oral (Tablet 100 mg) 1 tablet, 3x a day, last dose 08/30/19.Uloric Oral 120mg, daily, last dose 08/30/19.Albuterol Sulfate Inhalation, PRN.Allopurinol Oral (Tablet 100 mg) 1 tablet, daily.AmLODIPine Besylate Oral (Tablet 5 mg) 1 tablet, daily, last dose 08/30/19.Aspirin Oral (Tablet Chewable 81 mg) 1 tablet, daily, last dose 08/30/19.Carvedilol Phosphate ER Oral 50mg, 2x a day, last dose 08/30/19.Chlorthalidone Oral (Tablet 25 mg) 1 tablet, daily, last dose 08/30/19.Gemfibrozil Oral (Tablet 600 mg) 1 tablet, 2x a day, last dose 08/30/19am.Minoxidil Oral (Tablet 2.5 mg) 1 tablet, daily, last dose 08/30/19.Ventolin HFA Inhalation 2 puffs, as needed. Allergies:None. FAMILY HISTORYNo significant family medical history. (Electronically signed by Shellie Mendoza, P.AJaleel 08/30/2019 14:02) Name Value Range Interpretation Code Description Data Maria e(s) Supporting Document(s) ID Date Data Source [id number] 08/30/2019 12:45:00 PM EDT [facility] DATE OF EXAMINATION: 08/30/2019 11:45 EDT TECHNIQUE: 4 views of the right wrist were obtained. HISTORY: Fall pain FINDINGS: Bones are moderately osteopenic. Moderate osteoarthritis is noted. There is ahairline fracture of the radial styloid. IMPRESSION: Fracture of the radial styloid. Moderate osteopenia and osteoarthritis. Extensive arterial calcification. If there is clinical concern for a scaphoid fracture, a dedicated scaphoid viewand/or repeat radiographs in 7-10 days may be helpful. Electronically signed in PS360 by: Bernadine Ramon M.D. 08/30/2019 12:39 EDT Name Value Range Interpretation Code Description Data Maria rce(s) Supporting Document(s) ID Date Data Source [id number] 08/30/2019 12:39:00 PM EDT [facility] DATE OF EXAMINATION: 08/30/2019 11:50 ED T BRAIN W/O CONTRAST HISTORY: History of brain bleed TECHNIQUE: This CT exam was performed using the following dose reduction techniques:automatic exposure control, adjustment of mA and/or kV according to thepatient's size, and use of iterative reconstruction technique. Standard contiguous axial spiral imaging was obtained from the skull basethrough the vertex without contrast administration and with coronalreformatting. FINDINGS: BRAIN: There is a small to moderate size right frontoparietal encephalomalaciain this patient with right frontal craniotomy. There are no parenchymalhematomas mass effect or midline shift nor any extra-axial collections. Mildatrophy seen IMPRESSION: Mild to moderate size area of encephalomalacia in the right frontoparietal lobewith overlying craniotomy. Electronically signed in PS360 by: Bernadine Ramon M.D. 08/30/2019 12:33 EDT Name Value Range Interpretation Code Description Data Maria rce(s) Supporting Document(s) ID Date Data Source CBC 06/27/2019 12:00:00 AM EST eCW1 ([facility]) Name Value Range Interpretation Code Description Data Maria rce(s) Supporting Document(s) 9.1 13.5-17.5 HEMOGLOBIN eCW1 ([facility]) 3.13 4.30-6.10 RED BLOOD COUNT eCW1 ([facility]) 28.8 42.0-52.0 HEMATOCRIT eCW1 ([facility]) 5.1 4.0-10.0 WHITE BLOOD COUNT eCW1 ([facility]) 31.6 32.0-36.5 MEAN CORPUSCULAR HGB CONC eCW1 ([facility]) 92.0 80.0-96.0 MEAN CORPUSCULAR VOLUME e CW1 ([facility]) 242 150-450 PLATELET COUNT, AUTOMATED eCW1 ([facility]) 29.1 27.0-33.0 MEAN CORPUSCULAR HEMOGLOB IN eCW1 ([facility]) 14.3 11.5-14.5 RED CELL DISTRIBUTION WID TH eCW1 ([facility]) Procedure Social History Code Duration Value Status Description Data Source(s ) Smoking 02/17/2020 12:00:00 AM EDT Patient is a former smoker completed Patient is a former smoker [facility] ([facility]) Alcohol intake 02/04/2020 12:00:00 AM EDT Yes completed [facility] Cigarette pack-years 02/04/2020 12:00:00 AM EDT UNK completed [facility] Cigarettes smoked current (pack per day) - Reported 02/04/20 12:00:00 AM EDT UNK completed [facility] Smoking 02/04/2020 12:00:00 AM EDT Former smoker completed Former smoker [facility] Alcohol intake 01/30/2020 12:00:00 AM EDT Yes completed [facility] Cigarette pack-years 01/30/2020 12:00:00 AM EDT UNK completed [facility] Cigarettes smoked current (pack per day) - Reported 01/30/20 12:00:00 AM EDT UNK completed [facility] Smoking 01/30/2020 12:00:00 AM EDT Former smoker completed Former smoker [facility] Alcohol intake 11/16/2019 12:00:00 AM EDT Not Currently completed [facility] Cigarette pack-years 11/16/2019 12:00:00 AM EDT UNK completed [facility] Cigarettes smoked current (pack per day) - Reported 11/16/19 12:00:00 AM EDT UNK completed [facility] Smoking 11/16/2019 12:00:00 AM EDT Former smoker completed Former smoker [facility] Vital Signs ID Date Data Source UNK Name Value Range Interpretation Code Description Data Source(s) Diastolic blood pressure 72 mm[Hg] 72 mm[Hg] eCW1 ([facility]) Systolic blood pressure 140 mm[Hg] 140 mm[Hg] e CW1 ([facility]) Respiratory rate 18 /min 18 /min eCW1 [facility] Heart rate 77 /min 77 /min eCW1 ([facility]) Body mass index (BMI) [Ratio] 31.76 kg/m2 31.76 kg/m2 eCW1 ([facility]) Body height 68.5 [in_i] 68.5 [in_i] eCW1 ([facility]) Body weight 212 [lb_av] 212 [lb_av] eCW1 ([facility]) Diastolic blood pressure 68 mm[Hg] 68 mm[Hg] eCW1 ([facility]) Systolic blood pressure 118 mm[Hg] 118 mm[Hg] e CW1 ([facility]) Respiratory rate 16 /min 16 /min eCW1 ([facility]) Heart rate 67 /min 67 /min eCW1 ([facility]) Body mass index (BMI) [Ratio] 30.86 kg/m2 30.86 kg/m2 W1 ([facility]) Body height 68.5 [in_i] 68.5 [in_i] eCW1 ([facility]) Body weight 206 [lb_av] 206 [lb_av] eCW1 ([facility]) Body mass index (BMI) [Ratio] 29.4 kg/m2 29.4 k g/m2 [facility] ([facility] Heart rate 66 /min 66 /min [facility] ([facility] Diastolic blood pressure 84 mm[Hg] 84 mm[Hg] [facility] ([facility] Systolic blood pressure 180 mm[Hg] 180 mm[Hg] M EDENT ([facility] Body weight 205.00 [lb_av] 205.00 [lb_av] MEDEN T ([facility] Body height 70 [in_i] 70 [in_i] [facility] ([facility] 5'10" Diastolic blood pressure 80 mm[Hg] 80 mm[Hg] [facility] ([facility]) Systolic blood pressure 190 mm[Hg] 190 mm[Hg] M EDENT ([facility]) Body weight 92.988 kg 92.988 kg [facility] Body mass index (BMI) [Ratio] 29.4 kg/m2 29.4 k g/m2 [facility] ([facility]) Body weight 205.00 [lb_av] 205.00 [lb_av] MEDEN T ([facility]) Body height 70 [in_i] 70 [in_i] MEDENT ([facility]) 5'10" Diastolic blood pressure 86 mm[Hg] 86 mm[Hg] [facility] Systolic blood pressure 152 mm[Hg] 152 mm[Hg] [facility] Body weight 90.720 kg 90.720 kg [facility] ([facility] Body weight 200.00 [lb_av] 200.00 [lb_av] MEDEN T ([facility]) Body height 70 [in_i] 70 [in_i] [facility] ([facility] 5'10" Heart rate 76 /min 76 /min [facility] ([facility] Diastolic blood pressure 90 mm[Hg] 90 mm[Hg] [facility] Systolic blood pressure 180 mm[Hg] 180 mm[Hg] M EDENT ([facility]) Systolic blood pressure 180 mm[Hg] 180 mm[Hg] M EDENT ([facility]) Body mass index (BMI) [Ratio] 28.7 kg/m2 28.7 k g/m2 [facility] ([facility]) Respiratory rate 18 /min 18 /min [facility] Heart rate 73 /min 73 /min [facility] Diastolic blood pressure 54 mm[Hg] 54 mm[Hg] [facility] Systolic blood pressure 113 mm[Hg] 113 mm[Hg] [facility] Oxygen saturation in Arterial blood by Pulse oximetry 96 % 96 % [facility] Body temperature 36.72 Neva 36.72 Neva [facility] Body mass index (BMI) [Ratio] 30.72 kg/m2 30.72 kg/m2 [facility] Body weight 92.987 kg 92.987 kg [facility] Body height 174 cm 174 cm [facility] Oxygen saturation in Arterial blood by Pulse oximetry 99 % 99 % [facility] Body mass index (BMI) [Ratio] 30.84 kg/m2 30.84 kg/m2 [facility] Body weight 93.35 kg 93.35 kg [facility] Body height 174 cm 174 cm [facility] Heart rate 62 /min 62 /min [facility] Diastolic blood pressure 80 mm[Hg] 80 mm[Hg] [facility] Systolic blood pressure 130 mm[Hg] 130 mm[Hg] [facility] Oxygen saturation in Arterial blood by Pulse oximetry 99 % 99 % [facility] Body mass index (BMI) [Ratio] 29.99 kg/m2 29.99 kg/m2 [facility] Body weight 92.126 kg 92.126 kg [facility] Body height 175.3 cm 175.3 cm [facility] Heart rate 61 /min 61 /min [facility] Diastolic blood pressure 65 mm[Hg] 65 mm[Hg] [facility] Systolic blood pressure 138 mm[Hg] 138 mm[Hg] [facility] Body mass index (BMI) [Ratio] 30.4 kg/m2 30.4 k g/m2 [facility] ([facility] ) Body weight 200.00 [lb_av] 200.00 [lb_av] MEDEN T ([facility]) Body height 68 [in_i] 68 [in_i] [facility] ([facility]) 5'8" Body temperature 97.7 [degF] 97.7 [degF] [facility] ([facility]) Diastolic blood pressure mm[Hg] eCW1 ([facility]) Systolic blood pressure 118 mm[Hg] 118 mm[Hg] e CW1 ([facility]) Body temperature 98.3 [degF] 98.3 [degF] eCW1 ( [facility]) Respiratory rate 17 /min 17 /min eCW1 [facility] Heart rate 68 /min 68 /min eCW1 ([facility]) Body mass index (BMI) [Ratio] 30.41 kg/m2 30.41 kg/m2 eCW1 ([facility]) Body height 68.5 [in_us] 68.5 [in_us] eCW1 ([facility]) Body weight Measured 203 [lb_av] 203 [lb_av] eC W1 ([facility]) Body weight 89.813 kg 89.813 kg [facility] Body mass index (BMI) [Ratio] 28.4 kg/m2 28.4 k g/m2 [facility] ([facility], ) Body weight 198.00 [lb_av] 198.00 [lb_av] MEDEN T ([facility], ) Body height 70 [in_i] 70 [in_i] MEDENT ([facility], ) 5'10" Diastolic blood pressure 54 mm[Hg] 54 mm[Hg] [facility] ([facility], ) Systolic blood pressure 128 mm[Hg] 128 mm[Hg] M EDENT ([facility], ) Diastolic blood pressure mm[Hg] eCW1 ([facility]) Systolic blood pressure 138 mm[Hg] 138 mm[Hg] e CW1 ([facility]) Body temperature 98.2 [degF] 98.2 [degF] eCW1 ( [facility]) Respiratory rate 17 /min 17 /min eCW1 ([facility] Heart rate 68 /min 68 /min eCW1 ([facility]) Body mass index (BMI) [Ratio] 29.81 kg/m2 29.81 kg/m2 eCW1 ([facility]) Body height 68.5 [in_us] 68.5 [in_us] eCW1 ([facility]) Body weight Measured 199 [lb_av] 199 [lb_av] eC W1 ([facility]) Diastolic blood pressure 76 mm[Hg] 76 mm[Hg] eCW1 ([facility]) Systolic blood pressure 121 mm[Hg] 121 mm[Hg] e CW1 ([facility]) Body temperature 98.6 [degF] 98.6 [degF] eCW1 ( [facility]) Respiratory rate 18 /min 18 /min eCW1 ([facility] Heart rate 77 /min 77 /min eCW1 ([facility]) Body mass index (BMI) [Ratio] 29.51 kg/m2 29.51 kg/m2 eCW1 ([facility]) Body height 68.5 [in_us] 68.5 [in_us] eCW1 ([facility]) Body weight Measured 197 [lb_av] 197 [lb_av] eC W1 ([facility]) Diastolic blood pressure 72 mm[Hg] 72 mm[Hg] eCW1 ([facility]) Systolic blood pressure 138 mm[Hg] 138 mm[Hg] e CW1 ([facility]) Body temperature 97.2 [degF] 97.2 [degF] eCW1 ( [facility]) Respiratory rate 18 /min 18 /min eCW1 ([facility] Heart rate 66 /min 66 /min eCW1 ([facility]) Body mass index (BMI) [Ratio] 30.26 kg/m2 30.26 kg/m2 eCW1 ([facility]) Body height 68.5 [in_us] 68.5 [in_us] eCW1 ([facility]) Body weight Measured 202 [lb_av] 202 [lb_av] eC W1 ([facility]) Patient Treatment Plan of Care Planned Activity Planned Date Details Description Data Source (s) Cephalexin 500 MG Oral Capsule 07/03/2020 12:00:00 AM EST eCW1 ([facility]) Acetaminophen 325 MG / Hydrocodone Bitartrate 5 MG Ora l Tablet 02/05/2020 12:00:00 AM EDT [facility] Phenytoin sodium 100 MG Extended Release Oral Capsule 10/25/2019 12:00:00 AM EDT [facility] Ciprofloxacin 500 MG Oral Tablet 06/16/2019 12:00:00 AM EST eCW1 ([facility]) Phenytoin sodium 100 MG Extended Release Oral Capsule 05/18/2019 12:00:00 AM EST [facility] Fosfomycin 33.3 MG/ML Oral Suspension 02/16/2019 12:00:00 AM EDT [facility] Acetaminophen 500 MG Oral Tablet 07/09/2018 12:00:00 AM EST [facility] Colchicine 0.6 MG Oral Tablet [facility] ramelteon 8 MG Oral [address] [facility] Gemfibrozil 600 MG Oral Tablet [facility] Allopurinol 300 MG Oral Tablet [facility]
[2020-08-13] MEDS ORDERED: MIDAZOLAM INJ 2MG/2ML VIAL (J2250 PER 1MG) As Ordered ONE (10:03)
[2020-08-13] MEDS ORDERED: LIDOCAINE 2% 100MG/5ML SDV (FOR ANES.) As Ordered ONE (10:03)
[2020-08-13] MEDS ORDERED: ONDANSETRON 4MG/2ML VIAL As Ordered ONE (10:03)
[2020-08-13] MEDS ORDERED: propofoL 200 MG/20 ML VIAL As Ordered ONE (10:03)
[2020-08-13] MEDS ORDERED: fentaNYL 100 MCG/2 ML INJECTION (J3010) As Ordered ONE ×2 (10:03→11:45)
[2020-08-13] MEDS ORDERED: dexameTHASONE 4 MG/ML 1ML VIAL (J1100 PER 1MG) As Ordered ONE (10:03)
[2020-08-13] MEDS ORDERED: ePHEDrine SULFATE 25 MG/5 ML(5MG/ML) SYRINGE As Ordered ONE (11:40)
--- NOTE | 2020-08-13 12:21 | POST-OPPD ---
Postoperative Procedure Note Date Of Procedure: Aug 13, 2020 PREOPERATIVE DIAGNOSIS: Bladder neck contracture POSTOPERATIVE DIAGNOSIS: Bladder neck contracture FINDINGS: Same PROCEDURE: Transurethral incision and transurethral resection of bladder neck SURGEON: Flo Bates M.D. JOINT FINISHER: Nic ANESTHESIA: Gen. SPECIMENS: Bladder neck tissue ESTIMATED BLOOD LOSS: Less than 10 mL REPLACED: None DRAINS: None COMPLICATIONS: None INDICATION FOR OPERATION: This is a 70-year-old male with difficulty voiding. Office cystoscopy showed a severe bladder neck contracture and is therefore brought to the operating room for treatment. POSTOPERATIVE CONDITION: The patient was placed on table in the supine position and given general anesthesia. He is in place and leave lithotomy position, prepped with Betadine paint and draped in an aseptic manner. A 26 Azeri continuous flow resectoscope was then inserted into the meatus after timeout and patient was found to have a very tight bladder neck contracture. The loop element would not pass through the opening so a Moreno knife was used to incise the opening. The loop was then used to resect the opening. The tissues then removed from the bladder and the bladder neck was further incised with a Moreno knife. Hemostasis was achieved with cauterization. The bladder was then drained, cystoscope was removed and the patient was awakened and sent to recovery in stable condition having tolerated the procedure well. No bladder tumors or other mucosal defects were identified. FLO BATES MD Aug 13, 2020 12:21
[2020-08-13] MEDS ORDERED: fentaNYL 100 MCG/2 ML INJECTION (J3010) IV PRN (12:30)
[2020-08-13] MEDS ORDERED: PERCOCET 5MG/325MG TAB PO PRN (12:30)
[2020-08-13] MEDS ORDERED: KETOROLAC TROMETHAMINE 10 MG TAB PO PRN (12:30)
[2020-08-13] MEDS ORDERED: LR 1,000 ML IV SCH (12:30)
[2020-08-13] MEDS ORDERED: ONDANSETRON 4MG/2ML VIAL IV PRN (12:30)
[2020-08-13] MEDS ORDERED: METOCLOPRAMIDE INJ 10MG/2ML VIAL (J2765 PER 1) IV PRN (12:30)
[2020-08-13 14:00] VITALS: BP 182/81
== END 2020-08-13 14:05 | disposition home or self-care (01) ==
LOC: M SDC 08:39
PROVIDERS: ATTEND Urology
DX: N32.0 Bladder-neck obstruction (principal); I10 Essential (primary) hypertension; E78.5 Hyperlipidemia, unspecified; E11.9 Type 2 diabetes mellitus without complications; M10.9 Gout, unspecified; K21.9 Gastro-esophageal reflux disease without esophagitis; Z86.73 Personal history of transient ischemic attack (TIA), and cerebral infarction without residual deficits; Z79.82 Long term (current) use of aspirin; Z79.02 Long term (current) use of antithrombotics/antiplatelets; J44.9 Chronic obstructive pulmonary disease, unspecified; G47.30 Sleep apnea, unspecified; Z79.899 Other long term (current) drug therapy; Z87.891 Personal history of nicotine dependence
CPT/HCPCS: 36415; 52500; 84132; 88305; J1100; J2250; J2405; J3010

== ENCOUNTER → 2020-09-04 | Outpatient (REF) | payer OTHER, MEDICARE ==
[~2020-09-04] MED LIST changes: +ASPI-569 PO; -ASPI81TAEC PO; -LR 1,000 ML IV ONE; -ceFAZolin SOD 2 GM in IV 1 EA IV ONE
[2020-09-04 17:50] LABS: PERCENT SATURATION 29.4 % (19.7-50.0)
== END ==
LOC: M LAB REF 16:55
PROVIDERS: ATTEND Nurse Practitioner Family
DX: D50.9 Iron deficiency anemia, unspecified (principal)

== ENCOUNTER 2020-10-05 11:49 | Observation (INO) | payer OTHER, MEDICARE ==
[2020-10-05] MEDS ORDERED: hydrALAZINE 20MG/ML 1ML VIAL (J0360 PER 20MG) IV ONE (12:20)
[2020-10-05] MEDS ORDERED: RETA4000 INJ (12:33)
[2020-10-05] MEDS ORDERED: CALC1CAP31 PO (12:33)
[2020-10-05 12:45] LABS: BASO % 0.6 % (0.0-1.0); EOS # 0.4 10^3/uL (0.0-0.5); EOS % 5.4 % (0.0-3.0); HEMATOCRIT 30.6 % (42.0-52.0); HEMOGLOBIN 9.9 g/dl (13.5-17.5); LYMPH # 1.3 10^3/uL (1.5-5.0); LYMPH % 18.8 % (24.0-44.0); MEAN CORPUSCULAR HEMOGLOBIN 29.8 pg (27.0-33.0); MEAN CORPUSCULAR HGB CONC 32.4 g/dl (32.0-36.5); MEAN CORPUSCULAR VOLUME 92.2 fl (80.0-96.0); MONO # 0.4 10^3/uL (0.0-0.8); MONO % 5.2 % (2.0-8.0); NEUTROPHILS # 4.9 10^3/uL (1.5-8.5); NEUTROPHILS % 69.4 % (36.0-66.0); PLATELET COUNT, AUTOMATED 239 10^3/uL (150-450); RED BLOOD COUNT 3.32 10^6/uL (4.30-6.10); WHITE BLOOD COUNT 7.1 10^3/uL (4.0-10.0)
--- NOTE | 2020-10-05 12:46 | REP ---
INDICATION: seizure. COMPARISON: Multiple the latest 06/30/2020 TECHNIQUE: Portable FINDINGS: The technique utilized in obtaining the radiograph has magnified the cardiac silhouette and accentuated the interstitial markings. The superior mediastinal structures are midline. The cardiac silhouette is unremarkable in size, shape, and position. The diaphragmatic surfaces of the lungs are regular, and the costophrenic angles are clear. The pulmonary dial are clear. The imaged osseous structures are intact. IMPRESSION: There is no acute cardiopulmonary disease. <Electronically signed by Giuseppe Jackson > 10/05/20 [id number]
[2020-10-05 12:55] LABS: INR 0.99; PROTHROMBIN TIME 13.3 SECONDS (12.5-14.3)
--- NOTE | 2020-10-05 12:56 | REP ---
INDICATION: seizure. COMPARISON: None. TECHNIQUE: Axial CT images with multiplanar reformations. FINDINGS: No acute bleed or acute large vessel territorial infarct. There is evidence of a prior right frontal insult with volume loss and ex vacuo dilatation of the frontal horn of the right lateral ventricle. No mass effect or midline shift. No abnormal fluid collections. There is evidence of a prior right frontal craniotomy. Paranasal sinuses and mastoid air cells are clear. There is atherosclerotic calcification of the intracranial vasculature. IMPRESSION: No acute findings. Old right frontal craniotomy with subjacent tissue loss. <Electronically signed by Chano Marquez > 10/05/20 [id number]
[2020-10-05 13:30] LABS: ALT/SGPT 18 U/L (12-78); BILIRUBIN,TOTAL 0.3 MG/DL (0.2-1.0); BLOOD UREA NITROGEN 63 MG/DL (7-18); CALCIUM LEVEL 8.8 MG/DL (8.8-10.2); CARBON DIOXIDE LEVEL 17 MEQ/L (21-32); CHLORIDE LEVEL 106 MEQ/L (98-107); CK-MB VALUE MASS 3.5 NG/ML (<3.6); CPK CREATINE PHOSPHOKINASE 78 U/L (39-308); GLOMERULAR FILTRATION RATE 18.6 (>49); GLUCOSE, FASTING 245 MG/DL (70-100); MB/CK RELATIVE INDEX 4.49 (< OR =4); PHENYTOIN (DILANTIN) 7.8 UG/ML (10.0-20.0); POTASSIUM SERUM 5.6 MEQ/L (3.5-5.1); SODIUM LEVEL 135 MEQ/L (136-145); TOTAL PROTEIN 7.2 GM/DL (6.4-8.2); TROPONIN I < 0.02 NG/ML (< 0.10)
[2020-10-05] MEDS ORDERED: PHENYTOIN INJ 250 MG/5 ML VIAL (J1165) IV ONE (13:55)
[2020-10-05] MEDS ORDERED: NS 500 ML IV ONE (13:55)
[2020-10-05] MEDS ORDERED: ACET1TAB55 PO (15:09)
[2020-10-05] MEDS ORDERED: KEPP250T5 PO (15:09)
[2020-10-05] MEDS ORDERED: AMMO12CR7 TOP (15:09)
[2020-10-05] MEDS ORDERED: SODI650T PO (15:09)
[2020-10-05] MEDS ORDERED: ALBUTEROL SULFATE 2.5 MG/0.5 ML INH NEB SOLN INH PRN (15:25)
[2020-10-05] MEDS ORDERED: ACETAMINOPHEN TAB 650MG DOSE (2X325MG) PO PRN (15:25)
--- NOTE | 2020-10-05 15:27 | HPE ---
HISTORY AND PHYSICAL DATE OF ADMISSION: 10/05/2020 PRIMARY CARE PROVIDER: Dr. Sabino Mayers HISTORY: Christopher Isaac is a 70-year-old admitted with a seizure. Had a similar episode in June. This admission basically follows the same pattern. His current medical problems mostly date from a right frontal hematoma discovered June 2018, resected by neurosurgery at [facility], pathology consistent with subacute infarction. He was on Dilantin. He has had seizures intermittently since then. He was admitted after being found by his unresponsive in postictal state. His Dilantin level is subtherapeutic. He is now returning to his baseline mental status. He was quite postictal on arrival with an elevated lactate from the seizures. He has a history of hypertension. He had hypertensive emergency in the emergency room in June. He is hypertensive with this seizure as well. He had an extensive workup by Dr. Holly in June, which included a Doppler renal ultrasound that showed no significant renal artery stenoses. His blood pressure rarely is usually well controlled when he is not postictal. He has stage IV chronic kidney disease and is followed by Dr. Mayers, whom he identifies as his primary care provider. Baseline GFR is around 20. His other past medical history shows BPH, obstructive sleep apnea ([place]ED[place]), coronary artery disease, type 2 diabetes, hypertension. SURGICAL HISTORY: 1. Bilateral carotid endarterectomies. 2. Frontal lobe hematoma resection. 3. Bilateral cataract extractions. SOCIAL HISTORY: He does not smoke or drink any alcohol. He is . No illicit street drugs. REVIEW OF SYSTEMS: He denies currently chest pain, shortness of breath, headache. MEDICATIONS: List is currently being reconciled. It looks currently to be: - albuterol as needed - amlodipine 10 mg daily - aspirin 81 mg daily - calcitriol 0.75 mcg six days a week - carvedilol 50 mg twice a day - chlorthalidone 25 mg daily - Plavix 75 mg daily - Uloric 80 mg daily - ferrous sulfate 325 mg daily - folic acid 1 mg daily - hydralazine 100 mg three times a day - hydroxyzine as needed - Imdur 60 mg twice a day - Keppra 250 mg twice a day - Dilantin 300 mg at bedtime - Rozerem 8 mg every night - sodium bicarbonate 1200 twice a day - tamsulosin 0.4 mg twice a day ALLERGIES: None known. PHYSICAL EXAMINATION: Current blood pressure (BP) is 227/105. He is afebrile. Vital signs otherwise stable. Oxygen saturation 97%. GENERAL APPEARANCE: He is alert, conversant. He is fully oriented. Apparently we met briefly several years ago, and he was alert enough to remember and recall details of that. Pupils equal, reactive to light. tympanic membranes (TMs) and oropharynx benign. NECK: No masses. LUNGS: Clear. HEART: Regular rate and rhythm without murmur. ABDOMEN: Soft, nontender. No masses. Trace edema. Moves arms and legs with equal strength. I did test his gait. Reflexes were a little brisk. LABORATORY DATA: White count 7.1, hemoglobin 9.9, platelets 239. Sodium 135, potassium 5.6, BUN 63, creatinine 3.5. Lactic acid (after seizure) 8.8. Dilantin level 7.8. PT/PTT normal. CT of the brain: No bleed. Chest x-ray: No active disease. IMPRESSION: 1. Seizure, probably subtherapeutic Dilantin level. ER attending spoke with Dr. Colindres, who recommended increasing the dose of Dilantin to 400 mg at bedtime. Continue current dose of Keppra. Dilantin level ordered in the morning. He has been given a half load of Dilantin by the emergency room provider. 2. Hypertension. Blood pressure is elevated from seizure. He is quite hypertensive and on an array of antihypertensives at home. As soon as the medications are reconciled I will order these. I also ordered intravenous (IV) hydralazine, holding for hypotension. 3. Diabetes. Sliding-scale insulin coverage ordered. 4. History of gout. Continue his Uloric. 5. Coronary artery disease. Continue carvedilol, aspirin, and Imdur. 6. Sleep disturbance. Continue Rozerem 8 mg every night. 7. BPH. Continue his tamsulosin 0.4 mg twice a day. Anticipate discharge tomorrow if he remains seizure free overnight.
[2020-10-05] MEDS: hydrALAZINE 20MG/ML 1ML VIAL (J0360 PER 20MG) IV SCH ×2 (17:43→20:55)
[2020-10-05 18:30] VITALS: BP 186/78
[2020-10-05] MEDS: NS 1,000 ML IV SCH ×2 (18:48→22:49)
[2020-10-05] MEDS: ASPIRIN 81MG ENTERIC TABLET PO SCH (18:51)
[2020-10-05] MEDS: CLOPIDOGREL 75 MG TAB PO SCH (18:51)
[2020-10-05] MEDS: FEBUXOSTAT 40 MG TABLET (ULORIC) PO SCH (18:52)
[2020-10-05] MEDS: FOLIC ACID 1 MG TAB PO SCH (18:52)
[2020-10-05] MEDS: **hydrALAZINE** 50 MG TAB PO SCH ×2 (18:52→20:52)
--- NOTE | 2020-10-05 19:56 | ECGEPIP ---
[facility] - ED Test Date: 2020-10-05 Pat Name: RADHA MONTES Department: Room: - Gender: Male Entry Level Administrative Assistant: ER : 1950 Requested By: ROSHNI Calvo Order Number: [id number] Reading MD: Tahira Pennington Measurements Intervals [place] Rate: 87 P: 75 AK: 252 QRS: -18 QRSD: 104 T: 62 QT: 374 QTc: 450 Interpretive Statements Sinus rhythm with 1st degree AV block Septal infarct , age undetermined NSTTW abnormalities increased rate 06/30/20 Electronically Signed on 10-05-2020 19:57:12 EDT by Tahira Pennington
[2020-10-05 20:00] VITALS: BP 157/67
[2020-10-05] MEDS: ISOSORBIDE MON. (IMDUR) 60 MG XR TAB PO SCH (20:50)
[2020-10-05] MEDS: CARVedilol 12.5 MG TAB PO SCH (20:51)
[2020-10-05] MEDS: levETIRAcetam 250MG TABLET (KEPPRA) PO SCH (20:53)
[2020-10-05] MEDS: TAMSULOSIN 0.4 MG CAP PO SCH (20:53)
[2020-10-05] MEDS ORDERED: RAMELTEON 8 MG TAB (ROZEREM) PO SCH (21:00)
[2020-10-05] MEDS: SODIUM BICARBONATE 325 MG TAB PO SCH (21:00)
[2020-10-05] MEDS ORDERED: PHENYTOIN ER 100 MG CAP PO SCH (21:00)
[2020-10-06] VITALS: BP 135/56
[2020-10-06] MEDS: hydrALAZINE 20MG/ML 1ML VIAL (J0360 PER 20MG) IV SCH ×4 (01:00→12:51)
[2020-10-06 04:00] VITALS: BP 123/58
[2020-10-06] MEDS: NS 1,000 ML IV SCH ×2 (05:18→12:42)
[2020-10-06 06:58] LABS: HEMATOCRIT 25.9 % (42.0-52.0); HEMOGLOBIN 8.4 g/dl (13.5-17.5); MEAN CORPUSCULAR HEMOGLOBIN 29.3 pg (27.0-33.0); MEAN CORPUSCULAR HGB CONC 32.4 g/dl (32.0-36.5); MEAN CORPUSCULAR VOLUME 90.2 fl (80.0-96.0); PLATELET COUNT, AUTOMATED 212 10^3/uL (150-450); RED BLOOD COUNT 2.87 10^6/uL (4.30-6.10)
[2020-10-06 07:26] LABS: CALCIUM LEVEL 8.3 MG/DL (8.8-10.2); CREATININE FOR GFR 3.2 MG/DL (0.70-1.30); GLOMERULAR FILTRATION RATE 20.6 (>49); POTASSIUM SERUM 4.3 MEQ/L (3.5-5.1)
[2020-10-06 08:59] VITALS: BP 128/68
[2020-10-06] MEDS: ASPIRIN 81MG ENTERIC TABLET PO SCH (08:59)
[2020-10-06] MEDS: ISOSORBIDE MON. (IMDUR) 60 MG XR TAB PO SCH (08:59)
[2020-10-06] MEDS: TAMSULOSIN 0.4 MG CAP PO SCH (08:59)
[2020-10-06] MEDS: FOLIC ACID 1 MG TAB PO SCH (09:00)
[2020-10-06] MEDS ORDERED: CALCITRIOL 0.25 MCG CAP (S0169) PO SCH (09:00)
[2020-10-06] MEDS: **hydrALAZINE** 50 MG TAB PO SCH (09:00)
[2020-10-06] MEDS: SODIUM BICARBONATE 325 MG TAB PO SCH (09:01)
[2020-10-06] MEDS: CARVedilol 12.5 MG TAB PO SCH (09:01)
[2020-10-06] MEDS: CLOPIDOGREL 75 MG TAB PO SCH (09:01)
[2020-10-06] MEDS: levETIRAcetam 250MG TABLET (KEPPRA) PO SCH (09:01)
[2020-10-06] MEDS: FEBUXOSTAT 40 MG TABLET (ULORIC) PO SCH (09:02)
[2020-10-06] MEDS ORDERED: PHEN100C PO (11:29)
--- NOTE | 2020-10-06 21:43 | DS.PDOC ---
Discharge Summary General Date of Admission Oct 05, 2020 at 14:24 Date of Discharge Oct 06, 2020 Discharge Summary PROCEDURES PERFORMED DURING STAY: None ADMITTING DIAGNOSES: 1. Seizure 2. Hypertension 3. Diabetes mellitus 4. Gout 5. CAD 6. Sleep disturbance 7. BPH DISCHARGE DIAGNOSES: 1. Seizure 2. Hypertension 3. Diabetes mellitus 4. Gout 5. CAD 6. Sleep disturbance 7. BPH COMPLICATIONS/CHIEF COMPLAINT: Seizure. HISTORY OF PRESENT ILLNESS: Mr. Isaac is a 70 year old male with history of frontal lobe hematoma s/p resection who presents post-ictally from seizure. He had a right frontal hematoma in June 2018 was was operated on at [facility]. He was put on phenytoin and levetiracetam by their neurologist. He has been having seizures intermittently intermittently since at that time. On day of admission, he was found by his unresponsive in a postictal state. In the ED, his phenytoin level was found to be subtherapeutic. Otherwise, he had a lactic acid level of 8 which was most likely secondary to his seizure like activity. HOSPITAL COURSE: Mr. Isaac was loaded with IV phenytoin and his PO phenytoin was increased from 300mg qHS to 400mg qHS. He did not have any signs of infection. His levels may have been subtherapeutic which may have lead to the seizure. I did not reach his neurologist, but I was able to reach the neurologist flood control engineer at [place]. No further work up needed at this time. Today, patient felt well. Denied any chest pain or dyspnea. No seizure activity overnight. Patient was discharged home. DISCHARGE MEDICATIONS: Please see below. ALLERGIES: Please see below. PHYSICAL EXAMINATION ON DISCHARGE: VITAL SIGNS: Please see below. GENERAL: Comfortable, in no apparent distress HEENT: Head normocephalic, atraumatic NECK: Supple CARDIOVASCULAR EXAMINATION: Regular rate and rhythm RESPIRATORY EXAMINATION: Lungs clear to auscultation bilaterally ABDOMINAL EXAMINATION: Soft, non-tender, normal bowel sounds EXTREMITIES: No pitting edema bilaterally SKIN: Warm and dry NEUROLOGICAL EXAMINATION: CN 3-12 grossly intact PSYCHIATRIC EXAMINATION: Normal mood and affect LABORATORY DATA: Please see below. IMAGING: Radiologist interpretation CT head without contrast No acute findings. Old right frontal craniotomy with subjacent tissue loss. CXR There is no acute cardiopulmonary disease. PROGNOSIS: Good ACTIVITY: As tolerated. DIET: No salt added diet DISCHARGE PLAN: Home DISPOSITION: Home, Self-Care. DISCHARGE INSTRUCTIONS: 1. Follow up with your PCP within a week 2. Follow up with your neurologist within a week 3. Do not drive until cleared by your neurologist DISCHARGE CONDITION: Stable. Total time spent on discharge planning, discharge summary, and medication reconciliation: 40 minutes Vital Signs/I&Os Vital Signs Date Time Temp Pulse Resp B/P (MAP) Pulse Ox O2 Delivery O2 Flow Rate FiO2 10/06/20 09:01 69 10/06/20 08:59 128/68 10/06/20 08:00 98.6 17 98 Room Air I&O- Last 24 Hours up to 6 AM 10/06/20 06:00 Intake Total 740 ml Output Total 180 ml Balance 560 ml Laboratory Data Labs 24H Laboratory Tests 2 10/06/20 06:34: Nucleated Red Blood Cells % (auto) 0.0 10/06/20 06:35: Anion Gap 10, Glomerular Filtration Rate 20.6L, Calcium Level 8.3L, Phenytoin (Dilantin) Level 12.9 CBC/BMP Laboratory Tests 10/06/20 06:34 10/06/20 06:35 Microbiology Microbiology 10/05/20 Respiratory Virus Panel (PCR) ([facility]) - Final, Complete Discharge Medications Scheduled Amlodipine Besylate (Amlodipine Besylate) 10 Mg Tablet, 10 MG PO DAILY, (Reported) Aspirin (Aspirin EC) 81 Mg Tab, 81 MG PO DAILY, (Reported) Calcitriol (Calcitriol) 0.25 Mcg Capsule, 0.75 MCG PO DAILY, (Reported) thursday thru thursday only Carvedilol (Carvedilol) 25 Mg Tablet, 50 MG PO BID, (Reported) Clopidogrel Bisulfate (Clopidogrel) 75 Mg Tablet, 75 MG PO DAILY, (Reported) Epoetin Murphy-Epbx (Retacrit) 4,000 Unit/1 Ml Vial, 1 DOSE INJ QMONTH, (Reported) Febuxostat (Uloric) 80 Mg Tablet, 120 MG PO DAILY, (Reported) Folic Acid (Folic Acid) 1 Mg Tablet, 1 MG PO DAILY, (Reported) Isosorbide Mononitrate (Isosorbide Mononitrate ER) 60 Mg Tab.er.24h, 60 MG PO BID, (Reported) Levetiracetam (Keppra) 250 Mg Tablet, 250 MG PO BID, (Reported) Phenytoin Sodium Extended (Phenytoin Sodium Extended) 100 Mg Capsule, 400 MG PO QHS Ramelteon (Rozerem) 8 Mg Tablet, 8 MG PO QHS, (Reported) Sodium Bicarbonate (Sodium Bicarbonate) 650 Mg Tablet, 1,300 MG PO BID, (Reported) Tamsulosin HCl (Flomax) 0.4 Mg Capsule, 0.4 MG PO BID, (Reported) hydrALAZINE HCL (Hydralazine HCl) 100 Mg Tablet, 100 MG PO TID, (Reported) Scheduled PRN Acetaminophen (Acetaminophen) 325 Mg Tablet, 650 MG PO QID PRN for PAIN, (Reported) Albuterol Sulf (Albuterol Sulfate) 2.5 Mg/3 Ml Vial.neb, 2.5 MG INH Q4HP PRN for SHORTNESS OF BREATH, (Reported) Ammonium Lactate (Ammonium Lactate) 12% Cream..g., 1 DOSE TOP DAILY PRN for DRY SKIN, (Reported) Allergies Coded Allergies: No Known Allergies (Verified , 08/07/20) ISIDRO ARTHUR DO Oct 06, 2020 21:43
--- NOTE | 2020-10-06 23:59 | CR ---
NEPHROLOGY CONSULTATION DATE: 10/06/2020 REQUESTING PHYSICIAN: Colt Kwong M.D. CONSULTING: PHYSICIAN: Sabino Mayers M.D. REASON FOR CONSULTATION: Acute kidney injury superimposed on chronic kidney disease and hyperkalemia. HISTORY OF PRESENT ILLNESS: Mr. Isaac is a 70-year-old gentleman with known history of diabetes, hypertension, recurrent anemia, stage 3 to stage 4 of chronic kidney disease, and history of prior stroke. In 2019 he was discovered to have a mass in his frontal lobe and a surgical resection was done at [facility]. Pathology was consistent with subacute infarction. He had a complicated hospitalization following that when he required rehab and also had urinary retention and acute renal failure. In any event, he has been doing well and was in his usual state of health on the day of admission when he was working on his boat and then came inside and sat down in the chair. He was discovered by his son on the floor and brought to the Emergency Room with a possible seizure. He was admitted and a Nephrology consultation was requested. The patient was seen this morning. PAST MEDICAL AND SURGICAL HISTORY: The patient's past medical and surgical history is significant for: 1. Longstanding history of diabetes. 2. Hypertension. 3. Recurrent anemia with GI bleed. 4. Stage 3 to stage 4 of chronic kidney disease. 5. Coronary artery disease. 6. Frontal lobe hematoma and stroke in the past, status post resection. PAST SURGICAL HISTORY: The patient's past surgical history is significant for: 1. Bilateral carotid endarterectomies. 2. Frontal lobe mass resection. 3. Bilateral cataract surgery. FAMILY HISTORY: The patient's family history is negative for end-stage renal disease. PERSONAL AND SOCIAL HISTORY: The patient lives with his and he does not smoke anymore and does not drink anymore. He does a prior history of alcohol use. MEDICATIONS: His home medications include: 1. Amlodipine 10 mg daily. 2. Aspirin 81 mg daily. 3. Calcitriol 0.75 mcg 6 days a week. 4. Carvedilol 50 mg twice daily. 5. Chlorthalidone 25 mg daily. 6. Plavix 75 mg daily. 7. Uloric 80 mg daily. 8. Ferrous Sulfate 325 mg daily. 9. Folic Acid one mg daily. 10. Hydralazine 100 mg three times daily. 11. Imdur 60 mg twice daily. 12. Keppra 250 mg twice daily. 13. Dilantin 300 mg at bedtime. 14. Sodium Bicarbonate 1,200 mg twice daily. 15. Tamsulosin 0.4 mg twice daily. ALLERGIES: The patient has no known drug allergies. REVIEW OF SYSTEMS: At present he denies any headache or dizziness. He is laying in his bed comfortably. He denies any fever or chills. Ears, nose and throat are unremarkable. Cardiovascular system is significant for difficult to control hypertension and generalized vascular disease. Respiratory system is significant for mild asthma or chronic obstructive pulmonary disease. GI system is significant for recurrent bleed, possibly from AV malformations. Genitourinary system is significant for benign prostatic enlargement and urinary retention in the past. He has been doing well on Flomax. Musculoskeletal system is significant for history of gout. He denies any leg edema at present. Endocrine system is significant for type 2 diabetes and secondary hyperparathyroidism. Neurological system is as per history of present illness. Psychosocial system is negative for any significant anxiety or depression. Skin is negative for rash or ulcers. PHYSICAL EXAMINATION: GENERAL APPEARANCE: The patient is awake and alert at the time of my visit this morning. He is laying in his bed without any distress. VITAL SIGNS: Temperature 98.6 degrees Fahrenheit, heart rate 70 per minute, respiratory rate 17 per minute, blood pressure 128/68 mm of mercury and oxygen saturation is 98% on room air. HEENT: His head is atraumatic. NECK: Supple and JVD is mildly elevated. HEART: Regular and without a murmur or a rub. LUNGS: Clear to auscultation bilaterally. ABDOMEN: Soft and nontender and bowel sounds are normal. EXTREMITIES: Without any cyanosis or clubbing. There is no peripheral edema. NEUROLOGICAL: He is grossly intact without any focal deficits. LABORATORY DATA: On admission BUN 63 and creatinine 3.5. His initial lactic acid level was 8.8 and a repeat one 0.8. Sodium was 135, potassium 5.6, CO2 17, glucose 245 and calcium 8.8. Troponin less than 0.02, total protein 7.2 and albumin 4.0. Initial hemoglobin was 9.9 and hematocrit 30.6. WBC count 7.1 and platelet count 239. Dilantin level was 7.8. PROBLEMS: 1. Acute kidney injury superimposed on chronic kidney disease - The patient does have advanced chronic kidney disease stage 4, mild increase in his serum creatinine and BUN, probably related to mild dehydration. He is receiving IV fluids at 150 mL per hour and I am going to cut it down to 80 mg per hour due to risk of hypervolemia. The patient is now fully alert and he can drink fluids orally. 2. Hyperkalemia - The patient had mild hyperkalemia, probably related to seizure and has already improved. At the present no intervention is needed. 3. Metabolic acidosis and lactic acidosis most likely related to acute seizure and resolved quickly. He has received IV fluids and no other intervention is needed at present. 4. Anemia his anemia did get worse with a drop in his hemoglobin down to 8.4 today and hematocrit 25.9. Partly this is chronic anemia and partly this is due to IV fluids. His IV fluid is being cut down to 80 mL per hour. The patient can be followed up as an outpatient. He has received transfusions in the past, however at present there is no emergent indication for a transfusion. 5. Hypertension his blood pressure seems very well controlled on current medications. 6. Metabolic acidosis - The patient has chronic metabolic acidosis and has been on sodium bicarbonate as an outpatient which should be continued. 7. Disposition and follow up - The patient regularly follows up in our clinic. Once he gets discharged he will follow up in our clinic in 1-2 weeks. Thank you for involving me in the evaluation of Mr. Isaac.
== END 2020-10-06 13:15 | disposition home or self-care (01) ==
LOC: EDBD 11:49 → M ED 11:49 → M MSPAV 14:24 → ENRESERV 14:40 → M PCU 17:15
PROVIDERS: ADMIT Family Medicine; ATTEND Internal Medicine
DX: G40.901 Epilepsy, unspecified, not intractable, with status epilepticus (principal); I10 Essential (primary) hypertension; M10.9 Gout, unspecified; E11.9 Type 2 diabetes mellitus without complications; G47.61 Periodic limb movement disorder; N40.0 Benign prostatic hyperplasia without lower urinary tract symptoms; Z79.82 Long term (current) use of aspirin; Z79.899 Other long term (current) drug therapy; Z79.02 Long term (current) use of antithrombotics/antiplatelets
CPT/HCPCS: 36415; 70450; 71045; 80048; 80053; 80180; 80185; 82550; 82553; 83605; 84484; 85025; 85027; 85610; 85730; 87798; 93005; 96361; 96374; 96375; 99285; J0360; J1165

== ENCOUNTER → 2020-11-21 | Outpatient (REF) | payer OTHER, MEDICARE ==
[~2020-11-21] MED LIST changes: +ACET1TAB55 PO; +AMMO12CR7 TOP; +PHEN100C PO; +RETA4000 INJ
== END ==
LOC: M LAB REF 16:36
PROVIDERS: ATTEND Nurse Practitioner Family
DX: Z79.899 Other long term (current) drug therapy (principal)

== ENCOUNTER 2020-12-03 23:57 | Emergency (ER) | payer OTHER, MEDICARE ==
[~2020-12-03] VITALS: Ht 188 cm; Wt 97.1 kg
[2020-12-04 01:10] LABS: RSV AMPLIFICATION NEGATIVE (NEGATIVE)
== END 2020-12-04 01:46 | disposition expired ==
LOC: M ED 23:57
DX: I46.9 Cardiac arrest, cause unspecified (principal); E11.9 Type 2 diabetes mellitus without complications; I25.10 Atherosclerotic heart disease of native coronary artery without angina pectoris; E78.5 Hyperlipidemia, unspecified; I10 Essential (primary) hypertension; Z79.899 Other long term (current) drug therapy